=== PATIENT | female | born 1955 | race American Indian/Alaskan Native ===

== ENCOUNTER 2017-02-02 15:29 | Inpatient (IN) | payer BC ==
--- NOTE | 2017-02-02 15:59 | ED PDOC ---
Arrival/HPI - General Chief Complaint: Medical Clearance Time Seen by Provider: 02/02/17 15:47 Historian: Patient, Other (Fianc) - History of Present Illness Time/Duration: > week Symptom Onset: Gradual Symptom Course: Worsening Quality: Aching, Pressure Severity Level: Moderate Activities at Onset: Rest Associated Symptoms (Text): 02/02/17 15:55 Patient complains of approximately a 1-2 week history of generalized pressure- like headache. There is been some nausea and vomiting. Currently there is no nausea. Currently there is no headache. She has seen her PMD several times for these complaints. She had a CT scan of the head as an outpatient today. She was called by her PMD to go to the emergency department for an abnormal CT scan. I reviewed the outpatient CT scan this morning, and it appears that she has 2 metastatic brain masses. Unclear where the primary is. Past Medical History - Infectious Disease Hx of Infectious Diseases: None - Reproductive Menopause: Yes - Cardiac Hx Hypertension: Yes - Psychiatric Hx Depression: No Hx Emotional Abuse: No Hx Physical Abuse: No Hx Substance Use: No - Surgical History Hx Orthopedic Surgery: Yes (R KNEE) - Anesthesia Hx Anesthesia: Yes Hx Anesthesia Reactions: No Hx Malignant Hyperthermia: No - Suicidal Assessment Feels Threatened In Home Enviroment: No Family/Social History - Physician Review Nursing Documentation Reviewed: Yes Family/Social History: Unknown Family HX Smoking Status: Light Smoker < 10 Cigarettes Daily Hx Alcohol Use: Yes Frequency of alcohol use: Socially Hx Substance Use: No Hx Substance Use Treatment: No Allergies/Home Meds Allergies/Adverse Reactions: Allergies No Known Allergies Allergy (Verified 02/02/17 15:40) Review of Systems - Physician Review All systems were reviewed & negative as marked: Yes - Review of Systems Constitutional: Fatigue. absent: Fevers Respiratory: absent: SOB, Cough Cardiovascular: absent: Chest Pain, Palpitations, Syncope Gastrointestinal: Nausea, Vomiting. absent: Abdominal Pain, Diarrhea Neurological: Headache, Dizziness. absent: Focal Weakness, Gait Changes, Speech Changes, Facial Droop, Disequilibrium, Seizure Physical Exam Vital Signs Temp Pulse Resp BP Pulse Ox 02/02/17 15:52 97.8 F 82 16 119/66 98 02/02/17 15:33 97.6 F 93 H 19 115/67 98 Temperature: Afebrile Blood Pressure: Normal Pulse: Regular Respiratory Rate: Normal Appearance: Positive for: Well-Appearing, Non-Toxic, Comfortable Pain Distress: None Mental Status: Positive for: Alert and Oriented X 3 - Systems Exam Head: Present: Atraumatic, Normocephalic Pupils: Present: PERRL Extroacular Muscles: Present: EOMI Conjunctiva: Present: Normal Ears: Present: NORMAL TM, Normal Canal. No: Erythema Mouth: Present: Moist Mucous Membranes Pharnyx: No: ERYTHEMA, EXUDATE, TONSILS ENLARGED Neck: Present: Normal Range of Motion Respiratory/Chest: Present: Clear to Auscultation, Good Air Exchange, Decreased Breath Sounds. No: Respiratory Distress, Accessory Muscle Use Cardiovascular: Present: Regular Rate and Rhythm, Normal S1, S2. No: Murmurs Abdomen: Present: Normal Bowel Sounds. No: Tenderness, Distention, Peritoneal Signs, Rebound, Guarding Upper Extremity: Present: Normal Inspection. No: Cyanosis, Edema Lower Extremity: Present: Normal Inspection. No: Edema Neurological: Present: GCS=15, CN II-XII Intact, Speech Normal, Motor Func Grossly Intact, Normal Cerebellar Funct, Gait Normal Skin: Present: Warm, Dry, Normal Color. No: Rashes Psychiatric: Present: Alert, Oriented x 3, Normal Insight, Normal Concentration Medical Decision Making ED Course and Treatment: 02/02/17 16:02 Discussed in detail with Dr. Darby. Patient has an unknown primary. She requested the patient be admitted to telemetry because of her seizure risk and consults with neurology and neurosurgery, Dr Paz and Kaveh. 02/02/17 16:08 EKG shows normal sinus rhythm rate approximately 90 with no acute changes 02/02/17 16:13 Discussed with who requests MRI with gadolinium and Decadron 4 mg IV every 6 hours and he will see the patient in the morning. I will order the MRI for him. 02/02/17 16:[address]V Paz, who will see the patient in consult - Lab Interpretations Lab Results: 02/02/17 16:00 Lab Results 02/02/17 16:00: WBC 5.3, RBC 5.35, Hgb 17.2 H, Hct 48.5 H, MCV 90.7, MCH 32.1, MCHC 35.5, RDW 12.5, Plt Count 213, MPV 10.2, Gran % 73.9 H, Lymph % (Auto) 21.7 L, [place] % (Auto) 3.6, Eos % (Auto) 0.6 L, Baso % (Auto) 0.2, Gran # 3.88, Lymph # 1.1 L, [place] # 0.2, Eos # 0.0, Baso # 0.01 - RAD Interpretation Radiology Orders: 02/02/17 15:53 CHEST PORTABLE [RAD] Stat 02/02/17 16:14 BRAIN WITH CONTRAST [MRI] Stat Chest 1 view shows no infiltrate effusion or cardiomegaly 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 - Medication Orders Current Medication Orders: Discontinued Medications Dexamethasone (Decadron Inj) 10 mg IVP STAT STA Stop: 02/02/17 15:55 Last Admin: 02/02/17 16:11 Dose: 10 MG IVP Administration Document 02/02/17 16:11 [email or web address] (Rec: 02/02/17 16:12 [email or web address] [id number]) Charges for Administration # of IVP Administrations 1 Ondansetron HCl (Zofran Inj) 4 mg IVP ONCE ONE Stop: 02/02/17 15:55 Last Admin: 02/02/17 16:12 Dose: 4 MG IVP Administration Document 02/02/17 16:12 [email or web address] (Rec: 02/02/17 16:12 [email or web address] [id number]) Charges for Administration # of IVP Administrations 1 Disposition/Present on Arrival - Present on Arrival Any Indicators Present on Arrival: No History of DVT/PE: No History of Uncontrolled Diabetes: No Urinary Catheter: No History of Decub. Ulcer: No History Surgical Site Infection Following: None - Disposition Have Diagnosis and Disposition been Completed?: Yes Diagnosis: Mass of brain Disposition: HOSPITALIZED Disposition Time: 16:34 Patient Plan: Admission, Telemetry Condition: FAIR
[2017-02-02 16:21] LABS: ADD MANUAL DIFF? NO
[2017-02-02 16:24] LABS: BASO # 0.01 K/mm3 (0.0-2.0); BASO % 0.2 % (0.0-3.0); EOS % 0.6 % (1.5-5.0); GRAN # 3.88 (1.4-6.5); GRAN % 73.9 % (50.0-68.0); HEMATOCRIT 48.5 % (36.0-48.0); LYMPH # 1.1 (1.2-3.4); LYMPH % 21.7 % (22.0-35.0); MEAN CELL VOLUME 90.7 fL (80.0-105.0); MEAN CORPUSCULAR HEMOGLOBIN 32.1 pg (25.0-35.0); MEAN CORPUSCULAR HGB CONC 35.5 g/dl (31.0-37.0); MEAN PLATELET VOLUME 10.2 fl (7.0-11.0); MONO # 0.2 (0.1-0.6); MONO % 3.6 % (1.0-6.0); PLATELET COUNT 213 10^3/uL (120.0-450.0); RED CELL DISTRIBUTION WIDTH 12.5 % (11.5-14.5); WHITE BLOOD COUNT 5.3 10^3/ul (4.5-11.0)
[2017-02-02 16:33] LABS: ALB/GLOB RATIO 1.1 (1.1-1.8); ALKALINE PHOSPHATASE 98 U/L (38-133); ALT/SGPT 12 U/L (7-56); AST/SGOT 18 U/L (15-39); BILIRUBIN,TOTAL 0.8 mg/dL (0.2-1.3); BLOOD UREA NITROGEN 15 mg/dL (7-21); CARBON DIOXIDE 29 mmol/L (21-33); CHLORIDE 100 mmol/L (98-107); GFR AFRICAN-AMERICAN > 60; GLUCOSE,RANDOM 114 mg/dL (70-110); SODIUM 141 mmol/L (132-148); TOTAL PROTEIN 8.4 g/dL (5.8-8.3)
[2017-02-02 16:36] LABS: INR 1.02 (0.93-1.08); PARTIAL THROMBOPLASTIN TIME 31.3 Seconds (23.7-30.8)
[2017-02-02 16:45] LABS: TROPONIN I < 0.01 ng/mL
--- NOTE | 2017-02-02 17:07 | RAD ---
HISTORY: admit COMPARISON: No prior. FINDINGS: LUNGS: No active pulmonary disease. PLEURA: No significant pleural effusion identified, no pneumothorax apparent. CARDIOVASCULAR: Normal. OSSEOUS STRUCTURES: No significant abnormalities. VISUALIZED UPPER ABDOMEN: Normal. OTHER FINDINGS: None. IMPRESSION: No active disease.
--- NOTE | 2017-02-02 17:56 | MRI ---
PROCEDURE: MRI BRAIN WITH AND WITHOUT CONTRAST HISTORY: mass COMPARISON: CT of the head earlier same day TECHNIQUE: Multiplanar, multisequence MR images of the brain were obtained with and without intravenous contrast enhancement. 15 cc of Omniscan FINDINGS: HEMORRHAGE: None DWI: No evidence of an acute or early subacute infarction. BRAIN PARENCHYMA: The MRI better characterizes the mass is seen earlier on CT. The masses in the frontal lobes appear to be contiguous but separate. There is a predominantly solid enhancing mass in the right frontal lobe inferiorly and anteriorly measuring 2 x 3.1 cm on axial image 12 series 12. In the left frontal lobe there is a more cystic appearing mass with an enhancing rim measuring 3.5 x 5.7 cm. This compresses the left frontal horn and may be invading the corpus callosum. There is some mass effect midline shift to the right. There is a cystic mass in the right cerebellar hemisphere with a thick enhancing rim. There is a moderate amount of vasogenic edema. This mass compresses the 4th ventricle and also produces tonsillar herniation into the foramen magnum inferiorly and loss of the basal cisterns superiorly. The tonsils extend 5 mm below the foramen magnum. ENHANCEMENT: As above VENTRICLES: There is mild hydrocephalus with enlargement of the temporal horns. CRANIUM: Unremarkable. ORBITS: Grossly unremarkable. PARANASAL SINUSES/MASTOIDS: Clear VASCULAR SYSTEM: Skull base flow voids intact. OTHER FINDINGS: Findings were discussed with Dr. Paniagua at 5:30 p.m. 02/02/2017. IMPRESSION: Complex cystic and solid masses in both frontal lobes and the right cerebellar hemisphere consistent with metastatic disease. There is mild hydrocephalus and tonsillar herniation as described above
[2017-02-02] MEDS: Dexamethasone 4 mg/1 ml IVP SCH (21:21)
[2017-02-02] MEDS ORDERED: Influenza Vaccine 45 MCG/0.5 ml IM ONE (21:30)
[2017-02-02] MEDS ORDERED: Pneumococcal 23-Valent Vaccine IM ONE (21:30)
[2017-02-02 21:31] VITALS: BMI 25.4
--- NOTE | 2017-02-02 22:56 | CON ---
DATE: 02/02/2017 This is a 61-year-old black female with past medical history not significant. Came with headache whi ch is pressure-like headache for the last 1-2 weeks, with some nausea and vomiting. She was sent fro m the office. CAT scan of the head showed multiple metastatic lesions, so called to evaluate the pat ient. PAST MEDICAL HISTORY: As above. REVIEW OF SYSTEMS: A 10-point review of system was negative. On examination, blood pressure 115/67. HEENT: Normocephalic, atraumatic. NECK: Supple. NEUROLOGIC EXAMINATION: Alert, awake, oriented x 3. No aphasia. Cranial nerves II-XII were tested. Pupils reactive. EOM intact. Motor Examination: Moves all the extremities equally. Tone normal. Deep tendon reflexes 1+. Both plantars are downgoing. Sensory: No dysmetria, no sensory findings . Cerebellar: Gait deferred. IMPRESSION: A 61-year-old black female with no significant past medical history, came with a history of headaches for the past 2 weeks. MRA of the head was done which showed multiple metastatic lesion s in the brain. The patient was started on Decadron, and also Keppra 500 mg p.o. twice a day. Will do EEG on Saturday, and neurosurgeon, Dr. Ward, on the case, and oncologist also on the case. Workup is in progress. Will follow up. Matias Paz MD cc: [id number] TT: 02/02/2017 22:55:21 Confirmation # [id number] Dictation # [id number] dominick
--- NOTE | 2017-02-03 03:28 | HP ---
CHIEF COMPLAINT: Abnormal CAT scan of the head and memory problem. HISTORY OF PRESENT ILLNESS: The patient is a 61-year-old lady with history of hypertension, hypercho lesterolemia, was sent from her job to my office for medical clearance because the patient was forget ting things. I did her mini mental status test in my office and sent her for CAT scan of the head an d neurologist followup, but today I received a call from Dr. Olivera that CAT scan is not normal. The n, my office called the patient in her home to come in the Emergency Room, then patient came to the E mergency Room. MRI is done. I spoke to ER doctor Dr. Storey who admitted the patient. The ER physician said that she had an episode of lightheadedness and one attack of nausea, vomiting, but tod ay she did not have any nausea, or vomiting. PAST MEDICAL HISTORY: Menopause, hypertension, history of right knee surgery. FAMILY HISTORY: Father and mother, noncontributory. HABITS: Light smoker, less than 10 cigarettes per day. Alcohol use, yes. SOCIAL HISTORY: Substance abuse, never. ALLERGIES: The patient is not allergic with any medications. REVIEW OF SYSTEMS: The patient was seen and examined, at the moment no nausea or vomiting. No heada kali, no dizziness. No facial droop, no seizures, no gait change, no speech change. No fever, no chi lls. Does not look like toxic. PHYSICAL EXAMINATION: VITAL SIGNS: Temperature 98.8, pulse 70, respiratory rate 16, blood pressure 105/72, and pulse oxime try 98. HEENT: Head normocephalic, atraumatic. Eyes: PERRLA. Extraocular movements intact. Conjunctivae c lear. Eyelids unremarkable. Nose patent. Mucous membranes moist. NECK: Supple. No carotid bruit, JVD or thyromegaly. CHEST: No chest pain, no palpitation. ABDOMEN: Soft. Bowel sounds positive. No organomegaly. EXTREMITIES: No edema, no cyanosis. NEUROLOGIC: The patient is awake, alert, moving all 4 extremities. No focal deficits. LABORATORY DATA: White blood cell is 5.3, hemoglobin 7.2, hematocrit 48.5, platelets 213. Sodium 14 1, potassium 4.0, BUN 15, creatinine 0.9, glucose 114. Liver function tests within normal limits. ASSESSMENT AND PLAN: The patient is a 61-year-old lady with polycythemia, hyperglycemia, history of hypertension, hypercholesterolemia and has memory problem. Did MRI of the head. Complex cystic and solid masses in both the frontal lobes and the right cerebella and is consistent with metastatic dise ase. There is mild hydrocephalus and tonsillar herniation as described above. Discussion done with Dr. Michael Olivera and Dr. Storey physician. Chest x-ray, no active disease. The patient guillaume t for mammography on 03/03/2016 and that was within normal limits. Consult called with Dr. Paz t neurologist and Dr. Lisandro Linn. Started the patient on dexamethasone by Dr. Matias Paz. Flu vaccination given. Started on Keppra to prevent seizures. Pneumococcus given. Tylenol in franck e if she has headache, but she does not have headache. Zestoretic for her hypertension. We will do CAT scan of chest and abdomen. We will try to locate the primary. Gastrointestinal and deep venous thrombosis prophylaxis. Repeat labs. We will follow up. Yaneth Darby MD cc: [id number] TT: 02/03/2017 03:27:14 [email or web address]
[2017-02-03] MEDS: Dexamethasone 4 mg/1 ml IVP SCH ×3 (05:53→21:44)
[2017-02-03 08:00] LABS: HEMATOCRIT 46.3 % (36.0-48.0); MEAN CELL VOLUME 89.9 fL (80.0-105.0); MEAN CORPUSCULAR HEMOGLOBIN 32.4 pg (25.0-35.0); MEAN CORPUSCULAR HGB CONC 36.1 g/dl (31.0-37.0); MEAN PLATELET VOLUME 10.4 fl (7.0-11.0); RED CELL DISTRIBUTION WIDTH 12.4 % (11.5-14.5); WHITE BLOOD COUNT 5.3 10^3/ul (4.5-11.0)
[2017-02-03] MEDS ORDERED: Barium Sulfate Susp 2.1% w/v, 2.0% w/w 450 mL Bottle PO ONE (08:03)
[2017-02-03 08:15] LABS: BLOOD UREA NITROGEN 13 mg/dL (7-21); CALCIUM 10.5 mg/dL (8.4-10.5); CARBON DIOXIDE 25 mmol/L (21-33); CHLORIDE 102 mmol/L (95-110); GFR AFRICAN-AMERICAN > 60; GLUCOSE,RANDOM 109 mg/dL (70-110); SODIUM 141 mmol/L (132-148)
[2017-02-03 08:22] LABS: POTASSIUM 4.3 mmol/L (3.6-5.0)
--- NOTE | 2017-02-03 09:01 | CARD ---
APPROVED REPORT EKG Measurement Heart [id number] MD [id number] <Conclusion> Normal sinus rhythm Possible Left atrial enlargement Borderline ECG
--- NOTE | 2017-02-03 13:11 | CT ---
PROCEDURE: CT Abdomen and Pelvis without intravenous contrast HISTORY: R/O METS COMPARISON: None. TECHNIQUE: Without contrast. Contrast Dose: Radiation dose: Total exam DLP = 393 mGy-cm. FINDINGS: LOWER THORAX: Unremarkable. LIVER: Unremarkable. No gross lesion or ductal dilatation. GALLBLADDER AND BILE DUCTS: Unremarkable. PANCREAS: Unremarkable. No gross lesion or ductal dilatation. SPLEEN: Unremarkable. ADRENALS: Unremarkable. No mass. KIDNEYS AND URETERS: Unremarkable. No hydronephrosis. No solid mass. VASCULATURE: Unremarkable. No aortic aneurysm. BOWEL: Unremarkable. No obstruction. No gross mural thickening. APPENDIX: Unremarkable. Normal appendix. PERITONEUM: Unremarkable. No free fluid. No free air. LYMPH NODES: Unremarkable. No enlarged lymph nodes. BLADDER: Unremarkable. REPRODUCTIVE: Hysterectomy BONES: No acute fracture. OTHER FINDINGS: None. IMPRESSION: No evidence of primary or metastatic malignancy.
--- NOTE | 2017-02-03 13:17 | CT ---
PROCEDURE: CT Chest without contrast HISTORY: R/O CA COMPARISON: MRI of the brain showing solid and cystic metastatic lesions TECHNIQUE: Contiguous axial images were obtained through the chest without intravenous contrast enhancement. Sagittal and coronal reconstructions were performed. Radiation dose (DLP): 275 mGy-cm. FINDINGS: LUNGS: There is a large lung nodule in the left lung apex posteriorly measuring 12 x 16 mm. This is seen on image 14 series 4. This could represent a primary or metastatic malignancy. There is a 7 mm lung nodule in the right upper lobe posteriorly seen on image 24 of series 4. This could represent a metastatic lesion or noncalcified granuloma. Emphysematous changes are seen in the upper lobes. MEDIASTINUM: Unremarkable thoracic aorta. No aneurysm. Normal sized heart. Main pulmonary artery unremarkable. No vascular congestion. There is mediastinal and hilar adenopathy that is calcified consistent with previous granulomatous disease or tuberculosis. PLEURA: No pleural fluid. No pneumothorax. BONES: No fracture. No destructive lesion. UPPER ABDOMEN: Grossly unremarkable. OTHER FINDINGS: None. IMPRESSION: 12 x 16 mm lung nodule in the left lung apex suspicious for a primary malignancy. Small 7 mm nodule right upper lobe posteriorly. Multiple calcified mediastinal lymph nodes consistent with previous granulomatous infection.
--- NOTE | 2017-02-03 15:20 | PN ---
DATE: 02/03/2017 The patient is a 61-year-old female. The patient seen and examined on the bedside, looks comfortable. Dr. Ward, neurosurgeon, was on the bedside also. We interviewed patient together. The patient is still actively smoking from many years. No nausea, vomiting, diarrhea. No hematuria, no hematochezia. Today no headache, no chest pain, no fever, no chills. PHYSICAL EXAMINATION: VITAL SIGNS: Temperature 98.6, pulse 80 , blood pressure 110/68, respiratory rate 16. HEENT: Head normocephalic, atraumatic. Eyes: PERRLA, extraocular muscles intact. Conjunctivae pink. Eyelids unremarkable. Nose patent. Mucous membranes moist. NECK: Supple. No carotid bruit, no JVD, no thyromegaly. CHEST: Bilaterally symmetrical. HEART: S1, S2 positive. LUNGS: Clear to auscultation. ABDOMEN: Soft. Bowel sounds positive. No organomegaly. EXTREMITIES: No edema, no cyanosis. NEUROLOGIC: The patient is awake, alert, moving all 4 extremities. No focal deficits. MEDICATIONS: Decadron, Keppra, Tylenol, Zestril. LABORATORIES: White blood cells 5.3, hemoglobin 15.7, hematocrit 46.3, platelets 214. Sodium 141, potassium 4.3, BUN noted , creatinine 0.7, glucose 109. TSH 0.22. ASSESSMENT AND PLAN: The patient is a 61-year-old lady with polycythemia secondary to smoking, hyperglycemia, hyperthyroidism. Came with densities in the brain. Did CAT scan of the chest. Looks like she has 12 mm x 6 mm lung nodule in the left upper apex, suspicious of primary malignancy, small 7 mm nodule right upper lobe posteriorly, multiple calcified mediastinal lymph nodes consistent with previous granulomatous infection. The patient has history of hypertension, hypercholesterolemia, changing of memory, that is why we did CAT scan of the head, hyperglycemia. MRA of the head and CAT scan of the head and MRI of the abdomen and pelvis reviewed. Length of time discussion done with Dr. Ward. Plan is to go for surgery, but we are getting clearance from cardiology and from pulmonary. We will follow up according to that. Gastrointestinal and deep venous thrombosis prophylaxis. Yaneth Darby MD cc: [id number] TT: 02/03/2017 15:19:29 Confirmation # [id number] Dictation # [id number] MTDD
--- NOTE | 2017-02-04 02:20 | DS ---
SUBJECTIVE: This is a 61-year-old lady who apparently has been noted primarily by her coworkers over the past several weeks to have a little bit change in behavior. She has become forgetful a little b it more emotional and antagonist, perhaps disoriented. She is also noticed significant onset o f severe headaches, particularly over the past 2-3 weeks, question of some nausea, possibly vomiting as well. She underwent an outpatient CT of the brain, which documented 2 large masses, cerebellar an d frontal, was brought into the ER and underwent an MRI of the brain. Neurosurgical evaluation was r equested. PAST MEDICAL HISTORY: Her past medical history most salient simply for hypercholesterolemia, hyperte nsion, no other significant ongoing medical problems. Her history, medications, allergies all reviewed in the chart. Of note is she was taking Naprosyn pr obably twice a day for the headaches up until the day of admission. PHYSICAL EXAMINATION: She is bright, awake, alert. She is oriented x 3. She follows all commands. Pupils equal and reactive. EOMs are full. She has 5/5 strength in 4 extremities. She has a fair a mount of bilateral pronator drift. [id number] is somewhat off on the right, but normal on the le ft. Sensation is grossly intact. Reflexes are minimally if at all increased. Plantars are mute blanca aterally. Gait was not tested. Films show unfortunately a large cystic enhancing mass in the right cerebellum with fair mass effect on the fourth ventricle and brainstem with mild hydrocephalus. There is another enhancing mass, that is predominantly in the right anterior frontal lobe, but does cross the midline of the corpus callos um over to the left side. This is more of an enhancing solid mass with a large cystic component as w ell. 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 In any case, the patient certainly requires decompressive/ biopsy. I would certainly start with the posterior fossa lesion as this is causing hydrocephalus and the beginning of brainstem compressi on. This will hopefully alleviate that and give us a diagnosis. It is my feeling that most likely t he patient will require at least decompression of the bifrontal lesion as well as because of its enor mous size. In any case, I relate the initial recommendation to the patient to undergo the suboccipit al craniectomy and excision of tumor. I explained to her what this would entail. We discussed the p otential risks, complications, alternatives and recovery time. Unfortunately, I think we will have t o hold off at least 3 days because of the significant amount of nonsteroidal anti-inflammatory medica tions the patient was taking. We have already placed her on IV steroids and this has made a good sig nificant difference in her symptoms. She is set for metastatic workup as well. I see that Dr. Nestor crum has ordered an EEG so we will accomplish this over the next couple of days and we will schedule her for the procedure towards the end of the week. Craig Ward MD cc: [id number] TT: 02/04/2017 02:18:57 hn
[2017-02-04] MEDS: Dexamethasone 4 mg/1 ml IVP SCH ×3 (06:16→21:14)
--- NOTE | 2017-02-04 16:27 | CARD ---
APPROVED REPORT EXAM: Two-dimensional and M-mode echocardiogram with Doppler and color Doppler. INDICATION Hypertension/HCVD 2D DIMENSIONS Left Atrium (2D)3.8 (1.6-4.0cm)IVSd1.0 (0.7-1.1cm) LVDd3.9 (3.9-5.9cm)PWd1.0 (0.7-1.1cm) LVDs2.4 (2.5-4.0cm)FS (%) 38.3 % LVEF (%)69.1 (>50%) M-Mode DIMENSIONS Aortic Root2.90 (2.2-3.7cm)Aortic Cusp Exc.1.40 (1.5-2.0cm) Aortic Valve AoV Peak Enqykdeb775.0cm/Daniella Peak GR.11mmHg Mitral Valve MV E Fersgxyl33.2cm/sMV A Dyucvasz94.0cm/sE/A ratio0.9 TDI E/Lateral E'0.0E/Medial E'0.0 Tricuspid Valve TR Peak [id number]/sRAP [id number] Peak Gr.28mmHg [id number] LEFT VENTRICLE The left ventricle is normal size. There is normal left ventricular wall thickness. The left ventricular function is normal.EF-65-70% There is normal LV segmental wall motion. Transmitral Doppler flow pattern is Grade III-reversible restrictive diastolic dysfunction. No left ventricle thrombus noted on this study. There is no ventricular septal defect visualized. There is no left ventricular aneurysm. There is no mass noted in the left ventricle. RIGHT VENTRICLE The right ventricle is normal size. There is normal right ventricular wall thickness. The right ventricular systolic function is normal. ATRIA The left atrium size is normal. The right atrium size is normal. The interatrial septum is intact with no evidence for an atrial septal defect. AORTIC VALVE The aortic valve is thickened but opens well. There is trace aortic regurgitation. There is no aortic valvular stenosis. There is no aortic valvular vegetation. MITRAL VALVE The mitral valve is thickened but opens well. Mitral regurgitation is trace to mild. There is no mitral valve stenosis. There is no evidence of mitral valve prolapse. TRICUSPID VALVE The tricuspid valve leaflets are thickened , but open well. There is trace tricuspid regurgitation.RVSP-38 mmofHg. There is no tricuspid valve stenosis. There is no tricuspid valve prolapse or vegetation. PULMONIC VALVE The pulmonary valve is normal in structure. There is trace pulmonic valvular regurgitation. There is no pulmonic valvular stenosis. GREAT VESSELS The aortic root is normal in size. The ascending aorta is normal in size. The pulmonary artery is normal. The IVC is normal in size and collapses >50% with inspiration. PERICARDIAL EFFUSION There is no pleural effusion. There is no pericardial effusion. <Conclusion> Normal Chamber Size. EF-65-70% Trace to Mild MR/TR Trace TR. RVSP-38 mmof Hg,
--- NOTE | 2017-02-04 18:50 | CON ---
DATE: 02/04/2017 The patient in room 361, bed 1. REASON FOR CONSULTATION: Hypertension, hypercholesterolemia, brain mass, cardiac evaluation for surg roxy. HISTORY OF PRESENT ILLNESS: The patient is a 61-year-old lady with history of hypertension, hypercho lesterolemia, who was noticed by the colleagues in the office that patient had become forgetful. She also complained of headache for the last few weeks. The patient denies any chest pain, shortness of breath, palpitation. PAST HISTORY: Positive for hypertension, hyperlipidemia, right knee surgery, menopause. FAMILY HISTORY: Not significant. HABITS: The patient smokes less than 10 cigarettes a day, drinks only socially. No history of subst ance abuse. ALLERGIES: There are no allergies. REVIEW OF SYSTEMS: All the systems reviewed, positives mentioned in the history, others were negativ e. LIST OF HOME MEDICATIONS: The patient was taking: Naprosyn 500 mg p.o. q.12 hours p.r.n., Vasotec 2 0 mg p.o. daily. The patient's chest x-ray, no active disease. EKG is not done yet. MRI of the brain showed complex cystic and solid masses, both in frontal lobes and the right cerebellar hemisphere consistent with me tastatic disease. There is mild hydrocephalus and tonsillar herniation. Chest CT, ____ 16 mm lung n odule in the left lung apex, suspicious for primary malignancy; small 7 mm nodule right upper lobe po steriorly, multiple calcified ____ mediastinal lymph nodes consistent with previous granulomatous inf ection. EKG showed normal sinus rhythm. PHYSICAL EXAMINATION: VITAL SIGNS: Blood pressure 101/62, respirations 17, pulse 54, temperature 98.1. HEENT: Head is normocephalic. Eyes: Pupils normal. Conjunctivae normal. Nose and throat normal. NECK: JVP low. Carotid equal. THORAX: AP diameter normal. LUNGS: Clear. CARDIOVASCULAR: S1, S2. ABDOMEN: Soft, no tenderness, no organomegaly. Bowel sounds normal. EXTREMITIES: No clubbing, no cyanosis. LABORATORY DATA: WBC 5.3, hemoglobin 16.7, hematocrit 46.3, platelet 214. Sodium 141, potassium 4.3 , BUN 13, creatinine 0.7. TSH 0.22. AST 18, ALT 12. Troponin less than 0.01. DIAGNOSTIC DATA: Chest x-ray: No active disease. EKG showed normal sinus rhythm. Brain MRI showed ____ cystic and solid mass of both frontal lobes and the right cerebellar hemisphere consistent with metastatic disease. There is mild hydrocephalus and tonsillar herniation. CAT scan of the chest sh owed ____ 16 mm lung nodule in the left lung apex suspicious for primary malignancy, small 7 mm nodul e in the right upper lobe posteriorly, multiple calcified mediastinal lymph nodes consistent with pre vious granulomatous infection. DIAGNOSES: Brain tumor, lung mass, hypertension, hydrocephalus. PLAN: Clinically, patient's cardiac status is stable. The patient if needs surgery can go for surge ry. We will do echocardiogram to do LV function. The patient on Decadron 4 mg IV q.8 hours, Keppra 500 mg b.i.d., lisinopril 20 mg daily. The patient can go for surgery as a moderate risk. We will f leanne with you. Chica Fang MD cc: [id number] TT: 02/04/2017 18:49:31 Confirmation # [id number] Dictation # [id number] sn
--- NOTE | 2017-02-05 02:37 | PN ---
DATE: 02/04/2017 SUBJECTIVE: The patient seen and examined on the bedside, looks comfortable. No nausea, vomiting, or diarrhea. No hematuria or hematochezia. No swelling of the legs. No chest pain, no palpitations. No headache, no dizziness. No fever or chills. PHYSICAL EXAMINATION: VITAL SIGNS: Temperature 98.9, pulse 52, blood pressure 97/59, respiratory rate 16. HEENT: Head normocephalic and atraumatic. Eyes: PERRLA. Extraocular muscles intact. Conjunctivae pink. Eyelids unremarkable. Nose patent. NECK: Supple. No carotid bruit, JVD or thyromegaly. CHEST: Bilaterally symmetrical. HEART: S1 positive. LUNGS: Clear to auscultation. ABDOMEN: Soft. Bowel sounds present. No organomegaly. EXTREMITIES: No edema, no cyanosis. NEUROLOGIC: The patient is awake, alert, moving all 4 extremities. No focal deficits. MEDICATIONS: Decadron, DuoNeb, Keppra, Tylenol, and Zestril. LABORATORY DATA: White blood cells 5.3, hemoglobin 15.7, hematocrit 46.3, platelets are 214. TSH 0.22. ASSESSMENT AND PLAN: Ms. Nicol Brannon of 61-year-old lady with polycythemia may be secondary to heavy smoking, hyperglycemia, hypertension, hypercholesterolemia, right knee surgery, brain tumor, lung masses and hydrocephalus. The patient's cardiac status looks status as per Dr. Fang and go for surgery. He did echocardiography to see left ventricular function. We will continue on Decadron, Keppra and Lisinopril. Echocardiography reviewed by me, seen Dr. Sylvia Srinivasan neurosurgeon. According to neurologist, this is somewhat off an odd appearance of metastatic considering the crossing of the corpus callosum much more consistent with but glioblastoma of multifocal glioblastoma is also unusual, but patient certainly require the decompression that procedure for lesions is causing hydrocephalus and beginning of brainstem compression. This will hopefully elevate that would give us a diagnosis. Dr. Paz wants to do EEG, deep venous thrombosis with prophylaxis. Repeat labs. Discussion done with the patient. We will follow up. Yaneth Darby MD cc: [id number] TT: 02/05/2017 02:37:04 Confirmation # [id number] Dictation # [id number] jonathan KWON
[2017-02-05] MEDS: Albuterol-Ipratrop 3 mg / 0.5 (3 ml) UD IH SCH ×5 (04:00→23:03)
[2017-02-05] MEDS: Dexamethasone 4 mg/1 ml IVP SCH ×3 (05:58→21:26)
--- NOTE | 2017-02-05 08:22 | PN ---
DATE: 02/04/2017 CHIEF COMPLAINT: ____ had an abnormal CAT scan of the head. SUBJECTIVE: The patient seen and examined at bedside. The patient's MRI of the brain showed complex cystic and solid masses in both frontal lobes and right cerebellar hemisphere consistent with metast atic disease with some mild hydrocephalus, tonsillar herniation as described given that there is an e nhancing rim mass of 3.5 x 5.7 in the left frontal lobe and compressing the left horn and maybe even going to the corpus callosum. There is some mass effect from mild shift to the right and mass compre ssion of the ____ ventricle possibly producing the tonsillar herniation into the foramen magnum. Tony rosurgery is on board. Consult reviewed and they recommended the patient requires some decompressive biopsy and a suboccipital craniectomy and excision of the tumor. Currently, the patient is on Keppr a for seizure prophylaxis and has been started on ____ for decreasing inflammation. The patient stil l has a mild headache, but not as increased intensity. CT chest without contrast showed ____ x 16 mm lung nodule in the left apex suspicious for primary malignancy and a small 7 mm nodule in the right upper lobe posteriorly. No acute events overnight. PAST MEDICAL HISTORY: History of hypercholesterolemia, hypertension. SOCIAL HISTORY: No illicit drug use or ETOH abuse, but is a daily smoker. FAMILY HISTORY: Noncontributory. MEDICATIONS: Reviewed via nurse's reconciliation sheet. ALLERGIES: No known drug allergies. REVIEW OF SYSTEMS: A 14-point is negative except for in the HPI. PHYSICAL EXAMINATION: VITAL SIGNS: Temperature of 98.1, pulse rate of 54, blood pressure 101/62, respiratory rate of 17, o xygen ____% via room air. GENERAL: The patient is sitting up in bed, in no acute distress. HEENT: Atraumatic, normocephalic. PERRLA, extraocular muscles intact. NECK: Supple, no JVD, no adenopathy noted. LUNGS: Clear to auscultation. No adventitious sounds. HEART: S1, S2, normal rate and rhythm. No murmurs, rubs, or gallops. ABDOMEN: Soft, nontender, nondistended. Bowel sounds present. EXTREMITIES: No clubbing, no cyanosis. Peripheral pulses 2+ felt bilaterally. NEUROLOGIC: The patient is alert, oriented to person, place, month and year. Speech is fluent, with out errors. Cranial nerves II-XII are intact. MOTOR: Moves all extremities equally. Toes are downgoing bilaterally. Normal tone and has 5/5 stre ngth in all 4 extremities. Toes are upgoing bilaterally and ____. SENSORY: Light touch, pinprick, proprioception, vibration intact. COORDINATION: [id number] is slightly dysmetric on the right, but normal on the left. DEEP TENDON REFLEXES: 2+ throughout. LABORATORIES: Sodium is 141, potassium ____ chloride 103, carbon dioxide 25, BUN ____, creatinine 0. 7, random glucose ____. A1c is 5.4. ASSESSMENT AND PLAN: This is a 61-year-old woman with history of hypertension, history of hyperlipid emia, who presented to the hospital because had poor memory issues. Apparently, had some change in b ehavior a few weeks ago at work ____ co-workers and having headaches for the past 2-3 weeks and was s ent for an outpatient CAT scan, which ____ 2 large masses, cerebellar and frontal, was brought in the ER. The patient underwent an MRI of the brain, which showed masses in the frontal lobes ____ separa te. There is a predominantly solid enhancing mass in the right frontal lobe inferiorly and anteriorl y measuring 2 cm x cm on image, series 12. In the left frontal lobe, there is more cysti c appearing of the mass with enhancing rim measuring 3.5 cm x 5.7 cm and questionable left frontal ho rn and may be invading the corpus callosum with a mild shift to the right and there is a cystic mass in the right cerebellar hemisphere with a thick enhancing rim, some moderate vasogenic edema mildly c ompressing the fourth ventricle and producing mild tonsillar herniation, though neurologically the pa tient is stable. Neurosurgery is on board, who recommends the patient to undergo a suboccipital cran iotomy with excision of the tumor and some underlying decompression to prevent further hydrocephalus and patient is currently on dexamethasone ____ vasogenic edema ____ IV q. 8 and is on Keppra for seiz ure prophylaxis. At this time, the patient's abnormal behavior and headaches and poor memory are sec ondary to the cerebral mass, multifocal in type, unsure of what the pathology is. Once the ____ work up is done and biopsy of the mass is taken. Her CT scan of the chest showed a large lung nodule ____ mm in the left upper apex suspicious for primary malignancy and a small 7 mm nodule in the right upp er lobe posteriorly. She is a chronic smoker. At this time, I recommend: 1. Oncology evaluation. 2. Follow up with neurosurgical recommendations for the suboccipital craniectomy and excision of the tumor and decompressive surgery. 3. Continue with dexamethasone ____ mg IV q. 8 hours ____ antiinflammatory as well as decreasing the vasogenic edema. 4. Keep the patient's bed elevated at 30 degrees angle. 5. Keppra 500 mg p.o. b.i.d. for seizure prophylaxis. 6. Will need cardiac clearance for surgical procedure and continue ____ oncology recommendations as well. At this time, case discussed with the patient at bedside. Continue with current present medical angelocharissa woo. Victorino Paz MD cc: [id number] TT: 02/04/2017 15:40:11 Confirmation # [id number] Dictation # [id number] en
--- NOTE | 2017-02-05 09:58 | CON ---
DATE: 02/04/2017 REFERRING PHYSICIAN: Dr. Darby. REASON FOR CONSULT: Chronic lung disease, has lung nodules, suspected lung cancer, primary, with met astatic disease to the brain. HISTORY OF PRESENT ILLNESS: This is a 61-year-old female with history of hypertension, hyperlipidemi a, active smoker. She was referred from her employer to Dr. Darby apparently. They noticed the pat ient is changed. Further workup of CAT scan of the head was done which shows brain mass with probabl y herniation of the tonsils. She was sent to Emergency Room and admitted to hospital. Seen by neuro logy and neurosurgery. Started on steroid. Presently sitting side of the bed. Has some cough. No shortness of breath, no chest pain. No nausea, no vomiting or diarrhea. No leg pain or leg swelling . PAST MEDICAL HISTORY: Hypertension, hyperlipidemia, may have COPD. FAMILY HISTORY: No significant cardiopulmonary disease reported. SOCIAL HISTORY: She has a positive history of smoking. Denied any alcohol use. ALLERGIES: None known. MEDICATIONS: She is on Decadron 4 mg q. 8 hours, Keppra 500 mg twice a day, Tylenol on a p.r.n. basi s, Zestril 20 mg daily. REVIEW OF SYSTEMS: Denies any headache, no rhinitis. No chest pains. On and off mild cough. No na usea, no vomiting, and no diarrhea and no dysuria. No leg pain or leg swelling. PHYSICAL EXAMINATION: GENERAL: Sitting side of the bed, no acute distress. HEENT: She has an asymmetrical face. No thrush. NECK: Supple. LUNGS: Have a few scattered rhonchi. HEART: S1 and S2. ABDOMEN: Soft, nontender. No organomegaly. EXTREMITIES: There is no edema. NEUROLOGIC: Awake, alert. Follows simple commands. PHYSICAL EXAMINATION: GENERAL: In no acute distress. VITAL SIGNS: Temp is 98, heart rate 52, respiratory rate 16, blood pressure 97/59, pulse ox 98% on r oom air. HEENT: Moist mucous membranes. Asymmetrical face. Crowded airway. LABORATORY DATA: Shows hemoglobin 16.7, hematocrit 46.3, WBC 5.3, platelet is 214. INR 1.02, PTT is 31. Sodium 141, potassium 4.3, chloride 102, bicarbonate 25, BUN 13, creatinine 0.7, glucose 109, c alcium 10.5. TSH 0.22. AST 18, ALT 12, alkaline phosphatase is 98. Had a CAT scan of the chest done, which shows the 12 x 16 mm lung nodule in the left lung apex suspic ious for primary malignancy, also small 7 mm nodule in the right upper lobe posteriorly, multiple liza cified mediastinal lymph nodes noted probably suggestive of previous granulomatous disease. CT of th e abdomen was unremarkable. Brain MRI shows complex cystic and solid mass in both frontal lobes and right cerebellar hemisphere consistent with metastatic disease. There is mild hydrocephaly and tonsi llar herniation. Had echocardiogram done today which shows right ventricular systolic pressure is 38 , LV ejection fraction is 65-70%, trace to mild MR and TR. IMPRESSION AND PLAN: Hypertension, hyperlipidemia, may have component of chronic obstructive pulmona ry disease, active smoker, lung nodule with brain tumor with tonsillar herniation. Pulmonary status stable for possible craniotomy. Already on Decadron, ____ inhaled bronchodilator. Sleep apnea preca ution. If sedated, needs close cardiopulmonary monitoring. Gastric prophylaxis. SCD to lower extre mity. Thank you, and will follow with you. Chica Palmer MD cc: [id number] TT: 02/05/2017 09:38:35 Confirmation # [id number] Dictation # [id number] dewey
--- NOTE | 2017-02-05 15:10 | CP.PCM.PN ---
Subjective - Date & Time of Evaluation Date of Evaluation: 02/05/17 Time of Evaluation: 15:09 - Subjective Subjective: Stable scheduled for subocci[pital crani excision tumor Thurs AM d/w Pts daughter at length Objective - Vital Signs/Intake and Output Vital Signs (last 24 hours): Temp Pulse Resp BP Pulse Ox 97.8 F 60 18 115/67 98 02/05/17 08:48 02/05/17 10:40 02/05/17 08:48 02/05/17 10:40 02/05/17 08:48 Intake and Output: 02/05/17 02/05/17 06:59 18:59 Intake Total 780 980 Balance 780 980 - Medications Medications: Current Medications Acetaminophen (Tylenol 325mg Tab) 650 mg PO Q4H PRN PRN Reason: Headache Albuterol/Ipratropium (Duoneb 3 Mg/0.5 Mg (3 Ml) Ud) 3 ml IH [id number] [facility] Last Admin: 02/05/17 13:55 Dose: 3 ml Dexamethasone (Decadron Inj) 4 mg IVP Q8 JACQUIE Last Admin: 02/05/17 05:58 Dose: 4 mg Levetiracetam (Keppra) 500 mg PO BID [facility] Last Admin: 02/05/17 10:39 Dose: 500 mg Lisinopril (Zestril) 20 mg PO DAILY [facility] Last Admin: 02/05/17 10:40 Dose: 20 mg - Labs Labs: 02/03/17 07:40 02/03/17 07:40 PT 11.0 Seconds (9.9-11.8) 02/02/17 16:00 INR 1.02 (0.93-1.08) 02/02/17 16:00 APTT 31.3 Seconds (23.7-30.8) H 02/02/17 16:00
--- NOTE | 2017-02-05 15:25 | PN ---
DATE: 02/05/2017 CHIEF COMPLAINT: Followup for multiple new masses in the brain. SUBJECTIVE: The patient is seen and examined at bedside, sitting at the bedside, sitting at the edge of the bed, in no acute distress. Has mild headache, otherwise no seizures. On Keppra for seizure prophylaxis. EEG showed mild diffuse slowing bilaterally, but no evidence of any epileptiform activi ty. There is a lot of EMG muscle artifact throughout the EEG. The MRI of the brain shows complex cy stic and solid masses in both frontal lobes and right cerebellar hemisphere consistent with metastati c disease, mild hydrocephalus and tonsillar herniation. Neurosurgery is on board. They are waiting for cardiac clearance for possible suboccipital craniectomy and decompression. CT scan of the chest showed 12 mm x 60 mm lung nodule in the left lung apex, suspicious for primary malignancy and 7 mm no dule in the right upper lobe posteriorly with multiple calcified mediastinal lymph nodes. The patien t is already on Decadron for swelling. Sleep apnea precaution . PAST MEDICAL HISTORY: Hypercholesterolemia, hypertension. SOCIAL HISTORY: No illicit drug use or ETOH abuse, but is a daily smoker. FAMILY HISTORY: Noncontributory. MEDICATIONS: Reviewed via nurse's reconciliation sheet. ALLERGIES: No known drug allergies. REVIEW OF SYSTEMS: A 14-point review of systems is negative except for the HPI. PHYSICAL EXAMINATION: VITAL SIGNS: Temperature 97.8, pulse rate of 45, blood pressure of 115/67, respiratory rate of 18, o xygen 98% on room air. GENERAL: The patient is sitting up in bed in no acute distress. HEENT: Atraumatic, normocephalic. PERRLA. Extraocular muscles intact. NECK: Supple, no JVD, no adenopathy noted. LUNGS: Clear to auscultation. No adventitious sounds. HEART: S1, S2. Normal rate and rhythm. No murmurs, rubs, or gallops. ABDOMEN: Soft, nontender, nondistended. Bowel sounds are present. EXTREMITIES: No clubbing, no cyanosis. Peripheral pulses 2+ felt bilaterally. NEUROLOGIC: The patient is alert, oriented to person, place, month and year. Speech is fluent, with out any errors. Cranial nerves II through XII are intact. MOTOR: Moves all extremities equally. Tone is normal. Strength is 5/5 in both upper and lower extr emities. Toes are downgoing bilaterally. SENSORY: Light touch, pinprick, proprioception, vibration intact. DEEP TENDON REFLEXES: 2+ throughout. COORDINATION: [id number] intact, but slightly dysmetric on the right when compared to left. LABORATORY DATA: Reviewed and stable. ASSESSMENT AND PLAN: This is a 61-year-old -[place] woman with history of hypertension, hist ory of hyperlipidemia who presented to the hospital because it was noticed that the patient's memory was changing, was becoming more forgetful and was having headaches over the past couple of weeks. Ronquillo d a CAT scan which was abnormal for masses in the brain and underwent an MRI of the brain which showe d pretty much complex cystic solid masses in frontal lobes and right cerebellar hemisphere consistent with metastatic disease with mild hydrocephalus and tonsillar herniation. Though symptomatic, the p atient is doing well. The CAT scan also of the chest showing 12 mm x 60 mm lung nodule in the left l amy apex suspicious for primary malignancy and a small 7 mm nodule in the right upper lobe posteriorl y. Currently, neurosurgery is on board for possible decompression and suboccipital craniectomy for e xcision of the tumor and to prevent further hydrocephalus. At this time, recommend: 1. Continue with Decadron 4 mg IV q. 8 hours to decrease swelling. 2. Prophylactic seizures, therapy with Keppra 500 mg p.o. b.i.d. 3. The patient is bradycardic, has episodes of bradycardia and cardiology to follow up and clear for surgery. 4. Keep the head of the bed elevated at a 30 degree angle and avoid sedative medications if possible and continue current present medical management. EEG showed no evidence of any epileptiform activit y EMG artifact and some periods of slowing, otherwise overall stable. Once again, that you for this followup. Victorino Paz MD cc: [id number] TT: 02/05/2017 15:25:11 Confirmation # [id number] Dictation # [id number]
--- NOTE | 2017-02-05 15:35 | EEG ---
DATE: 02/02/2017 CONDITION OF RECORDING: Awake EEG. DIAGNOSIS: Cerebral mass, evaluate for seizures. MEDICATIONS: Reviewed via nurse's reconciliation. The patient is on Keppra. INTERPRETATION: This is a 16-channel international recording. The background activity is composed o f 7 cycles per second. There was an increased amount of beta activity of 16-20 cycles per second see n in this recording. There was also increased amount of theta activity of 5-7 cycles per second seen in this tracing. Drowsiness was characterized by mixed beta and theta activities. Sleep was charac terized by vertex transient waves, sleep spindles and bilateral slowing. Photic stimulation showed n o change in the tracing. No paroxysmal activity noted during this recording. There were some period s of diffuse slowing in bilateral cerebral areas, but no evidence of any epileptiform activity. Ther e was a lot of EMG artifact and a lot of movement artifact. CONCLUSION: This is overall a normal electroencephalogram showing no evidence of any epileptiform ac tivity, just some mild diffuse slowing. A lot of electromyogram artifact. Could repeat in the futur e. Please clinically correlate. Victorino Paz MD cc: [id number] TT: 02/05/2017 15:35:16 Confirmation # [id number] Dictation # [id number] mn
--- NOTE | 2017-02-05 15:48 | PN ---
DATE: 02/05/2017 REASON FOR CONSULTATION AND FOLLOWUP: Hypertension, hypercholesterolemia, brain mass, cardiac evalua tion for possible surgery. BRIEF CLINICAL HISTORY: A 61-year-old female with past medical history significant for hypertension, hyperlipidemia, noticed ____ patient is getting forgetfulness ____ so had a CAT scan done that shows a mass in the brain. Denies any chest pain, shortness of breath, any palpitation. PHYSICAL EXAMINATION: VITAL SIGNS: Temperature afebrile, heart rate 60, blood pressure 115/67. HEENT: PERRLA. Extraocular muscles intact. NECK: Supple. No carotid bruits. No thyromegaly. CHEST: Clear to auscultation. HEART: S1, S2 regular. ABDOMEN: Soft. EXTREMITIES: Clubbing and cyanosis negative. LABORATORY DATA: Blood workup as follows: WBC ____, hemoglobin ____, hematocrit 46.3, platelet coun t 214. Chemistry shows sodium 141, potassium 4.3, chloride 102, carbon dioxide 25, anion gap of 18, BUN 13, creatinine 0.7. TSH 0.22. The patient had echocardiography done yesterday that showed stephenie l chamber size, ejection fraction 65%-70%, trace to mild MR, trace to mild TR, right ventricular syst olic pressure 38, ____ 65%-70%. IMPRESSION: Normal left ventricular function, trace to mild mitral regurgitation, trace to mild tric uspid regurgitation, hypertension, hyperlipidemia, cystic and solid mass in both frontal lobes, brain tumor, lung mass, hypertension, hydrocephalus. RECOMMENDATION: The patient's cardiac status is stable. The patient is going to go for surgery next week. ____ pressure can bring the patient into bradycardia and ____ . Otherwise CVS status is stabl e. We will follow with you. If the patient needs surgery, the patient is cleared from cardiac point of view to go for surgery wit h moderate to high risk because of underlying condition, but no absolute contraindication. Thank you, Dr. Darby, for providing the opportunity in taking care of this patient. Chica Simon MD cc:Yaneth Darby MD [id number] TT: 02/05/2017 13:21:39 Confirmation # [id number] Dictation # [id number] rn 02/05/2017 14:47:27
--- NOTE | 2017-02-05 22:03 | PN ---
DATE: 02/05/2017 REFERRING PHYSICIAN: Dr. Darby SUBJECTIVE: She is lying in the bed, head at 45 degree. Night was unremarkable. No headache, no rh initis, no nausea, no vomiting, diarrhea. No leg pain or leg swelling. OBJECTIVE: GENERAL: No acute distress. VITAL SIGNS: Temp is 98, heart rate 64, respiratory rate is 20, blood pressure 107/61, pulse ox 100% on room air. HEENT: Moist mucous membranes. Crowded airway. Mallampati score is 4. NECK: Supple. No JVD. LUNGS: Has a fair airflow with few rhonchi. HEART: S1 and S2. ABDOMEN: Soft, nontender. No organomegaly. EXTREMITIES: There is no edema. NEUROLOGIC: Awake, alert, follows simple command. MEDICATIONS: She is on Decadron 4 mg q.8 hours, DuoNeb q.6 hours, Keppra 500 mg twice a day, Tylenol p.r.n. basis, Zestril 20 mg daily. LABORATORY DATA: Reviewed. No new lab is available since yesterday. IMPRESSION AND PLAN: Probably metastatic disease, most likely primary lung, multiple brain lesions, hypertension, hyperlipidemia, chronic obstructive lung disease, active smoker. Has mild tonsillar he rniation. On steroid, inhaled bronchodilator. Keep head at 45 degrees. Pulmonary status stable. G astric prophylaxis. Sequential compression device to lower extremity. Schedule for craniotomy on . Thank you and we will follow with you. Chica Palmer MD cc: [id number] TT: 02/05/2017 22:02:57 Confirmation # [id number] Dictation # [id number] sn
--- NOTE | 2017-02-05 23:05 | PN ---
DATE: 02/05/2017 SUBJECTIVE: The patient was seen and examined on the bedside. Length of time in discussion done. T he patient is scheduled for a surgery on . Neurosurgeon have discussion done with patient's daughter at length of time, all question answered. The patient is going suboccipital right craniotom y excision of the tumor, but today patient looks comfortable. No nausea, vomiting, or diarrhea. No hematuria or hematochezia. No swelling of the leg. No chest pain, no palpitations. No headache, no dizziness. PHYSICAL EXAMINATION: VITAL SIGNS: The patient temperature 97.8, pulse 60, respiratory rate 18, blood pressure 115/67, and pulse oximetry 98. HEENT: Head normocephalic, atraumatic. Eyes: PERRLA. Extraocular muscles intact. Conjunctivae pi nk. Eyelids unremarkable. Nose patent. NECK: Supple. No carotid bruit, JVD or thyromegaly. CHEST: Bilaterally symmetrical. HEART: S1, S2 positive. LUNGS: Clear to auscultation. ABDOMEN: Soft. Bowel sounds present. No organomegaly. EXTREMITIES: No edema, no cyanosis. NEUROLOGIC: The patient is awake, alert, moving all 4 extremities. No focal deficits. MEDICATIONS: DuoNeb, Decadron, Keppra, Zestril. LABORATORY DATA: White blood cells 5.3, hemoglobin 16.7, hematocrit 46.3, platelets 214. Sodium 141 , potassium 4.3, BUN 13, creatinine 0.7. ASSESSMENT AND PLAN: The patient is a 61-year-old lady with hypercholesterolemia, hypertension, has memory problems, becoming more forgetful, having headache. CAT scan shows abnormal masses in the bra in. Went for MRI, it showed pretty marked complex cystic solid masses in different lobes and the rig ht cerebral hemisphere, consistent with metastatic disease, mild hydrocephalus and tonsillar herniati on. The patient is doing very well. The patient has lungs densities also in the left upper lung, hidalgo spicious of primary malignancy and small 7 mm nodule in the right upper lobe, posteriorly, continued neurosurgery is on board, possibly for decompression and suboccipital craniotomy for excision of the tumor and to prevent further hydrocephalus. According to neurologist, continue Decadron, Keppra. Th e patient has bradycardia, followed by the nut feeder. The patient did EEG, no evidence of epilept iform activity. Overall stable EEG as per Dr. Paz, was seen by Dr. Simon and Dr. Palmer also. Dis cussion done with the patient at length. All questions answered. We will follow up. Yaneth Darby MD cc: [id number] TT: 02/05/2017 23:04:51 Confirmation # [id number] Dictation # [id number] tn
[2017-02-06] MEDS: Albuterol-Ipratrop 3 mg / 0.5 (3 ml) UD IH SCH ×4 (01:14→20:21)
[2017-02-06] MEDS: Dexamethasone 4 mg/1 ml IVP SCH ×3 (05:15→21:33)
--- NOTE | 2017-02-06 11:16 | PN ---
DATE: 02/06/2017 The patient is in room 361, bed 1. REASON FOR CONSULTATION AND FOLLOWUP: Hypertension, hypercholesterolemia, brain mass, cardiac evalua tion for possible surgery. HISTORY OF PRESENT ILLNESS: The patient is a 61-year-old female with past medical history significan t for hypertension, hyperlipidemia. The patient had change in the mental status. CAT scan showed th e patient had a mass in the brain. The patient denies any chest pain, shortness of breath, or palpit ation. Since admission, the patient has improved as far as her mental status is concerned. PHYSICAL EXAMINATION: VITAL SIGNS: Blood pressure 134/77, respirations 19, pulse 50, temperature 97.8. HEAD: Normocephalic. EYES: Pupils normal. Conjunctivae normal. NOSE AND THROAT: Normal. NECK: JVP low. Carotid equal. THORAX: AP diameter normal. LUNGS: Clear. CARDIOVASCULAR: S1, S2. ABDOMEN: Soft, nontender, no organomegaly. Bowel sounds normal. EXTREMITIES: No edema, no tenderness. LABORATORY DATA: WBC 5.3, hemoglobin 16.7, hematocrit 46.3, platelet 214. Sodium 141, potassium 4.3 , BUN 13, creatinine 0.7, calcium 10.5. TSH is 0.22. DIAGNOSES: Brain tumor, hypertension and hyperlipidemia. PLAN: The echo showed normal LV function. Clinically, patient's cardiac status is stable. Bradycar jostin probably related to her intracranial pressure, but clinically, patient's cardiac status is stable and patient can go for surgery from cardiac point of view with moderate to high risk because of unde rlying condition, but there is no absolute contraindication to surgery from cardiac point of view. T he patient is getting Decadron 4 mg IV q. 8 hours, Keppra 500 mg b.i.d., Zestril 20 mg daily. We pavan l follow with you. Chica Fang MD cc: [id number] TT: 02/06/2017 11:16:16 Confirmation # [id number] Dictation # [id number] tn
--- NOTE | 2017-02-06 13:12 | CP.PCM.PN ---
Subjective - Date & Time of Evaluation Date of Evaluation: 02/06/17 Time of Evaluation: 11:00 - Subjective Subjective: Patient: LAKESHIA JAFFE Unit: [id number] : 1955 Loc: 3RNO Room/Bed: [facility] Age/Sex: 61 / F ADM Status: ADM IN ADM Date: DIS Date: Progress note: DATE: 02/06/2017 CHIEF COMPLAINT: Followup for multiple new masses in the brain. SUBJECTIVE: The patient is seen and examined at bedside, sitting at the bedside , sitting at the edge of the bed, in no acute distress. Has mild headache, otherwise no seizures. On Keppra for seizure prophylaxis. EEG showed mild diffuse slowing bilaterally, but no evidence of any epileptiform activity. There is a lot of EMG muscle artifact throughout the EEG. The MRI of the brain shows complex cystic and solid masses in both frontal lobes and right cerebellar hemisphere consistent with metastatic disease, mild hydrocephalus and tonsillar herniation. Neurosurgery is on board. CT scan of the chest showed 12 mm x 60 mm lung nodule in the left lung apex, suspicious for primary malignancy and 7 mm nodule in the right upper lobe posteriorly with multiple calcified mediastinal lymph nodes. The patient is already on Decadron for swelling. Patient scheduled for hopefully for neurosurgical procedure such as suboccipital craniectomy and decompression. PAST MEDICAL HISTORY: Hypercholesterolemia, hypertension. SOCIAL HISTORY: No illicit drug use or ETOH abuse, but is a daily smoker. FAMILY HISTORY: Noncontributory. MEDICATIONS: Reviewed via nurse's reconciliation sheet. ALLERGIES: No known drug allergies. REVIEW OF SYSTEMS: A 14-point review of systems is negative except for the HPI. PHYSICAL EXAMINATION: VITAL SIGNS: Reviewed. GENERAL: The patient is sitting up in bed in no acute distress. HEENT: Atraumatic, normocephalic. PERRLA. Extraocular muscles intact. NECK: Supple, no JVD, no adenopathy noted. LUNGS: Clear to auscultation. No adventitious sounds. HEART: S1, S2. Normal rate and rhythm. No murmurs, rubs, or gallops. ABDOMEN: Soft, nontender, nondistended. Bowel sounds are present. EXTREMITIES: No clubbing, no cyanosis. Peripheral pulses 2+ felt bilaterally. NEUROLOGIC: The patient is alert, oriented to person, place, month and year. Speech is fluent, without any errors. Cranial nerves II through XII are intact. MOTOR: Moves all extremities equally. Tone is normal. Strength is 5/5 in both upper and lower extremities. Toes are downgoing bilaterally. SENSORY: Light touch, pinprick, proprioception, vibration intact. DEEP TENDON REFLEXES: 2+ throughout. COORDINATION: [id number] intact, but slightly dysmetric on the right when compared to left. LABORATORY DATA: Reviewed and stable. ASSESSMENT AND PLAN: This is a 61-year-old -[place] woman with history of hypertension, history of hyperlipidemia who presented to the hospital because it was noticed that the patient's memory was changing, was becoming more forgetful and was having headaches over the past couple of weeks. Had a CAT scan which was abnormal for masses in the brain and underwent an MRI of the brain which showed pretty much complex cystic solid masses in frontal lobes and right cerebellar hemisphere consistent with metastatic disease with mild hydrocephalus and tonsillar herniation. Though symptomatic, the patient is doing well. The CAT scan also of the chest showing 12 mm x 60 mm lung nodule in the left lung apex suspicious for primary malignancy and a small 7 mm nodule in the right upper lobe posteriorly. Currently, neurosurgery is on board for possible decompression and suboccipital craniectomy for excision of the tumor and to prevent further hydrocephalus. EEG showed no evidence of any epileptiform activity At this time, recommend: 1. Continue with Decadron 4 mg IV q. 8 hours to decrease swelling. 2. Prophylactic seizures, therapy with Keppra 500 mg p.o. b.i.d. 3. Keep the head of the bed elevated at a 30 degree angle and avoid sedative medications if possible and continue current present medical management.Follow with neurosurgery for further management. Once again, that you for this followup. Victorino Paz MD Objective - Vital Signs/Intake and Output Vital Signs (last 24 hours): Temp Pulse Resp BP Pulse Ox 97.8 F 50 L 19 134/77 96 02/06/17 07:47 02/06/17 07:47 02/06/17 07:47 02/06/17 09:25 02/06/17 07:47 Intake and Output: 02/06/17 02/06/17 06:59 18:59 Intake Total 720 Balance 720 - Medications Medications: Current Medications Acetaminophen (Tylenol 325mg Tab) 650 mg PO Q4H PRN PRN Reason: Headache Albuterol/Ipratropium (Duoneb 3 Mg/0.5 Mg (3 Ml) Ud) 3 ml IH Q5UADDS [facility] Last Admin: 02/06/17 08:12 Dose: 3 ml Dexamethasone (Decadron Inj) 4 mg IVP Q8 [facility] Last Admin: 02/06/17 05:15 Dose: 4 mg Levetiracetam (Keppra) 500 mg PO BID [facility] Last Admin: 02/06/17 09:25 Dose: 500 mg Lisinopril (Zestril) 20 mg PO DAILY [facility] Last Admin: 02/06/17 09:25 Dose: 20 mg - Labs Labs: 02/03/17 07:40 02/03/17 07:40 PT 11.0 Seconds (9.9-11.8) 02/02/17 16:00 INR 1.02 (0.93-1.08) 02/02/17 16:00 APTT 31.3 Seconds (23.7-30.8) H 02/02/17 16:00
--- NOTE | 2017-02-06 13:52 | PN ---
DATE: 02/06/2017 REFERRING PHYSICIAN: Dr. Darby. SUBJECTIVE: The patient is lying in the bed. Night was unremarkable. Feels okay. No headache, no rhinitis, no nausea, no vomiting, diarrhea. No leg pain or leg swelling. OBJECTIVE: GENERAL: No acute distress. VITAL SIGNS: Temp is 98, heart rate is 50, respiratory rate is 20, blood pressure 134/77, pulse ox 9 6% on room air. HEENT: Moist mucous membrane. No ulcer or thrush noted. NECK: Supple. No JVD. LUNGS: Have fair airflow with a few rhonchi. HEART: S1, S2. ABDOMEN: Soft, nontender. No organomegaly. EXTREMITIES: There is no edema. NEUROLOGIC: Awake, alert, follows simple command. MEDICATIONS: She is on Decadron 4 mg IV q. 8 hours, DuoNeb q. 6 hours, Keppra 500 mg twice a day, Ty lenol p.r.n. basis, Zestril 20 mg daily. LABORATOR DATA: Reviewed and noted. No new changes in medication reported since yesterday. IMPRESSION AND PLAN: Probably metastatic disease. Primary could be in lungs because of bilateral pu lmonary nodules, multiple brain lesions with mild tonsillar herniation, hypertension, hyperlipidemia, chronic obstructive lung disease, active smoker. Pulmonary point of view, she is doing well. Ramon nue bronchodilator. On high dose steroids, antihypertensive medication. Gastric prophylaxis. Seque ntial compression device to lower extremities. We will follow with you. Chica Palmer MD cc: [id number] TT: 02/06/2017 13:52:26 Confirmation # [id number] Dictation # [id number] tn
--- NOTE | 2017-02-06 20:28 | PN ---
DATE: 02/06/2017 SUBJECTIVE: The patient was seen and examined on the bedside, looks comfortable. No nausea, vomitin g, or diarrhea. No hematuria or hematochezia. No swelling of the leg. No chest pain, no palpitatio n, no headache, no fever. Does not look toxic. PHYSICAL EXAMINATION: VITAL SIGNS: Temperature 98.2, heart rate 50, respiratory rate 22, blood pressure 134/77, pulse oxim etry 96% on room air. HEENT: Head normocephalic, atraumatic. Eyes: PERRLA. Extraocular muscles intact. Conjunctivae pin k. Eyelids unremarkable. Nose patent. Mucous membranes moist. NECK: Supple. No carotid bruit, JVD or thyromegaly. CHEST: Bilaterally symmetrical. HEART: S1, S2 positive. ABDOMEN: Soft, nontender. No organomegaly. EXTREMITIES: No edema, no cyanosis. NEUROLOGIC: The patient is awake, alert, follows simple commands. MEDICATIONS: Decadron, DuoNeb, Keppra, Tylenol, and Zestril. LABORATORY DATA: We reviewed old labs. We do not have new labs today. ASSESSMENT AND PLAN: The patient is a 61-year-old patient with metastatic disease. Primary could be lung because of bilateral pulmonary nodules and multiple brain lesions with mild tonsillar herniation , a history of heavy smoking all of her life, hypertension, hypercholesterolemia, chronic obstructive lung disease, active smoker. Continue bronchodilators, on high dose of steroids, antihypertensive m edication, gastric prophylaxis, sequential compression devices to lower extremities. The patient is going for surgery tomorrow by Dr. Ward. I reviewed Dr. Palmer's notes. I reviewed Dr. Paz's n otes and Dr. Fang's notes. The patient is a moderate risk for surgery. She is cleared with modera te risk. Will follow up. Yaneth Darby MD cc: [id number] TT: 02/06/2017 20:28:18 Confirmation # [id number] Dictation # [id number]
[2017-02-07] MEDS ORDERED: Dextrose 5%/0.9% NS 1,000 ML IV SCH (00:01)
[2017-02-07] MEDS: Albuterol-Ipratrop 3 mg / 0.5 (3 ml) UD IH SCH ×4 (01:54→19:44)
[2017-02-07 03:13] LABS: PH,URINE 6.5 (4.7-8.0); URINE BILIRUBIN NEGATIVE (NEGATIVE); URINE BLOOD NEGATIVE (NEGATIVE); URINE GLUCOSE (UA) NEGATIVE (NEGATIVE); URINE KETONE NEGATIVE (NEGATIVE); URINE LEUKOCYTE ESTERASE NEGATIVE Leu/uL (NEGATIVE); URINE PROTEIN NEGATIVE mg/dL (<30 mg/dL); URINE UROBILINOGEN 0.2 E.U./dL (<1 E.U./dL)
[2017-02-07 03:14] LABS: URINE APPEARANCE CLEAR (CLEAR); URINE COLOR YELLOW (YELLOW)
[2017-02-07] MEDS: Dexamethasone 4 mg/1 ml IVP SCH ×3 (06:05→21:29)
[2017-02-07] MEDS ORDERED: Bacitracin Ointment 30 GM TUBE ONE (07:29)
[2017-02-07] MEDS ORDERED: Lidocaine 1%/Epinephrine 1:100000 30 ml vial ONE (07:30)
[2017-02-07] MEDS ORDERED: Liquid Adhesive TOP ONE ×2 (07:30→10:03)
[2017-02-07] MEDS ORDERED: Absorbable Gelatin Sponge Size 100 ONE (07:30)
[2017-02-07] MEDS ORDERED: Midazolam 2 MG/2 ML VIAL ONE (07:32)
[2017-02-07] MEDS ORDERED: Propofol 10 mg/ml Inj (20 ML) ONE ×4 (07:32→09:41)
[2017-02-07] MEDS ORDERED: Rocuronium 10 mg/ml (5 ml) ONE ×2 (07:33→09:17)
[2017-02-07] MEDS ORDERED: Remifentanil 2 MG PDS IV ONE (08:14)
[2017-02-07] MEDS ORDERED: Mannitol 12.5 gm/50 ml Inj IV ONE (08:30)
[2017-02-07] MEDS ORDERED: cefTRIAXone (Rocephin) 1 gm Inj ONE (08:32)
[2017-02-07] MEDS ORDERED: Thrombin Topical 20,000 Intl Units Spray Kit TOP ONE (09:27)
[2017-02-07] MEDS ORDERED: Phenylephrine 10 mg/ml Inj ONE ×2 (09:31→09:33)
[2017-02-07] MEDS ORDERED: Neostigmine Methylsulfate 3mg/3ml Syringe IV ONE (09:48)
[2017-02-07] MEDS ORDERED: Glycopyrrolate 0.2 mg/ml (2ml vial) ONE (09:48)
[2017-02-07] MEDS ORDERED: Morphine 2 mg/ml ISec IVP PRN (10:19)
[2017-02-07] MEDS ORDERED: Naloxone 0.4 mg/ml Inj (Adult) ONE (10:29)
[2017-02-07] MEDS ORDERED: Labetalol 5 mg/ml Inj 20ML ONE (11:06)
--- NOTE | 2017-02-07 11:18 | PN ---
DATE: 02/07/2017 The patient is in room 361, bed 1. REASON FOR CONSULTATION AND FOLLOWUP: Hypertension, hypercholesterolemia, brain mass. HISTORY OF PRESENT ILLNESS: The patient is a 61-year-old female with past medical history significan t for hypertension, hyperlipidemia. The patient had change in mental status and CT scan showed patie nt had a mass in the brain. The patient has been on Decadron and she feels better now. The patient denies any chest pain, shortness of breath, palpitation. The patient's mental status improved since admission. The patient does not have any cardiac symptoms at present. PHYSICAL EXAMINATION: VITAL SIGNS: Blood pressure 149/77, respirations 18, pulse 63, temperature 97.3. HEAD: Normocephalic. EYES: Pupils normal. Conjunctivae normal. NOSE AND THROAT: Normal. NECK: JVP low. Carotid equal. THORAX: AP diameter normal. LUNGS: Clear. CARDIOVASCULAR: S1, S2. ABDOMEN: Soft, nontender, no organomegaly. EXTREMITIES: No clubbing, no cyanosis. LABORATORY DATA: Reported in all previous progress notes. Labs were done on 02/03. DIAGNOSES: Benign tumor, hypertension, hyperlipidemia and sinus bradycardia. Clinically, patient's c ardiac status is stable on echo, LV function is normal, bradycardia, probably related to pressu re. Clinically, cardiac status is stable. The patient can go for surgery, from cardiac point of vie w. Moderate to high risk, but there is no absolute contraindication from cardiac point of view for s aki. Patient on Decadron 4 mg IV q. 8 hours, IV fluid, DuoNeb hand nebulizer therapy, Keppra 500 b.i.d. The patient is going to receive mannitol 25% 25 g IV once today, Zestril 20 mg p.o. daily. W e will continue to follow closely with you. Chica Fang MD cc: [id number] TT: 02/07/2017 10:18:55 Confirmation # [id number] Dictation # [id number] 02/07/2017 10:16:13
[2017-02-07] MEDS ORDERED: HYDROmorphone 0.5 mg/0.5 ml ISec IVP PRN (11:23)
[2017-02-07] MEDS ORDERED: Labetalol 5 mg/ml Inj 20ML IVP PRN (11:23)
[2017-02-07] MEDS ORDERED: Lactated Ringer's 1,000 ML IV SCH (11:45)
[2017-02-07] MEDS ORDERED: HYDROmorphone 0.5 mg/0.5 ml ISec ONE (11:46)
--- NOTE | 2017-02-07 12:06 | PN ---
DATE: 02/07/2017 ADDENDUM REASON FOR ADDENDUM: The patient seen in PACU area, status post surgery for cerebellar tumor, status post craniotomy and removal of tumor from suboccipital lobe. The patient is in recovery area, awake and alert. Blood pressure 180/100. Discussed with the nursing staff. Discussed with the nurse barron ing care, it was suggested by neurologist to keep the blood pressure 140 post ____. RECOMMENDATION: We will give 10 mg of hydralazine now and we will put p.r.n. 10 mg q. 6 p.r.n. for s ystolic more than 150 and diastolic more than 90. We will follow with you. Thank you, Dr. Darby, for providing us the opportunity in taking care of the patient. We will repea t the blood workup in the morning. Chica Simon MD cc: [id number] TT: 02/07/2017 11:59:57 Confirmation # [id number] Dictation # [id number] 02/07/2017 11:05:17
[2017-02-07] MEDS ORDERED: Nicardipine 20 MG/200 ML 200 ML IV PRN ×2 (12:49→12:50)
--- NOTE | 2017-02-07 13:07 | CP.PCM.CON ---
<Cari Mendoza - Last Filed: 02/07/17 12:53> History of Present Illness - History of Present Illness History of Present Illness: ICU consult 61 F w PMH of HLD and HTN was sent by her coworker to her PMD for forgetfulness and memory loss last couple of months. Pt also reports VALENCIA/N/V/LE weakness started about a week ago. Pt deneis syncopy, LOC, seizure, CP, SOB, D, imbalance , hemoptesis,hematochezia, hematemesis . Pt had CT of the head that showed large frontal and oxipital masses. Pt was admitted on 02/02. MRI of the head showed b/l frontal and cerebella complex masses with mild hydrocephalus and 5mm tonsilar herniation. CT of the chest shows b/l lung nodes suspicious for primary metastatic cancer. Pt underwent occipital craniectomy and drainage and excision of the cerebellar mass. Pt was given Manitol. Pt tolerated the procedure well. Pt is evaluted with ICU attending. SS: smoker, drinks occasionally. PMD: Mehnaz Neuro surg: Mark Neuro: Esdras Cardio: Alfred Review of Systems - Review of Systems Review of Systems: See HPI - Constitutional Constitutional: Weakness. absent: Anorexia, Chills, Weight Gain, Weight Loss - EENT Eyes: absent: Blind Spots, Blurred Vision - Respiratory Respiratory: absent: Cough, Dyspnea, Hemoptysis, Dyspnea on Exertion, Wheezing Past Patient History - Infectious Disease Hx of Infectious Diseases: None - Past Social History Smoking Status: Current Some Days Smoker - CARDIAC Hx Cardiac Disorders: Yes Hx Hypertension: Yes - PULMONARY Hx Respiratory Disorders: Yes (SMOKES 4 CIG A WEEK.) - NEUROLOGICAL Hx Neurological Disorder: No - HEENT Hx HEENT Problems: No - RENAL Hx Chronic Kidney Disease: No - ENDOCRINE/METABOLIC Hx Endocrine Disorders: No - HEMATOLOGICAL/ONCOLOGICAL Hx Blood Transfusions: Yes Hx Blood Transfusion Reaction: No - INTEGUMENTARY Hx Dermatological Problems: No - MUSCULOSKELETAL/RHEUMATOLOGICAL Hx Musculoskeletal Disorders: Yes Hx Falls: No Hx Osteoporosis: Yes - GASTROINTESTINAL Hx Gastrointestinal Disorders: No - GENITOURINARY/GYNECOLOGICAL Hx Genitourinary Disorders: Yes (HYSTERECTOMY) - PSYCHIATRIC Hx Psychophysiologic Disorder: No Hx Depression: No Hx Emotional Abuse: No Hx Physical Abuse: No Hx Substance Use: No - SURGICAL HISTORY Hx Surgeries: Yes - ANESTHESIA Hx Anesthesia Reactions: No Hx Malignant Hyperthermia: No Meds Allergies/Adverse Reactions: Allergies Allergy/AdvReac Type Severity Reaction Status Date / Time No Known Allergies Allergy Verified 02/07/17 13:39 - Medications Medications: Current Medications Acetaminophen (Tylenol 325mg Tab) 650 mg PO Q4H PRN PRN Reason: Headache Albuterol/Ipratropium (Duoneb 3 Mg/0.5 Mg (3 Ml) Ud) 3 ml IH [id number] [facility] Last Admin: 02/07/17 08:01 Dose: Not Given Dexamethasone (Decadron Inj) 4 mg IVP Q8 [facility] Last Admin: 02/07/17 06:05 Dose: 4 mg Hydralazine HCl (Apresoline) 10 mg PO QID PRN PRN Reason: FOR SBOP>150 and diastolic>90 Hydromorphone HCl (Dilaudid) 0.5 mg IVP Q15M PRN PRN Reason: Pain, moderate (4-7) Stop: 02/07/17 13:24 Last Admin: 02/07/17 11:45 Dose: 0.5 mg Dextrose/Sodium Chloride (Dextrose 5%/0.9% Ns 1000 Ml) 1,000 mls @ 40 mls/hr IV .Q24H [facility] Last Admin: 02/07/17 00:23 Dose: 40 mls/hr Pantoprazole Sodium (Protonix 40mg Ivpb) 100 mls @ 200 mls/hr IVPB 0600 [facility] Lactated Ringer's (Lactated Ringer's) 1,000 mls @ 75 mls/hr IV .[id number] [facility] Stop: 02/07/17 13:46 Nicardipine HCl (Cardene Iv Premix) 200 mls @ 50 mls/hr IV .Q4H PRN; Protocol; 5 MG/HR PRN Reason: TITRATE PER MD ORDER Labetalol HCl (Trandate) 10 mg IVP ONCE PRN PRN Reason: Systolic Blood Pressure Stop: 02/07/17 13:23 Last Admin: 02/07/17 11:05 Dose: 10 mg Levetiracetam (Keppra) 500 mg PO BID [facility] Last Admin: 02/06/17 17:55 Dose: 500 mg Lisinopril (Zestril) 20 mg PO DAILY [facility] Last Admin: 02/06/17 09:25 Dose: 20 mg Morphine Sulfate (Morphine) 2 mg IVP Q4H PRN PRN Reason: Pain, moderate (4-7) Physical Exam - Constitutional Appears: Non-toxic, No Acute Distress - Head Exam Additional comments: Dressing on oxccipital area C/D/I lower part of Head shaved. - Eye Exam Eye Exam: EOMI, Normal appearance, PERRL Pupil Exam: NORMAL ACCOMODATION - ENT Exam ENT Exam: Mucous Membranes Moist, Normal Exam - Neck Exam Neck exam: Positive for: Normal Inspection. Negative for: Lymphadenopathy - Respiratory Exam Respiratory Exam: Clear to Auscultation Bilateral, NORMAL BREATHING PATTERN - Cardiovascular Exam Cardiovascular Exam: REGULAR RHYTHM, +S1, +S2 - GI/Abdominal Exam GI & Abdominal Exam: Normal Bowel Sounds, Soft. absent: Distended, Firm, Guarding, Hernia, Tenderness - Extremities Exam Extremities exam: Positive for: normal inspection - Back Exam Back exam: NORMAL INSPECTION - Neurological Exam Neurological exam: Alert, CN II-XII Intact, Oriented x3, Reflexes Normal - Psychiatric Exam Psychiatric exam: Normal Affect, Normal Mood - Skin Skin Exam: Dry, Intact, Normal Color, Warm Results - Vital Signs Recent Vital Signs: Last Vital Signs Temp 97.4 F L 02/07/17 12:26 Pulse 60 02/07/17 12:26 Resp 14 02/07/17 12:26 BP 153/81 H 02/07/17 12:26 Pulse Ox 100 02/07/17 12:26 - Labs Result Diagrams: 02/03/17 07:40 02/03/17 07:40 Labs: Laboratory Results - last 24 hr 02/06/17 02/07/17 08:35 02:47 Urine Color Yellow Urine Appearance Clear Urine pH 6.5 Ur Specific [place] 1.010 Urine Protein Negative Urine Glucose (UA) Negative Urine Ketones Negative Urine Blood Negative Urine Nitrate Negative Urine Bilirubin Negative Urine Urobilinogen 0.2 Ur Leukocyte Esterase Negative Blood Type B POSITIVE Antibody Screen Negative BBK History Checked No verified bt Assessment & Plan - Assessment and Plan (Free Text) Assessment: 61 w PMH of HTN POD 0 s/p occipital craniectomy excision of cerebellar mass CT: chest : b/l upper lobe nodules suspicious for primary metastatic cancer Neuro: AA0 x3 -Seizure precaution: Keppra -Decadrone for swelling -EEG: no seizure activity -Neurocheck PRN -neuro following -Neurosurgery following -Monitor wound for bleeding -Pain control: Morphine CV: h/o HTN -Hydralazine PO PRN -Jolanta drip -Keep systolic BP around 140 per neurosurgery -Lisinopril -IVF Pulm: CT: chest : b/l upper lobe nodules suspicious for primary metastatic cancer -Duoneb PRN -Keep sat above 90% -NC O2 PRN GI: HHD -ppx: protonix Renal -Keep euvolemia -I & O Endo -Keep euglycemia ID -Keep normothermia -Tylenol PRN DVT ppx: SCD Dispo: Monitor in ICU overnight ICU attending <Donnell Trimble - Last Filed: 02/07/17 13:53> Meds - Medications Medications: Current Medications Acetaminophen (Tylenol 325mg Tab) 650 mg PO Q4H PRN PRN Reason: Headache Albuterol/Ipratropium (Duoneb 3 Mg/0.5 Mg (3 Ml) Ud) 3 ml IH [id number] [facility] Last Admin: 02/07/17 08:01 Dose: Not Given Dexamethasone (Decadron Inj) 4 mg IVP Q8 [facility] Last Admin: 02/07/17 06:05 Dose: 4 mg Hydralazine HCl (Apresoline) 10 mg PO QID PRN PRN Reason: FOR SBOP>150 and diastolic>90 Dextrose/Sodium Chloride (Dextrose 5%/0.9% Ns 1000 Ml) 1,000 mls @ 40 mls/hr IV .Q24H [facility] Last Admin: 02/07/17 00:23 Dose: 40 mls/hr Pantoprazole Sodium (Protonix 40mg Ivpb) 100 mls @ 200 mls/hr IVPB 0600 [facility] Nicardipine HCl (Cardene Iv Premix) 200 mls @ 50 mls/hr IV .Q4H PRN; Protocol; 5 MG/HR PRN Reason: TITRATE PER MD ORDER Levetiracetam (Keppra) 500 mg PO BID [facility] Last Admin: 02/06/17 17:55 Dose: 500 mg Lisinopril (Zestril) 20 mg PO DAILY [facility] Last Admin: 02/06/17 09:25 Dose: 20 mg Morphine Sulfate (Morphine) 2 mg IVP Q4H PRN PRN Reason: Pain, moderate (4-7) Results - Vital Signs Recent Vital Signs: Last Vital Signs Temp 97.4 F L 02/07/17 12:26 Pulse 60 02/07/17 12:26 Resp 14 02/07/17 12:26 BP 153/81 H 02/07/17 12:26 Pulse Ox 100 02/07/17 12:26 - Labs Result Diagrams: 02/03/17 07:40 02/03/17 07:40 Labs: Laboratory Results - last 24 hr 02/06/17 02/07/17 08:35 02:47 Urine Color Yellow Urine Appearance Clear Urine pH 6.5 Ur Specific [place] 1.010 Urine Protein Negative Urine Glucose (UA) Negative Urine Ketones Negative Urine Blood Negative Urine Nitrate Negative Urine Bilirubin Negative Urine Urobilinogen 0.2 Ur Leukocyte Esterase Negative Blood Type B POSITIVE Antibody Screen Negative BBK History Checked No verified bt Attending/Attestation - Attestation I have personally seen and examined this patient.: Yes I have fully participated in the care of the patient.: Yes I have reviewed all pertinent clinical information: Yes Notes (Text): 02/07/17 13:50 The patient was seen and examined at the bedside. Patient care was discussed with resident Medical records, lab studies, and imaging were reviewed and management issues were discussed and formulated. Agree with above treatment plans as outlined in 's note with addition of the following: -hemodynamic monitoring to maintain MAP>65; currently stable -start nicardipine drip to maintain SBP 140 as per neurosurgical team recommendations -o2 supplementation to maintain Spo2>90 Pao2>60; currently comfortable on NC -neurosurgical team f\u, repeat imaging as per -neurology team f\u -continue neuro checks -antiseizure meds and precautions -f\u Bun\Cr and U\o -PO diet and aspiration precautions -f\u repeat labs -DVT prophylaxis CCM eval 40min
[2017-02-07 17:01] LABS: ADD MANUAL DIFF? NO
[2017-02-07 17:08] LABS: BASO # 0.01 K/mm3 (0.0-2.0); BASO % 0.1 % (0.0-3.0); GRAN # 10.23 (1.4-6.5); HEMATOCRIT 42.6 % (36.0-48.0); LYMPH # 0.6 (1.2-3.4); LYMPH % 5.1 % (22.0-35.0); MEAN CELL VOLUME 90.6 fL (80.0-105.0); MEAN CORPUSCULAR HEMOGLOBIN 32.1 pg (25.0-35.0); MEAN CORPUSCULAR HGB CONC 35.4 g/dl (31.0-37.0); MEAN PLATELET VOLUME 10.2 fl (7.0-11.0); MONO # 0.6 (0.1-0.6); MONO % 4.8 % (1.0-6.0); PLATELET COUNT 203 10^3/uL (120.0-450.0); RED CELL DISTRIBUTION WIDTH 12.8 % (11.5-14.5); WHITE BLOOD COUNT 11.4 10^3/ul (4.5-11.0)
[2017-02-07 17:21] LABS: ALB/GLOB RATIO 1.1 (1.1-1.8); ALKALINE PHOSPHATASE 76 U/L (38-133); ALT/SGPT 20 U/L (7-56); AST/SGOT 21 U/L (15-39); BILIRUBIN,TOTAL 0.4 mg/dL (0.2-1.3); BLOOD UREA NITROGEN 10 mg/dL (7-21); CALCIUM 9.7 mg/dL (8.4-10.5); CARBON DIOXIDE 23 mmol/L (21-33); CHLORIDE 102 mmol/L (98-107); GFR AFRICAN-AMERICAN > 60; GLUCOSE,RANDOM 145 mg/dL (70-110); POTASSIUM 4.3 mmol/L (3.6-5.0); SODIUM 138 mmol/L (132-148)
--- NOTE | 2017-02-07 22:27 | PN ---
DATE: 02/07/2017 REFERRING PHYSICIAN: Dr. Darby. SUBJECTIVE: She is lying in the bed, head at 45 degree. 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 She is awake, alert. No cough, no sputum production, no nausea, vomiting, diarrhea. No leg pain or leg swelling. OBJECTIVE: GENERAL: No acute distress. VITAL SIGNS: Temperature is 98, heart rate is 79, respiratory rate is 12, blood pressure 114/58, pul se ox 100% on nasal cannula. HEENT: Moist mucous membrane. Crowded airway. NECK: Supple, no JVD. Has a dressing on the wound. LUNGS: Has a fair airflow with few rhonchi. HEART: S1, S2. ABDOMEN: Soft, nontender. No organomegaly. EXTREMITIES: There is no edema. NEUROLOGIC: Awake, alert, follows simple command. MEDICATIONS: She is on hydralazine 10 mg q.i.d. p.r.n., p.r.n. basis, Decadron 4 mg q. 8 hours , DuoNeb q. 6 hours, Keppra 500 mg twice a day, morphine 2 mg q. 4 hours p.r.n., Protonix 40 mg daily , Reglan 5 mg q. 6 hours p.r.n. for nausea, Tylenol p.r.n., Zestril 20 mg daily, Zofran on a p.r.n. b asis. LABORATORY DATA: Shows hemoglobin 15.1, hematocrit 42.6, WBC 11.4, platelet is 203. Sodium 138, pot assium 4.3, chloride 102, bicarbonate 23, BUN 10, creatinine 0.6, glucose 145. AST 21, ALT 20, alkal ine phosphatase is 76, albumin is 3.7. IMPRESSION AND PLAN: Probably have metastatic disease, most likely the lungs, has bilateral upper lo be lung nodule, brain lesion with mild tonsillar herniation ended up with craniotomy, resection of th e tumor, hypertension, hyperlipidemia, chronic obstructive lung disease, active smoker. I spoke to dino hazel staff keep head elevated at 45 degrees. Bronchodilator, keep incentive spirometer, on IV Deca dron. Gastric prophylaxis. SCD to lower extremity. Followup labs in the morning. We will suggest dysphagia evaluation tomorrow and we will follow with you. Chica Palmer MD cc: [id number] TT: 02/07/2017 22:26:38 Confirmation # [id number] Dictation # [id number] in
--- NOTE | 2017-02-08 00:52 | PN ---
DATE: 02/07/2017 SUBJECTIVE: The patient was seen and examined in the unit, was complaining about pain, especially lebron ving nausea and vomiting. Even she got Zofran, status post craniotomy and resection of the cystic tu mor, mass in the cerebellum area. The patient is awake, and alert, no shortness of breath. No fever , no chills. PHYSICAL EXAMINATION: VITAL SIGNS: Temperature 98, heart rate 79, respiratory rate 20, blood pressure 114/58, and pulse ox imetry 100% on room air with nasal cannula. HEAD: Normocephalic, atraumatic. EYES: PERRLA. Extraocular muscles are intact. Conjunctivae are clear. Eyelids unremarkable. Nose patent. NECK: Supple. No carotid bruit, JVD or thyromegaly. At the back of the neck and part of the head h as dressing and it is tender. CHEST: Bilaterally symmetrical. HEART: S1, S2 positive. LUNGS: Clear to auscultation. ABDOMEN: Soft. Bowel sounds present. No organomegaly. EXTREMITIES: No edema, no cyanosis. NEUROLOGIC: The patient is awake, alert, follows simple commands. MEDICATIONS: Hydralazine, Decadron, DuoNeb, Keppra, morphine, Protonix, Reglan, Tylenol, Zestril, Zo yung. LABORATORY DATA: Hemoglobin of 15.1, hematocrit 42.6 and white blood cell 11.6, platelets 203. Sodi um 138, potassium 4.3, AST 21, ALT 20, alkaline phosphatase 76. ASSESSMENT AND PLAN: The patient is a 61-year-old lady looks like having metastatic disease, looks like primary in the lungs, has bilateral upper lobes of the lungs has nodules, brain lesion with mild tonsillar herniation, ended up in the craniotomy, mild hydrocephalus, resection of the tumor, hypert ension, hypercholesterolemia, coronary artery disease, active smoker, was nauseous and vomiting, Zofr an was given, bronchodilator, keep inhaled spirometry, on IV Decadron. Gastric prophylaxis and SCDs to the lower extremities. Follow up labs in the morning. Dr. Palmer suggested dysphagia evaluation in the morning. We will follow up according to them. Appreciated Dr. Palmer's input, appreciated Dr Quinton Ward's help for the patient. We will follow up. Yaneth Darby MD cc: [id number] TT: 02/08/2017 00:51:47 Confirmation # [id number] Dictation # [id number] tn
[2017-02-08] MEDS: Albuterol-Ipratrop 3 mg / 0.5 (3 ml) UD IH SCH ×4 (01:38→21:04)
[2017-02-08 05:28] LABS: ADD MANUAL DIFF? NO
[2017-02-08 05:30] LABS: BASO # 0.01 K/mm3 (0.0-2.0); BASO % 0.1 % (0.0-3.0); GRAN # 9.64 (1.4-6.5); GRAN % 90.7 % (50.0-68.0); HEMATOCRIT 44.2 % (36.0-48.0); LYMPH # 0.7 (1.2-3.4); LYMPH % 6.7 % (22.0-35.0); MEAN CORPUSCULAR HEMOGLOBIN 31.8 pg (25.0-35.0); MEAN CORPUSCULAR HGB CONC 35.3 g/dl (31.0-37.0); MEAN PLATELET VOLUME 10.2 fl (7.0-11.0); MONO # 0.3 (0.1-0.6); MONO % 2.5 % (1.0-6.0); PLATELET COUNT 210 10^3/uL (120.0-450.0); RED CELL DISTRIBUTION WIDTH 12.8 % (11.5-14.5); WHITE BLOOD COUNT 10.6 10^3/ul (4.5-11.0)
[2017-02-08] MEDS: Dexamethasone 4 mg/1 ml IVP SCH ×3 (05:36→22:35)
[2017-02-08 05:51] LABS: ALB/GLOB RATIO 1.1 (1.1-1.8); ALKALINE PHOSPHATASE 74 U/L (38-133); ALT/SGPT 20 U/L (7-56); AST/SGOT 22 U/L (15-39); BILIRUBIN,TOTAL 0.4 mg/dL (0.2-1.3); BLOOD UREA NITROGEN 11 mg/dL (7-21); CALCIUM 9.7 mg/dL (8.4-10.5); CARBON DIOXIDE 24 mmol/L (21-33); CHLORIDE 101 mmol/L (95-110); GFR AFRICAN-AMERICAN > 60; GLUCOSE,RANDOM 133 mg/dL (70-110); POTASSIUM 4.4 mmol/L (3.6-5.0); SODIUM 137 mmol/L (132-148); TOTAL PROTEIN 7.1 g/dL (5.8-8.3)
[2017-02-08] MEDS: Pantoprazole 40mg/100ml IVPB 100 ML IVPB SCH (06:00)
--- NOTE | 2017-02-08 09:27 | PN ---
DATE: 02/08/2017 REASON FOR CONSULTATION AND FOLLOWUP: Status post craniotomy and removal of tumor from occipital lob e, cerebellar tumor. Postop, patient hypertensive, postop followup. BRIEF CLINICAL HISTORY: This is a 61-year-old female with a past medical history significant for hyp ertension, hyperlipidemia, getting headache. CAT scan shows mass in the brain. Yesterday, patient u nderwent craniotomy and removal of the tumor mass. Postop, patient was seen yesterday in PACU. Bloo d pressure was elevated, hypertensive response, 180/100, started on hydralazine. Now patient is on n icardipine in ICU, lying flat. Denies any chest pain, shortness of breath, any palpitation. PHYSICAL EXAMINATION: VITAL SIGNS: Temperature is 100.1, heart rate 72, blood pressure 129/79. HEENT: PERRLA. Extraocular muscles intact. NECK: Supple. No carotid bruits. No thyromegaly. CHEST: Clear to auscultation. HEART: S1, S2 regular. ABDOMEN: Soft. EXTREMITIES: Clubbing, cyanosis negative. WBC 10.6, hemoglobin 15.6, hematocrit 44.2, platelet count 210. Chemistry shows sodium 137, potassiu m 4.4, chloride of 101, carbon dioxide 24, anion gap of 16, BUN 11, creatinine 0.6. IMPRESSION: Tumor mass, status post removal of cerebellar tumor from occipital lobe, postop hyperten tamika response, hypertension, hyperlipidemia. The patient had echocardiography done on 02/04/ etta t shows normal chamber size, ejection fraction 65%-70%, trace to mild mitral regurgitation, trace to mild tricuspid regurgitation, right ventricular systolic pressure 38. RECOMMENDATION: Continue nicardipine while patient is in ICU. Once the patient is off ICU, will sta rt lisinopril baseline and since the patient is on steroid, may get a hypertensive response. P ut on hydralazine 10 mg IV q.i.d. p.r.n. for systolic more than 150 and diastolic more than 90. We w ill follow with you. Thank you, Dr. Darby, for providing us the opportunity in taking care of the patient. Cardiovascula r status is stable postop. We will follow with you. Repeat the blood in the morning. The patient's hemoglobin A1c is 5.4. TSH 0.22. Chica Simon MD cc: [id number] TT: 02/08/2017 09:27:27 Confirmation # [id number] Dictation # [id number] en
--- NOTE | 2017-02-08 09:39 | CP.PCM.PN ---
Subjective - Date & Time of Evaluation Date of Evaluation: 02/08/17 Time of Evaluation: 09:36 - Subjective Subjective: POD 1 vss A,A. 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 all intact 5/5 throughout mild dysmetria f to n on right min staining of dressing plan already OOB and taking po if can wean off iv nicardipine woul rec trans to tele Objective - Vital Signs/Intake and Output Vital Signs (last 24 hours): Temp Pulse Resp BP Pulse Ox 100.1 F H 99 H 16 138/83 98 02/08/17 08:39 02/08/17 09:33 02/08/17 08:00 02/08/17 09:33 02/08/17 08:00 Intake and Output: 02/08/17 02/08/17 06:59 18:59 Intake Total 1010 Output Total 1800 Balance -790 - Medications Medications: Current Medications Acetaminophen (Tylenol 325mg Tab) 650 mg PO Q4H PRN PRN Reason: Headache Last Admin: 02/08/17 08:39 Dose: 650 mg Albuterol/Ipratropium (Duoneb 3 Mg/0.5 Mg (3 Ml) Ud) 3 ml IH [id number] [facility] Last Admin: 02/08/17 07:33 Dose: Not Given Dexamethasone (Decadron Inj) 4 mg IVP Q8 [facility] Last Admin: 02/08/17 05:36 Dose: 4 mg Hydralazine HCl (Apresoline) 10 mg PO QID PRN PRN Reason: FOR SBOP>150 and diastolic>90 Last Admin: 02/08/17 09:33 Dose: 10 mg Dextrose/Sodium Chloride (Dextrose 5%/0.9% Ns 1000 Ml) 1,000 mls @ 40 mls/hr IV .Q24H [facility] Last Admin: 02/07/17 00:23 Dose: 40 mls/hr Pantoprazole Sodium (Protonix 40mg Ivpb) 100 mls @ 200 mls/hr IVPB 0600 [facility] Last Admin: 02/08/17 06:00 Dose: 200 mls/hr Nicardipine HCl (Cardene Iv Premix) 200 mls @ 50 mls/hr IV .Q4H PRN; Protocol; 5 MG/HR PRN Reason: TITRATE PER MD ORDER Last Titration: 02/07/17 15:00 Dose: 2.5 mg/hr Levetiracetam (Keppra) 500 mg PO BID [facility] Last Admin: 02/08/17 09:30 Dose: 500 mg Lisinopril (Zestril) 20 mg PO DAILY [facility] Last Admin: 02/08/17 09:31 Dose: 20 mg Metoclopramide HCl (Reglan) 5 mg IVP Q6 PRN PRN Reason: Nausea/Vomiting Last Admin: 02/08/17 08:40 Dose: 5 mg Morphine Sulfate (Morphine) 2 mg IVP Q4H PRN PRN Reason: Pain, moderate (4-7) Ondansetron HCl (Zofran Inj) 4 mg IVP Q4H PRN PRN Reason: Nausea/Vomiting Last Admin: 02/08/17 08:40 Dose: 4 mg - Labs Labs: 02/08/17 05:00 02/08/17 05:00 PT 11.0 Seconds (9.9-11.8) 02/02/17 16:00 INR 1.02 (0.93-1.08) 02/02/17 16:00 APTT 31.3 Seconds (23.7-30.8) H 02/02/17 16:00
--- NOTE | 2017-02-08 09:44 | CP.CCUPN ---
<Cari Mendoza - Last Filed: 02/08/17 09:45> CCU Subjective - Physician Review Subjective (Free Text): 02/08/17 09:41 Pt s&e w ICU attending. Pt underwent surgery yesterday and tolerated it well. Denies F/C/D/SOB/CP. C/O N/V/VALENCIA. Dressing changed by nursing. BP controlled. On HHD. CCU Objective - Vital Signs / Intake & Output Vital Signs (Last 4 hours): Vital Signs Temp Pulse Resp BP Pulse Ox 02/08/17 09:33 99 H 138/83 02/08/17 09:31 94 H 142/84 02/08/17 08:39 100.1 F H 02/08/17 08:00 100.1 F H 72 16 129/79 98 02/08/17 06:00 76 20 138/85 99 Intake and Output (Last 8hrs): Intake & Output 02/07/17 02/08/17 02/08/17 22:59 06:59 14:59 Intake Total 1675 1010 Output Total 2500 1800 Balance -825 -790 Intake: IV 415 810 Left Hand 240 Left Wrist 780 cardene 175 30 Oral 60 200 Other 1200 Output: Urine 2350 1800 Urethral (Rhodes) 2350 1800 Emesis 50 Other 100 Other: Voiding Method Indwelling Catheter Indwelling Catheter # Bowel Movements 0 - Physical Exam Head: Positive for: Tenderness, Swelling, Other (Dressing C/D/I) Pupils: Positive for: PERRL Extroacular Muscles: Positive for: EOMI Conjunctiva: Positive for: Normal Ears: Positive for: NORMAL TM, Normal Canal. Negative for: Erythema Mouth: Positive for: Moist Mucous Membranes Pharnyx: Negative for: ERYTHEMA, EXUDATE, TONSILS ENLARGED Neck: Positive for: Normal Range of Motion Respiratory/Chest: Positive for: Clear to Auscultation, Good Air Exchange, Decreased Breath Sounds. Negative for: Respiratory Distress, Accessory Muscle Use Cardiovascular: Positive for: Regular Rate and Rhythm, Normal S1, S2. Negative for: Murmurs Abdomen: Positive for: Normal Bowel Sounds. Negative for: Tenderness, Distention, Peritoneal Signs, Rebound, Guarding Upper Extremity: Positive for: Normal Inspection, Neurovascularly Intact. Negative for: Cyanosis, Edema Lower Extremity: Positive for: Normal Inspection, Neurovascularly Intact, Capillary Refill < 2 s. Negative for: Edema Neurological: Positive for: GCS=15, CN II-XII Intact, Speech Normal, Motor Func Grossly Intact, Normal Cerebellar Funct Skin: Positive for: Warm, Dry, Normal Color. Negative for: Rashes Psychiatric: Positive for: Alert, Oriented x 3, Normal Insight, Normal Concentration - Medications Active Medications: Active Medications Generic Name Dose Route Start Last Admin Trade Name Freq PRN Reason Stop Dose Admin Acetaminophen 650 mg 02/02/17 19:26 02/08/17 08:39 Tylenol 325mg Tab PO 650 mg Q4H PRN Administration Headache Albuterol/Ipratropium 3 ml 02/05/17 02:00 02/08/17 07:33 Duoneb 3 Mg/0.5 Mg (3 Ml) Ud IH Not Given [id number] JACQUIE Dexamethasone 4 mg 02/02/17 22:00 02/08/17 05:36 Decadron Inj IVP 4 mg Q8 JACQUIE Administration Hydralazine HCl 10 mg 02/07/17 11:39 02/08/17 09:33 Apresoline PO 10 mg QID PRN Administration FOR SBOP>150 and diastolic>90 Dextrose/Sodium Chloride 1,000 mls @ 40 mls/hr 02/07/17 00:01 02/07/17 00:23 Dextrose 5%/0.9% Ns 1000 Ml IV 40 mls/hr .Q24H JACQUIE Administration Pantoprazole Sodium 100 mls @ 200 mls/hr 02/08/17 06:00 02/08/17 06:00 Protonix 40mg Ivpb IVPB 200 mls/hr 0600 JACQUIE Administration Nicardipine HCl 200 mls @ 50 mls/hr 02/07/17 12:50 02/07/17 15:00 Cardene Iv Premix IV 2.5 mg/hr .Q4H PRN Titration TITRATE PER MD ORDER Protocol 5 MG/HR Levetiracetam 500 mg 02/03/17 10:00 02/08/17 09:30 Keppra PO 500 mg BID JACQUIE Administration Lisinopril 20 mg 02/03/17 10:00 02/08/17 09:31 Zestril PO 20 mg DAILY JACQUIE Administration Metoclopramide HCl 5 mg 02/07/17 16:43 02/08/17 08:40 Reglan IVP 5 mg Q6 PRN Administration Nausea/Vomiting Morphine Sulfate 2 mg 02/07/17 10:19 Morphine IVP Q4H PRN Pain, moderate (4-7) Ondansetron HCl 4 mg 02/07/17 14:39 02/08/17 08:40 Zofran Inj IVP 4 mg Q4H PRN Administration Nausea/Vomiting - Patient Studies Lab Studies: Lab Studies 02/08/17 02/07/17 Range/Units 05:00 16:50 WBC 10.6 11.4 H D (4.5-11.0) 10^3/ul RBC 4.91 4.70 (3.5-6.1) 10^6/uL Hgb 15.6 15.1 (12.0-16.0) gm/dL Hct 44.2 42.6 (36.0-48.0) % MCV 90.0 90.6 (80.0-105.0) fL MCH 31.8 32.1 (25.0-35.0) pg MCHC 35.3 35.4 (31.0-37.0) g/dl RDW 12.8 12.8 (11.5-14.5) % Plt Count 210 203 (120.0-450.0) 10^3/uL MPV 10.2 10.2 (7.0-11.0) fl Gran % 90.7 H 90.0 H (50.0-68.0) % Lymph % (Auto) 6.7 L 5.1 L (22.0-35.0) % [place] % (Auto) 2.5 4.8 (1.0-6.0) % Eos % (Auto) 0.0 L 0.0 L (1.5-5.0) % Baso % (Auto) 0.1 0.1 (0.0-3.0) % Gran # 9.64 H 10.23 H (1.4-6.5) Lymph # 0.7 L 0.6 L (1.2-3.4) Independence # 0.3 0.6 (0.1-0.6) Eos # 0.0 0.0 (0.0-0.7) Baso # 0.01 0.01 (0.0-2.0) K/mm3 Sodium 137 138 (132-148) mmol/L Potassium 4.4 4.3 (3.6-5.0) mmol/L Chloride 101 102 (95-110) mmol/L Carbon Dioxide 24 23 (21-33) mmol/L Anion Gap 16 17 (10-20) BUN 11 10 (7-21) mg/dL Creatinine 0.6 0.6 (0.5-1.4) mg/dL Est GFR ( Amer) > 60 > 60 Est GFR (Non-Af Amer) > 60 > 60 Random Glucose 133 H 145 H (70-110) mg/dL Calcium 9.7 9.7 (8.4-10.5) mg/dL Total Bilirubin 0.4 0.4 (0.2-1.3) mg/dL AST 22 21 (15-39) U/L ALT 20 20 (7-56) U/L Alkaline Phosphatase 74 76 (38-133) U/L Total Protein 7.1 7.0 (5.8-8.3) g/dL Albumin 3.6 3.7 (3.0-4.8) g/dL Globulin 3.4 3.3 gm/dL Albumin/Globulin Ratio 1.1 1.1 (1.1-1.8) Blood Type Confirm B POSITIVE Laboratory Results - last 24 hr 02/07/17 02/08/17 16:50 05:00 WBC 11.4 H D 10.6 RBC 4.70 4.91 Hgb 15.1 15.6 Hct 42.6 44.2 MCV 90.6 90.0 MCH 32.1 31.8 MCHC 35.4 35.3 RDW 12.8 12.8 Plt Count 203 210 MPV 10.2 10.2 Gran % 90.0 H 90.7 H Lymph % (Auto) 5.1 L 6.7 L [place] % (Auto) 4.8 2.5 Eos % (Auto) 0.0 L 0.0 L Baso % (Auto) 0.1 0.1 Gran # 10.23 H 9.64 H Lymph # 0.6 L 0.7 L [place] # 0.6 0.3 Eos # 0.0 0.0 Baso # 0.01 0.01 Sodium 138 137 Potassium 4.3 4.4 Chloride 102 101 Carbon Dioxide 23 24 Anion Gap 17 16 BUN 10 11 Creatinine 0.6 0.6 Est GFR ( Amer) > 60 > 60 Est GFR (Non-Af Amer) > 60 > 60 Random Glucose 145 H 133 H Calcium 9.7 9.7 Total Bilirubin 0.4 0.4 AST 21 22 ALT 20 20 Alkaline Phosphatase 76 74 Total Protein 7.0 7.1 Albumin 3.7 3.6 Globulin 3.3 3.4 Albumin/Globulin Ratio 1.1 1.1 Blood Type Confirm B POSITIVE Review of Systems - Constitutional Constitutional: absent: Fever, Chills - EENT Eyes: absent: Blurred Vision, Change in Vision Critical Care Progress Note - Nutrition Nutrition: Nutrition Category Date Time Status Heart Healthy Diet [DIET] Diets 02/07/17 Dinner Ordered Assessment/Plan - Assessment and Plan (Free Text) Assessment: 61 w PMH of HTN POD 1 s/p occipital craniectomy excision of cerebellar mass CT: chest : b/l upper lobe nodules suspicious for primary metastatic cancer Brain MRI: 6x3.5cm R frontal cystic mass 3x2 L frontal complex mass, 3x3 cerebellar mass with 0.5cm tonsillar herniation and mild hydrocephalus. Neuro: AA0 x3 -Seizure precaution: Keppra -Decadrone IV for swelling -EEG: no seizure activity -Neurocheck PRN -neuro following: Keppra, Decadrone -Neurosurgery following: recommends weaning off IV Nicardipine and transition to PO BP meds then transfer to TELE today. Frontal craniectomy likely on Sat. OK to DC A-line -Monitor wound for bleeding -Pain control: Morphine CV: h/o HTN -Keep MAP over 65 -Hydralazine PO PRN -Jolanta drip: Wean to PO meds. -Keep systolic BP around 140 per neurosurgery -Lisinopril -DC IVF, OK to DC A line per Neurosurgery to transfer to tele -Cardio following Pulm:h/o COPD, tabacco abuse CT: chest : b/l upper lobe nodules suspicious for primary metastatic cancer -Duoneb PRN -Keep sat above 90%, PaO2 60% + -NC O2 PRN GI: HHD -Aspitation precautions -ppx: protonix -Nausea control: Zofran, Reglan -Swallow eval today Renal -DC rhodes : Urine output 4L /24hrs -Keep euvolemia -I & O -Replete electrolyte as needed. Endo -Keep euglycemia ID -Keep normothermia -Tylenol PRN DVT ppx: SCD Dispo: [facility] when BP controlled with PO meds. DW ICU attending <Shine Villegas - Last Filed: 02/08/17 17:09> CCU Objective - Vital Signs / Intake & Output Vital Signs (Last 4 hours): Vital Signs Pulse Resp BP 02/08/17 14:00 71 17 107/64 Intake and Output (Last 8hrs): Intake & Output 02/08/17 02/08/17 02/08/17 06:59 14:59 22:59 Intake Total 1010 Output Total 1800 Balance -790 Weight 153 lb 12.8 oz Intake: IV 810 Left Wrist 780 cardene 30 Oral 200 Output: Urine 1800 Urethral (Rhodes) 1800 Other: Voiding Method Indwelling Catheter - Medications Active Medications: Active Medications Generic Name Dose Route Start Last Admin Trade Name Freq PRN Reason Stop Dose Admin Acetaminophen 650 mg 02/02/17 19:26 02/08/17 08:39 Tylenol 325mg Tab PO 650 mg Q4H PRN Administration Headache Albuterol/Ipratropium 3 ml 02/05/17 02:00 02/08/17 13:19 Duoneb 3 Mg/0.5 Mg (3 Ml) Ud IH Not Given [id number] JACQUIE Dexamethasone 4 mg 02/02/17 22:00 02/08/17 14:32 Decadron Inj IVP 4 mg Q8 JACQUIE Administration Hydralazine HCl 10 mg 02/07/17 11:39 02/08/17 09:33 Apresoline PO 10 mg QID PRN Administration FOR SBOP>150 and diastolic>90 Pantoprazole Sodium 100 mls @ 200 mls/hr 02/08/17 06:00 02/08/17 06:00 Protonix 40mg Ivpb IVPB 200 mls/hr 0600 JACQUIE Administration Levetiracetam 500 mg 02/03/17 10:00 02/08/17 09:30 Keppra PO 500 mg BID JACQUIE Administration Lisinopril 20 mg 02/03/17 10:00 02/08/17 09:31 Zestril PO 20 mg DAILY JACQUIE Administration Metoclopramide HCl 5 mg 02/07/17 16:43 02/08/17 08:40 Reglan IVP 5 mg Q6 PRN Administration Nausea/Vomiting Morphine Sulfate 2 mg 02/07/17 10:19 Morphine IVP Q4H PRN Pain, moderate (4-7) Ondansetron HCl 4 mg 02/07/17 14:39 02/08/17 08:40 Zofran Inj IVP 4 mg Q4H PRN Administration Nausea/Vomiting - Patient Studies Lab Studies: Microbiology Studies 02/07/17 13:31 MRSA Culture (Admit) - Final Naris MRSA NOT DETECTED Lab Studies 02/08/17 02/07/17 Range/Units 05:00 16:50 WBC 10.6 11.4 H D (4.5-11.0) 10^3/ul RBC 4.91 4.70 (3.5-6.1) 10^6/uL Hgb 15.6 15.1 (12.0-16.0) gm/dL Hct 44.2 42.6 (36.0-48.0) % MCV 90.0 90.6 (80.0-105.0) fL MCH 31.8 32.1 (25.0-35.0) pg MCHC 35.3 35.4 (31.0-37.0) g/dl RDW 12.8 12.8 (11.5-14.5) % Plt Count 210 203 (120.0-450.0) 10^3/uL MPV 10.2 10.2 (7.0-11.0) fl Gran % 90.7 H 90.0 H (50.0-68.0) % Lymph % (Auto) 6.7 L 5.1 L (22.0-35.0) % [place] % (Auto) 2.5 4.8 (1.0-6.0) % Eos % (Auto) 0.0 L 0.0 L (1.5-5.0) % Baso % (Auto) 0.1 0.1 (0.0-3.0) % Gran # 9.64 H 10.23 H (1.4-6.5) Lymph # 0.7 L 0.6 L (1.2-3.4) Independence # 0.3 0.6 (0.1-0.6) Eos # 0.0 0.0 (0.0-0.7) Baso # 0.01 0.01 (0.0-2.0) K/mm3 Sodium 137 138 (132-148) mmol/L Potassium 4.4 4.3 (3.6-5.0) mmol/L Chloride 101 102 (95-110) mmol/L Carbon Dioxide 24 23 (21-33) mmol/L Anion Gap 16 17 (10-20) BUN 11 10 (7-21) mg/dL Creatinine 0.6 0.6 (0.5-1.4) mg/dL Est GFR ( Amer) > 60 > 60 Est GFR (Non-Af Amer) > 60 > 60 Random Glucose 133 H 145 H (70-110) mg/dL Calcium 9.7 9.7 (8.4-10.5) mg/dL Total Bilirubin 0.4 0.4 (0.2-1.3) mg/dL AST 22 21 (15-39) U/L ALT 20 20 (7-56) U/L Alkaline Phosphatase 74 76 (38-133) U/L Total Protein 7.1 7.0 (5.8-8.3) g/dL Albumin 3.6 3.7 (3.0-4.8) g/dL Globulin 3.4 3.3 gm/dL Albumin/Globulin Ratio 1.1 1.1 (1.1-1.8) Blood Type Confirm B POSITIVE Laboratory Results - last 24 hr 02/07/17 02/08/17 16:50 05:00 WBC 11.4 H D 10.6 RBC 4.70 4.91 Hgb 15.1 15.6 Hct 42.6 44.2 MCV 90.6 90.0 MCH 32.1 31.8 MCHC 35.4 35.3 RDW 12.8 12.8 Plt Count 203 210 MPV 10.2 10.2 Gran % 90.0 H 90.7 H Lymph % (Auto) 5.1 L 6.7 L [place] % (Auto) 4.8 2.5 Eos % (Auto) 0.0 L 0.0 L Baso % (Auto) 0.1 0.1 Gran # 10.23 H 9.64 H Lymph # 0.6 L 0.7 L [place] # 0.6 0.3 Eos # 0.0 0.0 Baso # 0.01 0.01 Sodium 138 137 Potassium 4.3 4.4 Chloride 102 101 Carbon Dioxide 23 24 Anion Gap 17 16 BUN 10 11 Creatinine 0.6 0.6 Est GFR ( Amer) > 60 > 60 Est GFR (Non-Af Amer) > 60 > 60 Random Glucose 145 H 133 H Calcium 9.7 9.7 Total Bilirubin 0.4 0.4 AST 21 22 ALT 20 20 Alkaline Phosphatase 76 74 Total Protein 7.0 7.1 Albumin 3.7 3.6 Globulin 3.3 3.4 Albumin/Globulin Ratio 1.1 1.1 Blood Type Confirm B POSITIVE Critical Care Progress Note - Nutrition Nutrition: Nutrition Category Date Time Status Heart Healthy Diet [DIET] Diets 02/07/17 Dinner Ordered Addendum Addendum: 02/08/17 17:05 patient was seen and examined and discussed at bedside with Dr. Manny Mendoza. Her note reflects my exam, assessment and plan except as below. Meds/Labs/ONE reviewed. 61 yo female s/p excisional biopsy POD 1. Now is doing well. Hemodynamically and respiratory stable. Afebrle, euvolemic and normothermic. Ok to downgrade to tele ccm time 40 min
--- NOTE | 2017-02-08 15:44 | OP ---
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 PROCEDURE: Suboccipital craniectomy, excision of cerebellar tumor. SURGEON: Craig Ward MD REPAIRER [employer]QU[employer]MENT: Lisandro Linn MD ANESTHESIA: General endotracheal. ESTIMATED BLOOD LOSS: 100 mL. COMPLICATIONS: None. JUSTIFICATION: The patient presented with several weeks of progressive behavior disturbance. MRI do cumented unfortunately 2 large cystic enhancing lesions; 1 in the bifrontal region and 1 somewhat mor e ominously in the right cerebellar hemisphere with a very large cyst, brainstem compression and mild hydrocephalus. The patient was recommended to undergo suboccipital craniectomy and excisional biops y of this mass with decompression of the brainstem and hopefully alleviation of her hydrocephalus. T he nature of this procedure, the rationale behind it, alternatives, potential risks, complications, r ealistic chance of success were discussed with her and her family at length. All questions were answ ered. She fully understood the above and elected to proceed as offered. DESCRIPTION OF PROCEDURE: The patient was taken to the operating room. She was intubated and anesth etized, had the Purdy 3-point head fixator placed and was carefully turned onto a prone position o n the OR table on chest bolsters, head placed in a neutral position and fixated in place. The subocc ipital region was hair clipped, scrubbed with acetone and then scrubbed, painted and draped in the [facility] sterile fashion. The incision was traced out from the inion down to the C1 region. This was infiltrated with lidocain e. Incision was made with a 10 blade knife, carried down to the level of the fascia. The Bovie caut roxy was used to incise the fascia and only expose the right side of the occipital bone. This was don e with a combination of the Bovie cautery and a periosteal elevator. The exposure was taken from the inion, towards, but not fully down to the foramen magnum. Self-retaining retractors were placed. When enough of the occipital bone was exposed, central supply aide was used to make 1 bur hole in what was tho ught to be the center of the tumor. was used to deflect the dura off the inner table and then the craniotome was then used to swing a larger flap, swinging out exposing more of the dura and final ly we used a Leksell rongeur to take down some of the more inferior bone, down again not all the way through, but towards the level of the foramen magnum as well as exposing it out more laterally. We i ntentionally did not expose the midline, the transverse or lateral sinus. At this point, the dura was incised with a 15 blade and opened in a cruciate fashion. Some of the po sterior cerebellum almost immediately started herniating out through the dural opening. This was darnell ckly incised with the bipolar cautery, which then immediately decompressed the cyst. We collected mu ltiple milliliters of the yellow cystic fluid, which was then sent for cytology. This immediately de compressed the cerebellum. At this point, we used a technique of bipolar and suction to remove copious amounts of solid and semi -solid tumor. Multiple specimens were taken with a pituitary rongeur, which were then collected and sent for permanent pathology. The tumor resection proceeded in this manner until all the johnson of th e cavity looked like normal or edematous white matter. At this point, hemostasis was achieved with b ipolar cautery, followed by the placement of thrombinated Gelfoam and Surgicel. The cavity was observed for several minutes while we asked the anesthesiologist to raise the blood pr essure. This was done to at least a level of 150/90. There was no bleeding noted and the lining was kept as it is with the addition of some additional liquid thrombin filling the cavity. We recognized there was no way that we could possibly close the dura. Thus, a layer of thrombinated powered Gelfoam followed by a layer of solid Gelfoam was placed in the epidural space. This was then covered by a layer of Tisseel fibrin glue. At this point, the muscle was reapproximated using interrupted 0 Vicryl stitches, fascia closed using a tight interrupted 0 Vicryl stitch. The wound copiously irrigated with antibiotic solution. The s ubQ closed in separate layers of 2-0 Vicryl. The skin closed with irma. Bacitracin ointment and self-adhering dressing was placed. At this point, the patient was disconnected from the table, carefully turned onto a supine position o n a stretcher. The Purdy was removed. She was then extubated without difficulty. She was then n oted to be following commands, moving all 4 extremities with good strength in the recovery room. All counts were correct. There were no complications. Craig Ward MD cc: [id number] TT: 02/08/2017 14:29:06 en
--- NOTE | 2017-02-08 17:48 | PN ---
DATE: 02/08/2017 REFERRING PHYSICIAN: Dr. Darby SUBJECTIVE: She is lying in the bed, head at 45 degrees, sleepy, arousable. Night was unremarkable. No headaches, no rhinitis, no cough, no nausea, no vomiting, no diarrhea. No leg pain or leg swell ing. OBJECTIVE: GENERAL: No acute distress. VITAL SIGNS: Temperature is 98, heart rate 65, respiratory rate is 16, blood pressure 107/64, pulse ox 94% on room air. HEENT: Moist mucous membrane. Crowded airway. NECK: Supple, no JVD. Occipital side of the head has a dressing. LUNGS: Has a fair airflow with few rhonchi. HEART: S1, S2. ABDOMEN: Soft, nontender. No organomegaly. EXTREMITIES: There is no edema. NEUROLOGIC: Sleepy, arousable, follows simple commands. MEDICATIONS: She is on hydralazine 10 mg q.i.d. p.r.n., Decadron 4 mg q. 8 hours, DuoNeb q. 6 hours, Keppra 500 mg twice a day, morphine 2 mg IV q. 4 hours p.r.n., Protonix 40 mg daily, Reglan 5 mg q. 6 hours p.r.n., Tylenol p.r.n. basis, Zestril 20 mg daily, Zofran p.r.n. basis. LABORATORY DATA: Shows hemoglobin 15.6, hematocrit 44.2, WBC 10.6, platelet count is 210. Sodium 13 7, potassium 4.4, chloride 101, bicarbonate 24, BUN 11, creatinine 0.6, glucose 133, calcium is 9.7, AST 22, ALT 20, alkaline phosphatase is 74, albumin is 3.6. 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 Continue bronchodilator. Keep head elevated at 45 degrees, on Decadron. Gastric prophylaxis. Sequential compression devices to lower extremity. Deep venous thrombosis prophylaxis. Awaiting for pathology report. Thank you and we will follow with you. Chica Palmer MD cc: [id number] TT: 02/08/2017 17:47:27 Confirmation # [id number] Dictation # [id number] en
[2017-02-09] MEDS: Pantoprazole 40mg/100ml IVPB 100 ML IVPB SCH (06:12)
[2017-02-09] MEDS: Dexamethasone 4 mg/1 ml IVP SCH ×3 (06:12→21:37)
[2017-02-09] MEDS: Albuterol-Ipratrop 3 mg / 0.5 (3 ml) UD IH SCH ×3 (07:37→19:21)
[2017-02-09 08:01] LABS: ADD MANUAL DIFF? NO
[2017-02-09 08:11] LABS: GRAN # 8.56 (1.4-6.5); GRAN % 87.6 % (50.0-68.0); HEMATOCRIT 43.2 % (36.0-48.0); LYMPH # 0.9 (1.2-3.4); LYMPH % 9.1 % (22.0-35.0); MEAN CELL VOLUME 90.6 fL (80.0-105.0); MEAN CORPUSCULAR HEMOGLOBIN 31.4 pg (25.0-35.0); MEAN CORPUSCULAR HGB CONC 34.7 g/dl (31.0-37.0); MONO # 0.3 (0.1-0.6); MONO % 3.3 % (1.0-6.0); PLATELET COUNT 192 10^3/uL (120.0-450.0); WHITE BLOOD COUNT 9.8 10^3/ul (4.5-11.0)
[2017-02-09 08:26] LABS: BLOOD UREA NITROGEN 20 mg/dL (7-21); CALCIUM 9.4 mg/dL (8.4-10.5); CARBON DIOXIDE 24 mmol/L (21-33); CHLORIDE 102 mmol/L (98-107); GFR AFRICAN-AMERICAN > 60; GLUCOSE,RANDOM 99 mg/dL (70-110); MAGNESIUM 2.3 mg/dL (1.7-2.2); PHOSPHOROUS 4.9 mg/dL (2.5-4.5); POTASSIUM 4.8 mmol/L (3.6-5.0); SODIUM 136 mmol/L (132-148)
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
--- NOTE | 2017-02-09 12:54 | PN ---
DATE: 02/08/2017 SUBJECTIVE: The patient seen and examined on bedside in the unit, feels comfortable. No headache. No more vomiting. Still sometime feeling nauseous. No fever, no chills. No swelling of the legs. PHYSICAL EXAMINATION: VITAL SIGNS: Temperature 98, heart rate is 65, respiratory rate 16, blood pressure 107/64, and pulse oximetry is 94% on room air. HEENT: Normocephalic, has dressing on the back of the head status post surgery. Eyes: PERRLA. Extraocular muscles intact. Conjunctivae clear. Eyelids unremarkable. Nose is patent. Mucous membranes are moist. NECK: Supple. No carotid bruit, JVD or thyromegaly. CHEST: Bilaterally symmetrical. HEART: S1, S2 positive. LUNGS: Has a fair airflow with few rhonchi. ABDOMEN: Soft, nontender. No organomegaly. EXTREMITIES: No edema, no cyanosis. NEUROLOGIC: The patient is awake, moving all 4 extremities. No focal deficit. MEDICATIONS: Hydralazine, Decadron, DuoNeb, Keppra, morphine, Protonix, Reglan , Tylenol, Zestril, Zofran. LABORATORY DATA: Hemoglobin 15.6, hematocrit 44.2, white blood cells noted , and platelets 210. Sodium 136, potassium 4.4, BUN 11, creatinine 0.6, AST 22, ALT 20, alkaline phosphatase 74. ASSESSMENT AND PLAN: Ms. Clovis Camarena is a 61-year-old female with metastatic disease, probably primary is in the left lung. Has bilateral upper lobe lung nodules. Brain lesion, status post resection of the tumor in the back of the head, may be after a couple of days she will undergo another craniotomy, but this time from the front side. Discussion done with all Dr. He is planning to put another surgery. The patient and patient's family agrees. Hypertension , hypercholesterolemia, disease, active smoker, I spoke to nursing specialist. Continue bronchodilators, reviewed Dr. Palmer's notes. Gastric prophylaxis, sequential compression devices for lower extremity. Waiting for pathology report. Discussion done with DrQuinton, I reviewed Dr. Palmer's notes. Discussion done even with the patient's work people, trying to arrange short term disability for the patient. We will follow up. Yaneth Darby MD cc: [id number] TT: 02/08/2017 21:54:15 Confirmation # [id number] Dictation # [id number] tn 02/09/2017 11:53:32 DOYLE
--- NOTE | 2017-02-09 13:54 | PN ---
DATE: 02/09/2017 The patient is in room 260, bed 1. REASON FOR CONSULTATION AND FOLLOWUP: Status post craniotomy, removal of tumor from occipital lobe, cerebral tumor, post-operation hypertensive. HISTORY OF PRESENT ILLNESS: The patient is a 61-year-old female with past medical history significan t for hypertension, hyperlipidemia, was getting headaches. CT scan showed a mass in the brain. Two days ago the patient underwent craniotomy and removal of the tumor mass. Postop patient has elevated blood pressure 180/100, was given hydralazine. The patient is lying flat in bed without any chest p ain, shortness of breath, palpitation. PHYSICAL EXAMINATION: VITAL SIGNS: Blood pressure 119/79, respirations 18, pulse 63, temperature 98.1. HEAD: Normocephalic. EYES: Pupils normal. Conjunctivae normal. NOSE AND THROAT: Normal. NECK: JVP low. Carotid equal. THORAX: AP diameter normal. LUNGS: Clear. CARDIOVASCULAR: S1, S2. ABDOMEN: Soft, nontender, no organomegaly. Bowel sounds normal. EXTREMITIES: No clubbing, no cyanosis. LABORATORY DATA: WBC 9.8, hemoglobin 15.0, hematocrit 43.2, platelets 192. Sodium 136, potassium 4. 8, BUN 20, creatinine 0.8, phosphorus 4.9, magnesium 2.3. DIAGNOSES: Tumor mass, status post removal of cerebral tumor from occipital lobe. Postop hypertensi on, hyperlipidemia, echo on 02/04/2017 showed normal ejection fraction 65%-70%, [id number] mitral r egurg, trace to mild tricuspid regurg, right ventricle systolic pressure 38 mmHg. PLAN: The patient on Decadron 4 mg IV q. 8 hours, DuoNeb hand nebulizer therapy, Keppra 500 b.i.d., Protonix 40 IV daily, lisinopril 20 daily. We will continue present therapy, will monitor and follow with you. Chica Fang MD cc: [id number] TT: 02/09/2017 13:53:18 Confirmation # [id number] Dictation # [id number] dominick
--- NOTE | 2017-02-09 15:07 | PN ---
DATE: 02/09/2017 SUBJECTIVE: The patient seen and examined on the bedside. , Paty Hernández was sitting on th e bedside also. Feeling better. Pain in the head is better. No fever, no chills. No nausea, vomit ing, or diarrhea. No hematuria or hematochezia. No swelling of the leg. No chest pain or palpitati on. PHYSICAL EXAMINATION: VITAL SIGNS: Temperature is 98.1, pulse 82, blood pressure 119/79, respiratory rate 18. HEENT: Head normocephalic. Dressing on the back of the head. Eyes: PERRLA. Extraocular muscles i ntact. Conjunctivae clear. Nose patent. Mucous membranes moist. NECK: Supple. No carotid bruit, JVD or thyromegaly. CHEST: Bilaterally symmetrical. HEART: S1, S2 positive. LUNGS: Clear to auscultation. ABDOMEN: Soft. Bowel sounds present. No organomegaly. EXTREMITIES: No edema, no cyanosis. NEUROLOGIC: The patient is awake, alert. Moving all 4 extremities. No focal deficit. MEDICATIONS: Hydralazine, Decadron, DuoNeb, Keppra, morphine, Protonix, Reglan, Tylenol, Zestril and Zofran. LABORATORY DATA: White blood cells 9.8, hemoglobin 15.0, hematocrit 43.2, and platelets 192. Sodium 136, potassium 4.8, BUN 20, creatinine 0.8. Phosphorus 4.9, magnesium 2.3. TSH 0.22. ASSESSMENT AND PLAN: The patient is a 61-year-old lady with history of leukocytosis, improved, drop of hemoglobin. On admission, it was 17, now it is 15, hyperphosphatemia, hypermagnesemia, history of hyperglycemia, hypothyroidism. 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 Craig Ward assisted by Dr. Lisandro Linn under general anesthesia with endotracheal. T he patient has history of heavy smoking, chronic obstructive pulmonary disease, looks like metastatic disease, but still waiting for the pathology. Primary lesion looks like in the lung, has bilateral upper lobe lung nodules, hypertension, hypercholesterolemia, chronic obstructive lung disease. Spoke to Dr. Ward. Continue bronchodilators, Decadron and gastric prophylaxis. Sequential compression devices deep vein thrombosis prophylaxis. Gastrointestinal prophylaxis. Discussion done with the p atient and . All questions answered. We will follow up. Yaneth Darby MD cc: [id number] TT: 02/09/2017 15:06:26 Confirmation # [id number] Dictation # [id number] tn
--- NOTE | 2017-02-09 18:16 | PN ---
DATE: 02/09/2017 REFERRING PHYSICIAN: Dr. Darby. SUBJECTIVE: She is lying in the bed, head at 45 degree, night was unremarkable. No headaches, no rh initis, no nausea, vomiting, diarrhea. No leg pain or leg swelling. OBJECTIVE: GENERAL: No acute distress. VITAL SIGNS: Temp is 98, heart rate 53, respiratory rate is 20, blood pressure is 112/69, and pulse ox 99% on 2 liter nasal cannula. HEENT: Moist mucous membrane. Crowded airway. NECK: Supple, no JVD. LUNGS: Have a fair airflow with few rhonchi. HEART: S1, S2. ABDOMEN: Soft, nontender. No organomegaly. EXTREMITIES: There is no edema. NEUROLOGIC: Awake, alert, follows simple command. MEDICATIONS: She is on hydralazine 10 mg q.i.d. p.r.n., Decadron 4 mg IV q. 8 hours, DuoNeb q. 6 forrest rs, Keppra 500 mg twice a day, morphine 2 mg IV q. 4 hours p.r.n., Protonix 40 mg daily, Reglan 5 mg q. 6 hours p.r.n., Tylenol p.r.n., Zestril 20 mg daily, Zofran 4 mg q. 4 hours p.r.n. LABORATORY DATA: Shows hemoglobin , hematocrit 43.2, WBC 9.8, platelet is 192. Sodium 136, pot assium 4.8, chloride 102, bicarbonate 24, BUN 20, creatinine 0.8, glucose is 99, calcium 9.4, phospho manuel 4.9, magnesium 2.3. IMPRESSION AND PLAN: Metastatic disease, probably primary is the lung, bilateral upper lobe nodule, brain lesions status post craniotomy, resection, hypertension, hyperlipidemia, chronic lung disease, active smoker. I spoke to nursing staff, out of bed to chair. Gastric prophylaxis. Deep venous thr ombosis prophylaxis. Start physical therapy, when cleared by neurosurgery may be transferred to [facility] for continued care, awaiting for pathology report. Thank you. We will follow with you. Chica Palmer MD cc: [id number] TT: 02/09/2017 18:15:49 Confirmation # [id number] Dictation # [id number] hn
[2017-02-10] MEDS: Albuterol-Ipratrop 3 mg / 0.5 (3 ml) UD IH SCH ×4 (01:03→19:15)
[2017-02-10] MEDS: Pantoprazole 40mg/100ml IVPB 100 ML IVPB SCH (05:44)
[2017-02-10] MEDS: Dexamethasone 4 mg/1 ml IVP SCH ×3 (05:44→21:48)
--- NOTE | 2017-02-10 15:43 | PN ---
DATE: 02/10/2017 The patient is in room 260, bed 1. REASON FOR CONSULTATION AND FOLLOWUP: Status post craniotomy, removal of tumor from occipital lobe, cerebellar tumor, postop hypertension. HISTORY OF PRESENT ILLNESS: The patient is a 61-year-old female with past medical history significan t for hypertension, hyperlipidemia, was getting headaches. CT scan showed a mass in the brain 3 days ago. The patient had craniotomy and removal of the tumor mass, post-operation developed elevated bl ood pressure 180/100, was given hydralazine. The patient is lying comfortably in bed without any car diac symptoms. PHYSICAL EXAMINATION: VITAL SIGNS: Blood pressure 103/66, respirations 18, temperature 97.5. HEAD: Normocephalic. EYES: Pupils normal. Conjunctivae are normal. NECK: JVP low. Carotids equal. THORAX: AP diameter normal. LUNGS: Clear. CARDIOVASCULAR: S1, S2. ABDOMEN: Soft, nontender, no organomegaly. Bowel sounds normal. EXTREMITIES: No clubbing, no cyanosis. LABORATORY DATA: WBC 9.8, hemoglobin 15.0, hematocrit 43.2, platelets 192. Sodium 136, potassium 4. 8, BUN 20, creatinine 0.8, phosphorus 4.9, magnesium 2.3. DIAGNOSES: Tumor mass, status post removal of cerebral tumor from occipital lobe, postop hypertensio n, hyperlipidemia. Echo on 02/04/2017 showed normal ejection fraction of 65%-70%, trace to mild mitral regurgitation, trace to mild tricuspid regurg, right ventricle systolic pressure 38 mmHg. PLAN: To continue Decadron 4 mg IV q. 8 hours, Keppra 500 mg b.i.d., lisinopril 20 daily. We will c renettainue present therapy and we will follow with you. Chica Fang MD cc: [id number] TT: 02/10/2017 15:43:03 Confirmation # [id number] Dictation # [id number] sandy
--- NOTE | 2017-02-10 17:16 | PN ---
DATE: 02/10/2017 REFERRING PHYSICIAN: Dr. Darby. SUBJECTIVE: She is lying in the bed, head at 45 degrees. Night was unremarkable. No headache, no r hinitis, no nausea, no vomiting, no diarrhea. No leg pain or leg swelling. OBJECTIVE: GENERAL: In no acute distress. VITAL SIGNS: Temperature is 98, heart rate is 68, respiratory rate is 20, blood pressure 99/57, puls e ox 99% on room air. HEENT: Moist mucous membranes. Crowded airway. Craniotomy wound looks okay. NECK: Supple, no JVD. LUNGS: Has a fair airflow with a few rhonchi. HEART: S1, S2. ABDOMEN: Soft, nontender. No organomegaly. EXTREMITIES: There is no edema. NEUROLOGIC: Awake, alert, follows simple commands. MEDICATIONS: She is on hydralazine 10 mg q.i.d. p.r.n., Decadron 4 mg q.8 hours, DuoNeb q.6 hours ar ound the clock, Keppra 500 mg twice a day, morphine 2 mg q.4 hours p.r.n., Protonix 40 mg daily, Regl an 5 mg q.6 hours p.r.n., Tylenol on a p.r.n. basis, lisinopril 20 mg daily, Zofran on a p.r.n. basis . LABORATORY DATA: Reviewed. No new lab is available since yesterday. IMPRESSION AND PLAN: Probably metastatic carcinoma, primary probably is the lung; has right up per lobe nodule, multiple brain metastases status post craniotomy and resection of tumor, chronic obs tructive pulmonary disease, hypertension. The case was discussed with Dr. Darby. Awaiting for neur osurgery evaluation. I believe she is scheduled for another craniotomy for a frontal lobe tumor. Pu lmonary point of view, she is doing okay. Keep head elevated at 45 degrees. Sleep apnea precaution. Avoid sedation. Gastric prophylaxis. Sequential compression devices to lower extremities. Out of bed to chair. Fall precaution. Awaiting for pathology report for first resection. Thank you and will follow with you. Chica Palmer MD cc: [id number] TT: 02/10/2017 17:15:41 Confirmation # [id number] Dictation # [id number] dn
[2017-02-11] MEDS: Albuterol-Ipratrop 3 mg / 0.5 (3 ml) UD IH SCH ×4 (01:01→19:48)
[2017-02-11] MEDS: Dexamethasone 4 mg/1 ml IVP SCH ×3 (05:11→21:36)
[2017-02-11] MEDS: Pantoprazole 40mg/100ml IVPB 100 ML IVPB SCH (05:12)
--- NOTE | 2017-02-11 10:46 | PN ---
DATE: 02/11/2017 REASON FOR CONSULTATION AND FOLLOWUP: Status post craniotomy, removal of tumor of occipital lobe, ce rebellar tumor, postop hypertension. BRIEF CLINICAL HISTORY: A 61-year-old female with a past medical history significant for hypertensio n, hyperlipidemia, was getting headache. CT scan shows a mass in the brain, is status post craniotom y, removal of occipital lobe. Postop, patient developed hypertension. Now, patient is in tele metry, stable. Denies any chest pain, shortness of breath, any palpitation. PHYSICAL EXAMINATION: VITAL SIGNS: Temperature afebrile, heart rate , blood pressure 99/57. HEENT: PERRLA. Extraocular muscles intact. NECK: Supple. No carotid bruits. No thyromegaly. CHEST: Clear to auscultation. HEART: S1, S2 regular. ABDOMEN: Soft. EXTREMITIES: Clubbing, cyanosis negative. BLOOD WORKUP: WBC 9. , hemoglobin 15, hematocrit 43.2, platelet count 192. Chemistry shows sodi um 130, potassium 4. , chloride 102, carbon dioxide 24, anion gap of 15, BUN 20, creatinine 0.8, calcium 9.4, phosphorus 4.3, magnesium 2.3. IMPRESSION: Status post removal of the tumor from occipital lobe, postop hypertension. Echo dated shows a normal ejection fraction 65%-70%, trace to mild mitral regurgitation, trace to mild tricuspid regurgitation, right ventricular systolic pressure 38. The patient is getting Keppra posto p, Decadron. Since this morning, patient's blood pressure is low, so we will discontinue lisinopril and continue p.r.n. hydralazine. Reassess once the blood pressure goes up the need for lisinopril. For now, we are going to hold the lisinopril. We will follow with you. Thank you, Dr. Darby, for providing us the opportunity in taking care of the patient. We will follo w with you. For now, continue p.r.n. hydralazine. Repeat the lab in the morning. Chica Simon MD cc: [id number] TT: 02/11/2017 10:45:49 Confirmation # [id number] Dictation # [id number] en
--- NOTE | 2017-02-11 20:33 | PN ---
DATE: 02/11/2017 REFERRING PHYSICIAN: Dr. Darby. SUBJECTIVE: She is lying in the bed, head at 45 degrees. No headache, no rhinitis, no nausea, no vo miting, diarrhea. No leg pain or leg swelling. OBJECTIVE: GENERAL: No acute distress. VITAL SIGNS: Temp is 98, heart rate is 88, respiratory rate is 20, blood pressure 116/78, pulse ox 9 9% on room air. HEENT: Moist mucous membranes. Crowded airway. NECK: Supple. No JVD. LUNGS: Has a fair airflow with few rhonchi. HEART: S1 and S2. ABDOMEN: Soft, nontender. No organomegaly. EXTREMITIES: There is no edema. NEUROLOGIC: Awake, alert, follows simple commands. MEDICATIONS: She is on hydralazine 10 mg q. 6 hours p.r.n., Decadron 4 mg q. 8 hours, DuoNeb q. 6 ho urs, Keppra 500 mg twice a day, Protonix 40 mg daily, Reglan 5 mg q. 6 hours p.r.n. for nausea, Tylen ol p.r.n. basis, Zofran on a p.r.n. basis. LABORATORY DATA: Reviewed. No new lab is available since yesterday. Nares MRSA is nondetected. Pa thology from the brain is still pending. IMPRESSION AND PLAN: Probably metastatic carcinoma, primary from the lung to the brain, status post craniotomy resection of the tumor, awaiting for pathology report, chronic obstructive lung disease, h ypertension. Continue bronchodilator. Keep head elevated at 45 degrees. Sequential compression dev ices to lower extremity. Gastric prophylaxis. Still on steroids. Neurosurgery followup. Gastric p rophylaxis. Sequential compression device to lower extremity. Fall precautions. Therapy for the de cision once pathology report is back. Will follow with you. Chica Palmer MD cc: [id number] TT: 02/11/2017 20:32:57 Confirmation # [id number] Dictation # [id number] sandy
--- NOTE | 2017-02-12 01:26 | PN ---
DATE: 02/11/2017 SUBJECTIVE: The patient seen and examined on the bedside, looks comfortable. No nausea, vomiting, o r diarrhea. No hematuria or hematochezia. No swelling of the leg. No chest pain, no palpitation. Headache is getting better. Back of the head has dressing. No fever, no chills. PHYSICAL EXAMINATION: VITAL SIGNS: Temperature 98, pulse 88, blood pressure 115/78, respiratory rate 20. HEENT: Head normocephalic, atraumatic. Eyes: PERRLA. Extraocular muscles intact. Conjunctivae pi nk. Eyelids unremarkable. Nose patent. Mucous membranes moist. NECK: Supple. No carotid bruit, JVD or thyromegaly. CHEST: Bilaterally symmetrical. HEART: S1, S2 positive. LUNGS: Clear to auscultation. ABDOMEN: Soft. Bowel sounds present. No organomegaly. EXTREMITIES: No edema, no cyanosis. NEUROLOGIC: The patient is awake, alert, moving all 4 extremities. No focal deficit. MEDICATIONS: Hydralazine, Decadron, albuterol, Keppra, Protonix, Reglan, Tylenol, and Zofran. LABORATORY DATA: White blood cells 9.8, hemoglobin 15.0, hematocrit 43.2, and platelets 192. Sodium 136, potassium 4.8, BUN 13, creatinine 0.8, phosphorus 4.9, magnesium 2.3. ASSESSMENT AND PLAN: The patient is a 61-year-old lady with history of leukocytosis, improved. Hist ory of polycythemia, improved, history of hyperglycemia, getting better, history of hyperphosphatemia , hypermagnesemia, hyperthyroidism, probably metastatic carcinoma, primary from the lungs to the brai n, status post craniotomy and resection of the tumor in the posterior fossa, waiting for the patholog y report, chronic obstructive lung disease, hypertension, lesion in both lungs. Continue bronchodila tor. Keep head elevated at 45 degree. Sequential compression devices to the lower extremities. Gas tric prophylaxis and deep vein thrombosis prophylaxis. Dr. Ward is the neurologist on the case, d iscussion done with him about the patient's treatment plan. Fall precautions, seizure precautions. Waiting for pathology report. Nares methicillin resistant Staphylococcus aureus is nondetected. Rev iewed Dr. Palmer and Dr. Simon's notes and Dr. Paz's notes also and Dr. Craig Ward's notes. We w ill follow up. Yaneth Darby MD cc: [id number] TT: 02/12/2017 01:25:42 Confirmation # [id number] Dictation # [id number] tn
[2017-02-12] MEDS: Albuterol-Ipratrop 3 mg / 0.5 (3 ml) UD IH SCH ×4 (01:38→20:54)
[2017-02-12] MEDS: Pantoprazole 40mg/100ml IVPB 100 ML IVPB SCH (05:38)
[2017-02-12] MEDS: Dexamethasone 4 mg/1 ml IVP SCH ×3 (05:38→21:41)
--- NOTE | 2017-02-12 07:12 | PN ---
DATE: 02/12/2017 REASON FOR CONSULTATION AND FOLLOWUP: Status post craniotomy and removal of the tumor from occipital lobe, cerebral tumor, postop hypertension. BRIEF CLINICAL HISTORY: This is a 61-year-old female with past medical history significant for heada kali, hypertension, hyperlipidemia. CT scan shows brain mass status post craniotomy removal of ____ occipital lobe. Postop, the patient developed hypertension. Now, the patient is in on telemetry. D enies any chest pain, shortness of breath, any palpitation. PHYSICAL EXAMINATION: VITAL SIGNS: Temperature afebrile, heart rate 88, blood pressure 116/____. HEENT: PERRLA. Extraocular muscles intact. NECK: Supple. No carotid bruits. No thyromegaly. CHEST: Clear to auscultation. HEART: S1, S2 regular. ABDOMEN: Soft. EXTREMITIES: Clubbing and cyanosis negative. LABORATORY DATA: WBC 9.8, hemoglobin 15, hematocrit 43.2, platelet count 192. Chemistry shows sodiu m 136, potassium 4.0, chloride 102, carbon dioxide 24, anion gap of 15, BUN 20, creatinine 0.8. IMPRESSION: Status post craniotomy as well as removal of tumor from the occipital lobe, postop hyper tension. Echo dated 02/04/2017 shows normal left ventricular function, ejection fraction 55% represe nts trace to mild mitral regurgitation, trace to mild tricuspid regurgitation, right ventricular syst olic pressure at 38. The patient is getting Keppra and Decadron for seizure and postop steroids. Si nce the blood pressure was low side, so lisinopril was discontinued and not on beta-glenroy because t he patient has baseline bradycardia. If hemodynamically stable, will put p.r.n. hydralazine to monit or the blood pressure and discontinue lisinopril. Continue p.r.n. hydralazine. If remain stable, we can discontinue telemetry. Thank you, Dr. Darby, for providing the opportunity in taking care of the patient. Chica Simon MD cc: [id number] TT: 02/12/2017 04:49:20 Confirmation # [id number] Dictation # [id number] in 02/12/2017 06:11:42
--- NOTE | 2017-02-12 21:39 | PN ---
DATE: 02/12/2017 REFERRING PHYSICIAN: Dr. Darby. SUBJECTIVE: She is lying in the bed, head at 45 degrees. No headache, no rhinitis, no nausea, no vo miting, no diarrhea. No leg pain or leg swelling. OBJECTIVE: GENERAL: No acute distress. VITAL SIGNS: Temp is 98, heart rate 74, respiratory rate 18, blood pressure 111/58, pulse ox 97% on room air. HEENT: Moist mucous membrane. No ulcer or oral thrush noted. Craniotomy wound is healing well. No discharge. NECK: Supple. No JVP. LUNGS: Has a fair airflow with few rhonchi. HEART: S1 and S2. ABDOMEN: Soft, nontender. No organomegaly. EXTREMITIES: There is no edema. NEUROLOGIC: Awake, alert, follows simple commands. MEDICATIONS: She is on hydralazine 10 mg q.i.d. p.r.n., Decadron 4 mg q. 8 hours, DuoNeb q. 6 hours, Keppra 500 mg twice a day, IV fluid with potassium 40 mEq daily, Protonix 40 mg daily, Reglan 5 mg q . 6 hours p.r.n., Tylenol p.r.n., Zofran on a p.r.n. basis. LABORATORY DATA: Shows no new lab is available. IMPRESSION AND PLAN: Probably has a metastatic carcinoma. The pathology report is still pending. L esions are bilateral upper lobe and also in the brain, status post craniotomy and resection of the tu mor. Pathology report is still pending. Chronic obstructive lung disease, hypertension. Pulmonary point of view, she is doing well. Keep head elevated at 45 degrees. Bronchodilator. Gastric prophy laxis. Sequential compression devices to lower extremities. On high dose of steroids. Being follow ed by neurology and neurosurgery. Will follow with you. Chica Palmer MD cc: [id number] TT: 02/12/2017 21:38:41 Confirmation # [id number] Dictation # [id number] sandy
[2017-02-13] MEDS ORDERED: Potassium Ch 20mEq in D5W 1,000 ML IV SCH (00:01)
--- NOTE | 2017-02-13 01:12 | PN ---
DATE: 02/10/2017 DATE OF SERVICE: 02/10/2017 SUBJECTIVE: The patient seen and examined on 02/10/2017, looks comfortable. No fever, no chills, no nausea, vomiting, or diarrhea. No hematuria or hematochezia. No swelling of the leg. No headache, no dizziness. Does not look like toxic. PHYSICAL EXAMINATION: VITAL SIGNS: Temperature 98, heart rate 68, respiratory rate 20, blood pressure 90/57, pulse oximeter 99% on room air. HEENT: Head normocephalic, atraumatic. Eyes: PERRLA. Extraocular muscles intact. Conjunctivae pink. Eyelids unremarkable. Nose patent. Mucous membranes moist. NECK: Supple. No carotid bruit, JVD or thyromegaly. CHEST: Bilaterally symmetrical. HEART: S1, S2 positive. LUNGS: Clear to auscultation. ABDOMEN: Soft. Bowel sounds present. No organomegaly. EXTREMITIES: No edema, no cyanosis. NEUROLOGIC: The patient is awake, alert, follows simple commands. MEDICATIONS: Hydralazine, Decadron, DuoNeb, Keppra, morphine, Protonix, Reglan , Tylenol, Lisinopril and Zofran. LABORATORY DATA: We do not have recent labs today, but I reviewed old labs. ASSESSMENT AND PLAN: Ms. Nicol Brannon is a 61-year-old my private patient, looks like had metastatic carcinoma, primary pulmonary may be in the lung. May be adenocarcinoma. She has indensity both lungs , multiple brain metastases, especially 2 in the back and 1 on the front, post-craniotomy of the procedure side, recession of the tumor, chronic pulmonary disease, hypertension , history of actively smoking. According to Dr. Ward, he is trying to another surgery from the frontal lobe and awaiting for pathology results. The patient is comfortable, GI due to prophylaxis. Repeat labs. We will follow up. Yaneth Darby MD cc: [id number] TT: 02/13/2017 01:11:35 Confirmation # [id number] Dictation # [id number] jonathan KWON
[2017-02-13] MEDS: Albuterol-Ipratrop 3 mg / 0.5 (3 ml) UD IH SCH ×4 (01:21→20:00)
[2017-02-13] MEDS: Dexamethasone 4 mg/1 ml IVP SCH ×3 (05:26→21:37)
[2017-02-13] MEDS: Pantoprazole 40mg/100ml IVPB 100 ML IVPB SCH (05:26)
[2017-02-13 07:02] LABS: ADD MANUAL DIFF? NO
[2017-02-13 07:15] LABS: GRAN # 7.09 (1.4-6.5); GRAN % 88.3 % (50.0-68.0); HEMATOCRIT 40.9 % (36.0-48.0); LYMPH # 0.7 (1.2-3.4); LYMPH % 8.3 % (22.0-35.0); MEAN CELL VOLUME 89.7 fL (80.0-105.0); MEAN CORPUSCULAR HEMOGLOBIN 31.1 pg (25.0-35.0); MEAN CORPUSCULAR HGB CONC 34.7 g/dl (31.0-37.0); MEAN PLATELET VOLUME 9.8 fl (7.0-11.0); MONO # 0.3 (0.1-0.6); MONO % 3.4 % (1.0-6.0); PLATELET COUNT 198 10^3/uL (120.0-450.0); RED CELL DISTRIBUTION WIDTH 12.8 % (11.5-14.5)
[2017-02-13 07:27] LABS: ALB/GLOB RATIO 1.1 (1.1-1.8); ALKALINE PHOSPHATASE 57 U/L (38-133); ALT/SGPT 34 U/L (7-56); AST/SGOT 19 U/L (15-39); BILIRUBIN,TOTAL 0.4 mg/dL (0.2-1.3); BLOOD UREA NITROGEN 17 mg/dL (7-21); CALCIUM 9.2 mg/dL (8.4-10.5); CARBON DIOXIDE 25 mmol/L (21-33); CHLORIDE 99 mmol/L (95-110); GFR AFRICAN-AMERICAN > 60; GLUCOSE,RANDOM 109 mg/dL (70-110); POTASSIUM 4.6 mmol/L (3.6-5.0); SODIUM 132 mmol/L (132-148); TOTAL PROTEIN 6.4 g/dL (5.8-8.3)
[2017-02-13 07:32] LABS: INR 0.98 (0.93-1.08)
[2017-02-13] MEDS ORDERED: Absorbable Gelatin Sponge Size 100 ONE (09:32)
[2017-02-13] MEDS ORDERED: Lidocaine 1%/Epinephrine 1:100000 30 ml vial ONE (09:32)
[2017-02-13] MEDS ORDERED: cefTRIAXone (Rocephin) 1 gm Inj ONE (09:33)
[2017-02-13] MEDS ORDERED: Midazolam 2 MG/2 ML VIAL ONE (09:45)
[2017-02-13] MEDS ORDERED: Propofol 10 mg/ml Inj (20 ML) ONE ×2 (09:45→11:03)
[2017-02-13] MEDS ORDERED: Lidocaine 2% Inj (20ml) ONE (09:45)
[2017-02-13] MEDS ORDERED: Rocuronium 10 mg/ml (5 ml) ONE ×2 (09:46→10:23)
[2017-02-13] MEDS ORDERED: Thrombin Topical 20,000 Intl Units Spray Kit TOP ONE (10:51)
[2017-02-13] MEDS ORDERED: Neostigmine Methylsulfate 3mg/3ml Syringe IV ONE (10:58)
[2017-02-13] MEDS ORDERED: Glycopyrrolate 0.2 mg/ml (2ml vial) ONE (10:59)
[2017-02-13] MEDS ORDERED: Bacitracin Ointment 30 GM TUBE ONE (11:09)
[2017-02-13] MEDS ORDERED: Morphine 2 mg/ml ISec IVP PRN (11:17)
--- NOTE | 2017-02-13 11:23 | PN ---
DATE: 02/13/2017 REASON FOR CONSULTATION AND FOLLOWUP: Uncontrolled hypertension, postop status post craniotomy, helen kun the tumor from occipital lobe, postop hypertension. BRIEF CLINICAL HISTORY: This is a 61-year-old female with past medical history of headache. CAT sca n shows a mass in the brain, status post craniotomy, removal of tumor from occipital lobe. Postop co urse complicated by hypertension. Now patient is stable, off telemetry. Now she is in 574. Denies any chest pain, shortness of breath, any palpitation. PHYSICAL EXAMINATION: VITAL SIGNS: Temperature afebrile, heart rate 73, blood pressure 121/75. HEENT: PERRLA. Extraocular muscles intact. NECK: Supple. No carotid bruits. No thyromegaly. CHEST: Clear to auscultation. HEART: S1, S2 regular. ABDOMEN: Soft. EXTREMITIES: Clubbing and cyanosis negative. LABORATORY DATA: WBC 8, hemoglobin 14.2, hematocrit 40.9, platelet count 198. Chemistry shows sodiu m 130, potassium 4.____, chloride ____, carbon dioxide 25, anion gap 13, BUN 17, creatinine 0.6. IMPRESSION: Status post craniotomy; hypertension, controlled now; status post removal of occipital l obe tumor. The patient had echocardiography on 02/04/2017 that shows ejection fraction 55%, trace to mild mitral regurgitation, trace to mild tricuspid regurgitation, right ventricular systolic pressur e at 38. RECOMMENDATION: The patient is now normotensive. We will monitor with p.r.n. hydralazine. Will fol low with you. Thank you, Dr. Darby, for providing the opportunity in taking care of the patient. Chica Simon MD cc: [id number] TT: 02/13/2017 11:22:43 Confirmation # [id number] Dictation # [id number] mn
[2017-02-13] MEDS ORDERED: Lactated Ringer's 1,000 ML IV SCH (11:30)
[2017-02-13] MEDS ORDERED: HYDROmorphone 0.5 mg/0.5 ml ISec IVP PRN (11:30)
--- NOTE | 2017-02-13 13:57 | CON ---
DATE: 02/13/2017 The patient is a 61-year-old female who was previously admitted to the ICU 1 week prior and originall y came to the hospital secondary to forgetfulness, memory loss and headaches for several months. The patient was found to have bilateral frontal and cerebellar complex masses with hydrocephalus. The p atient had surgery last week to remove the lesion in the cerebellum and today had scheduled surgery p er neurosurgery to have the 2 frontal masses removed as well with partial craniectomy. The patient w as intubated with general anesthesia with no complications noted per anesthesia, was extubated in the PACU with no complications. Currently seen lying in bed, appropriately answering questions with no acute distress. Vital signs are within normal limits and the patient has no new neurological deficit s. PAST MEDICAL HISTORY: That is known is hypertension, hyperlipidemia and now found to have presumably lung carcinoma. PAST SURGICAL HISTORY: Hysterectomy in the past. SOCIAL HISTORY: The patient was a smoker, roughly [id number] history who currently smokes roughly 4-5 cigarettes a week. No alcohol, no IV drug abuse. FAMILY HISTORY: None. LABORATORY RESULTS: White blood cell count 8, hemoglobin 14, platelet count is 198. Sodium 132, pot assium 4.6, chloride 99, bicarb 25, BUN 17, creatinine is 0.6. INR 0.98. No new imaging. Previous imaging is from prior brain MRI and chest CTs. PHYSICAL EXAMINATION: VITAL SIGNS: Temp 97.7, heart rate 62, blood pressure 148/75, respiratory rate is 22, 96% on room ai r. HEENT: The pupils are equal, round, and reactive to light. The extraocular eye movements are intact . Moist mucous membranes. NECK: No JVD. LUNGS: Clear to auscultation without any rhonchi, rales, or wheezes. CARDIOVASCULAR: S1, S2 is heard without any heaves, murmurs, or thrills. ABDOMEN: Soft, nontender, without any rebound or guarding. EXTREMITIES: Show no pedal edema. SKIN: Shows no rashes. NEUROLOGIC: The patient is alert and oriented x 3 with no focal neurologic deficits. ASSESSMENT AND PLAN: The patient is a 61-year-old female found to have findings of bilateral pulmona ry nodules/masses with presumed metastatic lesion to the brain, 2 frontal lesions and 1 occipital les ion. The patient is status post craniectomy once again today to remove 2 frontal lobe lesions. Curr ently, right now, the patient is alert and oriented x 3 with no focal deficits. The patient will be admitted to the medical ICU for observation tonight, neuro checks q. 1 hour, blood pressure monitorin g to keep the systolic blood pressure less than 160. Monitor for any neurological compromise. Lacta krystyna Ringer's at 75 mL an hour. The patient was cleared by speech. Continue diet later this evening. For pain, the patient does have p.r.n. morphine. Nausea, the patient has Reglan p.r.n. and Zofran. The patient was on Keppra b.i.d. for seizure prophylaxis. That was on hold by Dr. Paz from neur ology, can discuss with Dr. Dr. Paz if further seizure prophylaxis is needed at this time. We pavan l discuss with neurosurgery if a repeat head CT is needed tomorrow and discuss with other, PCP and co nsultants. Deep vein thrombosis prophylaxis, sequential compression devices for right now. TOTAL CRITICAL CARE TIME: 50 minutes. Archie Cotton M.D. cc: [id number] TT: 02/13/2017 13:56:37 Confirmation # [id number] Dictation # [id number] en
--- NOTE | 2017-02-13 13:59 | OP ---
PROCEDURE DATE: 02/13/2017 PREOPERATIVE DIAGNOSIS: Bifrontal presumed metastatic brain tumors. POSTOPERATIVE DIAGNOSIS: Bifrontal presumed metastatic brain tumors. PROCEDURE: Bifrontal craniotomy, excision of bilateral anterior frontal tumors. SURGEON: Craig Ward MD CREAM SEPARATOR OPERATOR: Lisandro Linn MD ANESTHESIA: General endotracheal. ESTIMATED BLOOD LOSS: 100 mL. COMPLICATIONS: None. JUSTIFICATION: The patient presented with a change in mental status, was noted to unfortunately have probable metastatic lung cancer, very large cystic lesion in the posterior fossa and 2 large cystic lesions bifrontally. She underwent successful excision of the cerebellar lesion several days ago and was brought to the OR for excision of these very large lesions that were causing considerable mass e ffect. The nature of this procedure, the rationale behind it, alternatives, potential risks, complic ations, realistic chance of success, recovery time discussed with her at length, all her questions we re answered. She fully understood all the above and elected to proceed as offered. PROCEDURE: The patient was taken to the operating room. She was intubated, anesthetized, placed on the OR table in the supine position, head placed on a donut and slightly elevated. Approximately 2 c m to the anterior hairline was hair clipped. This area was then scrubbed with acetone scrub, painted and draped in the usual sterile fashion. Incision was traced out, bicoronal flap starting from the mid temporalis crossing again just posterior to the hairline across the frontal region to the other m id temporalis. This was infiltrated with 1% lidocaine with epinephrine. After prepping and draping, the incision was made with a 10 blade knife, carried down to the level of the temporalis fascia and the skull medially. Ivan clips were placed on the bleeding skin edges. The flap was then reflected inferiorly and fixated in place just above the level of the frontal air s inus. Bovie cautery was then used to incise the periosteum which was reflected down with a periostea l elevator and kept intact vascularized. Ceramic Capacitor Processor was then used to make 2 bur holes on either side of the midline in the inferior frontal region and then also more superior, approximately 3 or 4 cm s uperiorly. The dura was reflected off the inner table and particularly, we cleared a path overlying the frontal sinus. The craniotome was then used to elevate this flap. Bleeding was controlled with thrombinated Gelfoam. At this point, the dura was first opened on the left side. A small flap was created. Bulging brain was immediately encountered. Bipolar was used to perform a small corticectomy and we immediately enc ountered abnormal tissue followed by a gush of cystic fluid. A very large cavity immediately present ed itself. We removed any and all obvious tumor from the johnson of the cavity. This tracked back all the way to the ventricle consistent with the MRI. Some specimen was sent. Hemostasis was then achieved with bipolar cautery and the johnson were lined with Gelfoam, Surgicel and a cotton ball was temporarily placed in the cavity. At this point, we turned our attention to the right side where the tumor was less cystic, smaller and more inferior. We performed the appropriate corticectomy thusly, again with the bipolar. We encoun tered abnormal tumor with cystic fluid again quite quickly. This was removed again with a bipolar hidalgo ction technique until the johnson looked like edematous white matter. Bleeding was controlled with aga in bipolar cautery, thrombinated Gelfoam and Surgicel. At this point, we removed the cotton ball. We asked the anesthesiologist to elevate the blood pressu re to above 120 systolic, which he did. There was no bleeding noted. The cavities were then further filled with liquid thrombin. The dura was very difficult to attempt to put back. We therefore placed a lining of solid Gelfoam fo llowed by flapping the vascularized periosteum directly backwards into the epidural space covering th e Gelfoam. We then replaced the bone flap with 4 CranioFix plates covering all the bur holes again m aintaining the vascularity i.e. connection of the periosteal graft. CranioFix plates were locked aldair dino. Ivan clips were removed. The skin flap was flapped backwards superiorly, galea closed using interru pted 3-0 Vicryl, the skin closed with irma. Bacitracin ointment placed on the suture line and an adherent Telfa dressing was placed. The patient was then extubated without difficulty, noted to be talking, following commands, moving al l [address] to recovery room. All counts were correct. There were no complications. Craig Ward MD cc: [id number] TT: 02/13/2017 13:58:53 sn
[2017-02-13] MEDS ORDERED: Metoprolol 1 mg/ml Inj IVP PRN (15:29)
[2017-02-13 16:18] LABS: HEMATOCRIT 42.4 % (36.0-48.0); MEAN CELL VOLUME 90.6 fL (80.0-105.0); MEAN CORPUSCULAR HEMOGLOBIN 32.1 pg (25.0-35.0); MEAN CORPUSCULAR HGB CONC 35.4 g/dl (31.0-37.0); MEAN PLATELET VOLUME 9.6 fl (7.0-11.0); RED CELL DISTRIBUTION WIDTH 12.7 % (11.5-14.5); WHITE BLOOD COUNT 14.4 10^3/ul (4.5-11.0)
[2017-02-13 16:25] LABS: ALB/GLOB RATIO 1.1 (1.1-1.8); ALKALINE PHOSPHATASE 60 U/L (38-133); ALT/SGPT 31 U/L (7-56); AST/SGOT 17 U/L (15-39); BILIRUBIN,TOTAL 0.6 mg/dL (0.2-1.3); BLOOD UREA NITROGEN 17 mg/dL (7-21); CALCIUM 9.2 mg/dL (8.4-10.5); CARBON DIOXIDE 30 mmol/L (21-33); CHLORIDE 98 mmol/L (98-107); GFR AFRICAN-AMERICAN > 60; GLUCOSE,RANDOM 105 mg/dL (70-110); POTASSIUM 4.6 mmol/L (3.6-5.0); SODIUM 133 mmol/L (132-148); TOTAL PROTEIN 6.7 g/dL (5.8-8.3)
--- NOTE | 2017-02-14 00:15 | PN ---
DATE: 02/13/2017 REFERRING PHYSICIAN: Dr. Darby. SUBJECTIVE: She is examined and seen in the recovery room status post craniotomy and resection of th e left frontal tumor. She is fully awake and alert. No cough, no sputum production, no nausea, no v omiting, diarrhea. No leg pain or leg swelling. OBJECTIVE: GENERAL: No acute distress. VITAL SIGNS: Temperature is 98, heart rate is 64, respiratory rate is 20, blood pressure 132/76, pul se ox 100% on nasal cannula. HEENT: Moist mucous membrane. No ulcer or oral thrush noted. NECK: Supple, no JVD. Has a dressing on the . LUNGS: Has a fair airflow with few rhonchi. HEART: S1, S2. ABDOMEN: Soft, nontender. No organomegaly. EXTREMITIES: There is no edema. NEUROLOGIC: Arousable, follows simple command. MEDICATIONS: She is on hydralazine 10 mg q. 8 hours p.r.n., Decadron 4 mg q. 8 hours, DuoNeb q. 6 ho urs, Keppra 500 mg twice a day, metoprolol tartrate 5 mg q. 2 hours p.r.n., also morphine 2 mg q. 4 h ours p.r.n., potassium supplement, Protonix 40 mg IV daily, Reglan 5 mg q. 6 hours p.r.n., Tylenol p. r.n., Zofran on a p.r.n. basis. LABORATORY DATA: Shows hemoglobin 16.0, hematocrit 42.4, WBC 14.4, platelet is 201. INR is 0.98. P TT is 26. Sodium 133, potassium 4.6, chloride 98, bicarbonate 30, BUN 17, creatinine 0.8, glucose 10 5, calcium is 9.2. AST 17, ALT 35, alkaline phosphatase is 60, albumin is 3.5. The pathology/cytolo gy report for previous craniotomy shows suboccipital tumor fluid positive for malignant cells consist ent with the patient's metastatic adenocarcinoma. IMPRESSION AND PLAN: Metastatic adenocarcinoma involving the cranium, cerebellum area, requiring res ection, now has a left frontal craniotomy for resection of tumor, also having 2 lung nodules both upp er lobes, chronic obstructive lung disease, hypertension. I spoke to nursing staff. Keep head eleva krystyna at 45 degree. Continue bronchodilator. Gastric prophylaxis. Sequential compression device to l ower extremity. Close neuro checkups. Will need to involve oncology. We will follow with you. Chica Palmer MD cc: [phone] TT: 02/14/2017 00:14:52 Confirmation # [id number] Dictation # [id number] tn
[2017-02-14] MEDS: Albuterol-Ipratrop 3 mg / 0.5 (3 ml) UD IH SCH ×4 (02:50→19:37)
[2017-02-14] MEDS: Pantoprazole 40mg/100ml IVPB 100 ML IVPB SCH (06:25)
[2017-02-14] MEDS: Dexamethasone 4 mg/1 ml IVP SCH ×3 (06:25→22:23)
[2017-02-14 07:57] LABS: ADD MANUAL DIFF? NO
[2017-02-14 08:08] LABS: GRAN # 13.17 (1.4-6.5); GRAN % 90.7 % (50.0-68.0); LYMPH # 0.6 (1.2-3.4); LYMPH % 4.1 % (22.0-35.0); MEAN CELL VOLUME 89.7 fL (80.0-105.0); MEAN CORPUSCULAR HEMOGLOBIN 31.4 pg (25.0-35.0); MEAN PLATELET VOLUME 9.3 fl (7.0-11.0); MONO # 0.8 (0.1-0.6); MONO % 5.2 % (1.0-6.0); PLATELET COUNT 187 10^3/uL (120.0-450.0); RED CELL DISTRIBUTION WIDTH 12.7 % (11.5-14.5); WHITE BLOOD COUNT 14.5 10^3/ul (4.5-11.0)
--- NOTE | 2017-02-14 08:16 | PN ---
DATE: 02/13/2017 SUBJECTIVE: The patient looks comfortable status post surgery by Dr. olsen . Is extubated, saying a few words. Looks comfortable. No nausea, vomiting, diarrhea. No hematuria or hematochezia. No swelling of the legs. PHYSICAL EXAMINATION: VITAL SIGNS: Temperature 97.7, pulse 62, blood pressure 114/77, respiratory rate 22. HEENT: Head has dressing on the front and back. Atraumatic. Eyes PERRLA. Extraocular muscles intact. Conjunctivae pink. Conjunctivae clear. Eyelids unremarkable. Nose patent. Mucous membranes moist. NECK: Supple. No carotid bruit, JVD or thyromegaly. CHEST: Bilaterally symmetrical. HEART: S1, S2 positive. LUNGS: Clear to auscultation without any rhonchi rales and wheezing. ABDOMEN: Soft, nontender. No organomegaly. EXTREMITIES: No edema, no cyanosis. NEUROLOGIC: The patient is alert, oriented x 3, moving all 4 extremities. No focal deficit. LABORATORY DATA: White blood cells 8, hemoglobin 14, platelets 198. Sodium 132 , potassium 4.6, BUN 17, creatinine 0.6. MEDICATIONS: Hydralazine, dexamethasone, Decadron, Keppra, potassium, Protonix , Reglan, Zofran. ASSESSMENT AND PLAN: The patient is a 61-year-old lady status post craniotomy both front and the back, hypertension controlled. The patient had echocardiography done. It shows ejection fraction 55%. The patient's blood pressure is well controlled. Continue hydralazine. After surgery, patient is admitted back to the unit. She was previously in the unit 1 week ago with cerebellar complex masses with hydrocephalus. The patient had surgery today with for removal of masses on the frontal lobe. The patient was intubated, had general anesthesia with no complications noted per anesthesia. Was extubated in post anesthesia care unit with no complications. History of hypercholesterolemia, lung densities, densities came like metastases of adenocarcinoma originating from the lungs. The patient will stay in the unit this night and neuro check every hour. Blood pressure monitoring. Keep the systolic blood pressure less than 160. watch of her neurological compromise. The patient has clear speech. Continue diet later on this evening. Continue morphine for pain. For nauseous, Reglan and Zofran. Continue Keppra for seizure prophylaxis. Deep vein thrombosis prophylaxis with sequential compression devices to the extremities. Gastrointestinal prophylaxis. Oncologist is on the case. We will follow up. Yaneth Darby MD cc: [id number] TT: 02/13/2017 15:58:21 Confirmation # [id number] Dictation # [id number] sn MTDD
[2017-02-14 08:26] LABS: ALKALINE PHOSPHATASE 56 U/L (38-133); ALT/SGPT 25 U/L (7-56); AST/SGOT 17 U/L (15-39); BILIRUBIN,TOTAL 0.7 mg/dL (0.2-1.3); BLOOD UREA NITROGEN 18 mg/dL (7-21); CALCIUM 9.2 mg/dL (8.4-10.5); CARBON DIOXIDE 29 mmol/L (21-33); CHLORIDE 97 mmol/L (98-107); GFR AFRICAN-AMERICAN > 60; GLUCOSE,RANDOM 106 mg/dL (70-110); MAGNESIUM 2.1 mg/dL (1.7-2.2); PHOSPHOROUS 4.6 mg/dL (2.5-4.5); POTASSIUM 4.5 mmol/L (3.6-5.0); SODIUM 134 mmol/L (132-148); TOTAL PROTEIN 6.3 g/dL (5.8-8.3)
--- NOTE | 2017-02-14 09:28 | CT ---
PROCEDURE: CT HEAD WITHOUT CONTRAST. HISTORY: post crainectomy COMPARISON: Comparison is made to the previous CT dated 02/02/2017 previous MRI dated 02/02/2017 TECHNIQUE: Axial computed tomography images were obtained through the head/brain without intravenous contrast. Radiation dose: Total exam DLP = 757.88 mGy-cm. FINDINGS: HEMORRHAGE: Foci of high attenuation seen at the bifrontal lobe at the mid and lower portion of the frontal lobes adjacent to foci of air consistent with postsurgical changes. The largest focus of high attenuation seen at the parasagittal right frontal lobe inferiorly measures 1.9 centimeter in the transverse diameter. BRAIN: Postsurgical changes and foci of intraparenchymal air in the bifrontal lobe adjacent to foci of high attenuation consistent with postsurgical changes. Postsurgical changes are also seen at the right cerebellum adjacent to parasagittal craniectomy on the right side. There is mass effect on the lateral ventricles frontal horns left more than right. There is effacement of the sulci especially in the frontal and temporal lobes. Bibasilar Systane are smaller in size compared to the previous exam. Findings suggestive of mild increased intracranial pressure. The 4th ventricle is seen at the midline this study. VENTRICLES: The lateral ventricles are slightly smaller in size compared to the previous exam. CALVARIUM: Bifrontal craniectomies and postsurgical changes are seen. There is also right parasagittal occipital craniotomy. Postsurgical changes seen in the scalp especially at the temporal and frontal regions. PARANASAL SINUSES: Unremarkable as visualized. No significant inflammatory changes. MASTOID AIR CELLS: Unremarkable as visualized. No inflammatory changes. OTHER FINDINGS: None. IMPRESSION: Two adjacent foci of high attenuation seen at the bilateral frontal lobes consistent with postsurgical changes . The largest focus measures approximately 1.9 centimeter in transverse diameter. Adjacent moderate amount of intraparenchymal air also consistent with postsurgical changes. Postsurgical changes at the right cerebellum. [id number] effacement of the supratentorial sulci suggestive of mild increased intracranial pressure. The lateral ventricles and the basilar cistern appear slightly smaller compared to the previous exam. Continuous follow-up reassessment is recommended.
--- NOTE | 2017-02-14 10:08 | CP.PCM.PN ---
Subjective - Date & Time of Evaluation Date of Evaluation: 02/14/17 Time of Evaluation: 10:07 - Subjective Subjective: post op day 1 fully awake alert oriented c/o mild VALENCIA no motor weakness no drift no sensory deficit doing well ok to transfer to floor cont Decadron Objective - Vital Signs/Intake and Output Vital Signs (last 24 hours): Temp Pulse Resp BP Pulse Ox 98.7 F 65 15 142/60 100 02/14/17 08:00 02/14/17 05:00 02/14/17 05:00 02/14/17 05:00 02/13/17 23:01 Intake and Output: 02/14/17 02/14/17 06:59 18:59 Intake Total 1100 Output Total 1000 Balance 100 - Medications Medications: Current Medications Acetaminophen (Tylenol 325mg Tab) 650 mg PO Q4H PRN PRN Reason: Headache Last Admin: 02/13/17 16:00 Dose: 650 mg Albuterol/Ipratropium (Duoneb 3 Mg/0.5 Mg (3 Ml) Ud) 3 ml IH [id number] [facility] Last Admin: 02/14/17 07:28 Dose: Not Given Dexamethasone (Decadron Inj) 4 mg IVP Q8 [facility] Last Admin: 02/14/17 06:25 Dose: 4 mg Hydralazine HCl (Apresoline) 10 mg PO QID PRN PRN Reason: FOR SBOP>150 and diastolic>90 Last Admin: 02/08/17 09:33 Dose: 10 mg Pantoprazole Sodium (Protonix 40mg Ivpb) 100 mls @ 200 mls/hr IVPB 0600 [facility] Last Admin: 02/14/17 06:25 Dose: 200 mls/hr Levetiracetam (Keppra) 500 mg PO BID [facility] Last Admin: 02/13/17 12:36 Dose: 500 mg Metoclopramide HCl (Reglan) 5 mg IVP Q6 PRN PRN Reason: Nausea/Vomiting Last Admin: 02/08/17 08:40 Dose: 5 mg Metoprolol Tartrate (Lopressor) 5 mg IVP Q2 PRN PRN Reason: sbp>180 Morphine Sulfate (Morphine) 2 mg IVP Q4H PRN PRN Reason: Pain, moderate (4-7) Last Admin: 02/13/17 14:23 Dose: 2 mg Ondansetron HCl (Zofran Inj) 4 mg IVP Q4H PRN PRN Reason: Nausea/Vomiting Last Admin: 02/08/17 08:40 Dose: 4 mg - Labs Labs: 02/14/17 07:45 02/14/17 07:45 PT 10.6 Seconds (9.9-11.8) 02/13/17 06:30 INR 0.98 (0.93-1.08) 02/13/17 06:30 APTT 26.0 Seconds (23.7-30.8) 02/13/17 06:30
--- NOTE | 2017-02-14 10:58 | CP.CCUPN ---
<Lisa Chua - Last Filed: 02/14/17 11:09> CCU Subjective - Physician Review Events Since Last Encounter (Free Text): 02/14/17 10:55 Patient seen and examined bedside. No acute events overnight. Patient admits to mild headache. Denies visual disturbance, CP, SOB, abd pain. States she would like to eat. Critical Care Time Spent (in minutes): 35 CCU Objective - Vital Signs / Intake & Output Vital Signs (Last 4 hours): Vital Signs Temp Pulse 02/14/17 08:43 83 02/14/17 08:00 98.7 F Intake and Output (Last 8hrs): Intake & Output 02/13/17 02/14/17 02/14/17 22:59 06:59 14:59 Intake Total 650 1100 Output Total 500 1000 Balance 150 100 Weight 150 lb 12.8 oz Intake: IV 450 1000 Right Forearm 100 Left Antecubital 450 900 Oral 200 100 Output: Urine 500 1000 Urine, Voided 500 1000 Other: Voiding Method Indwelling Catheter Indwelling Catheter # Bowel Movements 0 - Physical Exam Head: Positive for: Tenderness, Swelling, Other (Dressing C/D/I) Pupils: Positive for: PERRL Extroacular Muscles: Positive for: EOMI Conjunctiva: Positive for: Normal Ears: Positive for: NORMAL TM, Normal Canal. Negative for: Erythema Mouth: Positive for: Moist Mucous Membranes Pharnyx: Negative for: ERYTHEMA, EXUDATE, TONSILS ENLARGED Neck: Positive for: Normal Range of Motion Respiratory/Chest: Positive for: Clear to Auscultation, Good Air Exchange, Decreased Breath Sounds. Negative for: Respiratory Distress, Accessory Muscle Use Cardiovascular: Positive for: Regular Rate and Rhythm, Normal S1, S2. Negative for: Murmurs Abdomen: Positive for: Normal Bowel Sounds. Negative for: Tenderness, Distention, Peritoneal Signs, Rebound, Guarding Upper Extremity: Positive for: Normal Inspection, Neurovascularly Intact. Negative for: Cyanosis, Edema Lower Extremity: Positive for: Normal Inspection, Neurovascularly Intact, Capillary Refill < 2 s. Negative for: Edema Neurological: Positive for: GCS=15, CN II-XII Intact, Speech Normal, Motor Func Grossly Intact, Normal Cerebellar Funct Skin: Positive for: Warm, Dry, Normal Color. Negative for: Rashes Psychiatric: Positive for: Alert, Oriented x 3, Normal Insight, Normal Concentration - Medications Active Medications: Active Medications Generic Name Dose Route Start Last Admin Trade Name Freq PRN Reason Stop Dose Admin Acetaminophen 650 mg 02/02/17 19:26 02/13/17 16:00 Tylenol 325mg Tab PO 650 mg Q4H PRN Administration Headache Albuterol/Ipratropium 3 ml 02/05/17 02:00 02/14/17 07:28 Duoneb 3 Mg/0.5 Mg (3 Ml) Ud IH Not Given [id number] JACQUIE Dexamethasone 4 mg 02/02/17 22:00 02/14/17 06:25 Decadron Inj IVP 4 mg Q8 JACQUIE Administration Hydralazine HCl 10 mg 02/07/17 11:39 02/08/17 09:33 Apresoline PO 10 mg QID PRN Administration FOR SBOP>150 and diastolic>90 Pantoprazole Sodium 100 mls @ 200 mls/hr 02/08/17 06:00 02/14/17 06:25 Protonix 40mg Ivpb IVPB 200 mls/hr 0600 JACQUIE Administration Levetiracetam 500 mg 02/03/17 10:00 02/14/17 10:05 Keppra PO 500 mg BID JACQUIE Administration Metoclopramide HCl 5 mg 02/07/17 16:43 02/08/17 08:40 Reglan IVP 5 mg Q6 PRN Administration Nausea/Vomiting Metoprolol Tartrate 5 mg 02/13/17 15:29 Lopressor IVP Q2 PRN sbp>180 Morphine Sulfate 2 mg 02/13/17 11:17 02/13/17 14:23 Morphine IVP 2 mg Q4H PRN Administration Pain, moderate (4-7) Ondansetron HCl 4 mg 02/07/17 14:39 02/08/17 08:40 Zofran Inj IVP 4 mg Q4H PRN Administration Nausea/Vomiting - Patient Studies Lab Studies: Lab Studies 02/14/17 02/13/17 Range/Units 07:45 16:12 WBC 14.5 H 14.4 H D (4.5-11.0) 10^3/ul RBC 4.46 4.68 (3.5-6.1) 10^6/uL Hgb 14.0 15.0 (12.0-16.0) gm/dL Hct 40.0 42.4 (36.0-48.0) % MCV 89.7 90.6 (80.0-105.0) fL MCH 31.4 32.1 (25.0-35.0) pg MCHC 35.0 35.4 (31.0-37.0) g/dl RDW 12.7 12.7 (11.5-14.5) % Plt Count 187 201 (120.0-450.0) 10^3/uL MPV 9.3 9.6 (7.0-11.0) fl Gran % 90.7 H (50.0-68.0) % Lymph % (Auto) 4.1 L (22.0-35.0) % [place] % (Auto) 5.2 (1.0-6.0) % Eos % (Auto) 0.0 L (1.5-5.0) % Baso % (Auto) 0.0 (0.0-3.0) % Gran # 13.17 H (1.4-6.5) Lymph # 0.6 L (1.2-3.4) [place] # 0.8 H (0.1-0.6) Eos # 0.0 (0.0-0.7) Baso # 0.00 (0.0-2.0) K/mm3 Sodium 134 133 (132-148) mmol/L Potassium 4.5 4.6 (3.6-5.0) mmol/L Chloride 97 L 98 (98-107) mmol/L Carbon Dioxide 29 30 (21-33) mmol/L Anion Gap 13 10 (10-20) BUN 18 17 (7-21) mg/dL Creatinine 0.7 0.8 (0.5-1.4) mg/dL Est GFR ( Amer) > 60 > 60 Est GFR (Non-Af Amer) > 60 > 60 Random Glucose 106 105 (70-110) mg/dL Calcium 9.2 9.2 (8.4-10.5) mg/dL Phosphorus 4.6 H (2.5-4.5) mg/dL Magnesium 2.1 (1.7-2.2) mg/dL Total Bilirubin 0.7 0.6 (0.2-1.3) mg/dL AST 17 17 (15-39) U/L ALT 25 31 (7-56) U/L Alkaline Phosphatase 56 60 (38-133) U/L Total Protein 6.3 6.7 (5.8-8.3) g/dL Albumin 3.1 3.5 (3.0-4.8) g/dL Globulin 3.1 3.2 gm/dL Albumin/Globulin Ratio 1.0 L 1.1 (1.1-1.8) Laboratory Results - last 24 hr 02/13/17 02/14/17 16:12 07:45 WBC 14.4 H D 14.5 H RBC 4.68 4.46 Hgb 15.0 14.0 Hct 42.4 40.0 MCV 90.6 89.7 MCH 32.1 31.4 MCHC 35.4 35.0 RDW 12.7 12.7 Plt Count 201 187 MPV 9.6 9.3 Gran % 90.7 H Lymph % (Auto) 4.1 L [place] % (Auto) 5.2 Eos % (Auto) 0.0 L Baso % (Auto) 0.0 Gran # 13.17 H Lymph # 0.6 L [place] # 0.8 H Eos # 0.0 Baso # 0.00 Sodium 133 134 Potassium 4.6 4.5 Chloride 98 97 L Carbon Dioxide 30 29 Anion Gap 10 13 BUN 17 18 Creatinine 0.8 0.7 Est GFR ( Amer) > 60 > 60 Est GFR (Non-Af Amer) > 60 > 60 Random Glucose 105 106 Calcium 9.2 9.2 Phosphorus 4.6 H Magnesium 2.1 Total Bilirubin 0.6 0.7 AST 17 17 ALT 31 25 Alkaline Phosphatase 60 56 Total Protein 6.7 6.3 Albumin 3.5 3.1 Globulin 3.2 3.1 Albumin/Globulin Ratio 1.1 1.0 L Review of Systems - Constitutional Constitutional: absent: Fever, Chills - EENT Eyes: absent: Blurred Vision, Change in Vision Ears: absent: Disequilibrium, Dizziness - Cardiovascular Cardiovascular: absent: Chest Pain, Dyspnea, Palpitations - Respiratory Respiratory: absent: Cough, Dyspnea, Pain on Inspiration - Gastrointestinal Gastrointestinal: Nausea (mild, controlled w zofran and reglan). absent: Abdominal Pain, Constipation, Diarrhea, Vomiting - Genitourinary Genitourinary: absent: Dysuria - Neurological Neurological: Headaches (mild, frontal). absent: Dizziness - Psychiatric Psychiatric: absent: Confusion Critical Care Progress Note - Ventilator Checklist PUD Prophalyxis: Yes DVT Prophylaxis: Yes - Nutrition Nutrition: Nutrition Category Date Time Status Heart Healthy Diet [DIET] Diets 02/14/17 Breakfast Ordered Assessment/Plan - Assessment and Plan (Free Text) Assessment: 61 yo F w h/o HTN, HLD, COPD, tob abuse, lung CA POD #1 s/p bifrontal craniotomy with excision of BL anterior frontal tumors. Plan: Neuro: POD#1 s/p bifrontal craniotomy with excision of BL anterior frontal tumors. Decadron as per neurosurgery HOB>[address] head without contrast done today shows mild-moderate effacement of supratentorial sulci suggestive of mild increased intracranial pressure. Lateral ventricles and basilar cistern appear slightly smaller CV: HD stable. PRN Lopressor and hydralazine - has not needed Pulm: Comfortable and saturating well on RA. Continue to monitor. Maintain SpO2> 90 GI: GI ppx. Regaln and Zofran PRN n/v : DC rhodes Endo: A1C 5.4. No acute issues. ID: WBC 14.5 - likely reactive post-op; and 2/2 steroids. Afebrile. Continue to monitor for signs of infection. Renal: Renal function stable. Continue to monitor Heme: Hb stable. No signs of bleedings DVT/GI ppx: Protonix, HHD, SCD's, PT/OT Dispo: Transfer to med/surg - Date & Time Date: 02/14/17 Time: 11:00 <Donnell Trimble - Last Filed: 02/14/17 12:03> CCU Objective - Vital Signs / Intake & Output Vital Signs (Last 4 hours): Vital Signs Pulse 02/14/17 08:43 83 Intake and Output (Last 8hrs): Intake & Output 02/13/17 02/14/17 02/14/17 22:59 06:59 14:59 Intake Total 650 1100 Output Total 500 1000 Balance 150 100 Weight 150 lb 12.8 oz Intake: IV 450 1000 Right Forearm 100 Left Antecubital 450 900 Oral 200 100 Output: Urine 500 1000 Urine, Voided 500 1000 Other: Voiding Method Indwelling Catheter Indwelling Catheter # Bowel Movements 0 - Medications Active Medications: Active Medications Generic Name Dose Route Start Last Admin Trade Name Freq PRN Reason Stop Dose Admin Acetaminophen 650 mg 02/02/17 19:26 02/13/17 16:00 Tylenol 325mg Tab PO 650 mg Q4H PRN Administration Headache Acetaminophen/Codeine Phosphate 5 ml 02/14/17 10:59 Tylenol/Codeine Elixir PO 02/21/17 11:00 Q6H PRN Pain, moderate (4-7) Albuterol/Ipratropium 3 ml 02/05/17 02:00 02/14/17 07:28 Duoneb 3 Mg/0.5 Mg (3 Ml) Ud IH Not Given [id number] JACQUIE Dexamethasone 4 mg 02/02/17 22:00 02/14/17 06:25 Decadron Inj IVP 4 mg Q8 JACQUIE Administration Hydralazine HCl 10 mg 02/07/17 11:39 02/08/17 09:33 Apresoline PO 10 mg QID PRN Administration FOR SBOP>150 and diastolic>90 Pantoprazole Sodium 100 mls @ 200 mls/hr 02/08/17 06:00 02/14/17 06:25 Protonix 40mg Ivpb IVPB 200 mls/hr 0600 JACQUIE Administration Levetiracetam 500 mg 02/03/17 10:00 02/14/17 10:05 Keppra PO 500 mg BID JACQUIE Administration Metoclopramide HCl 5 mg 02/07/17 16:43 02/08/17 08:40 Reglan IVP 5 mg Q6 PRN Administration Nausea/Vomiting Metoprolol Tartrate 5 mg 02/13/17 15:29 Lopressor IVP Q2 PRN sbp>180 Ondansetron HCl 4 mg 02/07/17 14:39 02/08/17 08:40 Zofran Inj IVP 4 mg Q4H PRN Administration Nausea/Vomiting - Patient Studies Lab Studies: Lab Studies 02/14/17 02/13/17 Range/Units 07:45 16:12 WBC 14.5 H 14.4 H D (4.5-11.0) 10^3/ul RBC 4.46 4.68 (3.5-6.1) 10^6/uL Hgb 14.0 15.0 (12.0-16.0) gm/dL Hct 40.0 42.4 (36.0-48.0) % MCV 89.7 90.6 (80.0-105.0) fL MCH 31.4 32.1 (25.0-35.0) pg MCHC 35.0 35.4 (31.0-37.0) g/dl RDW 12.7 12.7 (11.5-14.5) % Plt Count 187 201 (120.0-450.0) 10^3/uL MPV 9.3 9.6 (7.0-11.0) fl Gran % 90.7 H (50.0-68.0) % Lymph % (Auto) 4.1 L (22.0-35.0) % [place] % (Auto) 5.2 (1.0-6.0) % Eos % (Auto) 0.0 L (1.5-5.0) % Baso % (Auto) 0.0 (0.0-3.0) % Gran # 13.17 H (1.4-6.5) Lymph # 0.6 L (1.2-3.4) [place] # 0.8 H (0.1-0.6) Eos # 0.0 (0.0-0.7) Baso # 0.00 (0.0-2.0) K/mm3 Sodium 134 133 (132-148) mmol/L Potassium 4.5 4.6 (3.6-5.0) mmol/L Chloride 97 L 98 (98-107) mmol/L Carbon Dioxide 29 30 (21-33) mmol/L Anion Gap 13 10 (10-20) BUN 18 17 (7-21) mg/dL Creatinine 0.7 0.8 (0.5-1.4) mg/dL Est GFR ( Amer) > 60 > 60 Est GFR (Non-Af Amer) > 60 > 60 Random Glucose 106 105 (70-110) mg/dL Calcium 9.2 9.2 (8.4-10.5) mg/dL Phosphorus 4.6 H (2.5-4.5) mg/dL Magnesium 2.1 (1.7-2.2) mg/dL Total Bilirubin 0.7 0.6 (0.2-1.3) mg/dL AST 17 17 (15-39) U/L ALT 25 31 (7-56) U/L Alkaline Phosphatase 56 60 (38-133) U/L Total Protein 6.3 6.7 (5.8-8.3) g/dL Albumin 3.1 3.5 (3.0-4.8) g/dL Globulin 3.1 3.2 gm/dL Albumin/Globulin Ratio 1.0 L 1.1 (1.1-1.8) Laboratory Results - last 24 hr 02/13/17 02/14/17 16:12 07:45 WBC 14.4 H D 14.5 H RBC 4.68 4.46 Hgb 15.0 14.0 Hct 42.4 40.0 MCV 90.6 89.7 MCH 32.1 31.4 MCHC 35.4 35.0 RDW 12.7 12.7 Plt Count 201 187 MPV 9.6 9.3 Gran % 90.7 H Lymph % (Auto) 4.1 L [place] % (Auto) 5.2 Eos % (Auto) 0.0 L Baso % (Auto) 0.0 Gran # 13.17 H Lymph # 0.6 L [place] # 0.8 H Eos # 0.0 Baso # 0.00 Sodium 133 134 Potassium 4.6 4.5 Chloride 98 97 L Carbon Dioxide 30 29 Anion Gap 10 13 BUN 17 18 Creatinine 0.8 0.7 Est GFR ( Amer) > 60 > 60 Est GFR (Non-Af Amer) > 60 > 60 Random Glucose 105 106 Calcium 9.2 9.2 Phosphorus 4.6 H Magnesium 2.1 Total Bilirubin 0.6 0.7 AST 17 17 ALT 31 25 Alkaline Phosphatase 60 56 Total Protein 6.7 6.3 Albumin 3.5 3.1 Globulin 3.2 3.1 Albumin/Globulin Ratio 1.1 1.0 L Critical Care Progress Note - Nutrition Nutrition: Nutrition Category Date Time Status Heart Healthy Diet [DIET] Diets 02/14/17 Breakfast Ordered Attending/Attestation - Attestation I have personally seen and examined this patient.: Yes I have fully participated in the care of the patient.: Yes I have reviewed all pertinent clinical information: Yes Notes (Text): 02/14/17 12:01 The patient was seen and examined at the bedside. Patient care was discussed with resident Medical records, lab studies, and imaging were reviewed and management issues were discussed and formulated. Last 24H events reviewed. Agree with above treatment plans as outlined in 's note with addition of the following: -pt remains hemodynamically stable and comfortable on room air in NAD. No events overnight. No notable neurological deficits on exam -PT\OT eval -heme\onc eval -neurology f\u -continue neuro checks -repeat imaging as per neurosurgical team who are following closely CCM f\u 25min
[2017-02-14] MEDS ORDERED: Acetaminophen/Codeine elixir 120-12mg/5ml PO PRN (10:59)
--- NOTE | 2017-02-14 12:48 | PN ---
DATE: 02/14/2017 REASON FOR CONSULTATION AND FOLLOWUP: Uncontrolled hypertension, status post craniotomy, removal of tumor occipital lobe, status post redo surgery for removal of tumor from the frontal lobe bilaterally . BRIEF CLINICAL HISTORY: This is a 61-year-old female with a past medical history significant for hea dache. CAT scan shows a mass in the brain. The patient underwent status post craniotomy and removal of tumor from occipital lobe. Yesterday, the patient underwent bilateral frontal lobe lobectomy, no w in the ICU. Postop hemodynamically stable. Denies any chest pain, shortness of breath, any palpit ation. PHYSICAL EXAMINATION: VITAL SIGNS: Temperature afebrile, heart rate 65, blood pressure 142/60. HEENT: PERRLA. Extraocular muscles intact. NECK: Supple. No carotid bruits. No thyromegaly. CHEST: Clear to auscultation. HEART: S1, S2 regular. ABDOMEN: Soft. EXTREMITIES: Clubbing and cyanosis negative. LABORATORY DATA: WBC 14.5, hemoglobin 14, hematocrit 40.0, platelet count 187. Chemistry shows sodi um 134, potassium 4.5, chloride 97, carbon dioxide 29, anion gap of 13, BUN 18, creatinine 0.7, total protein 6.8, albumin 3.5, albumin/globulin ratio 1. IMPRESSION: History of hypertension, hyperlipidemia, metastatic adenocarcinoma, possibly originating from the lung, status post removal of 2 tumors from the occipital lobe. Yesterday, the patient unde rwent craniotomy for the frontal lobectomy. Postoperative course, the patient hemodynamically stable . Preoperative echo shows ejection fraction 55%, trace to mild mitral regurgitation, trace to mild t ricuspid regurgitation, right ventricular systolic pressure 38. RECOMMENDATION: Continue metoprolol, continue hydralazine p.r.n. The patient is on steroid, on Deca dron 4 mg IV q. 8 hours. We will monitor closely. As the patient is on Decadron, that may increase the blood pressure, so we will continue p.r.n. hydralazine. Depending on whether the hydralazine ___ _, we will restart lisinopril. We will follow with you. Thank you, Dr. Darby, for providing us the opportunity in taking care of the patient. Chica Simon MD cc: [id number] TT: 02/14/2017 12:47:31 Confirmation # [id number] Dictation # [id number] tn
--- NOTE | 2017-02-14 20:22 | PN ---
DATE: 02/14/2017 SUBJECTIVE: The patient seen and examined on the bedside in the unit. Right- sided IV is swollen. The patient can barely open the eye. No nausea, vomiting , or diarrhea. No hematuria or hematochezia. No chest pain, no palpitations. Postoperative day #1. Fully awake and alert. Complaining of mild headache. No motor weakness, no drift, no sensory deficit, doing well. Neurosurgeon gave permission to transfer the patient to the floor. Continue Decadron. PHYSICAL EXAMINATION: VITAL SIGNS: Temperature 98.7, pulse 65, respiratory rate 15, blood pressure 142/60, pulse oximetry 100. HEENT: Head normocephalic, atraumatic. Eyes: PERRLA. Extraocular muscles intact. Conjunctivae are clear of the left eye, right eye is barely openable. Nose is patent. NECK: Supple. No carotid bruit, JVD or thyromegaly. CHEST: Bilaterally symmetrical. HEART: S1, S2 positive. LUNGS: Clear to auscultation. ABDOMEN: Soft. Bowel sounds present. No organomegaly. EXTREMITIES: No edema, no cyanosis. NEUROLOGIC: The patient is awake, alert, moving all 4 extremities. No focal deficit. MEDICATIONS: Reviewed by me. LABORATORY DATA: White blood cells 14.5, hemoglobin 14, hematocrit 40.0, platelets 187, sodium 137, potassium 4.5, BUN 18, creatinine 0.7, and glucose 106. ASSESSMENT AND PLAN: The patient is a 61-year-old lady with leukocytosis, history of hypertension, hypercholesterolemia, chronic obstructive pulmonary disease, history of heavy tobacco abuse. She started smoking when she was 17 years of age. Lung cancer. Postoperative day #1, status post frontal craniotomy with excision of bilateral anterior frontal tumor. Decadron as per neurosurgery. Repeat CAT scan of the head without contrast today shows mild to moderate effacement of supratentorial sulci suggestive of mild increased intracranial pressure. is slightly smaller. Leukocytosis may be reactive postoperative. Continue steroids for better monitoring signs of infection. Gastrointestinal and deep venous thrombosis prophylaxis, sequential compression devices to lower extremities. Needs PT, OT. adeno carcinoma, possibly originally from the lungs. The patient is hemodynamically stable. Preoperative echo shows 55%, trace to mild mitral regurgitation. Continue metoprolol and hydralazine for blood pressure. Monitor closely. Repeat lab. Will follow up. Yaneth Darby MD cc: [id number] TT: 02/14/2017 20:21:29 Confirmation # [id number] Dictation # [id number] MTDD
[2017-02-15] MEDS: Albuterol-Ipratrop 3 mg / 0.5 (3 ml) UD IH SCH ×4 (01:56→19:54)
[2017-02-15] MEDS: Pantoprazole 40mg/100ml IVPB 100 ML IVPB SCH (05:57)
[2017-02-15] MEDS: Dexamethasone 4 mg/1 ml IVP SCH ×3 (05:57→21:44)
[2017-02-15 06:33] LABS: ADD MANUAL DIFF? NO
[2017-02-15 07:00] LABS: GRAN # 11.84 (1.4-6.5); GRAN % 90.8 % (50.0-68.0); HEMATOCRIT 37.4 % (36.0-48.0); LYMPH # 0.7 (1.2-3.4); LYMPH % 5.4 % (22.0-35.0); MEAN CELL VOLUME 89.5 fL (80.0-105.0); MEAN CORPUSCULAR HEMOGLOBIN 31.8 pg (25.0-35.0); MEAN CORPUSCULAR HGB CONC 35.6 g/dl (31.0-37.0); MEAN PLATELET VOLUME 9.9 fl (7.0-11.0); MONO # 0.5 (0.1-0.6); MONO % 3.8 % (1.0-6.0); PLATELET COUNT 195 10^3/uL (120.0-450.0); RED CELL DISTRIBUTION WIDTH 12.8 % (11.5-14.5)
[2017-02-15 07:14] LABS: ALKALINE PHOSPHATASE 56 U/L (38-133); ALT/SGPT 24 U/L (7-56); AST/SGOT 17 U/L (15-39); BILIRUBIN,TOTAL 0.5 mg/dL (0.2-1.3); BLOOD UREA NITROGEN 18 mg/dL (7-21); CALCIUM 8.9 mg/dL (8.4-10.5); CARBON DIOXIDE 26 mmol/L (21-33); CHLORIDE 101 mmol/L (98-107); GFR AFRICAN-AMERICAN > 60; GLUCOSE,RANDOM 115 mg/dL (70-110); MAGNESIUM 2.1 mg/dL (1.7-2.2); PHOSPHOROUS 3.2 mg/dL (2.5-4.5); POTASSIUM 4.2 mmol/L (3.6-5.0); SODIUM 133 mmol/L (132-148); TOTAL PROTEIN 6.1 g/dL (5.8-8.3)
--- NOTE | 2017-02-15 08:10 | PN ---
DATE: 02/14/2017 REFERRING PHYSICIAN: Dr. Darby. SUBJECTIVELY: The patient is sitting up in the bed having dinner. Has extensive swelling of the for ehead, especially right orbit, almost closing right eye. She is denying any headache, no nausea, no vomiting, diarrhea, leg pain or leg swelling. OBJECTIVELY: No acute distress. Temp is 98, heart rate is 87, respiratory rate is 16, blood pressure 117/83, pulse ox 100% on room ai r. HENT: Moist mucous membranes. Crowded airway. Has swelling of the forehead and eye____ closing bel ost her right eye. LUNGS: Has a fair airflow with few rhonchi. HEART: S1 and S2. ABDOMEN: Soft, nontender, no organomegaly. EXTREMITIES: There is no edema. NEUROLOGICALLY: Awake, alert. Follows simple commands. MEDICATIONS: She is on hydralazine 10 mg q.i.d. p.r.n., Decadron 4 mg q. 8 hours, DuoNeb q. 6 hours, Keppra 500 mg twice a day, Protonix 40 mg daily, Reglan 5 mg q. 6 hours p.r.n., Tylenol p.r.n. basis , Tylenol with codeine q. 6 hours p.r.n., Zestril 10 mg daily, Zofran p.r.n. basis. LABORATORY DATA: Shows hemoglobin 14.0, hematocrit 40.0, WBC 14.5, platelet is 187. Sodium 134, pot assium 4.5, chloride 97, bicarbonate 29, BUN 18, creatinine 0.7, glucose 106, calcium .2, phosph orus 4.6. AST 17, ALT 25, alk phos is 56, albumin is 3.1. Has a CAT scan of the head done yesterday which shows 2 adjacent foci of high attenuation seen at the bilateral frontal lobe consistent with postsurgical changes. The largest focus measured approximate ly 1.9 cm transverse diameter, an adjacent moderate amount of intraparenchymal air also consistent po stsurgical changes. Postsurgical changes at the right cerebellum, [id number] effacement in the supratentorial sulci suggestive of mild increased intracranial pressure. The lateral ventricle in t he basilar system appears slightly smaller compared to the previous exam. IMPRESSION AND PLAN: Metastatic adenocarcinoma involving the brain requiring craniectomy and resect ion of cerebellum, and a left frontal lobe tumor as postop changes, with significant edema of the fac e. Chronic obstructive lung disease, hypertension. She is on high dose of steroids. Continue bronc hodilator. Keep head elevated 45 degrees. SCD to lower extremity, gastric prophylaxis. Will speak to Dr. Darby. We may need oncology consult. Fall precautions. Follow up labs in the morning. Thank you, and will follow with you. Chica Palmer MD cc: [id number] TT: 02/14/2017 22:32:14 Confirmation # [id number] Dictation # [id number] jn
--- NOTE | 2017-02-15 13:11 | CP.PCM.CON ---
History of Present Illness - History of Present Illness History of Present Illness: Ms Brannon is a 61 year old female with metastatic lung cancer with brain metastases. We were asked to see this patient by Dr Carranza. She presented on February 02 with a 1 week history of generalized headaches as well as nausea/ vomiting. She saw her PCP who ordered a CT of the head which showed multiple lesions. She was then sent to the ED for further evaluation and management. [place] [facility] [place] had a MRI of the brain on February 02, 2017 revealed predominantly solid mass in the right frontal region measuring 2 x 3.1cm as well as left frontal cystic mass measuring 5.7 x 3.2cm compression the left frontal horn. There was also a right cerebellar lesion with edema compression the 4th ventricle with tonsillar herniation. A CT of the chest, abdomen and pelvis on February 03, 2017 revealed a 1.2 x 1.6cm left apical nodule in the lung. There was also a 7mm nodule in the right upper lung. There were calcified mediastinal nodes. There was no evidence of metastases in the abdomen and pelvis. She was started on decadron. She was evaluated by neurosurgery to the tonsillar herniation and compression of the 4th ventricle. On February 07, 2017, she had a suboccipital craniotomy with resection of the cerebellar lesion. The pathology confirmed adenocarcinoma of lung origin. On February 13, 2017, she was taken again to the OR for a bifrontal craniotomy with resection of the bifrontal tumors. As per the note, the purpose of the second surgery was for decompression. The pathology from this surgery is currently pending. A postoperative CT of the head on February 14, 2017 revealed 2 adjacent foci of high attenuation consistent with post-surgical changes. She is referred to us for consideration of postoperative radiation therapy. Review of Systems - Constitutional Constitutional: Headache Past Patient History - Infectious Disease Hx of Infectious Diseases: None - Past Social History Smoking Status: Current Some Days Smoker Alcohol: Occasional Home Situation {Lives}: Other (she lives with her boyfriend) - CARDIAC Hx Hypercholesterolemia: Yes Hx Hypertension: Yes - PULMONARY Hx Chronic Obstructive Pulmonary Disease (COPD): Yes - NEUROLOGICAL Hx Neurological Disorder: No - HEENT Hx HEENT Problems: No - RENAL Hx Chronic Kidney Disease: No - ENDOCRINE/METABOLIC Hx Endocrine Disorders: No - INTEGUMENTARY Hx Dermatological Problems: No - MUSCULOSKELETAL/RHEUMATOLOGICAL Hx Falls: No - GASTROINTESTINAL Hx Gastrointestinal Disorders: No - PSYCHIATRIC Hx Psychophysiologic Disorder: No Hx Depression: No Hx Emotional Abuse: No Hx Physical Abuse: No Hx Substance Use: No - SURGICAL HISTORY Hx Hysterectomy: Yes - ANESTHESIA Hx Anesthesia Reactions: No Hx Malignant Hyperthermia: No Meds Allergies/Adverse Reactions: Allergies Allergy/AdvReac Type Severity Reaction Status Date / Time No Known Allergies Allergy Verified 02/07/17 13:39 - Medications Medications: Current Medications Acetaminophen (Tylenol 325mg Tab) 650 mg PO Q4H PRN PRN Reason: Headache Last Admin: 02/13/17 16:00 Dose: 650 mg Albuterol/Ipratropium (Duoneb 3 Mg/0.5 Mg (3 Ml) Ud) 3 ml IH [id number] [facility] Last Admin: 02/15/17 08:21 Dose: 3 ml Dexamethasone (Decadron Inj) 4 mg IVP Q8 [facility] Last Admin: 02/15/17 05:57 Dose: 4 mg Hydralazine HCl (Apresoline) 10 mg PO QID PRN PRN Reason: FOR SBOP>150 and diastolic>90 Last Admin: 02/08/17 09:33 Dose: 10 mg Pantoprazole Sodium (Protonix 40mg Ivpb) 100 mls @ 200 mls/hr IVPB 0600 [facility] Last Admin: 02/15/17 05:57 Dose: 200 mls/hr Levetiracetam (Keppra) 500 mg PO BID [facility] Last Admin: 02/15/17 09:46 Dose: 500 mg Lisinopril (Zestril) 10 mg PO DAILY [facility] Last Admin: 02/15/17 09:46 Dose: 10 mg Metoclopramide HCl (Reglan) 5 mg IVP Q6 PRN PRN Reason: Nausea/Vomiting Last Admin: 02/08/17 08:40 Dose: 5 mg Ondansetron HCl (Zofran Inj) 4 mg IVP Q4H PRN PRN Reason: Nausea/Vomiting Last Admin: 02/08/17 08:40 Dose: 4 mg Physical Exam - Head Exam Additional comments: surgical dressing with soft tissue swelling in the frontal and occipital region from her recent surgeries - Eye Exam Additional comments: right eye ptosis and swelling postop - Respiratory Exam Respiratory Exam: Clear to Auscultation Bilateral - Cardiovascular Exam Cardiovascular Exam: REGULAR RHYTHM - GI/Abdominal Exam GI & Abdominal Exam: Normal Bowel Sounds - Back Exam Back exam: NORMAL INSPECTION - Neurological Exam Neurological exam: CN II-XII Intact, Oriented x3 Results - Vital Signs Recent Vital Signs: Last Vital Signs Temp 98.5 F 02/15/17 06:00 Pulse 73 02/15/17 06:00 Resp 20 02/15/17 06:00 BP 118/71 02/15/17 06:00 Pulse Ox 98 02/15/17 06:00 - Labs Result Diagrams: 02/15/17 06:02 02/15/17 06:02 Labs: Laboratory Results - last 24 hr 02/06/17 02/15/17 08:35 06:02 WBC 13.0 H RBC 4.18 Hgb 13.3 Hct 37.4 MCV 89.5 MCH 31.8 MCHC 35.6 RDW 12.8 Plt Count 195 MPV 9.9 Gran % 90.8 H Lymph % (Auto) 5.4 L [place] % (Auto) 3.8 Eos % (Auto) 0.0 L Baso % (Auto) 0.0 Gran # 11.84 H Lymph # 0.7 L [place] # 0.5 Eos # 0.0 Baso # 0.00 Sodium 133 Potassium 4.2 Chloride 101 Carbon Dioxide 26 Anion Gap 10 BUN 18 Creatinine 0.7 Est GFR ( Amer) > 60 Est GFR (Non-Af Amer) > 60 Random Glucose 115 H Calcium 8.9 Phosphorus 3.2 Magnesium 2.1 Total Bilirubin 0.5 AST 17 ALT 24 Alkaline Phosphatase 56 Total Protein 6.1 Albumin 3.0 Globulin 3.1 Albumin/Globulin Ratio 1.0 L Crossmatch See Detail Assessment & Plan - Assessment and Plan (Free Text) Assessment: Ms Brannon is a 61 year old female with metastatic lung cancer with brain metastases status post bifrontal and occipital craniotomy with surgical resection for decompression as per neurosurgery note. We would concur that she would benefit from whole brain radiation, however she needs at least 3-4 weeks for healing prior to finalizing a treatment plan. While we spoke briefly with Nicol about what has been going on, we spoke at length with her daughter about the radiation therapy for her brain. Her daughter who is actively involved in her care stated that her mom is overwhelmed with what is going on, and is slowly processing what has happened We have scheduled her and her daughter to come see us in a several weeks to see how she is recovering and to finalize a plan.
--- NOTE | 2017-02-15 18:46 | PN ---
DATE: 02/15/2017 REASON FOR CONSULTATION AND FOLLOWUP: Uncontrolled hypertension, status post craniotomy, removal of the tumor of occipital lobe, status post redo surgery for removal of the frontal lobe tumor bilateral ly. BRIEF CLINICAL HISTORY: This is a 61-year-old female with a past history of hypertension, admitted w ith recurrent headache, found to have multiple lesions in the brain, occipital as well as frontal lob e. The patient first initially went for the occipital lobe resection of the tumor. Day before yest erday underwent frontal lobe lobectomy. Denies any chest pain, shortness of breath, any palpitation. Lying flat. PHYSICAL EXAMINATION: VITAL SIGNS: Temperature afebrile, heart rate 94, blood pressure 119/70. HEENT: PERRLA. Extraocular muscles intact. NECK: Supple. No carotid bruits. No thyromegaly. CHEST: Clear to auscultation. HEART: S1, S2 regular. ABDOMEN: Soft. EXTREMITIES: Clubbing and cyanosis negative. BLOOD WORKUP: WBC 13, hemoglobin 13.____, hematocrit 37.4, platelet count 195. Chemistry shows sodi um 130, potassium 4.2, chloride 101, carbon dioxide 26, anion gap of 10, BUN 18, creatinine 0.7, rand om sugar 115, calcium 8.5, phosphorous 3.2, magnesium 2.1. Total protein 6.____, albumin 3, albumin/ globulin ratio 1. IMPRESSION: History of hypertension, hyperlipidemia, metastatic adenocarcinoma possibly originating from the lung, status post removal of 2 tumors from the occipital lobe, yesterday underwent 2 tumors removed from the frontal lobe. Postoperative course: Hemodynamically stable. Preoperative echocard iogram shows ejection fraction 55%, trace to mild mitral regurgitation, trace to mild tricuspid regur gitation, right ventricular systolic pressure 38. RECOMMENDATION: Continue hydralazine p.r.n. Continue lisinopril, started 10 mg daily. The patient was not on metoprolol because the patient was initially bradycardiac. Now the heart rate picked up t o 94. We will give low dose of beta glenroy because patient is on Decadron as well. For anticipatin g hypertensive response, will add low dose of beta glenroy 12.5 twice a day. Will follow with you. Thank you, Dr. Darby, for providing the opportunity in taking care of this patient. Chica Simon MD cc: [id number] TT: 02/15/2017 18:45:56 Confirmation # [id number] Dictation # [id number] mn
--- NOTE | 2017-02-15 19:54 | PN ---
DATE: 02/15/2017 REFERRING PHYSICIAN: Dr. Darby. SUBJECTIVE: The patient is lying in the bed, head at 45 degree, is at bedside, feels a littl e better. Right eye swelling is better, but there is more swelling on the left side. No significant headache, no rhinitis, no nausea, no vomiting, no diarrhea. No leg pain or leg swelling. OBJECTIVE: GENERAL: In no acute distress. VITAL SIGNS: Temp is 98, heart rate is 94, respiratory rate is 20, blood pressure 119/78, pulse ox 9 8% on room air. HEENT: Moist mucous membranes. Crowded airway. Has bilateral eye and forehead swelling. Frontal h ead has a dressing, occipital area has a dressing. LUNGS: Had a fair airflow with a few rhonchi. HEART: S1, S2. ABDOMEN: Soft, nontender. No organomegaly. EXTREMITIES: There is no edema. NEUROLOGIC: Awake, alert, follow simple commands. MEDICATIONS: She is on hydralazine 10 mg q.i.d., Decadron 4 mg q.8 hours, DuoNeb q.6 hours, Keppra 5 00 mg twice a day, metoprolol tartrate 12.5 mg twice a day, Protonix 40 mg daily, Tylenol p.r.n. basi s, Zestril 10 mg daily, Zofran on a p.r.n. basis. LABORATORY DATA: Shows hemoglobin , hematocrit 37.4, WBC 13.0, platelet count is 195. Sodium 1 33, potassium 4.2, chloride 101, bicarbonate 26, BUN 18, creatinine 0.7, glucose 115, calcium 8.9, ph osphorus 3.2, magnesium 2.1, AST is 17, ALT 24, alkaline phosphatase is 56, albumin is 3.0. IMPRESSION AND PLAN: Metastatic adenocarcinoma, probably primary is the lung with bilateral upper lo be nodule, has multiple brain lesions requiring craniotomy, the first one was occipital with specimen showing adenocarcinoma, the second one was frontal lobe; history of chronic lung disease, hypertensi on, significant forehead and eye edema. The patient was seen by radiation oncology. Also, needs an oncology consultation. Keep head elevated at 45 degrees. Bronchodilator. Gastric prophylaxis. Seq uential compression devices to lower extremities. Thank you and will follow with you. Chica Palmer MD cc: [id number] TT: 02/15/2017 19:53:27 Confirmation # [id number] Dictation # [id number] dn
--- NOTE | 2017-02-15 20:26 | CON ---
DATE: 02/15/[address] Carranza. CHIEF COMPLAINT: Mental status change and brain mets. HISTORY OF PRESENT ILLNESS: The patient is a 61-year-old female admitted via the Emergency Room on , originally for mental status change noted by coworkers for forgetfulness, emotional, problem s with disorientation and severe headaches. Upon testing with a CT scan of the brain 2 masses were n oted, cerebellar and frontal with a neurosurgical evaluation and treatment for [address] Quinton Linn and Dr. Ward on 02/07/2017 with a second procedure on 02/14/2017. There is a request n ow for consultation with Dr. Carranza for lung cancer with brain mets by Ximena Gill. After conver sation with Dr. Darby and reviewing the case, Dr. Carranza will evaluate the patient in the morning. At present, the patient is now resting comfortably in bed, status post the second procedure with sig nificant swelling of the eyelids bilaterally with compromised vision. Denying any pain at present wi th the patient otherwise is awake and alert. Reporting that her appetite is good. ALLERGIES: No known allergies. MEDICATIONS: At present include hydralazine p.r.n., Decadron 4 mg IV q. 8, DuoNeb q. 6, Keppra 500 b .i.d., Lopressor 12.5 b.i.d., Protonix 40 mg p.o. daily change from IV earlier today, Tylenol p.r.n., Zestril 10 mg daily and Zofran p.r.n. with oxygen 2 liters nasal cannula. PAST MEDICAL HISTORY: Significant for hypertension, hyperlipidemia. FAMILY HISTORY AND SOCIAL HISTORY: Light smoker, approximately half pack a day, occasional alcohol u se. REVIEW OF SYSTEMS: Essentially negative to questioning except as above. OBJECTIVE, PHYSICAL EXAMINATION: VITAL SIGNS: Temperature 98.2, pulse 94, respirations 20, blood pressure 119/70, pulse ox 98%. HEENT: Significant edema of the eyelids bilaterally with dressings on her head, status post neurosur gical intervention procedures. NECK: Supple. HEART: Regular rate. LUNGS: Scattered rhonchi. ABDOMEN: Soft, nontender. EXTREMITIES: No edema. SKIN: Warm, dry and clear. NEUROLOGIC: Awake, alert. Wiggles her toes freely. LABORATORY DATA: The patient's labs were done, white blood cell count today of 13.0, hemoglobin of 1 3.3, hematocrit 37.4, platelet count of 195,000 with a chem metabolic panel completely within normal range. Earlier testing showed a TSH of 0.2 on 02/03/2017 with an INR done 2 days prior of 0.98. Urina lysis showed no sugar, blood and protein in her urine. The patient's initial testing included an MRI of the brain done 02/02/2017 showing a complex cystic and solid masses in both frontal lobes in the ri ght cerebellar hemisphere consistent with metastatic disease with a mild hydrocephalus and tonsil her niation as described above with the tonsils extending 5 mm below the foramen magnum, mild hydrocephal us with enlargement of the temporal horns, cystic mass right cerebellar hemisphere with a thick enhan cing rim moderate amount of vasogenic edema and mass compressing the fourth ventricle also produces t onsil herniation at the foramen magnum with loss of basal cisterns superiorly. She had a CT scan of her abdomen and pelvis. They were read as no evidence of primary or metastatic malignancy. CT scan of her chest; however, on 02/03/2017 showed a 12 x 16 mm lung nodule left lung ape x, suspicious for primary malignancy, small 7 mm nodule right upper lobe posteriorly, multiple calcif ied mediastinal lymph nodes consistent with previous granulomatous infections. An echocardiogram was done 02/04/2017 it was read as ejection fraction 65%-70%, trace MR. The patient had a sleep and awake EEG 02/02/2017. It was concluded to read normal electroencephalogram showing no epileptiform activity . The patient had a pathologic cytologic specimen done on 02/07/2017 and specimen was brain cerebella amaris or showing metastatic adenocarcinoma, acinar type of lung origin. Fluid was also received, cerebella r tumor fluid positive for malignant cells consistent with cerebella suboccipital tumor metastatic ad enocarcinoma. A third specimen from bilateral frontal tumors from 02/13/2017 showed metastatic adenoc arcinoma, see previous pathological report. ASSESSMENT: Metastatic adenocarcinoma of the lung with metastasis to the brain, status post emergenc y surgery for tonsillar herniation successfully performed by Dr. Linn. Leukocytosis secondary to steroids, hypertension, chronic obstructive pulmonary disease, smoker, postop day 2 frontal cran iotomy with excision of bilateral anterior frontal tumors. The patient did have a CT scan of the hea d done yesterday which showed 2 adjacent foci of high attenuation seen in the bilateral frontal lobes consistent with postsurgical changes, largest foci measuring 1.9 cm in transverse diameter and adjac ent moderate amount of intraparenchymal air consistent with postsurgical changes, post-surgical vargas es right cerebellum, mild to moderate effacement supratentorial sulci suggestive of mild increased in tracranial pressure. Lateral ventricles in the bibasilar cisterna appear slightly smaller compared t o previous exam. PLAN: After conversation with Dr. Carranza is to ask for a radiation oncology consult with Dr. Adwoa grayson. He will also ask for special testing on the brain tissue for KRAS/EGFR ROS testing, alk T7 90 an d PDL1 testing to be done. We will monitor clinically and with labs. Prognosis for this patient is guarded. Corbin Borrego MD cc: [id number] TT: 02/15/2017 20:25:00 Confirmation # [id number] Dictation # [id number] dominick
[2017-02-16] MEDS: Albuterol-Ipratrop 3 mg / 0.5 (3 ml) UD IH SCH ×4 (01:19→20:05)
--- NOTE | 2017-02-16 01:59 | PN ---
DATE: 02/15/2017 SUBJECTIVE: The patient was seen and examined on the bedside, looks comfortable, has dressing on the front side and backside of the head. The daughter's is sitting on the bedside. I had a mihai gth of time discussion done with the patient's daughter and answered all questions, talked about POS. No fever, no chills. No swelling of the legs. According to her, no headache. She still has swell ing of both legs. PHYSICAL EXAMINATION: VITAL SIGNS: Temperature 98, heart rate 94, respiratory rate 20, blood pressure 119/78, and pulse ox imeter 98 on room air. HEENT: Head normocephalic, atraumatic, has dressing on the backside of the head and on the front, adenike th eyelids are swollen, PERRLA. Nose patent. Mucous membranes moist. CHEST: Bilaterally symmetrical. HEART: S1, S2 positive. LUNGS: Clear to auscultation. ABDOMEN: Soft. Bowel sounds present. No organomegaly. EXTREMITIES: No edema, no cyanosis. NEUROLOGIC: The patient is awake, alert, moving all 4 extremities. No focal deficit. MEDICATIONS: Hydralazine, Decadron, DuoNeb, Keppra, metoprolol, Protonix, Tylenol, Zestril and Zofra n on a p.r.n. basis. LABORATORY DATA: Hematocrit 37.4, white blood cells 13, platelets 195. Sodium 133, potassium 4.2, B UN 18, creatinine 0.7, glucose 115, calcium 8.9, phosphorus 3.2, magnesium 2.1. AST 17, ALT 24. ASSESSMENT AND PLAN: The patient is a 61-year-old lady with metastatic adenocarcinoma primary of the lung with bilateral upper lobe nodules, had multiple brain lesions requiring craniotomy from the fro nt and back, first round craniotomy was on the back in the occipital region with specimen showing matti nocarcinoma, the second one on the frontal lobe there shows adenocarcinoma also, history of chronic o bstructive lung disease, heavy smoking, hypertension, have eye swelling. The patient was seen by Dr. Pardo, radiation oncologist. Dr. Carranza is on the case for oncology, bronchodilators. Gastric proph ylaxis, sequential compression devices prophylaxis, physical therapy. Repeat labs. We will follow u p. Yaneth Darby MD cc: [id number] TT: 02/16/2017 01:58:33 Confirmation # [id number] Dictation # [id number] hn
[2017-02-16] MEDS: Pantoprazole 40 mg EC Tab PO SCH (06:10)
[2017-02-16] MEDS: Dexamethasone 4 mg/1 ml IVP SCH ×3 (06:10→21:07)
[2017-02-16 07:22] LABS: GRAN # 9.88 (1.4-6.5); GRAN % 91.5 % (50.0-68.0); HEMATOCRIT 35.8 % (36.0-48.0); LYMPH # 0.6 (1.2-3.4); LYMPH % 5.8 % (22.0-35.0); MEAN CELL VOLUME 90.2 fL (80.0-105.0); MEAN CORPUSCULAR HEMOGLOBIN 31.7 pg (25.0-35.0); MEAN CORPUSCULAR HGB CONC 35.2 g/dl (31.0-37.0); MEAN PLATELET VOLUME 9.5 fl (7.0-11.0); MONO # 0.3 (0.1-0.6); MONO % 2.7 % (1.0-6.0); PLATELET COUNT 189 10^3/uL (120.0-450.0); WHITE BLOOD COUNT 10.8 10^3/ul (4.5-11.0)
[2017-02-16 07:36] LABS: ADD MANUAL DIFF? NO
[2017-02-16 07:48] LABS: ALB/GLOB RATIO 0.9 (1.1-1.8); ALKALINE PHOSPHATASE 55 U/L (38-133); ALT/SGPT 21 U/L (7-56); AST/SGOT 15 U/L (15-39); BILIRUBIN,TOTAL 0.4 mg/dL (0.2-1.3); BLOOD UREA NITROGEN 18 mg/dL (7-21); CALCIUM 8.8 mg/dL (8.4-10.5); CARBON DIOXIDE 26 mmol/L (21-33); CHLORIDE 102 mmol/L (98-107); GFR AFRICAN-AMERICAN > 60; GLUCOSE,RANDOM 118 mg/dL (70-110); MAGNESIUM 2.1 mg/dL (1.7-2.2); PHOSPHOROUS 3.3 mg/dL (2.5-4.5); POTASSIUM 4.4 mmol/L (3.6-5.0); SODIUM 132 mmol/L (132-148)
--- NOTE | 2017-02-16 19:29 | PN ---
DATE: 02/16/2017 REFERRING PHYSICIAN: Dr. Darby. SUBJECTIVELY: The patient is sitting side of the bed. and family at bedside. Feels better. Still has an ecchymotic area of the forehead and eyebrows. A little decreased swelling since yeste rday. Has a dressing on the wound. No cough, no sputum production, no nausea, no vomiting, diarrhea , leg pain, or leg swelling. OBJECTIVELY: No acute distress. Temp is 98, heart rate is 94, respiratory rate is 20, blood pressure 109/64, pulse ox 98% on room air . HENT: Moist mucous membrane. Crowded airway. NECK: Supple, no JVD. FACE has ecchymotic area, especially around the eyes, and swelling. Head wound is covered with dress ing. LUNGS: Had a fair airflow with few rhonchi. HEART: S1 and S2. ABDOMEN: Soft, nontender. No organomegaly. EXTREMITIES: There is no edema. NEUROLOGICALLY: Awake, alert. Follows simple command. MEDICATIONS: She is on hydralazine 10 mg q.i.d. p.r.n., Decadron 4 mg q. 8 hours, albuterol/Atrovent nebulizer q. 6 hours, Keppra 500 mg twice a day, metoprolol tartrate 12.5 mg twice a day, Protonix 4 0 mg daily, Tylenol p.r.n. basis, Zestril 10 mg daily, Zofran p.r.n. basis. LABORATORY DATA: Shows hemoglobin 12.6, hematocrit 35.8, WBC is 10.8, platelet is 189. Sodium 132, potassium 4.4, chloride 102, bicarbonate 26, BUN 18, creatinine 0.7, glucose 118, calcium is 8.8, diann sphorus 3.3. AST 15, ALT 21, alk phos is 55, albumin 2.9. IMPRESSION AND PLAN: Metastatic adenocarcinoma, probably primary of the lung, with multiple lung mas ses status post craniotomy x 2 with occipital mass resection, and also frontal lobe mass resection fo und to be adenocarcinoma. Primary probably is the lung. A lot of facial swelling and ecchymotic are a after surgery. Chronic lung disease, hypertension. Spoke to patient and bedside. All their questions answered. The patient does not want to di scuss about her cancer at this time. Continue bronchodilator. Keep head 45 degree. Gastric prophyl axis. SCD to lower extremity. Chica Palmer MD cc: [id number] TT: 02/16/2017 19:28:20 Confirmation # [id number] Dictation # [id number] jn
--- NOTE | 2017-02-16 22:19 | PN ---
DATE: 02/16/2017 SUBJECTIVE: The patient is seen and examined on the bedside, still has swelling of both legs, both eyes, but improving. No headache. No fever, no chills, no nausea, vomiting, or diarrhea. No fever. Does not look like toxic. No swelling of the leg. PHYSICAL EXAMINATION: VITAL SIGNS: Temperature 97.6, pulse 100, blood pressure 120/80, respiratory rate 18. HEENT: Head normocephalic, atraumatic. Eyes: PERRLA. Extraocular muscles intact. Conjunctivae pink. Eyelids unremarkable. Nose patent. Mucous membranes moist. NECK: Supple. No carotid bruit, JVD or thyromegaly. CHEST: Bilaterally symmetrical. HEART: S1, S2 positive. LUNGS: Clear to auscultation. ABDOMEN: Soft. Bowel sounds present. No organomegaly. EXTREMITIES: No edema, no cyanosis. NEUROLOGIC: The patient is awake, alert and moving all 4 extremities. No focal deficits. MEDICATIONS: Hydralazine, Decadron, DuoNeb, Keppra, Lopressor, Protonix, Tylenol, Zestril and Zofran. LABORATORY DATA: White blood cells 10.8, hemoglobin 12.6, hematocrit 35.8, platelets 189. Sodium 132, potassium 4.4, BUN 18, creatinine 0.7, glucose 118. ASSESSMENT AND PLAN: The patient is a 61-year-old lady with leukocytosis, hyperglycemia with history of brain tumors, metastatic adenocarcinoma probably primary of the lung with bilateral upper lobe nodules, had multiple brain lesions requiring craniotomy from the front and from the back, both came like adenocarcinoma, looks like origin from the lungs, history of lung densities bilaterally, hypertension, significant for head and eye edema. The patient is seen by radiation oncologist, Dr. Pardo. Dr. Carranza is on the case, waiting for his input. Gastric and deep venous thrombosis prophylaxis, sequential compression devices. We will continue hydralazine and Lopressor, and Zestril for high blood pressure, Decadron for brain swelling, getting albuterol/ ipratropium for chronic obstructive pulmonary disease, Keppra for seizure precautions. Getting Protonix for gastrointestinal. Sequential compression devices to lower extremity for deep venous thrombosis prophylaxis. Repeat labs. We will follow up. Yaneth Darby MD cc: [id number] TT: 02/16/2017 22:18:46 Confirmation # [id number] Dictation # [id number] MTDD
[2017-02-17] MEDS: Albuterol-Ipratrop 3 mg / 0.5 (3 ml) UD IH SCH ×4 (02:35→19:10)
[2017-02-17] MEDS: Pantoprazole 40 mg EC Tab PO SCH (06:09)
[2017-02-17] MEDS: Dexamethasone 4 mg/1 ml IVP SCH ×3 (06:09→22:55)
--- NOTE | 2017-02-17 16:52 | PN ---
DATE: 02/17/2017 REFERRING PHYSICIAN: Dr. Darby SUBJECTIVE: The patient is sitting up in a chair, having lunch. Night was unremarkable, feels a lit tle better, has ecchymotic area on both orbits, but swelling is a little better. No cough, no sputum production, no nausea, no vomiting, no diarrhea. No leg pain or leg swelling. OBJECTIVE: GENERAL: No acute distress. VITAL SIGNS: Temperature is 98, heart rate is 106, respiratory rate is 20, blood pressure 125/66, pu lse ox 99% on room air. HEENT: Moist mucous membrane. Crowded airway. Mallampati score is 4. Over forehead and both orbit s, has an ecchymotic area. NECK: Supple, no JVD. LUNGS: Have a fair airflow with a few rhonchi. HEART: S1 and S2. ABDOMEN: Soft, nontender. No organomegaly. EXTREMITIES: There is no edema. NEUROLOGIC: Awake, alert, follows simple commands. MEDICATIONS: She is on hydralazine 10 mg q.i.d., Decadron 4 mg q. 8 hours, albuterol-Atrovent nebuli zer q. 6 hours, Keppra 500 mg twice a day, metoprolol tartrate 12.5 mg twice a day, Protonix 40 mg da pau, Tylenol p.r.n. basis, Zestril 10 mg daily, Zofran p.r.n. basis. LABORATORY DATA: Reviewed. No new lab is available since yesterday. IMPRESSION AND PLAN: Metastatic adenocarcinoma, probably primary is the lung, has a craniotomy of th e occipital as well as the frontal lobe done with resection of the mass, cytology positive for metast atic disease which is adenocarcinoma, also has 2 nodules in the right upper and left upper lobe, tree sapper fay obstructive lung disease, hypertension. Pulmonary point of view, doing okay. Continue bronchodi lator. Keep head at 45 degrees. Fall precautions. Gastric prophylaxis. Sequential compression dev ice to lower extremity. When clear by neurosurgery, needs rehab and also needs oncology as well as r adiation oncology followup. Thank you and we will follow with you. Chica Palmer MD cc: [id number] TT: 02/17/2017 16:51:30 Confirmation # [id number] Dictation # [id number] en
--- NOTE | 2017-02-17 19:04 | PN ---
DATE: 02/17/2017 The patient is a 61-year-old female. The patient was seen and examined on the bedside, looks comfort able. Actually, she was sitting on the chair. Swelling of the forehead and eyes are getting better, has ecchymotic area around both eye orbits. No coughing, no shortness of breath, no fever, no chill s. No nausea, vomiting, diarrhea. No swelling of the legs. PHYSICAL EXAMINATION: VITAL SIGNS: Temperature 98, heart rate 106, respiratory rate 20, blood pressure 125/66, pulse oxime try 99% on room air. HEENT: Head normocephalic, atraumatic. Has dressing on the front and back of the head. Eyes, surro unding area around the eye is ecchymotic and pupils are reactive, conjunctivae clear. Nose patent. Mucous membranes moist. NECK: Supple. Crowded airway. No JVD. LUNGS: Has fair airflow with few rhonchi. HEART: S1, S2 positive. ABDOMEN: Soft, nontender. No organomegaly. EXTREMITIES: No edema, no cyanosis. NEUROLOGIC: The patient is awake, alert, follows simple commands. MEDICATIONS: Hydralazine, albuterol, Keppra, metoprolol, Protonix, Tylenol, Zestril, Zofran. LABORATORIES: We do not have labs today, but I reviewed old labs. ASSESSMENT AND PLAN: The patient is a 61-year-old female with metastatic adenocarcinoma, probably pr imary is in lungs, has craniotomy from the occipital as well as from the frontal lobe with resection of the masses. Biopsy is positive for metastatic adenocarcinoma. The patient has 2 nodules in the r ight upper and left upper lobe of the lungs, chronic obstructive lung disease, history of heavy smoki ng, hypertension. Continue bronchodilators. Fall precautions. Gastric prophylaxis. Sequential com pression devices of lower extremities. The patient needs rehab. Getting physical therapy. Upon eliel arance of neurosurgeon, we will try to do TCU. The patient is seen by Dr. Adwoa Pardo, [facility], and according to her, the patient would benefit from whole brain radiation. However, she needs at least 3-4 weeks for healing prior to finalizing treatment plan. While we spoke briefly with the patient about what has been going on, we spoke at length with her daughter about radiation therapy fo r her brain. Her daughter, who is actively involved in her care, stated that her mom is overwhelmed with what is going on and is slowly processing what has happened. We have scheduled her and her daadia hter to come to see us in several weeks to see how she is recovering and finalizing the plan as per Susan Pardo. The patient was seen by Corbin Borrego. Everybody is actually waiting recovery of th e surgery. Then, we will finalize more treatment. We will follow up. Yaneth Darby MD cc: [id number] TT: 02/17/2017 19:03:11 Confirmation # [id number] Dictation # [id number] en
[2017-02-18] MEDS: Albuterol-Ipratrop 3 mg / 0.5 (3 ml) UD IH SCH ×4 (02:30→20:59)
[2017-02-18] MEDS: Pantoprazole 40 mg EC Tab PO SCH (06:48)
[2017-02-18] MEDS: Dexamethasone 4 mg/1 ml IVP SCH ×3 (06:48→21:31)
--- NOTE | 2017-02-18 11:53 | PN ---
DATE: 02/18/2017 The patient is in room 361, bed 2. REASON FOR CONSULTATION AND FOLLOWUP: Uncontrolled hypertension, status post appendectomy, removal o f tumor occipital lobe, status post redo surgery for removal of the frontal lobe tumor bilaterally. HISTORY OF PRESENT ILLNESS: The patient is a 61-year-old female with past history of hypertension, a dmitted with recurrent headache, found to have multiple lesions in the brain, occipital as well as f rontal lobe. The patient first initially went for occipital lobe resection of the tumor and a few da ys ago she went for a frontal lobe lobectomy. The patient is lying comfortably in bed without any ch est pain, shortness of breath, or palpitation. The brain lesion biopsy reported adenocarcinoma, whic h is probably metastatic most likely from the lung. PHYSICAL EXAMINATION: VITAL SIGNS: Blood pressure 124/84, respirations 20, pulse 81, temperature 98.4. HEAD: Normocephalic. EYES: Pupils normal. Conjunctivae normal. NOSE AND THROAT: Normal. NECK: JVP low. Carotid equal. THORAX: AP diameter normal. LUNGS: Clear. CARDIOVASCULAR: S1, S2. ABDOMEN: Soft, nontender, no organomegaly. Bowel sounds normal. EXTREMITIES: No clubbing, no cyanosis. LABORATORY DATA: WBC 10.8, hemoglobin 12.6, hematocrit 35.8, platelets 189. Sodium 132, potassium 4 .4, BUN 18, creatinine is 0.7. Calcium, phosphorus, magnesium, total bilirubin, AST and ALT normal. Total protein 6.0, albumin 2.9. DIAGNOSES: Adenocarcinoma, possible originating from the lung, hypertension, hyperlipidemia, status post-surgery of the brain tumor from occiput and frontal lobe. The patient's preoperative echocardio gram showed LV ejection fraction of 55%, right ventricular systolic pressure of 38 mmHg, trace to mil d mitral regurg, trace to mild tricuspid regurg. PLAN: To continue Decadron 4 mg IV q. 8 hours and DuoNeb therapy, Keppra 500 mg b.i.d., metopr olol tartrate 12.5 b.i.d., Protonix 40 daily, lisinopril 10 mg daily, Protonix 40 mg daily, lisinopri l 10 mg daily. We will continue present therapy and we will follow with you. Chica Fang MD cc: [id number] TT: 02/18/2017 11:52:08 Confirmation # [id number] Dictation # [id number] mn
--- NOTE | 2017-02-18 21:22 | PN ---
DATE: 02/18/2017 REFERRING PHYSICIAN: Dr. Darby. SUBJECTIVE: The patient is lying in the bed, head up 35 degrees, feels okay, decreased facial swelli ng. Still has an ecchymotic area under both eyes. Denies any headache, no rhinitis, no nausea, no v omiting, diarrhea. No leg pain or leg swelling. OBJECTIVE: GENERAL: No acute distress. VITAL SIGNS: Temperature is 98, heart rate is 77, respiratory rate is 20, blood pressure 100/61, Pul se ox 100% on room air. HEENT: Moist mucous membrane. Crowded airway. NECK: Supple, no JVD ecchymotic area around the eyes. Cranial wound healing well. Has a dressing. LUNGS: Have a fair airflow with rhonchi. HEART: S1, S2. ABDOMEN: Soft, nontender. No organomegaly. EXTREMITIES: There is no edema. NEUROLOGIC: Awake, alert, does follow simple commands. MEDICATIONS: She is on hydralazine 10 mg q.i.d. p.r.n., Decadron 4 mg q. 8 hours, DuoNeb q. 6 hours, Keppra 500 mg twice a day, metoprolol tartrate 12.5 mg twice a day, Protonix 40 mg daily, Tylenol p. r.n. basis, Zestril 10 mg daily, Zofran on a p.r.n. basis. LABORATORY DATA: Shows hemoglobin 12.6, hematocrit 35.8, WBC 10.8, platelet count is 189. Sodium 13 2, potassium 4.4, chloride 102, bicarbonate 26, BUN 18, creatinine 0.7, glucose 118, calcium is 8.8, phosphorus 3.3, AST 15, ALT 21, alkaline phosphatase is 55, albumin is 2.9. IMPRESSION AND PLAN: Metastatic adenocarcinoma, probably primary from the lung, status post cranioto my x 2. left frontal lobe with resection of tumor. Cytology positive for adenocarcinoma, prob ably metastatic from the lungs, has a bilateral upper lobe lung nodule, chronic obstructive lung dise ase, hypertension. From Pulmonary point of view, she is doing okay. Continue bronchodilator. Keep head elevated at 45 degrees, aspiration precaution, gastric prophylaxis, sequential compression devic e to lower extremity. Oncology followup. Will benefit from acute inpatient rehabilitation. Chica Palmer MD cc: [id number] TT: 02/18/2017 21:21:33 Confirmation # [id number] Dictation # [id number] ln
--- NOTE | 2017-02-18 23:19 | PN ---
DATE: 02/18/2017 SUBJECTIVE: The patient is seen and examined on the bedside, sitting in a chair. Daughter, son-in-law, and her were sitting on the bedside. Length of time discussion done with the daughter and family members. All questions answered. Still has ecchymotic area around both eyes. Denies headache. No fever, no chills, no rhinitis. No nausea, vomiting, or diarrhea. No swelling of the legs. The patient is having good sleep, good bowel movements, and good appetite. PHYSICAL EXAMINATION: VITAL SIGNS: Temperature 98, heart rate 77, respiratory rate 20, blood pressure 100/51, pulse oximetry 100% on room air. HEENT: Head normocephalic and atraumatic. Mucous membranes are moist. Crowded airway. Has ecchymotic area around the eyes. NECK: Supple. No JVD.. LUNGS: Has a fair airflow with few rhonchi. HEART: S1, S2 positive. ABDOMEN: Soft, nontender, no organomegaly. EXTREMITIES: No edema, no cyanosis. NEUROLOGIC: The patient is awake, alert, moving all 4 extremities. No focal deficit. MEDICATIONS: Hydralazine, Decadron, DuoNeb, Keppra, metoprolol, Protonix, Tylenol, and Zofran. LABORATORY DATA: Hemoglobin 12.6, hematocrit 35.8, white blood cells 10.8, platelets 189. Sodium 132, potassium 4.4, BUN 18, creatinine 0.7. Calcium 8.8. AST 15, ALT 21. ASSESSMENT AND PLAN: The patient is a 61-year-old female with metastatic adenocarcinoma, probably primary from the lungs; status post craniotomy of both front and the occipital area, resection of the tumor, status positive for adenocarcinoma, but looks like secondary from lungs has bilateral upper lobe lung nodules, chronic obstructive pulmonary disease, hypertension, history of heavy smoking, history of hypertension, getting Decadron, aspiration precaution , gastric prophylaxis, sequential compression devices to lower extremities. benefit for home TCU rehabilitation. Discussion done with patient's daughter about to rehab and did patient's disability papers. We will talk to Neurology and when cleared, then, we will transfer the patient to TCU. Yaneth Mehnaz MD cc: [id number] TT: 02/18/2017 23:18:44 Confirmation # [id number] Dictation # [id number] ln MTDD
[2017-02-19] MEDS: Albuterol-Ipratrop 3 mg / 0.5 (3 ml) UD IH SCH ×4 (01:42→20:30)
[2017-02-19] MEDS: Pantoprazole 40 mg EC Tab PO SCH (06:20)
[2017-02-19] MEDS: Dexamethasone 4 mg/1 ml IVP SCH ×2 (06:20→14:12)
[2017-02-19 07:24] LABS: MEAN CELL VOLUME 90.7 fL (80.0-105.0); MEAN CORPUSCULAR HEMOGLOBIN 31.2 pg (25.0-35.0); MEAN CORPUSCULAR HGB CONC 34.4 g/dl (31.0-37.0); MEAN PLATELET VOLUME 9.4 fl (7.0-11.0); RED CELL DISTRIBUTION WIDTH 13.9 % (11.5-14.5); WHITE BLOOD COUNT 12.2 10^3/ul (4.5-11.0)
[2017-02-19 07:58] LABS: BLOOD UREA NITROGEN 18 mg/dL (7-21); CALCIUM 8.9 mg/dL (8.4-10.5); CARBON DIOXIDE 24 mmol/L (21-33); CHLORIDE 102 mmol/L (98-107); GFR AFRICAN-AMERICAN > 60; GLUCOSE,RANDOM 123 mg/dL (70-110); POTASSIUM 4.4 mmol/L (3.6-5.0); SODIUM 133 mmol/L (132-148)
--- NOTE | 2017-02-19 11:35 | PN ---
DATE: 02/19/2017 REASON FOR CONSULTATION AND FOLLOWUP: Uncontrolled hypertension, status post craniotomy, removal of tumor from occipital lobe, and redo surgery for removal of ____ frontal lobe. BRIEF CLINICAL HISTORY: This is a 61-year-old female with history of hypertension admitted with recu rrent headache and found to have a mass in the brain, status post craniotomy x 2 with removal of the tumor from the occipital lobe as well as recently frontal lobe. The patient is hemodynamically stabl e. Denies any chest pain, shortness of breath, any palpitation. The lesion is probably secondary me tastasis from adenocarcinoma of the lung/metastasis from the lung. PHYSICAL EXAMINATION: VITAL SIGNS: Temperature afebrile, heart rate 77, blood pressure 100/61. HEENT: PERRLA. Extraocular muscles intact. NECK: Supple. No carotid bruits. No thyromegaly. CHEST: Clear to auscultation. HEART: S1, S2 regular. ABDOMEN: Soft. EXTREMITIES: Clubbing and cyanosis negative. BLOOD WORKUP: WBC 12.2, hemoglobin 11.7, hematocrit 34, platelet count 215. Chemistry shows sodium 130, potassium 4.4, chloride 102, carbon dioxide 24, anion gap of 11, BUN 18, creatinine 0.7. Random sugar 123. IMPRESSION: Metastatic adenocarcinoma of the lung; 4 lesions in the brain, status post craniotomy an d removal of tumor from occipital lobe as well as frontal lobe. The patient had echocardiography don e that shows preserved left ventricular ejection fraction 55%, right ventricular systolic pressure 38 , trace to mild mitral regurgitation and trace to mild tricuspid regurgitation. RECOMMENDATION: Continue p.r.n. hydralazine and the patient continue lisinopril 10 mg daily. Contin ue metoprolol 12.5 mg daily. Steroids is on a tapering dose. Once this is off, we will reassess the need for antihypertensive medication. Will follow with you. Thank you, Dr. Darby, for providing the opportunity in taking care of this patient. Will follow nimisha aragon. Chica Simon MD cc: [id number] TT: 02/19/2017 11:21:28 Confirmation # [id number] Dictation # [id number] al 02/19/2017 10:34:23
--- NOTE | 2017-02-19 17:53 | CP.PCM.PCO ---
Assessment & Plan - Assessment and Plan (Free Text) Assessment: NEURO Communication Note: -DECADRON TAPER: 1) 2MG IV WILL BE CONVERTED TO 2MG PO Q12 FOR ONE DAY STARTING 02/19/17. 2) 2MG PO DAILY FOR ONE DAY. 3) 1MG PO OUT PATIENT DAILY FOR 3 DAYS AND THEN 0.5 MG DAILY FOR 2 DAYS THEN OFF. CASE DISCUSSED WITH IN PATIENT PHARMACY, NAMED [facility] PH[facility]IST WHO WILL PUT IN AND CHANGE THE ORDERS. THANKS ISMAEL ASIF.
[2017-02-19] MEDS ORDERED: Dexamethasone 4 mg/1 ml IVP SCH ×2 (17:59→18:00)
--- NOTE | 2017-02-19 18:02 | PN ---
DATE: 02/19/2017 SUBJECTIVE: Followup for status post metastatic adenocarcinoma of the lungs to the brain. The patient seen and examined at bedside. She is sitting up in the bed in no acute distress. Moving all extremities. She has mild ecchymotic area around both eyes. Otherwise, no fever, no chills, no acute events overnight. She has a good appetite, good bowel movements. No seizure-like activity. She is on Keppra 500 mg p.o. b.i.d. for seizure prophylaxis, and is also on Decadron. PAST MEDICAL HISTORY: History of hypercholesterolemia, hypertension. SOCIAL HISTORY: No illicit drug use or ETOH abuse; is a daily smoker. FAMILY HISTORY: Noncontributory. ALLERGIES: No known drug allergies. MEDICATIONS: Reviewed via nurse's reconciliation sheet. REVIEW OF SYSTEMS: A 14-point review of systems is negative except for the HPI. PHYSICAL EXAMINATION: VITAL SIGNS: Temperature 98.5, pulse rate 77, blood pressure 140/97, respiratory rate 20, oxygen sat uration 100% via room air. GENERAL EXAMINATION: The patient is lying in bed in no acute distress. HENT: Atraumatic, normocephalic. PERRLA, extraocular muscles intact. Has some ecchymotic area arou nd her eyes: NECK: Supple, no JVD, no adenopathy noted. LUNGS: Clear to auscultation. No adventitious sounds. HEART: S1, S2, normal rate and rhythm. No murmurs, rubs, or gallops. ABDOMEN: Soft, nontender, nondistended. Bowel sounds present. EXTREMITIES: No clubbing, no cyanosis. Peripheral pulses 2+ felt bilaterally. SENSORY: Light touch, pinprick, proprioception, vibration intact bilaterally. COORDINATION: Hoierv-eh-reei intact, slightly dysmetric on the right when compared to the left. DEEP TENDON REFLEXES: 2+ throughout. GAIT: Deferred for now. Sodium is 133, potassium 4.4, chloride of 102, carbon dioxide 24, BUN of 18, creatinine 0.7, random g lucose of 123, A1c was 5.4. ASSESSMENT AND PLAN: This is a 61-year-old woman with history of hypertension, hist ory of hyperlipidemia, who came in to the hospital initially for change in her memory and was becomin g more forgetful, and had headaches over the past couple of weeks. Found to have MRI of the brain sh owing multiple complex cystic solid masses in the frontal lobes and right cerebellar hemisphere consi stent with metastatic disease. Had some mild hydrocephalus and tonsillar herniation and was status p ost suboccipital and frontal craniotomy with excision of the cerebellar tumor and frontal tumor was d one. Pathology revealed positive for adenocarcinoma secondary from both upper lung nodules, superimp osed underlying chronic obstructive pulmonary disease with history of heavy smoking. At this time radiation oncology is on board for possible whole brain radiation, which I agree with, a nd recommend to continue her Keppra 500 mg p.o. b.i.d., as well as her tapering dose of dexamethasone 10 mg IV q. 8. Will recommend her to get physical therapy, possibly in TCU or subacute rehabilitati on. At this time, continue with current present medical management. Victorino Paz MD cc: [id number] TT: 02/19/2017 18:01:38 Confirmation # [id number] Dictation # [id number] jn
--- NOTE | 2017-02-19 23:43 | CON ---
DATE: 02/19/2017 The patient is in room 361, bed 2. REASON FOR CONSULTATION: This is a 61-year-old female who underwent surgery x 2 for removal of the t umor first in the cerebellar area that was causing compression on the aqueduct of Sylvius and causing potential herniation and then removal of 2 other tumors from the frontal areas, which were cystic an d causing compression on the frontal lobe lateral horn and currently now recovering post-surgery. Mahad figueroa also had uncontrolled hypertension status post craniotomy and is recovering from that as well. The path report on the tumor is an adenocarcinoma. I have spoken to the pathologist. We have sent the tissue for further testing including KRAS, EGFR, , PD-L1 testing for molecular analysis, res ults of which are not yet available. The patient is recovering post-surgery nicely. BRIEF CLINICAL HISTORY: This is a 61-year-old female with a history of hypertension, admitted with r ecurrent headache and found to have a mass in the brain, status post craniostomy x 2 with removal of the tumor from the occiput as well as the recent frontal lobe. The patient is hemodynamically stable . Denies any chest pain, shortness of breath, palpitation. The lesions in the brain are metastatic disease, metastatic mucin-producing adenocarcinoma, primary arising from the lung. CAT scans of the chest, abdomen and pelvis showed a lesion in the lung, which is very small, but albeit is most likely the possible source of the metastases. PET/CT scan has not yet been done as the patient is inpatien t. PHYSICAL EXAMINATION: VITAL SIGNS: Stable. T-max is 98.4, heart rate is 77, blood pressure is 100/61. HEENT: Pupils are equally reactive to light and accommodation. Extraocular muscles are intact. Sca r of surgery is healing. NECK: Supple. There is no adenopathy. No jugular venous distention noted. No thyromegaly is noted . LUNGS: Clear to percussion and auscultation. HEART: Reveals S1 and S2 to be normal. No gallop or murmur is heard. ABDOMEN: Soft, nontender. Bowel sounds are present. No rebound, rigidity or guarding is noted. EXTREMITIES: Reveals no cyanosis, clubbing or edema. LABORATORY DATA: Reviewed. White count is 12.2, hemoglobin 11.7, hematocrit 34, platelet count is 2 15,000. Chemistries are within normal limits. MEDICATIONS: Reviewed. She is still on hydralazine p.r.n. and lisinopril 10 mg a day along with met oprolol 12.5 mg a day. Steroids are being gradually tapered as the patient was on high doses prior t o this. ASSESSMENT NOTES AND PLAN: The patient has metastatic adenocarcinoma of the lung to the brain, statu s post resection of at least 3 of the lesions that were seen. The patient's ejection fraction on the echocardiogram showed a left ventricular ejection fraction of 55% with trace mitral regurgitation. I discussed my findings with the patient's PMD, Dr. Darby. We are waiting for molecular analysis wh ich will tell us if the patient can benefit from just molecular targeting such as Tarceva. We will check for T790 mutation to see in the future whether she would be a candidate for drugs an d PD-L1 staining to see at least 10% or more of the cells stained positive for PD-L1 and she may be a candidate for one of the newer immunotherapy drugs such as . Understandably, the prognosis is guarded in view of the metastatic disease and the presentation with metastasis. Despite that, I sti ll think there is reason for guarded optimism with the newer availability of several medications on h and. We will wait for the patient to fully recover over the next ensuing 2-3 weeks before making dec isions for further therapy. We will speak to the patient's daughter as well and I have left my card and cell phone with the patient. Thanking you for allowing me the opportunity to participate in the care of this patient. Lamberto Carranza MD cc: [id number] TT: 02/19/2017 23:42:57 Confirmation # [id number] Dictation # [id number] dewey
[2017-02-20] MEDS: Albuterol-Ipratrop 3 mg / 0.5 (3 ml) UD IH SCH ×4 (01:12→19:14)
--- NOTE | 2017-02-20 01:24 | PN ---
DATE: 02/19/2017 REFERRING PHYSICIAN: Dr. Darby. SUBJECTIVE: The patient is lying in the bed, head at 45 degrees. Day was unremarkable. No headache , no rhinitis. No nausea, vomiting, diarrhea. No leg pain or leg swelling. OBJECTIVE: GENERAL: No acute distress. VITAL SIGNS: Temperature is 98, heart rate 68, respiratory rate is 20, blood pressure 113/62, pulse ox 98% on room air. HEENT: Moist mucous membrane. No ulcer or oral thrush noted. Facial ecchymotic area is improved. Cranial suture line looks okay. LUNGS: Has a fair airflow with few rhonchi. HEART: S1, S2. ABDOMEN: Soft, nontender. No organomegaly. EXTREMITIES: There is no edema. NEUROLOGIC: Awake, alert, follows simple commands. MEDICATIONS: She is on hydralazine 10 mg q.i.d. p.r.n., Decadron 2 mg q.12 hours, DuoNeb q.6 hours, Keppra 500 mg twice a day, metoprolol tartrate 12.5 mg twice a day, Protonix 40 mg daily, Tylenol p.r .n. basis, Zestril 10 mg daily, Zofran on a p.r.n. basis. LABORATORY DATA: Shows hemoglobin 11.7, hematocrit 34.0, WBC 12.2, platelet is 215. Sodium 133, pot assium 4.4, chloride 102, bicarbonate 24, BUN 18, creatinine 0.7, glucose is 123, calcium is 8.9. IMPRESSION AND PLAN: Metastatic adenocarcinoma, primary probably is the lungs, with craniotomy x 2 f rom the frontal as well as occipital area craniotomy, chronic obstructive lung disease, hypertension. Case discussed with neurology. I also spoke to Dr. Darby. Agree with tapering dose of steroids, bronchodilator. Keep head at 45 degrees. Fall precautions. Will benefit from rehabilitation. SCD to lower extremities. Gastric prophylaxis. We will start DVT prophylaxis once cleared by neurology. I will follow. Chica Palmer MD cc: [id number] TT: 02/19/2017 23:46:34 Confirmation # [id number] Dictation # [id number] dewey 02/20/2017 00:24:25
--- NOTE | 2017-02-20 03:52 | PN ---
DATE: 02/19/2017 SUBJECTIVE: The patient is a 61-year-old female. The patient is seen and examined on the bedside, l barney down comfortably, not in acute distress. Still has a mild ecchymotic area around both eyes. No fever, no chills. No nausea, vomiting, or diarrhea. No hematuria or hematochezia. No swelling of the leg. No chest pain, no palpitation. No seizure activity nor headache; getting Keppra for seizur e precautions, and is on Decadron. Discussion done with Dr. Victorino Paz about tapering down of Dec adron. PHYSICAL EXAMINATION: VITAL SIGNS: Temperature 98.5, pulse 77, blood pressure 140/97, respiratory rate 20, oxygenation 100 % on room air. HEENT: Head normocephalic. Has a dressing on the front and back of the head. PERRLA. Extraocular muscles intact. Has some ecchymotic areas around the eye area. Nose patent. Mucous membranes moist . NECK: Supple. No carotid bruit, JVD, or thyromegaly. LUNGS: Clear on auscultation. No adventitious sounds. HEART: S1, S2 positive. Normal rate and rhythm. No murmur. ABDOMEN: Soft, nontender, no megaly. Bowel sounds positive. EXTREMITIES: No edema, no cyanosis. Peripheral pulses are +2 felt bilaterally. NEUROLOGIC: The patient is awake, alert, moving all 4 extremities. Wrvwic-yd-fnyc intact, slight dy smetria on the right when compared to the left, as per Dr. Victorino Paz. MEDICATIONS: Hydralazine, Decadron, Keppra, Lopressor, Protonix, Tylenol, Zestril, Zofran injection s. LABORATORY DATA: White blood cells 12.8, hemoglobin 11.7, hematocrit 34.2, platelets 215. Sodium 13 3, potassium 4.4, BUN 18, creatinine 0.7, glucose 123. ASSESSMENT AND PLAN: The patient is a 61-year-old lady with leukocytosis, anemia, hyperglycemia, his tory of hypertension, hypercholesterolemia, memory problem, has multiple complex cysts/solid masses i n the frontal lobe and right cerebellar hemisphere consistent with metastatic disease, mild hydroceph alus, and tonsillar herniation. Went for suboccipital and frontal craniotomy, with the excision of t he cerebellar tumor and the frontal tumor, was done by Dr. Ward. Pathology showed adenocarcinoma secondary from the lungs. 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 Discussion done with Dr. Victorino steven and Dr. Carranza. Radiation oncologist, Dr. Pardo, is on the case. She is recommending to continu e Keppra, add on a tapering dose of dexamethasone, physical therapy, trying to get TCU or subacute re hab, but according to the social workers, the patient does not have a rehab coverage in her insurance , but the patient is getting physical therapy on the floor. Appreciate you, Dr. Paz, the communic ation report about tapering down of steroids, as he had a discussion with the pharmacist. Length of time discussion done with Dr. Carranza, also. He wanted a PET scan and other type of testin g as outpatient. GI/DVT prophylaxis. Repeat labs. I had length of time in discussion done with the patient's daughter also. Yaneth Darby MD cc: [id number] TT: 02/20/2017 03:51:30 Confirmation # [id number] Dictation # [id number] vn
--- NOTE | 2017-02-20 14:00 | PN ---
DATE: 02/20/2017 The patient is in room 361, bed 2. REASON FOR CONSULTATION AND FOLLOWUP: Uncontrolled hypertension, status post craniotomy, removal of tumor from occipital lobe and redo surgery for removal of tumor from frontal lobe. HISTORY OF PRESENT ILLNESS: The patient is a 61-year-old female with history of hypertension admitte d with recurrent headache, found to have a mass in the brain, status post craniotomy x 2 with removal of tumor from the occipital lobe as well as recently from the frontal lobe. The patient lying flat in bed without any chest pain, shortness of breath, or palpitation. The patient is fully conscious, alert. The origin of the tumor seems to be adenocarcinoma from the lung with metastasis to brain. PHYSICAL EXAMINATION: VITAL SIGNS: Blood pressure 132/89, respirations 18, pulse 70, temperature 98.9. HEAD: Normocephalic. EYES: Pupils normal. Conjunctivae normal. NOSE AND THROAT: Normal. NECK: JVP low. Carotid equal. THORAX: AP diameter normal. LUNGS: Clear. CARDIOVASCULAR: S1, S2. ABDOMEN: Soft, nontender, no organomegaly. Bowel sounds normal. EXTREMITIES: No clubbing, no cyanosis. LABORATORY DATA: Shows WBC 12.2, hemoglobin 11.7, hematocrit 34.0, platelets 215. Sodium 133, potas sium 4.4, BUN 18, creatinine 0.7, random sugar 123, calcium 8.9. 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 The patient's recent echocar diogram showed left ventricular ejection fraction of 55%, trace to mild mitral regurgitation, trace t o mild tricuspid regurgitation. PLAN: Clinically, cardiac status is stable. The patient is on Decadron 2 mg p.o. daily, DuoNeb hand nebulizer therapy, Keppra 500 b.i.d., metoprolol tartrate 12.5 b.i.d., Protonix 40 daily, lisinopril 10 daily. We will continue present therapy and we will follow with you. Chica Fang MD cc: [id number] TT: 02/20/2017 14:00:11 Confirmation # [id number] Dictation # [id number]
--- NOTE | 2017-02-20 15:15 | PN ---
DATE: 02/20/2017 REFERRING PHYSICIAN: Dr. Darby SUBJECTIVE: She is lying in the bed, head at 45 degree, watching TV. No headache, no rhinitis. No nausea, no vomiting, diarrhea, leg pain or leg swelling. OBJECTIVE: GENERAL: No acute distress. VITAL SIGNS: Temp is 98, heart rate is 70, respiratory rate is 20, blood pressure 132/89, pulse ox 1 00% on room air. HEENT: Moist mucous membrane. Crowded airway. NECK: Supple, no JVD, head wound is healing well. LUNGS: Has a fair airflow with rhonchi. HEART: S1 and S2. ABDOMEN: Soft, nontender. No organomegaly. EXTREMITIES: There is no edema. NEUROLOGIC: Awake, alert, follows simple command. MEDICATION: She is on hydralazine 10 mg q.i.d. p.r.n., Decadron 2 mg p.o. daily and tapered dose, Du oNeb q.6 hours, Keppra 500 mg twice a day, metoprolol tartrate 12.5 mg twice a day, Protonix 40 mg da pau, Tylenol p.r.n. basis, Zestril 10 mg daily, Zofran p.r.n. basis. LABORATORY DATA: Shows no new lab is available since yesterday. IMPRESSION AND PLAN: Metastatic adenocarcinoma, probably primary as the lungs have 2 lung nodules. Status post craniotomy. On tapered dose of Decadron. Chronic obstructive lung disease, hypertension . Pulmonary point of view, she is doing okay. Keep head elevated at 45 degrees. Fall precaution. Gastric prophylaxis. Sequential compression devices to lower extremity. Will need to start on deep venous thrombosis prophylaxis when cleared by neurology/neurosurgery. Further oncology care as per Susan Carranza of decision of chemotherapy. May benefit from TRCU type ____ services. Thank you and we will follow with you. Chica Palmer MD cc: [id number] TT: 02/20/2017 15:15:13 Confirmation # [id number] Dictation # [id number] sn
--- NOTE | 2017-02-20 21:38 | PN ---
DATE: 02/20/2017 Hospital visit on the medical floor. For Dr. Carranza. SUBJECTIVE: The patient is a 61-year-old female status post 2 procedures on her brain for tumor helen laly in the cerebellar area causing compression on the aqueduct Silvius with potential herniation and then removal of 2 tumors in the frontal areas and a separate procedure afterwards. She is now sittin g up in bed, in no acute distress, with the patient's tumor known to be adenocarcinoma with further t esting not available as per Dr. Carranza. With this, the patient is now recovering from her craniotom y x 2 procedures without complaint with recommendations by her physicians and medical care providers for rehabilitation. However, I understand this was denied by her insurance company with the patient to be discharged with maximal assist at home. OBJECTIVE: VITAL SIGNS: Temperature 98.5, pulse 76, respirations 20, blood pressure 110/61, pulse ox 98%. HEENT: Unremarkable. Scars of surgery on her scalp are healing well. NECK: Supple. HEART: Regular rate. LUNGS: Clear. ABDOMEN: Soft, nontender. EXTREMITIES: No edema. SKIN: Warm, dry and clear. NEUROLOGIC: She is awake, alert and oriented with equal contact agent bilaterally with toes wiggling freely. LABORATORY DATA: The labs were done yesterday. White blood cell count 12.2, hemoglobin 11.7, hemato crit 34.0, platelet count of 215,000 with a chem metabolic panel showing a nonfasting glucose 123, ot herwise normal chem panel. ASSESSMENT: Metastatic adenocarcinoma to the brain from the lung, status post resection with craniot mary ann x 2, as per Dr. Linn and Dr. Ward. She had leukocytosis, which is now improved, chroni c obstructive pulmonary disease, smoker. PLAN: After conversation with Dr. Carranza, continue present medical regimen with tapering of her Dec adron with waiting approximately 4 weeks post-surgery for consideration of radiation or other modalit ies as indicated. The prognosis for this patient is guarded. We will monitor clinically and with cesar louise with followup in the office in approximately 1 week's time should she be discharged. Corbin Borrego MD cc: [id number] TT: 02/20/2017 21:38:19 Confirmation # [id number] Dictation # [id number] rn
--- NOTE | 2017-02-20 23:02 | PN ---
DATE: 02/20/2017 SUBJECTIVE: The patient is a 61-year-old female. The patient seen and examined at the bedside, look s comfortable. No nausea, vomiting, or diarrhea. No hematuria or hematochezia. No swelling of the leg. No chest pain, no fever, no chills. PHYSICAL EXAMINATION: VITAL SIGNS: Temperature 98, heart rate 70, respiratory rate 20, blood pressure 130/89, pulse oximet ry 100% on room air. HEENT: Head is normocephalic, atraumatic. Has dressing on the front and back of the head. EYES: PERRLA, extraocular muscles are intact, conjunctivae clear. Ecchymosis around the eyeballs. NECK: Supple. No carotid bruit, JVD, or thyromegaly. LUNGS: Has fair airflow with few rhonchi. HEART: S1, S2 positive. ABDOMEN: Soft, nontender. No organomegaly. EXTREMITIES: No edema, no cyanosis. NEUROLOGIC: The patient is awake, alert, follows simple commands. MEDICATIONS: Hydralazine, Decadron, DuoNeb, Keppra, metoprolol, Protonix, Tylenol, Zestril, Zofran. LABORATORY DATA: We do not have recent labs today, but I reviewed old labs. ASSESSMENT AND PLAN: The patient is a 61-year-old lady with metastatic renal carcinoma, probably chandu nancy to the lungs, having 2 lung nodules, status post craniotomy from the front and back. Is on a ta pering dose of Decadron. Chronic pulmonary disease. Fall precautions. Gastric prophylaxis. Sequen tial compression devices of lower extremities. The patient does not need DVT prophylaxis until clear ed by Neurosurgery. Reviewed Dr. Palmer's notes. Reviewed Dr. Corbin Borrego's notes also. Surge ry was done by Dr. Linn and Dr. Ward. According to oncology, the are waiting for 4 weeks p ostoperative surgery for consideration of radiation and other modalities. The prognosis of the patie nt is guarded. We will follow up. Yaneth Darby MD cc: [id number] TT: 02/20/2017 23:02:11 Confirmation # [id number] Dictation # [id number] vn
[2017-02-21] MEDS: Albuterol-Ipratrop 3 mg / 0.5 (3 ml) UD IH SCH ×4 (01:40→19:03)
[2017-02-21 07:02] LABS: ADD MANUAL DIFF? NO
[2017-02-21 07:08] LABS: BASO # 0.01 K/mm3 (0.0-2.0); BASO % 0.1 % (0.0-3.0); EOS % 0.2 % (1.5-5.0); GRAN # 7.15 (1.4-6.5); GRAN % 81.2 % (50.0-68.0); LYMPH # 1.4 (1.2-3.4); LYMPH % 15.9 % (22.0-35.0); MEAN CELL VOLUME 92.5 fL (80.0-105.0); MEAN CORPUSCULAR HEMOGLOBIN 31.3 pg (25.0-35.0); MEAN CORPUSCULAR HGB CONC 33.8 g/dl (31.0-37.0); MEAN PLATELET VOLUME 9.1 fl (7.0-11.0); MONO # 0.2 (0.1-0.6); MONO % 2.6 % (1.0-6.0); PLATELET COUNT 208 10^3/uL (120.0-450.0); RED CELL DISTRIBUTION WIDTH 14.4 % (11.5-14.5); WHITE BLOOD COUNT 8.8 10^3/ul (4.5-11.0)
[2017-02-21 07:48] LABS: ALKALINE PHOSPHATASE 64 U/L (38-133); ALT/SGPT 36 U/L (7-56); AST/SGOT 26 U/L (15-39); BILIRUBIN,TOTAL 0.5 mg/dL (0.2-1.3); BLOOD UREA NITROGEN 22 mg/dL (7-21); CALCIUM 8.8 mg/dL (8.4-10.5); CARBON DIOXIDE 24 mmol/L (21-33); CHLORIDE 102 mmol/L (98-107); GFR AFRICAN-AMERICAN > 60; GLUCOSE,RANDOM 87 mg/dL (70-110); POTASSIUM 4.3 mmol/L (3.6-5.0); SODIUM 133 mmol/L (132-148); TOTAL PROTEIN 5.9 g/dL (5.8-8.3)
[2017-02-21 08:02] VITALS: RESP 18
[2017-02-21 16:31] VITALS: BP 105/50; PULSE 92; TEMP 98; O2SAT 96
--- NOTE | 2017-02-21 19:41 | PN ---
DATE: 02/21/2017 The patient is in room 361, bed 2. REASON FOR CONSULTATION AND FOLLOWUP: Uncontrolled hypertension, status post craniotomy, removal of tumor from occipital lobe and redo surgery for removal of tumor from her frontal lobe. HISTORY OF PRESENT ILLNESS: The patient is a 61-year-old female with history of hypertension, admitt ed with recurrent headache, found to have a mass in the brain, status post craniotomy x 2 with remova l of tumor from the occipital lobe as well as recently from the frontal lobe. The patient has no sym ptoms of any chest pain, shortness of breath, or palpitation. The patient lying comfortably in bed a t present, fully conscious, alert. The region of the tumor seems to be adenocarcinoma from the lung with metastasis to the brain. The patient denies any cardiac symptoms. PHYSICAL EXAMINATION: VITAL SIGNS: Blood pressure 118/77, respirations 18, pulse 70, temperature 98.5. HEAD: Normocephalic. EYES: Pupils normal. Conjunctivae normal. NOSE AND THROAT: Normal. NECK: JVP low. Carotids equal. THORAX: AP diameter normal. LUNGS: Clear. CARDIOVASCULAR: S1, S2. ABDOMEN: Soft, nontender, no organomegaly. EXTREMITIES: No clubbing, no cyanosis. LABORATORY DATA: WBC 8.8, hemoglobin 12.5, hematocrit 37.0, platelet 208. Sodium 133, potassium 4.3 , BUN 22, creatinine 0.8. AST, ALT normal. Total protein and albumin normal, glucose 87, calcium 8. 8. DIAGNOSES: Metastatic adenocarcinoma of the lung with the 4 lesions in the brain, status post cranio geoff and removal of tumor from occipital lobe as well as from left frontal lobe, hypertension, trace to mild mitral regurgitation, trace to mild tricuspid regurg, ejection fraction on echo 55%. PLAN: The patient's blood pressure has been stable. The patient is on metoprolol 12.5 mg b.i.d., li sinopril 10 mg p.o. daily, Protonix 40 daily. The patient's Decadron has been tapered. Blood pressu re is stable. We will continue to follow closely. Chica Fang MD cc: [id number] TT: 02/21/2017 19:40:23 Confirmation # [id number] Dictation # [id number] dominick
--- NOTE | 2017-02-21 23:24 | PN ---
DATE: 02/21/2017 REFERRING PHYSICIAN: Dr. Darby. SUBJECTIVE: She is sitting side of the bed. Night was unremarkable. No headache, no rhinitis, no n ausea, no vomiting, no diarrhea. No leg pain or leg swelling. OBJECTIVE: GENERAL: No acute distress. VITAL SIGNS: Temp is 98, heart rate is 92, respiratory rate is 20, blood pressure 105/50, pulse ox 9 6% on room air. HEENT: Moist mucous membrane. Crowded airway. NECK: Supple. No JVD. LUNGS: Have fair airflow with rhonchi. HEART: S1, S2. ABDOMEN: Soft, nontender. No organomegaly. EXTREMITIES: There is no edema. SKIN: Head wound is healing well. NEUROLOGIC: Awake, alert, follows simple commands. MEDICATIONS: Reviewed and noted. No new changes in medication reported since yesterday. LABORATORY DATA: Shows hemoglobin 12.5, hematocrit 37.0, WBC 8.8, platelet count is 208. Sodium 133 , potassium 4.3, chloride 102, bicarbonate 24, BUN 22, creatinine 0.8, glucose is 87, calcium is 8.8. AST 26, ALT 36, alkaline phosphatase is 64, albumin is 3.0. IMPRESSION AND PLAN: Metastatic adenocarcinoma, probably primary is the lung, status post craniotomy times 2 on tapered dose of Decadron. Also chronic lung disease, hypertension, pulmonary . She will benefit from rehab, but patient is insisting to go home. Family understands that she is fully awake and alert, understands the consequences. Should have radiation oncology and oncology followup as an outpatient. We will make her appointment as an outpatient. Chica Palmer MD cc: [id number] TT: 02/21/2017 23:23:52 Confirmation # [id number] Dictation # [id number]
== END 2017-02-21 20:46 | disposition home or self-care (01) | DRG 25 ==
LOC: ED 15:29 → ERH 16:34 → 3RNO 18:12 → CCU 02-07 12:47 → 2RNO 02-08 21:40 → 5RSO 02-12 07:30 → CCU 02-13 13:01 → 3RNO 02-14 14:14
PROVIDERS: ADMIT Internal Medicine; ATTEND Internal Medicine
PROC: 00BC0ZX Excision of Cerebellum, Open Approach, Diagnostic (ICD-10-PCS; principal; 2017-02-07 07:30)
PROC: 0NB70ZZ Excision of Occipital Bone, Open Approach (ICD-10-PCS; 2017-02-07 07:30)
PROC: 00B00ZZ Excision of Brain, Open Approach (ICD-10-PCS; 2017-02-13)
DX: C79.31 Secondary malignant neoplasm of brain (principal); G93.5 Compression of brain; G93.6 Cerebral edema; G91.9 Hydrocephalus, unspecified; C34.12 Malignant neoplasm of upper lobe, left bronchus or lung; C34.11 Malignant neoplasm of upper lobe, right bronchus or lung; D75.1 Secondary polycythemia; I08.1 Rheumatic disorders of both mitral and tricuspid valves; E83.39 Other disorders of phosphorus metabolism; E83.41 Hypermagnesemia; J44.9 Chronic obstructive pulmonary disease, unspecified; E03.9 Hypothyroidism, unspecified; F17.210 Nicotine dependence, cigarettes, uncomplicated; E78.00 Pure hypercholesterolemia, unspecified; R73.9 Hyperglycemia, unspecified; E78.5 Hyperlipidemia, unspecified; R00.1 Bradycardia, unspecified; I97.3 Postprocedural hypertension; Y83.8 Other surgical procedures as the cause of abnormal reaction of the patient, or of later complication, without mention of misadventure at the time of the procedure

== ENCOUNTER 2017-04-29 10:43 | Emergency (ER) | payer BC, OTHER ==
[2017-04-29 10:43] VITALS: BMI 25.8
[2017-04-29 11:16] VITALS: TEMP 99.1
--- NOTE | 2017-04-29 11:34 | ED PDOC ---
Arrival/HPI - General Chief Complaint: Medical Clearance Time Seen by Provider: 04/29/17 11:30 Historian: Patient - History of Present Illness Narrative History of Present Illness (Text): 04/29/17 11:24 Nicol Brannon is a 62 year old female, whose past medical history includes a brain tumor, cancer, hypertension, partial hysterectomy, and a knee surgery, who presents to the emergency department sent in by PMD for a mediport procedure. Patient denies any pain, vomiting, or any other complaint at this time. PMD: Dr. Darby Activities at Onset: Rest Modifying Factors (Text): None Context: Home Past Medical History - Provider Review Nursing Documentation Reviewed: Yes - Infectious Disease Hx of Infectious Diseases: None - Reproductive Menopause: Yes - Cardiac Hx Hypertension: Yes - Pulmonary Hx Chronic Obstructive Pulmonary Disease (COPD): Yes Hx Lung Cancer: Yes - Neurological Hx Neurological Disorder: No Hx Paralysis: No - HEENT Hx HEENT Disorder: No - Renal Hx Renal Disorder: No - Endocrine/Metabolic Hx Endocrine Disorders: No - Hematological/Oncological Hx Blood Transfusions: Yes Hx Blood Transfusion Reaction: No - Integumentary Hx Dermatological Disorder: No - Musculoskeletal/Rheumatological Hx Musculoskeletal Disorders: Yes - Gastrointestinal Hx Gastrointestinal Disorders: No - Genitourinary/Gynecological Hx Genitourinary Disorders: Yes (HYSTERECTOMY) - Psychiatric Hx Psychophysiologic Disorder: No Hx Depression: No Hx Emotional Abuse: No Hx Physical Abuse: No Hx Substance Use: No - Surgical History Hx Hysterectomy: Yes - Anesthesia Hx Anesthesia Reactions: No Hx Malignant Hyperthermia: No - Suicidal Assessment Feels Threatened In Home Enviroment: No Family/Social History - Physician Review Nursing Documentation Reviewed: Yes Family/Social History: No Known Family HX Smoking Status: Current Some Days Smoker Hx Alcohol Use: No Hx Substance Use: No Hx Substance Use Treatment: No Allergies/Home Meds Allergies/Adverse Reactions: Allergies No Known Allergies Allergy (Verified 04/29/17 10:44) Home Medications: Home Meds Medication Instructions Recorded Confirmed Dexamethasone [Decadron] 2 mg PO DAILY 04/19/17 04/29/17 Pantoprazole [Protonix] 40 mg PO DAILY 04/19/17 04/29/17 levETIRAcetam [Keppra] 500 mg PO BID 04/19/17 04/29/17 Furosemide [Lasix] 40 mg PO DAILY 04/29/17 04/29/17 Review of Systems - Physician Review All systems were reviewed & negative as marked: Yes - Review of Systems Constitutional: Other (Mediport procedure). absent: Fevers, Night Sweats Eyes: absent: Vision Changes ENT: absent: Hearing Changes Respiratory: absent: SOB, Cough Cardiovascular: absent: Chest Pain Gastrointestinal: absent: Abdominal Pain Genitourinary Female: absent: Dysuria, Urine Output Changes Musculoskeletal: absent: Back Pain, Neck Pain Skin: absent: Rash, Pruritis Neurological: absent: Headache, Dizziness Endocrine: absent: Polyuria Hemo/Lymphatic: absent: Easy Bleeding Psychiatric: absent: Depression Physical Exam - Physical Exam Narrative Physical Exam (Text): Constitutional: No acute distress. Head: Normocephalic. Atraumatic. Eyes: PERRL. ENT: Moist mucous membranes. Neck: Supple. Cardiovascular: Regular rate. Chest: No tenderness. Respiratory: Clear to auscultation bilaterally. GI: Soft. Nontender. Nondistended. Back: No CVA tenderness. Musculoskeletal: No tenderness or swelling of extremities. Skin: No rash. Neurologic: Alert, no focal deficit. Vital Signs Reviewed: Yes Vital Signs Temp Pulse Resp BP Pulse Ox 04/29/17 12:14 57 L 16 156/68 H 100 04/29/17 11:10 59 L 16 111/77 99 04/29/17 10:52 99.1 F 73 16 144/97 H 98 Temperature: Afebrile Blood Pressure: Hypertensive Pulse: Regular Respiratory Rate: Normal Appearance: Positive for: Well-Appearing, Non-Toxic, Comfortable Pain Distress: None Mental Status: Positive for: Alert and Oriented X 3 Medical Decision Making ED Course and Treatment: Impression: 62 year old female sent in to emergency department for mediport procedure Plan: -- Reassess and disposition Prior Visits: Notes and results from previous visits were reviewed. Patient came to emergency procedure on 02/02/17 for generalized pressure-like headache for 2 weeks. Patient was admitted to telemetry for further evaluation. Progress Notes: Discussed case with Dr. Darby who did not send patient in but wants to see her in her office tomorrow at 1pm. Discussed case with Dr. Hall who did not send patient in. Discussed case with Dr. Dc Abdalla who states patient is on schedule for , May 02 as outpatient and gave office phone number for patient to call tomorrow to confirm appointment. - Scribe Statement The provider has reviewed the documentation as recorded by the Scribe Regine Schmitz Provider Scribe Attestation: All medical record entries made by the Scribe were at my direction and personally dictated by me. I have reviewed the chart and agree that the record accurately reflects my personal performance of the history, physical exam, medical decision making, and the department course for this patient. I have also personally directed, reviewed, and agree with the discharge instructions and disposition. Disposition/Present on Arrival - Present on Arrival Any Indicators Present on Arrival: No History of DVT/PE: No History of Uncontrolled Diabetes: No Urinary Catheter: No History of Decub. Ulcer: No History Surgical Site Infection Following: None - Disposition Have Diagnosis and Disposition been Completed?: Yes Diagnosis: Procedure and treatment not carried out for other reasons Disposition: HOME/ ROUTINE Disposition Time: 13:25 Patient Plan: Discharge Condition: STABLE Additional Instructions: Go to Dr. Darby's office on 04/[address] Abdalla's office on 04/30 at phone number [phone] and speak with Sasha to confirm your appointment on May 02. Referrals: Yaneth Darby MD [Primary Care Provider] - Follow up with primary
[2017-04-29 13:37] VITALS: BP 145/83; PULSE 67; RESP 18; O2SAT 98
== END 2017-04-29 13:37 | disposition home or self-care (01) ==
LOC: ED 10:43
DX: Z53.29 Procedure and treatment not carried out because of patient's decision for other reasons (principal); F17.210 Nicotine dependence, cigarettes, uncomplicated; I10 Essential (primary) hypertension

== ENCOUNTER 2017-05-03 10:04 | Day surgery (SDC) | payer BC, OTHER ==
[2017-05-03 10:13] VITALS: BMI 26.8
--- NOTE | 2017-05-03 10:39 | ED PDOC ---
Arrival/HPI - General Chief Complaint: Vascular Access Device Problem Time Seen by Provider: 05/03/17 10:11 Historian: Patient, Family - History of Present Illness Time/Duration: Prior to Arrival Associated Symptoms (Text): 05/03/17 10:39 Patient reports to the emergency department to have a vascular access placed for chemotherapy. The note from 3 days ago in the emergency department reports that the patient was supposed to have the access placed yesterday. Patient reports that she arrived to late to have it placed yesterday and came to the emergency department today. Past Medical History - Infectious Disease Hx of Infectious Diseases: None - Cardiac Hx Hypertension: Yes - Pulmonary Hx Chronic Obstructive Pulmonary Disease (COPD): Yes Hx Lung Cancer: Yes - Neurological Hx Neurological Disorder: No Hx Paralysis: No - HEENT Hx HEENT Disorder: No - Renal Hx Renal Disorder: No - Endocrine/Metabolic Hx Endocrine Disorders: No - Hematological/Oncological Hx Blood Transfusions: Yes Hx Blood Transfusion Reaction: No - Integumentary Hx Dermatological Disorder: No - Musculoskeletal/Rheumatological Hx Musculoskeletal Disorders: Yes - Gastrointestinal Hx Gastrointestinal Disorders: No - Genitourinary/Gynecological Hx Genitourinary Disorders: Yes (HYSTERECTOMY) - Psychiatric Hx Psychophysiologic Disorder: No Hx Depression: No Hx Emotional Abuse: No Hx Physical Abuse: No Hx Substance Use: No - Surgical History Hx Hysterectomy: Yes - Anesthesia Hx Anesthesia Reactions: No Hx Malignant Hyperthermia: No - Suicidal Assessment Feels Threatened In Home Enviroment: No Family/Social History - Physician Review Nursing Documentation Reviewed: Yes Family/Social History: Unknown Family HX Smoking Status: Current Some Days Smoker Hx Alcohol Use: No Hx Substance Use: No Hx Substance Use Treatment: No Allergies/Home Meds Allergies/Adverse Reactions: Allergies No Known Allergies Allergy (Verified 04/29/17 10:44) Home Medications: Home Meds Medication Instructions Recorded Confirmed Dexamethasone [Decadron] 2 mg PO DAILY 04/19/17 04/29/17 Pantoprazole [Protonix] 40 mg PO DAILY 04/19/17 04/29/17 levETIRAcetam [Keppra] 500 mg PO BID 04/19/17 04/29/17 Furosemide [Lasix] 40 mg PO DAILY 04/29/17 04/29/17 Review of Systems - Physician Review All systems were reviewed & negative as marked: Yes Physical Exam Vital Signs Temp Pulse Resp BP Pulse Ox 05/03/17 10:16 98.4 F 96 H 18 116/83 100 Temperature: Afebrile Blood Pressure: Normal Pulse: Regular Respiratory Rate: Normal Appearance: Positive for: Well-Appearing, Non-Toxic, Comfortable Pain Distress: None Mental Status: Positive for: Alert and Oriented X 3 - Systems Exam Respiratory/Chest: Present: Clear to Auscultation, Good Air Exchange. No: Respiratory Distress, Accessory Muscle Use Cardiovascular: Present: Regular Rate and Rhythm, Normal S1, S2. No: Murmurs Medical Decision Making ED Course and Treatment: 05/03/17 10:51 waiting for call back from vascular to make disposition 05/03/17 11:13 Patient will have procedures done today as an outpatient at 1 PM Disposition/Present on Arrival - Present on Arrival Any Indicators Present on Arrival: No History of DVT/PE: No History of Uncontrolled Diabetes: No Urinary Catheter: No History of Decub. Ulcer: No History Surgical Site Infection Following: None - Disposition Have Diagnosis and Disposition been Completed?: Yes Diagnosis: Admission for fitting of port-a-cath Disposition: HOSPITALIZED Disposition Time: 11:13 Patient Plan: Observation Condition: GOOD Referrals: PCP,NO [Primary Care Provider] - Follow up with primary
[2017-05-03] MEDS ORDERED: Lidocaine 2% Inj (20ml) ONE (12:41)
[2017-05-03 13:17] LABS: HEMATOCRIT 40.6 % (36.0-48.0); MEAN CELL VOLUME 96.2 fL (80.0-105.0); MEAN CORPUSCULAR HEMOGLOBIN 31.5 pg (25.0-35.0); MEAN CORPUSCULAR HGB CONC 32.8 g/dl (31.0-37.0); MEAN PLATELET VOLUME 10.6 fl (7.0-11.0); RED CELL DISTRIBUTION WIDTH 18.6 % (11.5-14.5)
[2017-05-03 13:23] LABS: ALB/GLOB RATIO 1.2 (1.1-1.8); ALKALINE PHOSPHATASE 64 U/L (38-133); ALT/SGPT 32 U/L (7-56); AST/SGOT 15 U/L (15-39); BILIRUBIN,TOTAL 0.6 mg/dL (0.2-1.3); BLOOD UREA NITROGEN 17 mg/dL (7-21); CALCIUM 9.1 mg/dL (8.4-10.5); CARBON DIOXIDE 23 mmol/L (21-33); CHLORIDE 110 mmol/L (98-107); GFR AFRICAN-AMERICAN > 60; GLUCOSE,RANDOM 74 mg/dL (70-110); POTASSIUM 3.7 mmol/L (3.6-5.0); SODIUM 139 mmol/L (132-148); TOTAL PROTEIN 6.1 g/dL (5.8-8.3)
[2017-05-03 13:26] LABS: INR 0.96 (0.93-1.08); PARTIAL THROMBOPLASTIN TIME 23.3 Seconds (23.7-30.8)
[2017-05-03] MEDS ORDERED: Midazolam 2 MG/2 ML VIAL ONE (13:52)
[2017-05-03] MEDS ORDERED: Oxycodone/Acetaminophen 5/325 mg Tab PO PRN (14:34)
[2017-05-03] MEDS ORDERED: Sodium Chloride 0.45% 1,000 ML IV SCH (14:45)
[2017-05-03 15:59] VITALS: RESP 18; TEMP 98.3; O2SAT 98
[2017-05-03 17:16] VITALS: BP 118/70; PULSE 68
--- NOTE | 2017-05-03 22:02 | VASCULAR ---
PROCEDURE: Ultrasound and fluoroscopic right internal jugular venous access port. CLINICAL HISTORY: Lung carcinoma.Venous port for chemotherapy. PHYSICIAN(S): Dc Abdalla M.D. TECHNIQUE: The relative risks and indications of the procedure were explained to the patient and consent obtained. The patient was placed supine on the arteriogram table and the right neck and chest prepped and draped in the usual sterile fashion. Conscious sedation monitoring was provided throughout the procedure by a nurse. Antibiotics were given prior to the procedure. Under direct ultrasound guidance, the right internal jugular vein was punctured with a micro-puncture set. A 0.035 angled Glidewire was advanced into the IVC. A 4 cm incision was made below the right clavicle and the pocket blunted dissected. A 8 Amharic single-lumen catheter, 22 cm long, was advanced to the SVC/RA junction. The catheter was trimmed and attached to the port. The port aspirates and injects easily. The port was placed in the pocket and closed in 2 layers. The patient tolerated the procedure well. IMPRESSION: Ultrasound and fluoroscopically placed right internal jugular venous access port.
== END 2017-05-03 16:50 | disposition home or self-care (01) ==
LOC: ED 10:04 → SDSVAS 13:38
PROVIDERS: ATTEND Radiology Vascular & Interventional Radiology
DX: C34.90 Malignant neoplasm of unspecified part of unspecified bronchus or lung (principal)
CPT/HCPCS: 36561; 76937; 77001; 80053; 85027; 85610; 85730; 99152; 99284; C1769; C1788; J0690; J1644; J2250; J2405; J3010; J7030; J7040

== ENCOUNTER 2018-05-20 10:16 | Inpatient (IN) | payer OTHER ==
[2018-05-20] MEDS ORDERED: Ipratropium 0.02% Inhal Soln (0.5 mg/2.5 ml) UD IH STA (10:32)
[2018-05-20] MEDS ORDERED: Vancomycin 1gm in NS 250ml 1 GM/250 ML BAG IVPB STA (10:48)
[2018-05-20] MEDS ORDERED: Piperacill/Tazo 4.5gm in NS 4.5 GM/100 ML BAG IVPB STA (10:49)
[2018-05-20] MEDS ORDERED: Acetaminophen 650mg/20.3ml solution UD PO STA (11:00)
[2018-05-20 11:14] LABS: EOS % 0.9 % (1.5-5.0); GRAN # 2.82 (1.4-6.5); GRAN % 86.8 % (50.0-68.0); LYMPH # 0.3 (1.2-3.4); LYMPH % 9.8 % (22.0-35.0); MEAN CELL VOLUME 100.9 fl (80.0-105.0); MEAN CORPUSCULAR HEMOGLOBIN 34.4 pg (25.0-35.0); MEAN CORPUSCULAR HGB CONC 34.1 g/dl (31.0-37.0); MEAN PLATELET VOLUME 10.9 fl (7.0-11.0); MONO # 0.1 (0.1-0.6); MONO % 2.5 % (1.0-6.0); RBC 3.2 10^6/uL (3.5-6.1); RED CELL DISTRIBUTION WIDTH 14.5 % (11.5-14.5); VENOUS BLOOD GAS BASE EXCESS -1.5 mmol/L (0.0-2.0); VENOUS BLOOD GAS PO2 61 mm/Hg (30-55); WHITE BLOOD COUNT 3.3 10^3/ul (4.5-11.0)
[2018-05-20 11:28] LABS: INR 1.11 (0.93-1.08); PARTIAL THROMBOPLASTIN TIME 24.7 Seconds (25.1-36.5); PROTHROMBIN TIME 12.8 SECONDS (9.4-12.5)
[2018-05-20 11:33] LABS: PH,URINE 5.5 (4.7-8.0); URINE BILIRUBIN NEGATIVE (NEGATIVE); URINE BLOOD TRACE-INTACT (NEGATIVE); URINE GLUCOSE (UA) NEGATIVE (NEGATIVE); URINE LEUKOCYTE ESTERASE NEGATIVE Leu/uL (NEGATIVE); URINE PROTEIN TRACE mg/dL (<30 mg/dL); URINE UROBILINOGEN 0.2 E.U./dL (<1 E.U./dL)
[2018-05-20 11:34] LABS: ALB/GLOB RATIO 1.1 (1.1-1.8); ALBUMIN 3.3 g/dL (3.0-4.8); ALT/SGPT 34 U/L (7-56); AST/SGOT 23 U/L (14-36); BLOOD UREA NITROGEN 21 mg/dL (7-21); CALCIUM 9.3 mg/dL (8.4-10.5); GFR AFRICAN-AMERICAN > 60; GFR NON-AFRICAN AMERICAN > 60
[2018-05-20 11:36] LABS: URINE APPEARANCE CLEAR (CLEAR); URINE COLOR YELLOW (YELLOW)
[2018-05-20 11:44] LABS: B-TYPE NATRIURETIC PEPTIDE 133 pg/mL (0-450); TROPONIN I < 0.01 ng/mL
[2018-05-20 11:45] LABS: URINE BACTERIA FEW (NEG); URINE WBC 0 - 2 /hpf (0-6)
--- NOTE | 2018-05-20 12:10 | RAD ---
HISTORY: sob COMPARISON: 05/16/2018 FINDINGS: LUNGS: The nodule seen previously in the left upper lobe are no longer seen. There is no focal infiltrate PLEURA: No significant pleural effusion identified, no pneumothorax apparent. CARDIOVASCULAR: Normal. OSSEOUS STRUCTURES: No significant abnormalities. VISUALIZED UPPER ABDOMEN: Normal. OTHER FINDINGS: None. IMPRESSION: The nodules seen previously in the left upper lobe are no longer seen. There is no focal infiltrate
--- NOTE | 2018-05-20 12:11 | CARD ---
APPROVED REPORT EKG Measurement Heart [id number] <Conclusion> Sinus tachycardia with occasional premature ventricular complexes Possible Left atrial enlargement Borderline ECG
[2018-05-20] MEDS ORDERED: metroNIDAZOLE IV 500 mg/100 ml 500 MG/100 ML BAG IVPB STA (12:14)
--- NOTE | 2018-05-20 12:15 | RAD ---
HISTORY: examine gas pattern COMPARISON: 05/16/2018 FINDINGS: BOWEL: Normal. No obstruction. No free air. BONES: Normal. OTHER FINDINGS: None. IMPRESSION: No active disease.
[2018-05-20] MEDS ORDERED: Albuterol-Ipratrop 3 mg / 0.5 (3 ml) UD IH PRN ×2 (12:54→15:40)
[2018-05-20] MEDS: Lactated Ringer's 1,000 ML IV SCH ×2 (13:00→14:15)
[2018-05-20] MEDS ORDERED: Iohexol 350 MG/100 ML VIAL ONE (13:07)
--- NOTE | 2018-05-20 14:29 | CT ---
PROCEDURE: CT Chest with contrast (Pulmonary Angiogram) HISTORY: sob/ r/o dvt COMPARISON: PET-CT 01/20/2018 TECHNIQUE: Axial computed tomography images were obtained of the chest in the pulmonary arterial phase of enhancement. Coronal and sagittal reformatted images were created and reviewed. Intravenous contrast dose: 100 cc of Omni 350 Radiation dose: Total exam DLP = 429 mGy-cm. This CT exam was performed using one or more of the following dose reduction techniques: Automated exposure control, adjustment of the mA and/or kV according to patient size, and/or use of iterative reconstruction technique. FINDINGS: PULMONARY ARTERIES: Unremarkable. No pulmonary embolism. AORTA: No acute findings. No thoracic aortic aneurysm. LUNGS: Multiple pulmonary nodules are seen in the periphery of the left lower and left upper lobes. Larger nodules are seen adjacent to the mediastinum. The largest 26 mm nodule is seen in the left lower lobe on image 94 series 5. Emphysema and fibrotic changes are seen in both upper lobes PLEURAL SPACES: Unremarkable. No effusion or pneuomothorax. HEART: Unremarkable. No cardiomegaly. No significant pericardial effusion. LYMPH NODES: Calcified lymph nodes are seen in the mediastinum. BONES, CHEST WALL: Unremarkable. No fracture or destructive lesion OTHER FINDINGS: Unremarkable. IMPRESSION: Multiple pulmonary nodules in the left lung. Emphysema and fibrotic changes in both upper lobes. No evidence of pulmonary embolus
[2018-05-20] MEDS ORDERED: Albuterol-Ipratrop 3 mg / 0.5 (3 ml) UD IH ONE (15:17)
--- NOTE | 2018-05-20 15:17 | CP.PCM.CON ---
History of Present Illness - History of Present Illness History of Present Illness: 63yo female PMHx metastatic NSCLC stage 4 with brain metastases s/p craniotomy with resection of the lesions admitted for shortness of breath. Patient was sent in from infusion clinic where she was meant to receive chemotherapy however she was sent to the ER as she was having trouble breathing. Patient reported that she was also having b/l feet swelling and that her shoes could not fit over the past 3 days. Patient has also been having episodes of confusion. She complained of dizziness, nausea, and some diarrhea over the past 2 days. Denied any headache, fever, chills, chest pain, SOB, cough, abd pain, nausea, vomiting, constipation, dysuria, hematuria, pain in her legs b/l. PMHx: as per HPI Meds: pls see chart ALL: NKDA PSocHx: denies EToH/drug use. Smokes tobacco FamHx: noncontributory Review of Systems - Review of Systems All systems: reviewed and no additional remarkable complaints except Review of Systems: as per HPI Past Patient History - Infectious Disease Hx of Infectious Diseases: None - Past Social History Smoking Status: Current Some Days Smoker - CARDIAC Hx Hypertension: Yes - PULMONARY Hx Chronic Obstructive Pulmonary Disease (COPD): Yes Hx Lung Cancer: Yes - NEUROLOGICAL Hx Neurological Disorder: No Hx Paralysis: No - HEENT Hx HEENT Problems: No - RENAL Hx Chronic Kidney Disease: No - ENDOCRINE/METABOLIC Hx Endocrine Disorders: No - HEMATOLOGICAL/ONCOLOGICAL Hx Blood Transfusions: Yes Hx Blood Transfusion Reaction: No - INTEGUMENTARY Hx Dermatological Problems: No - MUSCULOSKELETAL/RHEUMATOLOGICAL Hx Musculoskeletal Disorders: Yes - GASTROINTESTINAL Hx Gastrointestinal Disorders: No - GENITOURINARY/GYNECOLOGICAL Hx Genitourinary Disorders: Yes (HYSTERECTOMY) - PSYCHIATRIC Hx Psychophysiologic Disorder: No Hx Depression: No Hx Emotional Abuse: No Hx Physical Abuse: No Hx Substance Use: No - SURGICAL HISTORY Hx Hysterectomy: Yes Other/Comment: brain surgery - ANESTHESIA Hx Anesthesia Reactions: No Hx Malignant Hyperthermia: No Meds Allergies/Adverse Reactions: Allergies Allergy/AdvReac Type Severity Reaction Status Date / Time No Known Allergies Allergy Verified 05/20/18 14:01 - Medications Medications: Current Medications Albuterol/Ipratropium (Duoneb 3 Mg/0.5 Mg (3 Ml) Ud) 3 ml IH Q4H PRN PRN Reason: Shortness of Breath Physical Exam - Constitutional Appears: Non-toxic, No Acute Distress - Head Exam Head Exam: ATRAUMATIC, NORMAL INSPECTION, NORMOCEPHALIC - Eye Exam Eye Exam: EOMI, Normal appearance, PERRL. absent: Conjunctival injection, Scleral icterus Pupil Exam: NORMAL ACCOMODATION - ENT Exam ENT Exam: Mucous Membranes Moist - Respiratory Exam Respiratory Exam: Wheezes (b/l), NORMAL BREATHING PATTERN. absent: Accessory Muscle Use, Respiratory Distress - Cardiovascular Exam Cardiovascular Exam: +S1, +S2 - GI/Abdominal Exam GI & Abdominal Exam: Normal Bowel Sounds, Soft - Rectal Exam Rectal Exam: Deferred - Extremities Exam Extremities exam: Positive for: normal inspection, pedal edema (+2 b/l) - Neurological Exam Neurological exam: Alert, Oriented x3 - Psychiatric Exam Psychiatric exam: Flat Affect - Skin Skin Exam: Dry, Intact Results - Vital Signs Recent Vital Signs: Last Vital Signs Temp 100.4 F H 05/20/18 13:50 Pulse 105 H 05/20/18 13:50 Resp 20 05/20/18 13:50 BP 112/70 05/20/18 13:50 Pulse Ox 93 L 05/20/18 13:50 - Labs Result Diagrams: 05/20/18 10:45 05/20/18 10:45 Assessment & Plan - Assessment and Plan (Free Text) Assessment: 63yo female PMHx metastatic NSCLC stage 4 with brain metastases s/p craniotomy with resection of the lesions admitted for shortness of breath. CTA negative for PE. CXR showed nodules seen previously in the left upper lobe are no longer seen and no focal infiltrate. Abd xray negative. Patient restarted on her home medications with Duoneb q6 prn SOB. f/u brain MRI w/ contrast. f/u cultures. Consult neuro, ID, pulm- appreciate reccs. Continue management as per primary. Discussed with Dr. Dillon Hdez PGY2
[2018-05-20] MEDS ORDERED: MethylPREDNISolone 40 mg Vial IVP SCH ×2 (15:45→22:00)
[2018-05-20 16:00] VITALS: BMI 26.9
[2018-05-20] MEDS ORDERED: Pneumococcal 23-Valent Vaccine IM ONE (16:00)
[2018-05-20] MEDS ORDERED: MethylPREDNISolone 40 mg Vial IM STA (17:07)
[2018-05-20] MEDS ORDERED: MethylPREDNISolone 40 mg Vial IVP STA (17:07)
--- NOTE | 2018-05-20 17:22 | CON ---
NEUROLOGY CONSULT CHIEF COMPLAINT: History of brain mets and confusion. 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 She was found to have an elevated low platelet count of 51 and pancytopenic, and recent elevated BUN of 30. Lactate dehydrogenase is 869, which is elevated as well. No acute events overnight. She is currently resting at bed with nasal cannula oxygen. She has elevated temperature of 100.4. PAST MEDICAL HISTORY: As above. SOCIAL HISTORY: No illicit drug use or EtOH abuse. She is a daily smoker. FAMILY HISTORY: Noncontributory. ALLERGIES: NO KNOWN DRUG ALLERGIES. REVIEW OF SYSTEMS: Fourteen-point review of systems negative except as per the HPI. MEDICATIONS: Reviewed by nurse per reconciliation sheet. PHYSICAL EXAMINATION: VITAL SIGNS: Temperature 100.4, pulse rate of 105, blood pressure 112/70, respiratory rate of 20, oxygen saturation 93% by room air. GENERAL: The patient is lethargic, in no acute distress. HEENT: Head is atraumatic, normocephalic. PERRLA. Extraocular muscles intact. NECK: Supple. No JVD. No adenopathy noted. LUNGS: Clear to auscultation. No adventitious sounds. HEART: S1 and S2. Normal rate and rhythm. No murmurs, rubs, or gallops. ABDOMEN: Soft, nontender, and nondistended. Bowel sounds are present. EXTREMITIES: No clubbing. No cyanosis. Peripheral pulses are 2+ felt bilaterally. NEUROLOGIC: The patient is lethargic, but follows simple commands, in no acute distress. Cranial nerves II through XII intact. Motor exam: Moves all the extremities equally. A mild subtle right-sided weakness compared to the left. Sensory exam: Light touch, pinprick diffuse up to the calves bilaterally. Decreased vibration of the toes. DTRs are 2+ throughout, 1 at the ankles. Coordination: [id number] intact. No dysmetria noted. Gait is deferred for now. LABORATORY DATA: Sodium of 137, potassium 4, chloride of 106, carbon dioxide 21. BUN of 21, creatinine of 0.9. Random glucose of 74. Elevated lactate dehydrogenase of 869. ASSESSMENT AND PLAN: This is a 63-year-old woman with past medical history of metastatic non-small cell carcinoma stage IV with brain metastasis, status post craniotomy with resection of the lesions, 09/24/2017, PET scan revealed possible osseous metastasis, on chemotherapy. The patient comes in for generalized weakness, shortness of breath, and some confusion. Her confusion is secondary to underlying brain metastasis, superimposed on underlying chronic medical problems. She also has underlying fever and pancytopenia which could be underlying sepsis going on. We recommend a CAT scan of the chest and to get blood cultures. In addition, we will continue with Keppra 500 mg p.o. b.i.d. for seizure prophylaxis and brain metastasis, Namenda 10 mg p.o. at bedtime for cognition, delirium precaution advised, and we will obtain an MRI of the brain with and without contrast. Continue current present medical management. Thank you for this consult. Victorino Paz MD
[2018-05-20] MEDS: LUBIPROSTONE 24 MG PO SCH (17:23)
[2018-05-20] MEDS ORDERED: Vancomycin 1gm in NS 250ml 1 GM/250 ML BAG IVPB SCH (18:45)
[2018-05-20] MEDS: Piperacillin/Tazobact 3.375 gm 100 ML IVPB SCH (18:55)
[2018-05-20] MEDS ORDERED: Albuterol-Ipratrop 3 mg / 0.5 (3 ml) UD IH SCH (20:00)
[2018-05-20] MEDS: levoFLOXacin 500 mg in D5W 500 MG/100 ML BAG IVPB SCH (21:05)
[2018-05-20] MEDS: MethylPREDNISolone 40 mg Vial IVP SCH (22:07)
--- NOTE | 2018-05-21 00:10 | HP ---
CHIEF COMPLAINTS: Fever, shortness of breath. HISTORY OF PRESENT ILLNESS: Ms. Nicol Brannon, 63-year-old female with history of metastatic non-small cell lung carcinoma stage IV with brain metastasis, status post craniotomy, resection of the lesion in 2017. PET scan revealed possibly osseous metastasis, on chemotherapy. Cognitive impairment due to brain mets. Came with worsening confusion, shortness of breath, fever, which is currently getting treatment on the medical floor. She was found to have ab. platelet count of 51 and pancytopenia. s/p chemotherapy. Recently elevated BUN, lactate dehydrogenase is 869. No acute event happened as per the patient. She has elevated temperature 100.4. was sitting on the bedside also. PAST MEDICAL HISTORY: As above, history of COPD, asthma, lung cancer with metastasis to the brain, brain surgery, getting chemotherapy. SOCIAL HISTORY: No recent drugs or ethanol abuse, but still smoking. FAMILY HISTORY: Father and mother, noncontributory. ALLERGIES: THE PATIENT IS NOT ALLERGIC WITH ANY MEDICATION. REVIEW OF SYSTEMS: The patient is seen and examined on the bedside, looking comfortable. No nausea, vomiting, diarrhea. No hematuria or hematochezia. No dysuria. No hematuria. PHYSICAL EXAMINATION: VITAL SIGNS: Temperature 100.4, pulse rate 105, blood pressure 112/70, respiratory rate 20, oxygen saturation 93% on room air. HEENT: Head normocephalic, atraumatic. Has scar amber of a surgery on the head. Eyes PERRLA. Extraocular muscles intact. Conjunctivae clear. Nose patent. Mucous membrane moist. NECK: Supple. No carotid bruit. No JVD or thyromegaly. LUNGS: Clear to auscultation. No adventitious sounds. HEART: S1 and S2 positive. ABDOMEN: Soft. Bowel sounds positive. No organomegaly. EXTREMITIES: No edema. No cyanosis. NEUROLOGICAL: The patient is awake and alert, but confused. Following simple commands. In not acute distress. Cranial nerves II through XII grossly intact. Moves all 4 extremities. Decreased vibration of the toes. DTRs are +2 throughout. LABORATORY DATA: Sodium 137, potassium 4, BUN 21, creatinine 0.9, chloride 106, carbon dioxide 21, glucose 74. ASSESSMENT AND PLAN: Ms. Nicol Brannon is a 63-year-old lady with multiple medical problems, has lung cancer with metastatic non-small cell carcinoma stage IV with brain metastasis, status post craniotomy with resection of the lesion, nausea, fever, pancytopenia, rule out sepsis. Neurologist is on the case. Neurology recommended CAT scan of the chest and the head, cultures. Continue with Keppra. Seizure prophylaxis. Brain metastasis. Namenda at bedtime for cognition and delirium precautions advised. We will plan MRI of the brain and without contrast. Continue current present treatment. The patient went for CAT scan of the chest also, reviewed by me. Discussion done with the patient's and the patient. Gastrointestinal, deep venous thrombosis prophylaxis. I am the patient's primary care physician dictating history and physical for 05/20/2018. The patient was seen and examined on 05/20/2018 on the bedside in the telemetry. We will follow up. Yaneth Darby MD MTDD
[2018-05-21] MEDS: Piperacillin/Tazobact 3.375 gm 100 ML IVPB SCH ×5 (01:31→23:26)
[2018-05-21] MEDS: MethylPREDNISolone 40 mg Vial IVP SCH ×3 (06:00→21:34)
[2018-05-21 06:38] LABS: HEMOGLOBIN 10.3 g/dL (12.0-16.0); MEAN CELL VOLUME 100.7 fl (80.0-105.0); MEAN CORPUSCULAR HEMOGLOBIN 34.6 pg (25.0-35.0); MEAN CORPUSCULAR HGB CONC 34.3 g/dl (31.0-37.0); MEAN PLATELET VOLUME 10.4 fl (7.0-11.0); RBC 2.98 10^6/uL (3.5-6.1); RED CELL DISTRIBUTION WIDTH 14.3 % (11.5-14.5); WHITE BLOOD COUNT 3.3 10^3/ul (4.5-11.0)
[2018-05-21 06:58] LABS: IRON 58 ug/dL (45-180)
[2018-05-21 07:08] LABS: % IRON SATURATION 25 % (20-55); TOTAL IRON BINDING CAPACITY 227 ug/dL (265-497)
[2018-05-21 07:13] LABS: BLOOD UREA NITROGEN 17 mg/dL (7-21); CALCIUM 9.3 mg/dL (8.4-10.5); GFR AFRICAN-AMERICAN > 60; GFR NON-AFRICAN AMERICAN > 60; HDL CHOLESTEROL 84 mg/dL (29-60)
[2018-05-21] MEDS ORDERED: Barium Sulfate Susp 2.1% w/v, 2.0% w/w 450 mL Bottle PO ONE (07:19)
[2018-05-21 07:23] LABS: LDL CHOLESTEROL 79 mg/dL (0-129)
[2018-05-21 07:27] LABS: PLATELET COUNT 42 10^3/uL (120.0-450.0)
--- NOTE | 2018-05-21 08:40 | CON ---
DATE: 05/20/2018 LOCATION: Patient was seen earlier today in the emergency room. CHIEF COMPLAINT: Weakness times several days. HISTORY OF PRESENT ILLNESS: This is a 63-year-old female seen earlier today in the emergency room with non-small cell lung cancer stage IV has had craniotomy in the past in 09/2017, he had a positive PET scan for osseous metastasis, on chemotherapy, with cognitive impairment, who was admitted to the emergency room, seen in the emergency room, patient is confused. Did have a fever, Infectious Disease consultation requested. REVIEW OF SYSTEMS: A 12-point review of systems is performed. Patient did have a fever and shortness of breath. No abdominal pain was reported. She looks confused. PAST MEDICAL HISTORY: Significant for hypertension, seizures, coronary artery disease, high cholesterol, stage IV lung cancer with metastasis to the brain. PAST SURGICAL HISTORY: Significant for hysterectomy, right-sided chest wall Port-A-Cath placement, and a craniotomy. SOCIAL HISTORY: Patient is a long-time smoker, has had chemotherapy. ALLERGIES: HAS NO KNOWN ALLERGIES. MEDICATIONS AT HOME: Include Keppra, Protonix, Namenda, Zestril, Lasix. Patient is also on Decadron. PHYSICAL EXAMINATION: GENERAL: She is in bed, appearing chronically ill, debilitated. VITAL SIGNS: Temperature of 100.9; respiratory rate of 20; heart rate of 105, it goes up to 130; blood pressure of 112/70, it was down to 91/62; saturation was 93%, now true saturation is down to 90% saturation. HEENT: Unremarkable. NECK: Supple. LUNGS: Have decreased breath sounds. HEART: Normal S1 and S2. ABDOMEN: Soft. No rebound. No guarding. LABORATORY DATA: Reveals a white count of 3.8, hemoglobin of 11, platelets of 61. BUN is 21, creatinine 0.9. . The patient had a chest x-ray infiltrates were seen, nodules as previously were seen. Patient had a CAT scan of the chest, no emboli, multiple pulmonary nodules, . ASSESSMENT AND PLAN: This is a 63-year-old female with non-small cell lung cancer stage IV with brain metastasis and with hypertension, seizures, tachycardia, hypoxia, . Severe sepsis, secondary to andrea-care associated pneumonia bacteremia. We will treat the patient with vancomycin and Zosyn. Patient is at risk for developing opportunistic infections, we will speak to Dr. Paz regarding workup results. We will follow closely with you. Overall prognosis is quite poor. Serge Kruse MD
[2018-05-21] MEDS ORDERED: Gadodiamide 287 MG/ML VIAL (15ML) IV ONE (10:22)
[2018-05-21] MEDS ORDERED: Iohexol 350 MG/100 ML VIAL ONE (10:37)
--- NOTE | 2018-05-21 11:01 | MRI ---
PROCEDURE: MRI BRAIN WITH AND WITHOUT CONTRAST HISTORY: brain mets/confusion COMPARISON: 10/10/2017 MRI TECHNIQUE: Multiplanar, multisequence MR images of the brain were obtained with and without intravenous contrast enhancement. 15 cc of Omniscan FINDINGS: HEMORRHAGE: None DWI: No evidence of an acute or early subacute infarction. BRAIN PARENCHYMA: Postoperative cavities are again seen in both frontal lobes with a thin rim of hemosiderin. This finding is unchanged. Chronic microvascular changes are seen. There is a suboccipital craniotomy defect with a 4 cm fluid collection. This is unchanged. ENHANCEMENT: No abnormal intracranial enhancement. VENTRICLES: Unremarkable. No hydrocephalus. CRANIUM: Unremarkable. ORBITS: Grossly unremarkable. PARANASAL SINUSES/MASTOIDS: Clear VASCULAR SYSTEM: Skull base flow voids intact. OTHER FINDINGS: None . IMPRESSION: Postoperative changes which are unchanged in appearance. There is no evidence of metastatic disease
[2018-05-21] MEDS: LUBIPROSTONE 24 MG PO SCH ×2 (11:32→17:54)
[2018-05-21] MEDS: Potassium Chloride 20 mEq ER Tab PO SCH (11:33)
[2018-05-21] MEDS: Pantoprazole 40 mg EC Tab PO SCH (11:33)
[2018-05-21] MEDS: levoFLOXacin 500 mg in D5W 500 MG/100 ML BAG IVPB SCH (11:33)
[2018-05-21] MEDS: Vancomycin 1gm in NS 250ml 1 GM/250 ML BAG IVPB SCH ×2 (12:57→21:34)
--- NOTE | 2018-05-21 13:06 | CT ---
PROCEDURE: CT Abdomen and Pelvis with contrast HISTORY: r/o mets COMPARISON: None. TECHNIQUE: Contrast dose: 100 cc of Omni 350 Radiation dose: Total exam DLP = 1108 mGy-cm. This CT exam was performed using one or more of the following dose reduction techniques: Automated exposure control, adjustment of the mA and/or kV according to patient size, and/or use of iterative reconstruction technique. FINDINGS: LOWER THORAX: Unremarkable. LIVER: Unremarkable. No gross lesion or ductal dilatation. GALLBLADDER AND BILE DUCTS: Unremarkable. PANCREAS: Unremarkable. No gross lesion or ductal dilatation. SPLEEN: Unremarkable. ADRENALS: Unremarkable. No mass. KIDNEYS AND URETERS: Unremarkable. No hydronephrosis. No solid mass. VASCULATURE: There is a very large clot in the inferior vena cava measuring 11 cm in length. This is best seen on image 66 in the coronal plane. This extends from the renal veins to the bifurcation of the IVC. The patient's nurse was notified of this finding at 1 p.m. BOWEL: Unremarkable. No obstruction. No gross mural thickening. APPENDIX: Normal appendix. PERITONEUM: Unremarkable. No free fluid. No free air. LYMPH NODES: Unremarkable. No enlarged lymph nodes. BLADDER: Unremarkable. REPRODUCTIVE: Unremarkable. BONES: No acute fracture. OTHER FINDINGS: None. IMPRESSION: Large clot in the inferior vena cava measuring 11 cm extending from the renal veins to the bifurcation.
[2018-05-21 13:11] LABS: FOLATE > 20.0 ng/mL
--- NOTE | 2018-05-21 14:04 | PN ---
DATE: 05/21/2018 NEUROLOGY FOLLOWUP CHIEF COMPLAINT: Followup for confusion. SUBJECTIVE: The patient is seen and examined at bedside, had some wheezing bilaterally. ID consult appreciated. Likely, as mentioned, there is some severe sepsis due to probably she has some underlying sepsis secondary to healthcare-associated pneumonia and bacteremia. The patient is on vancomycin and Zosyn. MRI of the brain was done, which showed no evidence of any metastatic disease, just some postoperative changes from her craniotomy in the past and chronic ischemic changes, but no metastatic disease at all. Just postoperative changes were seen on the MRI of the brain. She is pancytopenic, but today's blood pressure is 94/64, which is low. PAST MEDICAL HISTORY: History of metastatic non-small lung carcinoma stage IV with brain metastasis, status post craniotomy with resection of the lesions on 09/24/2017 with PET scan revealing possible osseous metastasis on chemotherapy. REVIEW OF SYSTEMS: Fourteen-point review of systems is negative except as per the HPI. ALLERGIES: NO KNOWN DRUG ALLERGIES. FAMILY HISTORY: Noncontributory. SOCIAL HISTORY: Daily smoker. No illicit drug use or EtOH abuse. MEDICATIONS: Reviewed by nurse reconciliation sheet. PHYSICAL EXAMINATION: VITAL SIGNS: Temperature 98, pulse rate of 84, blood pressure 94/64, respiratory rate of 18, oxygen saturation 100% by nasal cannula. GENERAL: The patient is lying in bed, in no acute distress. HEENT: Atraumatic, normocephalic. PERRLA. Extraocular muscles intact. NECK: Supple. No JVD, no adenopathy noted. LUNGS: Clear to auscultation. No adventitious sounds. HEART: S1 and S2. Normal rate and rhythm. No murmurs, rubs or gallops. ABDOMEN: Soft, nontender and nondistended. Bowel sounds are present. EXTREMITIES: No clubbing. No cyanosis. Peripheral pulses 2+ felt bilaterally. NEUROLOGIC: The patient is alert and oriented to person and place. Recall after 5 minutes is 0/3. Poor attention span. Slow thought process. Cranial nerves II through XII intact. Speech is fluent without any aphasia. Motor exam: Moves all extremities equally. Has mild right-sided weakness compared to the left. Sensory exam: Light touch and pinprick are slightly decreased up to the calves bilaterally. Decreased vibration of the toes and knees. DTRs are 2+ throughout, 1 at both ankles. Coordination: [id number] intact. No dysmetria noted. Gait is deferred for now. LABORATORY DATA: Sodium of 138, potassium 3.8, chloride of 106, carbon dioxide of 20, BUN of 17, creatinine 0.8, random glucose of 184. A1c of 5.9. ASSESSMENT AND PLAN: A 63-year-old woman with past medical history of metastatic non-small carcinoma stage IV with brain metastasis, status post craniotomy, resection of the lesions. On 09/24/2017, PET scan revealed possible osseous metastasis, on chemotherapy. The patient comes in with generalized weakness, shortness of breath and some confusion. Has some underlying chronic obstructive pulmonary disease exacerbation with possible underlying hospital-acquired pneumonia and sepsis and is pancytopenic. Her confusion is likely secondary possible to underlying chronic medical problems with underlying possible sepsis, toxic metabolic encephalopathy as well superimposed on mild cognitive impairment. At this time, the MRI of the brain showed no evidence of any metastatic disease. There are postoperative changes from resection of the cerebral lesions. At this time, we will recommend to, 1. Continue with Keppra 500 mg p.o. b.i.d. for seizure prophylaxis. 2. Namenda 10 mg p.o. at bedtime for cognition. 3. Delirium precautions advised. 4. Follow up with Infectious Disease's recommendations in regards to underlying sepsis. 5. Continue with current present medical management and Physical Therapy/Occupational Therapy evaluation. Thank you for this followup. Victorino Paz MD
[2018-05-21] MEDS ORDERED: Enoxaparin 60 mg Syringe SC SCH (14:45)
--- NOTE | 2018-05-21 16:22 | CON ---
DATE: 05/21/2018 Consultation dated 05/21/2018 at 2:50 p.m. CHIEF COMPLAINT/HISTORY OF PRESENT ILLNESS: This is a 63-year-old female with stage IV non-small cell lung CA who was admitted with shortness of breath. Her history is significant for cranial metastasis resection in 2017. Her workup on admission demonstrates no obvious large pulmonary emboli. Significant nodular peripheral metastasis are noted in the lungs bilaterally. There is an interesting ground glass appearance to the lungs, which maybe related to her current chemotherapy. CT scan of the abdomen and pelvis demonstrates adherent thrombus in the infrarenal IVC, which appears to originate in the left iliac venous system. The patient is experiencing left leg swelling. The location of the thrombus raised the possibility of May-Thurner syndrome. The patient's renal function is normal. The patient is pancytopenic. I had a discussion with Dr. Carranza. Initially, I would recommend Lovenox b.i.d. for her IVC and left iliac DVT. A compression stocking will be placed on her left leg. If her symptoms do not improve, a venogram can be performed in 7-10 days. Unfortunately, the patient is not a good candidate for thrombolysis. Dc Abdalla MD MTDD
--- NOTE | 2018-05-21 16:29 | PN ---
DATE: 05/21/2018 SUBJECTIVE: The patient is seen earlier this morning in 276, bed 1. No fevers and no chills. PHYSICAL EXAMINATION: VITAL SIGNS: Temperature is 98, blood pressure is 120/80, respiratory rate of 18, heart rate of 117. HEENT: Examination of HEENT is unremarkable. NECK: Supple. LUNGS: Have decreased breath sounds. HEART: Normal S1, S2. ABDOMEN: Soft, nontender. LABORATORY DATA: Laboratory examination reveals a white count of 3.3, hemoglobin of 10, platelets of 42. Coagulation is noted. Chemistries reveals a BUN of 17, creatinine of 0.8, procalcitonin 0.05. The urinalysis is noted. Serology is reviewed. Urine for Legionella antigen is negative. Urine cultures no growth. Blood cultures are still pending. Urine Legionella antigen is pending. Review of the medications reveals the patient to be on Levaquin, vancomycin and Zosyn noted. The patient had an MRI of the head, postoperative changes, no evidence of metastatic disease. Dr. Paz's note from this morning is appreciated. Dr. Darby's note is reviewed. ASSESSMENT AND PLAN: A 63-year-old with non-small cell lung cancer stage IV with metastases with bone, on chemotherapy. Admitted with severe sepsis with healthcare-associated pneumonia, must rule out bacteremia. On vancomycin, Zosyn. We will check on the blood cultures which are pending. The patient is also on Levaquin. I am waiting for urine for Legionella antigen. We will make further recommendations. Serge Kruse MD
[2018-05-21] MEDS: Arformoterol 15 mcg/2 ml Inh Sol IH SCH (21:10)
[2018-05-21] MEDS: Budesonide 0.5 mg/2 ml Inhal Susp UD IH SCH (21:10)
[2018-05-21] MEDS: Acetylcysteine 20% Inhal Soln (4ml) INH SCH (21:12)
--- NOTE | 2018-05-22 00:17 | CON ---
DATE: PULMONARY CONSULTATION REFERRING PHYSICIAN: Yaneth Darby MD REASON FOR CONSULTATION: Cough, shortness of breath, COPD, metastatic lung cancer. HISTORY OF PRESENT ILLNESS: This is a 63-year-old female with known history of non-small cell lung cancer with metastatic disease to brain in the past, requiring craniotomy and resection of tumor, also has mets to the bones, being followed by Oncology, been on chemotherapy; comes in with cough, shortness of breath, thrombocytopenia, pancytopenia, had a fever, seen by Infectious Disease and started on antibiotics. Also seen by Neurology. MRI of the head was done which was unremarkable other than postoperative changes. She does occasionally smoke. No nausea, no vomiting, no diarrhea. PAST MEDICAL HISTORY: As per history of present illness. SOCIAL HISTORY: Occasionally still smokes. Denies any alcohol use. FAMILY HISTORY: No significant cardiopulmonary disease reported. ALLERGIES: NONE KNOWN. MEDICATIONS: She is on vitamin D 50,000 units weekly, DuoNeb every 6 hours p.r.n., folic acid 1 mg daily, heparin 5000 units subcutaneous every 12 hours, potassium 20 mEq daily, Keppra 500 mg twice a day, Lasix 20 mg daily, Levaquin 500 mg daily, metoprolol tartrate 25 mg b.i.d., Namenda 10 mg at bedtime, Norvasc 10 mg daily, Protonix 40 mg daily, Solu-Medrol 40 mg every 8 hours, vancomycin 1 g every 12 hours, Zestril 10 mg daily, Zosyn 3.375 g every 6 hours. REVIEW OF SYSTEMS: No headache, no rhinitis. Has cough, shortness of breath. No chest pain, no nausea, no vomiting, no diarrhea. Had some ankle swelling on arrival. PHYSICAL EXAMINATION: GENERAL: No acute distress. VITAL SIGNS: Temperature is 98, heart rate is 84, respiratory rate is 18, blood pressure is 130/89, pulse ox 100% on nasal cannula. HEENT: Moist mucous membrane. Crowded airway. NECK: Supple. No JVD. LUNGS: Have scattered rhonchi and wheezing. HEART: S1 and S2. ABDOMEN: Soft, nontender. No organomegaly. EXTREMITIES: No edema. NEUROLOGIC: Awake, alert, follows simple command. LABORATORY DATA: Shows hemoglobin 10.3, hematocrit 30, WBC 3.3, platelet count is 42. Had a VBG done yesterday, shows pH 7.4, pCO2 37, O2 of 61. Sodium 138, potassium 3.8, chloride 106, bicarbonate 20, BUN 17, creatinine 0.8, glucose 184, hemoglobin A1c 5.9, calcium is 9.3. TIBC 227. TSH is 0.16. Had MRI of the brain done which shows postop changes that was unremarkable. CT of the chest shows multiple lung nodules. IMPRESSION AND PLAN: Chronic obstructive lung disease, non-small cell lung cancer with metastatic disease, history of craniotomy for resection of the tumor, active smoker, sepsis. Pulmonary point of view, we will add Brovana, Pulmicort and Mucomyst twice a day, p.r.n. albuterol/Atrovent nebulizer. Gastric prophylaxis. Deep venous thrombosis prophylaxis. Antibiotics as per Infectious Disease. Aspiration precaution. Thank you and we will follow with you. Chica Palmer MD
[2018-05-22] MEDS: Piperacillin/Tazobact 3.375 gm 100 ML IVPB SCH ×4 (05:35→23:47)
[2018-05-22] MEDS: Enoxaparin 60 mg Syringe SC SCH ×2 (05:35→18:14)
[2018-05-22] MEDS: MethylPREDNISolone 40 mg Vial IVP SCH ×3 (05:35→22:04)
[2018-05-22] MEDS: Acetylcysteine 20% Inhal Soln (4ml) INH SCH ×2 (07:47→20:42)
[2018-05-22] MEDS: Arformoterol 15 mcg/2 ml Inh Sol IH SCH ×2 (07:48→20:42)
[2018-05-22] MEDS: Budesonide 0.5 mg/2 ml Inhal Susp UD IH SCH ×2 (07:48→20:44)
--- NOTE | 2018-05-22 08:49 | PN ---
DATE: 05/21/2018 SUBJECTIVE: Patient is a 63-year-old female. Patient was seen and examined at the bedside on 05/21/2018, looking a bit comfortable. No nausea, vomiting, or diarrhea. No hematuria or hematochezia. No headache or dizziness. No chest pain or palpitation. Appetite is appropriate as per patient. PHYSICAL EXAMINATION: VITAL SIGNS: Temperature 98, blood pressure 120/80, respiratory rate 18, heart rate 117. HEENT: Head: Normocephalic, atraumatic. Eyes: PERRLA. Extraocular muscles intact. Conjunctivae clear. Nose: Patent. Mucous membrane moist. NECK: Supple. No carotid bruit, JVD, or thyromegaly. CHEST: Bilaterally symmetrical. HEART: S1 and S2 positive. LUNGS: Clear to auscultation. ABDOMEN: Soft. Bowel sounds present. No organomegaly. EXTREMITIES: No edema. No cyanosis. NEUROLOGIC: Patient is awake and alert. Moving all 4 extremities. No focal deficits. LABORATORY DATA: White blood cells 3.3, hemoglobin 10, hematocrit 42, BUN 17, creatinine 0.8, prolactin 0.05. Urine for Legionella antigen is negative. Urine culture has no growth. Blood culture is still pending. MEDICATIONS: Vancomycin, Zosyn. ASSESSMENT AND PLAN: Ms. Nicol Brannon is a 63-year-old lady with non-small cell lung cancer stage IV with metastases to the bones, on chemotherapy and radiation therapy, admitted with severe sepsis, healthcare-associated pneumonia, rule out bacteremia. Patient is on vancomycin and Zosyn. Blood cultures are done, results are pending. Patient is also on Levaquin. Appreciated Dr. Serge Kruse's note. He said he is still waiting for Legionella antigen. Patient went for MRI of the brain, noted by me. Seen by Dr. Dc Abdalla and Dr. Victorino Paz. History of cranial metastasis resection in 2017. CAT scan of the abdomen and pelvis done adherent thrombus in the infrarenal inferior vena cava, which appeared to originate in the left iliac venous system. The patient is experiencing left leg swelling. The location of the thrombus raises the possibility of May-Thurner syndrome. Venous ultrasound has been ordered by Dr. Dc Abdalla. Patient's renal function is normal. Patient is pancytopenic. Dr. Dc Abdalla had discussion done with Dr. Carranza. Recommended Lovenox b.i.d. for her inferior vena cava and left iliac deep vein thrombosis. A compression stocking will be placed on her left leg. If her symptoms do not improve, a renogram can be performed in 7 to 10 days. But, patient has poor prognosis, not a good candidate for thrombolysis. Continue present treatment. Repeat labs. We will follow up. Yaneth Darby MD MTDSusan
--- NOTE | 2018-05-22 09:03 | CP.PCM.PN ---
Subjective - Date & Time of Evaluation Date of Evaluation: 05/22/18 Time of Evaluation: 09:30 - Subjective [facility]ive[facility] Carranza Patient seen and examined at bedside. Nursing reports no acute events overnight. Patient is ao x 3 and energetic this AM. She denied acute complaints of fever, chills, headache, dizziness, chest pain, SOB, cough, abd pain, nausea , vomiting, bowel/bladder complaints, pain in her legs b/l. Patient is ambulating and eating well and has a good appetite. Objective - Vital Signs/Intake and Output Vital Signs (last 24 hours): Temp Pulse Resp BP Pulse Ox 98.3 F 71 19 102/68 93 L 05/22/18 05:57 05/22/18 05:57 05/22/18 05:57 05/22/18 05:57 05/22/18 07:51 Intake and Output: 05/22/18 05/22/18 06:59 18:59 Intake Total 1960 Output Total 5 Balance 195 - Medications Medications: Current Medications Acetylcysteine (Acetylcysteine 20%) 3 ml INH BIDRESP [facility] Last Admin: 05/22/18 07:47 Dose: 3 ml Albuterol/Ipratropium (Duoneb 3 Mg/0.5 Mg (3 Ml) Ud) 3 ml IH [id number] PRN PRN Reason: Shortness of Breath Last Admin: 05/21/18 06:00 Dose: 3 ml Amlodipine Besylate (Norvasc) 10 mg PO DAILY [facility] Last Admin: 05/21/18 11:31 Dose: Not Given Arformoterol Tartrate (Brovana) 15 mcg IH [id number] [facility] Last Admin: 05/22/18 07:48 Dose: 15 mcg Budesonide (Pulmicort Respules) 0.5 mg IH [id number] [facility] Last Admin: 05/22/18 07:48 Dose: 0.5 mg Enoxaparin Sodium (Lovenox) 60 mg SC 0600,1800 JACQUIE PRN Reason: Protocol Last Admin: 05/22/18 05:35 Dose: 60 mg Ergocalciferol (Drisdol 50,000 Intl Units Cap) 1 cap PO Q7D [facility] Folic Acid (Folic Acid) 1 mg PO DAILY [facility] Last Admin: 05/21/18 12:15 Dose: 1 mg Furosemide (Lasix) 20 mg PO DAILY [facility] Last Admin: 05/21/18 11:31 Dose: 20 mg Piperacillin Sod/Tazobactam Sod (Zosyn 3.375 In Ns 100ml) 100 mls @ 200 mls/hr IVPB Q6 JACQUIE PRN Reason: Protocol Stop: 05/29/18 18:36 Last Admin: 05/22/18 05:35 Dose: 200 mls/hr Levofloxacin/Dextrose (Levaquin 500mg) 500 mg in 100 mls @ 100 mls/hr IVPB DAILY JACQUIE PRN Reason: Protocol Stop: 05/29/18 18:40 Last Admin: 05/21/18 11:33 Dose: 100 mls/hr Vancomycin HCl (Vancomycin 1gm) 1 gm in 250 mls @ 167 mls/hr IVPB Q12 JACQUIE PRN Reason: Protocol Stop: 05/29/18 18:46 Last Admin: 05/21/18 21:34 Dose: 167 mls/hr Levetiracetam (Keppra) 500 mg PO Q12 [facility] Last Admin: 05/21/18 21:33 Dose: 500 mg Lisinopril (Zestril) 10 mg PO DAILY [facility] Last Admin: 05/21/18 11:39 Dose: Not Given Memantine (Namenda) 10 mg PO HS [facility] Last Admin: 05/21/18 21:33 Dose: 10 mg Methylprednisolone (Solu-Medrol) 40 mg IVP Q8 [facility] Last Admin: 05/22/18 05:35 Dose: 40 mg Metoprolol Tartrate (Lopressor) 25 mg PO DAILY [facility] Last Admin: 05/21/18 12:15 Dose: 25 mg Non-Formulary Medication (Lubiprostone [Amitiza]) 24 mg PO BID [facility] Last Admin: 05/21/18 17:54 Dose: Not Given Pantoprazole Sodium (Protonix Ec Tab) 40 mg PO DAILY [facility] Last Admin: 05/21/18 11:33 Dose: 40 mg Potassium Chloride (K-Dur 20 Meq Er Tab) 20 meq PO DAILY [facility] Last Admin: 05/21/18 11:33 Dose: 20 meq - Labs Labs: 05/21/18 06:00 05/21/18 06:00 PT 12.8 SECONDS (9.4-12.5) H 05/20/18 10:45 INR 1.11 (0.93-1.08) H 05/20/18 10:45 APTT 24.7 Seconds (25.1-36.5) L 05/20/18 10:45 - Constitutional Appears: Non-toxic, No Acute Distress - Head Exam Head Exam: ATRAUMATIC, NORMAL INSPECTION, NORMOCEPHALIC - Eye Exam Eye Exam: EOMI, Normal appearance. absent: Conjunctival injection, Scleral icterus Pupil Exam: PERRL - ENT Exam ENT Exam: Mucous Membranes Moist - Neck Exam Neck Exam: Full ROM - Respiratory Exam Respiratory Exam: Clear to Ausculation Bilateral, NORMAL BREATHING PATTERN. absent: Accessory Muscle Use, Rales, Rhonchi, Wheezes, Respiratory Distress - Cardiovascular Exam Cardiovascular Exam: +S1, +S2 - GI/Abdominal Exam GI & Abdominal Exam: Soft, Normal Bowel Sounds. absent: Firm, Guarding, Rigid, Tenderness - Rectal Exam Rectal Exam: Deferred - Extremities Exam Extremities Exam: Normal Inspection. absent: Pedal Edema - Neurological Exam Neurological Exam: Alert, Awake, Oriented x3 - Psychiatric Exam Psychiatric exam: Normal Affect, Normal Mood - Skin Skin Exam: Dry, Intact Assessment and Plan - Assessment and Plan (Free Text) Assessment: 63yo female PMHx metastatic NSCLC stage 4 with brain metastases s/p craniotomy with resection of the lesions admitted for shortness of breath. CTA negative for PE. CT Abd/pelvis significant for large lot in the IVC measuring 11cm extending from renal veins to the bifurcations- f/u venous dopplers b/l. IR reccs apprecaited- patient wearing stockings and on therapeutic lovenox. Thrombocytopenia noted- f/u peripheral smear, fibrinogen, fibring split products. CXR showed nodules seen previously in the left upper lobe are no longer seen and no focal infiltrate. Abd xray negative. Patient restarted on her home medications with Duoneb q6 prn SOB. MRI brain- no mets noted. Cultures prelim negative x 2 blood and negative x 1 urine. Consult neuro, ID, pulm- appreciate reccs. Continue management as per primary. TCU eval f/u. Recommend CT with contrast to examine IVC and iliac vein in [address] Dillon Hdez PGY2
[2018-05-22] MEDS: Potassium Chloride 20 mEq ER Tab PO SCH (09:15)
[2018-05-22] MEDS: Pantoprazole 40 mg EC Tab PO SCH (09:15)
[2018-05-22] MEDS: levoFLOXacin 500 mg in D5W 500 MG/100 ML BAG IVPB SCH (09:16)
[2018-05-22] MEDS: LUBIPROSTONE 24 MG PO SCH ×2 (10:30→18:33)
[2018-05-22] MEDS: Vancomycin 1gm in NS 250ml 1 GM/250 ML BAG IVPB SCH ×2 (10:31→21:37)
[2018-05-22 11:14] LABS: GRAN # 4.32 (1.4-6.5); GRAN % 92.7 % (50.0-68.0); HEMOGLOBIN 10.8 g/dL (12.0-16.0); LYMPH # 0.3 (1.2-3.4); LYMPH % 6.2 % (22.0-35.0); MEAN CORPUSCULAR HEMOGLOBIN 34.3 pg (25.0-35.0); MEAN CORPUSCULAR HGB CONC 34.3 g/dl (31.0-37.0); MEAN PLATELET VOLUME 10.9 fl (7.0-11.0); MONO # 0.1 (0.1-0.6); MONO % 1.1 % (1.0-6.0); PLATELET COUNT 59 10^3/uL (120.0-450.0); RBC 3.15 10^6/uL (3.5-6.1); RED CELL DISTRIBUTION WIDTH 14.2 % (11.5-14.5); WHITE BLOOD COUNT 4.7 10^3/ul (4.5-11.0)
[2018-05-22 11:26] LABS: ALBUMIN 3.2 g/dL (3.0-4.8); ALT/SGPT 31 U/L (7-56); AST/SGOT 38 U/L (14-36); BLOOD UREA NITROGEN 19 mg/dL (7-21); CALCIUM 9.7 mg/dL (8.4-10.5); GFR AFRICAN-AMERICAN > 60; GFR NON-AFRICAN AMERICAN > 60
[2018-05-22 13:05] LABS: PLATELET COUNT MANUAL 77 K/mm3 (120-450)
[2018-05-22 13:07] LABS: LYMPHOCYTE 3 % (22.0-35.0); NEUTROPHIL 97 % (50.0-70.0)
[2018-05-22 13:08] LABS: PLATELET ESTIMATE NORMAL (NORMAL)
--- NOTE | 2018-05-22 14:37 | US ---
HISTORY: Leg pain and swelling. Evaluate for DVT PHYSICIAN(S): Dc Abdalla MD. TECHNIQUE: Duplex sonography and color-flow Doppler with graded compression were used to evaluate the deep venous systems of both lower extremities. FINDINGS: The visualized deep venous systems of both lower extremities are sonographically normal and compressible. Normal wave forms and augmentation are seen. There is no sonographic evidence for deep venous thrombosis in the visualized segments of both lower extremities. IMPRESSION: No sonographic evidence for deep venous thrombosis in the visualized segments of both lower extremities.
--- NOTE | 2018-05-22 16:04 | PN ---
DATE: 05/22/2018 PULMONARY PROGRESS NOTE REFERRING PHYSICIAN: Yaneth Darby MD SUBJECTIVE: She is sitting in the side of the bed, nursing staff at bedside, night was unremarkable. Feels a little better. Decreased cough. No shortness of breath, no headache, no nausea, no vomiting, no diarrhea. No leg pain or leg swelling. OBJECTIVE: GENERAL: In no acute distress. VITAL SIGNS: Temperature is 98, heart rate is 84, respiratory rate is 20, blood pressure 112/73, pulse ox 93% on room air. HEENT: Moist mucous membranes. Crowded airway. NECK: Supple. No JVD. LUNGS: Few scattered rhonchi. Overall fair airflow. HEART: S1 and S2. ABDOMEN: Soft, nontender. No organomegaly. EXTREMITIES: There is no edema. NEUROLOGICAL: Awake and alert. Follows simple commands. MEDICATIONS: She is on Mucomyst inhaled twice a day, Brovana inhaled twice a day, vitamin D 50,000 units weekly, DuoNeb every 6 hours p.r.n., folic acid 1 mg daily, potassium 20 mEq daily, Keppra 500 mg twice a day, Lasix 20 mg daily, Levaquin 500 mg daily, metoprolol tartrate 25 mg daily, Lovenox 60 mg twice a day, Amitiza 24 mg twice a day, Namenda 10 mg daily, Norvasc 10 mg daily, Protonix 40 mg daily, Pulmicort inhaled twice a day, Solu-Medrol 40 mg every 12 hours, vancomycin 1 g IV every 12 hours, Zestril 10 mg daily, Zosyn 3.375 g every 6 hours. LABORATORY DATA: Hemoglobin 10.8, hematocrit 31.5, WBC 4.7, platelets is pending, fibrinogen degradation products more than 40. Sodium 141, potassium 2.8, chloride 106, bicarbonate 22. BUN 19, creatinine 0.9. Glucose 135. Calcium 9.7, magnesium 1.6. AST 38, ALT 31, alkaline phosphatase is 69, albumin is 3.2. TSH is 0.16. Microbiology: Blood culture and urine culture, there is no growth. IMPRESSION AND PLAN: Chronic obstructive lung disease; non-small cell lung cancer with metastases to the bones and brain, requiring craniotomy, resection of tumor; active smoker; sepsis. Pulmonary point of view, doing okay. Continue p.o. and inhaled bronchodilators, keep head at 45 degrees. Gastric and deep vein thrombosis prophylaxes. Oncology followup. Thank you and we will follow with you. Chica Palmer MD
--- NOTE | 2018-05-23 03:15 | PN ---
DATE: 05/22/2018 SUBJECTIVE: Patient is in bed, in no acute distress, nontoxic. PHYSICAL EXAMINATION: VITAL SIGNS: On exam, temperature is 98, blood pressure is 113/80, respiratory rate of 18. HEENT: Unremarkable. NECK: Supple. LUNGS: Have decreased breath sounds. HEART: Normal S1 and S2. ABDOMEN: Soft and nontender. LABORATORY EXAMINATION: Reveals a white count of 4.7. Chemistry reveals a BUN of 19, creatinine of 0.9. Procalcitonin is 0.05. Urinalysis is noted. Urine for Legionella antigen is negative. Microbiology reveals a blood culture is negative. Urine cultures are negative and Dr. Palmer's note is reviewed. Dr. Darby's note is reviewed. ASSESSMENT AND PLAN: This is a 63-year-old female with a non-small cell lung cancer stage IV with metastases to the bone and patient is on chemotherapy now with: 1. Severe sepsis with healthcare-associated pneumonia, negative cultures thus far, on vancomycin and Zosyn and Levaquin, also on Solu-Medrol, day number 2 of antibiotics with negative urine Legionella antigen. Normal procalcitonin. Negative blood cultures. Negative urine cultures. We will follow with you. Serge Kruse MD
[2018-05-23] MEDS: Enoxaparin 60 mg Syringe SC SCH ×2 (05:44→17:41)
[2018-05-23] MEDS: Piperacillin/Tazobact 3.375 gm 100 ML IVPB SCH ×4 (05:44→23:10)
[2018-05-23] MEDS: MethylPREDNISolone 40 mg Vial IVP SCH ×3 (05:44→21:45)
[2018-05-23 06:23] LABS: BASO # 0.01 K/mm3 (0.0-2.0); BASO % 0.2 % (0.0-3.0); GRAN # 3.68 (1.4-6.5); HEMOGLOBIN 10.6 g/dL (12.0-16.0); LYMPH # 0.3 (1.2-3.4); LYMPH % 7.6 % (22.0-35.0); MEAN CELL VOLUME 99.7 fl (80.0-105.0); MEAN CORPUSCULAR HEMOGLOBIN 34.1 pg (25.0-35.0); MEAN CORPUSCULAR HGB CONC 34.2 g/dl (31.0-37.0); MEAN PLATELET VOLUME 10.8 fl (7.0-11.0); MONO # 0.1 (0.1-0.6); MONO % 2.2 % (1.0-6.0); RBC 3.11 10^6/uL (3.5-6.1); RED CELL DISTRIBUTION WIDTH 14.3 % (11.5-14.5); WHITE BLOOD COUNT 4.1 10^3/ul (4.5-11.0)
[2018-05-23 06:55] LABS: ALT/SGPT 40 U/L (7-56); AST/SGOT 45 U/L (14-36); BLOOD UREA NITROGEN 22 mg/dL (7-21); CALCIUM 9.7 mg/dL (8.4-10.5); GFR AFRICAN-AMERICAN > 60; GFR NON-AFRICAN AMERICAN 56
[2018-05-23] MEDS: Acetylcysteine 20% Inhal Soln (4ml) INH SCH ×3 (07:56→20:29)
[2018-05-23] MEDS: Budesonide 0.5 mg/2 ml Inhal Susp UD IH SCH ×3 (07:56→20:30)
[2018-05-23] MEDS: Arformoterol 15 mcg/2 ml Inh Sol IH SCH ×3 (07:56→20:30)
--- NOTE | 2018-05-23 08:15 | CP.PCM.PN ---
Subjective - Date & Time of Evaluation Date of Evaluation: 05/23/18 Time of Evaluation: 08:15 - [facility]ive [facility] Patient seen and examined at bedside. Nursing reported no acute events overnight. Patient reports she no longer has SOB. She is AO x 3 and at baseline as per family. Patient denied acute complaints of fever, chills, headache, dizziness, chest pain, palpitations, cough, abd pain, nausea, vomiting, bowel/ bladder complaints, pain/swelling in her legs b/l. She reports she has been ambulating and is comfortable. Objective - Vital Signs/Intake and Output Vital Signs (last 24 hours): Temp Pulse Resp BP Pulse Ox 97 F L 66 18 113/80 97 05/22/18 18:00 05/22/18 18:00 05/22/18 18:00 05/22/18 18:34 05/22/18 18:00 Intake and Output: 05/23/18 05/23/18 06:59 18:59 Intake Total 1680 Balance 1680 - Medications Medications: Current Medications Acetylcysteine (Acetylcysteine 20%) 3 ml INH BIDRESP [facility] Last Admin: 05/23/18 08:11 Dose: Not Given Albuterol/Ipratropium (Duoneb 3 Mg/0.5 Mg (3 Ml) Ud) 3 ml IH [id number] PRN PRN Reason: Shortness of Breath Last Admin: 05/21/18 06:00 Dose: 3 ml Amlodipine Besylate (Norvasc) 10 mg PO DAILY [facility] Last Admin: 05/22/18 09:16 Dose: 10 mg Arformoterol Tartrate (Brovana) 15 mcg IH [id number] [facility] Last Admin: 05/23/18 08:10 Dose: Not Given Budesonide (Pulmicort Respules) 0.5 mg IH [id number] [facility] Last Admin: 05/23/18 08:11 Dose: Not Given Enoxaparin Sodium (Lovenox) 60 mg SC 0600,1800 JACQUIE PRN Reason: Protocol Last Admin: 05/23/18 05:44 Dose: 60 mg Ergocalciferol (Drisdol 50,000 Intl Units Cap) 1 cap PO Q7D [facility] Folic Acid (Folic Acid) 1 mg PO DAILY [facility] Last Admin: 06/21/18 09:16 Dose: 1 mg Furosemide (Lasix) 20 mg PO DAILY [facility] Last Admin: 05/22/18 09:15 Dose: 20 mg Piperacillin Sod/Tazobactam Sod (Zosyn 3.375 In Ns 100ml) 100 mls @ 200 mls/hr IVPB Q6 [facility]ACQUIE PRN Reason: Protocol Stop: 05/29/18 18:36 Last Admin: 05/23/18 05:44 Dose: 200 mls/hr Levofloxacin/Dextrose (Levaquin 500mg) 500 mg in 100 mls @ 100 mls/hr IVPB DAILY [facility] PRN Reason: Protocol Stop: 05/29/18 18:40 Last Admin: 05/22/18 09:16 Dose: 100 mls/hr Vancomycin HCl (Vancomycin 1gm) 1 gm in 250 mls @ 167 mls/hr IVPB Q12 [facility]ACQUIE PRN Reason: Protocol Stop: 05/29/18 18:46 Last Admin: 05/22/18 21:37 Dose: 167 mls/hr Levetiracetam (Keppra) 500 mg PO Q12 [facility] Last Admin: 05/22/18 22:04 Dose: 500 mg Lisinopril (Zestril) 10 mg PO DAILY [facility] Last Admin: 05/22/18 09:15 Dose: 10 mg Memantine (Namenda) 10 mg PO HS [facility] Last Admin: 05/22/18 22:04 Dose: 10 mg Methylprednisolone (Solu-Medrol) 40 mg IVP Q8 [facility] Last Admin: 05/23/18 05:44 Dose: 40 mg Metoprolol Tartrate (Lopressor) 25 mg PO DAILY [facility] Last Admin: 05/22/18 09:16 Dose: 25 mg Non-Formulary Medication (Lubiprostone [Amitiza]) 24 mg PO BID [facility] Last Admin: 05/22/18 18:33 Dose: Not Given Pantoprazole Sodium (Protonix Ec Tab) 40 mg PO DAILY [facility] Last Admin: 05/22/18 09:15 Dose: 40 mg Potassium Chloride (K-Dur 20 Meq Er Tab) 20 meq PO DAILY [facility] Last Admin: 05/22/18 09:15 Dose: 20 meq - Labs Labs: 05/23/18 06:00 05/23/18 06:00 PT 12.8 SECONDS (9.4-12.5) H 05/20/18 10:45 INR 1.11 (0.93-1.08) H 05/20/18 10:45 APTT 24.7 Seconds (25.1-36.5) L 05/20/18 10:45 - Additional Findings Additional findings: - Constitutional Appears: Non-toxic, No Acute Distress - Head Exam Head Exam: ATRAUMATIC, NORMAL INSPECTION, NORMOCEPHALIC - Eye Exam Eye Exam: EOMI, Normal appearance. absent: Conjunctival injection, Scleral icterus Pupil Exam: PERRL - ENT Exam ENT Exam: Mucous Membranes Moist - Neck Exam Neck Exam: Full ROM - Respiratory Exam Respiratory Exam: Clear to Ausculation Bilateral, NORMAL BREATHING PATTERN, + expiratory wheezing b/l lung chapman absent: Accessory Muscle Use, Rales, Rhonchi Respiratory Distress - Cardiovascular Exam Cardiovascular Exam: +S1, +S2 - GI/Abdominal Exam GI & Abdominal Exam: Soft, Normal Bowel Sounds. absent: Firm, Guarding, Rigid, Tenderness - Rectal Exam Rectal Exam: Deferred - Extremities Exam Extremities Exam: Normal Inspection. absent: Pedal Edema - Neurological Exam Neurological Exam: Alert, Awake, Oriented x3 - Psychiatric Exam Psychiatric exam: Normal Affect, Normal Mood - Skin Skin Exam: Dry, Intact Assessment and Plan - Assessment and Plan (Free Text) Assessment: 63yo female PMHx metastatic NSCLC stage 4 with brain metastases s/p craniotomy with resection of the lesions admitted for shortness of breath. CTA negative for PE. CT Abd/pelvis significant for large lot in the IVC measuring 11cm extending from renal veins to the bifurcations. Venous dopplers LE negative b/ l. IR reccs apprecaited- patient wearing stockings and on therapeutic lovenox. Thrombocytopenia noted; peripheral smear: RBC are normocytic normochromi with slight anisocytosis; few ovalocytes seen. No schistocytes present. Polychromasia seen; occasional nucleated RBC identified. Platelets are adequate in number; no clumping of platelets present; no atypical cells/immature forms identified. Fibrinogen 396 and Fibrin split products >40. CXR showed nodules seen previously in the left upper lobe are no longer seen and no focal infiltrate. Abd xray negative. Patient restarted on her home medications with Duoneb q6 prn SOB. MRI brain- no mets noted. Cultures prelim negative x 2 blood and negative x 1 urine- patient to continue IV abx for 4 more days as per ID. Neuro, ID, Pulm consulted- appreciate reccs. Continue management as per primary. TCU eval f/u. Will switch to eliquis 5mg bid when patient in TCU to prepare for discharge. Recommend CT with contrast to examine IVC and iliac vein in [address] Dillon Hdez PGY2
[2018-05-23] MEDS: Potassium Chloride 20 mEq ER Tab PO SCH (09:38)
[2018-05-23] MEDS: Pantoprazole 40 mg EC Tab PO SCH (09:39)
[2018-05-23] MEDS: levoFLOXacin 500 mg in D5W 500 MG/100 ML BAG IVPB SCH (09:40)
[2018-05-23] MEDS: Vancomycin 1gm in NS 250ml 1 GM/250 ML BAG IVPB SCH ×2 (11:40→21:45)
[2018-05-23] MEDS: LUBIPROSTONE 24 MG PO SCH ×2 (11:54→17:33)
--- NOTE | 2018-05-23 16:19 | PN ---
DATE: 05/23/2018 PULMONARY PROGRESS NOTE REFERRING PHYSICIAN: Dr. Darby. SUBJECTIVE: She is sitting on side of the bed, night was unremarkable. Feels better. Decreased cough. Decreased shortness of breath. No nausea. No vomiting. No diarrhea, leg pain, leg swelling. OBJECTIVE: GENERAL: In no acute distress. VITAL SIGNS: Temperature is 98, heart rate is 87, respiratory rate is 20, blood pressure 130/70, pulse ox 97% on room air. HEENT: Moist mucous membrane. Crowded airway. NECK: Supple. No JVD. LUNGS: Have a fair airflow with rhonchi. HEART: S1 and S2. ABDOMEN: Soft, nontender. No organomegaly. EXTREMITIES: There is no edema. NEUROLOGICAL: Awake and alert. Follows simple command. LABORATORY DATA: Shows hemoglobin 10.6, hematocrit 31, WBC 4.1, platelet count is 78. Sodium 142, potassium 4.2, chloride 108, bicarbonate 26, BUN 22, creatinine 1, glucose 125, calcium 9.7, AST 45, ALT 40, alk phos is 66, albumin is 3. Microbiology: Blood culture, urine culture, there is no growth. MEDICATIONS: She is on vitamin D 50,000 units weekly, DuoNeb every 6 hours p.r.n., folic acid 1 mg daily, potassium 20 mEq daily, Keppra 500 mg twice a day, Lasix 20 mg daily, Levaquin 500 mg daily, metoprolol tartrate 25 mg daily, Lovenox 60 mg twice a day, Amitiza 24 mg twice a day, Namenda 10 mg at bedtime, Norvasc 10 mg daily, Protonix 40 mg daily, Pulmicort inhaled twice a day, Solu-Medrol 40 mg every 8 hours, vancomycin 1 g IV every 12 hours, Zestril 10 mg daily, Zosyn 3.375 g IV every 6 hours. IMPRESSION AND PLAN: Chronic obstructive lung disease, non-small cell lung cancer with metastases to bones and brain, history of craniotomy, resection of tumor, active smoker, sepsis. Pulmonary point of view, doing okay. Continue bronchodilator. Keep head at 45 degrees. Decrease Solu-Medrol to 40 every 12 hours. Gastric prophylaxis. On anticoagulation. Fall precaution. Thank you and we will follow with you. Chica Palmer MD [facility] # [id number]
--- NOTE | 2018-05-23 20:26 | CP.PCM.PN ---
Subjective - Date & Time of Evaluation Date of Evaluation: 05/23/18 Time of Evaluation: 10:15 - Subjective Subjective: Afebrile, not in distress. Objective - Vital Signs/Intake and Output Vital Signs (last 24 hours): Temp Pulse Resp BP Pulse Ox 98.5 F 89 20 102/60 97 05/23/18 18:00 05/23/18 18:00 05/23/18 18:00 05/23/18 18:00 05/23/18 18:00 - Medications Medications: Current Medications Acetylcysteine (Acetylcysteine 20%) 3 ml INH BIDRESP [facility] Last Admin: 05/23/18 08:11 Dose: Not Given Albuterol/Ipratropium (Duoneb 3 Mg/0.5 Mg (3 Ml) Ud) 3 ml IH [id number] PRN PRN Reason: Shortness of Breath Last Admin: 05/21/18 06:00 Dose: 3 ml Amlodipine Besylate (Norvasc) 10 mg PO DAILY [facility] Last Admin: 05/23/18 09:39 Dose: 10 mg Arformoterol Tartrate (Brovana) 15 mcg IH [id number] [facility] Last Admin: 05/23/18 08:10 Dose: Not Given Budesonide (Pulmicort Respules) 0.5 mg IH [id number] [facility] Last Admin: 05/23/18 08:11 Dose: Not Given Enoxaparin Sodium (Lovenox) 60 mg SC 0600,1800 JACQUIE PRN Reason: Protocol Last Admin: 05/23/18 17:41 Dose: 60 mg Ergocalciferol (Drisdol 50,000 Intl Units Cap) 1 cap PO Q7D [facility] Folic Acid (Folic Acid) 1 mg PO DAILY [facility] Last Admin: 05/23/18 09:38 Dose: 1 mg Furosemide (Lasix) 20 mg PO DAILY [facility] Last Admin: 05/23/18 09:39 Dose: 20 mg Piperacillin Sod/Tazobactam Sod (Zosyn 3.375 In Ns 100ml) 100 mls @ 200 mls/hr IVPB Q6 [facility]ACQUIE PRN Reason: Protocol Stop: 05/29/18 18:36 Last Admin: 05/23/18 17:37 Dose: 200 mls/hr Levofloxacin/Dextrose (Levaquin 500mg) 500 mg in 100 mls @ 100 mls/hr IVPB DAILY [facility]IE PRN Reason: Protocol Stop: 05/29/18 18:40 Last Admin: 05/23/18 09:40 Dose: 100 mls/hr Vancomycin HCl (Vancomycin 1gm) 1 gm in 250 mls @ 167 mls/hr IVPB Q12 [facility]ACQUIE PRN Reason: Protocol Stop: 05/29/18 18:46 Last Admin: 05/23/18 11:40 Dose: 167 mls/hr Levetiracetam (Keppra) 500 mg PO Q12 [facility] Last Admin: 05/23/18 09:40 Dose: 500 mg Lisinopril (Zestril) 10 mg PO DAILY [facility] Last Admin: 05/23/18 09:39 Dose: 10 mg Memantine (Namenda) 10 mg PO HS [facility] Last Admin: 05/22/18 22:04 Dose: 10 mg Methylprednisolone (Solu-Medrol) 40 mg IVP Q8 [facility] Last Admin: 05/23/18 13:40 Dose: 40 mg Metoprolol Tartrate (Lopressor) 25 mg PO DAILY [facility] Last Admin: 05/23/18 09:38 Dose: 25 mg Non-Formulary Medication (Lubiprostone [Amitiza]) 24 mg PO BID [facility] Last Admin: 05/23/18 17:33 Dose: Not Given Pantoprazole Sodium (Protonix Ec Tab) 40 mg PO DAILY [facility] Last Admin: 05/23/18 09:39 Dose: 40 mg Potassium Chloride (K-Dur 20 Meq Er Tab) 20 meq PO DAILY [facility] Last Admin: 05/23/18 09:38 Dose: 20 meq - Labs Labs: 05/23/18 06:00 05/23/18 06:00 PT 12.8 SECONDS (9.4-12.5) H 05/20/18 10:45 INR 1.11 (0.93-1.08) H 05/20/18 10:45 APTT 24.7 Seconds (25.1-36.5) L 05/20/18 10:45 - Constitutional Appears: Chronically Ill - Head Exam Head Exam: NORMAL INSPECTION - Neck Exam Neck Exam: absent: Meningismus - Respiratory Exam Respiratory Exam: Decreased Breath Sounds - Cardiovascular Exam Cardiovascular Exam: +S1, +S2 - GI/Abdominal Exam GI & Abdominal Exam: Soft. absent: Tenderness Assessment and Plan - Assessment and Plan (Free Text) Plan: Assessment severe sepsis due to HCAP non-small cell lung cancer stage 4 with bone metastases on chometherapy Plan Continue Vancomycin, Zosyn and Levaquin day 3 to complete 4-7 days of antibiotics urine Legionella Ag is negative, cultures have been negative will monitor clinically overall prognosis is poor discussed with Dr. Carranza
--- NOTE | 2018-05-23 21:48 | PN ---
DATE: 05/23/2018 SUBJECTIVE: Patient is a 63-year-old female. Patient was seen and examined at the bedside on 05/23/2018, looking comfortable. No nausea, vomiting, or diarrhea. No hematuria or hematochezia. No swelling of the legs. No chest pain or palpitation. No headache or dizziness. PHYSICAL EXAMINATION: VITAL SIGNS: Temperature 98, heart rate 87, respiratory rate 20, blood pressure 130/70, pulse oximetry 97% on room air. HEENT: Head: Normocephalic, atraumatic. Eyes: PERRLA. Extraocular muscles intact. Conjunctivae clear. Nose: Patent. Mucous membrane moist. NECK: Supple. No carotid bruit, JVD, or thyromegaly. CHEST: Bilaterally symmetrical. HEART: S1 and S2 positive. LUNGS: Clear to auscultation. ABDOMEN: Soft. Bowel sounds present. No organomegaly. EXTREMITIES: No edema. No cyanosis. NEUROLOGIC: Patient is awake and alert. Moving all 4 extremities. No focal deficits. MEDICATIONS: Vitamins, DuoNeb, potassium, Keppra, Lasix, Levaquin, metoprolol, Lovenox, Amitiza, Namenda, Norvasc, Protonix, Pulmicort, Solu-Medrol tapering doses, vancomycin, Zestril, Zosyn. LABORATORY DATA: Hemoglobin 10,6, hematocrit 31, white blood cells 4.1, platelets 78. Sodium 142, potassium 4.2, BUN 22, creatinine 1, AST 40, ALT 40, ASSESSMENT AND PLAN: Ms. Nicol Brannon is a 63-year-old female with chronic obstructive lung disease, non-small cell lung cancer with metastases to the bone and brain, history of craniotomy, resection of the tumor from the brain, active smoker, history of sepsis, getting tapering doses of steroids. Gastric and deep venous thrombosis prophylaxis. Director Of Sports Medicine and oncologist is on the case. Plan is to continue present treatment. Infectious Disease is on the case also. We will follow up. Yaneth Darby MD
--- NOTE | 2018-05-24 03:28 | PN ---
DATE: 05/22/2018 SUBJECTIVE: Patient is a 63-year-old female. Patient was seen and examined on the bedside on 05/22/2018, looking comfortable. No nausea, vomiting, or diarrhea. No hematuria or hematochezia. No swelling of the leg. No chest pain or palpitation. No headache or dizziness. PHYSICAL EXAMINATION: VITAL SIGNS: Temperature 98, heart rate 84, respiratory rate 20, blood pressure 112/73, pulse oximetry 93% on room air. HEENT: Head: Normocephalic, atraumatic. Eyes: PERRLA. Extraocular muscles intact. Conjunctivae clear. Nose: Patent. Mucous membrane moist. NECK: Supple. No carotid bruit, JVD, or thyromegaly. CHEST: Bilaterally symmetrical. HEART: S1 and S2 positive. LUNGS: Few scattered rhonchi, overall airflow. ABDOMEN: Soft, nontender. No organomegaly. EXTREMITIES: No edema. No cyanosis. NEUROLOGIC: Patient is awake and alert. Follows simple commands. MEDICATIONS: Mucomyst, Brovana, vitamins, DuoNeb, potassium, Keppra, Levaquin, metoprolol, Amitiza, Pulmicort, Solu-Medrol tapering doses, Zestril. LABORATORY DATA: Hemoglobin 10.8, hematocrit 31.5, white blood cells 4.7, platelets 40. Sodium 141, potassium 2.8, BUN 19, creatinine 0.9. ASSESSMENT AND PLAN: Ms. Nicol Brannon is 63 years old, my private patient, has history of chronic obstructive lung disease, non-small cell lung cancer with metastases to the bones and brain requiring craniotomy. Resection of the tumor was done. Actively smoking, sepsis, is getting treatment from Dr. Escudero, Infectious Disease. Oncologist is on the case also. According to the medical delivery technician who is covering Dr. 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 The patient is wearing stocking and on therapeutic Lovenox. Thrombocytopenia. Appreciated Yola Hdez DO, PGY-2's input. We will follow up. Yaneth Darby MD [facility] # [id number] [place]
[2018-05-24] MEDS: MethylPREDNISolone 40 mg Vial IVP SCH ×3 (05:24→21:34)
[2018-05-24] MEDS: Enoxaparin 60 mg Syringe SC SCH ×2 (05:24→17:17)
[2018-05-24] MEDS: Piperacillin/Tazobact 3.375 gm 100 ML IVPB SCH ×4 (05:24→17:17)
[2018-05-24 07:52] LABS: HEMOGLOBIN 10.6 g/dL (12.0-16.0); MEAN CELL VOLUME 100.3 fl (80.0-105.0); MEAN CORPUSCULAR HEMOGLOBIN 33.3 pg (25.0-35.0); MEAN CORPUSCULAR HGB CONC 33.2 g/dl (31.0-37.0); MEAN PLATELET VOLUME 11.4 fl (7.0-11.0); RBC 3.18 10^6/uL (3.5-6.1); RED CELL DISTRIBUTION WIDTH 14.3 % (11.5-14.5); WHITE BLOOD COUNT 4.4 10^3/ul (4.5-11.0)
[2018-05-24] MEDS: Arformoterol 15 mcg/2 ml Inh Sol IH SCH ×2 (07:59→19:16)
[2018-05-24] MEDS: Budesonide 0.5 mg/2 ml Inhal Susp UD IH SCH ×2 (07:59→19:16)
[2018-05-24] MEDS: Acetylcysteine 20% Inhal Soln (4ml) INH SCH ×2 (07:59→19:16)
[2018-05-24 08:13] LABS: ALT/SGPT 78 U/L (7-56); AST/SGOT 72 U/L (14-36); BLOOD UREA NITROGEN 24 mg/dL (7-21); CALCIUM 9.4 mg/dL (8.4-10.5); GFR AFRICAN-AMERICAN > 60; GFR NON-AFRICAN AMERICAN 56
[2018-05-24] MEDS: levoFLOXacin 500 mg in D5W 500 MG/100 ML BAG IVPB SCH (09:18)
[2018-05-24] MEDS: Vancomycin 1gm in NS 250ml 1 GM/250 ML BAG IVPB SCH (09:18)
[2018-05-24] MEDS: Potassium Chloride 20 mEq ER Tab PO SCH (09:19)
[2018-05-24] MEDS: Pantoprazole 40 mg EC Tab PO SCH (09:19)
[2018-05-24] MEDS: LUBIPROSTONE 24 MG PO SCH ×2 (10:00→17:17)
--- NOTE | 2018-05-24 11:56 | CP.PCM.PN ---
Subjective - Date & Time of Evaluation Date of Evaluation: 05/24/18 Time of Evaluation: 10:30 - Subjective Subjective: No fevers, cough is improving, as well as breathing, has a little more energy today. Objective - Vital Signs/Intake and Output Vital Signs (last 24 hours): Temp Pulse Resp BP Pulse Ox 98.0 F 87 20 106/73 99 05/24/18 06:00 05/24/18 09:20 05/24/18 06:00 05/24/18 09:20 05/24/18 06:00 Intake and Output: 05/24/18 05/24/18 06:59 18:59 Intake Total 1190 120 Output Total 400 200 Balance 790 -80 - Medications Medications: Current Medications Acetylcysteine (Acetylcysteine 20%) 3 ml INH BIDRESP [facility] Last Admin: 05/24/18 07:59 Dose: 3 ml Albuterol/Ipratropium (Duoneb 3 Mg/0.5 Mg (3 Ml) Ud) 3 ml IH [id number] PRN PRN Reason: Shortness of Breath Last Admin: 05/21/18 06:00 Dose: 3 ml Amlodipine Besylate (Norvasc) 10 mg PO DAILY [facility] Last Admin: 05/24/18 09:20 Dose: 10 mg Arformoterol Tartrate (Brovana) 15 mcg IH [id number] [facility] Last Admin: 05/24/18 07:59 Dose: 15 mcg Budesonide (Pulmicort Respules) 0.5 mg IH [id number] [facility] Last Admin: 05/24/18 07:59 Dose: 0.5 mg Enoxaparin Sodium (Lovenox) 60 mg SC 0600,1800 JACQUIE PRN Reason: Protocol Last Admin: 05/24/18 05:24 Dose: 60 mg Ergocalciferol (Drisdol 50,000 Intl Units Cap) 1 cap PO Q7D [facility] Folic Acid (Folic Acid) 1 mg PO DAILY [facility] Last Admin: 05/24/18 09:18 Dose: 1 mg Furosemide (Lasix) 20 mg PO DAILY [facility] Last Admin: 05/24/18 09:19 Dose: 20 mg Piperacillin Sod/Tazobactam Sod (Zosyn 3.375 In Ns 100ml) 100 mls @ 200 mls/hr IVPB Q6 JACQUIE PRN Reason: Protocol Stop: 05/29/18 18:36 Last Admin: 05/24/18 05:24 Dose: 200 mls/hr Levofloxacin/Dextrose (Levaquin 500mg) 500 mg in 100 mls @ 100 mls/hr IVPB DAILY [facility] PRN Reason: Protocol Stop: 05/29/18 18:40 Last Admin: 05/24/18 09:18 Dose: 100 mls/hr Vancomycin HCl (Vancomycin 1gm) 1 gm in 250 mls @ 167 mls/hr IVPB Q12 [facility] PRN Reason: Protocol Stop: 05/29/18 18:46 Last Admin: 05/24/18 09:18 Dose: 167 mls/hr Levetiracetam (Keppra) 500 mg PO Q12 [facility] Last Admin: 05/24/18 09:19 Dose: 500 mg Lisinopril (Zestril) 10 mg PO DAILY [facility] Last Admin: 05/24/18 09:20 Dose: 10 mg Memantine (Namenda) 10 mg PO HS [facility] Last Admin: 05/23/18 21:44 Dose: 10 mg Methylprednisolone (Solu-Medrol) 40 mg IVP Q8 [facility] Last Admin: 05/24/18 05:24 Dose: 40 mg Metoprolol Tartrate (Lopressor) 25 mg PO DAILY [facility] Last Admin: 05/24/18 09:20 Dose: 25 mg Non-Formulary Medication (Lubiprostone [Amitiza]) 24 mg PO BID [facility] Last Admin: 05/23/18 17:33 Dose: Not Given Pantoprazole Sodium (Protonix Ec Tab) 40 mg PO DAILY [facility] Last Admin: 05/24/18 09:19 Dose: 40 mg Potassium Chloride (K-Dur 20 Meq Er Tab) 20 meq PO DAILY [facility] Last Admin: 05/24/18 09:19 Dose: 20 meq - Labs Labs: 05/24/18 07:30 05/24/18 07:30 PT 12.8 SECONDS (9.4-12.5) H 05/20/18 10:45 INR 1.11 (0.93-1.08) H 05/20/18 10:45 APTT 24.7 Seconds (25.1-36.5) L 05/20/18 10:45 - Constitutional Appears: Chronically Ill - Head Exam Head Exam: NORMAL INSPECTION - Neck Exam Neck Exam: absent: Meningismus - Respiratory Exam Respiratory Exam: Decreased Breath Sounds - Cardiovascular Exam Cardiovascular Exam: +S1, +S2 - GI/Abdominal Exam GI & Abdominal Exam: Soft. absent: Tenderness Assessment and Plan - Assessment and Plan (Free Text) Plan: Assessment severe sepsis due to HCAP non-small cell lung cancer stage 4 with bone metastases on chemotherapy Plan Continue Vancomycin, Zosyn and Levaquin day 4 to complete 4-7 days of antibiotics urine Legionella Ag is negative, cultures have been negative will continue to monitor clinically overall prognosis is poor discussed with Dr. Carranza previously
--- NOTE | 2018-05-24 20:31 | PN ---
DATE: 05/24/2018 PULMONARY PROGRESS NOTE REFERRING PHYSICIAN: Yaneth Darby MD. SUBJECTIVE: Patient is lying in the bed, head at 45 degrees. Night was unremarkable. Feels okay. Decreased cough and shortness of breath. No nausea, no vomiting, no diarrhea. No leg pain or leg swelling. OBJECTIVE: GENERAL: In no acute distress. VITAL SIGNS: Temperature is 98, heart rate is 99, respiratory rate is 18, blood pressure 101/66, pulse ox 97% on 2 liters nasal cannula. HEENT: Moist mucous membrane. Crowded airway. NECK: Supple. No JVD. LUNGS: Have a fair airflow with rhonchi. HEART: S1, S2. ABDOMEN: Soft, nontender, no organomegaly. EXTREMITIES: No edema. NEUROLOGIC: Awake, alert, and follows simple commands. MEDICATIONS: She is on Mucomyst inhaled twice a day, Brovana inhaled twice a day, vitamin D 50,000 units weekly, DuoNeb every 6 hours p.r.n., folic acid 1 mg daily, potassium 20 mEq daily, Keppra 500 mg twice a day, Lasix 20 mg daily, Levaquin 500 mg IV daily, metoprolol tartrate 25 mg daily, Lovenox 60 mg subcu twice a day, Amitiza 24 mcg twice a day, Namenda 10 mg at bedtime, Norvasc 10 mg daily, Protonix 40 mg daily, Pulmicort inhaled twice a day, Solu-Medrol 40 mg every 8 hour, vancomycin 1 g IV daily, Zestril 10 mg daily, Zosyn 3.375 g IV every 6 hour. LABORATORY DATA: Shows hemoglobin 10.6, hematocrit 31.9, WBC 4.4, platelet is 71. Sodium 143, potassium 3.9, chloride 108, bicarbonate 23, BUN 24, creatinine 1, glucose 101, calcium is 9.4. AST 72, ALT 78, alk phos is 68. Albumin is 3. Microbiology: Blood culture has been negative. Urine culture is no growth. IMPRESSION AND PLAN: Chronic obstructive lung disease, non-small cell lung cancer with metastatic disease to bone and brain, history of craniotomy and resection of tumor, active smoker, sepsis. Pulmonary point of view, doing okay. Continue bronchodilator, keep head at 45 degrees. Decrease Solu-Medrol to 40 every 12 hour. Gastric prophylaxis. On anticoagulation. Thank you and we will follow with you. Chica Palmer MD
[2018-05-24] MEDS ORDERED: MethylPREDNISolone 40 mg Vial IVP SCH (22:00)
--- NOTE | 2018-05-24 22:55 | PN ---
DATE: 05/24/2018 SUBJECTIVE: Patient was seen and examined at the bedside, looking comfortable. No nausea, vomiting or diarrhea. No hematuria, no hematochezia. No swelling of the legs. No chest pain, no palpitation. Cough is better. Shortness of breath is better. Feeling a little bit more energetic. PHYSICAL EXAMINATION: VITAL SIGNS: Temperature 98, pulse 87, respiratory rate 20, blood pressure 106/73, pulse oximetry 99. HEENT: Head normocephalic, atraumatic. Eyes PERRLA. Extraocular muscles intact. Conjunctivae clear. Nose patent. Mucous membrane moist. NECK: Supple. No carotid bruit. No JVD or thyromegaly. CHEST: Bilaterally symmetrical. HEART: S1 and S2 positive. LUNGS: Clear to auscultation. ABDOMEN: Soft. Bowel sounds present. No organomegaly. EXTREMITIES: No edema. No cyanosis. NEUROLOGICAL: The patient is awake and alert. Moving all four extremities. No focal deficits. MEDICATIONS: DuoNeb, Norvasc, Brovana, Pulmicort, Lovenox, vitamin D, Lasix, Zosyn, levofloxacin, vancomycin, Namenda, Solu-Medrol, Protonix, potassium. LABORATORY DATA: White blood cells 4.4, hemoglobin 10.6, hematocrit 31.9, platelet 71. Sodium 143, potassium 3.9, BUN 24, creatinine 1, glucose 101. ASSESSMENT AND PLAN: Ms. Nicol Brannon is a 63-year-old female with leukopenia, anemia, thrombocytopenia, pancytopenia, has severe sepsis due to healthcare-associated pneumonia, non-small cell lung cancer stage IV, metastasis to the brain, and had status post chemotherapy. Continue vancomycin, Zosyn, and Levaquin, day 4, to be completed 4 to 7 days of antibiotics. Urine Legionella antigen is negative. Cultures have been negative. Continue present treatment. Overall prognosis is poor. Reviewed Dr. Escudero's notes. He had discussion done with Dr. Carranza. Out of bed, physical therapy. We will follow up. Yaneth Darby MD
[2018-05-25] MEDS: Enoxaparin 60 mg Syringe SC SCH ×2 (05:51→17:30)
[2018-05-25] MEDS: Piperacillin/Tazobact 3.375 gm 100 ML IVPB SCH ×3 (05:52→17:30)
[2018-05-25 06:33] LABS: ALBUMIN 2.9 g/dL (3.0-4.8); ALT/SGPT 88 U/L (7-56); AST/SGOT 63 U/L (14-36); BLOOD UREA NITROGEN 26 mg/dL (7-21); CALCIUM 9.4 mg/dL (8.4-10.5); GFR AFRICAN-AMERICAN > 60; GFR NON-AFRICAN AMERICAN 56
[2018-05-25] MEDS: Arformoterol 15 mcg/2 ml Inh Sol IH SCH ×2 (07:43→20:31)
[2018-05-25] MEDS: Budesonide 0.5 mg/2 ml Inhal Susp UD IH SCH ×2 (07:43→20:31)
[2018-05-25] MEDS: Vancomycin 1gm in NS 250ml 1 GM/250 ML BAG IVPB SCH (09:13)
[2018-05-25] MEDS: levoFLOXacin 500 mg in D5W 500 MG/100 ML BAG IVPB SCH (09:14)
[2018-05-25] MEDS: Potassium Chloride 20 mEq ER Tab PO SCH (09:15)
[2018-05-25] MEDS: MethylPREDNISolone 40 mg Vial IVP SCH ×2 (09:15→22:54)
[2018-05-25] MEDS: Pantoprazole 40 mg EC Tab PO SCH (09:15)
[2018-05-25] MEDS: LUBIPROSTONE 24 MG PO SCH ×2 (10:31→17:30)
--- NOTE | 2018-05-25 16:25 | CP.PCM.PN ---
Subjective - Date & Time of Evaluation Date of Evaluation: 05/25/18 Time of Evaluation: 10:45 - Subjective Subjective: Resting in bed, feeling a little better, less shortness of breath and cough, no fevers. Objective - Vital Signs/Intake and Output Vital Signs (last 24 hours): Temp Pulse Resp BP Pulse Ox 97.0 F L 96 H 20 104/70 94 L 05/25/18 06:00 05/25/18 06:00 05/25/18 06:00 05/25/18 09:19 05/25/18 06:00 Intake and Output: 05/25/18 05/25/18 06:59 18:59 Intake Total 360 Output Total 500 Balance -140 - Medications Medications: Current Medications Acetylcysteine (Acetylcysteine 20%) 3 ml [facility]P [facility] Last Admin: 05/24/18 19:16 Dose: 3 ml Albuterol/Ipratropium (Duoneb 3 Mg/0.5 Mg (3 Ml) Ud) 3 ml IH [id number] PRN PRN Reason: Shortness of Breath Last Admin: 05/21/18 06:00 Dose: 3 ml Amlodipine Besylate (Norvasc) 10 mg PO DAILY [facility] Last Admin: 05/24/18 09:20 Dose: 10 mg Arformoterol Tartrate (Brovana) 15 mcg IH [id number] [facility] Last Admin: 05/25/18 07:43 Dose: Not Given Budesonide (Pulmicort Respules) 0.5 mg IH [id number] [facility] Last Admin: 05/25/18 07:43 Dose: Not Given Enoxaparin Sodium (Lovenox) 60 mg SC 0600,1800 JACQUIE PRN Reason: Protocol Last Admin: 05/25/18 05:51 Dose: 60 mg Ergocalciferol (Drisdol 50,000 Intl Units Cap) 1 cap PO Q7D [facility] Folic Acid (Folic Acid) 1 mg PO DAILY [facility] Last Admin: 05/25/18 09:15 Dose: 1 mg Furosemide (Lasix) 20 mg PO DAILY [facility] Last Admin: 05/25/18 09:19 Dose: 20 mg Piperacillin Sod/Tazobactam Sod (Zosyn 3.375 In Ns 100ml) 100 mls @ 200 mls/hr IVPB Q6 JACQUIE PRN Reason: Protocol Stop: 05/29/18 18:36 Last Admin: 05/25/18 05:52 Dose: 200 mls/hr Levofloxacin/Dextrose (Levaquin 500mg) 500 mg in 100 mls @ 100 mls/hr IVPB DAILY [facility] PRN Reason: Protocol Stop: 05/29/18 18:40 Last Admin: 05/25/18 09:14 Dose: 100 mls/hr Vancomycin HCl (Vancomycin 1gm) 1 gm in 250 mls @ 167 mls/hr IVPB DAILY [facility] PRN Reason: Protocol Stop: 05/29/18 18:46 Last Admin: 05/25/18 09:13 Dose: 167 mls/hr Levetiracetam (Keppra) 500 mg PO Q12 [facility] Last Admin: 05/25/18 09:15 Dose: 500 mg Lisinopril (Zestril) 10 mg PO DAILY [facility] Last Admin: 05/24/18 09:20 Dose: 10 mg Memantine (Namenda) 10 mg PO HS [facility] Last Admin: 05/24/18 21:34 Dose: 10 mg Methylprednisolone (Solu-Medrol) 30 mg IVP Q12 [facility] Last Admin: 05/25/18 09:15 Dose: 30 mg Metoprolol Tartrate (Lopressor) 25 mg PO DAILY [facility] Last Admin: 05/24/18 09:20 Dose: 25 mg Non-Formulary Medication (Lubiprostone [Amitiza]) 24 mg PO BID [facility] Last Admin: 05/24/18 17:17 Dose: Not Given Pantoprazole Sodium (Protonix Ec Tab) 40 mg PO DAILY [facility] Last Admin: 05/25/18 09:15 Dose: 40 mg Potassium Chloride (K-Dur 20 Meq Er Tab) 20 meq PO DAILY [facility] Last Admin: 05/25/18 09:15 Dose: 20 meq - Labs Labs: 05/24/18 07:30 05/25/18 06:00 PT 12.8 SECONDS (9.4-12.5) H 05/20/18 10:45 INR 1.11 (0.93-1.08) H 05/20/18 10:45 APTT 24.7 Seconds (25.1-36.5) L 05/20/18 10:45 - Constitutional Appears: Chronically Ill - Head Exam Head Exam: NORMAL INSPECTION - Neck Exam Neck Exam: absent: Meningismus - Respiratory Exam Respiratory Exam: Decreased Breath Sounds - Cardiovascular Exam Cardiovascular Exam: +S1, +S2 - GI/Abdominal Exam GI & Abdominal Exam: Soft. absent: Tenderness Assessment and Plan - Assessment and Plan (Free Text) Plan: Assessment severe sepsis due to HCAP non-small cell lung cancer stage 4 with bone metastases on chemotherapy Plan Continue Vancomycin, Zosyn and Levaquin day 5 to complete 4-7 days of antibiotics urine Legionella Ag is negative, cultures have been negative will continue to follow clinically overall prognosis is poor discussed with Dr. Carranza previously
[2018-05-25] MEDS: Acetylcysteine 20% Inhal Soln (4ml) INH SCH (20:31)
--- NOTE | 2018-05-25 23:03 | PN ---
DATE: 05/25/2018 PULMONARY PROGRESS NOTE REFERRING PHYSICIAN: Yaneth Darby MD. SUBJECTIVE: Patient is lying in the bed, head at 45 degrees. Night was unremarkable. No headache, no rhinitis. Cough is better. No nausea, no vomiting, no diarrhea. No leg pain or leg swelling. OBJECTIVE: GENERAL: In no acute distress. VITAL SIGNS: Temperature is 98, heart rate is 108, respiratory rate is 20, blood pressure is 94/68, pulse ox 94% on 2 liters nasal cannula. HEENT: Moist mucous membrane. Crowded airway. NECK: Supple. No JVD. LUNGS: Have a few rhonchi at both lung chapman. Overall fair airflow. HEART: S1 and S2. ABDOMEN: Soft, nontender. No organomegaly. EXTREMITIES: No edema. NEUROLOGIC: Awake, alert, and follows simple command. MEDICATIONS: She is on Mucomyst 20% inhaled twice a day, Brovana inhaled twice a day, vitamin D 50,000 units every 7 days, DuoNeb every 6 hour p.r.n., folic acid 1 mg daily, potassium 20 mEq daily, Keppra 500 mg twice a day, Lasix 20 mg daily, Levaquin 500 mg daily, metoprolol tartrate 25 mg daily, Lovenox 60 mg subcu twice a day, Amitiza 24 mcg twice a day, Namenda 10 mg at bedtime, Norvasc 10 mg daily, Protonix 40 mg daily, Pulmicort inhaled twice a day, Solu-Medrol 30 mg every 12 hour, vancomycin 1 g IV daily, Zestril 10 mg daily, Zosyn 3.375 g every 6 hour. LABORATORY DATA: Reviewed and noted. Sodium 141, potassium 4.2, chloride 107, bicarbonate 26, BUN 26, creatinine 1, glucose 110, calcium is 9.4. AST 63, ALT 88, alk phos is 65. Albumin is 2.9. Microbiology: Blood culture, urine culture, there is no growth. IMPRESSION AND PLAN: Chronic obstructive lung disease, non-small cell lung cancer with metastatic disease to the bone and brain, history of craniotomy and resection of tumor, active smoker, sepsis. Pulmonary point of view, doing okay. Continue IV and inhaled bronchodilator. Keep head at 45 degrees. Gastric prophylaxis, anticoagulation, fall precaution. Thank you and we will follow with you. Chica Palmer MD [facility] # [id number]
--- NOTE | 2018-05-26 00:16 | PN ---
DATE: 05/25/2018 SUBJECTIVE: The patient is 63 years old female. The patient seen and examined at the bedside, looking comfortable. No nausea, vomiting or diarrhea. No hematuria or hematochezia. No headache. No dizziness. No chest pain. No palpitation. PHYSICAL EXAMINATION: GENERAL: Temperature 97, pulse 80 , respiratory rate 20, blood pressure 104/70, pulse oximetry of 94. HEENT: Head normocephalic, atraumatic. Eyes PERRLA. Extraocular muscles intact. Conjunctivae clear. Nose patent. Mucous membrane moist. NECK: Supple. No carotid bruit. No JVD or thyromegaly. CHEST: Bilaterally symmetrical. HEART: S1 and S2 positive. LUNGS: Clear to auscultation. ABDOMEN: Soft. Bowel sounds present. No organomegaly. EXTREMITIES: No edema. No cyanosis. NEUROLOGICAL: The patient is awake and alert. Moving all four extremities. No focal deficits. MEDICATIONS: Acetylcysteine, DuoNeb, Norvasc, Brovana, Lovenox, vitamin D, folic acid, Lasix, levofloxacin, vancomycin, Solu-Medrol, Lopressor, Protonix. LABORATORY DATA: White blood cells 4.4, hemoglobin 10.6, hematocrit 31.9, platelets 71. Sodium 141, potassium 4.2, BUN 20, creatinine 1, glucose 110. ASSESSMENT AND PLAN: Ms. Nicol Brannon is a 63 years old lady with leukopenia, anemia, thrombocytopenia, has severe sepsis due to healthcare-associated pneumonia non-small cell lung cancer stage 4 with bone metastasis on chemotherapy. Continue vancomycin, Zosyn and Levaquin day 5 to complete the 4 to 7 days of antibiotics. Urine Legionella antigen is negative. Cultures have been negative. We will continue present treatment. Overall prognosis is poor. Need physical therapy. Appreciated Dr. Kruse and Dr. Palmer's input. We will follow up. Yaneth Darby MD MTDD
[2018-05-26] MEDS: Piperacillin/Tazobact 3.375 gm 100 ML IVPB SCH ×4 (00:25→17:17)
[2018-05-26] MEDS: Enoxaparin 60 mg Syringe SC SCH ×2 (06:27→17:17)
[2018-05-26] MEDS: Acetylcysteine 20% Inhal Soln (4ml) INH SCH ×2 (07:17→20:40)
[2018-05-26] MEDS: Budesonide 0.5 mg/2 ml Inhal Susp UD IH SCH ×2 (07:18→20:40)
[2018-05-26] MEDS: Arformoterol 15 mcg/2 ml Inh Sol IH SCH ×2 (07:18→20:40)
--- NOTE | 2018-05-26 09:23 | PN ---
DATE: 05/25/2018 ONCOLOGY PROGRESS NOTE LOCATION: The patient is in room 377, bed 1. SUBJECTIVE: This is a 63-year-old female with documented metastatic stage IV non small cell carcinoma of the lung (adenocarcinoma of the lung), status post resection, status post systemic chemotherapy with carboplatin, trimetrexate, Keytruda, currently maintained on Keytruda, was admitted to the hospital with failure to thrive, incontinence and what appeared to be developing infection for which she was treated with IV antibiotics and patient has dramatically improved. Subjectively, patient is lying in bed with head at 45 degrees. Night was unremarkable. Patient tells me her appetite has improved. She has been walking without assistance. Patient has decreased cough and shortness of breath. No nausea. No vomiting. No diarrhea. No leg pain. HOSPITAL COURSE: Patient in the hospital had CAT scan of the abdomen and pelvis with oral and IV contrast along with this patient had venous Doppler of the lower extremities. Patient had a demonstrated in the infrarenal portion of the IVC extending into the iliac vein for which she has been started on anticoagulants. She is on Lovenox currently. PHYSICAL EXAMINATION: GENERAL: The patient is in no acute distress. VITAL SIGNS: Stable as stated in the chart. T-max is 98.4, heart rate is 99, respirations 18 per minute, blood pressure is 110/66, pulse oximetry is 97% on 2 liters of oxygen. HEENT: Head is normocephalic and atraumatic. Conjunctivae clear. Sclerae is anicteric. Pupils are equally reactive to light and accommodation. Examination of the oropharynx reveals tongue to be moist. No ulcerations are noted. Patient has poor dentition. NECK: Supple. There is no adenopathy. No jugular venous distension noted. LUNGS: Clear but scattered rhonchi posteriorly. HEART: Reveals PMI within the fifth intercostal space inside the midclavicular line. S1 and S2 are normal. No gallop or murmur is heard. ABDOMEN: Soft, nontender. Liver and spleen are not palpable. No rebound, rigidity or guarding is noted. EXTREMITIES: Reveals no cyanosis, clubbing or edema. NEUROLOGIC: Reveals higher functions to be normal. No focal deficits are noted. Patient is awake, alert and oriented. Mentation is significantly improved since admission. MEDICATIONS: Currently on the current medications. Patient medications were reviewed. She is on Mucomyst inhaled twice a day, Brovana inhaled twice a day, vitamin D 50,000 units once a day, DuoNeb every 6 hours, folic acid 1 mg daily, potassium chloride 20 mEq once daily, she is on Keppra 500 b.i.d., Lasix 20 mg daily, Levaquin 500 mg IV daily, metoprolol tartrate 25 mg daily, Lovenox 60 mg subcu twice a day, Amitiza 24 mcg p.o. twice a day, Namenda 10 mg p.o. at bedtime, Norvasc 10 mg daily, Protonix 40 mg daily, inhaled twice a day, Solu-Medrol 40 mg IV every 8 hours, vancomycin IV 1 g daily, Zestril 10 mg daily, Zosyn 3.375 g every 6 hours. LABORATORY DATA: Reveals hemoglobin of 10.6, hematocrit 31.9, white count is 4.4 with the platelet count of 71,000 . Sodium is 143, K is 3.9, chloride is 102, bicarbonate 23, BUN is 24, creatinine 1, glucose 101, calcium is 9.4. AST 72, ALT 78, alkaline phosphatase is 68. Albumin is 3.3. Microbiology: Blood culture has been negative so far with negative cultures. ASSESSMENT, NOTES AND PLAN: Patient has progressive stage IV metastatic non-small cell lung carcinoma with systemic inflammatory response syndrome, currently on antibiotics. Spoke to Infectious Disease, would like to continue antibiotics for at least 3 more days. Patient is on Lovenox for her findings and deep venous thrombosis. Spoke to Interventional Radiology, Dr. Dc Abdalla who recommended a followup CT in about 3 weeks and to continue Lovenox but switch over to pill of Eliquis once the patient is ready to be discharged. Patient is going to be assessed for either transitional care unit or subacute rehab. She is currently stable as far as able to ambulate and take care of the activities of daily living. We will discuss with primary doctor, Dr. Darby and Dr. Palmer, the derrick boat runner as well. Time spent with the patient is greater than 80 minutes. Spoke to the patient's daughter and son-in-law who is here visiting the patient. Time spent with the patient as I mentioned is greater than 80 minutes. Please make a note that this is a complex patient with multiple comorbid medical issues. Lamberto Carranza MD
[2018-05-26] MEDS: Potassium Chloride 20 mEq ER Tab PO SCH (09:58)
[2018-05-26] MEDS: levoFLOXacin 500 mg in D5W 500 MG/100 ML BAG IVPB SCH (10:00)
[2018-05-26] MEDS: LUBIPROSTONE 24 MG PO SCH ×2 (10:01→17:18)
[2018-05-26] MEDS: Pantoprazole 40 mg EC Tab PO SCH (10:02)
[2018-05-26] MEDS: MethylPREDNISolone 40 mg Vial IVP SCH ×2 (10:02→22:01)
[2018-05-26] MEDS: Vancomycin 1gm in NS 250ml 1 GM/250 ML BAG IVPB SCH (10:03)
--- NOTE | 2018-05-26 17:26 | CP.PCM.PN ---
Subjective - Date & Time of Evaluation Date of Evaluation: 05/26/18 Time of Evaluation: 10:25 - Subjective Subjective: Resting comfortably in bed, no fevers. Objective - Vital Signs/Intake and Output Vital Signs (last 24 hours): Temp Pulse Resp BP Pulse Ox 98.8 F 108 H 19 94/68 L 94 L 05/25/18 16:30 05/25/18 16:30 05/25/18 16:30 05/25/18 16:30 05/25/18 16:30 Intake and Output: 05/26/18 05/26/18 06:59 18:59 Intake Total 120 Output Total 200 Balance -80 - Medications Medications: Current Medications Acetylcysteine (Acetylcysteine 20%) 3 ml INH BIDRESP COUNTS INCLUDE 234 BEDS AT [facility] Last Admin: 05/26/18 07:17 Dose: 3 ml Albuterol/Ipratropium (Duoneb 3 Mg/0.5 Mg (3 Ml) Ud) 3 ml IH [id number] PRN PRN Reason: Shortness of Breath Last Admin: 05/21/18 06:00 Dose: 3 ml Amlodipine Besylate (Norvasc) 10 mg PO DAILY COUNTS INCLUDE 234 BEDS AT [facility] Last Admin: 05/25/18 10:31 Dose: Not Given Arformoterol Tartrate (Brovana) 15 mcg IH [id number] COUNTS INCLUDE 234 BEDS AT THE [facility] Last Admin: 05/26/18 07:18 Dose: 15 mcg Budesonide (Pulmicort Respules) 0.5 mg IH [id number] COUNTS INCLUDE 234 BEDS AT THE [facility] Last Admin: 05/26/18 07:18 Dose: 0.5 mg Enoxaparin Sodium (Lovenox) 60 mg SC 0600,1800 JACQUIE PRN Reason: Protocol Last Admin: 05/26/18 06:27 Dose: 60 mg Ergocalciferol (Drisdol 50,000 Intl Units Cap) 1 cap PO Q7D COUNTS INCLUDE 234 BEDS AT [facility] Folic Acid (Folic Acid) 1 mg PO DAILY COUNTS INCLUDE 234 BEDS AT THE [facility] Last Admin: 05/25/18 09:15 Dose: 1 mg Furosemide (Lasix) 20 mg PO DAILY [facility]CLUDE 234 BEDS AT [facility] Last Admin: 05/25/18 09:19 Dose: 20 mg Piperacillin Sod/Tazobactam Sod (Zosyn 3.375 In Ns 100ml) 100 mls @ 200 mls/hr IVPB Q6 JACQUIE PRN Reason: Protocol Stop: 05/29/18 18:36 Last Admin: 05/26/18 06:27 Dose: 200 mls/hr Levofloxacin/Dextrose (Levaquin 500mg) 500 mg in 100 mls @ 100 mls/hr IVPB DAILY [facility]CLUDE 234 BEDS AT [facility] PRN Reason: Protocol Stop: 05/29/18 18:40 Last Admin: 05/25/18 09:14 Dose: 100 mls/hr Vancomycin HCl (Vancomycin 1gm) 1 gm in 250 mls @ 167 mls/hr IVPB DAILY [facility] 234 BEDS AT [facility] PRN Reason: Protocol Stop: 05/29/18 18:46 Last Admin: 05/25/18 09:13 Dose: 167 mls/hr Levetiracetam (Keppra) 500 mg PO Q12 [facility]S [facility]CLUDE 234 BEDS AT [facility] Last Admin: 05/25/18 22:53 Dose: 500 mg Lisinopril (Zestril) 10 mg PO DAILY [facility]S [facility]CLUDE 234 BEDS AT [facility] Last Admin: 05/25/18 10:31 Dose: Not Given Memantine (Namenda) 10 mg PO HS COUNTS INCLUDE 234 BEDS AT [facility] Last Admin: 05/25/18 22:54 Dose: 10 mg Methylprednisolone (Solu-Medrol) 30 mg IVP Q12 COUNTS [facility]CLUDE 234 BEDS AT [facility] Last Admin: 05/25/18 22:54 Dose: 30 mg Metoprolol Tartrate (Lopressor) 25 mg PO DAILY [facility]CLUDE 234 BEDS AT [facility] Last Admin: 05/25/18 10:30 Dose: Not Given Non-Formulary Medication (Lubiprostone [Amitiza]) 24 mg PO BID COUNTS INCLUDE 234 BEDS AT [facility] Last Admin: 05/25/18 17:30 Dose: Not Given Pantoprazole Sodium (Protonix Ec Tab) 40 mg PO DAILY COUNTS [facility]CLUDE 234 BEDS AT [facility] Last Admin: 05/25/18 09:15 Dose: 40 mg Potassium Chloride (K-Dur 20 Meq Er Tab) 20 meq PO DAILY COUNTS INCLUDE 234 BEDS AT [facility] Last Admin: 05/25/18 09:15 Dose: 20 meq - Labs Labs: 05/24/18 07:30 05/25/18 06:00 PT 12.8 SECONDS (9.4-12.5) H 05/20/18 10:45 INR 1.11 (0.93-1.08) H 05/20/18 10:45 APTT 24.7 Seconds (25.1-36.5) L 05/20/18 10:45 - Constitutional Appears: Chronically Ill - Head Exam Head Exam: NORMAL INSPECTION - Respiratory Exam Respiratory Exam: Decreased Breath Sounds - Cardiovascular Exam Cardiovascular Exam: +S1, +S2 - GI/Abdominal Exam GI & Abdominal Exam: Soft. absent: Tenderness Assessment and Plan - Assessment and Plan (Free Text) Plan: Assessment severe sepsis due to HCAP non-small cell lung cancer stage 4 with bone metastases on chemotherapy Plan on Vancomycin, Zosyn and Levaquin day 6 to complete 4-7 days of antibiotics - will d/c Vancomycin and Zosyn urine Legionella Ag is negative, cultures have been negative will continue to follow clinically overall prognosis is poor discussed with Dr. Carranza previously
--- NOTE | 2018-05-26 18:44 | CP.PCM.PN ---
Subjective - Date & Time of Evaluation Date of Evaluation: 05/26/18 Time of Evaluation: 11:00 - Subjective Subjective: Resting comfortably in bed, no feversno ches pain , no le[place] . no sob . no coughing , sleepy abusable Objective - Vital Signs/Intake and Output Vital Signs (last 24 hours): Temp Pulse Resp BP Pulse Ox 98.5 F 111 H 20 98/72 L 96 05/26/18 08:43 05/26/18 08:43 05/26/18 08:43 05/26/18 10:03 05/26/18 08:43 Intake and Output: 05/26/18 05/26/18 06:59 18:59 Intake Total 120 420 Output Total 200 300 Balance -80 120 - Medications Medications: Current Medications Acetylcysteine (Acetylcysteine 20%) 3 ml [facility]H BIDRESP [facility] Last Admin: 05/26/18 07:17 Dose: 3 ml Albuterol/Ipratropium (Duoneb 3 Mg/0.5 Mg (3 Ml) Ud) 3 ml IH [id number] PRN PRN Reason: Shortness of Breath Last Admin: 05/21/18 06:00 Dose: 3 ml Amlodipine Besylate (Norvasc) 10 mg PO DAILY [facility] Last Admin: 05/26/18 10:02 Dose: Not Given Arformoterol Tartrate (Brovana) 15 mcg [facility] [id number] [facility] Last Admin: 05/26/18 07:18 Dose: 15 mcg Budesonide (Pulmicort Respules) 0.5 mg IH [id number] [facility] Last Admin: 05/26/18 07:18 Dose: 0.5 mg Enoxaparin Sodium (Lovenox) 60 mg SC 0600,1800 [facility] PRN Reason: Protocol Last Admin: 05/26/18 17:17 Dose: 60 mg Ergocalciferol (Drisdol 50,000 Intl Units Cap) 1 cap PO Q7D [facility] Folic Acid (Folic Acid) 1 mg PO DAILY [facility] Last Admin: 05/26/18 09:58 Dose: 1 mg Furosemide (Lasix) 20 mg PO DAILY [facility] Last Admin: 05/26/18 09:59 Dose: Not Given Levofloxacin/Dextrose (Levaquin 500mg) 500 mg in 100 mls @ 100 mls/hr IVPB DAILY [facility] PRN Reason: Protocol Stop: 05/29/18 18:40 Last Admin: 05/26/18 10:00 Dose: 100 mls/hr Levetiracetam (Keppra) 500 mg PO Q12 [facility] Last Admin: 05/26/18 09:59 Dose: 500 mg Lisinopril (Zestril) 10 mg PO DAILY [facility] Last Admin: 05/26/18 10:03 Dose: Not Given Memantine (Namenda) 10 mg PO HS [facility] Last Admin: 05/25/18 22:54 Dose: 10 mg Methylprednisolone (Solu-Medrol) 30 mg IVP Q12 [facility] Last Admin: 05/26/18 10:02 Dose: 30 mg Metoprolol Tartrate (Lopressor) 25 mg PO DAILY [facility] Last Admin: 05/26/18 10:01 Dose: Not Given Non-Formulary Medication (Lubiprostone [Amitiza]) 24 mg PO BID [facility] Last Admin: 05/26/18 17:18 Dose: Not Given Pantoprazole Sodium (Protonix Ec Tab) 40 mg PO DAILY [facility] Last Admin: 05/26/18 10:02 Dose: 40 mg Potassium Chloride (K-Dur 20 Meq Er Tab) 20 meq PO DAILY [facility] Last Admin: 05/26/18 09:58 Dose: 20 meq - Labs Labs: 05/24/18 07:30 05/25/18 06:00 PT 12.8 SECONDS (9.4-12.5) H 05/20/18 10:45 INR 1.11 (0.93-1.08) H 05/20/18 10:45 APTT 24.7 Seconds (25.1-36.5) L 05/20/18 10:45 Assessment and Plan (1) Brain mass Status: Acute (2) Knee pain Status: Acute - Assessment and Plan (Free Text) Assessment: severe sepsis due to HCAP non-small cell lung cancer stage 4 with bone metastases on chemotherapy h/o head surgery m htn , anema ataxia Plan on Vancomycin, Zosyn and Levaquin day 6 to complete 4-7 days of antibiotics - will d/c Vancomycin and Zosyn urine Legionella Ag is negative, cultures have been negative will continue to follow clinically overall prognosis is poor, noted dr gilda , pul . and oncology notes , oob pt ,ot
--- NOTE | 2018-05-26 22:30 | CARD ---
APPROVED REPORT EKG Measurement Heart [id number] <Conclusion> Sinus tachycardia Otherwise normal ECG
--- NOTE | 2018-05-27 00:05 | PN ---
DATE: 05/26/2018 LOCATION: The patient is in room 377, bed 1. SUBJECTIVE: The patient is resting in bed without any fevers, chills, nausea or vomiting. The patient is currently doing better. She is ambulating with help with minimal account assistant. OBJECTIVE: VITAL SIGNS: Stable. T-max is 98.4, pulse is 108, respirations 19, blood pressure is 94/68, pulse ox is 94% on 2 L of nasal oxygen. GENERAL: The patient is examined in bed, appears to be chronically ill looking, in no acute distress. The patient is comfortably lying in bed. Tells me that she was up and around earlier this morning. HEENT: Head is normocephalic, atraumatic. Conjunctivae pale. Sclerae are anicteric. Pupils are equally reactive to light and accommodation. Examination of the oropharynx reveals tongue to be moist. No ulcerations are noted. No evidence of any infection or thrush noted on the tongue. NECK: Supple. There is no adenopathy. No jugular venous distention noted. LUNGS: Examination of the lungs reveal clear to percussion and auscultation. ABDOMEN: Soft, nontender, protuberant. Liver and spleen not palpable. No rebound, rigidity or guarding is noted. EXTREMITIES: Reveal no cyanosis, clubbing or edema. Previously noted edema has dissipated at this time. NEUROLOGICAL: Reveals higher functions to be normal. No focal deficits are discernable. Even though the patient has early dementia, the patient is able to recognize me and she is awake, alert and aware of the surroundings. /RECTAL: Deferred. LABORATORY DATA: Lab data from today reveals a white count of 4.4, hemoglobin 10.6, hematocrit 31.9, platelet count 71,000. Sodium is 141, K is 4.2, chloride 107, CO2 is 26, BUN of 26, creatinine 1 and blood sugar of 110. PT/INR is within normal limits. MEDICATIONS: The patient's medications were reviewed are unchanged. She is on acetylcysteine 3 mL inhaled b.i.d. She is on DuoNeb 3 mL inhaled every 6 hours via the nebulizer, amlodipine 10 mg p.o. daily, Brovana 15 mcg inhaled twice a day, budesonide/Pulmicort Respules 0.5 mg inhaled every 12 hours. The patient is on Lovenox 60 mg subcutaneous b.i.d. She is on vitamin D one capsule every 7 days, folic acid 1 mg daily, Lasix 20 mg daily. The patient is on piperacillin 3.375 mg every 6 hours. She is on Levaquin 500 mg daily. She is on vancomycin 1 g IV piggyback daily. She is on Keppra 500 every 12 hours. She is on Zestril 10 mg p.o. daily. She is on Namenda 10 mg p.o. daily. She is on methylprednisolone 30 mg IV every 12 hours, Lopressor 25 mg daily. She is on Amitiza 24 mcg p.o. b.i.d. She is on potassium chloride 20 mEq p.o. daily. ASSESSMENT, NOTES AND PLAN: The patient has stage IV metastatic non-small cell lung carcinoma with documented brain metastasis, status post craniotomy and resection of the brain lesions followed by whole brain radiation, followed by systemic chemotherapy with carboplatin and pemetrexed, Keytruda. Currently on Keytruda alone. Last treatment was a few weeks ago, who is admitted with severe sepsis due to healthcare-associated pneumonia. The patient is on vancomycin, Zosyn and Levaquin day 6 to complete 7 days of antibiotics. We will discontinue vancomycin and Zosyn. Urine Legionella has been negative. Cultures have been negative. Discussed the case with Dr. Escudero, the Infectious Disease specialist. The patient will continue Lovenox now and the patient is being assessed for transfer to subacute rehab for deconditioning so that she can become more independent especially with ambulation. When the patient is ready, we will switch her over from low molecular weight heparin to probably a Xa inhibitor such as Eliquis. Routine post exam instructions have been given to the patient. Followup CAT scan of the pelvis will be requested 3 weeks from the last one to see the status of the clot in the pelvic vein that was picked up initially on a CAT scan. Time spent with the patient was 80 minutes out of which more than 50% was spent in face to face contact with the patient, correlating all the data and make some decision and plans. Lamberto Carranza MD [facility] # [id number]
--- NOTE | 2018-05-27 01:26 | PN ---
DATE: 05/26/2018 PULMONARY PROGRESS NOTE REFERRING PHYSICIAN: Yaneth Darby MD SUBJECTIVE: She is lying in the bed, head at 45 degrees. Night was unremarkable. Cough is better. No nausea, no vomiting, no diarrhea. No leg pain or leg swelling. PHYSICAL EXAMINATION: GENERAL: In no acute distress. VITAL SIGNS: Temperature is 98, heart rate is 110, respiratory rate is 20, blood pressure 105/73, pulse ox 94% on nasal cannula. HEENT: Moist mucous membrane. Crowded airway. NECK: Supple. No JVD. LUNGS: Have fair airflow with few rhonchi. HEART: S1 and S2. ABDOMEN: Soft, nontender. No organomegaly. EXTREMITIES: There is no edema. NEUROLOGIC: Awake, alert, and follows simple command. MEDICATIONS: She is on Mucomyst inhaled twice a day, Brovana inhaled twice a day, vitamin D one capsule every 7 days, DuoNeb every 6 hours p.r.n., folic acid 1 mg daily, Keppra 500 mg twice a day, Lasix 20 mg daily, Levaquin 500 mg daily, metoprolol tartrate 25 mg daily, Lovenox 60 mg subcu twice a day, Amitiza 24 mcg daily, Namenda 10 mg at bedtime, Norvasc 10 mg daily, Protonix 40 mg daily, Pulmicort inhaled twice a day, Solu-Medrol every 12 hour, Zestril 10 mg daily. LABORATORY DATA: Reviewed. No other new lab is available since yesterday. 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 Pulmonary point of view, doing well. Spoke to nursing staff. Keep head at 45 degrees. Gastric prophylaxis. Deep vein thrombosis prophylaxis. Fall precaution. Oncology and Hematology followup. Thank you and we will follow with you. Chica Palmer MD
[2018-05-27] MEDS: Enoxaparin 60 mg Syringe SC SCH ×2 (05:34→18:23)
[2018-05-27] MEDS: Acetylcysteine 20% Inhal Soln (4ml) INH SCH ×2 (07:15→19:15)
[2018-05-27] MEDS: Budesonide 0.5 mg/2 ml Inhal Susp UD IH SCH ×2 (07:16→19:16)
[2018-05-27] MEDS: Arformoterol 15 mcg/2 ml Inh Sol IH SCH ×2 (07:16→19:16)
--- NOTE | 2018-05-27 08:18 | CP.PCM.PN ---
Subjective - Date & Time of Evaluation Date of Evaluation: 05/27/18 Time of Evaluation: 08:00 - Subjective Subjective: [facility] Progress note for Dr. Carranza Patient seen and examined at bedside. Patient is ao x 3 and was sitting up in bed eating breakfast. Nursing reported no acute events overnight. Patient denied complaints of fever, chills, headache, dizziness, chest pain, palpitations, SOB, cough, abd pain, nausea, vomiting, bowel/bladder complaints. Patient is receiving chemo and tolerating. Objective - Vital Signs/Intake and Output Vital Signs (last 24 hours): Temp Pulse Resp BP Pulse Ox 98.3 F 130 H 19 108/66 94 L 05/26/18 18:00 05/26/18 22:05 05/26/18 18:00 05/26/18 22:05 05/26/18 18:00 Intake and Output: 05/27/18 05/27/18 06:59 18:59 Output Total 200 Balance -200 - Medications Medications: Current Medications Acetylcysteine (Acetylcysteine 20%) 3 ml INH BIDRESP [facility] Last Admin: 05/27/18 07:15 Dose: 3 ml Albuterol/Ipratropium (Duoneb 3 Mg/0.5 Mg (3 Ml) Ud) 3 ml IH [id number] PRN PRN Reason: Shortness of Breath Last Admin: 05/21/18 06:00 Dose: 3 ml Amlodipine Besylate (Norvasc) 10 mg PO DAILY [facility] Last Admin: 05/26/18 10:02 Dose: Not Given Arformoterol Tartrate (Brovana) 15 mcg IH [id number] [facility] Last Admin: 05/27/18 07:16 Dose: 15 mcg Budesonide (Pulmicort Respules) 0.5 mg IH [id number] [facility] Last Admin: 05/27/18 07:16 Dose: 0.5 mg Enoxaparin Sodium (Lovenox) 60 mg SC 0600,1800 JACQUIE PRN Reason: Protocol Last Admin: 05/27/18 05:34 Dose: 60 mg Ergocalciferol (Drisdol 50,000 Intl Units Cap) 1 cap PO Q7D [facility] Folic Acid (Folic Acid) 1 mg PO DAILY [facility] Last Admin: 05/26/18 09:58 Dose: 1 mg Furosemide (Lasix) 20 mg PO DAILY [facility] Last Admin: 05/26/18 09:59 Dose: Not Given Levofloxacin/Dextrose (Levaquin 500mg) 500 mg in 100 mls @ 100 mls/hr IVPB DAILY [facility] PRN Reason: Protocol Stop: 05/29/18 18:40 Last Admin: 05/26/18 10:00 Dose: 100 mls/hr Levetiracetam (Keppra) 500 mg PO Q12 [facility] Last Admin: 05/26/18 21:56 Dose: 500 mg Lisinopril (Zestril) 10 mg PO DAILY [facility] Last Admin: 05/26/18 10:03 Dose: Not Given Memantine (Namenda) 10 mg PO HS [facility] Last Admin: 05/26/18 21:57 Dose: 10 mg Methylprednisolone (Solu-Medrol) 20 mg IVP Q12 [facility] Last Admin: 05/26/18 22:01 Dose: 20 mg Metoprolol Tartrate (Lopressor) 25 mg PO DAILY [facility] Last Admin: 05/26/18 22:05 Dose: 25 mg Non-Formulary Medication (Lubiprostone [Amitiza]) 24 mg PO BID [facility] Last Admin: 05/26/18 17:18 Dose: Not Given Pantoprazole Sodium (Protonix Ec Tab) 40 mg PO DAILY [facility] Last Admin: 05/26/18 10:02 Dose: 40 mg Potassium Chloride (K-Dur 20 Meq Er Tab) 20 meq PO DAILY [facility] Last Admin: 05/26/18 09:58 Dose: 20 meq - Labs Labs: 05/24/18 07:30 05/25/18 06:00 PT 12.8 SECONDS (9.4-12.5) H 05/20/18 10:45 INR 1.11 (0.93-1.08) H 05/20/18 10:45 APTT 24.7 Seconds (25.1-36.5) L 05/20/18 10:45 - Additional Findings Additional findings: - Constitutional Appears: Non-toxic, No Acute Distress - Head Exam Head Exam: ATRAUMATIC, NORMAL INSPECTION, NORMOCEPHALIC - Eye Exam Eye Exam: EOMI, Normal appearance. absent: Conjunctival injection, Scleral icterus Pupil Exam: PERRL - ENT Exam ENT Exam: Mucous Membranes Moist - Neck Exam Neck Exam: Full ROM - Respiratory Exam Respiratory Exam: NORMAL BREATHING PATTERN, + coarse breath sounds b/l absent: Accessory Muscle Use, Rales, Rhonchi, Wheezing, Respiratory Distress - Cardiovascular Exam Cardiovascular Exam: +S1, +S2 - GI/Abdominal Exam GI & Abdominal Exam: Soft, Normal Bowel Sounds. absent: Firm, Guarding, Rigid, Tenderness - Rectal Exam Rectal Exam: Deferred - Extremities Exam Extremities Exam: Normal Inspection. absent: Pedal Edema - Neurological Exam Neurological Exam: Alert, Awake, Oriented x3 - Psychiatric Exam Psychiatric exam: Normal Affect, Normal Mood - Skin Skin Exam: Dry, Intact Assessment and Plan - Assessment and Plan (Free Text) Assessment: 63yo female PMHx metastatic NSCLC stage 4 with brain metastases s/p craniotomy with resection of the lesions admitted for shortness of breath. CTA negative for PE. CT Abd/pelvis significant for large lot in the IVC measuring 11cm extending from renal veins to the bifurcations. Venous dopplers LE negative b/ l. IR reccs apprecaited- patient wearing stockings and on therapeutic lovenox- will switch to Eliquis 5mg bid when patient is dc planning.. Thrombocytopenia noted; peripheral smear: RBC are normocytic normochromi with slight anisocytosis ; few ovalocytes seen. No schistocytes present. Polychromasia seen; occasional nucleated RBC identified. Platelets are adequate in number; no clumping of platelets present; no atypical cells/immature forms identified. Fibrinogen 396 and Fibrin split products >40. CXR showed nodules seen previously in the left upper lobe are no longer seen and no focal infiltrate. Abd xray negative. Patient restarted on her home medications with Duoneb q6 prn SOB. MRI brain- no mets noted. Cultures negative x 2 blood and negative x 1 urine- patient on Levaquin until 05/29 per ID. Neuro, ID, Pulm consulted- appreciate reccs. Continue management as per primary. Patient denied TCU- social work faculty member consulted for [facility] placement. Recommend CT with contrast to examine IVC and iliac vein in 3 weeks. Patient to follow up at infusion clinic to resume Truvada infusion while at [facility] and to follow up in clinic with Dr. Carranza upon discharge. Discussed with Dr. Dillon Hdez PGY2
[2018-05-27] MEDS: Ergocalciferol 50,000 Intl Units Cap PO SCH (10:00)
[2018-05-27] MEDS: LUBIPROSTONE 24 MG PO SCH ×2 (11:22→18:24)
[2018-05-27] MEDS: Pantoprazole 40 mg EC Tab PO SCH (11:49)
[2018-05-27] MEDS: Potassium Chloride 20 mEq ER Tab PO SCH (11:49)
[2018-05-27] MEDS ORDERED: Sodium Chloride 0.9% 500 ML IV STA (12:18)
[2018-05-27] MEDS ORDERED: Sodium Chloride 0.9% 1,500 ML IV STA (12:23)
[2018-05-27] MEDS ORDERED: Vancomycin 1gm in NS 250ml 1 GM/250 ML BAG IVPB STA (12:24)
[2018-05-27] MEDS ORDERED: Sodium Chloride 0.9% 2,000 ML IV STA (12:33)
[2018-05-27] MEDS ORDERED: Piperacillin/Tazobact 3.375 gm 100 ML IVPB SCH (12:35)
--- NOTE | 2018-05-27 12:57 | RAD ---
HISTORY: sepsis COMPARISON: 05/20/2018 FINDINGS: LUNGS: Patchy left-sided pulmonary opacity mid and upper lung. Possible pneumonia. New since prior. No abnormal right-sided opacity. PLEURA: No significant pleural effusion identified, no pneumothorax apparent. CARDIOVASCULAR: Normal heart size. Right internal jugular central venous infusion port. OSSEOUS STRUCTURES: No significant abnormalities. VISUALIZED UPPER ABDOMEN: Normal. OTHER FINDINGS: None. IMPRESSION: Ill-defined left-sided pulmonary infiltrate mid and upper lung. Possible pneumonia. Followup advised.
[2018-05-27 13:08] LABS: BASO # 0.01 K/mm3 (0.0-2.0); BASO % 0.2 % (0.0-3.0); EOS % 0.4 % (1.5-5.0); GRAN # 4.88 (1.4-6.5); GRAN % 89.3 % (50.0-68.0); HEMOGLOBIN 12.5 g/dL (12.0-16.0); LYMPH # 0.5 (1.2-3.4); LYMPH % 8.6 % (22.0-35.0); MEAN CELL VOLUME 99.7 fl (80.0-105.0); MEAN CORPUSCULAR HEMOGLOBIN 34.1 pg (25.0-35.0); MEAN CORPUSCULAR HGB CONC 34.2 g/dl (31.0-37.0); MEAN PLATELET VOLUME 10.2 fl (7.0-11.0); MONO # 0.1 (0.1-0.6); MONO % 1.5 % (1.0-6.0); RBC 3.67 10^6/uL (3.5-6.1); RED CELL DISTRIBUTION WIDTH 14.7 % (11.5-14.5); WHITE BLOOD COUNT 5.5 10^3/ul (4.5-11.0)
[2018-05-27 13:10] LABS: ARTERIAL BLOOD GAS HCO3 17.6 mmol/L (21-28); ARTERIAL BLOOD GAS O2 SAT 96.7 % (95-98); ARTERIAL BLOOD GAS PCO2 22 mm/Hg (35-45); ARTERIAL BLOOD GAS PH 7.51 (7.35-7.45); ARTERIAL BLOOD GAS TCO2 18.3 mmol.L (22-28)
--- NOTE | 2018-05-27 13:18 | PCM.RRT ---
<Alex Post - Last Filed: 05/27/18 13:15> SUPERVISOR [employer]IVETING Nurse Assessment - Situation Date: 05/27/18 Time SUPERVISOR RIVETING was called: 12:07 [employer]PERVISOR [employer] Responder Arrival Time: 12:09 [employer]VIS[employer] Location:: [address] [place] [address] Room Number: [id number] [employer] Reason for Call: Tachycardia, Hypotension [employer] Called By: RN - IV IV Inserted during SUPERVISOR RIVETING?: No - Respiratory Oxygen Delivery Method: Nasal Cannula @L/min Oxygen Flow Rate: 3 Received Nebulizer Treatments:: No Was the Patient Ventilated with Bag/Mask 100% O2?: No Secretions Suctioned?: No Was the Patient Intubated?: No Was the Patient Placed on a Ventilator?: No - Medication Medications Administered During SUPERVISOR RIVETING: 0.9 normal saline 500 mg x 2 bolus - Diagnostic Test Ordered EKG: Yes Chest X-Ray: No CT Scan: No - Stat Labs Ordered [employer]PERVISOR [employer]IVETING Stat Labs Ordered: CBC, BMP, TROPONIN, LACTIC ACID, BLOOD C&S X2, ABG CPR started during SUPERVISOR RIVETING?: No - Vital Signs Vital Sign: Rapid Response Vital Sign Blood Pressure 98/56 Pulse Rate 154 Respiratory Rate 20 Temperature 101.2 F Oxygen Saturation 96 - Finger Stick Blood Glucose Finger Stick Blood Glucose: 165 - Lisa Coma Scale Coma Scale Eye Opening: Spontaneous Coma Scale Motor: Obeys Commands Movement Coma Scale Verbal: Oriented - Sepsis Screen Part 1 Sepsis Screen Part 1: Hypotensive, Temperature over 100.6F - Time SUPERVISOR RIVETING Ended Time SUPERVISOR RIVETING Ended: 12:25 - Vital Signs at end of SUPERVISOR RIVETING Vital Signs at end of SUPERVISOR RIVETING: Rapid Response End Vital Sign Blood Pressure 102/68 Pulse Rate 151 Respiratory Rate 20 Temperature 101.2 F - Recommendations 5) SUPERVISOR RIVETING Level of Care Recommendations: Transfer to Telemetry Notifications: Attending Physician I.Reason for SUPERVISOR RIVETING - A) Acute Change in Patient: (Select all that apply): Acute change in heart rate less than 50 or greater than 120, Acute change in SBP below - Neurological Status (Select all that apply): Alert, Responsive, Oriented, Verbal, Follows Commands - Respiratory Oxygen Delivery Method: Nasal Cannula @L/min Oxygen Flow Rate: 3 - Constitutional Appears: Toxic, No Acute Distress. absent: Confused - Head Head Exam: NORMAL INSPECTION - Eyes Eye Exam: EOMI, Normal appearance - Respiratory Exam Respiratory Exam: Wheezes Additional comments: Tachypnea - Cardiovascular Exam Cardiovascular Exam: Tachycardia, REGULAR RHYTHM, +S1, +S2 - GI/Abdominal Exam GI & Abdominal Exam: Soft. absent: Distended, Firm, Guarding, Rigid, Tenderness - Neurological Exam Neurological Exam: Alert, Awake, Oriented x3 - Extremities Exam Extremities Exam: absent: Calf Tenderness, Pedal Edema Plan - Assessment of Findings&Treatment Plan 63 yo F being treated for bilateral DVT and COPD exacerbation. SUPERVISOR RIVETING was called for tachycardia and hypotension noted on examination of vital signs. Patient had no particular complaints, but was noted to be shivering. EKG and NS bolus was ordered. EKG interpreted as sinus tachycardia. Patient denied any chest pain or shortness of breath. After initiation of bolus, BP improved. Patient was found to be febrile on rectal temp. Code sepsis was called and sepsis workup and treatment was initiated with CXR, UA, panculture including a culture through the port, CBC, CMP, procal, stool for C diff, and treated with vancomycin and merrem, and 30ml/kg fluid bolus. Patient was transferred to telemetry for closer monitoring. <Gabby Lucero - Last Filed: 05/27/18 19:11> SUPERVISOR [employer]IVETING Nurse Assessment - Vital Signs Vital Sign: Rapid Response Vital Sign Blood Pressure 98/56 Pulse Rate 154 Respiratory Rate 20 Temperature 101.2 F Oxygen Saturation 96 - Vital Signs at end of SUPERVISOR RIVETING Vital Signs at end of SUPERVISOR RIVETING: Rapid Response End Vital Sign Blood Pressure 102/68 Pulse Rate 151 Respiratory Rate 20 Temperature 101.2 F Attending/Attestation - Attestation I have personally seen and examined this patient.: Yes I have fully participated in the care of the patient.: Yes I have reviewed all pertinent clinical information, including history, physical exam and plan: Yes Notes (Text): 05/27/18 19:09 attending note; Patient seen and examined during rapid response. rapid response was called for fever, tachycardia and hypotension. Code sepsis called. IV fluids given. blood pressure stabilized. patient is a 63-year-old female with a history of lung cancer with brain metastasis, DVT currently on therapeutic dose of Lovenox. chest x-ray showed no infiltrate. Started on meropenem and vancomycin. Follow-up plan cultures. Case discussed with pulmonary detail. Transfer the patient to telemetry. Case discussed PMD in detail. 05/27/18 19:11
[2018-05-27 13:22] LABS: ALBUMIN 3.1 g/dL (3.0-4.8); ALT/SGPT 49 U/L (7-56); AST/SGOT 47 U/L (14-36); BLOOD UREA NITROGEN 27 mg/dL (7-21); CALCIUM 8.8 mg/dL (8.4-10.5); GFR AFRICAN-AMERICAN > 60; GFR NON-AFRICAN AMERICAN 56
[2018-05-27 13:30] LABS: TROPONIN I 0.02 ng/mL
[2018-05-27] MEDS: MethylPREDNISolone 40 mg Vial IVP SCH ×2 (13:59→21:16)
[2018-05-27 16:53] LABS: VENOUS BLOOD GAS BASE EXCESS -0.5 mmol/L (0.0-2.0); VENOUS BLOOD GAS PO2 52 mm/Hg (30-55); VENOUS BLOOD PH 7.44 (7.32-7.43)
--- NOTE | 2018-05-27 18:16 | PCM.SEPTIC ---
Sepsis Progress Note - Reassessment Type Date of Evaluation: 05/27/18 Time of Evaluation: 17:55 Reassessment Type: Non-invasive reassessment - Non Invasive Reassessment Were the most recent vital sign reviewed: Yes Vital Sign (Latest): Temp Pulse Resp BP Pulse Ox 98.7 F 100 H 21 139/95 H 94 L 05/27/18 17:56 05/27/18 17:56 05/27/18 17:56 05/27/18 17:56 05/27/18 08:19 Cardiovascular: Yes: Regular Rate, Rhythm, Tachycardia. No: Edema, JVD Respiratory: Yes: Normal Breath Sounds. No: Rales, Rhonchi, Wheezing Capillary Refill: Normal (Less than 2 sec) Skin: Normal Color, Warm, Dry
--- NOTE | 2018-05-27 20:51 | PN ---
DATE: 05/27/2018 SUBJECTIVE: The patient is a 63-year-old female. The patient was seen and examined at the bedside in the morning, looking comfortable, getting cleaned up after bowel movement. No nausea or vomiting. No headache. No dizziness. No chest pain. No palpitation, but after that around about 12 o'clock, there was rapid response for this patient because of tachycardia, hypotension, and tachypnea. Nasal cannula was given. The patient was ventilated with bag and mask 100% oxygen. No fever. No chills. No headache. No dizziness. The patient the heart rate ranges from 50, greater than 120. PHYSICAL EXAMINATION: VITAL SIGNS: Temperature 98.1, T-max 101.2, pulse 154, blood pressure 98/56, and respiratory rate 20. HEENT: Head: Normocephalic and atraumatic. Eyes: PERRLA. Extraocular muscles intact. Conjunctivae clear. Nose patent. Mucous membrane moist. NECK: Supple. No carotid bruit. No JVD or thyromegaly. CHEST: Bilaterally symmetrical. HEART: S1 and S2 positive. LUNGS: Clear to auscultation. ABDOMEN: Soft. Bowel sounds positive. No organomegaly. EXTREMITIES: No edema. No cyanosis. NEUROLOGICAL: The patient is awake and alert. Moving all 4 extremities. No focal deficits. MEDICATIONS: Acetylcysteine, Brovana, verapamil, vitamin D, folic acid, potassium, furosemide, Lovenox, Amitiza, folic acid, Keppra. LABORATORY DATA: White blood cells 5.5; hemoglobin 12.5 and on 05/24/2018, it was 10.6; hematocrit 36.6; platelets 57. Sodium 139, potassium 4. BUN 27 and creatinine 1. Glucose 134. ASSESSMENT AND PLAN: Ms. Nicol Brannon is a 63-year-old female with leukopenia, anemia, thrombocytopenia, hyperchloremia, renal insufficiency, abnormal liver function test, proteinuria, and hematuria. Looks like septic. Had rapid response today due to tachypnea, tachycardia and fever. Infectious Disease consult called. Septic workup done. The patient has history of metastatic non-small cell lung cancer stage IV with brain metastasis, status post craniotomy with resection of the lesion. CAT scan is negative for pulmonary embolism. Has inferior vena cava filter. Venous Doppler of lower extremities negative bilaterally. appreciated. The patient is wearing stocking and is on therapeutic Lovenox. We will switch to Eliquis as per Dr. Carranza. Pulmonary is on the case. The patient is on Levaquin. Working on subacute rehabilitation placement. Recommended CT with contrast to examine inferior vena cava and iliac vein in 3 weeks. Can arrange followup in [facility] to resume a Truvada infusion while at subacute rehabilitation and to follow up in clinic with Dr. Carranza. Gastrointestinal and deep venous thrombosis prophylaxes given. Repeat labs. We will follow up. Yaneth Darby MD MTDD
--- NOTE | 2018-05-27 21:07 | CON ---
DATE: 05/27/2018 CARDIOLOGY CONSULTATION REASON FOR THE CONSULTATION: Follow up tachycardia, cardiac evaluation. BRIEF CLINICAL HISTORY: The patient is 63-year-old female with a past medical history significant for non-small cell cancer with metastasis to the brain in the past requiring craniotomy and resection. Admitted with a shortness of breath, was found also to have thrombosis in inferior vena cava, found to be tachycardic, so Cardiology consult was called. The patient denies any chest pain, denies any shortness of breath, denies any palpitation at rest. PAST MEDICAL HISTORY: Significant for stage IV non-small cell cancer with metastasis, history of seizure disorder, history of metastasis to the brain and status post craniotomy and tumor resection. Past history is also significant for COPD, asthma, lung cancer as mentioned with mets to the brain status post craniotomy, getting chemotherapy. SOCIAL HISTORY: Still the patient actively smokes one to three cigarettes per day. FAMILY HISTORY: Father and mother, noncontributory. ALLERGIES: NO KNOWN DRUG ALLERGIES. CURRENT MEDICATIONS: The patient at home prior to coming here, was taking metoprolol 25 mg daily, amlodipine, Keppra, lisinopril, Namenda, folic acid, Lasix, and dexamethasone. REVIEW OF SYSTEMS: As per HPI. PHYSICAL EXAMINATION: VITAL SIGNS: Temperature afebrile, heart rate 116, blood pressure 93/61. HEENT: PERRLA. Extraocular muscles intact. NECK: Supple. No carotid bruit or thyromegaly. CHEST: Clear to auscultation. HEART: S1, S2 regular. ABDOMEN: Soft. EXTREMITIES: Clubbing and cyanosis negative. LABORATORY DATA: Blood workup as follows: WBC 4.4, hemoglobin 10.6, hematocrit 31.9, platelet count 71. Chemistry shows sodium 141, potassium 4.2, chloride 107, carbon dioxide 26, anion gap of 13, BUN 26, creatinine 1. AST is 63, ALT 88. TSH 0.16. IMPRESSION: Sinus tachycardia, cannot rule out underlying atrial flutter; diabetes; hypertension; obesity; active tobacco abuse; history of lung carcinoma with metastasis, stage IV non-small cell cancer with metastasis to the brain status post craniotomy; blood pressure on the lower side. RECOMMENDATIONS: We will discontinue amlodipine, we will discontinue lisinopril and we will put low dose of verapamil, give 2.5 IV to slow the heart rate and see whether this patient is fluttering. Telemetry monitoring shows sinus tachycardia but carefully, heart rate at 140s was probably, it was atrial flutter. On admission, the patient was in sinus rhythm. We will give verapamil and then change p.o. verapamil. Monitor closely, continue DVT prophylaxis, continue anticoagulation because patient has already thrombosis in IVC, so the patient already has been anticoagulated. We will follow closely. We will repeat EKG. Overall, the patient's condition is critical, long-term prognosis is extremely guarded. We should discuss DNR status, we will follow with you. Thank you, Dr. Darby, for providing us the opportunity in taking care of the patient Clovis Camarena. Chica Simon MD
[2018-05-27] MEDS: Meropenem IV 1 gm in NS 50 ML IVPB SCH (21:16)
--- NOTE | 2018-05-27 22:49 | CARD ---
APPROVED REPORT EKG Measurement Heart [id number] <Conclusion> Sinus tachycardia Nonspecific ST abnormality Abnormal ECG
[2018-05-27 23:32] LABS: URINE BILIRUBIN NEGATIVE (NEGATIVE); URINE BLOOD TRACE-INTACT (NEGATIVE); URINE GLUCOSE (UA) NEGATIVE (NEGATIVE); URINE LEUKOCYTE ESTERASE NEGATIVE Leu/uL (NEGATIVE); URINE PROTEIN 30 mg/dL (<30 mg/dL); URINE UROBILINOGEN 0.2 E.U./dL (<1 E.U./dL)
--- NOTE | 2018-05-27 23:36 | PN ---
DATE: 05/27/2018 SUBJECTIVE: The patient is in bed, in no acute distress, nontoxic. The patient is seen early this morning in room 377, bed 1. Later on, the patient had a code sepsis and had a fever, which was new. PHYSICAL EXAMINATION VITAL SIGNS: Temperature of 101.2, blood pressure 93/60, respiratory rate of 20, heart rate of 116. HEENT: Unremarkable. NECK: Supple. LUNGS: Decreased breath sounds. HEART: Normal S1 and S2. ABDOMEN: Soft, nontender. LABORATORY DATA: Reveals a white count of 5.5, hemoglobin of 12, platelets of 57. Chemistries reveals a BUN of 27, creatinine of 1, procalcitonin 0.05. Urinalysis is noted. Serology is urine for Legionella antigen is negative. Microbiology, the cultures are negative. report is reviewed and appreciated. Chest x-ray, patchy left-sided pulmonary opacities are noted; new since prior. Dr. Palmer's note yesterday is reviewed. ASSESSMENT AND PLAN: This is a 63-year-old female, who is seen earlier this morning who was comfortable at that time, in room 377, bed 1, now moved to 260 after code sepsis with severe sepsis, now with sepsis due to a new healthcare-associated pneumonia in a patient with non-small cell lung cancer stage IV bone metastases. The patient had completed the antibiotics over 7 days. We will restart vancomycin and now we will order meropenem with the vancomycin, pending blood culture, urine culture, sputum cultures and procalcitonin in this patient who is overall in poor condition. Prognosis is poor. We will follow closely with you. Serge Kruse MD
[2018-05-27 23:37] LABS: URINE APPEARANCE CLEAR (CLEAR); URINE COLOR YELLOW (YELLOW)
[2018-05-27] MEDS: Vancomycin 1gm in NS 250ml 1 GM/250 ML BAG IVPB SCH (23:45)
[2018-05-27 23:51] LABS: URINE BACTERIA OCC (NEG); URINE RBC 0 - 2 /hpf (0-2); URINE WBC NEGATIVE /hpf (0-6)
--- NOTE | 2018-05-28 01:24 | PN ---
DATE: 05/27/2018 PULMONARY PROGRESS NOTE REFERRING PHYSICIAN: Yaneth Darby MD SUBJECTIVE: At the time she was seen by me, she was in mild respiratory distress with uncontrolled heart rate up to 130-140 with hypertension , pulse ox was 93-94%. She has some shortness of breath. No hemoptysis, hematemesis, hematuria. No diarrhea, leg pain or leg swelling reported. OBJECTIVE: GENERAL: [id number] distress. VITAL SIGNS: Temperature is 98, heart rate was 140, respiratory rate is 20, blood pressure 103/71. HEENT: Moist mucous membrane. Crowded airway. NECK: Supple. No JVD. LUNGS: Has few scattered rhonchi. HEART: S1 and S2, tachycardic. ABDOMEN: Soft, nontender. No organomegaly. EXTREMITIES: There is no edema. NEUROLOGIC: Awake, alert, and follow simple commands. MEDICATIONS: She is on Mucomyst inhaled twice a day, Brovana inhaled twice a day, Calan 240 mg three times a day, vitamin D 50,000 units every 7 days, folic acid 1 mg daily, potassium 20 mEq daily, Keppra 500 mg twice a day, Lasix 20 mg which is on hold, Lovenox 60 mg subcu twice a day, meropenem is started 1 g IV every 8 hours, Namenda 10 mg daily, Protonix 40 mg daily, Pulmicort inhaled twice a day, Solu-Medrol 20 mg every 12 hours, vancomycin also being started 1 g daily. She received verapamil 2.5 mg and Xopenex every 6 hours p.r.n. LABORATORY DATA: Shows hemoglobin 12.5, hematocrit 36.6, WBC of 5.5, platelet count is 57. Has VBG done which shows pH 7.44, pCO2 of 34, O2 sat of 89. Sodium 139, potassium 4, chloride 109, bicarbonate 17, BUN 27, creatinine 1, glucose 134, calcium is 8.8, AST 47, ALT 49, alk phos is 58. Troponin 0.02. Albumin is 3.1. Microbiology, blood culture, urine culture, there is no growth. IMAGING STUDIES: Had a chest x-ray done which shows ill-defined left side pulmonary infiltrate made an upper lung possible pneumonia. IMPRESSION AND PLAN: Sepsis, probably aspiration pneumonia. Has a chronic lung disease, non-small cell lung cancer with metastatic disease to bone and brain, history of craniotomy for resection of tumor in the past, active smoker. Case discussed with Dr. Lucero who was response. Fluid challenge is being given. Started on broad-spectrum antibiotics, supplemental oxygen. We will get a swallow evaluation to assure the appropriate diet. Gastric prophylaxis. She is on no anticoagulation. Thank you and we will follow with you. Chica Palmer MD
[2018-05-28] MEDS: Enoxaparin 60 mg Syringe SC SCH ×2 (05:17→18:57)
[2018-05-28] MEDS: Meropenem IV 1 gm in NS 50 ML IVPB SCH ×3 (05:17→21:23)
[2018-05-28] MEDS: Arformoterol 15 mcg/2 ml Inh Sol IH SCH ×2 (07:36→19:38)
[2018-05-28] MEDS: Acetylcysteine 20% Inhal Soln (4ml) INH SCH ×2 (07:36→19:38)
[2018-05-28] MEDS: Budesonide 0.5 mg/2 ml Inhal Susp UD IH SCH ×2 (07:36→19:38)
--- NOTE | 2018-05-28 07:44 | CP.PCM.PN ---
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 History of COPD, current smoker,hypertension Seen and examined by me and Dr. Simon Objective - Vital Signs/Intake and Output Vital Signs (last 24 hours): Temp Pulse Resp BP Pulse Ox 98.3 F 104 H 19 102/67 100 05/28/18 06:00 05/28/18 06:00 05/28/18 06:00 05/28/18 06:00 05/28/18 06:00 Intake and Output: 05/28/18 05/28/18 06:59 18:59 Intake Total 240 Output Total 100 Balance 140 - Medications Medications: Current Medications Acetylcysteine (Acetylcysteine 20%) 3 ml INH BIDRESP JACQUIE Last Admin: 05/28/18 07:36 Dose: 3 ml Arformoterol Tartrate (Brovana) 15 mcg IH [id number] JACQUIE Last Admin: 05/28/18 07:36 Dose: 15 mcg Budesonide (Pulmicort Respules) 0.5 mg IH [id number] [facility] Last Admin: 05/28/18 07:36 Dose: 0.5 mg Enoxaparin Sodium (Lovenox) 60 mg SC 0600,1800 JACQUIE PRN Reason: Protocol Last Admin: 05/28/18 05:17 Dose: 60 mg Ergocalciferol (Drisdol 50,000 Intl Units Cap) 1 cap PO Q7D [facility] Last Admin: 05/27/18 10:00 Dose: Not Given Folic Acid (Folic Acid) 1 mg PO DAILY JACQUIE Last Admin: 05/27/18 11:49 Dose: 1 mg Furosemide (Lasix) 20 mg PO DAILY [facility] Last Admin: 05/27/18 10:00 Dose: Not Given Meropenem (Merrem Iv 1 Gm Premix) 50 mls @ 100 mls/hr IVPB Q8 JACQUIE PRN Reason: Protocol Stop: 06/05/18 22:01 Last Admin: 05/28/18 05:17 Dose: 100 mls/hr Vancomycin HCl (Vancomycin 1gm) 1 gm in 250 mls @ 167 mls/hr IVPB DAILY JACQUIE PRN Reason: Protocol Stop: 06/05/18 10:01 Last Admin: 05/27/18 23:45 Dose: Not Given Levalbuterol HCl (Xopenex) 0.63 mg IH [id number] PRN PRN Reason: Shortness of Breath Levetiracetam (Keppra) 500 mg PO Q12 [facility] Last Admin: 05/27/18 21:17 Dose: 500 mg Memantine (Namenda) 10 mg PO HS [facility] Last Admin: 05/27/18 21:17 Dose: 10 mg Methylprednisolone (Solu-Medrol) 20 mg IVP Q12 [facility] Last Admin: 05/27/18 21:16 Dose: 20 mg Non-Formulary Medication (Lubiprostone [Amitiza]) 24 mg PO BID [facility] Last Admin: 05/27/18 18:24 Dose: Not Given Pantoprazole Sodium (Protonix Ec Tab) 40 mg PO DAILY [facility] Last Admin: 05/27/18 11:49 Dose: 40 mg Potassium Chloride (K-Dur 20 Meq Er Tab) 20 meq PO DAILY [facility] Last Admin: 05/27/18 11:49 Dose: 20 meq Verapamil HCl (Calan Tab) 40 mg PO TID [facility] Last Admin: 05/27/18 18:55 Dose: Not Given Verapamil HCl (Verapamil Inj) 2.5 mg IVP Q6H PRN PRN Reason: for heart rate >120 Last Admin: 05/27/18 21:17 Dose: 2.5 mg - Labs Labs: 05/27/18 12:50 05/27/18 12:50 PT 12.8 SECONDS (9.4-12.5) H 05/20/18 10:45 INR 1.11 (0.93-1.08) H 05/20/18 10:45 APTT 24.7 Seconds (25.1-36.5) L 05/20/18 10:45 - Constitutional Appears: No Acute Distress - Head Exam Head Exam: NORMOCEPHALIC - Eye Exam Eye Exam: Normal appearance - ENT Exam ENT Exam: Mucous Membranes Moist - Respiratory Exam Respiratory Exam: Decreased Breath Sounds, NORMAL BREATHING PATTERN Additional comments: nasal cannula - Cardiovascular Exam Cardiovascular Exam: +S1, +S2 Additional comments: Tachycardia- 106/min Telemetry right chest wall jsoe cath - GI/Abdominal Exam GI & Abdominal Exam: Soft, Normal Bowel Sounds - Extremities Exam Extremities Exam: Normal Capillary Refill - Neurological Exam Neurological Exam: Alert, Awake, Oriented x3 - Psychiatric Exam Psychiatric exam: Normal Affect, Normal Mood - Skin Skin Exam: Normal Color, Warm Assessment and Plan - Assessment and Plan (Free Text) Assessment: A 63 year old female who came in to the ER due to shortness of breath. 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 History of COPD, current smoker,hypertension. 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 Plan: Controlled tachycardia,heart rate on low 105/min Started on Verapamil 40 mg TID yesterday Controlled blood pressure Lasix 20 mg for leg edema Pulmonary and ID on consult Continue current medications Continue current treatment Will follow up Plan and treatment discussed with Dr. Simon
--- NOTE | 2018-05-28 08:31 | CP.PCM.PN ---
Subjective - Date & Time of Evaluation Date of Evaluation: 05/28/18 Time of Evaluation: 10:00 - Subjective Subjective: HemeOn Progress note for Dr. Carranza Patient seen and examined at bedside with family member at bedside. Prior day [employer] events noted. Patient denies any acute complaints and reports during [employer] she was not feeling any different. This AM patient denies acute complaints headache, dizziness, chest pain, palpitations, SOB, cough, abd pain, nausea, vomiting, bowel/bladder complaints, pain/swelling in her legs b/l. Patient encouraged to be OOB. Objective - Vital Signs/Intake and Output Vital Signs (last 24 hours): Temp Pulse Resp BP Pulse Ox 98.3 F 104 H 19 102/67 100 05/28/18 06:00 05/28/18 06:00 05/28/18 06:00 05/28/18 06:00 05/28/18 06:00 Intake and Output: 05/28/18 05/28/18 06:59 18:59 Intake Total 240 Output Total 100 Balance 140 - Medications Medications: Current Medications Acetylcysteine (Acetylcysteine 20%) 3 ml INH BIDRESP [facility] Last Admin: 05/28/18 07:36 Dose: 3 ml Arformoterol Tartrate (Brovana) 15 mcg IH [id number] [facility] Last Admin: 05/28/18 07:36 Dose: 15 mcg Budesonide (Pulmicort Respules) 0.5 mg IH [id number] [facility] Last Admin: 05/28/18 07:36 Dose: 0.5 mg Enoxaparin Sodium (Lovenox) 60 mg SC 0600,1800 [facility] PRN Reason: Protocol Last Admin: 05/28/18 05:17 Dose: 60 mg Ergocalciferol (Drisdol 50,000 Intl Units Cap) 1 cap PO Q7D [facility] Last Admin: 05/27/18 10:00 Dose: Not Given Folic Acid (Folic Acid) 1 mg PO DAILY [facility] Last Admin: 05/27/18 11:49 Dose: 1 mg Furosemide (Lasix) 20 mg PO DAILY [facility] Last Admin: 05/27/18 10:00 Dose: Not Given Meropenem (Merrem Iv 1 Gm Premix) 50 mls @ 100 mls/hr IVPB Q8 [facility] PRN Reason: Protocol Stop: 06/05/18 22:01 Last Admin: 05/28/18 05:17 Dose: 100 mls/hr Vancomycin HCl (Vancomycin 1gm) 1 gm in 250 mls @ 167 mls/hr IVPB DAILY JACQUIE PRN Reason: Protocol Stop: 06/05/18 10:01 Last Admin: 05/27/18 23:45 Dose: Not Given Levalbuterol HCl (Xopenex) 0.63 mg IH [id number] PRN PRN Reason: Shortness of Breath Levetiracetam (Keppra) 500 mg PO Q12 [facility] Last Admin: 05/27/18 21:17 Dose: 500 mg Memantine (Namenda) 10 mg PO HS [facility] Last Admin: 05/27/18 21:17 Dose: 10 mg Methylprednisolone (Solu-Medrol) 20 mg IVP Q12 [facility] Last Admin: 05/27/18 21:16 Dose: 20 mg Non-Formulary Medication (Lubiprostone [Amitiza]) 24 mg PO BID [facility] Last Admin: 05/27/18 18:24 Dose: Not Given Pantoprazole Sodium (Protonix Ec Tab) 40 mg PO DAILY [facility] Last Admin: 05/27/18 11:49 Dose: 40 mg Potassium Chloride (K-Dur 20 Meq Er Tab) 20 meq PO DAILY [facility] Last Admin: 05/27/18 11:49 Dose: 20 meq Verapamil HCl (Calan Tab) 40 mg PO TID [facility] Last Admin: 05/27/18 18:55 Dose: Not Given Verapamil HCl (Verapamil Inj) 2.5 mg IVP Q6H PRN PRN Reason: for heart rate >120 Last Admin: 05/27/18 21:17 Dose: 2.5 mg - Labs Labs: 05/27/18 12:50 05/27/18 12:50 PT 12.8 SECONDS (9.4-12.5) H 05/20/18 10:45 INR 1.11 (0.93-1.08) H 05/20/18 10:45 APTT 24.7 Seconds (25.1-36.5) L 05/20/18 10:45 - Additional Findings Additional findings: - Constitutional Appears: Non-toxic, No Acute Distress - Head Exam Head Exam: ATRAUMATIC, NORMAL INSPECTION, NORMOCEPHALIC - Eye Exam Eye Exam: EOMI, Normal appearance. absent: Conjunctival injection, Scleral icterus Pupil Exam: PERRL - ENT Exam ENT Exam: Mucous Membranes Moist - Neck Exam Neck Exam: Full ROM - Respiratory Exam Respiratory Exam: NORMAL BREATHING PATTERN, + coarse breath sounds b/l absent: Accessory Muscle Use, Rales, Rhonchi, Wheezing, Respiratory Distress - Cardiovascular Exam Cardiovascular Exam: +S1, +S2 - GI/Abdominal Exam GI & Abdominal Exam: Soft, Normal Bowel Sounds. absent: Firm, Guarding, Rigid, Tenderness - Rectal Exam Rectal Exam: Deferred - Extremities Exam Extremities Exam: Normal Inspection. absent: Pedal Edema - Neurological Exam Neurological Exam: Alert, Awake, Oriented x3 - Psychiatric Exam Psychiatric exam: Normal Affect, Normal Mood - Skin Skin Exam: Dry, Intact Assessment and Plan - Assessment and Plan (Free Text) Assessment: 63yo female PMHx metastatic NSCLC stage 4 with brain metastases s/p craniotomy with resection of the lesions admitted for shortness of breath. In light of [employer] events repeat CTA chest/abd/pelvis ordered- will f/u. First CTA negative for PE. First CT Abd/pelvis significant for large lot in the IVC measuring 11cm extending from renal veins to the bifurcations. Venous dopplers LE negative b/ l. IR reccs apprecaited- patient wearing stockings and on therapeutic lovenox- will switch to Eliquis 5mg bid when patient is dc planning.. Thrombocytopenia noted; peripheral smear: RBC are normocytic normochromi with slight anisocytosis ; few ovalocytes seen. No schistocytes present. Polychromasia seen; occasional nucleated RBC identified. Platelets are adequate in number; no clumping of platelets present; no atypical cells/immature forms identified. Fibrinogen 396 and Fibrin split products >40. CXR showed nodules seen previously in the left upper lobe are no longer seen and no focal infiltrate. Abd xray negative. Patient restarted on her home medications with Duoneb q6 prn SOB. MRI brain- no mets noted. Patient on Vanc and Merrem for suspected sepsis- f/u cultures. Neuro , ID, Pulm consulted- appreciate reccs. Continue management as per primary. Patient denied TCU- social organization professor consulted for [facility] placement. Recommend CT with contrast to examine IVC and iliac vein in 3 weeks. Patient to follow up at infusion clinic to resume Truvada infusion while at [facility] and to follow up in clinic with Dr. Carranza upon discharge. Discussed with Dr. Dillon Hdez PGY2
--- NOTE | 2018-05-28 09:21 | RAD ---
HISTORY: infiltrate COMPARISON: Portable chest 05/27/2018. FINDINGS: LUNGS: Interstitial changes remain prominent at the left greater the right mid superior lung zones suspicious for active interstitial pulmonary disease versus possible CHF. No alveolitis bilaterally. Right MediPort again identified in position. PLEURA: No significant pleural effusion identified, no pneumothorax apparent. CARDIOVASCULAR: Normal. OSSEOUS STRUCTURES: No significant abnormalities. VISUALIZED UPPER ABDOMEN: Normal. OTHER FINDINGS: None. IMPRESSION: Stable interstitial pneumonitis or possible limited CHF. No alveolitis bilaterally. No pleural effusion or pneumothorax bilaterally.
[2018-05-28] MEDS: Pantoprazole 40 mg EC Tab PO SCH (10:37)
[2018-05-28] MEDS: LUBIPROSTONE 24 MG PO SCH ×2 (10:38→18:41)
[2018-05-28] MEDS: Vancomycin 1gm in NS 250ml 1 GM/250 ML BAG IVPB SCH (10:38)
[2018-05-28] MEDS: Potassium Chloride 20 mEq ER Tab PO SCH (10:38)
[2018-05-28] MEDS: MethylPREDNISolone 40 mg Vial IVP SCH ×2 (10:38→21:23)
--- NOTE | 2018-05-28 11:12 | PN ---
DATE: 05/28/2018 SUBJECTIVE: The patient is seen in bed earlier this morning in room 260, bed 2. The patient is comfortable. No shortness of breath. No nausea or vomiting. She had an uneventful night. Temperature on downward trend. PHYSICAL EXAMINATION: VITAL SIGNS: Temperature 98 and T-max yesterday was higher with a blood pressure of 102/60, respiratory rate of 19, heart rate of 104. HEENT: Examination of HEENT is unremarkable. NECK: Supple. LUNGS: Have decreased breath sounds. HEART: Normal S1 and S2. ABDOMEN: Soft, nontender. No organomegaly. No rebound. No guarding. No masses. LABORATORY DATA: Laboratory examination reveals a white count of 5.5, hemoglobin of 12, platelets of 57. Chemistries reveals a BUN of 27, creatinine of 1. Procalcitonin is pending. Cultures are pending. Review of orders reveals the patient to be on vancomycin and meropenem and also the urinalysis is negative. ASSESSMENT AND PLAN: A 63-year-old female who was seen early this morning in room 260, bed 2, comfortable. Yesterday, the patient has had code sepsis with severe sepsis due to a healthcare-associated pneumonia in a patient with non-small cell lung cancer stage IV, metastases to the bone. Currently on vancomycin and meropenem day #2. Awaiting for repeat pancultures blood, urine, sputum and procalcitonin and we will make further recommendations. Long-term prognosis poor for this patient. Serge Kruse MD
--- NOTE | 2018-05-28 13:31 | PN ---
DATE: 05/28/2018 This is an addendum to initial progress note dictated by nurse practitioner, Jazmine Strickland. The patient's chart reviewed. The patient had echo a year ago in 01/2017 and that shows preserved LV function, trace MR, trace TR. The patient's heart rate is well controlled on verapamil, now he is in sinus tachycardia. We will repeat another echo to rule out any structural heart disease. TSH came back at 0.16. We will follow with you. Thank you for providing us the opportunity in taking care of the patient, Nicol Brannon. Chica Simon MD MTDD
--- NOTE | 2018-05-28 17:51 | PN ---
DATE: 05/28/2018 PULMONARY PROGRESS NOTE REFERRING PHYSICIAN: Yaneth Darby MD SUBJECTIVE: She is lying in the bed, head at 45 degrees. Feels much better than yesterday. Decreased shortness of breath, mild cough. No nausea, no vomiting, no diarrhea. No leg pain or leg swelling. OBJECTIVE: GENERAL: In no acute distress. VITAL SIGNS: Temperature is 98, heart rate is 104, respiratory rate is 20, blood pressure 102/67, pulse ox 100% on nasal cannula. HEENT: Moist mucous membrane. Crowded airway. NECK: Supple. No JVD. LUNGS: Few crackles at the bases, scattered rhonchi. HEART: S1 and S2. ABDOMEN: Soft, nontender. No organomegaly. EXTREMITIES: No edema. NEUROLOGIC: Awake, alert, and follow simple commands. MEDICATIONS: She is on Mucomyst 20% inhaled twice a day, Brovana inhaled twice a day, Calan 40 mg three times a day, vitamin D 50,000 units weekly, folic acid 1 mg daily, potassium 20 mEq daily, Keppra 500 mg twice a day, Lasix 20 mg daily, Lovenox 60 mg twice a day, Amitiza 24 mcg twice a day, meropenem 1 g IV every 8 hours, Namenda 10 mg at bedtime, Protonix 40 mg daily, Pulmicort inhaled twice a day, Solu-Medrol 20 mg every 12 hours, vancomycin 1 g IV daily, 2.5 mg every 6 hours p.r.n., Xopenex inhaled on p.r.n. basis. LABORATORY DATA: Shows hemoglobin 12.5 yesterday, hematocrit 36.6. Microbiology, so far blood culture and central line culture are all negative. Chest x-ray done this morning shows interstitial pneumonitis, possibly heart failure versus pneumonia. IMPRESSION AND PLAN: Aspiration pneumonia, sepsis, chronic lung disease, non-small cell lung cancer with metastatic disease to bone and brain, history of craniotomy, resection of tumor in the past, active smoker, had a rapid response yesterday, resuscitated with fluid, so need to assure she does not have oropharyngeal dysphagia, get speech therapy to evaluate her. Keep head elevated at 45 degrees, close watch while eating, get proBNP and procalcitonin for the morning, continue antibiotics, bronchodilators. Thank you and we will follow with you. Chica Palmer MD
--- NOTE | 2018-05-28 19:04 | CT ---
PROCEDURE: CT Chest with contrast (Pulmonary Angiogram) HISTORY: r/o PE COMPARISON: Comparison made with CTA chest 05/20/2018. TECHNIQUE: Axial computed tomography images were obtained of the chest in the pulmonary arterial phase of enhancement. Coronal and sagittal reformatted images were created and reviewed. Intravenous contrast dose: 145 cc Omnipaque 350 Radiation dose: Total exam DLP = 1049.43 mGy-cm. This CT exam was performed using one or more of the following dose reduction techniques: Automated exposure control, adjustment of the mA and/or kV according to patient size, and/or use of iterative reconstruction technique. FINDINGS: PULMONARY ARTERIES: Visualized pulmonary trunk, right and left main, lobar and segmental branches of the pulmonary arteries are well opacified the with no definitive filling defects seen to suggest acute central pulmonary embolus. The distal pulmonary emboli are poorly delineated. Pulmonary trunk measures 2.5 cm. AORTA: No acute findings. No thoracic aortic aneurysm. Ascending thoracic aorta measures 2.66 and descending thoracic aorta measures 2.4 cm LUNGS: Interval development of diffuse bilateral interstitial and alveolar-type infiltrates in the predominately affecting the upper and to a lesser degree lower lung zones, . . These findings could represent superimposed pulmonary edema/CHF with underlying interstitial pneumonitis. Extensive underlying centrilobular and panlobular emphysematous changes upper lobe predominance. Numerous some predominant peripherally along which were seen nodular opacities that were seen in the left lacey thorax are partially obscured by the aforementioned infiltrates with the exception of the basilar densities PLEURAL SPACES: Interval development of a small layering left-sided effusion HEART: Heart size normal. No significant pericardial effusion. LYMPH NODES: There is ill-defined soft tissue in the sub carinal region possibly representing a conglomeration of several adjacent lymph nodes. Multiple small mediastinal lymph nodes seen in the pretracheal and paratracheal regions bilaterally. There also appears to be prevascular lymphadenopathy. BONES, CHEST WALL: Unremarkable. No fracture or destructive lesion OTHER FINDINGS: Unremarkable. Liver exhibits normal size. Mild diffuse fatty hepatic infiltration. No obvious hepatic mass or collection. Portal and splenic veins are opacified. Gallbladder is physiologically distended. No evidence of intraluminal gallbladder calculi. Pancreas is slightly atrophic. No pancreatic mass collection or calcification. Spleen is unremarkable. No adrenal lesions. Kidneys demonstrate symmetric nephrograms. No evidence of nephrolithiasis or hydronephrosis. Urinary bladder is physiologically distended. No evidence of intraluminal urinary bladder calculi. No evidence of abdominal aortic aneurysm. Note again made of central low attenuation throughout the length of most of the IVC which could be consistent with partial thrombosis. Clinical correlation recommended. . . Evaluation of the bowel is somewhat limited the due to the lack of oral contrast material. Stomach is distended with food debris liquid and air. Visualized loops of small bowel exhibit normal contour and caliber. No evidence of acute mechanical small bowel obstruction There is a large amount of stool within the rectosigmoid consistent with fecal retention/constipation. Lesser amount of stool seen throughout the remaining large bowel. Incidental note made of infiltration changes and air within the subcutaneous tissues overlying the left lower anterior abdominal wall. Clinical correlation recommended. IMPRESSION: Interval development of interstitial and alveolar-type infiltrates predominate within the upper lung chapman in a somewhat batwing configuration. Findings may represent new well on pulmonary edema/CHF superimposed on interstitial disease and emphysema. . Significant centrilobular and panlobular emphysematous changes upper lobe predominance. Multiple varying sized peripherally located nodular opacities throughout the left lacey thorax. Interval development left-sided small effusion. Partial thrombosis within the IVC. Findings consistent with constipation. Mild fatty hepatic infiltration.
--- NOTE | 2018-05-29 02:15 | PN ---
DATE: 05/28/2018 SUBJECTIVE: Patient is a 63-year-old female. Patient was seen and examined at the bedside, looking comfortable. No nausea, vomiting or diarrhea. No hematuria or hematochezia. No swelling of the leg. No chest pain. No palpitation. No headache, no dizziness. Patient is not a good historian. PHYSICAL EXAMINATION: VITAL SIGNS: Temperature is 98, heart rate 104, respirations 20, blood pressure 102/67, pulse oximetry 100% on nasal cannula. HEENT: Head: Normocephalic, atraumatic. Eyes: PERRLA. Extraocular muscles intact. Conjunctivae clear. Nose: Patent. Mucous membrane moist. NECK: Supple. No carotid bruit. No JVD or thyromegaly. CHEST: Bilaterally symmetrical. HEART: S1 and S2 positive. LUNGS: Clear to auscultation. ABDOMEN: Soft, nontender. No organomegaly. EXTREMITIES: No edema. No cyanosis. NEUROLOGIC: Patient is awake and alert. Follows simple commands. MEDICATIONS: Mucomyst, Brovana, Calan, vitamin D, folic acid, potassium, Keppra, Lovenox, Amitiza, meropenem, Protonix, Pulmicort, Solu-Medrol, vancomycin, Xopenex. LABORATORY DATA: Hemoglobin 12.5, hematocrit 36.6. Blood cultures and cultures from the lines are negative. Chest x-ray shows interstitial pneumonitis, possibly heart failure versus pneumonia. ASSESSMENT AND PLAN: Ms. Nicol Brannon is a 63-year-old female with aspiration pneumonia; sepsis; chronic obstructive lung disease; non-small cell lung cancer with metastatic disease to the bone, brain; history of craniotomy; resection of the tumor of the brain in the past; active smoker; had rapid response yesterday; resuscitated with fluid; so need to assure that she does not have oropharyngeal dysphagia. Speech therapy evaluation needed. Close watch while eating. Appreciated Dr. Palmer's input. Oncology, Dr. Carranza is on the case; also ID, Dr. Kruse. Out of bed, physical therapy, gastrointestinal and deep venous thrombosis prophylaxis, repeat labs. We will follow. Yaneth Darby MD
[2018-05-29] MEDS: Meropenem IV 1 gm in NS 50 ML IVPB SCH ×3 (05:17→21:11)
[2018-05-29] MEDS: Enoxaparin 60 mg Syringe SC SCH ×2 (05:17→17:21)
[2018-05-29 06:56] LABS: BASO # 0.01 K/mm3 (0.0-2.0); BASO % 0.2 % (0.0-3.0); GRAN # 4.64 (1.4-6.5); GRAN % 93.4 % (50.0-68.0); HEMOGLOBIN 11.5 g/dL (12.0-16.0); LYMPH # 0.2 (1.2-3.4); LYMPH % 4.8 % (22.0-35.0); MEAN CELL VOLUME 98.3 fl (80.0-105.0); MEAN CORPUSCULAR HEMOGLOBIN 33.4 pg (25.0-35.0); MEAN PLATELET VOLUME 11.7 fl (7.0-11.0); MONO # 0.1 (0.1-0.6); MONO % 1.6 % (1.0-6.0); PLATELET COUNT 53 10^3/uL (120.0-450.0); RBC 3.44 10^6/uL (3.5-6.1); RED CELL DISTRIBUTION WIDTH 14.7 % (11.5-14.5)
[2018-05-29 07:16] LABS: B-TYPE NATRIURETIC PEPTIDE 436 pg/mL (0-450)
[2018-05-29 07:17] LABS: ALT/SGPT 44 U/L (7-56); AST/SGOT 47 U/L (14-36); BLOOD UREA NITROGEN 19 mg/dL (7-21); CALCIUM 10.3 mg/dL (8.4-10.5); GFR AFRICAN-AMERICAN > 60; GFR NON-AFRICAN AMERICAN > 60
[2018-05-29] MEDS: Acetylcysteine 20% Inhal Soln (4ml) INH SCH ×2 (07:48→20:04)
[2018-05-29] MEDS: Budesonide 0.5 mg/2 ml Inhal Susp UD IH SCH ×2 (07:49→20:04)
[2018-05-29] MEDS: Arformoterol 15 mcg/2 ml Inh Sol IH SCH (07:49)
--- NOTE | 2018-05-29 07:51 | CP.PCM.PN ---
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 History of COPD, current smoker,hypertension Seen and examined by me and Dr. Simon Objective - Vital Signs/Intake and Output Vital Signs (last 24 hours): Temp Pulse Resp BP Pulse Ox 98.2 F 119 H 19 119/87 98 05/29/18 06:00 05/29/18 06:00 05/29/18 06:00 05/29/18 06:00 05/29/18 06:00 Intake and Output: 05/29/18 05/29/18 06:59 18:59 Intake Total 230 Balance 230 - Medications Medications: Current Medications Acetylcysteine (Acetylcysteine 20%) 3 ml INH BIDRESP JACQUIE Last Admin: 05/28/18 19:38 Dose: 3 ml Arformoterol Tartrate (Brovana) 15 mcg IH [id number] JACQUIE Last Admin: 05/28/18 19:38 Dose: 15 mcg Budesonide (Pulmicort Respules) 0.5 mg IH [id number] JACQUIE Last Admin: 05/28/18 19:38 Dose: 0.5 mg Enoxaparin Sodium (Lovenox) 60 mg SC 0600,1800 JACQUIE PRN Reason: Protocol Last Admin: 05/29/18 05:17 Dose: 60 mg Ergocalciferol (Drisdol 50,000 Intl Units Cap) 1 cap PO Q7D JACQUIE Last Admin: 05/27/18 10:00 Dose: Not Given Folic Acid (Folic Acid) 1 mg PO DAILY JACQUIE Last Admin: 05/28/18 10:38 Dose: 1 mg Furosemide (Lasix) 20 mg PO DAILY [facility] Last Admin: 05/27/18 10:00 Dose: Not Given Meropenem (Merrem Iv 1 Gm Premix) 50 mls @ 100 mls/hr IVPB Q8 JACQUIE PRN Reason: Protocol Stop: 06/05/18 22:01 Last Admin: 05/29/18 05:17 Dose: 100 mls/hr Levalbuterol HCl (Xopenex) 0.63 mg IH [id number] PRN PRN Reason: Shortness of Breath Levetiracetam (Keppra) 500 mg PO Q12 [facility] Last Admin: 05/28/18 21:23 Dose: 500 mg Memantine (Namenda) 10 mg PO HS [facility] Last Admin: 05/28/18 21:23 Dose: 10 mg Methylprednisolone (Solu-Medrol) 20 mg IVP Q12 [facility] Last Admin: 05/28/18 21:23 Dose: 20 mg Non-Formulary Medication (Lubiprostone [Amitiza]) 24 mg PO BID [facility] Last Admin: 05/28/18 18:41 Dose: Not Given Pantoprazole Sodium (Protonix Ec Tab) 40 mg PO DAILY [facility] Last Admin: 05/28/18 10:37 Dose: 40 mg Potassium Chloride (K-Dur 20 Meq Er Tab) 20 meq PO DAILY [facility] Last Admin: 05/28/18 10:38 Dose: 20 meq Verapamil HCl (Calan Tab) 40 mg PO TID [facility] Last Admin: 05/28/18 18:57 Dose: 40 mg Verapamil HCl (Verapamil Inj) 2.5 mg IVP Q6H PRN PRN Reason: for heart rate >120 Last Admin: 05/28/18 23:32 Dose: 2.5 mg - Labs Labs: 05/29/18 06:30 05/29/18 06:30 PT 12.8 SECONDS (9.4-12.5) H 05/20/18 10:45 INR 1.11 (0.93-1.08) H 05/20/18 10:45 APTT 24.7 Seconds (25.1-36.5) L 05/20/18 10:45 - Constitutional Appears: No Acute Distress - Head Exam Head Exam: NORMOCEPHALIC - Eye Exam Eye Exam: Normal appearance - ENT Exam ENT Exam: Mucous Membranes Moist - Respiratory Exam Respiratory Exam: Decreased Breath Sounds, NORMAL BREATHING PATTERN Additional comments: nasal cannula - Cardiovascular Exam Cardiovascular Exam: +S1, +S2 Additional comments: right chest jose cath/accessed - GI/Abdominal Exam GI & Abdominal Exam: Soft, Normal Bowel Sounds - Extremities Exam Extremities Exam: Normal Capillary Refill - Neurological Exam Neurological Exam: Alert, Awake, Oriented x3 - Psychiatric Exam Psychiatric exam: Normal Affect, Normal Mood - Skin Skin Exam: Intact, Normal Color, Warm Assessment and Plan - Assessment and Plan (Free Text) Assessment: A 63 year old female who came in to the ER due to shortness of breath. 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 History of COPD, current smoker,hypertension. 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 Plan: Heart rate tachycardia 110's /min On Verapamil 40 mg TID Will increase Verapamil to 80 mg TID Controlled blood pressure Swallowing evaluation done-moderate oral pharyngeal dysphagia recommended advance bite size with thin liquids Pulmonary and ID on consult Continue current medications Continue current treatment Will follow up Plan and treatment discussed with Dr. Simon
[2018-05-29 08:00] LABS: BAND 1 % (0-2); LYMPHOCYTE 8 % (22.0-35.0); NEUTROPHIL 91 % (50.0-70.0); NUCLEATED RED BLOOD CELL 1 %; PLATELET ESTIMATE LOW (NORMAL)
--- NOTE | 2018-05-29 08:29 | CP.PCM.PN ---
Objective - Vital Signs/Intake and Output Vital Signs (last 24 hours): Temp Pulse Resp BP Pulse Ox 98.2 F 119 H 19 119/87 98 05/29/18 06:00 05/29/18 06:00 05/29/18 06:00 05/29/18 06:00 05/29/18 06:00 Intake and Output: 05/29/18 05/29/18 06:59 18:59 Intake Total 230 Balance 230 - Medications Medications: Current Medications Acetylcysteine (Acetylcysteine 20%) 3 ml INH BIDRESP JACQUIE Last Admin: 05/29/18 07:48 Dose: 3 ml Arformoterol Tartrate (Brovana) 15 mcg IH [id number] JACQUIE Last Admin: 05/29/18 07:49 Dose: 15 mcg Budesonide (Pulmicort Respules) 0.5 mg IH [id number] [facility] Last Admin: 05/29/18 07:49 Dose: 0.5 mg Enoxaparin Sodium (Lovenox) 60 mg SC 0600,1800 JACQUIE PRN Reason: Protocol Last Admin: 05/29/18 05:17 Dose: 60 mg Ergocalciferol (Drisdol 50,000 Intl Units Cap) 1 cap PO Q7D [facility] Last Admin: 05/27/18 10:00 Dose: Not Given Folic Acid (Folic Acid) 1 mg PO DAILY [facility] Last Admin: 05/28/18 10:38 Dose: 1 mg Furosemide (Lasix) 20 mg PO DAILY [facility] Last Admin: 05/27/18 10:00 Dose: Not Given Meropenem (Merrem Iv 1 Gm Premix) 50 mls @ 100 mls/hr IVPB Q8 [facility] PRN Reason: Protocol Stop: 06/05/18 22:01 Last Admin: 05/29/18 05:17 Dose: 100 mls/hr Levalbuterol HCl (Xopenex) 0.63 mg IH [id number] PRN PRN Reason: Shortness of Breath Levetiracetam (Keppra) 500 mg PO Q12 [facility] Last Admin: 05/28/18 21:23 Dose: 500 mg Memantine (Namenda) 10 mg PO HS [facility] Last Admin: 05/28/18 21:23 Dose: 10 mg Methylprednisolone (Solu-Medrol) 20 mg IVP Q12 [facility] Last Admin: 05/28/18 21:23 Dose: 20 mg Non-Formulary Medication (Lubiprostone [Amitiza]) 24 mg PO BID [facility] Last Admin: 05/28/18 18:41 Dose: Not Given Pantoprazole Sodium (Protonix Ec Tab) 40 mg PO DAILY [facility] Last Admin: 05/28/18 10:37 Dose: 40 mg Potassium Chloride (K-Dur 20 Meq Er Tab) 20 meq PO DAILY [facility] Last Admin: 05/28/18 10:38 Dose: 20 meq Verapamil HCl (Calan Tab) 40 mg PO TID [facility] Last Admin: 05/28/18 18:57 Dose: 40 mg Verapamil HCl (Verapamil Inj) 2.5 mg IVP Q6H PRN PRN Reason: for heart rate >120 Last Admin: 05/28/18 23:32 Dose: 2.5 mg - Labs Labs: 05/29/18 06:30 05/29/18 06:30 PT 12.8 SECONDS (9.4-12.5) H 05/20/18 10:45 INR 1.11 (0.93-1.08) H 05/20/18 10:45 APTT 24.7 Seconds (25.1-36.5) L 05/20/18 10:45
--- NOTE | 2018-05-29 08:58 | PN ---
DATE: 05/29/2018 SUBJECTIVE: The patient is in bed, was seen earlier today in room 260, bed 2. She was awake, responsive. No fevers. Uneventful night as per the nurse caring for the patient. OBJECTIVE: VITAL SIGNS: On exam, temperature is 98.3, blood pressure is 100/70, respiratory rate of 18, heart rate of 120. HEENT: Examination is unremarkable. NECK: Supple. LUNGS: Have decreased breath sounds. HEART: Normal S1, S2. ABDOMEN: Soft, nontender. DATA: Laboratory examination reveals a white count of 5.5, hemoglobin of 12.5, platelets of 57. Chemistries reveals the patient has a BUN of 27, creatinine of 1. Procalcitonin of 0.12 from the 05/27/2018, and it was 0.05. Urinalysis is noted. Serology reveals urine for Legionella antigen is negative. Blood cultures are negative. Urine cultures are negative and Dr. Darby's note is reviewed. The patient had a CAT scan of the chest and abdomen yesterday. diffuse interstitial bilateral disease, alveolar type infiltrate, constipation and fatty infiltration.. Dr. Palmer's note is reviewed. ASSESSMENT AND PLAN: This is a 63-year-old female who was seen earlier this morning room 260, bed 2, had a code sepsis with severe sepsis due to healthcare-associated pneumonia in a patient with non-small cell lung cancer with metastases to the bone, on vancomycin and meropenem day #3 with a normal procalcitonin. Negative blood cultures and we will discontinue the vancomycin and most likely, we will discontinue the meropenem within the next 24 hours if full cultures remain negative. Serge Kruse MD
[2018-05-29] MEDS: MethylPREDNISolone 40 mg Vial IVP SCH ×3 (10:17→21:53)
[2018-05-29] MEDS: Pantoprazole 40 mg EC Tab PO SCH (10:18)
[2018-05-29] MEDS: Potassium Chloride 20 mEq ER Tab PO SCH (10:18)
[2018-05-29] MEDS: LUBIPROSTONE 24 MG PO SCH ×2 (10:19→17:03)
--- NOTE | 2018-05-29 14:48 | CARD ---
APPROVED REPORT EXAM: Two-dimensional and M-mode echocardiogram with Doppler and color Doppler. INDICATION Abnormal EKG/Arrhythmia LVFX 2D DIMENSIONS Left Atrium (2D)3.0 (1.6-4.0cm)IVSd0.9 (0.7-1.1cm) LVDd2.9 (3.9-5.9cm)PWd0.9 (0.7-1.1cm) LVDs2.0 (2.5-4.0cm)FS (%) 31.0 % LVEF (%)60.4 (>50%) M-Mode DIMENSIONS Aortic Root2.80 (2.2-3.7cm)Aortic Cusp Exc.1.60 (1.5-2.0cm) Aortic Valve AoV Peak Zsxbmors172.0cm/Daniella Peak GR.11mmHg Mitral Valve MV E Xaaeeziv17.0cm/sMV A Seqhpjvc719.0cm/sE/A ratio0.4 TDI Lateral E' Peak V9.85cm/sMedial E' Peak V7.70cm/sE/Lateral E'4.6 E/Medial E'5.8 Pulmonary Valve PV Peak Rpdihuyd33.3cm/sPV Peak Grad.4mmHg Tricuspid Valve TR Peak Yberxrza881xw/sRAP [id number] Peak Gr.35mmHg [id number] LEFT VENTRICLE The left ventricle is normal size. There is normal left ventricular wall thickness. The left ventricular function is normal.EF-60-65% There is normal LV segmental wall motion. Transmitral Doppler flow pattern is Grade III-reversible restrictive diastolic dysfunction. No left ventricle thrombus noted on this study. There is no ventricular septal defect visualized. There is no left ventricular aneurysm. There is no mass noted in the left ventricle. RIGHT VENTRICLE The right ventricle is normal size. There is normal right ventricular wall thickness. The right ventricular systolic function is normal. ATRIA The left atrium size is normal. The right atrium size is normal. The interatrial septum is intact with no evidence for an atrial septal defect. AORTIC VALVE The aortic valve is thickened but opens well. No aortic regurgitation is present. There is no aortic valvular stenosis. There is no aortic valvular vegetation. MITRAL VALVE The mitral valve is thickened but opens well. Mitral regurgitation is trace. There is no mitral valve stenosis. There is no evidence of mitral valve prolapse. TRICUSPID VALVE The tricuspid valve leaflets are thickened , but open well. There is mild tricuspid regurgitation.RVSP-45 mmof hg. There is no tricuspid valve stenosis. There is no tricuspid valve prolapse or vegetation. PULMONIC VALVE The pulmonic valve is borderline thickened. There is trace pulmonic valvular regurgitation. There is no pulmonic valvular stenosis. GREAT VESSELS The aortic root is normal in size. The ascending aorta is normal in size. The pulmonary artery is normal. The IVC is normal in size and collapses >50% with inspiration. PERICARDIAL EFFUSION There is no pleural effusion. There is no pericardial effusion. <Conclusion> The left ventricle is normal size. There is normal left ventricular wall thickness. The left ventricular function is normal.EF-60-65% Mitral regurgitation is trace. There is mild tricuspid regurgitation.RVSP-45 mmof hg. The IVC is normal in size and collapses >50% with inspiration. There is no pericardial effusion. No vegetation or thrombus noted.
[2018-05-29] MEDS: Nystatin 100,000 Units/ml Oral Susp 5 ml UD PO SCH ×2 (17:21→21:13)
--- NOTE | 2018-05-29 18:32 | PN ---
DATE: 05/29/2018 PULMONARY PROGRESS NOTE REFERRING PHYSICIAN: Yaneth Darby MD. SUBJECTIVE: She is lying in the bed, head at 45 degrees. Night was unremarkable. Overall, feels better, still tachycardic. No nausea, no vomiting, no diarrhea. No leg pain or leg swelling. PHYSICAL EXAMINATION: GENERAL: In no acute distress. VITAL SIGNS: Temperature is 98, heart rate is 109, respiratory rate is 20, blood pressure 110/81, pulse ox 98% on nasal cannula. HEENT: Moist mucous membrane. Crowded airway. NECK: Supple. No JVD. LUNGS: Have a few crackles at bases. Scattered rhonchi. HEART: S1 and S2. Tachycardic. ABDOMEN: Soft, nontender, no organomegaly. EXTREMITIES: There is no edema. NEUROLOGIC: Awake, alert, and follows simple command. MEDICATIONS: She is on Mucomyst 3 mL inhaled twice a day, Brovana inhaled twice a day, Calan 20 mg three times a day, vitamin D one capsule every 7 days, folic acid 1 mg daily, potassium 20 mEq daily, Keppra 500 mg twice a day, Lasix 20 mg daily, Lovenox 60 mg twice a day, Amitiza 24 mcg twice a day, meropenem 1 g IV every 8 hours, Namenda 10 mg daily, nystatin 5 mL four times a day, Protonix 40 mg daily, Pulmicort inhaled twice a day, Solu-Medrol 20 mg jeff 12 hours, verapamil 2.5 mg every 6 hours p.r.n., Xopenex p.r.n. basis. LABORATORY DATA: Shows hemoglobin 11.5, hematocrit 33.8, WBC 5, platelet count is 78. Sodium 139, potassium 4.2, chloride 108, bicarbonate 20, BUN 19, creatinine 0.9, glucose 106, calcium is 10.3, phosphorus 2.6, magnesium 2. AST 47, ALT 44, alkaline phosphatase is 77. Albumin is 3.2, procalcitonin 0.38. Microbiology: Blood culture done on 05/27/2018, so far there is no growth. Urine also is unremarkable. Had an echocardiogram done today which shows RV systolic pressure is 45, left ventricle ejection fraction 60-65, mild tricuspid regurgitation. Had a CTA of the chest done which shows no pulmonary embolism but does have bilateral infiltrate, probably not heart failure. IMPRESSION AND PLAN: Status post aspiration pneumonia, sepsis with chronic lung disease, [id number] lung cancer with metastatic disease involving brain and bone, history of craniectomy in the past, resection of tumor, active smoker, continued to be tachycardic, being treated for sepsis. Pulmonary embolism has been ruled out. Does have a deep venous thrombosis, on anticoagulation. We will discontinue inhaled bronchodilator [id number] that could be contributing to the tachycardia. Also, concern is oropharyngeal dysphagia, aspiration precaution. Follow up labs in the morning. Thank you and we will follow with you. Chica Palmer MD
[2018-05-29] MEDS: Levalbuterol 0.63 MG/3 ML Inhal Soln UD IH PRN (20:04)
--- NOTE | 2018-05-30 03:11 | PN ---
DATE: 05/29/2018 SUBJECTIVE: Patient is a 63-year-old female. Patient was seen and examined at the bedside on 05/29/2018, looking comfortable. Night was unremarkable. Feels better. Still tachycardic. No nausea, vomiting or diarrhea. No hematuria or hematochezia. No swelling of the leg. No chest pain. No palpitation. PHYSICAL EXAMINATION: VITAL SIGNS: Temperature 98, heart rate 109, respirations 20, blood pressure 110/81, pulse oximetry 98% on nasal cannula. HEENT: Head: Normocephalic, atraumatic. Eyes: PERRLA. Extraocular muscles intact. Conjunctivae clear. Nose: Patent. Mucous membrane moist. NECK: Supple. No carotid bruit. No JVD or thyromegaly. CHEST: Bilaterally symmetrical. HEART: S1 and S2 positive. LUNGS: Clear to auscultation. ABDOMEN: Soft, bowel sounds positive. No organomegaly. EXTREMITIES: No edema. No cyanosis. NEUROLOGIC: Patient is awake and alert. Follows simple commands. MEDICATIONS: Mucomyst, Brovana, Calan, vitamin D, folic acid, potassium, Keppra, Lasix, Lovenox, Amitiza, meropenem, Namenda, Nystatin, Protonix, Pulmicort, Solu-Medrol tapering doses, verapamil, Xopenex. LABORATORY DATA: Hemoglobin 11.5, hematocrit 33.8, white blood cells 5. Platelets 78. Sodium 139, potassium 4.2, BUN 19, creatinine 0.9. AST 47, ALT 44. ASSESSMENT AND PLAN: Ms. Nicol Brannon is 63-year-old female with non-small cell lung cancer with metastasis involving the brain and bone, status post craniotomy in the past for the resection of the tumor, status post aspiration pneumonia, sepsis with chronic lung disease, active smoker; having tachycardia, being treated for sepsis by Infectious Disease. Pulmonary embolism has been ruled out. Does have deep vein thrombosis, on anticoagulation. Dr. Palmer discontinued inhaled bronchodilators, monitored around the clock and could be contributing to tachycardia. Rule out oropharyngeal dysphagia, aspiration precautions. Appreciated Dr. Palmer's input and Dr. Simon's input. CAT scan of the chest, abdomen and pelvis appreciated. Gastrointestinal and deep venous thrombosis prophylaxis. Repeat labs. We will follow. Yaneht Darby MD [facility] # [id number]
[2018-05-30] MEDS: Meropenem IV 1 gm in NS 50 ML IVPB SCH (05:16)
[2018-05-30] MEDS: Enoxaparin 60 mg Syringe SC SCH ×2 (05:17→18:50)
[2018-05-30 06:27] LABS: BASO # 0.01 K/mm3 (0.0-2.0); BASO % 0.2 % (0.0-3.0); GRAN # 4.63 (1.4-6.5); GRAN % 89.2 % (50.0-68.0); HEMOGLOBIN 11.6 g/dL (12.0-16.0); LYMPH # 0.4 (1.2-3.4); LYMPH % 8.5 % (22.0-35.0); MEAN CELL VOLUME 98.2 fl (80.0-105.0); MEAN CORPUSCULAR HEMOGLOBIN 34.2 pg (25.0-35.0); MEAN CORPUSCULAR HGB CONC 34.8 g/dl (31.0-37.0); MEAN PLATELET VOLUME 12.5 fl (7.0-11.0); MONO # 0.1 (0.1-0.6); MONO % 2.1 % (1.0-6.0); RBC 3.39 10^6/uL (3.5-6.1); RED CELL DISTRIBUTION WIDTH 14.6 % (11.5-14.5); WHITE BLOOD COUNT 5.2 10^3/ul (4.5-11.0)
--- NOTE | 2018-05-30 06:45 | CP.PCM.PN ---
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 History of COPD, current smoker,hypertension Seen and examined by me and Dr. Fang Objective - Vital Signs/Intake and Output Vital Signs (last 24 hours): Temp Pulse Resp BP Pulse Ox 97.9 F 99 H 20 102/67 95 05/30/18 00:01 05/30/18 04:28 05/30/18 00:01 05/30/18 00:01 05/30/18 00:01 Intake and Output: 05/29/18 05/30/18 18:59 06:59 Intake Total 120 340 Balance 120 340 - Medications Medications: Current Medications Acetylcysteine (Acetylcysteine 20%) 3 ml INH BIDRESP [facility] Last Admin: 05/29/18 20:04 Dose: 3 ml Budesonide (Pulmicort Respules) 0.5 mg IH [id number] [facility] Last Admin: 05/29/18 20:04 Dose: 0.5 mg Enoxaparin Sodium (Lovenox) 60 mg SC 0600,1800 JACQUIE PRN Reason: Protocol Last Admin: 05/30/18 05:17 Dose: 60 mg Ergocalciferol (Drisdol 50,000 Intl Units Cap) 1 cap PO Q7D [facility] Last Admin: 05/27/18 10:00 Dose: Not Given Folic Acid (Folic Acid) 1 mg PO DAILY [facility] Last Admin: 05/29/18 10:18 Dose: 1 mg Furosemide (Lasix) 20 mg PO DAILY [facility] Last Admin: 05/27/18 10:00 Dose: Not Given Meropenem (Merrem Iv 1 Gm Premix) 50 mls @ 100 mls/hr IVPB Q8 JACQUIE PRN Reason: Protocol Stop: 06/05/18 22:01 Last Admin: 05/30/18 05:16 Dose: 100 mls/hr Levalbuterol HCl (Xopenex) 0.63 mg IH [id number] PRN PRN Reason: Shortness of Breath Last Admin: 05/29/18 20:04 Dose: 0.63 mg Levetiracetam (Keppra) 500 mg PO Q12 [facility] Last Admin: 05/29/18 21:13 Dose: 500 mg Memantine (Namenda) 10 mg PO HS [facility] Last Admin: 05/29/18 21:13 Dose: 10 mg Methylprednisolone (Solu-Medrol) 10 mg IVP Q12 [facility] Last Admin: 05/29/18 21:53 Dose: Not Given Non-Formulary Medication (Lubiprostone [Amitiza]) 24 mg PO BID [facility] Last Admin: 05/29/18 17:03 Dose: Not Given Nystatin (Nystatin Oral Susp) 5 ml PO QID [facility] Last Admin: 05/29/18 21:13 Dose: 5 ml Pantoprazole Sodium (Protonix Ec Tab) 40 mg PO DAILY [facility] Last Admin: 05/29/18 10:18 Dose: 40 mg Potassium Chloride (K-Dur 20 Meq Er Tab) 20 meq PO DAILY [facility] Last Admin: 05/29/18 10:18 Dose: 20 meq Verapamil HCl (Verapamil Inj) 2.5 mg IVP Q6H PRN PRN Reason: for heart rate >120 Last Admin: 05/28/18 23:32 Dose: 2.5 mg Verapamil HCl (Calan Tab) 80 mg PO TID [facility] Last Admin: 05/29/18 17:21 Dose: 80 mg - Labs Labs: 05/29/18 06:30 05/29/18 06:30 PT 12.8 SECONDS (9.4-12.5) H 05/20/18 10:45 INR 1.11 (0.93-1.08) H 05/20/18 10:45 APTT 24.7 Seconds (25.1-36.5) L 05/20/18 10:45 - Constitutional Appears: No Acute Distress - Head Exam Head Exam: NORMOCEPHALIC - Eye Exam Eye Exam: Normal appearance - ENT Exam ENT Exam: Mucous Membranes Moist - Respiratory Exam Respiratory Exam: Decreased Breath Sounds, NORMAL BREATHING PATTERN - Cardiovascular Exam Cardiovascular Exam: REGULAR RHYTHM, +S1, +S2 Additional comments: telemetry,NSR-90's right chest port/accessed - GI/Abdominal Exam GI & Abdominal Exam: Soft, Normal Bowel Sounds - Extremities Exam Extremities Exam: Normal Capillary Refill - Neurological Exam Neurological Exam: Alert, Awake, Oriented x3 - Psychiatric Exam Psychiatric exam: Normal Affect, Normal Mood - Skin Skin Exam: Intact, Normal Color, Warm Assessment and Plan - Assessment and Plan (Free Text) Assessment: A 63 year old female who came in to the ER due to shortness of breath. 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 History of COPD, current smoker,hypertension. 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 Plan: Cardiac status stable Heart rate controlled to NSR 90's after increasing Verapamil dose Controlled blood pressure Swallowing evaluation done-moderate oral pharyngeal dysphagia recommended advance bite size with thin liquids Pulmonary and ID on consult Discharge planning Continue current medications Continue current treatment Will follow up Plan and treatment discussed with Dr. Fang
[2018-05-30 07:09] LABS: B-TYPE NATRIURETIC PEPTIDE 287 pg/mL (0-450)
[2018-05-30 07:26] LABS: ALB/GLOB RATIO 0.9 (1.1-1.8); ALBUMIN 3.2 g/dL (3.0-4.8); ALT/SGPT 35 U/L (7-56); AST/SGOT 56 U/L (14-36); BLOOD UREA NITROGEN 22 mg/dL (7-21); CALCIUM 10.5 mg/dL (8.4-10.5); GFR AFRICAN-AMERICAN > 60; GFR NON-AFRICAN AMERICAN > 60
[2018-05-30] MEDS: Acetylcysteine 20% Inhal Soln (4ml) INH SCH ×2 (07:39→21:00)
[2018-05-30] MEDS: Budesonide 0.5 mg/2 ml Inhal Susp UD IH SCH ×2 (07:39→21:00)
[2018-05-30] MEDS: Levalbuterol 0.63 MG/3 ML Inhal Soln UD IH PRN ×3 (07:40→21:00)
[2018-05-30] MEDS: Pantoprazole 40 mg EC Tab PO SCH (10:12)
[2018-05-30] MEDS: Potassium Chloride 20 mEq ER Tab PO SCH (10:12)
[2018-05-30] MEDS: Nystatin 100,000 Units/ml Oral Susp 5 ml UD PO SCH ×3 (10:12→18:50)
[2018-05-30] MEDS: MethylPREDNISolone 40 mg Vial IVP SCH ×2 (10:48→21:13)
[2018-05-30] MEDS: LUBIPROSTONE 24 MG PO SCH ×2 (14:44→18:46)
--- NOTE | 2018-05-30 18:50 | PN ---
DATE: 05/30/2018 PULMONARY PROGRESS NOTE REFERRING PHYSICIAN: Yaneth Darby MD. SUBJECTIVE: She is lying in the bed, head at 45 degrees. Family is at bedside. Overall feels better. Gets short of breath with exertion. No nausea, no vomiting, no diarrhea. No leg pain or leg swelling. PHYSICAL EXAMINATION: GENERAL: In no acute distress. VITAL SIGNS: Temperature is 98, heart rate is 70, respiratory rate is 18, blood pressure 123/82, pulse ox 95% on 3 liters nasal cannula. HEENT: Moist mucous membrane. Crowded airway. NECK: Supple. No JVD. LUNGS: Have a few scattered rhonchi. HEART: S1 and S2. ABDOMEN: Soft, nontender, no organomegaly. EXTREMITIES: There is no edema. NEUROLOGIC: Awake, alert, and follows simple command. MEDICATIONS: She is on Mucomyst inhaled twice a day, Calan 80 mg three times a day, vitamin D 50,000 units weekly, folic acid 1 mg daily, potassium 20 mEq daily, Keppra 500 mg twice a day, Lasix 20 mg daily, Lovenox 60 mg twice a day, Amitiza 24 mcg twice a day, Namenda 10 mg at bedtime, Protonix 40 mg daily, Pulmicort inhaled twice a day, Solu-Medrol 20 mg every 12 hours, Tenormin 12.5 mg daily, verapamil 2.5 mg every 6 hours p.r.n., Xopenex inhaled every 6 hours p.r.n. LABORATORY DATA: Shows hemoglobin 11.6, hematocrit 33.3, WBC 5.2, platelet count is 64. Sodium 139, potassium 4.3, chloride 106, bicarbonate 22, BUN 22, creatinine 0.9, glucose 114, calcium is 10.5. AST 56, ALT 35, alkaline phosphatase is 83. Albumin is 6.6. Procalcitonin is 0.29. Had echocardiogram done yesterday, shows normal LV wall thickening, ejection fraction is 60-65, right ventricular systolic pressure is 45. IMPRESSION AND PLAN: Status post aspiration pneumonia, sepsis, chronic lung disease, non-small cell lung cancer with metastatic disease involving brain and bone, history of craniectomy and resection of tumor, active smoker. Tachycardia is a little bit improved, now is about 100. Long-acting beta agonist was discontinued and also on beta-glenroy. Spoke to family at bedside. She will benefit from rehab facilities. Continue anticoagulation, fall precaution, antibiotics as per Infectious Diseases. Thank you and we will follow with you. Chica Palmer MD
--- NOTE | 2018-05-30 19:04 | PN ---
DATE: 05/30/2018 SUBJECTIVE: The patient is in bed, was seen early this morning in room 260, bed 2. No fevers, no chills. PHYSICAL EXAMINATION: VITAL SIGNS: Temperature is 98, blood pressure is 120/70, respiratory rate of 18. HEENT: Unremarkable. NECK: Supple. LUNGS: Decreased breath sounds. HEART: Normal S1, S2. ABDOMEN: Soft, nontender. No rebound or guarding. LABORATORY EXAMINATION: Reveals the patient's white count is 5.2, hemoglobin of 11, and platelets of 64. Chemistries reveals a BUN of 22 and creatinine of 0.9. Procalcitonin 0.12. Urinalysis is noted. Urine for Legionella antigen is negative. Microbiology reveals repeat blood cultures and urine cultures are negative. The patient has had poor negative procalcitonin. ASSESSMENT AND PLAN: A 63-year-old female seen earlier this morning with severe sepsis due to healthcare-associated pneumonia in a patient with non-small cell lung cancer with metastases to the bone. On vancomycin and meropenem, day #4. We will discontinue the meropenem and vancomycin was already discontinued. The patient is clinically doing well. The patient is also on Solu-Medrol. We will follow closely with you. Serge Kruse MD
--- NOTE | 2018-05-30 21:18 | PN ---
DATE: 05/30/2018 This is [facility] visit on the telemetry floor. For Dr. Carranza. 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 Darby by the emergency room for elevated temperatures with confusion, now being treated with modest improvement with IV antibiotics as per Dr. Kruse for sepsis related to pneumonia. At present, the nurse is reporting that the patient is being more alert this visit with appetite improved; however, she is still incontinent with her family members at the bedside. The patient was seen by Physiotherapy earlier today with the patient sitting up at the edge of the bed with a noticeable drop in her pulse oximetry with the physiotherapy being put on hold due to the change as per nursing. PHYSICAL EXAMINATION: VITAL SIGNS: Temperature 98.5, pulse of 100, respirations 18, blood pressure 123/82 with pulse ox of 95% resting in bed. HEENT: The patient has rai face with a scar across the top of her forehead status post craniotomy. Tongue is coated, being treated for oropharyngeal candidiasis. NECK: Supple. HEART: Tachy rate, regular rhythm. LUNGS: Rare rhonchi. ABDOMEN: Bilateral abdomen is soft, obese, nontender. EXTREMITIES: No edema. SKIN: Warm and dry. NEUROLOGIC: Patient answers questions slowly, but appropriately. LABORATORY DATA: The patient's labs were done. White blood cell count of 5.2, hemoglobin 11.6, hematocrit 33.3, platelet count 64,000. A manual platelet count was done 2 days prior at 78,000. Her chem metabolic panel was within normal limit except for BUN of 22 with normal creatinine of 0.9, AST of 56 with normal ALT of 35. The patient did have an echocardiogram done yesterday, it was read as left ventricle normal size with an ejection fraction of 60% to 65%. The patient did have a CT angiogram of the chest, abdomen and pelvis done on 05/28/2018 with the finding showing interstitial alveolar type infiltrate, predominantly upper chapman configuration findings represent a new CHF superimposed on interstitial disease and emphysema. She also has multiple size peripheral loculated nodular opacities in the left hemithorax left-sided small effusion. 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 Findings consistent with mild fatty hepatic infiltration. ASSESSMENT AND PLAN: Aspiration pneumonia, sepsis, chronic obstructive pulmonary disease, non-small cell cancer of the lung with stage IV metastatic disease involving the brain and bone, history of craniotomy, hypoxemia, history of deep vein thrombosis, oropharyngeal candidiasis, rai face secondary to IV steroids, chronic use; hypertension, hyperlipidemia. The plan for this patient after conversation with Dr. Carranza is to continue present medical regimen with eventual physiotherapy now and out of bed to the chair once the pulse ox is acceptable. We will continue to monitor clinically and with labs. The prognosis for this patient is guarded. This is a complex patient with a comprehensive medically necessary and appropriate visit carried out in excess of 20 minutes with the patient's family members at the bedside advised of the findings, prognosis and recommendations with questions answered to their satisfaction. Corbin Borrego MD
[2018-05-31] MEDS: Nystatin 100,000 Units/ml Oral Susp 5 ml UD PO SCH ×6 (04:42→22:15)
[2018-05-31] MEDS: Enoxaparin 60 mg Syringe SC SCH ×2 (05:20→17:47)
--- NOTE | 2018-05-31 05:32 | PN ---
DATE: 05/30/2018 SUBJECTIVE: Patient is 63 years old female. Patient is seen and examined at the bedside. Looking comfortable. No nausea, vomiting, or diarrhea. No hematuria or hematochezia. No swelling of the legs. No chest pain or palpitation. No headaches, no dizziness. Patient is a very poor historian. PHYSICAL EXAMINATION: VITAL SIGNS: Temperature 97.9, pulse of 99, respiratory rate 20, blood pressure 102/67, pulse oximetry of 95%. HEENT: Head: Normocephalic, atraumatic. Eyes: PERRLA. Extraocular muscles intact. Conjunctivae clear. Nose: Patent. Mucous membrane moist. NECK: Supple. No carotid bruit. No JVD or thyromegaly. CHEST: Bilaterally symmetrical. HEART: S1 and S2 positive. LUNGS: Poor air entry. ABDOMEN: Soft, bowel sounds positive. No organomegaly. EXTREMITIES: No edema. No cyanosis. NEUROLOGIC: Patient is awake and alert. Moving all four extremities. No focal deficits. MEDICATIONS: Acetylcysteine, Pulmicort, Lovenox, vitamin D, folic acid, Lasix, Merrem, Xopenex, Keppra, Namenda, Solu-Medrol tapering doses, potassium, verapamil. LABORATORY DATA: White blood cells 5, hemoglobin 11.5, hematocrit 33.8, platelets are decreased. Sodium 139, potassium 4.2, BUN 19, creatinine 0.9. Glucose 106. ASSESSMENT AND PLAN: Ms. Nicol Brannon is a 63 years old lady with multiple medical problems with history of anemia, hyperchloremia; came with shortness of breath, tachycardia currently in control, non-small cell carcinoma with metastatic disease to the brain, post craniotomy and chemotherapy, history of chronic obstructive pulmonary disease and history of smoking; hypertension. Patient is found have thrombosis in the inferior vena cava. Gastrointestinal and deep venous thrombosis prophylaxis. Repeat labs. Discussion done with all consultants . Yaneth Darby MD MTDD
[2018-05-31 07:20] LABS: BASO # 0.03 K/mm3 (0.0-2.0); BASO % 0.5 % (0.0-3.0); GRAN # 4.82 (1.4-6.5); GRAN % 82.1 % (50.0-68.0); HEMOGLOBIN 12.2 g/dL (12.0-16.0); LYMPH # 0.9 (1.2-3.4); LYMPH % 15.5 % (22.0-35.0); MEAN CELL VOLUME 98.1 fl (80.0-105.0); MEAN CORPUSCULAR HEMOGLOBIN 33.7 pg (25.0-35.0); MEAN CORPUSCULAR HGB CONC 34.4 g/dl (31.0-37.0); MEAN PLATELET VOLUME 12.7 fl (7.0-11.0); MONO # 0.1 (0.1-0.6); MONO % 1.9 % (1.0-6.0); RBC 3.62 10^6/uL (3.5-6.1); RED CELL DISTRIBUTION WIDTH 14.6 % (11.5-14.5); WHITE BLOOD COUNT 5.9 10^3/ul (4.5-11.0)
[2018-05-31] MEDS: Levalbuterol 0.63 MG/3 ML Inhal Soln UD IH PRN ×2 (07:56→18:10)
[2018-05-31] MEDS: Budesonide 0.5 mg/2 ml Inhal Susp UD IH SCH ×2 (07:56→19:44)
[2018-05-31] MEDS: Acetylcysteine 20% Inhal Soln (4ml) INH SCH ×2 (08:06→19:44)
--- NOTE | 2018-05-31 08:34 | PN ---
DATE: 05/31/2018 SUBJECTIVE: The patient is in bed, in no acute distress, was seen earlier this morning. No fevers and chills. PHYSICAL EXAMINATION: VITAL SIGNS: On exam, temperature is 98, blood pressure is 102/60, respiratory rate of 18. HEENT: Examination of HEENT is unremarkable. NECK: Supple. LUNGS: Have decreased breath sounds. HEART: Normal S1, S2. ABDOMEN: Soft, nontender. LABORATORY DATA: Laboratory examination reveals a white count of 5.2, hemoglobin of 11 and platelets of 64. Coagulation is noted and the gases are reviewed. Chemistries reveals the patient's BUN is 22, creatinine of 0.9, procalcitonin 0.26. Urinalysis is unremarkable and urine for Legionella antigen is negative. Repeat pancultures, blood cultures are no growth. Urine cultures are no growth. Review of the orders reveals the patient to be off of antibiotics. The patient is on Solu-Medrol. Dr. Darby's note is reviewed from yesterday. ASSESSMENT AND PLAN: A 63-year-old female who was seen earlier today, admitted with severe sepsis secondary to healthcare-associated pneumonia in a patient with non-small cell lung cancer, metastases to the brain and had craniotomy and had completed the antibiotic therapy of vancomycin, meropenem. Currently, off of antibiotics and the patient is at risk for developing nosocomial infections. Serge Kruse MD
[2018-05-31] MEDS: MethylPREDNISolone 40 mg Vial IVP SCH ×2 (09:28→21:47)
[2018-05-31] MEDS: Pantoprazole 40 mg EC Tab PO SCH (09:29)
[2018-05-31] MEDS: Potassium Chloride 20 mEq ER Tab PO SCH (09:29)
[2018-05-31] MEDS: LUBIPROSTONE 24 MG PO SCH ×2 (09:30→18:54)
--- NOTE | 2018-05-31 10:11 | PN ---
DATE: 05/31/2018 LOCATION: The patient is in room 260, bed 2. REASON FOR CONSULTATION AND FOLLOWUP: Tachycardia, history of non-small cell carcinoma with metastasis to the brain, post craniotomy, chemotherapy, history of COPD, hypertension. SUBJECTIVE: The patient lying flat in bed without any chest pain, shortness of breath, or palpitations. PHYSICAL EXAMINATION: VITAL SIGNS: Blood pressure is 102/69; respirations 18; pulse is 103, on the monitor, heart rate is 107, yesterday heart rate was above 120. NECK: JVP low. LUNGS: Clear. CARDIOVASCULAR: S1, S2. ABDOMEN: Soft. Nontender. No organomegaly. Bowel sounds normal. EXTREMITIES: No clubbing. No cyanosis. LABORATORY DATA: Labs shows WBC 5.2, hemoglobin 11.6, hematocrit 33.3, platelet count 64. Sodium 139, potassium 4.3, BUN 22, creatinine 0.9. Random glucose 114, AST 56, ALT 35. NT-proB natriuretic peptide 287. Total protein and albumin normal. DIAGNOSES: Sinus tachycardia, non-small cell carcinoma with metastasis to the brain, post craniotomy, chemotherapy, history of chronic obstructive pulmonary disease, history of hypertension, anemia, thrombocytopenia, history of thrombosis of inferior vena cava. PLAN: Yesterday, I gave her atenolol 12.5 mg and heart rate was above 120, which has come down to 107, so today I am going increase the atenolol to 25 mg daily. The patient is also on verapamil 80 mg t.i.d., furosemide 20 daily, potassium 20 mEq daily, folic acid 1 mg daily, Namenda 10 mg at bedtime, Protonix 40 daily, methylprednisolone 10 mg IV every 12 hours. We will follow with you. Chica Fang MD
--- NOTE | 2018-05-31 17:16 | PN ---
DATE: 05/31/2018 This is [facility] visit on the telemetry floor. For Dr. Carranza. SUBJECTIVE: The patient is a 63-year-old female seen lying in bed, resting without complaint, unable to participate in physiotherapy due to severe drop in her pulse oximetry upon sitting up yesterday with the patient known to suffer from metastatic non-small cell CA of the lung with metastasis to the brain, status post craniotomy. She was admitted for confusion with sepsis related to pneumonia, being treated with good effect. Otherwise, the patient is in no acute distress at this time, continuing with antibiotics as per Dr. Kruse with good effect. At present, she is off antibiotics, however, she is at risk for developing nosocomial infections as per Dr. Kruse. OBJECTIVE/PHYSICAL EXAMINATION: VITAL SIGNS: Temperature 98.5, pulse 124 with a repeat of 97, blood pressure 120/69, pulse ox of 88%, previous done was 95%. This is being evaluated as per Dr. Palmer and Dr. Fang, Cardiology. HEENT: The patient has rai face with linear scar across the top of her forehead, status post craniotomy. Tongue is coated. NECK: Supple. HEART: Tachy rate, regular rhythm. LUNGS: Occasional rhonchi. ABDOMEN: Obese, soft, nontender. EXTREMITIES: No edema. SKIN: Warm and dry. NEUROLOGIC: She is somnolent, but arousable. LABORATORY DATA: The patient's labs were done. White blood cell count of 5.9, hemoglobin 12.2, hematocrit 35.5, and platelet count of 65,000 with no active bleeding. The patient's chem metabolic panel was within normal range except for a BUN of 22, creatinine otherwise normal at 0.9 with an AST of 56, normal ALT of 35, otherwise normal chem metabolic panel. Procalcitonin value was noted to be 0.26. It should be noted that the patient's urine culture and blood cultures were negative after five days x2. ASSESSMENT: Pneumonia with sepsis, status post treatment, mental status change improved, sinus tachycardia, non-small cell cancer of the lung, stage IV with metastasis involving the brain and bone, history of craniotomy, hypoxemia, history of deep venous thrombosis, oropharyngeal candidiasis, rai face secondary to steroids, hypertension, hyperlipidemia, deconditioning, and thrombocytopenia. PLAN: The plan for this patient after conversation with Dr. Carranza is to continue present medical regimen with antiseizure prophylaxis with Keppra, Lovenox subcu, nystatin oral suspension, and IV steroids as per consultants and primary doctor. We will monitor clinically as indicated. The prognosis for this patient is guarded with consideration for transfer once she is stable for reconditioning. Corbin Borrego MD
--- NOTE | 2018-05-31 18:11 | PN ---
DATE: 05/31/2018 PULMONARY PROGRESS NOTE REFERRING PHYSICIAN: Yaneth Darby MD. SUBJECTIVE: The patient is lying in the bed, head at 45 degrees. Night was unremarkable. Yesterday when noted, she was ready to be discharged, found to have hypoxemia, given Lasix, was feeling better, but still short of breath. No hemoptysis. No hematemesis. No hematuria. No diarrhea reported . PHYSICAL EXAMINATION: GENERAL: In no acute distress. VITAL SIGNS: Temperature is 98, heart rate is 78, respiratory 16, blood pressure 96/67, pulse ox 88% on 3 L nasal cannula. HEENT: Moist mucous membrane. Crowded airway. Mallampati score is 4. NECK: Supple. No JVD. LUNGS: Have scattered rhonchi. HEART: S1 and S2. ABDOMEN: Soft, nontender. No organomegaly. EXTREMITIES: There is no edema. NEUROLOGICAL: Awake, alert, follows simple command. MEDICATIONS: She is on Mucomyst inhaled twice a day, Calan 80 mg three times a day, vitamin D 50,000 units weekly, folic acid 1 mg daily, potassium 20 mEq daily, Keppra 500 mg twice a day, Lasix 20 mg which is on hold today, Lovenox 60 mg every 12 hours, Amitiza 24 mg twice a day, Namenda 10 mg at bedtime, nystatin oral suspension four times daily, Protonix 40 mg daily, Pulmicort inhaled twice a day, Solu-Medrol 10 mg twice a day, Tenormin 25 mg daily, verapamil p.r.n., Xopenex inhale every 6 hours p.r.n. LABORATORY DATA: Shows hemoglobin 12.2, hematocrit 35.5, WBC 5.9, platelet count is 65. Sodium 139, potassium 4.3 from yesterday. BUN was 22, creatinine 0.9. Procalcitonin is unremarkable. Has echocardiogram done 2 days ago, which is showing right ventricular systolic pressure is 45, LV ejection fraction reported as 60-65. IMPRESSION AND PLAN: Status post aspiration pneumonia, sepsis, chronic lung disease, non-small cell lung cancer with metastatic disease involving the brain and bone, history of craniectomy with resection of tumor, pulmonary hypertension, persistent tachycardia and hypoxemia. CTA had been negative for pulmonary embolism. According to echocardiogram, has a pulmonary hypertension, but normal left ventricle. On small dose of steroids. Does have some oropharyngeal dysphagia. This may be component of sleep apnea syndrome. We will place her on bilevel positive airway pressure 09/06 with 30% oxygen while sleeping. Keep head at 45 degrees. We will try her on beta-glenroy instead of calcium channel glenroy. We will get cortisol level in the morning. Repeat chest x-ray. Thank you and we will follow with you. Chica Palmer MD
--- NOTE | 2018-06-01 01:38 | PN ---
DATE: 05/31/2018 SUBJECTIVE: Patient is 63-year-old female. Patient was seen and examined at the bedside. Looking comfortable. Night was unremarkable. Yesterday, the patient was ready for discharge, found to have hypoxemia, given Lasix, she was feeling better, but still getting shortness of breath once in a while. No hematochezia. No hematemesis. No hematuria. No diarrhea. PHYSICAL EXAMINATION: VITAL SIGNS: Temperature 98, heart rate 70, respiratory rate 16, blood pressure 96/67, pulse oximetry noted on 3 L nasal cannula. HEENT: Head: Normocephalic, atraumatic. Eyes: PERRLA. Extraocular muscles intact. Conjunctivae clear. Nose: Patent. Mucous membrane moist. NECK: Supple. No carotid bruit. No JVD or thyromegaly. CHEST: Bilaterally symmetrical. HEART: S1 and S2 positive. LUNGS: Clear to auscultation. ABDOMEN: Soft, bowel sounds positive. No organomegaly. EXTREMITIES: No edema. No cyanosis. NEUROLOGIC: Patient is awake and alert. Follows simple commands. MEDICATIONS: Mucomyst, Calan, vitamin D, folic acid, potassium, Keppra, Lasix, Lovenox, Amitiza, Namenda, nystatin oral suspension, Protonix, Solu-Medrol, Tenormin, verapamil, Xopenex. LABORATORY DATA: Hemoglobin 12.2, hematocrit 35.5, white blood cells 5.9, platelets 65. Sodium 139, potassium 4.3, BUN 22, creatinine 0.9. ASSESSMENT AND PLAN: Ms. Clovis Camarena is a 63-year-old lady, status post aspiration pneumonia, sepsis, chronic lung disease, non-small cell lung cancer with metastasis involving the brain and bone, history of craniotomy with resection of the tumor, pulmonary hypertension, persistent tachycardia, hypoxia, having episode of hypotension. Negative for pulmonary emboli. Echocardiograph appreciated, on small doses of steroids, has oral candidiasis, oropharyngeal dysphagia, maybe has sleep apnea syndrome. We will put the patient on bilevel positive airway pressure with 30% oxygen. Gastrointestinal and deep venous thrombosis prophylaxis. Repeat labs. We will follow up. Length of time discussion done with patient's daughter. She was quite upset, did not want mother to go to rehab. Hold discharge. Discussion done with patient's nursing staff. The patient did not have bowel movement. From today, Luisalax was just given and we will follow. Yaneth Darby MD MTDD
[2018-06-01] MEDS ORDERED: Sodium Chloride 0.9% 500 ML IV STA ×2 (05:30→06:00)
[2018-06-01] MEDS ORDERED: Sodium Chloride 0.9% 1,000 ML IV STA ×2 (06:43→10:15)
[2018-06-01 06:53] LABS: ARTERIAL BLOOD GAS HCO3 16.5 mmol/L (21-28); ARTERIAL BLOOD GAS O2 SAT 99.9 % (95-98); ARTERIAL BLOOD GAS PCO2 26 mm/Hg (35-45); ARTERIAL BLOOD GAS PH 7.41 (7.35-7.45); ARTERIAL BLOOD GAS TCO2 17.3 mmol.L (22-28)
[2018-06-01 06:59] LABS: BASO # 0.04 K/mm3 (0.0-2.0); BASO % 0.7 % (0.0-3.0); GRAN # 4.9 (1.4-6.5); GRAN % 82.6 % (50.0-68.0); HEMOGLOBIN 11.4 g/dL (12.0-16.0); LYMPH # 0.9 (1.2-3.4); LYMPH % 14.7 % (22.0-35.0); MEAN CELL VOLUME 100.9 fl (80.0-105.0); MEAN CORPUSCULAR HEMOGLOBIN 33.5 pg (25.0-35.0); MEAN CORPUSCULAR HGB CONC 33.2 g/dl (31.0-37.0); MEAN PLATELET VOLUME 12.6 fl (7.0-11.0); MONO # 0.1 (0.1-0.6); RBC 3.4 10^6/uL (3.5-6.1); WHITE BLOOD COUNT 5.9 10^3/ul (4.5-11.0)
[2018-06-01 07:11] LABS: BLOOD UREA NITROGEN 53 mg/dL (7-21); CALCIUM 9.4 mg/dL (8.4-10.5); GFR AFRICAN-AMERICAN 55; GFR NON-AFRICAN AMERICAN 46
[2018-06-01 07:15] LABS: TROPONIN I 0.01 ng/mL
--- NOTE | 2018-06-01 07:27 | CP.PCM.PN ---
Subjective - Date & Time of Evaluation Date of Evaluation: 06/01/18 Time of Evaluation: 07:19 - Subjective Subjective: called by nurse pt,s blood pressure is 70/50.pt has hx of mtestatic lung ca with mets to brain and s/p cranioatomy , no DNR , obtunded.temp 98 pulse ox 98 .unable to communicate. Objective - Vital Signs/Intake and Output Vital Signs (last 24 hours): Temp Pulse Resp BP Pulse Ox 98.0 F 78 20 86/52 L 100 06/01/18 06:00 06/01/18 06:00 06/01/18 06:00 06/01/18 06:00 06/01/18 06:00 Intake and Output: 06/01/18 06/01/18 06:59 18:59 Intake Total 0 Balance 0 - Medications Medications: Current Medications Acetylcysteine (Acetylcysteine 20%) 3 ml INH BIDRESP [facility] Last Admin: 05/31/18 19:44 Dose: 3 ml Budesonide (Pulmicort Respules) 0.5 mg IH [id number] [facility] Last Admin: 05/31/18 19:44 Dose: 0.5 mg Enoxaparin Sodium (Lovenox) 60 mg SC 0600,1800 JACQUIE PRN Reason: Protocol Last Admin: 05/31/18 17:47 Dose: 60 mg Ergocalciferol (Drisdol 50,000 Intl Units Cap) 1 cap PO Q7D [facility] Last Admin: 05/27/18 10:00 Dose: Not Given Folic Acid (Folic Acid) 1 mg PO DAILY [facility] Last Admin: 05/31/18 09:30 Dose: 1 mg Furosemide (Lasix) 20 mg PO DAILY [facility] Last Admin: 05/27/18 10:00 Dose: Not Given Sodium Chloride (Sodium Chloride 0.9%) 1,000 mls @ 999 mls/hr IV .Q1H1M STA Stop: 06/01/18 07:43 Last Admin: 06/01/18 06:50 Dose: 999 mls/hr Sodium Chloride (Sodium Chloride 0.9%) 1,000 mls @ 60 mls/hr IV .[id number] [facility] Levalbuterol HCl (Xopenex) 0.63 mg IH [id number] PRN PRN Reason: Shortness of Breath Last Admin: 05/31/18 18:10 Dose: 0.63 mg Levetiracetam (Keppra) 500 mg PO Q12 [facility] Last Admin: 05/31/18 22:15 Dose: Not Given Memantine (Namenda) 10 mg PO HS [facility] Last Admin: 05/31/18 22:15 Dose: Not Given Methylprednisolone (Solu-Medrol) 10 mg IVP Q12 [facility] Last Admin: 05/31/18 21:47 Dose: 10 mg Metoprolol Tartrate (Lopressor) 25 mg PO BID [facility] Last Admin: 05/31/18 22:30 Dose: Not Given Non-Formulary Medication (Lubiprostone [Amitiza]) 24 mg PO BID [facility] Last Admin: 05/31/18 18:54 Dose: Not Given Nystatin (Nystatin Oral Susp) 5 ml PO QID [facility] Last Admin: 05/31/18 22:15 Dose: Not Given Pantoprazole Sodium (Protonix Ec Tab) 40 mg PO DAILY [facility] Last Admin: 05/31/18 09:29 Dose: 40 mg Potassium Chloride (K-Dur 20 Meq Er Tab) 20 meq PO DAILY [facility] Last Admin: 05/31/18 09:29 Dose: 20 meq Verapamil HCl (Verapamil Inj) 2.5 mg IVP Q6H PRN PRN Reason: for heart rate >120 Last Admin: 05/28/18 23:32 Dose: 2.5 mg - Labs Labs: 06/01/18 06:30 06/01/18 06:00 PT 12.8 SECONDS (9.4-12.5) H 05/20/18 10:45 INR 1.11 (0.93-1.08) H 05/20/18 10:45 APTT 24.7 Seconds (25.1-36.5) L 05/20/18 10:45 - Constitutional Appears: Chronically Ill - Head Exam Head Exam: NORMOCEPHALIC - Eye Exam Eye Exam: Normal appearance - ENT Exam ENT Exam: Mucous Membranes Moist - Respiratory Exam Respiratory Exam: Decreased Breath Sounds - Cardiovascular Exam Cardiovascular Exam: RRR, +S1, +S2 - Neurological Exam Neurological Exam: Altered - Psychiatric Exam Psychiatric exam: Depressed - Skin Skin Exam: Dry Assessment and Plan - Assessment and Plan (Free Text) Assessment: sepsis /shock . metastatic lung ca. altered mental status Plan: fluid bolus , abreu c/s .icu consult.
[2018-06-01] MEDS: Levalbuterol 0.63 MG/3 ML Inhal Soln UD IH PRN ×2 (07:38→20:22)
[2018-06-01] MEDS: Acetylcysteine 20% Inhal Soln (4ml) INH SCH ×2 (07:38→20:22)
[2018-06-01] MEDS: Budesonide 0.5 mg/2 ml Inhal Susp UD IH SCH ×2 (07:39→20:23)
[2018-06-01] MEDS: Enoxaparin 60 mg Syringe SC SCH ×2 (07:48→18:04)
[2018-06-01] MEDS: Sodium Chloride 0.9% 1,000 ML IV SCH ×2 (07:49→12:26)
[2018-06-01 08:02] LABS: ALB/GLOB RATIO 0.9 (1.1-1.8); ALBUMIN 2.8 g/dL (3.0-4.8); ALT/SGPT 31 U/L (7-56); AST/SGOT 44 U/L (14-36)
[2018-06-01] MEDS: MethylPREDNISolone 40 mg Vial IVP SCH (10:41)
[2018-06-01] MEDS: LUBIPROSTONE 24 MG PO SCH ×2 (10:42→18:21)
[2018-06-01] MEDS: Nystatin 100,000 Units/ml Oral Susp 5 ml UD PO SCH ×4 (10:43→21:43)
[2018-06-01] MEDS: Pantoprazole 40 mg EC Tab PO SCH (10:43)
--- NOTE | 2018-06-01 10:43 | RAD ---
HISTORY: infiltrate COMPARISON: 05/28/2018 single-view chest. 05/28/2018 CT angiogram TECHNIQUE: Chest PA and lateral FINDINGS: LUNGS: Multifocal infiltrates similar to that seen on prior studies. The findings are primarily LV although there appears be interstitial component as well. PLEURA: No significant pleural effusion identified. No pneumothorax apparent. CARDIOVASCULAR: No radiographic findings to suggest acute or significant cardiovascular disease. Venous access catheter in stable, satisfactory position. OSSEOUS STRUCTURES: No significant abnormalities. VISUALIZED UPPER ABDOMEN: Normal. OTHER FINDINGS: None. IMPRESSION: No significant interval change compared to the prior examination(s).
--- NOTE | 2018-06-01 11:38 | PN ---
DATE: 06/01/2018 SUBJECTIVE: Patient seen earlier this morning in room 260. Patient's blood pressures was low and patient is overall again in poor condition. PHYSICAL EXAMINATION: VITAL SIGNS: Temperature is 98; blood pressure is 86/50, was down to 78; pulse of 88 and respiratory rate of 20. HEENT: Examination is unremarkable. NECK: Supple. LUNGS: Decreased breath sounds. HEART: Normal S1 and S2. ABDOMEN: Soft, nontender. DATA: Laboratory examination reveals a white count of 5.9, hemoglobin of 11, platelets of 52. Chemistry reveals a BUN of 53, creatinine of 1.2. LDH is noted to be 1600. Urinalysis is noted. Urine for Legionella antigen is negative. Blood culture is negative. Urine culture is negative. ASSESSMENT AND PLAN: This is a 63-year-old female who was seen earlier today with severe sepsis secondary to healthcare-associated pneumonia in a patient with non-small cell lung cancer metastasis to the brain. Patient had a craniotomy and we will repeat abreu cultures, blood, urine, sputum and urinalysis, restart antibiotics. We will order a procalcitonin. We will start the patient on meropenem and Zyvox. Overall prognosis is quite poor for this patient. Serge Kruse MD
--- NOTE | 2018-06-01 11:55 | PN ---
DATE: 06/01/2018 LOCATION: The patient is in room 260, bed 2. REASON FOR CONSULTATION AND FOLLOWUP: Tachycardia, history of non-small cell carcinoma with metastasis to the brain, post craniotomy and chemotherapy, history of COPD, hypertension. SUBJECTIVE: The patient is lying flat without any respiratory distress, chest pain or palpitation. PHYSICAL EXAMINATION: VITAL SIGNS: Blood pressure 86/52, respirations 20, pulse 78, temperature 98. HEENT: Head is normocephalic. Pupils normal. Conjunctivae slightly pale. NECK: JVP low. Carotids equal. THORAX: AP diameter normal. LUNGS: No rales. CARDIOVASCULAR: S1 and S2. ABDOMEN: Soft, . No organomegaly. Bowel sounds normal. EXTREMITIES: No clubbing. No cyanosis. LABORATORY DATA: WBC 5.9, hemoglobin 11.4, hematocrit 34.3, platelet 52. Sodium 140, potassium 4.8, BUN 53, creatinine 1.2, AST 44, ALT 31. Troponin negative. Total protein 5.8, albumin 2.8. DIAGNOSES: Sinus tachycardia, which was persistently more than 100 and initially it was came down to between 120 and 130. I gave atenolol 12.5, it came down to 110, then increased the atenolol to 25 and today the heart rate has come down to around 80, but the patient has low blood pressure. Non-small cell carcinoma with metastasis to brain, post craniotomy and chemotherapy; history of chronic obstructive pulmonary disease; hypertension; anemia; thrombocytopenia; history of thrombosis of inferior vena cava. PLAN: To hold back atenolol and give IV fluids. The patient's BUN also elevated. The patient is also getting folic acid 1 mg p.o. daily, Keppra 500 mg p.o. every 12 hours, Lovenox 60 mg subcu b.i.d., meropenem 50 mL IV every 12 hours, Namenda 10 mg p.o. at bedtime, Protonix 40 daily, hydrocortisone 50 mg IV every 8 hours. The patient is also on methylprednisolone 10 mg IV every 12 hours, Xopenex every 6 hours p.r.n. We will monitor the vital signs and follow the repeat labs. We will follow with you. Chica Fang MD [facility] # [id number]
[2018-06-01] MEDS: Meropenem IV 1 gm in NS 50 ML IVPB SCH ×2 (12:13→21:43)
[2018-06-01] MEDS: Linezolid 600 mg in D5W 300 ml 600 MG/300 ML BAG IVPB SCH ×2 (12:51→21:41)
--- NOTE | 2018-06-01 13:10 | CP.PCM.CON ---
<KarmenJhonatan albarran - Last Filed: 06/01/18 13:04> History of Present Illness - History of Present Illness History of Present Illness: ICU consult note: Dr. Villegas Reason for consult: Hypotension and Hypoxic Respiratory Failure HPI 63 year old female with pertinent medical history of metastatic NSCLC stage 4 with brain metastases s/p craniotomy with resection of the lesions was initially admitted for shortness of breath with extreme b/l LE swelling. Last night, an RESPIRATORY MEDICINE PHYSICIAN was called because patient was unable to maintain oxygen saturations and her blood pressure was falling despite 2L fluid boluses. ICU consultation was obtained for this reason. History is limited because patient is a poor historian 2/2 fatigue; however she is awake, alert and oriented. Review of Systems: 12 point ROS obtained and negative except as per HPI Surgical History: S/p resection of metastatic lesions in brain Medical History: Metastatic NSCLC stage 4 with brain metastases s/p craniotomy with resection of the lesions Allergies: NKDA Social History: +Smoker; no alcohol, no illicits Home Meds: Reviewed, as per MAR Family History: Non-contributory Past Patient History - Infectious Disease Hx of Infectious Diseases: None - Past Social History Smoking Status: Current Some Days Smoker - CARDIAC Hx Hypertension: Yes - PULMONARY Hx Chronic Obstructive Pulmonary Disease (COPD): Yes - NEUROLOGICAL Hx Neurological Disorder: No Hx Paralysis: No - HEENT Hx HEENT Problems: No - RENAL Hx Chronic Kidney Disease: No - ENDOCRINE/METABOLIC Hx Endocrine Disorders: No - HEMATOLOGICAL/ONCOLOGICAL Hx Blood Transfusions: Yes Hx Blood Transfusion Reaction: No - INTEGUMENTARY Hx Dermatological Problems: No - MUSCULOSKELETAL/RHEUMATOLOGICAL Hx Musculoskeletal Disorders: Yes - GASTROINTESTINAL Hx Gastrointestinal Disorders: No - GENITOURINARY/GYNECOLOGICAL Hx Genitourinary Disorders: Yes (HYSTERECTOMY) - PSYCHIATRIC Hx Psychophysiologic Disorder: No Hx Depression: No Hx Emotional Abuse: No Hx Physical Abuse: No Hx Substance Use: No - SURGICAL HISTORY Hx Hysterectomy: Yes Other/Comment: brain surgery - ANESTHESIA Hx Anesthesia Reactions: No Hx Malignant Hyperthermia: No Meds Allergies/Adverse Reactions: Allergies Allergy/AdvReac Type Severity Reaction Status Date / Time No Known Allergies Allergy Verified 05/20/18 14:01 - Medications Medications: Current Medications Acetylcysteine (Acetylcysteine 20%) 3 ml INH BIDRESP JACQUIE Last Admin: 06/01/18 07:38 Dose: 3 ml Budesonide (Pulmicort Respules) 0.5 mg IH [id number] [facility] Last Admin: 06/01/18 07:39 Dose: 0.5 mg Enoxaparin Sodium (Lovenox) 60 mg SC 0600,1800 [facility] PRN Reason: Protocol Last Admin: 06/01/18 07:48 Dose: 60 mg Ergocalciferol (Drisdol 50,000 Intl Units Cap) 1 cap PO Q7D [facility] Last Admin: 05/27/18 10:00 Dose: Not Given Folic Acid (Folic Acid) 1 mg PO DAILY [facility] Last Admin: 06/01/18 10:42 Dose: Not Given Hydrocortisone Sodium Succinate (Solu-Cortef) 50 mg IVP Q8 [facility] Sodium Chloride (Sodium Chloride 0.9%) 1,000 mls @ 60 mls/hr IV .[id number] [facility] Last Admin: 06/01/18 12:26 Dose: 60 mls/hr Meropenem (Merrem Iv 1 Gm Premix) 50 mls @ 100 mls/hr IVPB Q12 [facility] PRN Reason: Protocol Stop: 06/10/18 10:01 Last Admin: 06/01/18 12:13 Dose: 100 mls/hr Linezolid (Zyvox 600mg/300ml D5w) 600 mg in 300 mls @ 200 mls/hr IVPB Q12 [facility] PRN Reason: Protocol Stop: 06/10/18 10:01 Last Admin: 06/01/18 12:51 Dose: 200 mls/hr Levalbuterol HCl (Xopenex) 0.63 mg IH [id number] PRN PRN Reason: Shortness of Breath Last Admin: 06/01/18 07:38 Dose: 0.63 mg Levetiracetam (Keppra) 500 mg PO Q12 [facility] Last Admin: 06/01/18 10:42 Dose: Not Given Memantine (Namenda) 10 mg PO HS [facility] Last Admin: 05/31/18 22:15 Dose: Not Given Methylprednisolone (Solu-Medrol) 10 mg IVP Q12 [facility] Last Admin: 06/01/18 10:41 Dose: 10 mg Non-Formulary Medication (Lubiprostone [Amitiza]) 24 mg PO BID [facility] Last Admin: 06/01/18 10:42 Dose: Not Given Nystatin (Nystatin Oral Susp) 5 ml PO QID [facility] Last Admin: 06/01/18 10:43 Dose: Not Given Pantoprazole Sodium (Protonix Ec Tab) 40 mg PO DAILY [facility] Last Admin: 06/01/18 10:43 Dose: Not Given Verapamil HCl (Verapamil Inj) 2.5 mg IVP Q6H PRN PRN Reason: for heart rate >120 Last Admin: 05/28/18 23:32 Dose: 2.5 mg Physical Exam - Constitutional Appears: Non-toxic, Cachectic, Chronically Ill - Head Exam Head Exam: ATRAUMATIC, NORMAL INSPECTION, NORMOCEPHALIC - Eye Exam Eye Exam: EOMI, Normal appearance, PERRL Pupil Exam: NORMAL ACCOMODATION, PERRL - ENT Exam ENT Exam: Mucous Membranes Moist, Normal Exam - Neck Exam Neck exam: Positive for: Normal Inspection - Respiratory Exam Respiratory Exam: Rales, NORMAL BREATHING PATTERN Additional comments: Patient has mild rales in LLL chapman - Cardiovascular Exam Cardiovascular Exam: REGULAR RHYTHM - GI/Abdominal Exam GI & Abdominal Exam: Normal Bowel Sounds, Soft. absent: Tenderness - Extremities Exam Extremities exam: Positive for: normal inspection - Back Exam Back exam: NORMAL INSPECTION - Neurological Exam Neurological exam: Alert, CN II-XII Intact, Normal Gait, Oriented x3, Reflexes Normal - Psychiatric Exam Psychiatric exam: Normal Affect, Normal Mood - Skin Skin Exam: Dry, Intact, Normal Color, Warm Results - Vital Signs Recent Vital Signs: Last Vital Signs Temp 98.8 F 06/01/18 12:00 Pulse 90 06/01/18 12:00 Resp 20 06/01/18 12:00 BP 89/53 L 06/01/18 12:00 Pulse Ox 95 06/01/18 12:00 - Labs Result Diagrams: 06/01/18 06:30 06/01/18 06:00 Labs: Laboratory Results - last 24 hr 06/01/18 06/01/18 06/01/18 06:00 06:00 06:30 WBC 5.9 RBC 3.40 L Hgb 11.4 L Hct 34.3 L MCV 100.9 MCH 33.5 MCHC 33.2 RDW 15.0 H Plt Count 52 L MPV 12.6 H Gran % 82.6 H Lymph % (Auto) 14.7 L Dickinson % (Auto) 2.0 Eos % (Auto) 0.0 L Baso % (Auto) 0.7 Gran # 4.90 Lymph # (Auto) 0.9 L Dickinson # (Auto) 0.1 Eos # (Auto) 0.0 Baso # (Auto) 0.04 pCO2 26 L pO2 229.0 H HCO3 16.5 L ABG pH 7.41 ABG Total CO2 17.3 L ABG O2 Saturation 99.9 H ABG Base Excess -6.5 L ABG Potassium 3.5 L Sodium 140 142.0 Chloride 109 H 118.0 H Glucose 113 H Lactate 1.3 Mechanical Rate 14 FiO2 100.0 Inspiratory BiPAP 10 Potassium 4.8 Carbon Dioxide 21 Anion Gap 15 BUN 53 H Creatinine 1.2 Est GFR ( Amer) 55 Est GFR (Non-Af Amer) 46 Random Glucose 146 H Calcium 9.4 Total Bilirubin 0.4 AST 44 H D ALT 31 Alkaline Phosphatase 72 Lactate Dehydrogenase 1600 H Total Creatine Kinase < 20 L Troponin I 0.01 D Total Protein 5.8 Albumin 2.8 L Globulin 3.0 Albumin/Globulin Ratio 0.9 L Cortisol AM Sample Arterial Blood Potassium 3.5 L 06/01/18 07:15 WBC RBC Hgb Hct MCV MCH MCHC RDW Plt Count MPV Gran % Lymph % (Auto) Dickinson % (Auto) Eos % (Auto) Baso % (Auto) Gran # Lymph # (Auto) Dickinson # (Auto) Eos # (Auto) Baso # (Auto) pCO2 pO2 HCO3 ABG pH ABG Total CO2 ABG O2 Saturation ABG Base Excess ABG Potassium Sodium Chloride Glucose Lactate Mechanical Rate FiO2 Inspiratory BiPAP Potassium Carbon Dioxide Anion Gap BUN Creatinine Est GFR ( Amer) Est GFR (Non-Af Amer) Random Glucose Calcium Total Bilirubin AST ALT Alkaline Phosphatase Lactate Dehydrogenase Total Creatine Kinase Troponin I Total Protein Albumin Globulin Albumin/Globulin Ratio Cortisol AM Sample 23.6 H Arterial Blood Potassium Assessment & Plan - Assessment and Plan (Free Text) Assessment: 63 year old female under ICU management for possible distributive shock in the setting of sepsis. HCAP s/p levaquin, vancomycin, zosyn; currently on Merrem, Zyvox Hx metastatic NSCLC stage 4 with brain metastases s/p craniotomy with resection of the lesions Hx Tobacco abuse Plan Neuro: - Maintain normothermia - Amantadine for confusion Pulm: - Maintain sats with HFNC - Merrem/Zyvox for possible HCAP - Stress dose steroids for possible COPD Cardio: - Fluid resuscitation - Levophed after fluid resuscitation - Stress dose steroids for possible adrenal insufficiency component of shock - Lovenox for IVC thrombus GI: - Protonix for PPX : - Maintain euvolemia, replete electrolytes PRN Heme: - DVT IVC with Lovenox - metastatic NSCLC stage 4 with brain metastases s/p craniotomy - as per Dr. Carranza ID: - HCAP: Merrem/Zyvox as per Dr. Mccain Endo: - Maintain euglycemia <LitinskiShine B - Last Filed: 06/01/18 14:08> Meds - Medications Medications: Current Medications Acetylcysteine (Acetylcysteine 20%) 3 ml INH BIDRESP [facility] Last Admin: 06/01/18 07:38 Dose: 3 ml Budesonide (Pulmicort Respules) 0.5 mg IH [id number] [facility] Last Admin: 06/01/18 07:39 Dose: 0.5 mg Enoxaparin Sodium (Lovenox) 60 mg SC 0600,1800 JACQUIE PRN Reason: Protocol Last Admin: 06/01/18 07:48 Dose: 60 mg Ergocalciferol (Drisdol 50,000 Intl Units Cap) 1 cap PO Q7D [facility] Last Admin: 05/27/18 10:00 Dose: Not Given Folic Acid (Folic Acid) 1 mg PO DAILY [facility] Last Admin: 06/01/18 10:42 Dose: Not Given Hydrocortisone Sodium Succinate (Solu-Cortef) 50 mg IVP Q8 [facility] Last Admin: 06/01/18 13:42 Dose: 50 mg Sodium Chloride (Sodium Chloride 0.9%) 1,000 mls @ 60 mls/hr IV .[id number] [facility] Last Admin: 06/01/18 12:26 Dose: 60 mls/hr Meropenem (Merrem Iv 1 Gm Premix) 50 mls @ 100 mls/hr IVPB Q12 [id number] PRN Reason: Protocol Stop: 06/10/18 10:01 Last Admin: 06/01/18 12:13 Dose: 100 mls/hr Linezolid (Zyvox 600mg/300ml D5w) 600 mg in 300 mls @ 200 mls/hr IVPB Q12 JACQUIE PRN Reason: Protocol Stop: 06/10/18 10:01 Last Admin: 06/01/18 12:51 Dose: 200 mls/hr Levalbuterol HCl (Xopenex) 0.63 mg IH [id number] PRN PRN Reason: Shortness of Breath Last Admin: 06/01/18 07:38 Dose: 0.63 mg Levetiracetam (Keppra) 500 mg PO Q12 [facility] Last Admin: 06/01/18 10:42 Dose: Not Given Memantine (Namenda) 10 mg PO HS [facility] Last Admin: 05/31/18 22:15 Dose: Not Given Methylprednisolone (Solu-Medrol) 10 mg IVP Q12 [facility] Last Admin: 06/01/18 10:41 Dose: 10 mg Non-Formulary Medication (Lubiprostone [Amitiza]) 24 mg PO BID [facility] Last Admin: 06/01/18 10:42 Dose: Not Given Nystatin (Nystatin Oral Susp) 5 ml PO QID [facility] Last Admin: 06/01/18 13:33 Dose: Not Given Pantoprazole Sodium (Protonix Ec Tab) 40 mg PO DAILY [facility] Last Admin: 06/01/18 10:43 Dose: Not Given Verapamil HCl (Verapamil Inj) 2.5 mg IVP Q6H PRN PRN Reason: for heart rate >120 Last Admin: 05/28/18 23:32 Dose: 2.5 mg Results - Vital Signs Recent Vital Signs: Last Vital Signs Temp 98.8 F 06/01/18 12:00 Pulse 90 06/01/18 12:00 Resp 27 H 06/01/18 13:48 BP 89/53 L 06/01/18 12:00 Pulse Ox 95 06/01/18 12:00 - Labs Result Diagrams: 06/01/18 06:30 06/01/18 06:00 Labs: Laboratory Results - last 24 hr 06/01/18 06/01/18 06/01/18 06:00 06:00 06:30 WBC 5.9 RBC 3.40 L Hgb 11.4 L Hct 34.3 L MCV 100.9 MCH 33.5 MCHC 33.2 RDW 15.0 H Plt Count 52 L MPV 12.6 H Gran % 82.6 H Lymph % (Auto) 14.7 L Dickinson % (Auto) 2.0 Eos % (Auto) 0.0 L Baso % (Auto) 0.7 Gran # 4.90 Lymph # (Auto) 0.9 L Dickinson # (Auto) 0.1 Eos # (Auto) 0.0 Baso # (Auto) 0.04 pCO2 26 L pO2 229.0 H HCO3 16.5 L ABG pH 7.41 ABG Total CO2 17.3 L ABG O2 Saturation 99.9 H ABG Base Excess -6.5 L ABG Potassium 3.5 L Sodium 140 142.0 Chloride 109 H 118.0 H Glucose 113 H Lactate 1.3 Mechanical Rate 14 FiO2 100.0 Inspiratory BiPAP 10 Potassium 4.8 Carbon Dioxide 21 Anion Gap 15 BUN 53 H Creatinine 1.2 Est GFR ( Amer) 55 Est GFR (Non-Af Amer) 46 Random Glucose 146 H Calcium 9.4 Total Bilirubin 0.4 AST 44 H D ALT 31 Alkaline Phosphatase 72 Lactate Dehydrogenase 1600 H Total Creatine Kinase < 20 L Troponin I 0.01 D Total Protein 5.8 Albumin 2.8 L Globulin 3.0 Albumin/Globulin Ratio 0.9 L Procalcitonin Cortisol AM Sample Arterial Blood Potassium 3.5 L 06/01/18 06/01/18 07:15 09:00 WBC RBC Hgb Hct MCV MCH MCHC RDW Plt Count MPV Gran % Lymph % (Auto) Dickinson % (Auto) Eos % (Auto) Baso % (Auto) Gran # Lymph # (Auto) Dickinson # (Auto) Eos # (Auto) Baso # (Auto) pCO2 pO2 HCO3 ABG pH ABG Total CO2 ABG O2 Saturation ABG Base Excess ABG Potassium Sodium Chloride Glucose Lactate Mechanical Rate FiO2 Inspiratory BiPAP Potassium Carbon Dioxide Anion Gap BUN Creatinine Est GFR ( Amer) Est GFR (Non-Af Amer) Random Glucose Calcium Total Bilirubin AST ALT Alkaline Phosphatase Lactate Dehydrogenase Total Creatine Kinase Troponin I Total Protein Albumin Globulin Albumin/Globulin Ratio Procalcitonin 0.44 Cortisol AM Sample 23.6 H Arterial Blood Potassium Attending/Attestation - Attestation I have personally seen and examined this patient.: Yes I have fully participated in the care of the patient.: Yes I have reviewed all pertinent clinical information: Yes Notes (Text): 06/01/18 14:02 63 yo female with stage 4 NSLCA with mets to the brain, s/p crani, now with some drop in BP and concomittant worsening of mental status and renal function, despite absence of lactic acidosis. Cant rule out component of distributive shock pathophysiology, will admit to ICU. Patient received 3 L of NS with some improvement in BP, now MAP 79. Prior CT chest (few days ago) showed some b/l diffuse GGO, however BNP was 200s and Echo did not reveal substantial LV dysfunction, pneumonitis vs atypical pneumonia, vs ILD. cont abx, up steroids, monitor u/o, will discuss with family advanced directive. High flow 02 with fi02 60% and flow 50L/min. comfortable. on theraeutic dose of lovenox, CT chest- -no PE. Echo-no tamponade and CXR-no tension pneumo ccm time 40 min
--- NOTE | 2018-06-01 16:00 | PN ---
DATE: 06/01/2018 This is [facility] visit in the Intensive Care Unit. For Dr. Carranza. SUBJECTIVE: The patient is a 63-year-old female, seen lying obtunded in the Intensive Care Unit with family at the bedside. Transferred early this morning due to hypotension, increasing shortness of breath with the patient unable to maintain oxygen saturations despite appropriate treatment on the floor. The patient is known to suffer from non-small cell CA of the lung, stage IV brain metastasis, status post craniotomy with severe COPD and was unable to participate in physiotherapy due to drops in her pulse ox on sitting. With this, she is now being followed in the Intensive Care Unit as per Dr. Fang, Cardiology; Dr. Palmer, Pulmonology and collections attorney, Dr. Villegas. She is also being treated for sepsis related to pneumonia with treatment by Dr. Kruse, Infectious Disease leasing consultant. However, her blood cultures were negative with repeat testing now ordered. The patient is presently on high-flow oxygen as BiPAP was originally recommended with poor results. OBJECTIVE PHYSICAL EXAMINATION: VITAL SIGNS: Temperature 98.8, pulse 92, respirations 25, blood pressure 89/53, pulse ox is 98%. HEENT: She is lethargic, but arousable, otherwise unremarkable. NECK: Supple. Carotids appreciated bilaterally. LUNGS: Scattered rhonchi. HEART: Tachy rate. Regular rhythm. ABDOMEN: Obese, soft, nontender. EXTREMITIES: No edema. SKIN: Warm and dry. She has a craniotomy scar on her scalp. LABORATORY DATA: The patient's labs were done. White blood cell count of 5.9, hemoglobin 11.4, hematocrit 34.2, platelet count of 52,000 with no active bleeding appreciated. BUN of 53 with a normal creatinine of 1.2. LDH of 16,000, AST of 44, troponin of 0.01 with a procalcitonin of 0.4. Her ABG showed a pO2 of 229, bicarb is 16.5, pH is 7.41. The patient did have a chest x-ray done yesterday, it was read as no significant interval change compared with prior exams. ASSESSMENT: The assessment for this patient is that of hypotension, hypoxemia, rule out early sepsis/shock, history of stage IV non-small cell cancer with metastasis to the brain, status post craniotomy, chronic obstructive pulmonary disease, hypertension, thrombocytopenia, history of thrombosis of inferior vena cava, recently treated pneumonia with mental status change, rai face secondary to steroids. PLAN: The plan for this patient after conversation with Dr. Carranza is to continue present medical regimen in the Intensive Care Unit as per Dr. Villegas, Dr. Fang and Dr. Palmer. We will monitor clinically and with labs. We will order for a manual platelet count in the morning. However, there appears to be no active bleeding at this point with antibiotics restarted as per Dr. Kruse. Prognosis for this patient is guarded. This is a complex patient with a comprehensive medically necessary and appropriate visit carried out in excess of 30 minutes with the patient and questions answered by her family members at the bedside with nursing staff also consulted regarding her care. Corbin Borrego MD
[2018-06-01 16:24] LABS: URINE BILIRUBIN NEGATIVE (NEGATIVE); URINE BLOOD MODERATE (NEGATIVE); URINE GLUCOSE (UA) NEGATIVE (NEGATIVE); URINE LEUKOCYTE ESTERASE SMALL Leu/uL (NEGATIVE); URINE PROTEIN 30 mg/dL (<30 mg/dL); URINE UROBILINOGEN 0.2 E.U./dL (<1 E.U./dL)
[2018-06-01 16:25] LABS: URINE APPEARANCE CLOUDY (CLEAR); URINE COLOR YELLOW (YELLOW)
[2018-06-01 16:34] LABS: URINE BACTERIA MOD (NEG)
--- NOTE | 2018-06-01 17:07 | PN ---
DATE: 06/01/2018 PULMONARY PROGRESS NOTE REFERRING PHYSICIAN: Yaneth Darby MD. SUBJECTIVE: She is lying in the bed, requiring BiPAP. Became hypotensive, lethargic, but arousable. Follows simple command. Does not have any particular complaint. Also seen by manager safe, Dr. Villegas. No hemoptysis. No hematemesis. No hematuria. No diarrhea. No leg swelling reported. OBJECTIVE: GENERAL: Lying in the bed, lethargic. VITAL SIGNS: Temperature is 98, heart rate is 75, respiratory rate is 20, blood pressure 89/53, pulse ox 95% on BiPAP. HEENT: Moist mucous membrane. Crowded airway. NECK: Supple. No JVD. LUNGS: Have scattered rhonchi. HEART: S1, S2. ABDOMEN: Soft, nontender. No organomegaly. EXTREMITIES: There is no edema. NEUROLOGICAL: Sleepy, arousable. Follows simple command. MEDICATIONS: She is on Mucomyst inhaled twice a day, vitamin D weekly, folic acid 1 mg daily, Keppra 500 mg twice a day, Lovenox 60 mg subcu twice a day, Amitiza 24 mcg twice a day, meropenem 1 g IV every 12 hours, Namenda 10 mg daily, Protonix 40 mg daily, Pulmicort inhaled twice a day, IV fluid normal saline 60 mL/hour, Solu-Medrol 10 mg daily, verapamil 2.5 mg every 6 hours p.r.n., Xopenex inhaled every 6 hours, Zyvox 600 mg every 12 hours. LABORATORY DATA: Shows hemoglobin 11.4, hematocrit 34.3, WBC 5.9, platelet is 52. Has ABG done, which showed pH 7.41, pCO2 of 26, O2 of 229, this is on BiPAP 10/6. Sodium 140, potassium 4.8, chloride 109, bicarbonate 21, BUN 53, creatinine 1.2, glucose 146, calcium 9.4, AST 44, ALT 31, alk phos is 72. LDH 1600. Troponin less than 0.01. Albumin 2.8. Cortisol level this morning is 23. Procalcitonin is 0.44. Chest x-ray shows some bilateral infiltrates. IMPRESSION AND PLAN: Sepsis, pulmonary infiltrate, chronic lung disease, non-small cell lung cancer with metastatic disease to the brain and bones, history of craniectomy for resection of tumor, pulmonary hypertension, recent tachycardia, hypoxemia, presently hypotensive, already resuscitated with the fluids, not much relief. Case discussed with the manager safe. Suggested to take the patient to Intensive Care Unit for close monitoring. We will get cortisol level, which was 24 or so. Agree with the cortisol IV per day or two. Continue IV fluid. Keep head at 45 degrees. Precaution with fluid overload. Continue bilevel positive airway pressure while sleeping. Continue broad-spectrum antibiotics covering healthcare-associated sepsis. Follow up labs in the morning. Thank you and we will follow with you. Chica Palmer MD [facility]
--- NOTE | 2018-06-02 04:33 | PN ---
DATE: 06/01/2018 SUBJECTIVE: The patient is a 63-year-old female. The patient was seen and examined on the bedside on 06/01/2018. Patient is in the unit, requiring BiPAP, became hypotensive, lethargic, but arousable, but follows simple commands, no complaints. The patient was transferred from telemetry to the unit. No hematochezia. No hematemesis. No hematuria. No diarrhea. Patient is noncompliant with BiPAP. Last night, she refused to use the BiPAP. PHYSICAL EXAMINATION: VITAL SIGNS: Temperature 98, heart rate 75, respiratory rate 20, blood pressure 89/53, pulse oximetry 95% on room air. HEENT: Head normocephalic, atraumatic. Eyes, PERRLA. Extraocular muscles intact. Conjunctivae clear. Nose patent. Mucous membrane moist. NECK: Supple. No carotid bruit. No JVD or thyromegaly. CHEST: Bilaterally symmetrical. HEART: S1 and S2 positive. LUNGS: Clear to auscultation. ABDOMEN: Soft. Bowel sounds present. No organomegaly. EXTREMITIES: No edema. No cyanosis. NEUROLOGICAL: The patient is sleepy, arousable. Follows simple commands. MEDICATIONS: B complex, vitamin D, folic acid, Keppra, Lovenox, Amitiza, meropenem, Namenda, Protonix, Pulmicort, NS, Solu-Medrol, verapamil and Xopenex. LABORATORY DATA: Hemoglobin 11.4, hematocrit 34.3, white blood cells 5.9, platelets noted . Sodium 140, potassium 4.8. AST 44 and ALT 31. ASSESSMENT AND PLAN: Ms. Nicol Brannon is a 63-year-old lady with multiple medical problems, sepsis, pulmonary infiltrates, chronic lung disease, non-small cell lung cancer with metastatic disease to the brain and bones, history of craniotomy for resection of tumor, pulmonary hypertension, recent tachycardia, hypoxemia, presently hypotensive, already resuscitated with the fluid. I appreciated Dr. Palmer's and plasterer spray gun's notes. Dr. Palmer ordered cortisol level. Continue IV fluid. Precautions with IV fluid overload. Continue bilevel positive airway pressure while sleeping. Continue broad-spectrum antibiotics. Infectious Disease on the case. Gastrointestinal and deep venous thrombosis prophylaxis. Repeat labs. We will follow up. Yaneth Darby MD [facility] # [id number] [place]
[2018-06-02] MEDS: Enoxaparin 60 mg Syringe SC SCH ×2 (05:15→17:25)
[2018-06-02 07:10] LABS: BLOOD UREA NITROGEN 30 mg/dL (7-21); CALCIUM 9.2 mg/dL (8.4-10.5); GFR AFRICAN-AMERICAN > 60; GFR NON-AFRICAN AMERICAN > 60
[2018-06-02 07:42] LABS: GRAN # 3.57 (1.4-6.5); GRAN % 91.8 % (50.0-68.0); LYMPH # 0.3 (1.2-3.4); LYMPH % 7.7 % (22.0-35.0); MEAN CELL VOLUME 101.3 fl (80.0-105.0); MEAN CORPUSCULAR HEMOGLOBIN 33.2 pg (25.0-35.0); MEAN CORPUSCULAR HGB CONC 32.8 g/dl (31.0-37.0); MEAN PLATELET VOLUME 12.5 fl (7.0-11.0); MONO % 0.5 % (1.0-6.0); RBC 3.01 10^6/uL (3.5-6.1); RED CELL DISTRIBUTION WIDTH 14.7 % (11.5-14.5); WHITE BLOOD COUNT 3.9 10^3/ul (4.5-11.0)
[2018-06-02 07:46] LABS: PLATELET COUNT 42 10^3/uL (120.0-450.0)
[2018-06-02] MEDS: Acetylcysteine 20% Inhal Soln (4ml) INH SCH ×2 (07:50→21:23)
[2018-06-02] MEDS: Levalbuterol 0.63 MG/3 ML Inhal Soln UD IH PRN ×2 (07:53→21:24)
[2018-06-02] MEDS: Budesonide 0.5 mg/2 ml Inhal Susp UD IH SCH ×2 (07:53→21:24)
[2018-06-02 09:04] LABS: BAND 7 % (0-2); LYMPHOCYTE 5 % (22.0-35.0); MONOCYTE 1 % (1.0-6.0); NEUTROPHIL 87 % (50.0-70.0); NUCLEATED RED BLOOD CELL 1 %
[2018-06-02 09:05] LABS: LARGE PLATELETS PRESENT; PLATELET ESTIMATE LOW (NORMAL)
[2018-06-02] MEDS: Meropenem IV 1 gm in NS 50 ML IVPB SCH ×2 (09:07→21:16)
[2018-06-02] MEDS: Nystatin 100,000 Units/ml Oral Susp 5 ml UD PO SCH ×4 (09:07→21:17)
[2018-06-02 09:08] LABS: PLATELET COUNT MANUAL 45 K/mm3 (120-450)
[2018-06-02] MEDS: Pantoprazole 40 mg EC Tab PO SCH (09:08)
[2018-06-02] MEDS: Linezolid 600 mg in D5W 300 ml 600 MG/300 ML BAG IVPB SCH ×2 (09:09→21:16)
--- NOTE | 2018-06-02 10:26 | CP.CCUPN ---
<OmayraTam - Last Filed: 06/02/18 12:20> CCU Subjective - Physician Review Subjective (Free Text): Tam Cutler PGY-1 ICU Progress Note for Dr. Perry Patient was seen and examined at bedside. Pt reports that she is feeling well, eating well and does not have any complaints at this time. As per nurse, no acute events overnight. Pt is on high flow oxygen (40% FiO2). Pt denies headache , dizziness, lightheadedness, weakness, chest pain, shortness of breath, abdominal pain, diarrhea, constipation, blood in the stool, edema, calf pain. Pt reports that her last bowel movement was yesterday and that it was normal. Urine output is 400 mL of dark yellow urine. 06/02/18 10:45 CCU Objective - Vital Signs / Intake & Output Vital Signs (Last 4 hours): Temp Pulse Resp BP Pulse Ox 98.8 F 69 17 106/67 100 06/02/18 06:00 06/02/18 06:00 06/02/18 06:00 06/02/18 06:00 06/02/18 06:00 Intake and Output (Last 8hrs): Intake & Output 06/01/18 06/02/18 06/02/18 22:59 06:59 14:59 Intake Total 1418 920 Output Total 300 100 Balance 1118 820 Intake: IV 1418 920 Right Chest Wall PORT 1418 920 Oral 0 Output: Urine 300 100 Urine, Voided 300 100 Other: # Bowel Movements 1 - Physical Exam Head: Negative for: Normocephalic (s/p craniotomy due to brain mets) Pupils: Positive for: PERRL Extroacular Muscles: Positive for: EOMI Conjunctiva: Positive for: Normal Respiratory/Chest: Positive for: Rhonchi (ronchi in bilateral lower lobes). Negative for: Clear to Auscultation, Accessory Muscle Use, Wheezes Cardiovascular: Positive for: Regular Rate and Rhythm, Normal S1, S2. Negative for: Murmurs, Rub, Gallop Abdomen: Positive for: Normal Bowel Sounds. Negative for: Tenderness, Distention, Peritoneal Signs Lower Extremity: Positive for: NORMAL PULSES. Negative for: Edema, CALF TENDERNESS, Jesus's Sign Neurological: Positive for: Speech Normal, Motor Func Grossly Intact Skin: Positive for: Warm, Dry, Normal Color Psychiatric: Positive for: Alert, Oriented x 3 - Medications Active Medications: Active Medications Generic Name Dose Route Start Last Admin Trade Name Freq PRN Reason Stop Dose Admin Acetylcysteine 3 ml 05/23/18 08:00 06/02/18 07:50 Acetylcysteine 20% INH 3 ml BIDRESP JACQUIE Administration Budesonide 0.5 mg 05/21/18 20:00 06/02/18 07:53 Pulmicort Respules IH 0.5 mg [id number] JACQUIE Administration Enoxaparin Sodium 60 mg 05/22/18 00:13 06/02/18 05:15 Lovenox SC 60 mg 0600,1800 JACQUIE Administration Protocol Ergocalciferol 1 cap 05/27/18 10:00 05/27/18 10:00 Drisdol 50,000 Intl Units Cap PO Not Given Q7D JACQUIE Folic Acid 1 mg 05/21/18 10:00 06/02/18 09:08 Folic Acid PO 1 mg DAILY JACQUIE Administration Hydrocortisone Sodium Succinate 50 mg 06/02/18 22:00 Solu-Cortef IVP Q12 JACQUIE Sodium Chloride 1,000 mls @ 60 mls/hr 06/01/18 07:00 06/01/18 12:26 Sodium Chloride 0.9% IV 60 mls/hr .[id number] JACQUIE Administration Meropenem 50 mls @ 100 mls/hr 06/01/18 10:00 06/02/18 09:07 Merrem Iv 1 Gm Premix IVPB 06/10/18 10:01 100 mls/hr Q12 JACQUIE Administration Protocol Linezolid 600 mg in 300 mls @ 200 mls/hr 06/01/18 10:00 06/02/18 09:09 Zyvox 600mg/300ml D5w IVPB 06/10/18 10:01 200 mls/hr Q12 JACQUIE Administration Protocol Levalbuterol HCl 0.63 mg 05/27/18 10:35 06/02/18 07:53 Xopenex IH 0.63 mg [id number] PRN Administration Shortness of Breath Levetiracetam 500 mg 05/20/18 22:00 06/02/18 09:08 Keppra PO 500 mg Q12 JACQUIE Administration Memantine 10 mg 05/20/18 22:00 06/01/18 21:43 Namenda PO 10 mg HS JACQUIE Administration Non-Formulary Medication 24 mg 05/20/18 18:00 06/01/18 18:21 Lubiprostone [Amitiza] PO Not Given BID JACQUIE Nystatin 5 ml 05/29/18 18:00 06/02/18 09:07 Nystatin Oral Susp PO 5 ml QID JACQUIE Administration Nystatin 1 ea 06/02/18 10:00 Mycostatin Cream TOP TID JACQUIE Pantoprazole Sodium 40 mg 05/21/18 10:00 06/02/18 09:08 Protonix Ec Tab PO 40 mg DAILY JACQUIE Administration Verapamil HCl 2.5 mg 05/27/18 13:03 05/28/18 23:32 Verapamil Inj IVP 2.5 mg Q6H PRN Administration for heart rate >120 - Patient Studies Lab Studies: Microbiology Studies 06/01/18 07:00 Blood Culture - Preliminary Blood NO GROWTH AFTER 24 HOURS 05/27/18 12:50 Blood Culture - Final Blood-Thru Central Line NO GROWTH AFTER 5 DAYS Gram Stain - Final TEST NOT PERFORMED 05/27/18 12:50 Blood Culture - Final Blood-Thru Central Line NO GROWTH AFTER 5 DAYS Gram Stain - Final TEST NOT PERFORMED Lab Studies 06/02/18 06/02/18 06/01/18 Range/Units 05:40 05:40 15:00 WBC 3.9 L D (4.5-11.0) 10^3/ul RBC 3.01 L (3.5-6.1) 10^6/uL Hgb 10.0 L (12.0-16.0) g/dL Hct 30.5 L (36.0-48.0) % MCV 101.3 (80.0-105.0) fl MCH 33.2 (25.0-35.0) pg MCHC 32.8 (31.0-37.0) g/dl RDW 14.7 H (11.5-14.5) % Plt Count 42 L* (120.0-450.0) 10^3/uL Manual Plt Count 45 L* (120-450) K/mm3 MPV 12.5 H (7.0-11.0) fl Gran % 91.8 H (50.0-68.0) % Lymph % (Auto) 7.7 L (22.0-35.0) % Lares % (Auto) 0.5 L (1.0-6.0) % Eos % (Auto) 0.0 L (1.5-5.0) % Baso % (Auto) 0.0 (0.0-3.0) % Gran # 3.57 (1.4-6.5) Lymph # (Auto) 0.3 L (1.2-3.4) Lares # (Auto) 0.0 L (0.1-0.6) Eos # (Auto) 0.0 (0.0-0.7) Baso # (Auto) 0.00 (0.0-2.0) K/mm3 Neutrophils % (Manual) 87 H (50.0-70.0) % Band Neutrophils % 7 H (0-2) % Lymphocytes % (Manual) 5 L (22.0-35.0) % Monocytes % (Manual) 1 (1.0-6.0) % Nucleated RBC % 1 % Platelet Evaluation Low (NORMAL) Large Platelets Present Sodium 141 (132-148) mmol/L Potassium 3.8 (3.6-5.0) mmol/L Chloride 111 H (98-107) mmol/L Carbon Dioxide 24 (21-33) mmol/L Anion Gap 10 (10-20) BUN 30 H (7-21) mg/dL Creatinine 0.8 (0.7-1.2) mg/dl Est GFR ( Amer) > 60 Est GFR (Non-Af Amer) > 60 Random Glucose 79 (70-110) mg/dL Calcium 9.2 (8.4-10.5) mg/dL Phosphorus 3.6 (2.5-4.5) mg/dL Magnesium 2.0 (1.7-2.2) mg/dL Procalcitonin (0.19-0.49) NG/ML Cortisol AM Sample (4.46-22.7) ug/dL Urine Color Yellow (YELLOW) Urine Appearance Cloudy (CLEAR) Urine pH 6.0 (4.7-8.0) Ur Specific [place] 1.025 (1.005-1.035) Urine Protein 30 H (<30 mg/dL) mg/dL Urine Glucose (UA) Negative (NEGATIVE) mg/dL Urine Ketones Negative (NEGATIVE) mg/dL Urine Blood Moderate H (NEGATIVE) Urine Nitrate Negative (NEGATIVE) Urine Bilirubin Negative (NEGATIVE) Urine Urobilinogen 0.2 (<1 E.U./dL) E.U./dL Ur Leukocyte Esterase Small H (NEGATIVE) Madina/uL Urine RBC 1 - 3 (0-2) /hpf Urine WBC 1 - 3 (0-6) /hpf Ur Epithelial Cells 3 - 4 (0-5) /hpf Urine Bacteria Mod (NEG) Urine Other Uyeast 06/01/18 06/01/18 Range/Units 09:00 07:15 WBC (4.5-11.0) 10^3/ul RBC (3.5-6.1) 10^6/uL Hgb (12.0-16.0) g/dL Hct (36.0-48.0) % MCV (80.0-105.0) fl MCH (25.0-35.0) pg MCHC (31.0-37.0) g/dl RDW (11.5-14.5) % Plt Count (120.0-450.0) 10^3/uL Manual Plt Count (120-450) K/mm3 MPV (7.0-11.0) fl Gran % (50.0-68.0) % Lymph % (Auto) (22.0-35.0) % Lares % (Auto) (1.0-6.0) % Eos % (Auto) (1.5-5.0) % Baso % (Auto) (0.0-3.0) % Gran # (1.4-6.5) Lymph # (Auto) (1.2-3.4) Lares # (Auto) (0.1-0.6) Eos # (Auto) (0.0-0.7) Baso # (Auto) (0.0-2.0) K/mm3 Neutrophils % (Manual) (50.0-70.0) % Band Neutrophils % (0-2) % Lymphocytes % (Manual) (22.0-35.0) % Monocytes % (Manual) (1.0-6.0) % Nucleated RBC % % Platelet Evaluation (NORMAL) Large Platelets Sodium (132-148) mmol/L Potassium (3.6-5.0) mmol/L Chloride (98-107) mmol/L Carbon Dioxide (21-33) mmol/L Anion Gap (10-20) BUN (7-21) mg/dL Creatinine (0.7-1.2) mg/dl Est GFR ( Amer) Est GFR (Non-Af Amer) Random Glucose (70-110) mg/dL Calcium (8.4-10.5) mg/dL Phosphorus (2.5-4.5) mg/dL Magnesium (1.7-2.2) mg/dL Procalcitonin 0.44 (0.19-0.49) NG/ML Cortisol AM Sample 23.6 H (4.46-22.7) ug/dL Urine Color (YELLOW) Urine Appearance (CLEAR) Urine pH (4.7-8.0) Ur Specific [place] (1.005-1.035) Urine Protein (<30 mg/dL) mg/dL Urine Glucose (UA) (NEGATIVE) mg/dL Urine Ketones (NEGATIVE) mg/dL Urine Blood (NEGATIVE) Urine Nitrate (NEGATIVE) Urine Bilirubin (NEGATIVE) Urine Urobilinogen (<1 E.U./dL) E.U./dL Ur Leukocyte Esterase (NEGATIVE) Madina/uL Urine RBC (0-2) /hpf Urine WBC (0-6) /hpf Ur Epithelial Cells (0-5) /hpf Urine Bacteria (NEG) Urine Other Laboratory Results - last 24 hr 06/01/18 06/01/18 06/01/18 07:15 09:00 15:00 WBC RBC Hgb Hct MCV MCH MCHC RDW Plt Count Manual Plt Count MPV Gran % Lymph % (Auto) Lares % (Auto) Eos % (Auto) Baso % (Auto) Gran # Lymph # (Auto) Lares # (Auto) Eos # (Auto) Baso # (Auto) Neutrophils % (Manual) Band Neutrophils % Lymphocytes % (Manual) Monocytes % (Manual) Nucleated RBC % Platelet Evaluation Large Platelets Sodium Potassium Chloride Carbon Dioxide Anion Gap BUN Creatinine Est GFR ( Amer) Est GFR (Non-Af Amer) Random Glucose Calcium Phosphorus Magnesium Procalcitonin 0.44 Cortisol AM Sample 23.6 H Urine Color Yellow Urine Appearance Cloudy Urine pH 6.0 Ur Specific [place] 1.025 Urine Protein 30 H Urine Glucose (UA) Negative Urine Ketones Negative Urine Blood Moderate H Urine Nitrate Negative Urine Bilirubin Negative Urine Urobilinogen 0.2 Ur Leukocyte Esterase Small H Urine RBC 1 - 3 Urine WBC 1 - 3 Ur Epithelial Cells 3 - 4 Urine Bacteria Mod Urine Other Uyeast 06/02/18 06/02/18 05:40 05:40 WBC 3.9 L D RBC 3.01 L Hgb 10.0 L Hct 30.5 L MCV 101.3 MCH 33.2 MCHC 32.8 RDW 14.7 H Plt Count 42 L* Manual Plt Count 45 L* MPV 12.5 H Gran % 91.8 H Lymph % (Auto) 7.7 L Lares % (Auto) 0.5 L Eos % (Auto) 0.0 L Baso % (Auto) 0.0 Gran # 3.57 Lymph # (Auto) 0.3 L Lares # (Auto) 0.0 L Eos # (Auto) 0.0 Baso # (Auto) 0.00 Neutrophils % (Manual) 87 H Band Neutrophils % 7 H Lymphocytes % (Manual) 5 L Monocytes % (Manual) 1 Nucleated RBC % 1 Platelet Evaluation Low Large Platelets Present Sodium 141 Potassium 3.8 Chloride 111 H Carbon Dioxide 24 Anion Gap 10 BUN 30 H Creatinine 0.8 Est GFR ( Amer) > 60 Est GFR (Non-Af Amer) > 60 Random Glucose 79 Calcium 9.2 Phosphorus 3.6 Magnesium 2.0 Procalcitonin Cortisol AM Sample Urine Color Urine Appearance Urine pH Ur Specific [place] Urine Protein Urine Glucose (UA) Urine Ketones Urine Blood Urine Nitrate Urine Bilirubin Urine Urobilinogen Ur Leukocyte Esterase Urine RBC Urine WBC Ur Epithelial Cells Urine Bacteria Urine Other Review of Systems - Review of Systems All systems: reviewed and no additional remarkable complaints except (as per HPI ) Critical Care Progress Note - Prophylaxis GI Prophylaxis GI: PPI - Prophylaxis DVT Prophylaxis DVT: SCDs - Nutrition Nutrition: Nutrition Category Date Time Status Heart Healthy Diet [DIET] Diets 05/20/18 Lunch Active Assessment/Plan - Assessment and Plan (Free Text) Assessment: 63 year old female with a PMH of 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 Plan: Neuro: -Maintain normothermia -Home med Memantine for confusion -Levetiracetam for seizure prophylaxis Pulm: -Maintain SpO2 above 90% with HFNC (pt currently on 40% FiO2) -ABG is WNL -Merrem/Zyvox as per ID -Taper Hydrocortisone to 50 mg Q12H -CXR consistent with HCAP, showing multifocal infiltrates; unchanged from prior study Cardio: -Maintain MAP>65mmHg -Therapeutic Lovenox for IVC thrombus -Maintain normotension -Troponin is negative at 0.01 GI: -Protonix for PPX -Home Lubiprostone for constipation -NAC for ALI Heme: -DVT in IVC, treating with Lovenox -Metastatic NSCLC stage 4 with brain metastasis; s/p craniotomy- as per Dr. Carranza -Thrombocytopenia (42) likely due to malignancy and side effect of Zyvox ID: -HCAP-Merrem/Zyvox as per ID -Xopenex for COPD -Procalitonin is 0.44 -Blood culture x2 negative for the past 24 hours Endo: -Maintain euglycemia Renal: -Maintain euvolemia -Replete electrolytes PRN Dispo: Pt is DNR/DNI. Pt stable, on HFNC, has not had episodes of hypoxia; safe and cleared to transfer to med/surg Case reviewed and discussed with attending physician. <Tam Perry - Last Filed: 06/02/18 12:44> CCU Objective - Vital Signs / Intake & Output Intake and Output (Last 8hrs): Intake & Output 06/01/18 06/02/18 06/02/18 22:59 06:59 14:59 Intake Total 1418 920 Output Total 300 100 Balance 1118 820 Intake: IV 1418 920 Right Chest Wall PORT 1418 920 Oral 0 Output: Urine 300 100 Urine, Voided 300 100 Other: # Bowel Movements 1 - Medications Active Medications: Active Medications Generic Name Dose Route Start Last Admin Trade Name Freq PRN Reason Stop Dose Admin Acetylcysteine 3 ml 05/23/18 08:00 06/02/18 07:50 Acetylcysteine 20% INH 3 ml BIDRESP JACQUIE Administration Budesonide 0.5 mg 05/21/18 20:00 06/02/18 07:53 Pulmicort Respules IH 0.5 mg [id number] JACQUIE Administration Enoxaparin Sodium 60 mg 05/22/18 00:13 06/02/18 05:15 Lovenox SC 60 mg 0600,1800 JACQUIE Administration Protocol Ergocalciferol 1 cap 05/27/18 10:00 05/27/18 10:00 Drisdol 50,000 Intl Units Cap PO Not Given Q7D JACQUIE Folic Acid 1 mg 05/21/18 10:00 06/02/18 09:08 Folic Acid PO 1 mg DAILY JACQUIE Administration Hydrocortisone Sodium Succinate 50 mg 06/02/18 22:00 Solu-Cortef IVP Q12 JACQUIE Sodium Chloride 1,000 mls @ 60 mls/hr 06/01/18 07:00 06/01/18 12:26 Sodium Chloride 0.9% IV 60 mls/hr .[id number] JACQUIE Administration Meropenem 50 mls @ 100 mls/hr 06/01/18 10:00 06/02/18 09:07 Merrem Iv 1 Gm Premix IVPB 06/10/18 10:01 100 mls/hr Q12 JACQUIE Administration Protocol Linezolid 600 mg in 300 mls @ 200 mls/hr 06/01/18 10:00 06/02/18 09:09 Zyvox 600mg/300ml D5w IVPB 06/10/18 10:01 200 mls/hr Q12 JACQUIE Administration Protocol Levalbuterol HCl 0.63 mg 05/27/18 10:35 06/02/18 07:53 Xopenex IH 0.63 mg [id number] PRN Administration Shortness of Breath Levetiracetam 500 mg 05/20/18 22:00 06/02/18 09:08 Keppra PO 500 mg Q12 JACQUIE Administration Memantine 10 mg 05/20/18 22:00 06/01/18 21:43 Namenda PO 10 mg HS JACQUIE Administration Non-Formulary Medication 24 mg 05/20/18 18:00 06/02/18 12:35 Lubiprostone [Amitiza] PO Not Given BID JACQUIE Nystatin 5 ml 05/29/18 18:00 06/02/18 09:07 Nystatin Oral Susp PO 5 ml QID JACQUIE Administration Nystatin 1 ea 06/02/18 10:00 Mycostatin Cream TOP TID JACQUIE Pantoprazole Sodium 40 mg 05/21/18 10:00 06/02/18 09:08 Protonix Ec Tab PO 40 mg DAILY JACQUIE Administration Verapamil HCl 2.5 mg 05/27/18 13:03 05/28/18 23:32 Verapamil Inj IVP 2.5 mg Q6H PRN Administration for heart rate >120 - Patient Studies Lab Studies: Microbiology Studies 06/01/18 07:00 Blood Culture - Preliminary Blood NO GROWTH AFTER 24 HOURS 05/27/18 12:50 Blood Culture - Final Blood-Thru Central Line NO GROWTH AFTER 5 DAYS Gram Stain - Final TEST NOT PERFORMED 05/27/18 12:50 Blood Culture - Final Blood-Thru Central Line NO GROWTH AFTER 5 DAYS Gram Stain - Final TEST NOT PERFORMED Lab Studies 06/02/18 06/02/18 06/01/18 Range/Units 05:40 05:40 15:00 WBC 3.9 L D (4.5-11.0) 10^3/ul RBC 3.01 L (3.5-6.1) 10^6/uL Hgb 10.0 L (12.0-16.0) g/dL Hct 30.5 L (36.0-48.0) % MCV 101.3 (80.0-105.0) fl MCH 33.2 (25.0-35.0) pg MCHC 32.8 (31.0-37.0) g/dl RDW 14.7 H (11.5-14.5) % Plt Count 42 L* (120.0-450.0) 10^3/uL Manual Plt Count 45 L* (120-450) K/mm3 MPV 12.5 H (7.0-11.0) fl Gran % 91.8 H (50.0-68.0) % Lymph % (Auto) 7.7 L (22.0-35.0) % Lares % (Auto) 0.5 L (1.0-6.0) % Eos % (Auto) 0.0 L (1.5-5.0) % Baso % (Auto) 0.0 (0.0-3.0) % Gran # 3.57 (1.4-6.5) Lymph # (Auto) 0.3 L (1.2-3.4) Lares # (Auto) 0.0 L (0.1-0.6) Eos # (Auto) 0.0 (0.0-0.7) Baso # (Auto) 0.00 (0.0-2.0) K/mm3 Neutrophils % (Manual) 87 H (50.0-70.0) % Band Neutrophils % 7 H (0-2) % Lymphocytes % (Manual) 5 L (22.0-35.0) % Monocytes % (Manual) 1 (1.0-6.0) % Nucleated RBC % 1 % Platelet Evaluation Low (NORMAL) Large Platelets Present Sodium 141 (132-148) mmol/L Potassium 3.8 (3.6-5.0) mmol/L Chloride 111 H (98-107) mmol/L Carbon Dioxide 24 (21-33) mmol/L Anion Gap 10 (10-20) BUN 30 H (7-21) mg/dL Creatinine 0.8 (0.7-1.2) mg/dl Est GFR ( Amer) > 60 Est GFR (Non-Af Amer) > 60 Random Glucose 79 (70-110) mg/dL Calcium 9.2 (8.4-10.5) mg/dL Phosphorus 3.6 (2.5-4.5) mg/dL Magnesium 2.0 (1.7-2.2) mg/dL Procalcitonin (0.19-0.49) NG/ML Urine Color Yellow (YELLOW) Urine Appearance Cloudy (CLEAR) Urine pH 6.0 (4.7-8.0) Ur Specific [place] 1.025 (1.005-1.035) Urine Protein 30 H (<30 mg/dL) mg/dL Urine Glucose (UA) Negative (NEGATIVE) mg/dL Urine Ketones Negative (NEGATIVE) mg/dL Urine Blood Moderate H (NEGATIVE) Urine Nitrate Negative (NEGATIVE) Urine Bilirubin Negative (NEGATIVE) Urine Urobilinogen 0.2 (<1 E.U./dL) E.U./dL Ur Leukocyte Esterase Small H (NEGATIVE) Madina/uL Urine RBC 1 - 3 (0-2) /hpf Urine WBC 1 - 3 (0-6) /hpf Ur Epithelial Cells 3 - 4 (0-5) /hpf Urine Bacteria Mod (NEG) Urine Other Uyeast 06/01/18 Range/Units 09:00 WBC (4.5-11.0) 10^3/ul RBC (3.5-6.1) 10^6/uL Hgb (12.0-16.0) g/dL Hct (36.0-48.0) % MCV (80.0-105.0) fl MCH (25.0-35.0) pg MCHC (31.0-37.0) g/dl RDW (11.5-14.5) % Plt Count (120.0-450.0) 10^3/uL Manual Plt Count (120-450) K/mm3 MPV (7.0-11.0) fl Gran % (50.0-68.0) % Lymph % (Auto) (22.0-35.0) % Lares % (Auto) (1.0-6.0) % Eos % (Auto) (1.5-5.0) % Baso % (Auto) (0.0-3.0) % Gran # (1.4-6.5) Lymph # (Auto) (1.2-3.4) Lares # (Auto) (0.1-0.6) Eos # (Auto) (0.0-0.7) Baso # (Auto) (0.0-2.0) K/mm3 Neutrophils % (Manual) (50.0-70.0) % Band Neutrophils % (0-2) % Lymphocytes % (Manual) (22.0-35.0) % Monocytes % (Manual) (1.0-6.0) % Nucleated RBC % % Platelet Evaluation (NORMAL) Large Platelets Sodium (132-148) mmol/L Potassium (3.6-5.0) mmol/L Chloride (98-107) mmol/L Carbon Dioxide (21-33) mmol/L Anion Gap (10-20) BUN (7-21) mg/dL Creatinine (0.7-1.2) mg/dl Est GFR ( Amer) Est GFR (Non-Af Amer) Random Glucose (70-110) mg/dL Calcium (8.4-10.5) mg/dL Phosphorus (2.5-4.5) mg/dL Magnesium (1.7-2.2) mg/dL Procalcitonin 0.44 (0.19-0.49) NG/ML Urine Color (YELLOW) Urine Appearance (CLEAR) Urine pH (4.7-8.0) Ur Specific [place] (1.005-1.035) Urine Protein (<30 mg/dL) mg/dL Urine Glucose (UA) (NEGATIVE) mg/dL Urine Ketones (NEGATIVE) mg/dL Urine Blood (NEGATIVE) Urine Nitrate (NEGATIVE) Urine Bilirubin (NEGATIVE) Urine Urobilinogen (<1 E.U./dL) E.U./dL Ur Leukocyte Esterase (NEGATIVE) Madina/uL Urine RBC (0-2) /hpf Urine WBC (0-6) /hpf Ur Epithelial Cells (0-5) /hpf Urine Bacteria (NEG) Urine Other Laboratory Results - last 24 hr 06/01/18 06/01/18 06/02/18 09:00 15:00 05:40 WBC 3.9 L D RBC 3.01 L Hgb 10.0 L Hct 30.5 L MCV 101.3 MCH 33.2 MCHC 32.8 RDW 14.7 H Plt Count 42 L* Manual Plt Count 45 L* MPV 12.5 H Gran % 91.8 H Lymph % (Auto) 7.7 L Lares % (Auto) 0.5 L Eos % (Auto) 0.0 L Baso % (Auto) 0.0 Gran # 3.57 Lymph # (Auto) 0.3 L Lares # (Auto) 0.0 L Eos # (Auto) 0.0 Baso # (Auto) 0.00 Neutrophils % (Manual) 87 H Band Neutrophils % 7 H Lymphocytes % (Manual) 5 L Monocytes % (Manual) 1 Nucleated RBC % 1 Platelet Evaluation Low Large Platelets Present Sodium Potassium Chloride Carbon Dioxide Anion Gap BUN Creatinine Est GFR ( Amer) Est GFR (Non-Af Amer) Random Glucose Calcium Phosphorus Magnesium Procalcitonin 0.44 Urine Color Yellow Urine Appearance Cloudy Urine pH 6.0 Ur Specific [place] 1.025 Urine Protein 30 H Urine Glucose (UA) Negative Urine Ketones Negative Urine Blood Moderate H Urine Nitrate Negative Urine Bilirubin Negative Urine Urobilinogen 0.2 Ur Leukocyte Esterase Small H Urine RBC 1 - 3 Urine WBC 1 - 3 Ur Epithelial Cells 3 - 4 Urine Bacteria Mod Urine Other Uyeast 06/02/18 05:40 WBC RBC Hgb Hct MCV MCH MCHC RDW Plt Count Manual Plt Count MPV Gran % Lymph % (Auto) Lares % (Auto) Eos % (Auto) Baso % (Auto) Gran # Lymph # (Auto) Lares # (Auto) Eos # (Auto) Baso # (Auto) Neutrophils % (Manual) Band Neutrophils % Lymphocytes % (Manual) Monocytes % (Manual) Nucleated RBC % Platelet Evaluation Large Platelets Sodium 141 Potassium 3.8 Chloride 111 H Carbon Dioxide 24 Anion Gap 10 BUN 30 H Creatinine 0.8 Est GFR ( Amer) > 60 Est GFR (Non-Af Amer) > 60 Random Glucose 79 Calcium 9.2 Phosphorus 3.6 Magnesium 2.0 Procalcitonin Urine Color Urine Appearance Urine pH Ur Specific [place] Urine Protein Urine Glucose (UA) Urine Ketones Urine Blood Urine Nitrate Urine Bilirubin Urine Urobilinogen Ur Leukocyte Esterase Urine RBC Urine WBC Ur Epithelial Cells Urine Bacteria Urine Other Critical Care Progress Note - Nutrition Nutrition: Nutrition Category Date Time Status Heart Healthy Diet [DIET] Diets 05/20/18 Lunch Active Assessment/Plan - Assessment and Plan (Free Text) Plan: Patient seen and examined on rounds with resident, agree with note with following additions/exceptions: Patient is 63yo female with PMHx of NSLC with mets, presented with hypoxia and hypotension. [place]pot[place] has [place]. Patient is weaning down on FiO2, to 40%, clinically improving. Afebrile, BP stable. Pneumonitis r/o PNA Hypoxia Sepsis Lung Ca with mets Recommend: - cont with high flow O2, titrated down to VM50% - duonebs PRN - Antibiotics as per ID - Steroids solucortef - IVF - hold BP meds - monitor LFTs - FS control - Keppra - monitor platelets - GI ppx - DVT ppx - transfer to floor
[2018-06-02] MEDS: Nystatin 100,000 Units/gm Cream(15 gm) TOP SCH ×3 (10:30→17:31)
--- NOTE | 2018-06-02 11:03 | PN ---
DATE: 06/02/2018 LOCATION: The patient in CCU, bed 129-6. REASON FOR CONSULTATION: Non-small cell carcinoma with metastasis to brain, status post craniotomy and chemotherapy, COPD, hypertension, lung infiltrates, episode of hypotension and renal dysfunction. SUBJECTIVE: The patient is lying comfortably in bed without chest pain, shortness of breath, palpitation. PHYSICAL EXAMINATION: VITAL SIGNS: Blood pressure 106/67, respirations 17, pulse 69, temperature 98.8. HEENT: Head is normocephalic. Eyes: Pupils normal. Conjunctivae slightly pale. NECK: JVP low. Carotids equal. THORAX: AP diameter normal. LUNGS: No rales. CARDIOVASCULAR: S1 and S2. ABDOMEN: Soft. No tenderness. No organomegaly. EXTREMITIES: No clubbing. No cyanosis. LABORATORY DATA: WBC 3.9, hemoglobin 10, hematocrit 30.5, platelet 42. Sodium 141, potassium 3.8, BUN 30, creatinine 0.8, calcium 9.2, phosphorus 3.6, magnesium 2. BUN yesterday was 53 with creatinine 1.2. Today's BUN 30 with creatinine 0.8 with IV fluid, showed improvement and blood pressure also improved. 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 PLAN: Due to episode of hypotension yesterday, beta glenroy is on hold. BUN and creatinine showing improved as compared before and so is the blood pressure. The patient on IV fluids normal saline 60 mL and hour. Also getting hydrocortisone, Protonix, meropenem IV 50 mL every 12 hours, Lovenox 60 mg subcu b.i.d., Keppra 500 mg p.o. every 12 hours, folic acid 1 mg daily, linezolid 600 mg IV every 12 hours. Continue gentle hydration. We will continue to monitor with you and follow. Chica Fang MD
[2018-06-02] MEDS ORDERED: Potassium Chloride 20 mEq ER Tab PO ONE (11:18)
[2018-06-02] MEDS: LUBIPROSTONE 24 MG PO SCH ×2 (12:35→19:36)
--- NOTE | 2018-06-02 13:19 | CP.PCM.PN ---
Subjective - Date & Time of Evaluation Date of Evaluation: 06/02/18 Time of Evaluation: 07:10 - Subjective Subjective: Chris Browning DO, PGY-1: Hospitalist Service Patient seen and examined at bedside. Patient denies any chest pain, dyspnea, palpitations, fever or chills. Nurse reports no adverse events overnight. Notable events in the interim are that the patient became a DNR/DNI. Zyvox was discontinued per ID. Palliative care is on board. ICU team also reports that patient is to be transferred to Medical Surgical Floor. Objective - Vital Signs/Intake and Output Vital Signs (last 24 hours): Temp Pulse Resp BP Pulse Ox 98.8 F 69 17 106/67 100 06/02/18 06:00 06/02/18 06:00 06/02/18 06:00 06/02/18 06:00 06/02/18 06:00 Intake and Output: 06/02/18 06/02/18 06:59 18:59 Intake Total 920 Output Total 100 Balance 820 - Medications Medications: Current Medications Acetylcysteine (Acetylcysteine 20%) 3 ml INH BIDRESP [facility] Last Admin: 06/02/18 07:50 Dose: 3 ml Budesonide (Pulmicort Respules) 0.5 mg IH [id number] [facility] Last Admin: 06/02/18 07:53 Dose: 0.5 mg Enoxaparin Sodium (Lovenox) 60 mg SC 0600,1800 [facility] PRN Reason: Protocol Last Admin: 06/02/18 05:15 Dose: 60 mg Ergocalciferol (Drisdol 50,000 Intl Units Cap) 1 cap PO Q7D [facility] Last Admin: 05/27/18 10:00 Dose: Not Given Folic Acid (Folic Acid) 1 mg PO DAILY [facility] Last Admin: 06/02/18 09:08 Dose: 1 mg Hydrocortisone Sodium Succinate (Solu-Cortef) 50 mg IVP Q12 [facility] Sodium Chloride (Sodium Chloride 0.9%) 1,000 mls @ 60 mls/hr IV .[id number] [facility] Last Admin: 06/01/18 12:26 Dose: 60 mls/hr Meropenem (Merrem Iv 1 Gm Premix) 50 mls @ 100 mls/hr IVPB Q12 [facility] PRN Reason: Protocol Stop: 06/10/18 10:01 Last Admin: 06/02/18 09:07 Dose: 100 mls/hr Linezolid (Zyvox 600mg/300ml D5w) 600 mg in 300 mls @ 200 mls/hr IVPB Q12 [facility] PRN Reason: Protocol Stop: 06/10/18 10:01 Last Admin: 06/02/18 09:09 Dose: 200 mls/hr Levalbuterol HCl (Xopenex) 0.63 mg IH [id number] PRN PRN Reason: Shortness of Breath Last Admin: 06/02/18 07:53 Dose: 0.63 mg Levetiracetam (Keppra) 500 mg PO Q12 [facility] Last Admin: 06/02/18 09:08 Dose: 500 mg Memantine (Namenda) 10 mg PO HS [facility] Last Admin: 06/01/18 21:43 Dose: 10 mg Non-Formulary Medication (Lubiprostone [Amitiza]) 24 mg PO BID [facility] Last Admin: 06/02/18 12:35 Dose: Not Given Nystatin (Nystatin Oral Susp) 5 ml PO QID [facility] Last Admin: 06/02/18 09:07 Dose: 5 ml Nystatin (Mycostatin Cream) 1 ea TOP TID [facility] Last Admin: 06/02/18 10:30 Dose: 1 applic Pantoprazole Sodium (Protonix Ec Tab) 40 mg PO DAILY [facility] Last Admin: 06/02/18 09:08 Dose: 40 mg Verapamil HCl (Verapamil Inj) 2.5 mg IVP Q6H PRN PRN Reason: for heart rate >120 Last Admin: 05/28/18 23:32 Dose: 2.5 mg - Labs Labs: 06/02/18 05:40 06/02/18 05:40 PT 12.8 SECONDS (9.4-12.5) H 05/20/18 10:45 INR 1.11 (0.93-1.08) H 05/20/18 10:45 APTT 24.7 Seconds (25.1-36.5) L 05/20/18 10:45 - Constitutional Appears: Well, Non-toxic - Head Exam Additional comments: 5 inch scar running horizontally - Eye Exam Eye Exam: EOMI, Normal appearance - ENT Exam ENT Exam: Mucous Membranes Moist - Neck Exam Neck Exam: Normal Inspection - Respiratory Exam Respiratory Exam: Rales. absent: Accessory Muscle Use Additional comments: on FIO2 of 40-45% - Cardiovascular Exam Cardiovascular Exam: RRR, +S1, +S2 - GI/Abdominal Exam GI & Abdominal Exam: Soft, Normal Bowel Sounds - Extremities Exam Extremities Exam: Normal Inspection. absent: Calf Tenderness - Back Exam Back Exam: NORMAL INSPECTION. 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 CT/MRI of the head were negative. Patient was She was found to have multifocal infiltrates consistent with healthcare-asssocaited pneumonia and sepsis requiring ICU admission. Patient started on broad-spectrum anabiotics stress dose steroids, and Keppra For seizure prophylaxis, high flow oxygen with humidified 40-45% FiO2, and therapeutic dose of Lovenox for partial thrombosis of IVC. Patient has improved overall, clinically, mental status has improved. Patients blood cell indicies show a progressive pancytopenia. Today, ID discontinued Zyvox. Furthermore, ICU also downgraded patient to Medical/surgical floor and she has become DNR and DNI. We will continue to check daily manual platelet counts and have further discussion with the patient in regards to her treatment goals. Discussed with Dr. Dillon Browning PGY2
--- NOTE | 2018-06-02 16:44 | PN ---
DATE: 06/02/2018 SUBJECTIVE: The patient is seen early this morning in the ICU, in CCU 129, bed 6. She is awake. She is responsive. Had no fevers and no chills, was transferred to the unit because of hypotension. PHYSICAL EXAMINATION: VITAL SIGNS: On exam, temperature is 98 and blood pressure is 106/60, respiratory rate of 18, heart rate of 76. HEENT: Examination of HEENT is unremarkable. NECK: Supple. LUNGS: Have decreased breath sounds. HEART: Normal S1, S2. ABDOMEN: Soft, nontender. LABORATORY DATA: Laboratory examination reveals a white count of 3.9, hemoglobin of 10, platelets of 42. Coagulation is noted and chemistries reveals a BUN of 30, creatinine of 0.8, procalcitonin 0.44 from yesterday. Urinalysis from yesterday is unremarkable. Serology for urine Legionella antigen is negative. Microbiology reveals the blood cultures no growth from yesterday. Urine cultures from 05/27/2018 are no growth. Review of orders reveals the patient to be on meropenem, Solu-Cortef, Zyvox. 's note is reviewed from today. Dr. Darby' s note is reviewed from yesterday, Dr. Fang's note is reviewed. Dr. Palmer's note is reviewed. ASSESSMENT AND PLAN: This is a 63-year-old female with severe sepsis secondary to healthcare-associated pneumonia in a patient with non-small cell lung cancer, metastasis to the brain, had a history of craniotomy, was transferred to unit because of hypotension and shortness of breath with severe sepsis secondary to healthcare-associated pneumonia with negative blood cultures, negative urinalysis, negative procalcitonin, on Zyvox and meropenem. The patient appears to be improving, day #2 of Zyvox and meropenem, would complete with short course of antibiotics for 7 days. Overall prognosis quite poor for this patient Serge Kruse MD
[2018-06-02] MEDS: Sodium Chloride 0.9% 1,000 ML IV SCH (20:40)
--- NOTE | 2018-06-03 03:39 | PN ---
DATE: 06/02/2018 PULMONARY PROGRESS NOTE REFERRING PHYSICIAN: Yaneth Darby MD. SUBJECTIVE: She was seen in intensive care unit, on high flow oxygen and 40% supplemental oxygen. Night was unremarkable. Feels much better. Much more awake and alert. No hemoptysis, hematemesis, hematuria. No diarrhea. No leg swelling reported. OBJECTIVE: GENERAL: No acute distress. VITAL SIGNS: Temperature is 98, heart rate is 128, respiratory rate is 29, blood pressure is 126/89, pulse ox 98% on high flow nasal cannula. HEENT: Moist mucous membrane. Crowded airway. NECK: Supple. No JVD. LUNGS: Have scattered rhonchi. HEART: S1 and S2. ABDOMEN: Soft, nontender. No organomegaly. EXTREMITIES: No edema. NEUROLOGICAL: Awake, alert. Follows simple command. MEDICATIONS: She is on Mucomyst 20% inhaled twice a day, vitamin D weekly, folic acid 1 mg daily, Keppra 500 mg twice a day, Lovenox 60 mg subcu twice a day, Amitiza 24 mcg twice a day, meropenem 1 g every 12 hours, Namenda 10 mg at bedtime, Protonix 40 mg daily, Pulmicort inhaled twice a day, IV fluid normal saline 60 mL/hour, Solu-Cortef 50 mg twice daily, verapamil 2.5 mg every 6 hours p.r.n., Xopenex inhaled every 6 hours p.r.n., Zyvox 600 mg twice a day. LABORATORY DATA: Shows hemoglobin 10, hematocrit 30.5, WBC 3.9, platelet is 42. Sodium 141, potassium 2.8, chloride 111, bicarbonate 24, BUN 30, creatinine 0.8, glucose 79, calcium 9.2, phosphorus 3.6, magnesium 2.0. Microbiology, blood culture, urine culture, nares cultures unremarkable since yesterday. IMPRESSION AND PLAN: Sepsis, pulmonary infiltrate, chronic lung disease, non-small cell lung cancer with metastatic disease to the brain and bone, history of craniectomy, pulmonary hypertension, persistent tachycardia, hypoxemia, may have adrenal insufficiency. Case discussed with spinneret cleaner. The patient is on high-flow oxygen. Continue bronchodilator, broad-spectrum antibiotics. Continue steroids. Watch for heart failure. No LV function is good. Follow up labs in the morning. Noted, the patient is made DNR and we will follow with you. Chica Palmer MD
[2018-06-03] MEDS ORDERED: Morphine 2 mg/2 mL syringe IVP STA (03:52)
[2018-06-03] MEDS: Enoxaparin 60 mg Syringe SC SCH ×2 (05:37→18:14)
[2018-06-03] MEDS: Levalbuterol 0.63 MG/3 ML Inhal Soln UD IH PRN ×2 (07:00→20:30)
[2018-06-03] MEDS: Budesonide 0.5 mg/2 ml Inhal Susp UD IH SCH ×2 (07:00→20:30)
[2018-06-03] MEDS: Acetylcysteine 20% Inhal Soln (4ml) INH SCH ×2 (07:00→20:30)
--- NOTE | 2018-06-03 07:24 | CP.PCM.PN ---
Subjective - Date & Time of Evaluation Date of Evaluation: 06/03/18 Time of Evaluation: 07:24 - Subjective Subjective: Chris Browning DO, PGY-2: Hematology and Oncology note for Dr. Carranza Patient seen and examined in ICU bed 129-6. Patient is on high flow oxygen and denies any dyspnea, chest pain, diarrhea, nausea or vomiting. Nurse reports no events overnight. At 8:15 patient complained of generalized pain per nursing noted with a HR in the 140-150. Dr. Simon was paged and the ordered for Morphine 4mg, Verapamil and metroprolol. Objective - Vital Signs/Intake and Output Vital Signs (last 24 hours): Temp Pulse Resp BP Pulse Ox 97.9 F 122 H 24 128/70 95 06/02/18 12:00 06/03/18 06:30 06/03/18 07:04 06/03/18 06:00 06/03/18 06:30 Intake and Output: 06/03/18 06/03/18 06:59 18:59 Intake Total 1085 Balance 1085 - Medications Medications: Current Medications Acetylcysteine (Acetylcysteine 20%) 3 ml INH BIDRESP [facility] Last Admin: 06/03/18 07:00 Dose: 3 ml Budesonide (Pulmicort Respules) 0.5 mg IH [id number] [facility] Last Admin: 06/03/18 07:00 Dose: 0.5 mg Enoxaparin Sodium (Lovenox) 60 mg SC 0600,1800 [facility] PRN Reason: Protocol Last Admin: 06/03/18 05:37 Dose: 60 mg Ergocalciferol (Drisdol 50,000 Intl Units Cap) 1 cap PO Q7D [facility] [place] Last Admin: 05/27/18 10:00 Dose: Not Given Folic Acid (Folic Acid) 1 mg PO DAILY [facility] [place] Last Admin: 06/02/18 09:08 Dose: 1 mg Hydrocortisone Sodium Succinate (Solu-Cortef) 50 mg IVP Q12 [facility] Last Admin: 06/02/18 21:17 Dose: 50 mg Sodium Chloride (Sodium Chloride 0.9%) 1,000 mls @ 60 mls/hr IV .[id number] [facility] [place] Last Admin: 06/02/18 20:40 Dose: Not Given Meropenem (Merrem Iv 1 Gm Premix) 50 mls @ 100 mls/hr IVPB Q12 [facility] PRN Reason: Protocol Stop: 06/10/18 10:01 Last Admin: 06/02/18 21:16 Dose: 100 mls/hr Linezolid (Zyvox 600mg/300ml D5w) 600 mg in 300 mls @ 200 mls/hr IVPB Q12 [facility] PRN Reason: Protocol Stop: 06/10/18 10:01 Last Admin: 06/02/18 21:16 Dose: 200 mls/hr Levalbuterol HCl (Xopenex) 0.63 mg IH [id number] PRN PRN Reason: Shortness of Breath Last Admin: 06/03/18 07:00 Dose: 0.63 mg Levetiracetam (Keppra) 500 mg PO Q12 [facility] [place] Last Admin: 06/02/18 21:16 Dose: 500 mg Memantine (Namenda) 10 mg PO HS [facility] [place] Last Admin: 06/02/18 21:17 Dose: 10 mg Non-Formulary Medication (Lubiprostone [Amitiza]) 24 mg PO BID [facility] [place] Last Admin: 06/02/18 19:36 Dose: Not Given Nystatin (Nystatin Oral Susp) 5 ml PO QID [facility] [place] Last Admin: 06/02/18 21:17 Dose: 5 ml Nystatin (Mycostatin Cream) 1 ea TOP TID [facility] Last Admin: 06/02/18 17:31 Dose: 1 applic Pantoprazole Sodium (Protonix Ec Tab) 40 mg PO DAILY [facility] Last Admin: 06/02/18 09:08 Dose: 40 mg Verapamil HCl (Verapamil Inj) 2.5 mg IVP Q6H PRN PRN Reason: for heart rate >120 Last Admin: 05/28/18 23:32 Dose: 2.5 mg - Labs Labs: 06/02/18 05:40 06/02/18 05:40 PT 12.8 SECONDS (9.4-12.5) H 05/20/18 10:45 INR 1.11 (0.93-1.08) H 05/20/18 10:45 APTT 24.7 Seconds (25.1-36.5) L 05/20/18 10:45 Assessment and Plan - Assessment and Plan (Free Text) Assessment: 63 year-old female with a past medical history of 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 CT/MRI of the head were negative. Patient was She was found to have multifocal infiltrates consistent with healthcare-asssocaited pneumonia and sepsis requiring ICU admission. Patient started on broad-spectrum anabiotics stress dose steroids, and Keppra For seizure prophylaxis, high flow oxygen with humidified 40-45% FiO2, and therapeutic dose of Lovenox for partial thrombosis of IVC. Patient has improved overall, clinically, mental status has improved. Patients blood cell indicies show a progressive pancytopenia. Today, ID discontinued Zyvox\ and switched to Solumedrol 40 mg q8h [facility]. Furthermore, ICU also downgraded patient to Medical/ surgical floor and she has become DNR and DNI. We will continue to check daily manual platelet counts as well as CBC with differential and comprehensive metabolic panel. Discussed with Dr. Dillon Browning PGY2
[2018-06-03] MEDS ORDERED: MethylPREDNISolone 40 mg Vial IVP SCH (08:00)
--- NOTE | 2018-06-03 08:04 | PN ---
DATE: 06/02/2018 SUBJECTIVE: The patient was seen and examined on the bedside on 06/02/2018. Daughter was standing on the bedside also. Having high-flow nasal cannula. No new complaints. No chest pain. No palpitation. No fever. No chest pain. No dyspnea. No palpitation. PHYSICAL EXAMINATION: VITAL SIGNS: Temperature 98.8, pulse 69, respiratory rate 17, blood pressure 106/67, pulse oximetry 100. HEENT: Head normocephalic, atraumatic. Eyes PERRLA. Extraocular muscles intact. Conjunctivae clear. Nose patent. NECK: Supple. No carotid bruit. No JVD or thyromegaly. CHEST: Bilaterally symmetrical. HEART: S1 and S2 positive. LUNGS: Positive wheezing bilaterally. ABDOMEN: Soft. Bowel sounds positive. No organomegaly. EXTREMITIES: No edema. No cyanosis. NEUROLOGICAL: The patient is awake and alert. Moving all 4 extremities. No focal deficits. MEDICATIONS: Acetylcysteine, Pulmicort, Lovenox, vitamin D, folic acid, Solu-Cortef, Merrem, Zyvox, Keppra, Namenda, Amitiza, nystatin, Protonix, verapamil. LABORATORY DATA: White blood cells 3.9, hemoglobin 10, hematocrit 30.5, platelets 242. Sodium 141, potassium 3.8, BUN 30, creatinine 0.8, glucose 79. ASSESSMENT AND PLAN: Ms. Nicol Brannon, 63-year-old lady with leukopenia, anemia, thrombocytopenia, hyperchloremia with history of metastatic non-small cell lung cancer with metastasis to the brain, status post craniotomy. Has episodes of confusion, fever and dyspnea. MRI of the head and CT scan of the chest done, reviewed by me. Found the patient to have multiple infiltrates consistent with healthcare-associated pneumonia and sepsis requiring Intensive Care Unit admission. The patient was started on broad-spectrum antibiotics, test doses of steroid and Keppra for seizure prophylaxis. High-flow oxygen given. Getting Lovenox. Overall, the patient improved clinically. Mental status was improved with partial thrombosis of inferior vena cava. I tried to talk to the patient's daughter. She was on the bedside. The patient is DNR and DNI. As per Dr. Villegas's information, continue Zyvox and furosemide. Gastrointestinal, deep venous thrombosis prophylaxis. Repeat labs. We will follow up. Yaneth Darby MD [facility] # [id number] [place]
[2018-06-03] MEDS: Morphine 4 mg/ml ISec IVP PRN (08:27)
[2018-06-03] MEDS: MethylPREDNISolone 40 mg Vial IVP SCH ×3 (08:29→21:50)
[2018-06-03] MEDS ORDERED: Potassium Chloride 20 mEq ER Tab PO ONE (09:14)
[2018-06-03] MEDS: Nystatin 100,000 Units/ml Oral Susp 5 ml UD PO SCH ×4 (09:35→21:50)
[2018-06-03] MEDS: Meropenem IV 1 gm in NS 50 ML IVPB SCH ×2 (09:56→21:50)
[2018-06-03] MEDS: Pantoprazole 40 mg EC Tab PO SCH (09:57)
[2018-06-03] MEDS: Nystatin 100,000 Units/gm Cream(15 gm) TOP SCH ×3 (10:05→18:13)
[2018-06-03] MEDS: Ergocalciferol 50,000 Intl Units Cap PO SCH (10:14)
--- NOTE | 2018-06-03 10:23 | CARD ---
APPROVED REPORT EKG Measurement Heart [id number] <Conclusion> Sinus tachycardia Possible Left atrial enlargement Leftward axis NSSTW changes
--- NOTE | 2018-06-03 10:33 | PN ---
DATE: 06/03/2018 SUBJECTIVE: The patient is seen early this morning in 129, bed 6. No fevers and no chills. She is responsive. She had periods of confusion last night, however, per the nurse. PHYSICAL EXAMINATION: VITAL SIGNS: Temperature is 97, blood pressure is 128/70, respiratory rate of 18, heart rate of 123. Respiratory rate was up to 24. HEENT: Examination of HEENT is unremarkable. NECK: Supple. LUNGS: Have decreased breath sounds. HEART: Normal S1 and S2. ABDOMEN: Soft, nontender. LABORATORY DATA: Laboratory examination reveals the patient's white count is 3.9 and hemoglobin of 10, platelets of 42. Chemistries are noted. BUN of 30, creatinine of 1.2, it is down to 0.8. Urinalysis is noted. The patient's procalcitonin is 0.44. As a matter of fact, she has never had an elevated procalcitonin in her hospitalization. Review of orders reveals the patient to be on meropenem, Solu-Medrol. Microbiology reveals the patient's cultures are negative. Nares MRSA is not detected. The urine culture has multiple organisms. Dr. Isac Browning's note is reviewed from today, which is not completed yet so far. Dr. Darby's progress note is reviewed from today. ASSESSMENT AND PLAN: This is a 63-year-old female, seen early this morning in 129, bed 6 CCU with severe sepsis secondary to healthcare-associated pneumonia and non-small cell lung cancer, metastasis to the brain with a history of craniotomy and admitted with severe sepsis secondary to healthcare-associated pneumonia. Negative procalcitonin. Negative pancultures. Negative methicillin-resistant Staphylococcus aureus screen. We will discontinue the Zyvox. Day #3 of meropenem. The patient did have some complaint of abdominal pain today. Left lower abdominal pain. The patient did have a CAT scan of the abdomen and pelvis on 05/28/2018 with no significant findings in the abdomen. Overall prognosis is quite poor. Serge Kruse MD
[2018-06-03] MEDS: LUBIPROSTONE 24 MG PO SCH ×2 (12:32→18:15)
--- NOTE | 2018-06-03 13:37 | PN ---
DATE: 06/03/2018 REASON FOR THE CONSULTATION AND FOLLOWUP: Non-small cell cancer with metastasis to the brain, status post craniotomy, chemotherapy; COPD; hypertension; lung infiltrate; tachycardia; hypertension; cardiac evaluation. SUBJECTIVE: The patient denies any chest pain, denies any shortness of breath, denies any palpitations. States feels better today. PHYSICAL EXAMINATION: GENERAL: Not in any apparent distress. VITAL SIGNS: Heart rate 122, sinus tachycardia; blood pressure 130/70. HEENT: PERRLA. Extraocular muscles intact. NECK: Supple. No carotid bruit or thyromegaly. CHEST: Clear to auscultation. HEART: S1, S2 regular. ABDOMEN: Soft. EXTREMITIES: Clubbing and cyanosis negative. LABORATORY DATA: Blood workup: WBC is 3.9, hemoglobin 10, hematocrit 30.5, platelet count 51. Chemistry shows sodium 141, potassium 3.8, chloride 111, carbon dioxide 24, anion gap of 10, BUN 30, creatinine 0.8. The patient has also echocardiography done on 05/29/2018 that showed ejection fraction 60% to 65%, trace mitral regurgitation, mild tricuspid regurgitation, RV systolic pressure of 45, no pericardial effusion or vegetation. IMPRESSION: A 63-year-old female with past medical history of non-small cancer with metastasis to the brain, status post craniotomy and chemotherapy; history of chronic obstructive pulmonary disease; nonsmoker; hypertension; history of inferior vena cava thrombosis; came to the ER with shortness of breath and tachycardia, initially admitted to the floor, had a rapid response, moved to ICU. Sinus tachycardia is multifactorial, heart rate between 130. Anemia, thrombocytopenia, pulmonary infiltrate. As mentioned, tachycardia is multifactorial, secondary to anemia, underlying cancer of lung as well as pneumonia. RECOMMENDATIONS: Supplement potassium, continue low-dose beta glenroy. The patient is on Lovenox for IVC thrombosis. We will start verapamil 2.5 every 6 hours p.r.n. We will start verapamil p.o. too to control the heart rate. We will follow with you. Continue broad-spectrum antibiotic. We will supplement potassium. The patient had been supplemented potassium yesterday , today's lab is not available. Thank you, Dr. Darby, for providing us the opportunity in taking care of the patient, Clovis Camarena. The patient's condition is critical, long-term prognosis is extremely poor and guarded. Chica Simon MD
[2018-06-03] MEDS: Sodium Chloride 0.9% 1,000 ML IV SCH (14:45)
[2018-06-03 18:45] LABS: BASO # 0.01 K/mm3 (0.0-2.0); BASO % 0.2 % (0.0-3.0); GRAN # 4.82 (1.4-6.5); GRAN % 94.3 % (50.0-68.0); HEMOGLOBIN 10.4 g/dL (12.0-16.0); LYMPH # 0.2 (1.2-3.4); LYMPH % 4.7 % (22.0-35.0); MEAN CELL VOLUME 98.1 fl (80.0-105.0); MEAN CORPUSCULAR HEMOGLOBIN 33.3 pg (25.0-35.0); MONO % 0.8 % (1.0-6.0); RBC 3.12 10^6/uL (3.5-6.1); RED CELL DISTRIBUTION WIDTH 14.7 % (11.5-14.5); WHITE BLOOD COUNT 5.1 10^3/ul (4.5-11.0)
[2018-06-03 18:58] LABS: ALB/GLOB RATIO 0.8 (1.1-1.8); ALBUMIN 2.4 g/dL (3.0-4.8); ALT/SGPT 32 U/L (7-56); AST/SGOT 64 U/L (14-36); BLOOD UREA NITROGEN 22 mg/dL (7-21); CALCIUM 8.9 mg/dL (8.4-10.5); GFR AFRICAN-AMERICAN > 60; GFR NON-AFRICAN AMERICAN > 60
[2018-06-03 19:07] LABS: PLATELET COUNT 40 10^3/uL (120.0-450.0)
[2018-06-03 19:19] LABS: PLATELET ESTIMATE 42 (NORMAL)
--- NOTE | 2018-06-03 20:38 | PN ---
DATE: 06/03/2018 PULMONARY PROGRESS NOTE REFERRING PHYSICIAN: Yaneth Darby MD. LOCATION: The patient is seen in the Intensive Care Unit. SUBJECTIVE: She is lying in the bed, still sleepy, tired. Overnight events noted, was tachypneic and tachycardic. Still on a high-flow nasal cannula oxygen, 40% oxygen. No hemoptysis. No hematemesis. No hematuria. No diarrhea reported. OBJECTIVE: GENERAL: Mild distress. VITAL SIGNS: Temp is 98, heart rate is 87, respiratory rate is 20, blood pressure 105/73, pulse ox 92% on high-flow oxygen, 40% oxygen. HEENT: Moist mucous membrane. Crowded airway. NECK: Supple. No JVD. LUNGS: Have scattered rhonchi. HEART: S1 and S2. ABDOMEN: Soft, nontender. No organomegaly. EXTREMITIES: There is trace edema. NEUROLOGICAL: Awake and alert. Follows simple command. LABORATORY DATA: Shows platelets today is 51. Troponin is 0.05. MEDICATIONS: She is on Mucomyst 20% inhaled twice a day, verapamil 40 mg three times a day, vitamin D 50,000 units every 7 days, folic acid 1 mg daily, Keppra 500 mg twice a day, metoprolol tartrate 75 mg twice a day, Lovenox 60 mg twice a day, Amitiza 24 mcg twice a day, meropenem 1 g IV every 12 hours, morphine 4 mg every 4 hours p.r.n., nystatin to affected area three times a day, Namenda 10 mg at bedtime, nystatin oral 5 mL four times a day, Protonix 40 mg daily, Pulmicort inhaled twice a day, IV fluid normal saline 60 mL/hour, Solu-Medrol 40 mg every 8 hours, verapamil 2.5 mg every 6 hours p.r.n., Xopenex inhaled every 6 hours p.r.n. IMPRESSION AND PLAN: Sepsis, pulmonary infiltrate, chronic obstructive lung disease, non-small cell lung cancer with metastatic disease to the brain and bone, history of craniectomy for resection of tumor, pulmonary hypertension, may have adrenal insufficiency. Case discussed with the nursing staff. Continue antibiotics. Keep head at 45 degrees. Decrease Solu-Medrol. Overall, poor prognosis. We will recommend palliative consult. Follow up labs in the morning. Thank you and we will follow with you. Chica Palmer MD [facility] # [id number]
[2018-06-04] MEDS: Morphine 4 mg/ml ISec IVP PRN ×2 (01:32→18:12)
[2018-06-04] MEDS: MethylPREDNISolone 40 mg Vial IVP SCH ×3 (05:43→21:36)
--- NOTE | 2018-06-04 06:43 | CP.PCM.PN ---
Objective - Vital Signs/Intake and Output Vital Signs (last 24 hours): Temp Pulse Resp BP Pulse Ox 97.4 F L 76 24 94/67 L 94 L 06/03/18 23:19 06/03/18 23:19 06/03/18 23:19 06/03/18 23:19 06/03/18 23:19 Intake and Output: 06/03/18 06/04/18 18:59 06:59 Intake Total 720 Balance 720 - Medications Medications: Current Medications Acetylcysteine (Acetylcysteine 20%) 3 ml INH BIDRESP [facility] Last Admin: 06/03/18 20:30 Dose: 3 ml Budesonide (Pulmicort Respules) 0.5 mg IH [id number] [facility] Last Admin: 06/03/18 20:30 Dose: 0.5 mg Enoxaparin Sodium (Lovenox) 60 mg SC 0600,1800 [facility] PRN Reason: Protocol Last Admin: 06/03/18 18:14 Dose: 60 mg Ergocalciferol (Drisdol 50,000 Intl Units Cap) 1 cap PO Q7D ON LICENSE OF [facility] Last Admin: 06/03/18 10:14 Dose: 1 cap Folic Acid (Folic Acid) 1 mg PO DAILY ON LICENSE OF [facility] Last Admin: 06/03/18 09:52 Dose: 1 mg Sodium Chloride (Sodium Chloride 0.9%) 1,000 mls @ 60 mls/hr IV .[id number] ON LICENSE OF [facility] Last Admin: 06/03/18 14:45 Dose: 60 mls/hr Meropenem (Merrem Iv 1 Gm Premix) 50 mls @ 100 mls/hr IVPB Q12 [facility] PRN Reason: Protocol Stop: 06/10/18 10:01 Last Admin: 06/03/18 21:50 Dose: 100 mls/hr Levalbuterol HCl (Xopenex) 0.63 mg IH [id number] PRN PRN Reason: Shortness of Breath Last Admin: 06/03/18 20:30 Dose: 0.63 mg Levetiracetam (Keppra) 500 mg PO Q12 ON LICENSE OF [facility] Last Admin: 06/03/18 21:50 Dose: 500 mg Memantine (Namenda) 10 mg PO HS ON LICENSE OF [facility] Last Admin: 06/03/18 21:51 Dose: 10 mg Methylprednisolone (Solu-Medrol) 40 mg IVP Q8 ON LICENSE OF [facility] Last Admin: 06/04/18 05:43 Dose: 40 mg Metoprolol Tartrate (Lopressor) 75 mg PO BID ON LICENSE OF [facility] Last Admin: 06/03/18 18:14 Dose: 75 mg Morphine Sulfate (Morphine) 4 mg IVP Q4H PRN PRN Reason: Pain, moderate (4-7) Last Admin: 06/04/18 01:32 Dose: 4 mg Non-Formulary Medication (Lubiprostone [Amitiza]) 24 mg PO BID ON LICENSE OF [facility] Last Admin: 06/03/18 18:15 Dose: Not Given Nystatin (Nystatin Oral Susp) 5 ml PO QID ON LICENSE OF [facility] Last Admin: 06/03/18 21:50 Dose: 5 ml Nystatin (Mycostatin Cream) 1 ea TOP TID ON LICENSE OF [facility] Last Admin: 06/03/18 18:13 Dose: 1 applic Pantoprazole Sodium (Protonix Ec Tab) 40 mg PO DAILY ON LICENSE OF [facility] Last Admin: 06/03/18 09:57 Dose: 40 mg Verapamil HCl (Verapamil Inj) 2.5 mg IVP Q6H PRN PRN Reason: for heart rate >120 Last Admin: 05/28/18 23:32 Dose: 2.5 mg Verapamil HCl (Calan Tab) 40 mg PO TID ON LICENSE OF [facility] Last Admin: 06/03/18 18:14 Dose: 40 mg - Labs Labs: 06/03/18 18:30 06/03/18 18:30 PT 12.8 SECONDS (9.4-12.5) H 05/20/18 10:45 INR 1.11 (0.93-1.08) H 05/20/18 10:45 APTT 24.7 Seconds (25.1-36.5) L 05/20/18 10:45
[2018-06-04 06:56] LABS: GRAN # 3.63 (1.4-6.5); GRAN % 92.2 % (50.0-68.0); HEMOGLOBIN 9.5 g/dL (12.0-16.0); LYMPH # 0.2 (1.2-3.4); LYMPH % 5.8 % (22.0-35.0); MEAN CELL VOLUME 97.6 fl (80.0-105.0); MEAN CORPUSCULAR HEMOGLOBIN 33.2 pg (25.0-35.0); MEAN CORPUSCULAR HGB CONC 34.1 g/dl (31.0-37.0); MONO # 0.1 (0.1-0.6); RBC 2.86 10^6/uL (3.5-6.1); RED CELL DISTRIBUTION WIDTH 14.7 % (11.5-14.5); WHITE BLOOD COUNT 3.9 10^3/ul (4.5-11.0)
[2018-06-04 07:02] LABS: ALB/GLOB RATIO 0.8 (1.1-1.8); ALBUMIN 2.3 g/dL (3.0-4.8); ALT/SGPT 36 U/L (7-56); AST/SGOT 65 U/L (14-36); BLOOD UREA NITROGEN 24 mg/dL (7-21); CALCIUM 8.9 mg/dL (8.4-10.5); GFR AFRICAN-AMERICAN > 60; GFR NON-AFRICAN AMERICAN > 60
[2018-06-04] MEDS: Acetylcysteine 20% Inhal Soln (4ml) INH SCH ×2 (07:26→20:15)
[2018-06-04 07:27] LABS: PLATELET COUNT 36 10^3/uL (120.0-450.0)
[2018-06-04] MEDS: Levalbuterol 0.63 MG/3 ML Inhal Soln UD IH PRN ×2 (07:27→13:32)
[2018-06-04] MEDS: Budesonide 0.5 mg/2 ml Inhal Susp UD IH SCH ×2 (07:27→20:15)
[2018-06-04] MEDS: Enoxaparin 60 mg Syringe SC SCH ×2 (07:31→18:11)
[2018-06-04] MEDS ORDERED: Potassium Chloride 20 mEq ER Tab PO STA (08:02)
--- NOTE | 2018-06-04 08:05 | CP.PCM.PN ---
Subjective - Date & Time of Evaluation Date of Evaluation: 06/04/18 Time of Evaluation: 15:13 - Subjective Subjective: Chris Browning DO, PGY-2: Hematology and Oncology Service Patient seen and examined at bedside. Patient is not on her oxygen. She.reports having diffuse leg pain and shortness of breath. She was verbally Pulse oximetry revealed patient had an oxygen saturation of 80. Nursing was alerted that the patient did not have her oxygen and was recently transferred from the ICU for sepsis secondary to multi-focal healthcare-associated pneumonia. Dispensing Optician called for Respiratory Therapist. A stat duoneb was ordered as well as an ABG. The patient appeared to improve with a venti-mask placed 10 L/min and her oxygen saturation improved to SpO2. Objective - Vital Signs/Intake and Output Vital Signs (last 24 hours): Temp Pulse Resp BP Pulse Ox 97.4 F L 76 24 94/67 L 94 L 06/03/18 23:19 06/03/18 23:19 06/03/18 23:19 06/03/18 23:19 06/03/18 23:19 Intake and Output: 06/04/18 06/04/18 06:59 18:59 Intake Total 720 Balance 720 - Medications Medications: Current Medications Acetylcysteine (Acetylcysteine 20%) 3 ml INH BIDRESP [facility] Last Admin: 06/04/18 07:26 Dose: 3 ml Budesonide (Pulmicort Respules) 0.5 mg IH [id number] [facility] Last Admin: 06/04/18 07:27 Dose: 0.5 mg Enoxaparin Sodium (Lovenox) 60 mg SC 0600,1800 [facility] PRN Reason: Protocol Last Admin: 06/04/18 07:31 Dose: 60 mg Ergocalciferol (Drisdol 50,000 Intl Units Cap) 1 cap PO Q7D [facility] Last Admin: 06/03/18 10:14 Dose: 1 cap Folic Acid (Folic Acid) 1 mg PO DAILY [facility] Last Admin: 06/03/18 09:52 Dose: 1 mg Sodium Chloride (Sodium Chloride 0.9%) 1,000 mls @ 60 mls/hr IV .[id number] [facility] Last Admin: 06/03/18 14:45 Dose: 60 mls/hr Meropenem (Merrem Iv 1 Gm Premix) 50 mls @ 100 mls/hr IVPB Q12 [facility] PRN Reason: Protocol Stop: 06/10/18 10:01 Last Admin: 06/03/18 21:50 Dose: 100 mls/hr Levalbuterol HCl (Xopenex) 0.63 mg IH [id number] PRN PRN Reason: Shortness of Breath Last Admin: 06/04/18 07:27 Dose: 0.63 mg Levetiracetam (Keppra) 500 mg PO Q12 [facility] Last Admin: 06/03/18 21:50 Dose: 500 mg Memantine (Namenda) 10 mg PO HS [facility] Last Admin: 06/03/18 21:51 Dose: 10 mg Methylprednisolone (Solu-Medrol) 40 mg IVP Q8 [facility] Last Admin: 06/04/18 05:43 Dose: 40 mg Metoprolol Tartrate (Lopressor) 75 mg PO BID [facility] Last Admin: 06/03/18 18:14 Dose: 75 mg Morphine Sulfate (Morphine) 4 mg IVP Q4H PRN PRN Reason: Pain, moderate (4-7) Last Admin: 06/04/18 01:32 Dose: 4 mg Non-Formulary Medication (Lubiprostone [Amitiza]) 24 mg PO BID [facility] Last Admin: 06/03/18 18:15 Dose: Not Given Nystatin (Nystatin Oral Susp) 5 ml PO QID [facility] Last Admin: 06/03/18 21:50 Dose: 5 ml Nystatin (Mycostatin Cream) 1 ea TOP TID [facility] Last Admin: 06/03/18 18:13 Dose: 1 applic Pantoprazole Sodium (Protonix Ec Tab) 40 mg PO DAILY [facility] Last Admin: 06/03/18 09:57 Dose: 40 mg Potassium Chloride (K-Dur 20 Meq Er Tab) 40 meq PO STAT STA Stop: 06/04/18 08:03 Verapamil HCl (Verapamil Inj) 2.5 mg IVP Q6H PRN PRN Reason: for heart rate >120 Last Admin: 05/28/18 23:32 Dose: 2.5 mg Verapamil HCl (Calan Tab) 40 mg PO TID [facility] Last Admin: 06/03/18 18:14 Dose: 40 mg - Labs Labs: 06/04/18 06:30 06/04/18 06:30 PT 12.8 SECONDS (9.4-12.5) H 05/20/18 10:45 INR 1.11 (0.93-1.08) H 05/20/18 10:45 APTT 24.7 Seconds (25.1-36.5) L 05/20/18 10:45 - Constitutional Appears: Non-toxic, No Acute Distress - Head Exam Additional comments: rai facies - Eye Exam Eye Exam: EOMI, Normal appearance - ENT Exam ENT Exam: Mucous Membranes Moist Additional comments: no oral petechia - Neck Exam Neck Exam: Normal Inspection - Respiratory Exam Respiratory Exam: Accessory Muscle Use, Wheezes - Cardiovascular Exam Cardiovascular Exam: Tachycardia, +S1, +S2 - GI/Abdominal Exam GI & Abdominal Exam: Soft, Normal Bowel Sounds. absent: Guarding, Tenderness - Extremities Exam Extremities Exam: Normal Inspection. absent: Calf Tenderness - Back Exam Back Exam: NORMAL INSPECTION. 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 CT/MRI of the head were negative. Patient was was found to have multifocal infiltrates consistent with healthcare-associated pneumonia and sepsis requiring ICU admission. Patient started on broad-spectrum antibiotic, sstress dose steroids, and Keppra For seizure prophylaxis, high flow oxygen with humidified 40-45% FiO2, and therapeutic dose of Lovenox for partial thrombosis of IVC. Patient has improved overall, clinically, mental status has improved. Patients blood cell indices show a progressive pancytopenia. ID discontinued Zyvox two days prior. Manual platelet count shows a level of 60. Patient is currently on switched to Solumedrol 40 mg q8h JACQUIE given her likely adrenal insuffiency. Patient is DNR and DNI. We will continue to check daily manual platelet counts as well as CBC with differential and comprehensive metabolic panel. Case discussed with Dr. Borrego and Dr. Dillon Browning PGY2
[2018-06-04 08:10] LABS: PLATELET COUNT MANUAL 53 K/mm3 (120-450)
--- NOTE | 2018-06-04 09:36 | CP.PCM.PN ---
Subjective - Date & Time of Evaluation Date of Evaluation: 06/04/18 Time of Evaluation: 07:00 - Subjective Subjective: Medicine Progress Note for Dr. Garcia (covering for Dr. Darby)Lillian PGY3 Patient seen and examined at bedside. I spoke with nursing staff and they did not report any acute overnight events. Upon examination, patient is resting in bed on high flow. She is lethargic. She responds to some questions. She denies chest pain, nausea/vomiting/diarrhea. ROS is limited. Objective - Vital Signs/Intake and Output Vital Signs (last 24 hours): Temp Pulse Resp BP Pulse Ox 98 F 81 18 103/76 94 L 06/04/18 06:00 06/04/18 06:00 06/04/18 06:00 06/04/18 06:00 06/04/18 06:00 Intake and Output: 06/04/18 06/04/18 06:59 18:59 Intake Total 720 Balance 720 - Medications Medications: Current Medications Acetylcysteine (Acetylcysteine 20%) 3 ml INH BIDRESP [facility] Last Admin: 06/04/18 07:26 Dose: 3 ml Budesonide (Pulmicort Respules) 0.5 mg IH [id number] [facility] Last Admin: 06/04/18 07:27 Dose: 0.5 mg Enoxaparin Sodium (Lovenox) 60 mg SC 0600,1800 [facility] PRN Reason: Protocol Last Admin: 06/04/18 07:31 Dose: 60 mg Ergocalciferol (Drisdol 50,000 Intl Units Cap) 1 cap PO Q7D [facility] Last Admin: 06/03/18 10:14 Dose: 1 cap Folic Acid (Folic Acid) 1 mg PO DAILY [facility] Last Admin: 06/03/18 09:52 Dose: 1 mg Sodium Chloride (Sodium Chloride 0.9%) 1,000 mls @ 60 mls/hr IV .[id number] [facility] Last Admin: 06/03/18 14:45 Dose: 60 mls/hr Meropenem (Merrem Iv 1 Gm Premix) 50 mls @ 100 mls/hr IVPB Q12 [facility] PRN Reason: Protocol Stop: 06/10/18 10:01 Last Admin: 06/03/18 21:50 Dose: 100 mls/hr Levalbuterol HCl (Xopenex) 0.63 mg IH [id number] PRN PRN Reason: Shortness of Breath Last Admin: 06/04/18 07:27 Dose: 0.63 mg Levetiracetam (Keppra) 500 mg PO Q12 [facility] Last Admin: 06/03/18 21:50 Dose: 500 mg Memantine (Namenda) 10 mg PO HS [facility] Last Admin: 06/03/18 21:51 Dose: 10 mg Methylprednisolone (Solu-Medrol) 40 mg IVP Q8 [facility] Last Admin: 06/04/18 05:43 Dose: 40 mg Metoprolol Tartrate (Lopressor) 75 mg PO BID [facility] Last Admin: 06/03/18 18:14 Dose: 75 mg Morphine Sulfate (Morphine) 4 mg IVP Q4H PRN PRN Reason: Pain, moderate (4-7) Last Admin: 06/04/18 01:32 Dose: 4 mg Non-Formulary Medication (Lubiprostone [Amitiza]) 24 mg PO BID [facility] Last Admin: 06/03/18 18:15 Dose: Not Given Nystatin (Nystatin Oral Susp) 5 ml PO QID [facility] Last Admin: 06/03/18 21:50 Dose: 5 ml Nystatin (Mycostatin Cream) 1 ea TOP TID [facility] Last Admin: 06/03/18 18:13 Dose: 1 applic Pantoprazole Sodium (Protonix Ec Tab) 40 mg PO DAILY [facility] Last Admin: 06/03/18 09:57 Dose: 40 mg Verapamil HCl (Verapamil Inj) 2.5 mg IVP Q6H PRN PRN Reason: for heart rate >120 Last Admin: 05/28/18 23:32 Dose: 2.5 mg Verapamil HCl (Calan Tab) 40 mg PO TID [facility] Last Admin: 06/03/18 18:14 Dose: 40 mg - Labs Labs: 06/04/18 06:30 06/04/18 06:30 PT 12.8 SECONDS (9.4-12.5) H 05/20/18 10:45 INR 1.11 (0.93-1.08) H 05/20/18 10:45 APTT 24.7 Seconds (25.1-36.5) L 05/20/18 10:45 - Constitutional Appears: Chronically Ill - Eye Exam Eye Exam: Normal appearance, PERRL - ENT Exam ENT Exam: Mucous Membranes Dry - Respiratory Exam Respiratory Exam: Wheezes (diffuse ), NORMAL BREATHING PATTERN. absent: Rales, Rhonchi - Cardiovascular Exam Cardiovascular Exam: REGULAR RHYTHM, +S1, +S2. absent: Gallop, Rubs, Murmur - GI/Abdominal Exam GI & Abdominal Exam: Soft, Normal Bowel Sounds. absent: Rigid, Tenderness, Mass , Rebound - Extremities Exam Extremities Exam: Pedal Edema - Neurological Exam Neurological Exam: CN II-XII Intact - Skin Skin Exam: Dry, Warm Assessment and Plan - Assessment and Plan (Free Text) Assessment: This is a 63yo female with past medial history of COPD, NSCLL with mets to brain s/p crainiotomy and mets to bone who was admitted for 1. AMS - secondary to HCAP v. delirium v. metabolic encephalopathy with underlying mild cognitive impairment 2. Sepsis - secondary to HCAP 3. Pancytopenia - can be secondary to sepsis v. medications (such as Zyvox) - Medications adjusted 4. Hypoxia (improved) - secondary to HCAP as well as lung cancer - Patient is on high flow 5. IVC thrombus - On Lovenox 6. COPD 7. Sinus tachycardia - secondary to sepsis, lung infiltrate, lung ca 8. Hypokalemia - K: 3.3 Plan: Patient is on high flow. Continue mucomyst, pulmicort, Xopenex and Solumedrol 40q8. Pulm is on consult. ID is on consult for HCAP. Patient is on Merrem. K is 3.3. Will check Magnesium level. Patient is on IV fluids. Cardiology consulted and placed patient on Lopressor and Verapamil for tachycardia. Oncology is following and recommendations are appreciated. Patient is on folic acid and vitamin D. She is on Keppra for seizure prophylaxis and namenda. Neurology recs appreciated and has signed off. Patient has poor prognosis. She is DNR/DNI. Palliative care consulted. She is on Lovenox for IVC thrombus and pepcid for GI prophylaxis. Case seen, discussed and reviewed with Dr. Garcia. Lillian Haines PGY3
[2018-06-04] MEDS ORDERED: Potassium Chloride 20 mEq/15 ml LIQ UD PO ONE (10:18)
[2018-06-04] MEDS: Nystatin 100,000 Units/ml Oral Susp 5 ml UD PO SCH ×4 (10:53→21:36)
[2018-06-04] MEDS: Nystatin 100,000 Units/gm Cream(15 gm) TOP SCH (10:54)
[2018-06-04] MEDS: Meropenem IV 1 gm in NS 50 ML IVPB SCH ×2 (10:54→21:32)
[2018-06-04] MEDS: Pantoprazole 40 mg EC Tab PO SCH (10:54)
[2018-06-04] MEDS: LUBIPROSTONE 24 MG PO SCH (10:55)
--- NOTE | 2018-06-04 15:11 | PN ---
DATE: 06/04/2018 REASON FOR CONSULTATION AND FOLLOWUP: Non-small cell cancer with metastasis to the brain, status post craniotomy, chemotherapy; COPD; hypertension; lung infiltrate; tachycardia; cardiac evaluation and followup. SUBJECTIVE: Patient denies any chest pain, shortness of breath, any palpitation. Feels better. OBJECTIVE: GENERAL: Not in apparent distress. Lying flat. VITAL SIGNS: Temperature afebrile, 98; heart rate 81; blood pressure 103/76. HEENT: PERRLA. Extraocular muscles intact. NECK: Supple. No carotid bruit. No thyromegaly. CHEST: Clear to auscultation. HEART: S1 and S2, regular. ABDOMEN: Soft. EXTREMITIES: Clubbing and cyanosis negative. LABORATORY DATA: WBC is 3.9, hemoglobin 9.5, hematocrit 27.9, platelet count 36. Chemistry shows sodium 144, potassium 3.3, chloride 113, carbon dioxide 24, anion gap of 10, BUN 24, creatinine 0.6. Total protein 5.3, albumin 2.7, albumin globulin ratio was 0.8. IMPRESSION: A 63-year-old female with past medical history significant for non-small cancer with metastasis to the brain, status post craniotomy and chemotherapy; history of chronic obstructive pulmonary disease; hypertension; history of inferior vena cava thrombosis came to the Emergency Room with the shortness of breath, admitted to the floor, had a rapid response, moved to Intensive Care Unit. Sinus tachycardia, multifactorial, heart rate below 130, in Med/Surg floor; anemia; thrombocytopenia; pulmonary infiltrate. As mentioned, tachycardia is multifactorial. RECOMMENDATIONS: Supplement electrolyte aggressively. Increase nutritional support. The patient has severe protein-calorie malnutrition, which was not present on admission, anemia, thrombocytopenia, pancytopenia. Overall, the patient's condition is critical. Long-term prognosis is guarded. Recommend supplement electrolytes. Continue DVT prophylaxis as well as patient is already on Lovenox because of inferior vena cava thrombosis. Continue verapamil 40 p.o. t.i.d. We will supplement Ensure for additional support. We will follow with you. Thank you, Dr. Darby, for providing us the opportunity in taking care of Nicol Brannon. Chica Simon MD cc: Yaneth Darby MD
[2018-06-04] MEDS ORDERED: Albuterol-Ipratrop 3 mg / 0.5 (3 ml) UD IH STA (15:46)
--- NOTE | 2018-06-04 15:50 | PN ---
DATE: 06/04/2018 SUBJECTIVE: The patient seen in bed, in no acute distress, nontoxic, was seen earlier this morning. No new changes. PHYSICAL EXAMINATION: VITAL SIGNS: Temperature is 98, blood pressure is 105/60, respiratory rate of 24, heart rate of 100. HEENT: Unremarkable. NECK: Supple. LUNGS: Decreased breath sounds. HEART: Normal S1, S2. ABDOMEN: Soft, nontender. LABORATORY EXAMINATION: Reveals a white count of 3.9, hemoglobin of 9, and platelets of 36. The patient has 92% granulocytosis and coagulation is noted. Blood gases are reviewed. BUN is 24, creatinine is 0.6. The patient's procalcitonin is 0.44. The patient has had 5 procalcitonin's, all of them have been normal. Urinalysis is noted, has moderate bacteria and urine for Legionella antigen is negative. Microbiology reveals the urine culture from the 1st, mixed organisms. The MRSA screen is negative. Blood cultures are negative and urine culture from 05/27, is no growth. The patient's note by is reviewed. ASSESSMENT AND PLAN: A 63-year-old female seen earlier in 577, bed 1 with severe sepsis secondary to healthcare-associated pneumonia, non-small cell lung cancer, metastases to the brain with a history of craniotomy, admitted with severe sepsis secondary to healthcare-associated pneumonia, negative procalcitonin, negative Methicillin-resistant Staphylococcus aureus nasal screen, currently on day #4 of meropenem. We will complete 4 to 7 days of meropenem. Follow the patient closely. Overall prognosis is quite poor for this patient with pancytopenia. I doubt the pancytopenia is from the Zyvox. The patient had not been on Zyvox long enough and had pancytopenia prior to the Zyvox. We will follow closely with you. Serge Kruse MD
[2018-06-04 16:52] LABS: ARTERIAL BLOOD GAS HCO3 18.9 mmol/L (21-28); ARTERIAL BLOOD GAS HEMOGLOBIN 9.8 g/dL (11.7-17.4); ARTERIAL BLOOD GAS O2 CAPACITY 13.4 mL/dl (16-24); ARTERIAL BLOOD GAS O2 CONTENT 11.7 ML/dl (15-23); ARTERIAL BLOOD GAS O2 SAT 87.3 % (95-98); ARTERIAL BLOOD GAS PCO2 26 mm/Hg (35-45); ARTERIAL BLOOD GAS PH 7.47 (7.35-7.45); ARTERIAL BLOOD GAS TCO2 19.7 mmol.L (22-28)
--- NOTE | 2018-06-04 20:01 | PN ---
DATE: 06/04/2018 PULMONARY PROGRESS NOTE REFERRING PHYSICIAN: Yaneth Darby MD SUBJECTIVE: She is lying in the bed, head at 45 degrees. Sleepy, arousable, on high-flow oxygen, 40% oxygen. Has some cough. No hemoptysis or hematemesis. No hematuria or diarrhea reported. OBJECTIVE: GENERAL: In no acute distress. VITAL SIGNS: Temperature is 98, heart rate is 100, respiratory rate is 18, blood pressure 105/65, pulse ox is 96% on high-flow 40% oxygen. HEENT: Moist mucous membranes. Crowded airway. NECK: Supple. No JVD. LUNGS: Scattered rhonchi. HEART: S1 and S2. ABDOMEN: Soft, nontender, no organomegaly. EXTREMITIES: There is no edema. NEUROLOGIC: Awake, alert, and does follow simple commands. MEDICATIONS: She is on Mucomyst 20% 3 mL inhaled twice a day, verapamil 40 mg three times a day, vitamin D 50,000 units every 7 days, DuoNeb was given p.r.n. basis, folic acid 1 mg daily, Keppra 500 mg every 12 hours, metoprolol tartrate 75 mg twice a day, Lovenox 60 mg twice a day, Amitiza 24 mcg twice a day, meropenem 1 g every 12 hours, morphine 4 mg every 4 hours p.r.n., nystatin to affected area three times a day, Namenda 10 mg at bedtime, Pepcid 40 mg daily, Protonix 40 mg daily, Pulmicort inhaled twice a day, IV fluid normal saline 60 mL, Solu-Medrol 40 mg every 8 hours, verapamil 2.5 mg every 6 hours p.r.n., Xopenex 0.63 every 6 hours. LABORATORY DATA: Shows hemoglobin 9.5, hematocrit 27.9, WBC 3.9, platelet count is 36. Sodium 144, potassium 3.3, chloride 113, bicarbonate 24. BUN 24, creatinine 0.6. Glucose 94. Calcium 8.9. Iron is pending. Magnesium 1.9. AST 65, ALT 36, alk phos is 96. Albumin is 2.3. IMPRESSION AND PLAN: Sepsis, pulmonary infiltrate, chronic obstructive lung disease, non-small cell lung cancer with metastatic disease to the brain and bones, status post craniectomy for resection of tumor, hypertension, may have adrenal insufficiency. Pulmonary point of view, doing okay. Noted she is DNR and DNI. Overall poor prognosis. Continue bronchodilator. Keep head at 45 degrees. Antibiotics. Follow up labs in the morning. Thank you and we will follow with you. Chica Palmer MD
[2018-06-04] MEDS: Levalbuterol 0.63 MG/3 ML Inhal Soln UD IH SCH (20:15)
[2018-06-05] MEDS: Levalbuterol 0.63 MG/3 ML Inhal Soln UD IH SCH ×4 (03:05→19:39)
--- NOTE | 2018-06-05 03:35 | PN ---
DATE: 06/03/2018 SUBJECTIVE: Patient is a 63-year-old female. Patient was seen and examined on the bedside on 06/03/2018, looking comfortable. No nausea, vomiting, or diarrhea. No hematuria or hematochezia. No headache. No dizziness. No chest pain. No palpitation. No hematemesis. No hematuria. Still have a high-flow nasal cannula oxygenation of 40% . PHYSICAL EXAMINATION: HEENT: Head: Normocephalic, atraumatic. Eyes: PERRLA. Extraocular muscles intact. Conjunctivae clear. Nose patent. Mucous membranes moist. NECK: Supple. No carotid bruit. No JVD or thyromegaly. CHEST: Bilaterally symmetrical. HEART: S1 and S2 positive. LUNGS: Clear to auscultation. ABDOMEN: Soft. Bowel sounds present. No organomegaly. EXTREMITIES: No edema. No cyanosis. NEUROLOGIC: Patient is awake and alert. Moving all 4 extremities. No focal deficit. LABORATORY DATA: We do not have recent lab today, but I reviewed old labs. MEDICATIONS: Mucomyst, verapamil, vitamin D, Keppra, metoprolol, Lovenox, Amitiza, meropenem, morphine, Namenda, nystatin, Protonix, Pulmicort, NS, and Solu-Medrol. ASSESSMENT AND PLAN: Ms. Nicol Brannon is a 63-year-old female with sepsis with pulmonary infiltrates; chronic obstructive lung disease; non-small cell lung cancer with metastatic disease due to brain and bones, status post chemotherapy, radiation therapy, history of craniotomy for resection of the tumor; pulmonary hypertension, adrenal insufficiency. Plan is continue antibiotics, high-flow oxygen, tapering dose of steroids. There is poor prognosis, family knows, they made the patient do not resuscitate and do not intubate. We will follow up. Yaneth Darby MD MTDD
[2018-06-05] MEDS: Enoxaparin 60 mg Syringe SC SCH ×2 (06:00→18:59)
[2018-06-05 06:33] LABS: GRAN % 91.6 % (50.0-68.0); HEMOGLOBIN 9.3 g/dL (12.0-16.0); LYMPH # 0.2 (1.2-3.4); LYMPH % 5.5 % (22.0-35.0); MEAN CELL VOLUME 97.8 fl (80.0-105.0); MEAN CORPUSCULAR HEMOGLOBIN 33.3 pg (25.0-35.0); MEAN CORPUSCULAR HGB CONC 34.1 g/dl (31.0-37.0); MONO # 0.1 (0.1-0.6); MONO % 2.9 % (1.0-6.0); RBC 2.79 10^6/uL (3.5-6.1); RED CELL DISTRIBUTION WIDTH 14.6 % (11.5-14.5); WHITE BLOOD COUNT 4.2 10^3/ul (4.5-11.0)
--- NOTE | 2018-06-05 06:40 | CP.PCM.PN ---
Subjective - Date & Time of Evaluation Date of Evaluation: 06/05/18 Time of Evaluation: 07:21 - Subjective Subjective: Chris Browning DO, PGY-2: Hematology and Oncology Progress Note for Dr. Carranza Patient seen and examined at bedside. Patient is sleeping, but is arousable. Patient obeys simple commands, such as open mouth, and stick out tongue. Chart review indicates patient has been afebrile. Otherwise, no adverse noted overnight. ABG reviewed from yesterday. Objective - Vital Signs/Intake and Output Vital Signs (last 24 hours): Temp Pulse Resp BP Pulse Ox 98.2 F 74 18 100/64 94 L 06/04/18 22:00 06/04/18 22:00 06/04/18 22:00 06/04/18 22:00 06/04/18 22:00 Intake and Output: 06/04/18 06/05/18 18:59 06:59 Intake Total 240 360 Output Total 2 Balance 240 358 - Medications Medications: Current Medications Acetylcysteine (Acetylcysteine 20%) 3 ml INH BIDRESP [facility] Last Admin: 06/04/18 20:15 Dose: 3 ml Budesonide (Pulmicort Respules) 0.5 mg IH [id number] [facility] Last Admin: 06/04/18 20:15 Dose: 0.5 mg Enoxaparin Sodium (Lovenox) 60 mg SC 0600,1800 JACQUIE PRN Reason: Protocol Last Admin: 06/05/18 06:00 Dose: 60 mg Ergocalciferol (Drisdol 50,000 Intl Units Cap) 1 cap PO Q7D [facility] Last Admin: 06/03/18 10:14 Dose: 1 cap Famotidine (Pepcid) 40 mg PO HS [facility] Last Admin: 06/04/18 21:36 Dose: 40 mg Folic Acid (Folic Acid) 1 mg PO DAILY [facility] Last Admin: 06/04/18 10:54 Dose: 1 mg Sodium Chloride (Sodium Chloride 0.9%) 1,000 mls @ 60 mls/hr IV .[id number] [facility] Last Admin: 06/03/18 14:45 Dose: 60 mls/hr Meropenem (Merrem Iv 1 Gm Premix) 50 mls @ 100 mls/hr IVPB Q12 JACQUIE PRN Reason: Protocol Stop: 06/10/18 10:01 Last Admin: 06/04/18 21:32 Dose: 100 mls/hr Levalbuterol HCl (Xopenex) 0.63 mg IH [id number] [facility] Last Admin: 06/05/18 03:05 Dose: 0.63 mg Levetiracetam (Keppra) 500 mg PO Q12 [facility] Last Admin: 06/04/18 21:36 Dose: 500 mg Memantine (Namenda) 10 mg PO HS [facility] Last Admin: 06/04/18 21:36 Dose: 10 mg Methylprednisolone (Solu-Medrol) 40 mg IVP Q12 [facility] Last Admin: 06/04/18 21:36 Dose: 40 mg Metoprolol Tartrate (Lopressor) 75 mg PO BID [facility] Last Admin: 06/04/18 18:11 Dose: 75 mg Morphine Sulfate (Morphine) 4 mg IVP Q4H PRN PRN Reason: Pain, moderate (4-7) Last Admin: 06/04/18 18:12 Dose: 4 mg Non-Formulary Medication (Lubiprostone [Amitiza]) 24 mg PO BID [facility] Last Admin: 06/04/18 10:55 Dose: Not Given Nystatin (Nystatin Oral Susp) 5 ml PO QID [facility] Last Admin: 06/04/18 21:36 Dose: 5 ml Nystatin (Mycostatin Cream) 1 ea TOP TID [facility] Last Admin: 06/04/18 10:54 Dose: 1 applic Pantoprazole Sodium (Protonix Ec Tab) 40 mg PO DAILY [facility] Last Admin: 06/04/18 10:54 Dose: 40 mg Verapamil HCl (Verapamil Inj) 2.5 mg IVP Q6H PRN PRN Reason: for heart rate >120 Last Admin: 05/28/18 23:32 Dose: 2.5 mg Verapamil HCl (Calan Tab) 40 mg PO TID [facility] Last Admin: 06/04/18 18:12 Dose: 40 mg - Labs Labs: 06/04/18 06:30 06/04/18 06:30 PT 12.8 SECONDS (9.4-12.5) H 05/20/18 10:45 INR 1.11 (0.93-1.08) H 05/20/18 10:45 APTT 24.7 Seconds (25.1-36.5) L 05/20/18 10:45 - Constitutional Appears: Non-toxic - Head Exam Additional comments: craniotomy scar, rai facies - Eye Exam Eye Exam: EOMI, Normal appearance. absent: Scleral icterus Additional comments: no conjuctival pallor - ENT Exam ENT Exam: Mucous Membranes Moist Additional comments: ral mucous membranes without petechiae - Respiratory Exam Respiratory Exam: Wheezes (diffuse and bilaterally). absent: Accessory Muscle Use - Cardiovascular Exam Cardiovascular Exam: RRR, +S1, +S2 - GI/Abdominal Exam GI & Abdominal Exam: Soft, Normal Bowel Sounds - Extremities Exam Extremities Exam: Normal Inspection. 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 CT/MRI of the head were negative. Patient was was found to have multifocal infiltrates consistent with healthcare-associated pneumonia and sepsis requiring ICU admission. Patient started on broad-spectrum antibiotic, sstress dose steroids, and Keppra for seizure prophylaxis, high flow oxygen with humidified 40-45% FiO2, and therapeutic dose of Lovenox for partial thrombosis of IVC. Patient clinical status has improved, but patient has a poor prognosis overall. Patients blood cell indices show a progressive pancytopenia, with the manual platelet count today being 36. . ID discontinued Zyvox, continuing with Merropenem. Manual platelet count shows a level of 60. Patient is currently on Solumedrol 40 mg q12h JACQUIE given her likely adrenal insuffiency. Patient is DNR and DNI. Palliative care consulted. We will continue to check daily manual platelet counts as well as CBC with differential and comprehensive metabolic panel. Case discussed with Dr. Dillon Browning PGY2
[2018-06-05 06:52] LABS: PLATELET COUNT 38 10^3/uL (120.0-450.0)
[2018-06-05 06:53] LABS: ALB/GLOB RATIO 0.8 (1.1-1.8); ALBUMIN 2.3 g/dL (3.0-4.8); ALT/SGPT 31 U/L (7-56); AST/SGOT 53 U/L (14-36); BLOOD UREA NITROGEN 26 mg/dL (7-21); CALCIUM 9.3 mg/dL (8.4-10.5); GFR AFRICAN-AMERICAN > 60; GFR NON-AFRICAN AMERICAN > 60
--- NOTE | 2018-06-05 07:02 | CP.PCM.PN ---
<Laine Haines - Last Filed: 06/05/18 12:26> Subjective - Date & Time of Evaluation Date of Evaluation: 06/05/18 Time of Evaluation: 07:00 - Subjective Subjective: Medicine Progress Note for Dr. Garcia (covering for Dr. Darby), Lillian Haines PGY3 Patient seen and examined at bedside. There were no acute overnight events as per nursing staff. Patient is on high flow. She is asleep, but arousable. She denies having pain or shortness of breath. Patient kept falling asleep upon interview. ROS was limited. Objective - Vital Signs/Intake and Output Vital Signs (last 24 hours): Temp Pulse Resp BP Pulse Ox 98.2 F 74 18 100/64 94 L 06/04/18 22:00 06/04/18 22:00 06/04/18 22:00 06/04/18 22:00 06/04/18 22:00 Intake and Output: 06/05/18 06/05/18 06:59 18:59 Intake Total 1260 Output Total 2 Balance 1258 - Medications Medications: Current Medications Acetylcysteine (Acetylcysteine 20%) 3 ml INH BIDRESP [facility] BEDS AT [facility] Last Admin: 06/04/18 20:15 Dose: 3 ml Budesonide (Pulmicort Respules) 0.5 mg IH [id number] [facility] 234 BEDS AT [facility] Last Admin: 06/04/18 20:15 Dose: 0.5 mg Enoxaparin Sodium (Lovenox) 60 mg SC 0600,1800 [facility]S [facility] 234 BEDS AT [facility] PRN Reason: Protocol Last Admin: 06/05/18 06:00 Dose: 60 mg Ergocalciferol (Drisdol 50,000 Intl Units Cap) 1 cap PO Q7D [facility] 234 BEDS AT [facility] Last Admin: 06/03/18 10:14 Dose: 1 cap Famotidine (Pepcid) 40 mg PO HS [facility] 234 B[facility]S [facility] Last Admin: 06/04/18 21:36 Dose: 40 mg Folic Acid (Folic Acid) 1 mg PO DAILY [facility] 234 BEDS AT [facility] Last Admin: 06/04/18 10:54 Dose: 1 mg Sodium Chloride (Sodium Chloride 0.9%) 1,000 mls @ 60 mls/hr IV .[id number] [facility] 234 [facility]S [facility] Last Admin: 06/03/18 14:45 Dose: 60 mls/hr Meropenem (Merrem Iv 1 Gm Premix) 50 mls @ 100 mls/hr IVPB Q12 JACQUIE PRN Reason: Protocol Stop: 06/10/18 10:01 Last Admin: 06/04/18 21:32 Dose: 100 mls/hr Levalbuterol HCl (Xopenex) 0.63 mg IH [id number] [facility] 234 BEDS AT [facility] Last Admin: 06/05/18 03:05 Dose: 0.63 mg Levetiracetam (Keppra) 500 mg PO Q12 [facility] 234 B[facility]S AT [facility] Last Admin: 06/04/18 21:36 Dose: 500 mg Memantine (Namenda) 10 mg PO HS [facility] 234 B[facility]S [facility] Last Admin: 06/04/18 21:36 Dose: 10 mg Methylprednisolone (Solu-Medrol) 40 mg IVP Q12 [facility] 234 B[facility]S [facility] Last Admin: 06/04/18 21:36 Dose: 40 mg Metoprolol Tartrate (Lopressor) 75 mg PO BID [facility] 234 [facility]S [facility] Last Admin: 06/04/18 18:11 Dose: 75 mg Morphine Sulfate (Morphine) 4 mg IVP Q4H PRN PRN Reason: Pain, moderate (4-7) Last Admin: 06/04/18 18:12 Dose: 4 mg Non-Formulary Medication (Lubiprostone [Amitiza]) 24 mg PO BID [facility] 234 B[facility]S AT [facility] Last Admin: 06/04/18 10:55 Dose: Not Given Nystatin (Nystatin Oral Susp) 5 ml PO QID [facility] 234 [facility]S [facility] Last Admin: 06/04/18 21:36 Dose: 5 ml Nystatin (Mycostatin Cream) 1 ea TOP TID [facility] 234 BEDS AT [facility] Last Admin: 06/04/18 10:54 Dose: 1 applic Pantoprazole Sodium (Protonix Ec Tab) 40 mg PO DAILY [facility] 234 [facility]S [facility] Last Admin: 06/04/18 10:54 Dose: 40 mg Verapamil HCl (Verapamil Inj) 2.5 mg IVP Q6H PRN PRN Reason: for heart rate >120 Last Admin: 05/28/18 23:32 Dose: 2.5 mg Verapamil HCl (Calan Tab) 40 mg PO TID [facility] 234 [facility]S [facility] Last Admin: 06/04/18 18:12 Dose: 40 mg - Labs Labs: 06/05/18 06:10 06/05/18 06:10 PT 12.8 SECONDS (9.4-12.5) H 05/20/18 10:45 INR 1.11 (0.93-1.08) H 05/20/18 10:45 APTT 24.7 Seconds (25.1-36.5) L 05/20/18 10:45 - Constitutional Appears: Chronically Ill - Head Exam Head Exam: NORMAL INSPECTION, NORMOCEPHALIC - Eye Exam Eye Exam: PERRL Pupil Exam: NORMAL ACCOMODATION, PERRL - ENT Exam ENT Exam: Mucous Membranes Moist - Respiratory Exam Respiratory Exam: Rhonchi, NORMAL BREATHING PATTERN. absent: Rales, Wheezes - Cardiovascular Exam Cardiovascular Exam: REGULAR RHYTHM, +S1, +S2. absent: Gallop, Rubs, Murmur - GI/Abdominal Exam GI & Abdominal Exam: Soft, Normal Bowel Sounds. absent: Rigid, Tenderness, Rebound - Extremities Exam Extremities Exam: Normal Inspection. absent: Calf Tenderness, Pedal Edema - Neurological Exam Neurological Exam: Alert, CN II-XII Intact - Skin Skin Exam: Dry, Warm Assessment and Plan - Assessment and Plan (Free Text) Assessment: This is a 63yo female with past medial history of COPD, NSCLL with mets to brain s/p crainiotomy and mets to bone who was admitted for 1. AMS - secondary to HCAP v. delirium v. metabolic encephalopathy with underlying mild cognitive impairment 2. Sepsis - secondary to HCAP 3. Pancytopenia - can be secondary to sepsis v. medications - Medications adjusted 4. Hypoxia (improved) - secondary to HCAP as well as lung cancer - Patient is on high flow 5. IVC thrombus - On Lovenox 6. COPD 7. Sinus tachycardia (improved) - secondary to sepsis, lung infiltrate, lung ca 8. Hypokalemia (resolved) Plan: Pulm is on consult, recs appreciated. Patient is on high flow as well as mucomyst, pulmicort, and Xopenex. Solumedrol has been tapered to 40q12. Continue Merrem for HCAP. ID recs appreciated. Continue NS@60. Patient placed on lopressor and verapamil for tachycardia as per cardiology. Heart rate is now controlled. Oncology recommendations appreciated. Neurology recs appreciated and has signed off. Continue Keppra for seizure prophylaxis and namenda. Neurology recs appreciated and has signed off. Patient has poor prognosis. She is DNR/DNI. Palliative care consulted will follow recommendations. Continue Lovenox for thrombus and prophylaxis. Patient is on GI prophylaxis. Case seen, discussed and reviewed with Dr. Choudhry. Lillian Haines PGY3 <Jayden Garcia S - Last Filed: 06/05/18 21:36> Objective - Vital Signs/Intake and Output Vital Signs (last 24 hours): Temp Pulse Resp BP Pulse Ox 97.2 F L 64 20 117/66 90 L 06/05/18 14:00 06/05/18 17:35 06/05/18 14:00 06/05/18 17:35 06/05/18 14:00 Intake and Output: 06/05/18 06/06/18 18:59 06:59 Intake Total 120 Balance 120 - Medications Medications: Current Medications Budesonide (Pulmicort Respules) 0.5 mg IH [id number] [facility]CLUDE 234 BEDS AT [facility] Last Admin: 06/05/18 19:38 Dose: 0.5 mg Enoxaparin Sodium (Lovenox) 60 mg SC 0600,1800 [facility]S [facility]CLUDE 234 BEDS AT [facility] PRN Reason: Protocol Last Admin: 06/05/18 18:59 Dose: 60 mg Ergocalciferol (Drisdol 50,000 Intl Units Cap) 1 cap PO Q7D [facility] 234 BEDS AT [facility] Last Admin: 06/03/18 10:14 Dose: 1 cap Famotidine (Pepcid) 40 mg PO HS [facility] 234 BEDS AT [facility] Last Admin: 06/05/18 21:28 Dose: 40 mg Folic Acid (Folic Acid) 1 mg PO DAILY [facility] 234 BEDS [facility] Last Admin: 06/05/18 10:41 Dose: 1 mg Sodium Chloride (Sodium Chloride 0.9%) 1,000 mls @ 60 mls/hr IV .[id number] [facility] 234 BEDS AT [facility] Last Admin: 06/05/18 21:29 Dose: 60 mls/hr Meropenem (Merrem Iv 1 Gm Premix) 50 mls @ 100 mls/hr IVPB Q12 JACQUIE PRN Reason: Protocol Stop: 06/10/18 10:01 Last Admin: 06/05/18 21:29 Dose: 100 mls/hr Levalbuterol HCl (Xopenex) 0.63 mg IH [id number] [facility]S [facility]CLUDE 234 BEDS AT [facility] Last Admin: 06/05/18 19:39 Dose: 0.63 mg Levetiracetam (Keppra) 500 mg PO Q12 [facility] 234 BEDS AT [facility] Last Admin: 06/05/18 21:28 Dose: 500 mg Memantine (Namenda) 10 mg PO HS [facility] 234 BEDS AT [facility] Last Admin: 06/05/18 21:28 Dose: 10 mg Methylprednisolone (Solu-Medrol) 40 mg IVP Q12 [facility] 234 BEDS AT [facility] Last Admin: 06/05/18 21:29 Dose: 40 mg Metoprolol Tartrate (Lopressor) 75 mg PO BID [facility] 234 BEDS AT [facility] Last Admin: 06/05/18 17:34 Dose: 75 mg Morphine Sulfate (Morphine) 4 mg IVP Q4H PRN PRN Reason: Pain, moderate (4-7) Last Admin: 06/05/18 17:34 Dose: 4 mg Non-Formulary Medication (Lubiprostone [Amitiza]) 24 mg PO BID [facility] 234 BEDS AT [facility] Last Admin: 06/05/18 17:35 Dose: Not Given Nystatin (Nystatin Oral Susp) 5 ml PO QID [facility]CLUDE 234 BEDS AT [facility] Last Admin: 06/05/18 21:28 Dose: 5 ml Nystatin (Mycostatin Cream) 1 ea TOP TID [facility]CLUDE 234 BEDS AT [facility] Last Admin: 06/05/18 17:36 Dose: 1 applic Pantoprazole Sodium (Protonix Ec Tab) 40 mg PO DAILY [facility]CLUDE 234 BEDS AT [facility] Last Admin: 06/05/18 10:44 Dose: 40 mg Verapamil HCl (Verapamil Inj) 2.5 mg IVP Q6H PRN PRN Reason: for heart rate >120 Last Admin: 05/28/18 23:32 Dose: 2.5 mg Verapamil HCl (Calan Tab) 40 mg PO TID [facility]CLUDE 234 BEDS AT [facility] Last Admin: 06/05/18 17:35 Dose: 40 mg - Labs Labs: 06/05/18 06:10 06/05/18 06:10 PT 12.8 SECONDS (9.4-12.5) H 05/20/18 10:45 INR 1.11 (0.93-1.08) H 05/20/18 10:45 APTT 24.7 Seconds (25.1-36.5) L 05/20/18 10:45 Assessment and Plan - Assessment and Plan (Free Text) Plan: Pt seen and examined. I have reviewed the note of the medical record librarian and agree with it. I have discussed the assessment and plan with the resident. I have reviewed the patient's labs and medications. Pt is on Solumedrol for COPD. Amilcar meredith Sz d/o. DNR/DNI. On IVF with NS.
[2018-06-05] MEDS: Acetylcysteine 20% Inhal Soln (4ml) INH SCH (07:21)
[2018-06-05] MEDS: Budesonide 0.5 mg/2 ml Inhal Susp UD IH SCH ×2 (07:21→19:38)
[2018-06-05 08:11] LABS: LYMPHOCYTE 4 % (22.0-35.0); MICROCYTOSIS 1+; MONOCYTE 3 % (1.0-6.0); NEUTROPHIL 93 % (50.0-70.0); NUCLEATED RED BLOOD CELL 1 %; PLATELET ESTIMATE LOW (NORMAL)
[2018-06-05 08:14] LABS: PLATELET COUNT MANUAL 51 K/mm3 (120-450)
--- NOTE | 2018-06-05 09:28 | CP.PCM.CON ---
History of Present Illness - History of Present Illness History of Present Illness: Palliative consult requested by Dr Nila Darby Reason: Goals of care and advance care planning 63 year old female with history of metastatic NSCLC, s/p craniotomy who presented on 05/20/18 with shortness of breath, altered mental status and swelling of lower extremities. Shortness of breath , O2 sat decreased and she was transferred to ICU for aggressive monitoring. She has since stabilized and is now seen on med surgical unit. MRI of brain showed post surgical changes, no new evidence of metastatic. Chest CT of chest showed multiple pulmonary nodule sin left lung,emphysema and fibrotic changes in both upper lobes, no evidence of PE. US of lower extremities negative for DVT's Initial labs showing anemia, thrombocytopenia,normal Bun, creatinine,elevated AST. PMHX; NSCLC mets to brain, s/p craniotomy, COPD,dementia, osteoarthritis Social History: Smoker, no alcohol or illicit drug use. Family History: Non contributory. Advance Care Planning: The patient does not have an Advanced Directive but is DNR/DNI Vital Signs:T 97.8, P 67, BP 100/70, R 18, O2 sat 100% on O2 Labs: Wbc 4.2,Hgb 9.3, Plt 38, Na 145, K 3.8, Bun 26,Creat. 0.6, Ast 53, Alt 31 , Total protein 5.2, albumin 2.3 Review of Systems: As per HPI, altered unable to obtain. Past Patient History - Infectious Disease Hx of Infectious Diseases: None - Past Social History Smoking Status: Current Some Days Smoker - CARDIAC Hx Hypertension: Yes - PULMONARY Hx Chronic Obstructive Pulmonary Disease (COPD): Yes - NEUROLOGICAL Hx Neurological Disorder: No Hx Paralysis: No - HEENT Hx HEENT Problems: No - RENAL Hx Chronic Kidney Disease: No - ENDOCRINE/METABOLIC Hx Endocrine Disorders: No - HEMATOLOGICAL/ONCOLOGICAL Hx Blood Transfusions: Yes Hx Blood Transfusion Reaction: No - INTEGUMENTARY Hx Dermatological Problems: No - MUSCULOSKELETAL/RHEUMATOLOGICAL Hx Musculoskeletal Disorders: Yes - GASTROINTESTINAL Hx Gastrointestinal Disorders: No - GENITOURINARY/GYNECOLOGICAL Hx Genitourinary Disorders: Yes (HYSTERECTOMY) - PSYCHIATRIC Hx Psychophysiologic Disorder: No Hx Depression: No Hx Emotional Abuse: No Hx Physical Abuse: No Hx Substance Use: No - SURGICAL HISTORY Hx Hysterectomy: Yes Other/Comment: brain surgery - ANESTHESIA Hx Anesthesia Reactions: No Hx Malignant Hyperthermia: No Meds Allergies/Adverse Reactions: Allergies Allergy/AdvReac Type Severity Reaction Status Date / Time No Known Allergies Allergy Verified 05/20/18 14:01 - Medications Medications: Current Medications Acetylcysteine (Acetylcysteine 20%) 3 ml INH BIDRESP [facility] Last Admin: 06/05/18 07:21 Dose: 3 ml Budesonide (Pulmicort Respules) 0.5 mg IH [id number] [facility] Last Admin: 06/05/18 07:21 Dose: 0.5 mg Enoxaparin Sodium (Lovenox) 60 mg SC 0600,1800 [facility] PRN Reason: Protocol Last Admin: 06/05/18 06:00 Dose: 60 mg Ergocalciferol (Drisdol 50,000 Intl Units Cap) 1 cap PO Q7D [facility] Last Admin: 06/03/18 10:14 Dose: 1 cap Famotidine (Pepcid) 40 mg PO HS [facility] Last Admin: 06/04/18 21:36 Dose: 40 mg Folic Acid (Folic Acid) 1 mg PO DAILY [facility] Last Admin: 06/04/18 10:54 Dose: 1 mg Sodium Chloride (Sodium Chloride 0.9%) 1,000 mls @ 60 mls/hr IV .[id number] [facility] Last Admin: 06/03/18 14:45 Dose: 60 mls/hr Meropenem (Merrem Iv 1 Gm Premix) 50 mls @ 100 mls/hr IVPB Q12 [facility] PRN Reason: Protocol Stop: 06/10/18 10:01 Last Admin: 06/04/18 21:32 Dose: 100 mls/hr Levalbuterol HCl (Xopenex) 0.63 mg IH [id number] [facility] Last Admin: 06/05/18 07:22 Dose: 0.63 mg Levetiracetam (Keppra) 500 mg PO Q12 [facility] Last Admin: 06/04/18 21:36 Dose: 500 mg Memantine (Namenda) 10 mg PO HS [facility] Last Admin: 06/04/18 21:36 Dose: 10 mg Methylprednisolone (Solu-Medrol) 40 mg IVP Q12 [facility] Last Admin: 06/04/18 21:36 Dose: 40 mg Metoprolol Tartrate (Lopressor) 75 mg PO BID [facility] Last Admin: 06/04/18 18:11 Dose: 75 mg Morphine Sulfate (Morphine) 4 mg IVP Q4H PRN PRN Reason: Pain, moderate (4-7) Last Admin: 06/04/18 18:12 Dose: 4 mg Non-Formulary Medication (Lubiprostone [Amitiza]) 24 mg PO BID [facility] Last Admin: 06/04/18 10:55 Dose: Not Given Nystatin (Nystatin Oral Susp) 5 ml PO QID [facility] Last Admin: 06/04/18 21:36 Dose: 5 ml Nystatin (Mycostatin Cream) 1 ea TOP TID [facility] Last Admin: 06/04/18 10:54 Dose: 1 applic Pantoprazole Sodium (Protonix Ec Tab) 40 mg PO DAILY [facility] Last Admin: 06/04/18 10:54 Dose: 40 mg Verapamil HCl (Verapamil Inj) 2.5 mg IVP Q6H PRN PRN Reason: for heart rate >120 Last Admin: 05/28/18 23:32 Dose: 2.5 mg Verapamil HCl (Calan Tab) 40 mg PO TID [facility] Last Admin: 06/04/18 18:12 Dose: 40 mg Physical Exam - Constitutional Appears: Chronically Ill - Head Exam Head Exam: NORMAL INSPECTION - Eye Exam Eye Exam: Normal appearance, PERRL - ENT Exam ENT Exam: Mucous Membranes Moist, Normal Oropharynx - Neck Exam Neck exam: Positive for: Normal Inspection - Respiratory Exam Respiratory Exam: Decreased Breath Sounds, Rhonchi - Cardiovascular Exam Cardiovascular Exam: REGULAR RHYTHM, +S1, +S2 - GI/Abdominal Exam GI & Abdominal Exam: Normal Bowel Sounds, Soft - Extremities Exam Extremities exam: Positive for: pedal pulses present Additional comments: 2+ edema of both lower extremities - Skin Skin Exam: Dry, Pallor Results - Vital Signs Recent Vital Signs: Last Vital Signs Temp 97.8 F 06/05/18 06:00 Pulse 67 06/05/18 06:00 Resp 18 06/05/18 06:00 BP 104/71 06/05/18 06:00 Pulse Ox 100 06/05/18 06:00 - Labs Result Diagrams: 06/06/18 06:30 06/06/18 06:30 Labs: Laboratory Results - last 24 hr 06/04/18 06/04/18 06/05/18 10:24 16:48 06:10 WBC 4.2 L RBC 2.79 L Hgb 9.3 L Hct 27.3 L MCV 97.8 MCH 33.3 MCHC 34.1 RDW 14.6 H Plt Count 38 L* Manual Plt Count 51 L Gran % 91.6 H Lymph % (Auto) 5.5 L [place] % (Auto) 2.9 Eos % (Auto) 0.0 L Baso % (Auto) 0.0 Gran # 3.80 Lymph # (Auto) 0.2 L [place] # (Auto) 0.1 Eos # (Auto) 0.0 Baso # (Auto) 0.00 Neutrophils % (Manual) 93 H Lymphocytes % (Manual) 4 L Monocytes % (Manual) 3 Nucleated RBC % 1 Platelet Evaluation Low Microcytosis (manual) 1+ pCO2 26 L pO2 47.0 L HCO3 18.9 L ABG pH 7.47 H ABG Total CO2 19.7 L ABG O2 Saturation 87.3 L ABG O2 Content 11.7 L ABG Base Excess -3.8 L ABG Hemoglobin 9.8 L ABG Carboxyhemoglobin 2.0 H POC ABG HHb (Measured) 12.3 H ABG Methemoglobin 0.9 ABG O2 Capacity 13.4 L Hgb O2 Saturation 84.9 L FiO2 50.0 Sodium Potassium Chloride Carbon Dioxide Anion Gap BUN Creatinine Est GFR ( Amer) Est GFR (Non-Af Amer) Random Glucose Calcium Magnesium 1.9 Total Bilirubin AST ALT Alkaline Phosphatase Total Protein Albumin Globulin Albumin/Globulin Ratio 06/05/18 06:10 WBC RBC Hgb Hct MCV MCH MCHC RDW Plt Count Manual Plt Count Gran % Lymph % (Auto) [place] % (Auto) Eos % (Auto) Baso % (Auto) Gran # Lymph # (Auto) [place] # (Auto) Eos # (Auto) Baso # (Auto) Neutrophils % (Manual) Lymphocytes % (Manual) Monocytes % (Manual) Nucleated RBC % Platelet Evaluation Microcytosis (manual) pCO2 pO2 HCO3 ABG pH ABG Total CO2 ABG O2 Saturation ABG O2 Content ABG Base Excess ABG Hemoglobin ABG Carboxyhemoglobin POC ABG HHb (Measured) ABG Methemoglobin ABG O2 Capacity Hgb O2 Saturation FiO2 Sodium 145 Potassium 3.8 Chloride 115 H Carbon Dioxide 23 Anion Gap 11 BUN 26 H Creatinine 0.6 L Est GFR ( Amer) > 60 Est GFR (Non-Af Amer) > 60 Random Glucose 102 Calcium 9.3 Magnesium Total Bilirubin 0.3 AST 53 H ALT 31 Alkaline Phosphatase 109 Total Protein 5.2 L Albumin 2.3 L Globulin 2.9 Albumin/Globulin Ratio 0.8 L Assessment & Plan - Assessment and Plan (Free Text) Assessment: 63 year old female with history of COPD, dementia, NSCL cancer mets to bone & brain s/p craniotomy who is admitted with sepsis, HCAP, anemia, thrombocytopenia , hypoxia. The patient is dyspneic,tachycardic, using high flow O2.Unable to follow command. Voice mail left for patients daughters, Haley. Intent to discuss goals of care and advance care planning, Plan: Sepsis/HCAP: being followed by ID, continue Merrem Hypoxia:NSCLC/COPD/HCAP; Patient on high flow, monitor ABG's as needed, chest x rays. Continue nebulizers Altered mental status:dementia, delirium, metabolic encephalopathy, Continue Namenda Goals of care and advance care planning
[2018-06-05] MEDS: MethylPREDNISolone 40 mg Vial IVP SCH ×2 (10:40→21:29)
[2018-06-05] MEDS: Nystatin 100,000 Units/ml Oral Susp 5 ml UD PO SCH ×4 (10:40→21:28)
[2018-06-05] MEDS: Pantoprazole 40 mg EC Tab PO SCH (10:44)
[2018-06-05] MEDS: Meropenem IV 1 gm in NS 50 ML IVPB SCH ×2 (10:44→21:29)
[2018-06-05] MEDS: LUBIPROSTONE 24 MG PO SCH ×2 (10:45→17:35)
[2018-06-05] MEDS: Nystatin 100,000 Units/gm Cream(15 gm) TOP SCH ×3 (10:45→17:36)
[2018-06-05] MEDS: Morphine 4 mg/ml ISec IVP PRN ×2 (10:49→17:34)
--- NOTE | 2018-06-05 16:55 | PN ---
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 SUBJECTIVE: The patient denies any chest pain, shortness of breath, any palpitation. PHYSICAL EXAMINATION GENERAL: Lying flat on the bed, not in any apparent distress. VITAL SIGNS: Temperature afebrile, heart rate 66, blood pressure 104/71. HEENT: PERRLA intact. NECK: Supple. No carotid bruit or thyromegaly. CHEST: Clear to auscultation. HEART: S1 and S2 regular. ABDOMEN: Soft. EXTREMITIES: Clubbing and cyanosis negative. LABORATORY DATA: WBC 4.2, hemoglobin 9.3, hematocrit 27.3, platelet count 38,000. Chemistry shows sodium 145, potassium 3.8, chloride 115, carbon dioxide 23, anion gap of 11, BUN 26, creatinine 0.6. Total protein 5.2, albumin 2.3. IMPRESSION: Protein-calorie malnutrition, severe, which was not present on admission; anemia; thrombocytopenia; non-small cell cancer with metastasis, chronic obstructive pulmonary disease, hypertension, history of inferior vena cava thrombosis, came with shortness of breath. RECOMMENDATIONS: Continue increased nutritional support. Monitor electrolytes, supplement as needed. Monitor for thrombocytopenia. The patient is on verapamil 40 mg t.i.d. Heart rate is well controlled. Monitor closely. The patient is on enoxaparin for inferior vena cava thrombosis, followed by because the patient has severe thrombocytopenia as well. Monitor for spontaneous bleeding. The patent's condition is critical. director long term care prognosis is guarded. We will follow with you. Thank you, Dr. Darby, for providing us the opportunity in taking care of the patient, Nicol Brannon. Chica Simon MD
[2018-06-05] MEDS: Levalbuterol 0.63 MG/3 ML Inhal Soln UD IH PRN (19:37)
--- NOTE | 2018-06-05 20:04 | PN ---
DATE: 06/05/2018 PULMONARY PROGRESS NOTE REFERRING PHYSICIAN: Yaneth Darby MD. SUBJECTIVE: Patient is lying in the bed, head at 45 degrees. Family is at bedside. On high-flow oxygen with 40% oxygen. Tolerating feeding well. No hemoptysis, no hematemesis, no hematuria. No diarrhea reported. OBJECTIVE: VITAL SIGNS: Temperature is 98, heart rate 75, respiratory is 20, blood pressure 117/66, pulse ox 90% on 40% high-flow. HEENT: Moist mucous membrane. Crowded airway. NECK: Supple. No JVD. LUNGS: Have scattered rhonchi and crackles. HEART: S1 and S2. ABDOMEN: Soft, nontender, no organomegaly. EXTREMITIES: Not much edema. NEUROLOGICAL: Awake, alert, and follows simple command. MEDICATIONS: She is on Calan 40 mg three times a day, vitamin D 50,000 units every 7 days, folic acid 1 mg daily, Keppra 500 mg twice a day, metoprolol tartrate 75 mg twice a day, Lovenox 60 mg every 12 hour, Amitiza 24 mg twice a day, meropenem 1 g every 12 hour, morphine 4 mg every 4 hour p.r.n., Mycostatin to affected area twice a day, Namenda 10 mg at bedtime, nystatin oral suspension four times a day, Pepcid 40 mg at bedtime, Protonix 40 mg daily, Pulmicort inhaled twice a day, IV fluid normal saline 60 mL per hour, Solu-Medrol 40 mg every 12 hour, verapamil mg every 6 hour p.r.n., Xopenex p.r.n. LABORATORY DATA: Shows hemoglobin 9.3, hematocrit 27.3, WBC 4.2, platelet count is 51. Sodium 145, potassium 3.8, chloride 115, bicarbonate 23, BUN 26, creatinine 0.6, glucose 102, calcium 9.3. AST 53, ALT 31, alk phos is 109, albumin is 2.3. IMPRESSION AND PLAN: Sepsis, pulmonary infiltrate, chronic obstructive lung disease, non-small cell lung cancer with metastatic disease to the brain and bone, history of craniectomy for resection of tumor, hypertension, and renal insufficiency. Spoke to family at bedside. All the questions answered. Also spoke to Palliative Care. Overall, poor prognosis. Continue steroids and bronchodilators, antibiotics, beta-blockers. Thank you and we will follow with you. Chica Palmer MD
[2018-06-05] MEDS: Sodium Chloride 0.9% 1,000 ML IV SCH (21:29)
--- NOTE | 2018-06-05 22:39 | PN ---
DATE: 06/05/2018 SUBJECTIVE: The patient is in bed, in no acute distress, nontoxic. PHYSICAL EXAMINATION: VITAL SIGNS: Temperature is 97, blood pressure is 113/70, respiratory rate of 18. HEENT: Unremarkable. NECK: Supple. LUNGS: Have decreased breath sounds. HEART: Normal S1 and S2. ABDOMEN: Soft and nontender. LABORATORY DATA: Reveals a white count of 4.2, hemoglobin of 9, BUN 26, creatinine of 0.6. Urinalysis is noted and urine for Legionella is negative. Microbiology reveals the cultures are negative and review of orders reveals the patient to be on meropenem, Solu-Medrol. Jennifer Larson's consultation is reviewed and appreciated. ASSESSMENT AND PLAN: This is a 63-year-old with severe sepsis secondary to healthcare-associated pneumonia, non-small cell lung cancer, metastasis to the brain, history of craniotomy, admitted with severe sepsis secondary to healthcare-associated pneumonia. Negative procalcitonin. Negative methicillin-resistant Staphylococcus aureus nasal screen, on day #5 of meropenem. Would complete 4 to 7 days of antibiotics. Overall, prognosis is quite poor for this patient. Serge Kruse MD
[2018-06-06] MEDS: Morphine 4 mg/ml ISec IVP PRN ×2 (00:52→10:56)
[2018-06-06] MEDS: Levalbuterol 0.63 MG/3 ML Inhal Soln UD IH SCH ×4 (01:09→19:59)
[2018-06-06] MEDS: Enoxaparin 60 mg Syringe SC SCH (05:37)
--- NOTE | 2018-06-06 06:53 | CP.PCM.PN ---
Subjective - Date & Time of Evaluation Date of Evaluation: 06/06/18 Time of Evaluation: 07:00 - Subjective Subjective: Chris Browning DO PGY-2, Hematology and Oncology Progress Note for Dr. Carranza Patient seen and examined at bedside. Nurse reports patient's boyfriend visited her yesterday. Patient is doing better with her breathing and her pain is much better controlled. Patient is arousable, sleeping currently. No adverse events noted overnight. Objective - Vital Signs/Intake and Output Vital Signs (last 24 hours): Temp Pulse Resp BP Pulse Ox 98 F 82 20 112/80 92 L 06/05/18 22:38 06/05/18 22:38 06/05/18 22:38 06/05/18 22:38 06/05/18 22:38 Intake and Output: 06/05/18 06/06/18 18:59 06:59 Intake Total 120 360 Balance 120 360 - Medications Medications: Current Medications Budesonide (Pulmicort Respules) 0.5 mg IH [id number] [facility] Last Admin: 06/05/18 19:38 Dose: 0.5 mg Enoxaparin Sodium (Lovenox) 60 mg SC 0600,1800 [facility] PRN Reason: Protocol Last Admin: 06/06/18 05:37 Dose: 60 mg Ergocalciferol (Drisdol 50,000 Intl Units Cap) 1 cap PO Q7D [facility] Last Admin: 06/03/18 10:14 Dose: 1 cap Famotidine (Pepcid) 40 mg PO HS [facility] Last Admin: 06/05/18 21:28 Dose: 40 mg Folic Acid (Folic Acid) 1 mg PO DAILY [facility] Last Admin: 06/05/18 10:41 Dose: 1 mg Sodium Chloride (Sodium Chloride 0.9%) 1,000 mls @ 60 mls/hr IV .[id number] [facility] Last Admin: 06/05/18 21:29 Dose: 60 mls/hr Meropenem (Merrem Iv 1 Gm Premix) 50 mls @ 100 mls/hr IVPB Q12 [facility] PRN Reason: Protocol Stop: 06/10/18 10:01 Last Admin: 06/05/18 21:29 Dose: 100 mls/hr Levalbuterol HCl (Xopenex) 0.63 mg IH [id number] [facility] Last Admin: 06/06/18 01:09 Dose: 0.63 mg Levetiracetam (Keppra) 500 mg PO Q12 [facility] Last Admin: 06/05/18 21:28 Dose: 500 mg Memantine (Namenda) 10 mg PO HS [facility] Last Admin: 06/05/18 21:28 Dose: 10 mg Methylprednisolone (Solu-Medrol) 40 mg IVP Q12 [facility] Last Admin: 06/05/18 21:29 Dose: 40 mg Metoprolol Tartrate (Lopressor) 75 mg PO BID [facility] Last Admin: 06/05/18 17:34 Dose: 75 mg Morphine Sulfate (Morphine) 4 mg IVP Q4H PRN PRN Reason: Pain, moderate (4-7) Last Admin: 06/06/18 00:52 Dose: 4 mg Non-Formulary Medication (Lubiprostone [Amitiza]) 24 mg PO BID [facility] Last Admin: 06/05/18 17:35 Dose: Not Given Nystatin (Nystatin Oral Susp) 5 ml PO QID [facility] Last Admin: 06/05/18 21:28 Dose: 5 ml Nystatin (Mycostatin Cream) 1 ea TOP TID [facility] Last Admin: 06/05/18 17:36 Dose: 1 applic Pantoprazole Sodium (Protonix Ec Tab) 40 mg PO DAILY [facility] Last Admin: 06/05/18 10:44 Dose: 40 mg Verapamil HCl (Verapamil Inj) 2.5 mg IVP Q6H PRN PRN Reason: for heart rate >120 Last Admin: 05/28/18 23:32 Dose: 2.5 mg Verapamil HCl (Calan Tab) 40 mg PO TID [facility] Last Admin: 06/05/18 17:35 Dose: 40 mg - Labs Labs: 06/05/18 06:10 06/05/18 06:10 PT 12.8 SECONDS (9.4-12.5) H 05/20/18 10:45 INR 1.11 (0.93-1.08) H 05/20/18 10:45 APTT 24.7 Seconds (25.1-36.5) L 05/20/18 10:45 - Constitutional Appears: Non-toxic, No Acute Distress - Head Exam Additional comments: craniotomy scar noted, rai facies - Eye Exam Eye Exam: EOMI, Normal appearance - ENT Exam ENT Exam: Mucous Membranes Moist Additional comments: no petecheia - Respiratory Exam Respiratory Exam: Wheezes. absent: Accessory Muscle Use - Cardiovascular Exam Cardiovascular Exam: RRR, +S1, +S2 - GI/Abdominal Exam GI & Abdominal Exam: Soft, Normal Bowel Sounds - Neurological Exam Neurological Exam: Awake - Psychiatric Exam Psychiatric exam: Normal Affect, Normal Mood - Skin Skin Exam: Dry, Intact, Normal Color, Warm Assessment and Plan - Assessment and Plan (Free Text) Assessment: 63 year-old female with a past medical history of metastatic non-small cell lung cancer with metastasis to the brain status post craniotomy, who came in with confusion, fever, and dyspnea on 05/21/18. CT/MRI of the head were negative. Patient was was found to have multifocal infiltrates consistent with healthcare-associated pneumonia and sepsis requiring ICU admission. Patient started on broad-spectrum antibiotic, stress dose steroids, and Keppra for seizure prophylaxis, high flow oxygen with humidified 70% FiO2. Patient clinical status has improved, but patient has a poor prognosis overall. Patients blood cell indices show a progressive pancytopenia, with the manual platelet count today being. Manual platelet count shows a level of 54. Patient is currently on Solumedrol 40 mg q12h [facility] given her likely adrenal insuffiency. Patient is DNR and DNI. Palliative care consulted. We will continue to check daily manual platelet counts as well as CBC with differential , manual platele count, and comprehensive metabolic panel. Case discussed with Dr. Dillon Browning PGY2
--- NOTE | 2018-06-06 06:53 | CP.PCM.PN ---
Subjective - Date & Time of Evaluation Date of Evaluation: 06/06/18 Objective - Vital Signs/Intake and Output Vital Signs (last 24 hours): Temp Pulse Resp BP Pulse Ox 98 F 82 20 112/80 92 L 06/05/18 22:38 06/05/18 22:38 06/05/18 22:38 06/05/18 22:38 06/05/18 22:38 Intake and Output: 06/05/18 06/06/18 18:59 06:59 Intake Total 120 360 Balance 120 360 - Medications Medications: Current Medications Budesonide (Pulmicort Respules) 0.5 mg IH [id number] [facility] Last Admin: 06/05/18 19:38 Dose: 0.5 mg Enoxaparin Sodium (Lovenox) 60 mg SC 0600,1800 [facility] PRN Reason: Protocol Last Admin: 06/06/18 05:37 Dose: 60 mg Ergocalciferol (Drisdol 50,000 Intl Units Cap) 1 cap PO Q7D [facility] Last Admin: 06/03/18 10:14 Dose: 1 cap Famotidine (Pepcid) 40 mg PO HS [facility] Last Admin: 06/05/18 21:28 Dose: 40 mg Folic Acid (Folic Acid) 1 mg PO DAILY [facility] Last Admin: 06/05/18 10:41 Dose: 1 mg Sodium Chloride (Sodium Chloride 0.9%) 1,000 mls @ 60 mls/hr IV .[id number] [facility] Last Admin: 06/05/18 21:29 Dose: 60 mls/hr Meropenem (Merrem Iv 1 Gm Premix) 50 mls @ 100 mls/hr IVPB Q12 [facility] PRN Reason: Protocol Stop: 06/10/18 10:01 Last Admin: 06/05/18 21:29 Dose: 100 mls/hr Levalbuterol HCl (Xopenex) 0.63 mg IH [id number] [facility] Last Admin: 06/06/18 01:09 Dose: 0.63 mg Levetiracetam (Keppra) 500 mg PO Q12 [facility] Last Admin: 06/05/18 21:28 Dose: 500 mg Memantine (Namenda) 10 mg PO HS [facility] Last Admin: 06/05/18 21:28 Dose: 10 mg Methylprednisolone (Solu-Medrol) 40 mg IVP Q12 [facility] Last Admin: 06/05/18 21:29 Dose: 40 mg Metoprolol Tartrate (Lopressor) 75 mg PO BID [facility] Last Admin: 06/05/18 17:34 Dose: 75 mg Morphine Sulfate (Morphine) 4 mg IVP Q4H PRN PRN Reason: Pain, moderate (4-7) Last Admin: 06/06/18 00:52 Dose: 4 mg Non-Formulary Medication (Lubiprostone [Amitiza]) 24 mg PO BID [facility] Last Admin: 06/05/18 17:35 Dose: Not Given Nystatin (Nystatin Oral Susp) 5 ml PO QID [facility] Last Admin: 06/05/18 21:28 Dose: 5 ml Nystatin (Mycostatin Cream) 1 ea TOP TID [facility] Last Admin: 06/05/18 17:36 Dose: 1 applic Pantoprazole Sodium (Protonix Ec Tab) 40 mg PO DAILY [facility] Last Admin: 06/05/18 10:44 Dose: 40 mg Verapamil HCl (Verapamil Inj) 2.5 mg IVP Q6H PRN PRN Reason: for heart rate >120 Last Admin: 05/28/18 23:32 Dose: 2.5 mg Verapamil HCl (Calan Tab) 40 mg PO TID [facility] Last Admin: 06/05/18 17:35 Dose: 40 mg - Labs Labs: 06/05/18 06:10 06/05/18 06:10 PT 12.8 SECONDS (9.4-12.5) H 05/20/18 10:45 INR 1.11 (0.93-1.08) H 05/20/18 10:45 APTT 24.7 Seconds (25.1-36.5) L 05/20/18 10:45
[2018-06-06 07:00] LABS: GRAN # 3.39 (1.4-6.5); GRAN % 85.8 % (50.0-68.0); HEMOGLOBIN 9.6 g/dL (12.0-16.0); LYMPH # 0.5 (1.2-3.4); LYMPH % 11.4 % (22.0-35.0); MEAN CELL VOLUME 98.3 fl (80.0-105.0); MEAN CORPUSCULAR HGB CONC 33.6 g/dl (31.0-37.0); MONO # 0.1 (0.1-0.6); MONO % 2.8 % (1.0-6.0); RBC 2.91 10^6/uL (3.5-6.1); RED CELL DISTRIBUTION WIDTH 14.7 % (11.5-14.5)
[2018-06-06 07:14] LABS: ALB/GLOB RATIO 0.8 (1.1-1.8); ALBUMIN 2.4 g/dL (3.0-4.8); ALT/SGPT 33 U/L (7-56); AST/SGOT 47 U/L (14-36); BLOOD UREA NITROGEN 27 mg/dL (7-21); CALCIUM 9.5 mg/dL (8.4-10.5); GFR AFRICAN-AMERICAN > 60; GFR NON-AFRICAN AMERICAN > 60
[2018-06-06] MEDS: Budesonide 0.5 mg/2 ml Inhal Susp UD IH SCH ×2 (07:20→19:59)
[2018-06-06 07:21] LABS: PLATELET COUNT 39 10^3/uL (120.0-450.0)
[2018-06-06 09:08] LABS: PLATELET COUNT MANUAL 54 K/mm3 (120-450)
--- NOTE | 2018-06-06 10:10 | CP.PCM.PN ---
<Laine Haines - Last Filed: 06/06/18 10:05> Subjective - Date & Time of Evaluation Date of Evaluation: 06/06/18 Time of Evaluation: 07:00 - Subjective Subjective: Medicine Progress Note for Dr. Garcia (covering for Dr. Darby), iLllian Haines PGY3 Patient seen and examined at bedside. I spoke with nursing staff and there were no acute overnight events. Patient is lethargic on examination and on high flow. ROS could not be obtained. Objective - Vital Signs/Intake and Output Vital Signs (last 24 hours): Temp Pulse Resp BP Pulse Ox 97.2 F L 67 18 115/80 95 06/06/18 06:00 06/06/18 06:00 06/06/18 07:20 06/06/18 06:00 06/06/18 06:00 Intake and Output: 06/06/18 06/06/18 06:59 18:59 Intake Total 1080 Balance 1080 - Medications Medications: Current Medications Budesonide (Pulmicort Respules) 0.5 mg IH [id number] [facility] Last Admin: 06/06/18 07:20 Dose: 0.5 mg Enoxaparin Sodium (Lovenox) 60 mg SC 0600,1800 [facility] PRN Reason: Protocol Last Admin: 06/06/18 05:37 Dose: 60 mg Ergocalciferol (Drisdol 50,000 Intl Units Cap) 1 cap PO Q7D [facility] Last Admin: 06/03/18 10:14 Dose: 1 cap Famotidine (Pepcid) 40 mg PO HS [facility] Last Admin: 06/05/18 21:28 Dose: 40 mg Folic Acid (Folic Acid) 1 mg PO DAILY [facility] Last Admin: 06/05/18 10:41 Dose: 1 mg Sodium Chloride (Sodium Chloride 0.9%) 1,000 mls @ 60 mls/hr IV .[id number] [facility] Last Admin: 06/05/18 21:29 Dose: 60 mls/hr Levalbuterol HCl (Xopenex) 0.63 mg IH [id number] [facility] Last Admin: 06/06/18 07:20 Dose: 0.63 mg Levetiracetam (Keppra) 500 mg PO Q12 [facility] Last Admin: 06/05/18 21:28 Dose: 500 mg Memantine (Namenda) 10 mg PO HS [facility] Last Admin: 06/05/18 21:28 Dose: 10 mg Methylprednisolone (Solu-Medrol) 40 mg IVP Q12 [facility] Last Admin: 06/05/18 21:29 Dose: 40 mg Metoprolol Tartrate (Lopressor) 75 mg PO BID [facility] Last Admin: 06/05/18 17:34 Dose: 75 mg Morphine Sulfate (Morphine) 4 mg IVP Q4H PRN PRN Reason: Pain, moderate (4-7) Last Admin: 06/06/18 00:52 Dose: 4 mg Non-Formulary Medication (Lubiprostone [Amitiza]) 24 mg PO BID [facility] Last Admin: 06/05/18 17:35 Dose: Not Given Nystatin (Nystatin Oral Susp) 5 ml PO QID [facility] Last Admin: 06/05/18 21:28 Dose: 5 ml Nystatin (Mycostatin Cream) 1 ea TOP TID [facility] Last Admin: 06/05/18 17:36 Dose: 1 applic Pantoprazole Sodium (Protonix Ec Tab) 40 mg PO DAILY [facility] Last Admin: 06/05/18 10:44 Dose: 40 mg Verapamil HCl (Verapamil Inj) 2.5 mg IVP Q6H PRN PRN Reason: for heart rate >120 Last Admin: 05/28/18 23:32 Dose: 2.5 mg Verapamil HCl (Calan Tab) 40 mg PO TID [facility] Last Admin: 06/05/18 17:35 Dose: 40 mg - Labs Labs: 06/06/18 06:30 06/06/18 06:30 PT 12.8 SECONDS (9.4-12.5) H 05/20/18 10:45 INR 1.11 (0.93-1.08) H 05/20/18 10:45 APTT 24.7 Seconds (25.1-36.5) L 05/20/18 10:45 - Constitutional Appears: Chronically Ill - Eye Exam Eye Exam: Normal appearance, PERRL - ENT Exam ENT Exam: Mucous Membranes Moist - Respiratory Exam Respiratory Exam: Rhonchi, NORMAL BREATHING PATTERN. absent: Rales, Wheezes - Cardiovascular Exam Cardiovascular Exam: REGULAR RHYTHM, +S1, +S2. absent: Gallop, Rubs, Murmur - GI/Abdominal Exam GI & Abdominal Exam: Distended, Soft, Normal Bowel Sounds. absent: Tenderness, Rebound - Extremities Exam Extremities Exam: absent: Pedal Edema - Neurological Exam Neurological Exam: absent: Awake - Skin Skin Exam: Dry, Warm Assessment and Plan - Assessment and Plan (Free Text) Assessment: This is a 63yo female with past medial history of COPD, NSCLL with mets to brain s/p crainiotomy and mets to bone who was admitted for 1. AMS - secondary to HCAP v. delirium v. metabolic encephalopathy with underlying mild cognitive impairment 2. Sepsis (improving) - secondary to HCAP - Completed 5 days of Merrem 3. Pancytopenia (stable) - can be secondary to sepsis v. medications 4. Hypoxia (improved) - secondary to HCAP as well as lung cancer - Patient is on high flow 5. IVC thrombus - On Lovenox 6. COPD 7. Sinus tachycardia (resolved) - secondary to sepsis, lung infiltrate, lung ca Plan: Patient completed course of Merrem as per ID. Will monitor off of antibiotics. As per pulm, continue Pulmicort, Xopenex and Mucomyst as well as Solumedrol for COPD. Patient is on IV fluids and Keppra for seizure prophylaxis. Continue Lopresser and Verapmil as per cardiology. Oncology recommendations appreciated. Palliative care is on consult. Prognosis is guarded. Patient is DNR/DNI. Continue DVT and GI prophylaxis. Will continue to monitor CBC for pancytopenia. Case seen, discussed and reviewed with Dr. Garcia. Lillian Haines PGY3 <Jayden Garcia S - Last Filed: 06/08/18 09:20> Objective - Vital Signs/Intake and Output Vital Signs (last 24 hours): Temp Pulse Resp BP Pulse Ox 97.5 F L 81 22 111/81 98 06/08/18 06:00 06/08/18 06:00 06/08/18 06:00 06/08/18 06:00 06/08/18 06:00 Intake and Output: 06/08/18 06/08/18 06:59 18:59 Intake Total 120 Output Total 800 Balance -680 - Medications Medications: Current Medications Budesonide (Pulmicort Respules) 0.5 mg IH [id number] [facility] Last Admin: 06/08/18 07:22 Dose: 0.5 mg Ergocalciferol (Drisdol 50,000 Intl Units Cap) 1 cap PO Q7D [facility] Last Admin: 06/03/18 10:14 Dose: 1 cap Famotidine (Pepcid) 40 mg PO HS [facility] Last Admin: 06/07/18 21:44 Dose: 40 mg Folic Acid (Folic Acid) 1 mg PO DAILY [facility] Last Admin: 06/07/18 10:26 Dose: 1 mg Sodium Chloride (Sodium Chloride 0.9%) 1,000 mls @ 60 mls/hr IV .[id number] [facility] Last Admin: 06/07/18 15:09 Dose: 60 mls/hr Levalbuterol HCl (Xopenex) 0.63 mg IH [id number] [facility] Last Admin: 06/08/18 07:22 Dose: 0.63 mg Levetiracetam (Keppra) 500 mg PO Q12 [facility] Last Admin: 06/07/18 21:44 Dose: 500 mg Memantine (Namenda) 10 mg PO [facility] Last Admin: 06/07/18 21:44 Dose: 10 mg Methylprednisolone (Solu-Medrol) 20 mg IVP Q12 [facility] Last Admin: 06/07/18 21:43 Dose: 20 mg Metoprolol Tartrate (Lopressor) 75 mg PO BID [facility] Last Admin: 06/07/18 17:34 Dose: 75 mg Morphine Sulfate (Morphine) 4 mg IVP Q4H PRN PRN Reason: Pain, moderate (4-7) Last Admin: 06/07/18 15:41 Dose: 4 mg Non-Formulary Medication (Lubiprostone [Amitiza]) 24 mg PO BID [facility] Last Admin: 06/07/18 10:28 Dose: Not Given Nystatin (Nystatin Oral Susp) 5 ml PO QID [facility] Last Admin: 06/07/18 21:44 Dose: 5 ml Nystatin (Mycostatin Cream) 1 ea TOP TID [facility] Last Admin: 06/07/18 17:35 Dose: 1 applic Pantoprazole Sodium (Protonix Ec Tab) 40 mg PO DAILY [facility] Last Admin: 06/07/18 10:26 Dose: 40 mg Verapamil HCl (Verapamil Inj) 2.5 mg IVP Q6H PRN PRN Reason: for heart rate >120 Last Admin: 05/28/18 23:32 Dose: 2.5 mg Verapamil HCl (Calan Tab) 40 mg PO TID [facility] Last Admin: 06/07/18 17:35 Dose: 40 mg - Labs Labs: 06/06/18 06:30 06/07/18 06:30 PT 12.8 SECONDS (9.4-12.5) H 05/20/18 10:45 INR 1.11 (0.93-1.08) H 05/20/18 10:45 APTT 24.7 Seconds (25.1-36.5) L 05/20/18 10:45 Assessment and Plan - Assessment and Plan (Free Text) Plan: Pt seen and examined on 06-06-18 and this is a late entry. I have reviewed the note of the biomedical technician and agree with it. I have discussed the assessment and plan with the resident. I have reviewed the patient's labs and medications. Pt is DNR. Pt is off Abx.
[2018-06-06] MEDS: Meropenem IV 1 gm in NS 50 ML IVPB SCH (10:40)
[2018-06-06] MEDS: Pantoprazole 40 mg EC Tab PO SCH (10:52)
[2018-06-06] MEDS: MethylPREDNISolone 40 mg Vial IVP SCH ×2 (10:52→21:43)
[2018-06-06] MEDS: LUBIPROSTONE 24 MG PO SCH ×2 (10:54→19:13)
[2018-06-06] MEDS: Nystatin 100,000 Units/gm Cream(15 gm) TOP SCH ×4 (10:55→19:14)
[2018-06-06] MEDS: Nystatin 100,000 Units/ml Oral Susp 5 ml UD PO SCH ×4 (10:55→21:43)
--- NOTE | 2018-06-06 14:25 | CP.PCM.PN ---
Subjective - Date & Time of Evaluation Date of Evaluation: 06/06/18 Time of Evaluation: 13:00 - Subjective Subjective: Lethargic, high flow O2 in use. Objective - Vital Signs/Intake and Output Vital Signs (last 24 hours): Temp Pulse Resp BP Pulse Ox 97.2 F L 67 18 115/80 95 06/06/18 06:00 06/06/18 10:53 06/06/18 11:20 06/06/18 10:53 06/06/18 06:00 Intake and Output: 06/06/18 06/06/18 06:59 18:59 Intake Total 1080 Balance 1080 - Medications Medications: Current Medications Budesonide (Pulmicort Respules) 0.5 mg IH [id number] [facility] Last Admin: 06/06/18 07:20 Dose: 0.5 mg Enoxaparin Sodium (Lovenox) 60 mg SC 0600,1800 [facility] PRN Reason: Protocol Last Admin: 06/06/18 05:37 Dose: 60 mg Ergocalciferol (Drisdol 50,000 Intl Units Cap) 1 cap PO Q7D [facility] Last Admin: 06/03/18 10:14 Dose: 1 cap Famotidine (Pepcid) 40 mg PO HS [facility] Last Admin: 06/05/18 21:28 Dose: 40 mg Folic Acid (Folic Acid) 1 mg PO DAILY [facility] Last Admin: 06/06/18 10:53 Dose: 1 mg Sodium Chloride (Sodium Chloride 0.9%) 1,000 mls @ 60 mls/hr IV .[id number] [facility] Last Admin: 06/05/18 21:29 Dose: 60 mls/hr Levalbuterol HCl (Xopenex) 0.63 mg IH [id number] [facility] Last Admin: 06/06/18 13:10 Dose: 0.63 mg Levetiracetam (Keppra) 500 mg PO Q12 [facility] Last Admin: 06/06/18 10:53 Dose: 500 mg Memantine (Namenda) 10 mg PO HS [facility] Last Admin: 06/05/18 21:28 Dose: 10 mg Methylprednisolone (Solu-Medrol) 40 mg IVP Q12 [facility] Last Admin: 06/06/18 10:52 Dose: 40 mg Metoprolol Tartrate (Lopressor) 75 mg PO BID [facility] Last Admin: 06/06/18 10:53 Dose: 75 mg Morphine Sulfate (Morphine) 4 mg IVP Q4H PRN PRN Reason: Pain, moderate (4-7) Last Admin: 06/06/18 10:56 Dose: 4 mg Non-Formulary Medication (Lubiprostone [Amitiza]) 24 mg PO BID [facility] Last Admin: 06/06/18 10:54 Dose: Not Given Nystatin (Nystatin Oral Susp) 5 ml PO QID [facility] Last Admin: 06/06/18 10:55 Dose: Not Given Nystatin (Mycostatin Cream) 1 ea TOP TID [facility] Last Admin: 06/06/18 10:55 Dose: 1 applic Pantoprazole Sodium (Protonix Ec Tab) 40 mg PO DAILY [facility] Last Admin: 06/06/18 10:52 Dose: 40 mg Verapamil HCl (Verapamil Inj) 2.5 mg IVP Q6H PRN PRN Reason: for heart rate >120 Last Admin: 05/28/18 23:32 Dose: 2.5 mg Verapamil HCl (Calan Tab) 40 mg PO TID [facility] Last Admin: 06/06/18 10:52 Dose: 40 mg - Labs Labs: 06/06/18 06:30 06/06/18 06:30 PT 12.8 SECONDS (9.4-12.5) H 05/20/18 10:45 INR 1.11 (0.93-1.08) H 05/20/18 10:45 APTT 24.7 Seconds (25.1-36.5) L 05/20/18 10:45 - Constitutional Appears: Cachectic, Chronically Ill - Eye Exam Eye Exam: Normal appearance, PERRL - ENT Exam ENT Exam: Mucous Membranes Moist - Respiratory Exam Respiratory Exam: Accessory Muscle Use, Decreased Breath Sounds, Rhonchi - Cardiovascular Exam Cardiovascular Exam: +S1, +S2 - GI/Abdominal Exam GI & Abdominal Exam: Soft, Hypoactive Bowel Sounds Assessment and Plan - Assessment and Plan (Free Text) Assessment: 63 year old female with history of COPD, HTN , metastatic lung cancer to bone and brain, s/p craniotomy who is admitted with sepsis, respiratory insufficiency , thrombocytopenia/anemia,IVC thrombus, altered mental status Patient lethargic but appears to resting more comfortably after receiving Morphine. I spoke with daughter Haley via phone. She was at work and states she will call me later today to discuss goals of care Plan: Pain/Dyspnea: morphine 4 mg IV as needed Respiratory Insufficiency: Continue high flow 02,nebulizers, solu medrol, Pulmonary following NSCL Cancer : Follow up with oncology IVC thrombus: On Lovenox Goals of care
--- NOTE | 2018-06-06 15:16 | PN ---
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 SUBJECTIVE: The patient denies any chest pain, shortness of breath, or any palpitation. OBJECTIVE: GENERAL: Not in apparent distress. VITAL SIGNS: Temperature afebrile, heart rate 63, blood pressure 115/88. HEENT: PERRLA. Extraocular muscles intact. NECK: Supple. No carotid bruit or thyromegaly. CHEST: Clear to auscultation. HEART: S1 and S2, regular. ABDOMEN: Soft. EXTREMITIES: Clubbing and cyanosis negative. LABORATORY DATA: WBC 4, hemoglobin 9.6, hematocrit 28.6, and platelet count 39. Chemistry shows sodium 140, potassium 4.2, chloride 114, carbon dioxide , anion gap of 10. BUN 23, creatinine 0.6. Total protein 5.3, albumin 2.4, albumin-globulin ratio 0.8. IMPRESSION: A 63-year-old female with past medical history significant for non-small cell cancer with metastasis, chronic obstructive pulmonary disease, hypertension, history of inferior vena cava thrombosis, thrombocytopenia. Protein-calorie malnutrition, severe, which was not present on admission. RECOMMENDATIONS: Increase nutritional support. Overall, the patient's condition is critical. Long-term prognosis is guarded. Continue verapamil p.o. t.i.d. as blood pressure and heart rate tolerated to control tachycardia. Continue nutritional support. We will follow with you. Thank you Dr. Darby, for providing us the opportunity in taking care of the patient, Nicol Brannon. Chica Simon MD
[2018-06-06] MEDS: Sodium Chloride 0.9% 1,000 ML IV SCH (19:11)
--- NOTE | 2018-06-06 20:34 | PN ---
DATE: 06/06/2018 PULMONARY PROGRESS NOTE REFERRING PHYSICIAN: Yaneth Darby MD SUBJECTIVE: She is lying in the bed, head at 45 degrees, sleepy, arousable, getting high-flow oxygen 40% nasally. Poor appetite. Chronic pain, requiring morphine. No hematuria, diarrhea, or leg swelling. OBJECTIVE: GENERAL: In no acute distress. VITAL SIGNS: Temperature is 98, heart rate is 76, respiratory rate is 18, blood pressure 120/81, pulse ox 93% on supplemental oxygen. HEENT: Moist mucous membrane. Crowded airway. NECK: Supple. No JVD. LUNGS: Have a poor airflow with scattered rhonchi. HEART: S1 and S2. ABDOMEN: Soft, nontender. No organomegaly. EXTREMITIES: There is no edema. NEUROLOGICAL: Sleepy, arousable. MEDICATIONS: She is on Calan 40 mg three times a day, vitamin D 50,000 units every 7 days, folic acid 1 mg daily, Keppra 500 mg every 12 hours, metoprolol tartrate 75 mg twice a day, Lovenox 60 mg twice a day, Amitiza 24 mcg twice a day, morphine 4 mg every 4 hour p.r.n., nystatin to affected area three times a day, Namenda 10 mg at bedtime, Pepcid 40 mg daily, Protonix 40 mg daily, Pulmicort inhaled twice a day, IV fluid, normal saline 60 mL/hour, Solu-Medrol 40 mg every 12 hour, verapamil 2.5 mg every 6 hour p.r.n., Xopenex every 6 hours. LABORATORY DATA: Shows hemoglobin 9.6, hematocrit 28.6, WBC 4, platelet count is 54. Sodium 144, potassium 4.2, chloride 114, bicarbonate 24, BUN 27, creatinine 0.6, glucose is 99, calcium 9.5. AST 47, ALT 33, alkaline phosphatase is 115, albumin is 2.4. IMPRESSION AND PLAN: Sepsis, pulmonary infiltrate, chronic obstructive lung disease, non-small cell lung cancer with metastatic disease to the brain and bone, status post craniectomy with resection of tumor, hypertension, and renal insufficiency. I spoke to nursing staff. The patient is doing poorly. Palliative care is helping in the case. Continue antibiotics, bronchodilator, diuretics, aspiration precaution. High-risk for pressure ulcers on morphine. Thank you and we will follow with you. Chica Palmer MD [facility] # [id number]
[2018-06-07] MEDS: Levalbuterol 0.63 MG/3 ML Inhal Soln UD IH SCH ×4 (02:11→20:50)
--- NOTE | 2018-06-07 02:13 | PN ---
DATE: 06/06/2018 SUBJECTIVE: The patient is in bed, in no acute distress. The patient was seen earlier this morning, nontoxic, however, chronically ill. No fevers or chills. PHYSICAL EXAMINATION: VITAL SIGNS: Temperature is 98, blood pressure is 120/90, respiratory rate of 18, heart rate is 76. HEENT: Unremarkable. NECK: Supple. LUNGS: Have decreased breath sounds. HEART: Normal S1 and S2. ABDOMEN: Soft and nontender. LABORATORY DATA: Reveals a white count of 4000, hemoglobin of 9, platelets of 39. Chemistries reveal the patient's BUN is 7, creatinine of 0.6. Urinalysis is noted. Serology is noted. Urine for Legionella antigen is negative. Microbiology reveals the cultures are negative. Review of orders reveals the patient to be off of antibiotics. The patient is on Solu-Medrol. Jennifer Larson's note is reviewed. ASSESSMENT AND PLAN: This is a 63-year-old with severe sepsis secondary to healthcare-associated pneumonia, non-small cell lung cancer with metastasis to the brain, history of craniotomy, admitted with severe sepsis secondary to healthcare-associated pneumonia. Currently now, off of antibiotics, completed her 6 days of antibiotics. Overall, prognosis is quite poor. Serge Kruse MD
[2018-06-07] MEDS: Budesonide 0.5 mg/2 ml Inhal Susp UD IH SCH ×2 (07:09→20:49)
[2018-06-07 07:12] LABS: ALB/GLOB RATIO 0.8 (1.1-1.8); ALBUMIN 2.3 g/dL (3.0-4.8); ALT/SGPT 33 U/L (7-56); AST/SGOT 42 U/L (14-36); BLOOD UREA NITROGEN 24 mg/dL (7-21); CALCIUM 9.4 mg/dL (8.4-10.5); GFR AFRICAN-AMERICAN > 60; GFR NON-AFRICAN AMERICAN > 60
[2018-06-07] MEDS: Pantoprazole 40 mg EC Tab PO SCH (10:26)
[2018-06-07] MEDS: MethylPREDNISolone 40 mg Vial IVP SCH ×2 (10:27→21:43)
[2018-06-07] MEDS: Nystatin 100,000 Units/ml Oral Susp 5 ml UD PO SCH ×4 (10:27→21:44)
[2018-06-07] MEDS: Nystatin 100,000 Units/gm Cream(15 gm) TOP SCH ×3 (10:28→17:35)
[2018-06-07] MEDS: LUBIPROSTONE 24 MG PO SCH ×2 (10:28→18:06)
--- NOTE | 2018-06-07 14:48 | PN ---
DATE: 06/07/2018 SUBJECTIVE: Patient is in bed, in no acute distress, nontoxic. PHYSICAL EXAMINATION: VITAL SIGNS: Temperature is 98, blood pressure is 112/70, respiratory rate of 18, heart rate of 76. HEENT: Unremarkable. NECK: Supple. LUNGS: Decreased breath sounds. HEART: Normal S1 and S2. ABDOMEN: Soft. LABORATORY DATA: Reveals the patient has a white count of 4, hemoglobin 9, platelets of 39, 93% neutrophils. BUN 24, creatinine 0.6, last procalcitonin is negative. In fact, the patient has had 5 procalcitonins, all have been negative. Urinalysis is noted. Urine for Legionella antigen is negative. ASSESSMENT AND PLAN: A 63-year-old female who was admitted with severe sepsis secondary to healthcare-associated pneumonia, non-small cell lung cancer with metastasis to the brain, history of craniotomy, admitted with severe sepsis secondary to healthcare-associated pneumonia. Patient has completed the antibiotic therapy. Currently, off of antibiotics. Patient is on Solu-Medrol. Because of the age of 63, we will order an HIV test. Serge Kruse MD
[2018-06-07] MEDS: Sodium Chloride 0.9% 1,000 ML IV SCH (15:09)
[2018-06-07] MEDS: Morphine 4 mg/ml ISec IVP PRN (15:41)
--- NOTE | 2018-06-07 20:31 | PN ---
DATE: 06/07/2018 PULMONARY PROGRESS NOTE REFERRING PHYSICIAN: Yaneth Darby MD SUBJECTIVE: She is lying in the bed on high-flow nasal cannula oxygen, sleepy, arousable. Follows simple command. Poor appetite. No cough. No sputum production. Denying any constipation. Did have a bowel movement. No significant leg swelling. OBJECTIVE: GENERAL: In no acute distress. VITAL SIGNS: Temperature is 98, heart rate is 80, respiratory rate is 18, blood pressure 122/86, pulse ox 98% on high-flow nasal cannula. HEENT: Moist mucous membrane. Crowded airway. NECK: Supple. No JVD. LUNGS: Have a few scattered rhonchi. HEART: S1 and S2. ABDOMEN: Soft, nontender. No organomegaly. EXTREMITIES: There is no edema. NEUROLOGICAL: Sleepy, arousable. Follows simple command. MEDICATIONS: She is on Calan 40 mg three times a day, vitamin D 50,000 units every 7 day, folic acid 1 mg daily, Keppra 500 mg twice a day, metoprolol tartrate 75 mg daily, Amitiza 24 mcg twice a day, morphine 4 mg every 4 hours p.r.n., nystatin to the affected area three times a day, Namenda 10 mg at bedtime, Pepcid 40 mg daily, Xopenex inhaled every 6 hours, verapamil p.r.n. basis, Solu-Medrol 40 mg every 12 hours. LABORATORY DATA: Shows platelet today is 52. Sodium 142, potassium 4.1, chloride 112, bicarbonate 25, BUN 24, creatinine 0.6, glucose 91, calcium 9.4, AST 42, ALT 33, alk phos is 101, albumin is 2.3. IMPRESSION AND PLAN: Sepsis, pulmonary infiltrate, chronic obstructive lung disease, non-small cell lung cancer, metastatic disease to the brain and bone, history of craniectomy for resection of tumor, hypertension, adrenal insufficiency. Overall poor prognosis. Continue bronchodilator. Keep head at 45 degrees. We will decrease Solu-Medrol to 20 every 12 hours. Being follow up with Palliative Care. Patient is DNR. Pressure ulcer precaution. Sequential compression device to lower extremities. We will repeat chest x-ray to assure the infiltrate is clear. May need to go to LTAC type of services to continue care. Thank you and we will follow with you. Chica Palmer MD [facility] # [id number]
[2018-06-08] MEDS: Levalbuterol 0.63 MG/3 ML Inhal Soln UD IH SCH ×4 (02:24→20:13)
--- NOTE | 2018-06-08 05:02 | PN ---
DATE: 06/07/2018 ONCOLOGY PROGRESS NOTE LOCATION: Patient is in room 577, bed 1. SUBJECTIVE: Patient was seen by the bedside. Family was visiting. I spoke in detail to her daughter and her son-in-law who are visiting today and apprised them of the clinical situation of what Nicol is going through. Subjectively, patient is lying in bed on high-flow nasal oxygen. Patient is arousable and had an intelligent discussion with me today. Still short of breath, very poor appetite. No significant cough, no sputum production, and denies any significant pain. Denies constipation and denies any significant issues with abdominal cramps at this time. Patient does not have any significant abdominal pain. PHYSICAL EXAMINATION: GENERAL: Patient is in no significant distress. She is on high-flow nasal oxygen. VITAL SIGNS: Stable. T-max is 98.4, heart rate is 80, respirations 18, blood pressure is 122/86, pulse ox is 98% on high-flow nasal oxygen. HEENT: Head is normocephalic and atraumatic. Crowded airways are noted. Examination of the oropharynx reveals tongue to be coated and dry. No oropharyngeal lesions are noted. NECK: Supple. There is no adenopathy. No jugular venous distention noted. LUNGS: Reveals bilateral wheezes and rhonchi. HEART: Reveals PMI to be in the fifth intercostal space, inside the midclavicular line. S1 and S2 are normal. No gallop or murmur is heard. ABDOMEN: Soft, mildly distended. Liver and spleen are not palpable. No rebound, rigidity, or guarding is noted. EXTREMITIES: Reveal no cyanosis, clubbing, or edema. NEUROLOGIC: Patient is awake, alert, oriented, and responsive to verbal commands. Patient realizes where she is. Patient was able to recognize my name and we had a decent conversation with her and her immediate family at the bedside. MEDICATIONS: Reviewed. She is on for hypertension, vitamin D 50,000 units every 7 days, folic acid 1 mg daily, Keppra 500 b.i.d. for her seizures, metoprolol 75 mg daily, Amitiza 24 mcg twice a day, morphine 4 mg every 4 hours p.r.n., nystatin to affected areas 3 times a day, Namenda 10 mg at bedtime, Pepcid 40 mg daily, Xopenex inhaled every 6 hours, verapamil p.r.n., Solu-Medrol which has been decreased to 40 mg every 12 hours. LABORATORY DATA: Shows platelet count of 52,000, which is holding. Sodium is 142, K is 4.1, bicarbonate 25, BUN is 24, creatinine 0.6, glucose is 91, calcium is 9.4. AST is 42, ALT is 33, alkaline phosphatase is 101, albumin is 2.3. ASSESSMENT, NOTES AND PLAN: Patient has a history of metastatic stage IV non-small cell lung carcinoma with documented brain metastasis, status post resection of the brain lesion, was on combination of chemotherapy with carboplatin, pemetrexed, and Keytruda and currently on Keytruda alone. Last treatment given about 2 months ago. Currently, being treated for sepsis, bilateral pulmonary infiltrates, chronic obstructive lung disease, and adrenal insufficiency. A long discussion with the patient's immediate family; we told them the overall prognosis is poor, but we will continue with the current therapy. Patient is on bronchodilators. Head end has been kept at 45 degrees. She is both on proton pump inhibitor for gastric prophylaxis and she is also on sequential compression device to the lower extremities. Patient is a DNR. Patient also has pressure ulcer precautions. They are going to follow up on the chest x-ray as well. Patient may need to go to a palliative care center for long-term care as at this point in time, overall prognosis appears to be guarded. Time spent with the patient and the family is more than 45 minutes. Family and patient all aware at this point in time that is the overall prognosis. We will discuss with Dr. Palmer regarding the status of her clot in the left iliac vein as patient is currently not on any medications that she was on, probably because of the thrombocytopenia. The medication I am talking about is Lovenox in the recent past. Please make a note, time spent with the patient and the family is more than one hour. This is a medically necessary and appropriate visit and discussions with the patient and the family regarding the overall prognosis. Lamberto Carranza MD
[2018-06-08] MEDS: Budesonide 0.5 mg/2 ml Inhal Susp UD IH SCH ×2 (07:22→20:13)
[2018-06-08] MEDS: MethylPREDNISolone 40 mg Vial IVP SCH (11:38)
[2018-06-08] MEDS: Nystatin 100,000 Units/ml Oral Susp 5 ml UD PO SCH ×4 (11:46→21:40)
[2018-06-08] MEDS: Pantoprazole 40 mg EC Tab PO SCH (11:46)
[2018-06-08] MEDS: Nystatin 100,000 Units/gm Cream(15 gm) TOP SCH ×3 (11:56→17:58)
[2018-06-08] MEDS: LUBIPROSTONE 24 MG PO SCH ×2 (11:56→19:04)
--- NOTE | 2018-06-08 14:31 | PN ---
DATE: 06/08/2018 SUBJECTIVE: Patient is in bed in no acute distress, nontoxic. PHYSICAL EXAMINATION: VITAL SIGNS: Temperature is 97, blood pressure is 111/80, respiratory rate of 22, heart rate of 81. HEENT: Unremarkable. NECK: Supple. LUNGS: Decreased breath sounds. HEART: Normal S1, S2. ABDOMEN: Soft, nontender. LABORATORY DATA: Reveals the patient's white count of 4, hemoglobin of 9 and platelets of 39. Chemistries reveals a BUN of 24, creatinine of 0.6. Urinalysis is noted and serology reveals urine for Legionella antigen is negative. Microbiology reveals urine culture from the 1st has multiple species. The blood cultures have been negative. Review of orders reveals the patient to be on Solu-Medrol, off of antibiotics. Dr. Carranza's note is reviewed and Dr. Palmer's note is reviewed. ASSESSMENT AND PLAN: This is a 63-year-old female who was seen early this morning in 577, bed 1 with severe sepsis secondary to healthcare-associated pneumonia in a patient with non-small cell lung cancer with metastases to the central nervous system, history of craniotomy, admitted initially with severe sepsis secondary to healthcare-associated pneumonia, has completed the antibiotic therapy, currently the patient is only on Solu-Medrol and the patient has had combination of chemotherapy and carboplatin and the patient has a clot in the left iliac vein. Overall prognosis is quite poor, should consider a hospice setting for this patient who is end stage. Because of her age, human immunodeficiency virus test was ordered, pending further results. Serge Kruse MD
--- NOTE | 2018-06-08 17:21 | PN ---
DATE: 06/07/2018 SUBJECTIVE: She is drowsy, lethargic, arousable, currently on high-flow oxygen. No events overnight. She was admitted with sepsis, pancytopenia, history of non-small cell lung cancer metastatic lesion to brain. REVIEW OF SYSTEMS: Could not be obtained. She is sedated, drowsy. PHYSICAL EXAMINATION: GENERAL: She is arousable, drowsy, oral mucosa dry. VITAL SIGNS: Heart rate is 67 per minute, respiratory rate 18 per minute, blood pressure 115/80, pulse ox is 95% on room air. HEENT: Oral mucosa dry. NECK: No lymphadenopathy. CHEST: Air entry present and equal bilateral. Added bilateral conducted sound present and crepitations at the bases. CARDIOVASCULAR: Tachycardia present. ABDOMEN: Soft, nontender. No hepatosplenomegaly. EXTREMITY: No edema. LABORATORY DATA: White count 4000, hemoglobin 9.6, hematocrit 28.6, platelet count 39,000. BUN 27, creatinine 0.6. MEDICATIONS: Bronchodilator, Pulmicort, Lovenox 60 subcutaneous b.i.d., famotidine 40 mg at bedtime, Keppra, Xopenex, methylprednisolone, nystatin, verapamil 2.5 mg every 6 hours p.r.n. ASSESSMENT: Stage IV lung cancer with metastatic lesion to brain, status post craniotomy; healthcare-associated pneumonia; sepsis; hypoxia; inferior vena cava thrombus; chronic obstructive pulmonary disease. PLAN: We will continue IV antibiotic, meropenem as per ID. Continue bronchodilators. Continue supportive care. We will continue cardiac meds, Lopressor and verapamil. Poor prognosis. Continue DVT treatment, Lovenox b.i.d. full-dose anticoagulation. Alexandra Drake MD
--- NOTE | 2018-06-08 17:29 | PN ---
DATE: 06/08/2018 SUBJECTIVE: She is comfortable, currently on high-flow oxygen, sedated. She is lethargic, arousable. Not oriented to time, place, person. No events overnight. REVIEW OF SYSTEMS: Could not be obtained as she is lethargic. PHYSICAL EXAMINATION: VITAL SIGNS: Temperature 97, blood pressure 110/70, respiratory rate 22 per minute, heart rate is 81 per minute. HEENT: Oral mucosa dry. NECK: No lymphadenopathy. CHEST: Air entry present and equal bilateral. No added sound. CARDIOVASCULAR: S1, S2 normal. No murmur. No gallop. ABDOMEN: Soft, nontender. No hepatosplenomegaly. [employer]: Lethargic. Moving all the limbs. SPINE: Nontender. SKIN: No petechiae. No rash. LABORATORY DATA: Labs from 06/06/2018: White count 4, hemoglobin 9.6, hematocrit 28.6, platelet count 39. Sodium 142, potassium 4.1, creatinine 0.6. MEDICATIONS: Pulmicort capsule, famotidine, folic acid 1 mg daily, Xopenex, Keppra 500 every 12, Namenda 10 mg p.o. at bedtime, Solu-Medrol 20 every 12 hours, metoprolol 75 b.i.d., morphine p.r.n., nystatin, Protonix, verapamil 40 mg p.o. t.i.d. ASSESSMENT: 1. Stage IV lung cancer. 2. Sepsis. 3. Deep venous thrombosis. 4. Brain metastasis. 5. Healthcare-associated pneumonia. PLAN: Currently on IV antibiotic as per ID. Currently, on Solu-Medrol. Seizure prophylaxis with Keppra, continue that. Continue supportive care, IV fluid at 60 mL/hour, verapamil 40 mg p.o. t.i.d. Prognosis is poor. Discussed with the staff nurse. Alexandra Drake MD
--- NOTE | 2018-06-08 22:44 | PN ---
DATE: 06/08/2018 PULMONARY PROGRESS NOTE REFERRING PHYSICIAN: Yaneth Darby MD. SUBJECTIVE: Patient is lying in the bed, head at 45 degrees, on high-flow oxygen. Having lunch with the help of staff. Short of breath with exertion. No nausea. No vomiting, diarrhea, leg pain or leg swelling. OBJECTIVE: GENERAL: In no acute distress. VITAL SIGNS: Temperature is 98, heart rate 70, respiratory rate is 20, blood pressure 130/82, pulse ox 98% on high-flow oxygen. HEENT: Moist mucous membrane. Crowded airway. NECK: Supple. No JVD. LUNGS: Has a few crackles and scattered rhonchi. HEART: S1 and S2. ABDOMEN: Soft and nontender. No organomegaly. EXTREMITIES: No edema. NEUROLOGICAL: Awake and alert. Follows simple command. MEDICATIONS: She is on verapamil 40 mg three times a day, vitamin D 50,000 unit weekly, folic acid 1 mg daily, Keppra 500 mg twice a day, metoprolol tartarate 75 mg twice a day, Amitiza 24 mcg twice a day, morphine 4 mg every 4 hours p.r.n., nystatin to the affected area three times a day, Namenda 10 mg at bedtime, Pepcid 40 mg daily, Protonix 40 mg daily, Pulmicort inhaled twice a day, IV fluid, normal saline 60 mL per hour, Solu-Medrol 20 mg every 12 hours, verapamil 2.5 mg every 6 hours, Xopenex 0.63 every 6 hours. LABORATORY DATA: Shows platelet is 51. IMPRESSION AND PLAN: Sepsis, pulmonary infiltrate, chronic obstructive lung disease, non-small cell lung cancer, metastatic disease to the brain requiring craniotomy and craniectomy, metastasis to the bone, hypertension, adrenal insufficiency. Pulmonary point of view, doing okay. Keep head at 45 degrees. Slowly wean off supplemental oxygen, titrate to pulse ox about 90%. Patient is do not resuscitate. Continue supportive care. We will taper down steroid slowly. May benefit from long-term acute care type of services and physical therapy at bedside. Thank you and we will follow with you. Chica Palmer MD
[2018-06-09] MEDS: Levalbuterol 0.63 MG/3 ML Inhal Soln UD IH SCH ×4 (02:40→20:25)
--- NOTE | 2018-06-09 07:20 | CP.PCM.PN ---
Subjective - Date & Time of Evaluation Date of Evaluation: 06/09/18 Time of Evaluation: 06:30 - Subjective Subjective: Lethargic but easily awaken, lying in bed , denies chest pain, on high flow oxygen Reason for consultation and follow up: Cardiac evaluation for tachycardia, History of non small cell carcinoma with metastasis to the brain post craniotomy and on chemotherapy. History of COPD, current smoker,hypertension Seen and examined by me and Dr. Simon Objective - Vital Signs/Intake and Output Vital Signs (last 24 hours): Temp Pulse Resp BP Pulse Ox 98.1 F 78 24 115/89 75 L 06/08/18 21:54 06/08/18 21:54 06/09/18 03:42 06/08/18 21:54 06/08/18 21:54 Intake and Output: 06/09/18 06/09/18 06:59 18:59 Intake Total 120 Output Total 1300 Balance -1180 - Medications Medications: Current Medications Budesonide (Pulmicort Respules) 0.5 mg IH [id number] [facility] Last Admin: 06/08/18 20:13 Dose: 0.5 mg Ergocalciferol (Drisdol 50,000 Intl Units Cap) 1 cap PO Q7D [facility] Last Admin: 06/03/18 10:14 Dose: 1 cap Famotidine (Pepcid) 40 mg PO HS [facility] Last Admin: 06/08/18 21:40 Dose: 40 mg Folic Acid (Folic Acid) 1 mg PO DAILY [facility] Last Admin: 06/08/18 11:56 Dose: 1 mg Sodium Chloride (Sodium Chloride 0.9%) 1,000 mls @ 60 mls/hr IV .[id number] [facility] Last Admin: 06/07/18 15:09 Dose: 60 mls/hr Levalbuterol HCl (Xopenex) 0.63 mg IH [id number] [facility] Last Admin: 06/09/18 02:40 Dose: Not Given Levetiracetam (Keppra) 500 mg PO Q12 [facility] Last Admin: 06/08/18 21:40 Dose: 500 mg Memantine (Namenda) 10 mg PO HS [facility] Last Admin: 06/08/18 21:40 Dose: 10 mg Methylprednisolone (Solu-Medrol) 20 mg IVP DAILY [facility] Metoprolol Tartrate (Lopressor) 75 mg PO BID [facility] Last Admin: 06/08/18 17:58 Dose: 75 mg Morphine Sulfate (Morphine) 4 mg IVP Q4H PRN PRN Reason: Pain, moderate (4-7) Last Admin: 06/07/18 15:41 Dose: 4 mg Non-Formulary Medication (Lubiprostone [Amitiza]) 24 mg PO BID [facility] Last Admin: 06/08/18 19:04 Dose: Not Given Nystatin (Nystatin Oral Susp) 5 ml PO QID [facility] Last Admin: 06/08/18 21:40 Dose: 5 ml Nystatin (Mycostatin Cream) 1 ea TOP TID [facility] Last Admin: 06/08/18 17:58 Dose: 1 applic Pantoprazole Sodium (Protonix Ec Tab) 40 mg PO DAILY [facility] Last Admin: 06/08/18 11:46 Dose: 40 mg Verapamil HCl (Verapamil Inj) 2.5 mg IVP Q6H PRN PRN Reason: for heart rate >120 Last Admin: 05/28/18 23:32 Dose: 2.5 mg Verapamil HCl (Calan Tab) 40 mg PO TID [facility] Last Admin: 06/08/18 17:58 Dose: 40 mg - Labs Labs: 06/06/18 06:30 06/07/18 06:30 PT 12.8 SECONDS (9.4-12.5) H 05/20/18 10:45 INR 1.11 (0.93-1.08) H 05/20/18 10:45 APTT 24.7 Seconds (25.1-36.5) L 05/20/18 10:45 - Constitutional Appears: Cachectic - ENT Exam ENT Exam: Mucous Membranes Dry - Respiratory Exam Respiratory Exam: Decreased Breath Sounds, Rhonchi Additional comments: labored, high flow nasal cannula - Cardiovascular Exam Cardiovascular Exam: +S1, +S2 Additional comments: right chest port/accessed - GI/Abdominal Exam GI & Abdominal Exam: Soft, Hypoactive Bowel Sounds - Exam Additional comments: incontinent/purewick - Extremities Exam Extremities Exam: Normal Capillary Refill Additional comments: 1+ edema - Neurological Exam Neurological Exam: Awake Additional comments: confuse - Psychiatric Exam Psychiatric exam: Normal Affect - Skin Skin Exam: Dry, Warm Assessment and Plan - Assessment and Plan (Free Text) Assessment: A 63 year old female who came in to the ER due to shortness of breath. 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 History of COPD, current smoker,hypertension. 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 Plan: Cardiac status stable Heart rate controlled Controlled blood pressure Labored breathing on high flow nasal cannula Seen by palliative care Nutritional support Continue current medications Continue current treatment Will follow up Plan and treatment discussed with Dr. Simon
[2018-06-09] MEDS: Budesonide 0.5 mg/2 ml Inhal Susp UD IH SCH ×2 (07:34→20:25)
[2018-06-09] MEDS ORDERED: MethylPREDNISolone 40 mg Vial IVP SCH (10:00)
[2018-06-09] MEDS: LUBIPROSTONE 24 MG PO SCH ×2 (10:51→18:45)
[2018-06-09] MEDS: Morphine 4 mg/ml ISec IVP PRN (10:52)
[2018-06-09] MEDS: Nystatin 100,000 Units/gm Cream(15 gm) TOP SCH ×3 (10:54→18:45)
[2018-06-09] MEDS: Nystatin 100,000 Units/ml Oral Susp 5 ml UD PO SCH ×4 (10:54→22:32)
[2018-06-09] MEDS: Pantoprazole 40 mg EC Tab PO SCH (10:56)
--- NOTE | 2018-06-09 13:27 | CP.PCM.PN ---
Subjective - Date & Time of Evaluation Date of Evaluation: 06/09/18 Time of Evaluation: 12:00 - Subjective Subjective: Lethargic, unable to follow command. On high flow Objective - Vital Signs/Intake and Output Vital Signs (last 24 hours): Temp Pulse Resp BP Pulse Ox 99.4 F 52 L 20 104/65 93 L 06/09/18 06:00 06/09/18 10:50 06/09/18 13:10 06/09/18 10:50 06/09/18 06:00 Intake and Output: 06/09/18 06/09/18 06:59 18:59 Intake Total 120 Output Total 1300 Balance -1180 - Medications Medications: Current Medications Budesonide (Pulmicort Respules) 0.5 mg IH [id number] [facility] Last Admin: 06/09/18 07:34 Dose: 0.5 mg Ergocalciferol (Drisdol 50,000 Intl Units Cap) 1 cap PO Q7D [facility] Last Admin: 06/03/18 10:14 Dose: 1 cap Famotidine (Pepcid) 40 mg PO HS [facility] Last Admin: 06/08/18 21:40 Dose: 40 mg Folic Acid (Folic Acid) 1 mg PO DAILY [facility] Last Admin: 06/09/18 10:49 Dose: 1 mg Sodium Chloride (Sodium Chloride 0.9%) 1,000 mls @ 60 mls/hr IV .[id number] [facility] Last Admin: 06/07/18 15:09 Dose: 60 mls/hr Levalbuterol HCl (Xopenex) 0.63 mg IH [id number] [facility] Last Admin: 06/09/18 13:11 Dose: 0.63 mg Levetiracetam (Keppra) 500 mg PO Q12 [facility] Last Admin: 06/09/18 10:49 Dose: 500 mg Memantine (Namenda) 10 mg PO HS [facility] Last Admin: 06/08/18 21:40 Dose: 10 mg Methylprednisolone (Solu-Medrol) 20 mg IVP DAILY [facility] Last Admin: 06/09/18 10:51 Dose: 20 mg Metoprolol Tartrate (Lopressor) 75 mg PO BID [facility] Last Admin: 06/09/18 10:50 Dose: Not Given Morphine Sulfate (Morphine) 4 mg IVP Q4H PRN PRN Reason: Pain, moderate (4-7) Last Admin: 06/09/18 10:52 Dose: 4 mg Non-Formulary Medication (Lubiprostone [Amitiza]) 24 mg PO BID [facility] Last Admin: 06/09/18 10:51 Dose: Not Given Nystatin (Nystatin Oral Susp) 5 ml PO QID [facility] Last Admin: 06/09/18 10:54 Dose: 5 ml Nystatin (Mycostatin Cream) 1 ea TOP TID [facility] Last Admin: 06/09/18 10:54 Dose: 1 applic Pantoprazole Sodium (Protonix Ec Tab) 40 mg PO DAILY [facility] Last Admin: 06/09/18 10:56 Dose: 40 mg Verapamil HCl (Verapamil Inj) 2.5 mg IVP Q6H PRN PRN Reason: for heart rate >120 Last Admin: 05/28/18 23:32 Dose: 2.5 mg Verapamil HCl (Calan Tab) 40 mg PO TID [facility] Last Admin: 06/09/18 10:49 Dose: Not Given - Labs Labs: 06/06/18 06:30 06/07/18 06:30 PT 12.8 SECONDS (9.4-12.5) H 05/20/18 10:45 INR 1.11 (0.93-1.08) H 05/20/18 10:45 APTT 24.7 Seconds (25.1-36.5) L 05/20/18 10:45 - Constitutional Appears: Chronically Ill - Eye Exam Eye Exam: Normal appearance, PERRL - ENT Exam ENT Exam: Mucous Membranes Moist - Respiratory Exam Respiratory Exam: Accessory Muscle Use, Decreased Breath Sounds, Rhonchi - Cardiovascular Exam Cardiovascular Exam: +S1, +S2 - GI/Abdominal Exam GI & Abdominal Exam: Soft, Hypoactive Bowel Sounds - Neurological Exam Neurological Exam: Altered - Skin Skin Exam: Dry, Pallor Assessment and Plan - Assessment and Plan (Free Text) Assessment: 63 year old female with history of COPD, 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 I spoke with patients daughterHaley on Saturday regarding goals of care. Extensive discussion regarding hospice care vs LTAC. Family unsure as to how they want to proceed. Daughter aware of patients diagnosis as well as prognosis. I tried to reach daughter today to follow up with her regarding family decision. Plan: Continue supportive care Pulmonary: High flow, nebulizers, as per pulmonary>taper Solumedrol. NSCLC: Follow up with oncology AMS: continue Namenda Goals iof care
[2018-06-09] MEDS: Sodium Chloride 0.9% 1,000 ML IV SCH (14:15)
--- NOTE | 2018-06-09 18:06 | CP.PCM.PN ---
Subjective - Date & Time of Evaluation Date of Evaluation: 06/09/18 Time of Evaluation: 09:40 - Subjective Subjective: Pt seen and examined today. Pt awake upon arrival to the room. Pt unable to give multi word answers to questions. Pt reports no new complaints at this time. Objective - Vital Signs/Intake and Output Vital Signs (last 24 hours): Temp Pulse Resp BP Pulse Ox 99 F 102 H 20 118/86 99 06/09/18 14:00 06/09/18 14:39 06/09/18 14:00 06/09/18 14:39 06/09/18 14:00 Intake and Output: 06/09/18 06/09/18 06:59 18:59 Intake Total 120 Output Total 1300 Balance -1180 - Medications Medications: Current Medications Budesonide (Pulmicort Respules) 0.5 mg IH [id number] [facility] Last Admin: 06/09/18 07:34 Dose: 0.5 mg Ergocalciferol (Drisdol 50,000 Intl Units Cap) 1 cap PO Q7D [facility] Last Admin: 06/03/18 10:14 Dose: 1 cap Famotidine (Pepcid) 40 mg PO HS [facility] Last Admin: 06/08/18 21:40 Dose: 40 mg Folic Acid (Folic Acid) 1 mg PO DAILY [facility] Last Admin: 06/09/18 10:49 Dose: 1 mg Sodium Chloride (Sodium Chloride 0.9%) 1,000 mls @ 60 mls/hr IV .[id number] [facility] Last Admin: 06/09/18 14:15 Dose: 60 mls/hr Levalbuterol HCl (Xopenex) 0.63 mg IH [id number] [facility] Last Admin: 06/09/18 13:11 Dose: 0.63 mg Levetiracetam (Keppra) 500 mg PO Q12 [facility] Last Admin: 06/09/18 10:49 Dose: 500 mg Memantine (Namenda) 10 mg PO [facility] Last Admin: 06/08/18 21:40 Dose: 10 mg Methylprednisolone (Solu-Medrol) 20 mg IVP DAILY [facility] Last Admin: 06/09/18 10:51 Dose: 20 mg Metoprolol Tartrate (Lopressor) 75 mg PO BID [facility] Last Admin: 06/09/18 10:50 Dose: Not Given Morphine Sulfate (Morphine) 4 mg IVP Q4H PRN PRN Reason: Pain, moderate (4-7) Last Admin: 06/09/18 10:52 Dose: 4 mg Non-Formulary Medication (Lubiprostone [Amitiza]) 24 mg PO BID [facility] Last Admin: 06/09/18 10:51 Dose: Not Given Nystatin (Nystatin Oral Susp) 5 ml PO QID [facility] Last Admin: 06/09/18 14:38 Dose: Not Given Nystatin (Mycostatin Cream) 1 ea TOP TID [facility] Last Admin: 06/09/18 10:54 Dose: 1 applic Pantoprazole Sodium (Protonix Ec Tab) 40 mg PO DAILY [facility] Last Admin: 06/09/18 10:56 Dose: 40 mg Verapamil HCl (Verapamil Inj) 2.5 mg IVP Q6H PRN PRN Reason: for heart rate >120 Last Admin: 05/28/18 23:32 Dose: 2.5 mg Verapamil HCl (Calan Tab) 40 mg PO TID [facility] Last Admin: 06/09/18 14:39 Dose: Not Given - Labs Labs: 06/06/18 06:30 06/07/18 06:30 PT 12.8 SECONDS (9.4-12.5) H 05/20/18 10:45 INR 1.11 (0.93-1.08) H 05/20/18 10:45 APTT 24.7 Seconds (25.1-36.5) L 05/20/18 10:45 - Constitutional Appears: Chronically Ill - Eye Exam Eye Exam: EOMI - Neck Exam Neck Exam: Full ROM - Respiratory Exam Respiratory Exam: Wheezes - Cardiovascular Exam Cardiovascular Exam: REGULAR RHYTHM - GI/Abdominal Exam GI & Abdominal Exam: Soft, Normal Bowel Sounds - Rectal Exam Rectal Exam: Deferred - Extremities Exam Extremities Exam: Normal Inspection - Neurological Exam Neurological Exam: Awake - Skin Skin Exam: Normal Color Assessment and Plan - Assessment and Plan (Free Text) Assessment: 63 year-old female with a past medical history of metastatic non-small cell lung cancer with metastasis to the brain status post craniotomy, who came in with confusion, fever, and dyspnea on 05/21/18. CT/MRI of the head were negative. Patient was was found to have multifocal infiltrates consistent with healthcare-associated pneumonia and sepsis requiring ICU admission. Patient started on broad-spectrum antibiotic, stress dose steroids, and Keppra for seizure prophylaxis, high flow oxygen with humidified 70% FiO2. Patient clinical status has improved, but patient has a poor prognosis overall. Patients blood cell indices show a progressive pancytopenia, with the manual platelet count today being. Patient is currently on Solumedrol 40 mg q12h JACQUIE given her likely adrenal insufficiency. Patient is DNR and DNI. Palliative care consulted. Continue current management at this time. Case discussed with Dr. Dillon Finley PGY-1
--- NOTE | 2018-06-09 19:33 | PN ---
DATE: 06/09/2018 PULMONARY PROGRESS NOTE REFERRING PHYSICIAN: Yaneth Darby MD SUBJECTIVE: She is lying in the bed, head at 45 degrees. Poor appetite. On high-flow oxygen. No cough. No sputum production. No vomiting. No hematuria. No diarrhea reported. OBJECTIVE: GENERAL: In no acute distress. VITAL SIGNS: Temperature is 98, heart rate is 102, respiratory rate is 20, blood pressure 118/89, pulse ox 99% on high-flow oxygen. HEENT: Moist mucous membrane. Crowded airway. NECK: Supple. No JVD. LUNGS: Have a few crackles and scattered rhonchi. HEART: S1 and S2, irregular. ABDOMEN: Soft, nontender. No organomegaly. EXTREMITIES: There is no edema. NEUROLOGICAL: Sleepy, arousable. Follows simple command. MEDICATIONS: She is on Calan 40 mg three times a day, which was not given last dose; vitamin D 50,000 units every 7 day; folic acid 1 mg daily; Keppra 500 mg twice a day; metoprolol tartrate 75 mg twice a day, which is on hold; Amitiza twice a day; morphine 4 mg every 4 hours p.r.n.; Namenda 10 mg at bedtime; Pepcid 40 mg at bedtime; Protonix 40 mg daily; Pulmicort inhaled twice a day; IV fluid; normal saline 60 mL/hour; Solu-Medrol 20 mg twice a day; verapamil 2.5 mg every 6 hours; Xopenex inhaled every 6 hours. LABORATORY DATA: Reviewed. No new lab is available since yesterday. IMPRESSION AND PLAN: Sepsis, pulmonary infiltrate, chronic obstructive lung disease, [id number] lung cancer, metastatic disease to the brain requiring craniotomy and craniectomy, also metastases to the bones, hypertension, adrenal insufficiency. Pulmonary point of view, she is doing okay. Spoke to nursing staff, also spoke to Palliative Care. The patient has poor appetite on IV fluid. Overall poor prognosis. She is DNR and DNI. May increase Solu-Medrol to 20 twice a day for now. Gastric prophylaxis, sequential compression device to lower extremity. Thank you and we will follow with you. Chica Palmer MD [facility] # [phone]
--- NOTE | 2018-06-09 21:12 | CP.PCM.PN ---
Subjective - Date & Time of Evaluation Date of Evaluation: 06/09/18 Time of Evaluation: 11:00 - Subjective Subjective: No fevers, not in distress, breathing well. Objective - Vital Signs/Intake and Output Vital Signs (last 24 hours): Temp Pulse Resp BP Pulse Ox 99.4 F 148 H 24 139/92 H 93 L 06/09/18 06:00 06/09/18 06:00 06/09/18 07:35 06/09/18 06:00 06/09/18 06:00 Intake and Output: 06/09/18 06/09/18 06:59 18:59 Intake Total 120 Output Total 1300 Balance -1180 - Medications Medications: Current Medications Budesonide (Pulmicort Respules) 0.5 mg IH [id number] [facility] Last Admin: 06/09/18 07:34 Dose: 0.5 mg Ergocalciferol (Drisdol 50,000 Intl Units Cap) 1 cap PO Q7D [facility] Last Admin: 06/03/18 10:14 Dose: 1 cap Famotidine (Pepcid) 40 mg PO HS [facility] Last Admin: 06/08/18 21:40 Dose: 40 mg Folic Acid (Folic Acid) 1 mg PO DAILY [facility] Last Admin: 06/08/18 11:56 Dose: 1 mg Sodium Chloride (Sodium Chloride 0.9%) 1,000 mls @ 60 mls/hr IV .[id number] [facility] Last Admin: 06/07/18 15:09 Dose: 60 mls/hr Levalbuterol HCl (Xopenex) 0.63 mg IH [id number] [facility] Last Admin: 06/09/18 07:34 Dose: 0.63 mg Levetiracetam (Keppra) 500 mg PO Q12 [facility] Last Admin: 06/08/18 21:40 Dose: 500 mg Memantine (Namenda) 10 mg PO [facility] Last Admin: 06/08/18 21:40 Dose: 10 mg Methylprednisolone (Solu-Medrol) 20 mg IVP DAILY [facility] Metoprolol Tartrate (Lopressor) 75 mg PO BID [facility] Last Admin: 06/08/18 17:58 Dose: 75 mg Morphine Sulfate (Morphine) 4 mg IVP Q4H PRN PRN Reason: Pain, moderate (4-7) Last Admin: 07/07/18 15:41 Dose: 4 mg Non-Formulary Medication (Lubiprostone [Amitiza]) 24 mg PO BID [facility] Last Admin: 06/08/18 19:04 Dose: Not Given Nystatin (Nystatin Oral Susp) 5 ml PO QID [facility] Last Admin: 06/08/18 21:40 Dose: 5 ml Nystatin (Mycostatin Cream) 1 ea TOP TID [facility] Last Admin: 06/08/18 17:58 Dose: 1 applic Pantoprazole Sodium (Protonix Ec Tab) 40 mg PO DAILY [facility] Last Admin: 06/08/18 11:46 Dose: 40 mg Verapamil HCl (Verapamil Inj) 2.5 mg IVP Q6H PRN PRN Reason: for heart rate >120 Last Admin: 05/28/18 23:32 Dose: 2.5 mg Verapamil HCl (Calan Tab) 40 mg PO TID [facility] Last Admin: 06/08/18 17:58 Dose: 40 mg - Labs Labs: 06/06/18 06:30 06/07/18 06:30 PT 12.8 SECONDS (9.4-12.5) H 05/20/18 10:45 INR 1.11 (0.93-1.08) H 05/20/18 10:45 APTT 24.7 Seconds (25.1-36.5) L 05/20/18 10:45 - Constitutional Appears: Non-toxic, Chronically Ill - Head Exam Head Exam: NORMAL INSPECTION - Respiratory Exam Respiratory Exam: Decreased Breath Sounds - Cardiovascular Exam Cardiovascular Exam: +S1, +S2 - GI/Abdominal Exam GI & Abdominal Exam: Soft. absent: Tenderness Assessment and Plan - Assessment and Plan (Free Text) Plan: Assessment S/P severe sepsis due to HCAP non-small cell lung cancer stage 4 with bone metastases on chemotherapy Plan continue to monitor clinically off antibiotics since she is at risk for nosocomial infections overall prognosis is poor
[2018-06-09] MEDS: Morphine 2 mg/ml ISec IVP PRN (22:51)
--- NOTE | 2018-06-10 00:41 | PN ---
DATE: 06/09/2018 SUBJECTIVE: The patient was seen and examined on the bedside on 06/09/2018, not much change in the status. Poor appetite, on high-flow oxygen. No coughing. No sputum production. No nausea or vomiting. The patient is a very poor historian. No fever. No chills. No hematuria or hematochezia. PHYSICAL EXAMINATION: VITAL SIGNS: Temperature 98.6, heart rate 104, respiratory rate 18, blood pressure 120/89, pulse oximetry 99% on high-flow oxygen. HEENT: Head normocephalic, atraumatic. Eyes PERRLA. Extraocular muscles intact. Conjunctivae clear. Nose patent. Mucous membrane moist. NECK: Supple. No carotid bruit. No JVD or thyromegaly. CHEST: Bilaterally symmetrical. HEART: S1 and S2 positive. LUNGS: Has few crackles scattered at the bases with rhonchi. ABDOMEN: Soft, nontender. No organomegaly. EXTREMITIES: No edema. No cyanosis. NEUROLOGICAL: The patient is awake, alert. Follow simple commands. MEDICATIONS: Calan, vitamin D, folic acid, Keppra, metoprolol, Amitiza, morphine, Namenda, Pepcid, Protonix, Pulmicort, NS, Solu-Medrol, verapamil, Xopenex inhaled every 6 hours. LABORATORY DATA: We do not have recent lab today, but I reviewed old labs. ASSESSMENT AND PLAN: Ms. Nicol Brannon, a 63-year-old lady with sepsis, pneumonia, chronic obstructive lung disease, non-small cell lung cancer with metastasis to the brain requiring craniotomy and lobectomy of the brain. She has metastasis on the bones also, history of hypertension, adrenal insufficiency. Length of time discussion done with Dr. Palmer. The patient has poor appetite, on IV fluid. Prognosis is poor. Still DNR and DNI. Dr. Palmer increased the Solu-Medrol. Gastric and deep venous thrombosis prophylaxis. Jennifer Larson is on the case, talking to the patient's daughter. Oncologist, Dr. Alexandra Drake is on the case also. Gastrointestinal and deep venous thrombosis prophylaxis. Repeat labs. We will follow up. Yaneth Darby MD [facility] # [id number]
[2018-06-10] MEDS: Levalbuterol 0.63 MG/3 ML Inhal Soln UD IH SCH ×4 (01:21→19:39)
--- NOTE | 2018-06-10 06:30 | CP.PCM.PN ---
Subjective - Date & Time of Evaluation Date of Evaluation: 06/10/18 Time of Evaluation: 06:25 - Subjective Subjective: Lethargic but arousable,open eyes to command, lying in bed , denies chest pain, on high flow oxygen Reason for consultation and follow up: Cardiac evaluation for tachycardia, History of non small cell carcinoma with metastasis to the brain post craniotomy and on chemotherapy. History of COPD, current smoker,hypertension Seen and examined by me and Dr. Simon Objective - Vital Signs/Intake and Output Vital Signs (last 24 hours): Temp Pulse Resp BP Pulse Ox 97.4 F L 96 H 18 103/73 96 06/09/18 22:00 06/09/18 22:00 06/09/18 22:00 06/09/18 22:00 06/09/18 22:00 - Medications Medications: Current Medications Budesonide (Pulmicort Respules) 0.5 mg IH [id number] [facility] Last Admin: 06/09/18 20:25 Dose: 0.5 mg Ergocalciferol (Drisdol 50,000 Intl Units Cap) 1 cap PO Q7D [facility] Last Admin: 06/03/18 10:14 Dose: 1 cap Famotidine (Pepcid) 40 mg PO HS [facility] Last Admin: 06/09/18 22:32 Dose: 40 mg Folic Acid (Folic Acid) 1 mg PO DAILY [facility] Last Admin: 06/09/18 10:49 Dose: 1 mg Sodium Chloride (Sodium Chloride 0.9%) 1,000 mls @ 60 mls/hr IV .[id number] [facility] Last Admin: 06/09/18 14:15 Dose: 60 mls/hr Levalbuterol HCl (Xopenex) 0.63 mg IH [id number] [facility] Last Admin: 06/10/18 01:21 Dose: Not Given Levetiracetam (Keppra) 500 mg PO Q12 [facility] Last Admin: 06/09/18 22:32 Dose: 500 mg Memantine (Namenda) 10 mg PO HS [facility] Last Admin: 06/09/18 22:32 Dose: 10 mg Methylprednisolone (Solu-Medrol) 20 mg IVP BID [facility] Metoprolol Tartrate (Lopressor) 75 mg PO BID [facility] Last Admin: 06/09/18 18:44 Dose: 75 mg Morphine Sulfate (Morphine) 2 mg IVP Q6H PRN PRN Reason: Pain, moderate (4-7) Last Admin: 06/09/18 22:51 Dose: 2 mg Non-Formulary Medication (Lubiprostone [Amitiza]) 24 mg PO BID [facility] Last Admin: 06/09/18 18:45 Dose: Not Given Nystatin (Nystatin Oral Susp) 5 ml PO QID [facility] Last Admin: 06/09/18 22:32 Dose: 5 ml Nystatin (Mycostatin Cream) 1 ea TOP TID [facility] Last Admin: 06/09/18 18:45 Dose: 1 applic Pantoprazole Sodium (Protonix Ec Tab) 40 mg PO DAILY [facility] Last Admin: 06/09/18 10:56 Dose: 40 mg Verapamil HCl (Verapamil Inj) 2.5 mg IVP Q6H PRN PRN Reason: for heart rate >120 Last Admin: 05/28/18 23:32 Dose: 2.5 mg Verapamil HCl (Calan Tab) 40 mg PO TID [facility] Last Admin: 06/09/18 18:43 Dose: 40 mg - Labs Labs: 06/06/18 06:30 06/07/18 06:30 PT 12.8 SECONDS (9.4-12.5) H 05/20/18 10:45 INR 1.11 (0.93-1.08) H 05/20/18 10:45 APTT 24.7 Seconds (25.1-36.5) L 05/20/18 10:45 - Constitutional Appears: Chronically Ill - ENT Exam ENT Exam: Mucous Membranes Dry - Respiratory Exam Respiratory Exam: Decreased Breath Sounds, Rhonchi Additional comments: high flow nasal cannula - Cardiovascular Exam Cardiovascular Exam: +S1, +S2 Additional comments: right chest port/accessed - GI/Abdominal Exam GI & Abdominal Exam: Soft, Normal Bowel Sounds - Exam Additional comments: incontinent - Extremities Exam Additional comments: 1+pedal edema - Neurological Exam Additional comments: lethargic but arousable,open eyes to voice - Skin Skin Exam: Dry, Warm Assessment and Plan - Assessment and Plan (Free Text) Assessment: A 63 year old female who came in to the ER due to shortness of breath. 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 History of COPD, current smoker,hypertension. 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 DNR/ DNI Plan: Followed up by Social service for discharge placement/disposition Cardiac status stable Stable heart rate and blood pressure Labored breathing on high flow nasal cannula Followed up by palliative care Nutritional support DNR/DNI Continue current medications Continue current treatment Will follow up Plan and treatment discussed with Dr. Simon
[2018-06-10 06:57] LABS: HEMOGLOBIN 10.6 g/dL (12.0-16.0); MEAN CELL VOLUME 97.2 fl (80.0-105.0); MEAN CORPUSCULAR HEMOGLOBIN 32.4 pg (25.0-35.0); MEAN CORPUSCULAR HGB CONC 33.3 g/dl (31.0-37.0); RBC 3.27 10^6/uL (3.5-6.1); RED CELL DISTRIBUTION WIDTH 15.1 % (11.5-14.5); WHITE BLOOD COUNT 5.4 10^3/ul (4.5-11.0)
[2018-06-10 07:19] LABS: ALB/GLOB RATIO 0.8 (1.1-1.8); ALBUMIN 2.3 g/dL (3.0-4.8); ALT/SGPT 32 U/L (7-56); AST/SGOT 46 U/L (14-36); BLOOD UREA NITROGEN 16 mg/dL (7-21); CALCIUM 8.9 mg/dL (8.4-10.5); GFR AFRICAN-AMERICAN > 60; GFR NON-AFRICAN AMERICAN > 60
[2018-06-10 07:20] LABS: PLATELET COUNT 39 10^3/uL (120.0-450.0)
[2018-06-10] MEDS: Budesonide 0.5 mg/2 ml Inhal Susp UD IH SCH ×2 (07:32→19:40)
--- NOTE | 2018-06-10 08:12 | CP.PCM.PN ---
Subjective - Date & Time of Evaluation Date of Evaluation: 06/10/18 Time of Evaluation: 07:10 - Subjective Subjective: Chris Browning DO PGY-2: Hematology and Oncology Progress Note for Dr. Carranza Patient seen and examined at bedside. Patient is resting comfortably in bed. Patient is lethargic, but arousable. She exhibits diminished attention span and does not answer questions. She is on high flow oxygen with a respiratory rate of 24. Chart review indicates patient is refusing meals. Otherwise, patient appears comfortable and in no distress. Objective - Vital Signs/Intake and Output Vital Signs (last 24 hours): Temp Pulse Resp BP Pulse Ox 97.4 F L 96 H 18 103/73 96 06/09/18 22:00 06/09/18 22:00 06/09/18 22:00 06/09/18 22:00 06/09/18 22:00 Intake and Output: 06/10/18 06/10/18 06:59 18:59 Intake Total 720 Balance 720 - Medications Medications: Current Medications Budesonide (Pulmicort Respules) 0.5 mg IH [id number] [facility] Last Admin: 06/10/18 07:32 Dose: 0.5 mg Ergocalciferol (Drisdol 50,000 Intl Units Cap) 1 cap PO Q7D [facility] Last Admin: 06/03/18 10:14 Dose: 1 cap Famotidine (Pepcid) 40 mg PO HS [facility] Last Admin: 06/09/18 22:32 Dose: 40 mg Folic Acid (Folic Acid) 1 mg PO DAILY [facility] Last Admin: 06/09/18 10:49 Dose: 1 mg Sodium Chloride (Sodium Chloride 0.9%) 1,000 mls @ 60 mls/hr IV .[id number] [facility] Last Admin: 06/09/18 14:15 Dose: 60 mls/hr Levalbuterol HCl (Xopenex) 0.63 mg IH [id number] [facility] Last Admin: 06/10/18 07:32 Dose: 0.63 mg Levetiracetam (Keppra) 500 mg PO Q12 [facility] Last Admin: 06/09/18 22:32 Dose: 500 mg Memantine (Namenda) 10 mg PO HS [facility] Last Admin: 06/09/18 22:32 Dose: 10 mg Methylprednisolone (Solu-Medrol) 20 mg IVP BID [facility] Metoprolol Tartrate (Lopressor) 75 mg PO BID [facility] Last Admin: 06/09/18 18:44 Dose: 75 mg Morphine Sulfate (Morphine) 2 mg IVP Q6H PRN PRN Reason: Pain, moderate (4-7) Last Admin: 06/09/18 22:51 Dose: 2 mg Non-Formulary Medication (Lubiprostone [Amitiza]) 24 mg PO BID [facility] Last Admin: 06/09/18 18:45 Dose: Not Given Nystatin (Nystatin Oral Susp) 5 ml PO QID [facility] Last Admin: 06/09/18 22:32 Dose: 5 ml Nystatin (Mycostatin Cream) 1 ea TOP TID [facility] Last Admin: 06/09/18 18:45 Dose: 1 applic Pantoprazole Sodium (Protonix Ec Tab) 40 mg PO DAILY [facility] Last Admin: 06/09/18 10:56 Dose: 40 mg Verapamil HCl (Verapamil Inj) 2.5 mg IVP Q6H PRN PRN Reason: for heart rate >120 Last Admin: 05/28/18 23:32 Dose: 2.5 mg Verapamil HCl (Calan Tab) 40 mg PO TID [facility] Last Admin: 06/09/18 18:43 Dose: 40 mg - Labs Labs: 06/10/18 06:20 06/10/18 06:20 PT 12.8 SECONDS (9.4-12.5) H 05/20/18 10:45 INR 1.11 (0.93-1.08) H 05/20/18 10:45 APTT 24.7 Seconds (25.1-36.5) L 05/20/18 10:45 - Constitutional Appears: Non-toxic, No Acute Distress - Head Exam Additional comments: rai facies - Eye Exam Eye Exam: EOMI, Normal appearance - ENT Exam ENT Exam: Mucous Membranes Moist - Neck Exam Neck Exam: Normal Inspection - Respiratory Exam Respiratory Exam: Clear to Ausculation Bilateral. absent: Accessory Muscle Use Additional comments: respiratory rate of 24 - Cardiovascular Exam Cardiovascular Exam: RRR, +S1, +S2 - GI/Abdominal Exam GI & Abdominal Exam: Soft, Normal Bowel Sounds - Extremities Exam Extremities Exam: Normal Inspection. absent: Calf Tenderness - Neurological Exam Neurological Exam: Awake - Psychiatric Exam Psychiatric exam: Flat Affect - Skin Skin Exam: Dry, Normal Color, Warm Assessment and Plan - Assessment and Plan (Free Text) Assessment: 63 year-old female with a past medical history of metastatic non-small cell lung cancer with metastasis to the brain status post craniotomy, who came in with confusion, fever, and dyspnea on 05/21/18. CT/MRI of the head were negative. Patient was was found to have multifocal infiltrates consistent with healthcare-associated pneumonia and sepsis requiring ICU admission. Patient started on broad-spectrum antibiotic, stress dose steroids, and Keppra for seizure prophylaxis, high flow oxygen with humidified FiO2. Patient clinical status has improved, but patient has a poor prognosis overall. Patients blood cell indices show a progressive pancytopenia, with the automated platelet count being above 20,000. Patient has no signs of active bleeding. Patient is currently on Solumedrol 20 mg q12h JACQUIE given her likely adrenal insufficiency. Patient is DNR and DNI. Palliative care consulted. Continue current management at this time. Case reviewed and discussed with attending physician, Dr. Carranza
[2018-06-10] MEDS: Sodium Chloride 0.9% 1,000 ML IV SCH (08:16)
[2018-06-10] MEDS: Morphine 2 mg/ml ISec IVP PRN (08:34)
--- NOTE | 2018-06-10 08:42 | RAD ---
Date of service: 06/09/2018 HISTORY: infiltrate COMPARISON: 05/31/2018. FINDINGS: The right MediPort terminates at the cavoatrial junction. LUNGS: There is interval development of pulmonary edema. There are persistent diffuse increased interstitial markings in the lungs. PLEURA: Suspect bilateral pleural effusions, no pneumothorax apparent. CARDIOVASCULAR: Normal. OSSEOUS STRUCTURES: No significant abnormalities. VISUALIZED UPPER ABDOMEN: Normal. OTHER FINDINGS: None. IMPRESSION: Findings are most compatible with interval development of pulmonary edema superimposed on interstitial thickening which may represent interstitial edema or chronic interstitial changes.
[2018-06-10] MEDS: Nystatin 100,000 Units/ml Oral Susp 5 ml UD PO SCH ×4 (09:39→21:58)
[2018-06-10] MEDS: Pantoprazole 40 mg EC Tab PO SCH (09:39)
[2018-06-10] MEDS: MethylPREDNISolone 40 mg Vial IVP SCH ×2 (09:39→18:13)
[2018-06-10] MEDS: LUBIPROSTONE 24 MG PO SCH ×2 (09:40→18:12)
[2018-06-10] MEDS: Nystatin 100,000 Units/gm Cream(15 gm) TOP SCH ×3 (09:41→18:13)
[2018-06-10] MEDS: Ergocalciferol 50,000 Intl Units Cap PO SCH (11:28)
[2018-06-10] MEDS ORDERED: Morphine 2 mg/ml ISec IVP ONE (11:58)
[2018-06-10 12:01] LABS: ARTERIAL BLOOD GAS HCO3 21.1 mmol/L (21-28); ARTERIAL BLOOD GAS O2 CAPACITY 16.4 mL/dl (16-24); ARTERIAL BLOOD GAS O2 CONTENT 13.6 ML/dl (15-23); ARTERIAL BLOOD GAS O2 SAT 82.8 % (95-98); ARTERIAL BLOOD GAS PCO2 29 mm/Hg (35-45); ARTERIAL BLOOD GAS PH 7.47 (7.35-7.45)
--- NOTE | 2018-06-10 13:12 | RAD ---
Date of service: 06/10/2018 HISTORY: Low SaO2 COMPARISON: 06/09/2018 FINDINGS: LUNGS: There is a diffuse alveolar infiltrate most consistent with pulmonary edema. Diffuse pneumonia is possible. Findings are unchanged PLEURA: No significant pleural effusion identified, no pneumothorax apparent. CARDIOVASCULAR: Normal. OSSEOUS STRUCTURES: No significant abnormalities. VISUALIZED UPPER ABDOMEN: Normal. OTHER FINDINGS: None. IMPRESSION: There is a diffuse alveolar infiltrate most consistent with pulmonary edema. Diffuse pneumonia is possible. Findings are unchanged
--- NOTE | 2018-06-10 14:40 | PN ---
DATE: 06/10/2018 PULMONARY PROGRESS NOTE REFERRING PHYSICIAN: Yaneth Darby MD SUBJECTIVE: Patient is lying in the bed on high flow oxygen. Earlier day's events noted, been hypoxemic, her high flow is increased to 100% on 60 liters, still sleepy, arousable. Has cold upper and lower extremities, but no cough, no sputum production, no hemoptysis, no hematemesis, no hematuria. OBJECTIVE: GENERAL: In [id number] distress. VITAL SIGNS: Temperature is 98, heart rate 130, respiratory rate 24, blood pressure 137/98, pulse ox is in high 80s. HEENT: Crowded airways. NECK: Supple. No JVD. LUNGS: Have scattered rhonchi. HEART: S1 and S2, tachycardic. ABDOMEN: Soft, nontender. No organomegaly. EXTREMITIES: There is no edema. NEUROLOGIC: Lethargic, sleepy, arousable. MEDICATIONS: She is on Calan 40 mg three times a day, vitamin D 50,000 units every 7 days; folic acid 1 mg daily; Keppra 500 mg every 12 hours, metoprolol tartrate 75 mg twice a day, Amitiza 24 mcg twice a day; morphine sulfate 2 mg IV every 6 hours p.r.n.; Mycostatin cream 3 times a day, Namenda 10 mg at bedtime; Pepcid 40 mg at bedtime; Protonix 40 mg daily; Pulmicort inhaled twice a day; IV fluid normal saline 60 mL/hour; Solu-Medrol 20 mg IV every 12 hours, verapamil 2.5 mg IV every 6 hours p.r.n.; 0.63 every 6 hours. DATA: Laboratory data shows hemoglobin 10.6, hematocrit 31.8, WBC 5.4, platelets 39. Blood gases just done on high flow oxygen show pH 7.47, pCO2 29, O2 43. Sodium 141, potassium 3.8,chloride 107, bicarbonate 26, BUN 16, creatinine 0.6, calcium 8.9. AST 46, ALT 32, alkaline phosphatase 121, albumin 2.3. Chest x-ray which was done yesterday shows pulmonary edema and superimposed interstitial thickening, which may represent interstitial edema. 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 Case discussed with the nursing staff. Also, spoke to respiratory therapist. We will continue high flow oxygen through the nasal cannula. Also, suggested to give IV Lasix. We will discontinue IV fluid. Patient is DNR and DNI Overall poor prognosis, being followed by Palliative Care. Family is involved in the care. Thank you and we will follow with you. Chica Palmer MD
--- NOTE | 2018-06-10 16:37 | CP.PCM.PN ---
Subjective - Date & Time of Evaluation Date of Evaluation: 06/10/18 Time of Evaluation: 11:00 - Subjective Subjective: Patient still on high flow oxygen, no fevers, in mild respiratory distress. Objective - Vital Signs/Intake and Output Vital Signs (last 24 hours): Temp Pulse Resp BP Pulse Ox 98.2 F 130 H 20 137/111 H 95 06/10/18 06:00 06/10/18 09:39 06/10/18 06:00 06/10/18 09:39 06/10/18 06:00 Intake and Output: 06/10/18 06/10/18 06:59 18:59 Intake Total 720 Balance 720 - Medications Medications: Current Medications Budesonide (Pulmicort Respules) 0.5 mg IH [id number] [facility] Last Admin: 06/10/18 07:32 Dose: 0.5 mg Ergocalciferol (Drisdol 50,000 Intl Units Cap) 1 cap PO Q7D [facility] Last Admin: 06/03/18 10:14 Dose: 1 cap Famotidine (Pepcid) 40 mg PO HS [facility] Last Admin: 06/09/18 22:32 Dose: 40 mg Folic Acid (Folic Acid) 1 mg PO DAILY [facility] Last Admin: 06/10/18 09:39 Dose: 1 mg Sodium Chloride (Sodium Chloride 0.9%) 1,000 mls @ 60 mls/hr IV .[id number] [facility] Last Admin: 06/10/18 08:16 Dose: 60 mls/hr Levalbuterol HCl (Xopenex) 0.63 mg IH [id number] [facility] Last Admin: 06/10/18 07:32 Dose: 0.63 mg Levetiracetam (Keppra) 500 mg PO Q12 [facility] Last Admin: 06/10/18 09:39 Dose: 500 mg Memantine (Namenda) 10 mg PO HS [facility] Last Admin: 06/09/18 22:32 Dose: 10 mg Methylprednisolone (Solu-Medrol) 20 mg IVP BID [facility] Last Admin: 06/10/18 09:39 Dose: 20 mg Metoprolol Tartrate (Lopressor) 75 mg PO BID [facility] Last Admin: 06/10/18 09:39 Dose: 75 mg Morphine Sulfate (Morphine) 2 mg IVP Q6H PRN PRN Reason: Pain, moderate (4-7) Last Admin: 06/10/18 08:34 Dose: 2 mg Non-Formulary Medication (Lubiprostone [Amitiza]) 24 mg PO BID [facility] Last Admin: 06/10/18 09:40 Dose: Not Given Nystatin (Nystatin Oral Susp) 5 ml PO QID [facility] Last Admin: 06/10/18 09:39 Dose: 5 ml Nystatin (Mycostatin Cream) 1 ea TOP TID [facility] Last Admin: 06/10/18 09:41 Dose: 1 applic Pantoprazole Sodium (Protonix Ec Tab) 40 mg PO DAILY [facility] Last Admin: 06/10/18 09:39 Dose: 40 mg Verapamil HCl (Verapamil Inj) 2.5 mg IVP Q6H PRN PRN Reason: for heart rate >120 Last Admin: 05/28/18 23:32 Dose: 2.5 mg Verapamil HCl (Calan Tab) 40 mg PO TID [facility] Last Admin: 06/10/18 09:39 Dose: 40 mg - Labs Labs: 06/10/18 06:20 06/10/18 06:20 PT 12.8 SECONDS (9.4-12.5) H 05/20/18 10:45 INR 1.11 (0.93-1.08) H 05/20/18 10:45 APTT 24.7 Seconds (25.1-36.5) L 05/20/18 10:45 - Constitutional Appears: Chronically Ill - Respiratory Exam Respiratory Exam: Decreased Breath Sounds Additional comments: right anterior chest wall port-a-cath in place - Cardiovascular Exam Cardiovascular Exam: +S1, +S2 - GI/Abdominal Exam GI & Abdominal Exam: Soft. absent: Tenderness Assessment and Plan - Assessment and Plan (Free Text) Plan: Assessment S/P severe sepsis due to HCAP non-small cell lung cancer stage 4 with bone metastases on chemotherapy Plan continue to monitor clinically off antibiotics since she is at risk for hospital -acquired infections overall prognosis is poor
[2018-06-11] MEDS: Sodium Chloride 0.9% 1,000 ML IV SCH (00:41)
[2018-06-11] MEDS: Morphine 2 mg/ml ISec IVP PRN ×3 (00:45→13:34)
--- NOTE | 2018-06-11 00:56 | PN ---
DATE: 06/10/2018 SUBJECTIVE: The patient is a 63-year-old female. Patient was seen and examined at bedside on 06/10/2018. having dinner. teachers aide is feeding her. Still on high-flow oxygen, still sleepy. No cough. No sputum production. No hemoptysis. No hematuria. No hematochezia. Earlier today patient was hypoxic. Oxygen was increased by Dr. Palmer. Patient is on high-flow oxygen. Patient is DNR and DNI. Jennifer Talaverashaquille is on the case, talking to the family. PHYSICAL EXAMINATION: VITAL SIGNS: Temperature 98, heart rate 130, respiratory rate 20, blood pressure 137/98 and pulse oximetry is high in 80s. HEENT: Head: Normocephalic. History of surgery. Eyes: PERRLA. Extraocular muscles are intact. Conjunctivae are clear. Nose: Patent. Mucous membranes are moist. NECK: Supple. No carotid bruit. No JVD or thyromegaly. CHEST: Bilaterally symmetrical. HEART: S1 and S2 positive. LUNGS: Has scattered rhonchi. ABDOMEN: Soft. Bowel sounds present. No organomegaly. EXTREMITIES: No edema. No cyanosis. NEUROLOGICAL: Patient is lethargic but moving all four extremities and obeying simple orders. MEDICATIONS: Claritin, vitamin D, Keppra, metoprolol, Amitiza, morphine, Namenda, Pepcid, Protonix, Pulmicort, Solu-Medrol, verapamil. LABORATORY DATA: Hemoglobin 10.6, hematocrit 31.8, white blood cell 5.4, platelets 39. Sodium 141, potassium 3.8, BUN 16, creatinine 0.6, AST 46, ALT 32. ASSESSMENT AND PLAN: Ms. Nicol Brannon is a 63-year-old lady with multiple medical problems, respiratory failure on high-flow oxygen with the nasal cannula, chronic obstructive lung disease, history of lung cancer with metastatic disease to the brain and bones, history of craniotomy with the tumor resection, been on chemotherapy, radiation therapy, history of heavy smoking whole of her life. Discussion done with nursing staff and respiratory therapist. Appreciated Dr. Palmer's input. Plan is to continue high-flow oxygen with nasal cannula and Dr. Palmer gave intravenous Lasix. Discontinue intravenous fluid. Patient is do not resuscitate and do not intubate. Overall prognosis is poor. Followed by Palliative Care. Daughter knows mother's condition. Family is 100% involved in the patient's case. Gastrointestinal and deep venous thrombosis prophylaxis. Repeat labs. We will follow up. Yaneth Darby MD [facility]TDD
[2018-06-11] MEDS: Levalbuterol 0.63 MG/3 ML Inhal Soln UD IH SCH ×4 (02:31→19:32)
--- NOTE | 2018-06-11 06:31 | CP.PCM.PN ---
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 History of COPD, current smoker,hypertension Seen and examined by me and Dr. Simon Objective - Vital Signs/Intake and Output Vital Signs (last 24 hours): Temp Pulse Resp BP Pulse Ox 98.2 F 80 18 96/71 L 96 06/10/18 22:49 06/10/18 22:49 06/11/18 02:34 06/10/18 22:49 06/10/18 22:49 Intake and Output: 06/10/18 06/11/18 18:59 06:59 Output Total 1350 Balance -1350 - Medications Medications: Current Medications Budesonide (Pulmicort Respules) 0.5 mg IH [id number] [facility] Last Admin: 06/10/18 19:40 Dose: 0.5 mg Ergocalciferol (Drisdol 50,000 Intl Units Cap) 1 cap PO Q7D [facility] Last Admin: 06/10/18 11:28 Dose: 1 cap Famotidine (Pepcid) 40 mg PO HS [facility] Last Admin: 06/10/18 21:53 Dose: 40 mg Folic Acid (Folic Acid) 1 mg PO DAILY [facility] Last Admin: 06/10/18 09:39 Dose: 1 mg Sodium Chloride (Sodium Chloride 0.9%) 1,000 mls @ 60 mls/hr IV .[id number] [facility] Last Admin: 06/11/18 00:41 Dose: 60 mls/hr Levalbuterol HCl (Xopenex) 0.63 mg IH [id number] [facility] Last Admin: 06/11/18 02:31 Dose: 0.63 mg Levetiracetam (Keppra) 500 mg PO Q12 [facility] Last Admin: 06/10/18 21:53 Dose: 500 mg Memantine (Namenda) 10 mg PO HS [facility] Last Admin: 06/10/18 21:53 Dose: 10 mg Methylprednisolone (Solu-Medrol) 20 mg IVP BID [facility] Last Admin: 06/10/18 18:13 Dose: 20 mg Metoprolol Tartrate (Lopressor) 75 mg PO BID [facility] Last Admin: 06/10/18 18:12 Dose: 75 mg Morphine Sulfate (Morphine) 2 mg IVP Q6H PRN PRN Reason: Pain, moderate (4-7) Last Admin: 06/11/18 00:45 Dose: 2 mg Non-Formulary Medication (Lubiprostone [Amitiza]) 24 mg PO BID [facility] Last Admin: 06/10/18 18:12 Dose: Not Given Nystatin (Nystatin Oral Susp) 5 ml PO QID [facility] Last Admin: 06/10/18 21:58 Dose: 5 ml Nystatin (Mycostatin Cream) 1 ea TOP TID [facility] Last Admin: 06/10/18 18:13 Dose: 1 applic Pantoprazole Sodium (Protonix Ec Tab) 40 mg PO DAILY [facility] Last Admin: 06/10/18 09:39 Dose: 40 mg Verapamil HCl (Verapamil Inj) 2.5 mg IVP Q6H PRN PRN Reason: for heart rate >120 Last Admin: 05/28/18 23:32 Dose: 2.5 mg Verapamil HCl (Calan Tab) 40 mg PO TID [facility] Last Admin: 06/10/18 18:12 Dose: 40 mg - Labs Labs: 06/10/18 06:20 06/10/18 06:20 PT 12.8 SECONDS (9.4-12.5) H 05/20/18 10:45 INR 1.11 (0.93-1.08) H 05/20/18 10:45 APTT 24.7 Seconds (25.1-36.5) L 05/20/18 10:45 - Constitutional Appears: No Acute Distress, Chronically Ill - ENT Exam ENT Exam: Mucous Membranes Dry - Respiratory Exam Respiratory Exam: Decreased Breath Sounds, Clear to Ausculation Bilateral Additional comments: high flow nasal cannula - Cardiovascular Exam Cardiovascular Exam: +S1, +S2 Additional comments: right chest port/accessed - GI/Abdominal Exam GI & Abdominal Exam: Soft, Normal Bowel Sounds - Exam Additional comments: incontinent - Extremities Exam Extremities Exam: Normal Capillary Refill - Neurological Exam Additional comments: lethargic but arousable - Skin Skin Exam: Dry, Warm Assessment and Plan - Assessment and Plan (Free Text) Assessment: A 63 year old female who came in to the ER due to shortness of breath. 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 History of COPD, current smoker,hypertension. 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 DNR/ DNI. Social service working on placement. Swallowing evaluation done-pureed diet with honey. Aspiration precaution Plan: Swallowing evaluation done-pureed diet with honey Aspiration precaution Followed up by Social service for discharge placement/disposition Cardiac status stable Stable heart rate and blood pressure On high flow nasal cannula Followed up by palliative care Nutritional support Low platelet count, followed up by Dr. Carranza DNR/DNI Continue current medications Continue current treatment Will follow up Plan and treatment discussed with Dr. Simon
[2018-06-11] MEDS: Budesonide 0.5 mg/2 ml Inhal Susp UD IH SCH ×2 (07:11→19:32)
[2018-06-11 07:17] LABS: B-TYPE NATRIURETIC PEPTIDE 1240 pg/mL (0-450)
[2018-06-11 07:23] LABS: ALB/GLOB RATIO 0.8 (1.1-1.8); ALBUMIN 2.3 g/dL (3.0-4.8); ALT/SGPT 30 U/L (7-56); AST/SGOT 38 U/L (14-36); BLOOD UREA NITROGEN 22 mg/dL (7-21); CALCIUM 8.8 mg/dL (8.4-10.5); GFR AFRICAN-AMERICAN > 60; GFR NON-AFRICAN AMERICAN > 60
--- NOTE | 2018-06-11 09:09 | RAD ---
Date of service: 06/11/2018 HISTORY: chf COMPARISON: No prior. FINDINGS: LUNGS: No change in the pattern of diffuse pulmonary edema PLEURA: Small left effusion CARDIOVASCULAR: Normal. OSSEOUS STRUCTURES: No significant abnormalities. VISUALIZED UPPER ABDOMEN: Normal. OTHER FINDINGS: None. IMPRESSION: No change in the pattern of diffuse pulmonary edema
[2018-06-11] MEDS ORDERED: Potassium Chloride 20 mEq/15 ml LIQ UD PO STA (09:54)
[2018-06-11] MEDS: MethylPREDNISolone 40 mg Vial IVP SCH ×2 (11:21→17:53)
[2018-06-11] MEDS: Pantoprazole 40 mg EC Tab PO SCH (11:21)
[2018-06-11] MEDS: LUBIPROSTONE 24 MG PO SCH (11:22)
[2018-06-11] MEDS: Nystatin 100,000 Units/ml Oral Susp 5 ml UD PO SCH ×2 (13:05→22:18)
[2018-06-11] MEDS: Nystatin 100,000 Units/gm Cream(15 gm) TOP SCH (13:05)
[2018-06-11] MEDS ORDERED: Morphine 2 mg/ml ISec IVP PRN (14:08)
--- NOTE | 2018-06-11 15:45 | PN ---
DATE: 06/11/2018 PULMONARY PROGRESS NOTE REFERRING PHYSICIAN: Dr. Yaneth Darby. SUBJECTIVE: She is lying in the bed, head at 45 degrees, more awake and alert since yesterday, on a high-flow supplemental oxygen. Denies any cough or sputum production. No hemoptysis. No night sweats, no hematuria, no diarrhea, no leg swelling. OBJECTIVE: GENERAL: In no acute distress. VITAL SIGNS: Temperature is 98, heart rate is 89, respiratory rate is 20, blood pressure 101/76, pulse ox 95% on high flow nasal cannula. HEENT: Moist mucous membrane. Crowded airway. Mallampati score is 4. NECK: Supple. No JVD. LUNGS: Have scattered rhonchi. HEART: S1 and S2, tachycardic. ABDOMEN: Soft, no tenderness, no organomegaly. EXTREMITIES: There is no edema. NEUROLOGIC: Sleepy, arousable. MEDICATIONS: She is on Calan 40 mg 3 times daily, folic acid 1 mg daily, Keppra 500 mg twice a day, metoprolol tartrate 75 mg twice a day, Amitiza 24 mcg twice a day, morphine 2 mg IV every 6 hours p.r.n. for lower back pain, nystatin to affected area 3 times day, Namenda 10 mg at bedtime, nystatin oral suspension 5 mL 4 times a day, Pepcid 40 mg at bedtime IV fluid with potassium, Protonix 40 mg daily, Pulmicort inhaled twice a day, Solu-Medrol 20 twice a day, verapamil 2.5 mg IV every 6 hours p.r.n., and Xopenex 0.63 every 6 hours. LABORATORY DATA: Reviewed. Noted, sodium 141, potassium 3.7, chloride 107, bicarbonate 28, BUN 22, creatinine 0.7, glucose 105, calcium is 8.8, AST 38, ALT 30, alkaline phosphatase is 112, proBNP 1240, albumin is 2.3. Microbiology, Blood, urine negative cultures, so far there is no growth. Chest x-ray done this morning shows pulmonary edema. IMPRESSION AND PLAN: Respiratory failure, on high flow nasal cannula oxygen, pulmonary edema, cardiac diastolic dysfunction with pulmonary hypertension, history of lung cancer with a metastatic disease to bones and brain, history of craniectomy. The patient is DNR/DNI. Overall poor prognosis. Spoke to nursing staff. Requesting to discontinue intravenous fluids, Lasix 40 mg intravenous is being given, hold beta glenroy for now. If the blood pressure is stable after giving Lasix, may give metoprolol 25 mg p.o. at a time total 75 mg dose, aspiration precaution. May have renal insufficiency on steroids. Followup labs in the morning. Thank you and we will follow with you. Chica Palmer MD
--- NOTE | 2018-06-11 17:15 | CP.PCM.PN ---
Subjective - Date & Time of Evaluation Date of Evaluation: 06/11/18 Time of Evaluation: 11:15 - Subjective Subjective: A little more awake today, still with some SOB at rest. No fevers. Objective - Vital Signs/Intake and Output Vital Signs (last 24 hours): Temp Pulse Resp BP Pulse Ox 97.9 F 89 20 107/78 95 06/11/18 06:00 06/11/18 06:00 06/11/18 06:00 06/11/18 06:00 06/11/18 06:00 Intake and Output: 06/11/18 06/11/18 06:59 18:59 Output Total 1800 Balance -1800 - Medications Medications: Current Medications Budesonide (Pulmicort Respules) 0.5 mg IH [id number] [facility] Last Admin: 06/11/18 07:11 Dose: 0.5 mg Ergocalciferol (Drisdol 50,000 Intl Units Cap) 1 cap PO Q7D [facility] Last Admin: 06/10/18 11:28 Dose: 1 cap Famotidine (Pepcid) 40 mg PO HS [facility] Last Admin: 06/10/18 21:53 Dose: 40 mg Folic Acid (Folic Acid) 1 mg PO DAILY [facility] Last Admin: 06/10/18 09:39 Dose: 1 mg Sodium Chloride (Sodium Chloride 0.9%) 1,000 mls @ 60 mls/hr IV .[id number] [facility] Last Admin: 06/11/18 00:41 Dose: 60 mls/hr Levalbuterol HCl (Xopenex) 0.63 mg IH [id number] [facility] Last Admin: 06/11/18 07:11 Dose: 0.63 mg Levetiracetam (Keppra) 500 mg PO Q12 [facility] Last Admin: 06/10/18 21:53 Dose: 500 mg Memantine (Namenda) 10 mg PO HS [facility] Last Admin: 06/10/18 21:53 Dose: 10 mg Methylprednisolone (Solu-Medrol) 20 mg IVP BID [facility] Last Admin: 06/10/18 18:13 Dose: 20 mg Metoprolol Tartrate (Lopressor) 75 mg PO BID [facility] Last Admin: 06/10/18 18:12 Dose: 75 mg Morphine Sulfate (Morphine) 2 mg IVP Q6H PRN PRN Reason: Pain, moderate (4-7) Last Admin: 06/11/18 08:21 Dose: 2 mg Non-Formulary Medication (Lubiprostone [Amitiza]) 24 mg PO BID [facility] Last Admin: 06/10/18 18:12 Dose: Not Given Nystatin (Nystatin Oral Susp) 5 ml PO QID [facility] Last Admin: 06/10/18 21:58 Dose: 5 ml Nystatin (Mycostatin Cream) 1 ea TOP TID [facility] Last Admin: 06/10/18 18:13 Dose: 1 applic Pantoprazole Sodium (Protonix Ec Tab) 40 mg PO DAILY [facility] Last Admin: 06/10/18 09:39 Dose: 40 mg Verapamil HCl (Verapamil Inj) 2.5 mg IVP Q6H PRN PRN Reason: for heart rate >120 Last Admin: 05/28/18 23:32 Dose: 2.5 mg Verapamil HCl (Calan Tab) 40 mg PO TID [facility] Last Admin: 06/10/18 18:12 Dose: 40 mg - Labs Labs: 06/10/18 06:20 06/11/18 06:40 PT 12.8 SECONDS (9.4-12.5) H 05/20/18 10:45 INR 1.11 (0.93-1.08) H 05/20/18 10:45 APTT 24.7 Seconds (25.1-36.5) L 05/20/18 10:45 - Constitutional Appears: Chronically Ill - Head Exam Head Exam: NORMAL INSPECTION - Neck Exam Neck Exam: absent: Meningismus - Respiratory Exam Respiratory Exam: Decreased Breath Sounds - Cardiovascular Exam Cardiovascular Exam: +S1, +S2 - GI/Abdominal Exam GI & Abdominal Exam: Soft. absent: Tenderness Assessment and Plan - Assessment and Plan (Free Text) Plan: Assessment S/P severe sepsis due to HCAP non-small cell lung cancer stage 4 with bone metastases on chemotherapy Plan continue to monitor clinically off antibiotics since she is at risk for healthcare-associated infections overall prognosis is poor
[2018-06-12] MEDS: Levalbuterol 0.63 MG/3 ML Inhal Soln UD IH SCH ×4 (01:18→19:48)
--- NOTE | 2018-06-12 03:54 | PN ---
DATE: 06/11/2018 Patient is a 63-year-old female. SUBJECTIVE: Patient was seen and examined at the bedside on 06/11/2018. Daughter, boy friend and other family members were around. Patient is awake and alert, on high flow supplemental oxygen. Denies coughing or sputum production, hemoptysis, hematuria, or hematochezia. No diarrhea. PHYSICAL EXAMINATION: VITAL SIGNS: Temperature is 98, heart rate is 89, respiratory rate is 20, blood pressure 110/76, pulse oxymetry 95% on high flow nasal cannula. HEENT: Head normocephalic, atraumatic. Eyes PERRLA, extraocular muscles intact. Conjunctivae are clear. Nose patent. Mucous membranes are moist. NECK: Supple. No carotid bruits or thyromegaly. CHEST: Bilaterally symmetrical. HEART: S1 and S2 positive. LUNGS: Scattered rhonchi. ABDOMEN: Soft, nontender, no organomegaly. EXTREMITIES: No edema, no cyanosis. NEUROLOGIC: Patient is awake, follows simple commands. MEDICATIONS: Calan, folic acid, Keppra, metoprolol, Amitiza, morphine, nystatin, Namenda, nystatin oral suspension, Pepcid, Protonix, Pulmicort inhaler, Solu-Medrol, verapamil, Xopenex. LABORATORY DATA: Sodium 141, potassium 3.7, BUN 22, creatinine 0.7, glucose 105, AST 38, ALT 30. Chest x-ray shows pulmonary edema. ASSESSMENT AND PLAN: Ms. Clovis Camarena is a 63-year-old lady with multiple medical problems, respiratory failure, on high flow nasal cannula oxygen, pulmonary edema, cardiac diastolic dysfunction with pulmonary hypertension, history of lung cancer with metastatic disease to bones and brain, history of craniotomy. Patient is a DNR/DNI. Overall prognosis is poor. Daughter was informed, but still she is in denial. did discussion with the patient's nurse and physical therapy and social worker masters's notes, evaluated in front of us. Discontinue intravenous fluid. Lasix 40 mg intravenously being given. Hold beta glenroy for now. If blood pressure is stable , give Lasix, metoprolol. GI and DVT prophylaxis. Repeat labs. Will follow. Yaneth Darby MD [facility] # [id number] [place]
--- NOTE | 2018-06-12 06:44 | CP.PCM.PN ---
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 History of COPD, current smoker,hypertension Seen and examined by me and Dr. Simon Objective - Vital Signs/Intake and Output Vital Signs (last 24 hours): Temp Pulse Resp BP Pulse Ox 97.9 F 95 H 20 102/74 95 06/11/18 06:00 06/11/18 17:53 06/11/18 18:59 06/11/18 19:11 06/11/18 14:35 Intake and Output: 06/11/18 06/12/18 18:59 06:59 Intake Total 390 Output Total 1450 Balance -1060 - Medications Medications: Current Medications Budesonide (Pulmicort Respules) 0.5 mg IH [id number] [facility] Last Admin: 06/11/18 19:32 Dose: 0.5 mg Famotidine (Pepcid) 40 mg PO [facility] Last Admin: 06/11/18 22:19 Dose: 40 mg Folic Acid (Folic Acid) 1 mg PO DAILY [facility] Last Admin: 06/11/18 11:21 Dose: 1 mg Levalbuterol HCl (Xopenex) 0.63 mg IH [id number] [facility] Last Admin: 06/12/18 01:18 Dose: 0.63 mg Levetiracetam (Keppra) 500 mg PO Q12 [facility] Last Admin: 06/11/18 22:19 Dose: 500 mg Memantine (Namenda) 10 mg PO HS [facility] Last Admin: 06/11/18 22:19 Dose: 10 mg Methylprednisolone (Solu-Medrol) 20 mg IVP BID [facility] Last Admin: 06/11/18 17:53 Dose: 20 mg Metoprolol Tartrate (Lopressor) 75 mg PO BID [facility] Last Admin: 06/11/18 17:53 Dose: 75 mg Morphine Sulfate (Morphine) 2 mg IVP Q5H PRN PRN Reason: Pain, moderate (4-7) Last Admin: 06/12/18 00:49 Dose: 2 mg Non-Formulary Medication (Lubiprostone [Amitiza]) 24 mg PO BID [facility] Last Admin: 06/11/18 11:22 Dose: Not Given Nystatin (Nystatin Oral Susp) 5 ml PO QID [facility] Last Admin: 06/11/18 22:18 Dose: 5 ml Nystatin (Mycostatin Cream) 1 ea TOP TID [facility] Last Admin: 06/11/18 13:05 Dose: 1 applic Pantoprazole Sodium (Protonix Ec Tab) 40 mg PO DAILY [facility] Last Admin: 06/11/18 11:21 Dose: 40 mg Verapamil HCl (Verapamil Inj) 2.5 mg IVP Q6H PRN PRN Reason: for heart rate >120 Last Admin: 05/28/18 23:32 Dose: 2.5 mg Verapamil HCl (Calan Tab) 40 mg PO TID [facility] Last Admin: 06/11/18 15:09 Dose: Not Given - Labs Labs: 06/10/18 06:20 06/11/18 06:40 PT 12.8 SECONDS (9.4-12.5) H 05/20/18 10:45 INR 1.11 (0.93-1.08) H 05/20/18 10:45 APTT 24.7 Seconds (25.1-36.5) L 05/20/18 10:45 - Constitutional Appears: No Acute Distress, Chronically Ill - ENT Exam ENT Exam: Mucous Membranes Dry - Respiratory Exam Respiratory Exam: Decreased Breath Sounds, Rhonchi Additional comments: high flow nasal cannula - Cardiovascular Exam Cardiovascular Exam: +S1, +S2 Additional comments: right chest port/accessed - GI/Abdominal Exam GI & Abdominal Exam: Soft, Normal Bowel Sounds - Exam Additional comments: incontinent - Extremities Exam Extremities Exam: Normal Capillary Refill - Neurological Exam Neurological Exam: Alert, Awake - Psychiatric Exam Psychiatric exam: Normal Affect - Skin Skin Exam: Dry, Warm Assessment and Plan - Assessment and Plan (Free Text) Assessment: A 63 year old female who came in to the ER due to shortness of breath. 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 History of COPD, current smoker,hypertension. 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 DNR/ DNI. Social service working on placement. Swallowing evaluation done-pureed diet with honey. Aspiration precaution Plan: Cardiac status stable Stable heart rate and blood pressure On high flow nasal cannula Followed up by palliative care Nutritional support, on pureed diet Aspiration precaution Followed up by Social service for discharge placement/disposition DNR/DNI Continue current medications Continue current treatment Will follow up Plan and treatment discussed with Dr. Simon
[2018-06-12] MEDS: Budesonide 0.5 mg/2 ml Inhal Susp UD IH SCH ×2 (07:42→19:48)
[2018-06-12 07:48] LABS: ALB/GLOB RATIO 0.8 (1.1-1.8); ALBUMIN 2.5 g/dL (3.0-4.8); ALT/SGPT 30 U/L (7-56); AST/SGOT 41 U/L (14-36); BLOOD UREA NITROGEN 32 mg/dL (7-21); CALCIUM 9.2 mg/dL (8.4-10.5); GFR AFRICAN-AMERICAN > 60; GFR NON-AFRICAN AMERICAN > 60
--- NOTE | 2018-06-12 09:44 | RAD ---
Date of service: 06/12/2018 HISTORY: CHF COMPARISON: 06/11/2018 FINDINGS: LUNGS: There is stable position of right-sided MediPort terminating at the cavoatrial junction. There is redemonstration of a diffuse interstitial thickening in both lungs and patchy airspace disease in the left lower lobe. PLEURA: Stable small left pleural effusion loculated along the left lateral chest wall. No large right pleural effusion. No pneumothorax. CARDIOVASCULAR: Normal. OSSEOUS STRUCTURES: No significant abnormalities. VISUALIZED UPPER ABDOMEN: Normal. OTHER FINDINGS: None. IMPRESSION: Redemonstration of diffuse pulmonary edema superimposed on interstitial edema/thickening and stable loculated left pleural effusion. No significant interval change.
[2018-06-12] MEDS: Pantoprazole 40 mg EC Tab PO SCH (10:53)
[2018-06-12] MEDS: Nystatin 100,000 Units/ml Oral Susp 5 ml UD PO SCH ×3 (10:53→18:56)
[2018-06-12] MEDS: LUBIPROSTONE 24 MG PO SCH (10:54)
[2018-06-12] MEDS: Nystatin 100,000 Units/gm Cream(15 gm) TOP SCH ×3 (10:54→18:57)
[2018-06-12] MEDS: MethylPREDNISolone 40 mg Vial IVP SCH ×2 (10:54→18:56)
--- NOTE | 2018-06-12 14:51 | CP.PCM.PN ---
Subjective - Date & Time of Evaluation Date of Evaluation: 06/12/18 Time of Evaluation: 10:30 - Subjective Subjective: Continues to be on high flow oxygen, no fevers, feels weak. Objective - Vital Signs/Intake and Output Vital Signs (last 24 hours): Temp Pulse Resp BP Pulse Ox 97.6 F 96 H 18 109/82 99 06/12/18 06:00 06/12/18 06:00 06/12/18 06:00 06/12/18 06:00 06/12/18 06:00 Intake and Output: 06/12/18 06/12/18 06:59 18:59 Intake Total 390 Output Total 1450 Balance -1060 - Medications Medications: Current Medications Budesonide (Pulmicort Respules) 0.5 mg IH [id number] [facility] Last Admin: 06/12/18 07:42 Dose: 0.5 mg Famotidine (Pepcid) 40 mg PO HS [facility] Last Admin: 06/11/18 22:19 Dose: 40 mg Folic Acid (Folic Acid) 1 mg PO DAILY [facility] Last Admin: 06/11/18 11:21 Dose: 1 mg Levalbuterol HCl (Xopenex) 0.63 mg IH [id number] [facility] Last Admin: 06/12/18 07:42 Dose: 0.63 mg Levetiracetam (Keppra) 500 mg PO Q12 [facility] Last Admin: 06/11/18 22:19 Dose: 500 mg Memantine (Namenda) 10 mg PO HS [facility] Last Admin: 06/11/18 22:19 Dose: 10 mg Methylprednisolone (Solu-Medrol) 20 mg IVP BID [facility] Last Admin: 06/11/18 17:53 Dose: 20 mg Metoprolol Tartrate (Lopressor) 75 mg PO BID [facility] Last Admin: 06/11/18 17:53 Dose: 75 mg Morphine Sulfate (Morphine) 2 mg IVP Q5H PRN PRN Reason: Pain, moderate (4-7) Last Admin: 06/12/18 00:49 Dose: 2 mg Non-Formulary Medication (Lubiprostone [Amitiza]) 24 mg PO BID [facility] Last Admin: 06/11/18 11:22 Dose: Not Given Nystatin (Nystatin Oral Susp) 5 ml PO QID [facility] Last Admin: 06/11/18 22:18 Dose: 5 ml Nystatin (Mycostatin Cream) 1 ea TOP TID [facility] Last Admin: 06/11/18 13:05 Dose: 1 applic Pantoprazole Sodium (Protonix Ec Tab) 40 mg PO DAILY [facility] Last Admin: 06/11/18 11:21 Dose: 40 mg Verapamil HCl (Verapamil Inj) 2.5 mg IVP Q6H PRN PRN Reason: for heart rate >120 Last Admin: 05/28/18 23:32 Dose: 2.5 mg Verapamil HCl (Calan Tab) 40 mg PO TID [facility] Last Admin: 06/11/18 15:09 Dose: Not Given - Labs Labs: 06/10/18 06:20 06/12/18 07:00 PT 12.8 SECONDS (9.4-12.5) H 05/20/18 10:45 INR 1.11 (0.93-1.08) H 05/20/18 10:45 APTT 24.7 Seconds (25.1-36.5) L 05/20/18 10:45 - Constitutional Appears: Chronically Ill - Head Exam Head Exam: NORMAL INSPECTION - Respiratory Exam Respiratory Exam: Decreased Breath Sounds - Cardiovascular Exam Cardiovascular Exam: +S1, +S2 - GI/Abdominal Exam GI & Abdominal Exam: Soft. absent: Tenderness Assessment and Plan - Assessment and Plan (Free Text) Plan: Assessment S/P severe sepsis due to HCAP non-small cell lung cancer stage 4 with bone metastases on chemotherapy Plan continue to monitor clinically off antibiotics since she is at risk for nosocomial infections overall prognosis is poor
[2018-06-13] MEDS: Levalbuterol 0.63 MG/3 ML Inhal Soln UD IH SCH ×4 (01:19→19:49)
--- NOTE | 2018-06-13 02:38 | PN ---
DATE: 06/12/2018 SUBJECTIVE: Patient is a 63-year-old female. Patient was seen and examined at the bedside on 06/12/2018. No change in the status. Continuously on high-flow oxygen. No nausea, vomiting, or diarrhea. No fever, no chills. No headache, no dizziness. Patient is a very poor historian. PHYSICAL EXAMINATION: VITAL SIGNS: Temperature 97.6, pulse 96, respiratory rate 18, blood pressure 109/82, pulse oxymetry 99. HEENT: Head: Normocephalic, atraumatic. Eyes: PERRLA, extraocular muscles intact. Conjunctivae are clear. Nose: Patent. Mucous membranes are moist. NECK: Supple. No carotid bruits, JVD, or thyromegaly. CHEST: Bilaterally symmetrical. HEART: S1 and S2 positive. LUNGS: Clear to auscultation. ABDOMEN: Soft, bowel sounds present. No organomegaly. EXTREMITIES: No edema, no cyanosis. NEUROLOGIC: Patient is awake, alert, follows simple commands. MEDICATIONS: Pulmicort, Pepcid, folic acid, Xopenex, Keppra, Namenda, Lopressor, morphine, Amitiza, nystatin oral suspension, nystatin cream, Protonix, verapamil, Calan. LABORATORY DATA: White blood cells 5.4, hemoglobin 10.6, hematocrit 31.8, platelets 39. Sodium 142, potassium 3.5, BUN 32, creatinine 0.9, glucose 117. ASSESSMENT AND PLAN: Ms. Nicol Brannon is 63-year-old lady with anemia, thrombocytopenia, hypokalemia, hyperglycemia, has history of sepsis due to healthcare-associated pneumonia, non-small cell lung cancer stage IV with bone metastasis and brain metastasis, status post craniotomy on chemotherapy. Continue monitoring patient off the antibiotics. She is at risk of nosocomial infections. Overall prognosis is poor. Patient is on high-flow oxygen. Length of time discussion done with the patient, myself, Jennifer Larson, and social workers. Patient is do not resuscitate and do not intubate, but patient's daughter is reluctant to make patient hospice. [facility]. We will follow up. Yaneth Darby MD [facility] # [id number]
--- NOTE | 2018-06-13 02:51 | PN ---
DATE: 06/12/2018 PULMONARY PROGRESS NOTE REFERRING PHYSICIAN: Yaneth Darby MD SUBJECTIVE: She is lying in the bed, on high-flow nasal cannula oxygen. More awake and alert, feels better. Pulse ox 99% on high-flow nasal cannula. some p.o. intake. No cough. No sputum production. No hemoptysis. No hematemesis, hematuria, diarrhea reported. OBJECTIVE: GENERAL: In no acute distress. VITAL SIGNS: Temperature 98, heart rate is 101, respiratory rate is 18, blood pressure 99/72, pulse ox 94% on high-flow nasal cannula. HEENT: Moist mucous membrane. Crowded airway. NECK: Supple. No JVD. LUNGS: Has crackles and rhonchi. HEART: S1 and S2. ABDOMEN: Soft, nontender. No organomegaly. EXTREMITIES: There is no edema. NEUROLOGICAL: Awake, alert. Follows simple command. MEDICATIONS: She is on Calan 40 mg three times a day, folic acid 1 mg daily, Keppra 500 mg twice a day, metoprolol tartrate 75 mg twice a day, Amitiza 24 mcg twice a day; morphine 2 mg every 4 hours p.r.n., Mycostatin to affected area three times a day, Namenda 10 mg daily, Pepcid 40 mg daily, Protonix 40 mg daily; Pulmicort inhaled twice a day, Solu-Medrol 20 mg twice a day, verapamil 2.5 mg every 6 hours p.r.n., Xopenex inhaled every 6 hours. LABORATORY DATA: Reviewed, sodium 142, potassium 3.5, chloride 104, bicarbonate 30, BUN 32, creatinine 0.9, glucose 117, calcium 9.2, AST 41, ALT 30, alk phos is 107. Albumin is 2.5. DIAGNOSTIC DATA: Chest x-ray done today shows redemonstration and appears pulmonary edema superimposed on interstitial edema, thickening, stable loculated left pleural effusion. IMPRESSION AND PLAN: Respiratory failure on high-flow nasal cannula, pulmonary edema/chronic lung disease, cardiac diastolic dysfunction, hypertension, history of lung cancer, metastatic disease to bones also metastasis to the brain, requiring craniectomy. Patient is a do not resuscitate/ do not intubate. Spoke to the nursing staff. May titrate high-flow oxygen to pulse ox about 92%. Keep head at 45 degrees. Being followed by Cardiology. We will give p.r.n. basis Lasix and potassium. Continue nebulizer treatment or beta glenroy. Follow up labs in the morning. Waiting for the transfer to the subacute/acute care facility. Thank you and we will follow with you. Chica Palmer MD
--- NOTE | 2018-06-13 06:39 | CP.PCM.PN ---
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 History of COPD, current smoker,hypertension Seen and examined by me and Dr. Simon Objective - Vital Signs/Intake and Output Vital Signs (last 24 hours): Temp Pulse Resp BP Pulse Ox 97.6 F 101 H 14 99/72 L 94 L 06/12/18 14:00 06/12/18 18:56 06/13/18 01:20 06/12/18 18:55 06/12/18 14:00 Intake and Output: 06/12/18 06/13/18 18:59 06:59 Output Total 450 Balance -450 - Medications Medications: Current Medications Budesonide (Pulmicort Respules) 0.5 mg IH [id number] [facility] Last Admin: 06/12/18 19:48 Dose: 0.5 mg Famotidine (Pepcid) 40 mg PO [facility] Last Admin: 06/12/18 21:35 Dose: 40 mg Folic Acid (Folic Acid) 1 mg PO DAILY [facility] Last Admin: 06/12/18 10:53 Dose: 1 mg Levalbuterol HCl (Xopenex) 0.63 mg IH [id number] [facility] Last Admin: 06/13/18 01:19 Dose: 0.63 mg Levetiracetam (Keppra) 500 mg PO Q12 [facility] Last Admin: 06/12/18 21:35 Dose: 500 mg Memantine (Namenda) 10 mg PO HS [facility] Last Admin: 06/12/18 21:35 Dose: 10 mg Methylprednisolone (Solu-Medrol) 20 mg IVP BID [facility] Last Admin: 06/12/18 18:56 Dose: 20 mg Metoprolol Tartrate (Lopressor) 75 mg PO BID [facility] Last Admin: 06/12/18 18:56 Dose: 75 mg Morphine Sulfate (Morphine) 2 mg IVP Q5H PRN PRN Reason: Pain, moderate (4-7) Non-Formulary Medication (Lubiprostone [Amitiza]) 24 mg PO BID [facility] Last Admin: 06/12/18 10:54 Dose: Not Given Nystatin (Nystatin Oral Susp) 5 ml PO QID [facility] Last Admin: 06/12/18 18:56 Dose: 5 ml Nystatin (Mycostatin Cream) 1 ea TOP TID [facility] Last Admin: 06/12/18 18:57 Dose: 1 applic Pantoprazole Sodium (Protonix Ec Tab) 40 mg PO DAILY [facility] Last Admin: 06/12/18 10:53 Dose: 40 mg Verapamil HCl (Verapamil Inj) 2.5 mg IVP Q6H PRN PRN Reason: for heart rate >120 Last Admin: 05/28/18 23:32 Dose: 2.5 mg Verapamil HCl (Calan Tab) 40 mg PO TID [facility] Last Admin: 06/12/18 18:55 Dose: Not Given - Labs Labs: 06/10/18 06:20 06/12/18 07:00 PT 12.8 SECONDS (9.4-12.5) H 05/20/18 10:45 INR 1.11 (0.93-1.08) H 05/20/18 10:45 APTT 24.7 Seconds (25.1-36.5) L 05/20/18 10:45 - Constitutional Appears: Chronically Ill - ENT Exam ENT Exam: Mucous Membranes Dry - Respiratory Exam Respiratory Exam: Decreased Breath Sounds, Rhonchi Additional comments: mild labored breathing, high flow nasal cannula - Cardiovascular Exam Additional comments: right chest port/accessed - GI/Abdominal Exam GI & Abdominal Exam: Soft, Normal Bowel Sounds - Exam Additional comments: incontinent - Extremities Exam Extremities Exam: Normal Capillary Refill - Neurological Exam Additional comments: lethargic but arousable,responds to verbal stimuli - Skin Skin Exam: Dry, Warm Assessment and Plan - Assessment and Plan (Free Text) Assessment: A 63 year old female who came in to the ER due to shortness of breath. 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 History of COPD, current smoker,hypertension. 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 DNR/ DNI. Social service working on placement. Swallowing evaluation done-pureed diet with honey. Aspiration precaution Plan: Awaiting authorization/decision from insurance for discharge placement Cardiac status stable Stable heart rate and blood pressure On high flow nasal cannula Aspiration precaution DNR/DNI Replenish potassium Continue current medications Continue current treatment Will follow up Plan and treatment discussed with Dr. Simon
[2018-06-13] MEDS ORDERED: Potassium Chloride 20 mEq/15 ml LIQ UD PO STA (06:44)
[2018-06-13 07:10] LABS: ALB/GLOB RATIO 0.9 (1.1-1.8); ALBUMIN 2.4 g/dL (3.0-4.8); ALT/SGPT 34 U/L (7-56); AST/SGOT 35 U/L (14-36); BLOOD UREA NITROGEN 32 mg/dL (7-21); CALCIUM 9.1 mg/dL (8.4-10.5); GFR AFRICAN-AMERICAN > 60; GFR NON-AFRICAN AMERICAN > 60
--- NOTE | 2018-06-13 07:23 | CP.PCM.PN ---
Subjective - Date & Time of Evaluation Date of Evaluation: 06/13/18 Time of Evaluation: 07:30 - Subjective Subjective: Sterling Finley D.O. PGY-1, Internal Medicine Resident, Heme Onc Progress Note Pt seen and examined at bedside. Pt sleeping upon arrival to room. Pt difficult to communicate with and difficult to wake up. Per nurse, pt did not experience any adverse events overnight. Pt denies any new complaints. Objective - Vital Signs/Intake and Output Vital Signs (last 24 hours): Temp Pulse Resp BP Pulse Ox 97.6 F 101 H 14 99/72 L 94 L 06/12/18 14:00 06/12/18 18:56 06/13/18 01:20 06/12/18 18:55 06/12/18 14:00 Intake and Output: 06/13/18 06/13/18 06:59 18:59 Output Total 450 Balance -450 - Medications Medications: Current Medications Budesonide (Pulmicort Respules) 0.5 mg IH [id number] [facility] Last Admin: 06/12/18 19:48 Dose: 0.5 mg Famotidine (Pepcid) 40 mg PO HS [facility] Last Admin: 06/12/18 21:35 Dose: 40 mg Folic Acid (Folic Acid) 1 mg PO DAILY [facility] Last Admin: 06/12/18 10:53 Dose: 1 mg Levalbuterol HCl (Xopenex) 0.63 mg IH [id number] [facility] Last Admin: 06/13/18 01:19 Dose: 0.63 mg Levetiracetam (Keppra) 500 mg PO Q12 [facility] Last Admin: 06/12/18 21:35 Dose: 500 mg Memantine (Namenda) 10 mg PO HS [facility] Last Admin: 06/12/18 21:35 Dose: 10 mg Methylprednisolone (Solu-Medrol) 20 mg IVP BID [facility] Last Admin: 06/12/18 18:56 Dose: 20 mg Metoprolol Tartrate (Lopressor) 75 mg PO BID [facility] Last Admin: 06/12/18 18:56 Dose: 75 mg Morphine Sulfate (Morphine) 2 mg IVP Q5H PRN PRN Reason: Pain, moderate (4-7) Non-Formulary Medication (Lubiprostone [Amitiza]) 24 mg PO BID [facility] Last Admin: 06/12/18 10:54 Dose: Not Given Nystatin (Nystatin Oral Susp) 5 ml PO QID [facility] Last Admin: 06/12/18 18:56 Dose: 5 ml Nystatin (Mycostatin Cream) 1 ea TOP TID [facility] Last Admin: 06/12/18 18:57 Dose: 1 applic Pantoprazole Sodium (Protonix Ec Tab) 40 mg PO DAILY [facility] Last Admin: 06/12/18 10:53 Dose: 40 mg Verapamil HCl (Verapamil Inj) 2.5 mg IVP Q6H PRN PRN Reason: for heart rate >120 Last Admin: 05/28/18 23:32 Dose: 2.5 mg Verapamil HCl (Calan Tab) 40 mg PO TID [facility] Last Admin: 06/12/18 18:55 Dose: Not Given - Labs Labs: 06/10/18 06:20 06/13/18 06:00 PT 12.8 SECONDS (9.4-12.5) H 05/20/18 10:45 INR 1.11 (0.93-1.08) H 05/20/18 10:45 APTT 24.7 Seconds (25.1-36.5) L 05/20/18 10:45 - Constitutional Appears: No Acute Distress, Chronically Ill - Head Exam Additional comments: rai facies - Eye Exam Eye Exam: EOMI - ENT Exam ENT Exam: Mucous Membranes Moist - Neck Exam Neck Exam: Normal Inspection - Respiratory Exam Respiratory Exam: Decreased Breath Sounds, Wheezes - Cardiovascular Exam Cardiovascular Exam: REGULAR RHYTHM, RRR, +S1, +S2 - GI/Abdominal Exam GI & Abdominal Exam: Soft, Normal Bowel Sounds - Rectal Exam Rectal Exam: Deferred - Extremities Exam Extremities Exam: Pedal Edema. absent: Calf Tenderness - Neurological Exam Neurological Exam: Awake, CN II-XII Intact - Psychiatric Exam Psychiatric exam: Normal Affect - Skin Skin Exam: Normal Color Assessment and Plan - Assessment and Plan (Free Text) Assessment: 63 year-old female with a past medical history of metastatic non-small cell lung cancer with metastasis to the brain status post craniotomy, who came in with confusion, fever, and dyspnea on 05/21/18. CT/MRI of the head were negative. Patient was was found to have multifocal infiltrates consistent with healthcare-associated pneumonia and sepsis requiring ICU admission. Patient started on broad-spectrum antibiotic, stress dose steroids, and Keppra for seizure prophylaxis, high flow oxygen with humidified FiO2. Patient clinical status has improved, but patient has a poor prognosis overall. Patients blood cell indices show a progressive pancytopenia, with the automated platelet count being above 20,000. Patient has no signs of active bleeding. Patient is currently on Solumedrol 20 mg q12h JACQUIE given her likely adrenal insufficiency. Patient is DNR and DNI. Per Cydney Ley, pt to be transferred to [facility]. Thank you for allowing us to participate in the care of this patient. We will continue to follow pt while in house. Case reviewed and discussed with attending physician, Dr. Dillon Finley PGY-1
[2018-06-13] MEDS: Budesonide 0.5 mg/2 ml Inhal Susp UD IH SCH ×2 (07:36→19:49)
--- NOTE | 2018-06-13 07:58 | PN ---
DATE: 06/12/2018 REASON FOR DICTATION: Signing out for the case. TYPE OF DICTATION: Addendum to the initial progress note dictated by our nurse practitioner, Jazmine Strickland. Patient is stable. Overall, the patient's condition is critical, history of non-small cell with metastasis to the brain, status post chemotherapy. Code status DNR. Continue supportive care. We will sign off. No aggressive cardiac management at this time. We will sign off and glad to follow p.r.n. Thank you, Dr. Darby, for providing us the opportunity in taking care of patient, Nicol Brannon. Chica Simon MD
[2018-06-13] MEDS: Pantoprazole 40 mg EC Tab PO SCH (10:19)
[2018-06-13] MEDS: MethylPREDNISolone 40 mg Vial IVP SCH ×2 (10:20→18:51)
[2018-06-13] MEDS: Nystatin 100,000 Units/ml Oral Susp 5 ml UD PO SCH ×3 (10:20→20:35)
[2018-06-13] MEDS: LUBIPROSTONE 24 MG PO SCH ×2 (10:28→20:34)
[2018-06-13] MEDS: Nystatin 100,000 Units/gm Cream(15 gm) TOP SCH ×3 (10:28→20:34)
--- NOTE | 2018-06-13 12:55 | CP.PCM.PN ---
Subjective - Date & Time of Evaluation Date of Evaluation: 06/12/18 Time of Evaluation: 11:30 - Subjective Subjective: Weak, still requiring high flow oxygen with occasional breathing difficulties at rest. No fevers. Objective - Vital Signs/Intake and Output Vital Signs (last 24 hours): Temp Pulse Resp BP Pulse Ox 97.6 F 101 H 18 99/72 L 94 L 06/12/18 14:00 06/12/18 18:56 06/12/18 14:00 06/12/18 18:55 06/12/18 14:00 Intake and Output: 06/12/18 06/13/18 18:59 06:59 Output Total 200 Balance -200 - Medications Medications: Current Medications Budesonide (Pulmicort Respules) 0.5 mg IH [id number] [facility] Last Admin: 06/12/18 19:48 Dose: 0.5 mg Famotidine (Pepcid) 40 mg PO HS [facility] Last Admin: 06/12/18 21:35 Dose: 40 mg Folic Acid (Folic Acid) 1 mg PO DAILY [facility] Last Admin: 06/12/18 10:53 Dose: 1 mg Levalbuterol HCl (Xopenex) 0.63 mg IH [id number] [facility] Last Admin: 06/12/18 19:48 Dose: 0.63 mg Levetiracetam (Keppra) 500 mg PO Q12 [facility] Last Admin: 06/12/18 21:35 Dose: 500 mg Memantine (Namenda) 10 mg PO HS [facility] Last Admin: 06/12/18 21:35 Dose: 10 mg Methylprednisolone (Solu-Medrol) 20 mg IVP BID [facility] Last Admin: 06/12/18 18:56 Dose: 20 mg Metoprolol Tartrate (Lopressor) 75 mg PO BID [facility] Last Admin: 06/12/18 18:56 Dose: 75 mg Morphine Sulfate (Morphine) 2 mg IVP Q5H PRN PRN Reason: Pain, moderate (4-7) Non-Formulary Medication (Lubiprostone [Amitiza]) 24 mg PO BID [facility] Last Admin: 06/12/18 10:54 Dose: Not Given Nystatin (Nystatin Oral Susp) 5 ml PO QID [facility] Last Admin: 06/12/18 18:56 Dose: 5 ml Nystatin (Mycostatin Cream) 1 ea TOP TID [facility] Last Admin: 06/12/18 18:57 Dose: 1 applic Pantoprazole Sodium (Protonix Ec Tab) 40 mg PO DAILY [facility] Last Admin: 06/12/18 10:53 Dose: 40 mg Verapamil HCl (Verapamil Inj) 2.5 mg IVP Q6H PRN PRN Reason: for heart rate >120 Last Admin: 05/28/18 23:32 Dose: 2.5 mg Verapamil HCl (Calan Tab) 40 mg PO TID [facility] Last Admin: 06/12/18 18:55 Dose: Not Given - Labs Labs: 06/10/18 06:20 06/12/18 07:00 PT 12.8 SECONDS (9.4-12.5) H 05/20/18 10:45 INR 1.11 (0.93-1.08) H 05/20/18 10:45 APTT 24.7 Seconds (25.1-36.5) L 05/20/18 10:45 - Constitutional Appears: Chronically Ill - Head Exam Head Exam: NORMAL INSPECTION - Respiratory Exam Respiratory Exam: Decreased Breath Sounds - Cardiovascular Exam Cardiovascular Exam: +S1, +S2 - GI/Abdominal Exam GI & Abdominal Exam: Soft. absent: Tenderness Assessment and Plan - Assessment and Plan (Free Text) Plan: Assessment S/P severe sepsis due to HCAP non-small cell lung cancer stage 4 with bone metastases on chemotherapy Plan continue to monitor clinically off antibiotics since she is at risk for hospital -acquired infections overall prognosis is poor
[2018-06-13] MEDS: Morphine 2 mg/2 mL syringe IVP PRN (23:09)
--- NOTE | 2018-06-13 23:22 | PN ---
DATE: 06/13/2018 PULMONARY PROGRESS NOTE REFERRING PHYSICIAN: Yaneth Darby MD. SUBJECTIVE: The patient is sitting up in bed with high-flow nasal cannula oxygen, more awake and alert. Family at bedside. No cough. No phlegm. No hemoptysis. No hematemesis. No hematuria reported. PHYSICAL EXAMINATION: VITAL SIGNS: Temperature 97.4, pulse 85, blood pressure 97/72, respirations 19, pulse ox 95%. GENERAL: The patient is sitting up in bed, in no acute distress. HEENT: Moist mucous membrane. Crowded airway. NECK: Supple. No JVD. LUNGS: Few rhonchi. Crackles at the bases. HEART: S1 and S2. ABDOMEN: Soft and nontender. EXTREMITIES: No edema. NEUROLOGIC: Awake, alert. Follows simple commands. LABORATORY DATA: Reviewed. Sodium 143, potassium 3.4, chloride 106, carbon dioxide 30, anion gap of 11, BUN 32, creatinine 0.7, GFR greater than 60, glucose 107, calcium 9.1, phosphorus 3.3, magnesium 1.7. Bilirubin 0.6, AST 35, ALT 34, alkaline phosphatase 96, protein 5.2, albumin 2.4, globulin 2.8. A/G ratio 0.9. Chest x-ray showed diffuse pulmonary edema with interstitial thickening, left pleural effusion. MEDICATIONS: Reviewed. Morphine sulfate 2 mg IV push every 5 hours as needed. No other changes to medications since yesterday. IMPRESSION AND PLAN: Respiratory failure, on high-flow nasal cannula, pulmonary edema, chronic lung disease, cardiac diastolic dysfunction, hypertension, history of lung cancer, metastatic disease to the bones and also to the brain requiring craniotomy. Do not resuscitate/do not intubate. Case discussed with family at bedside and nursing staff. Answered all questions. May titrate high-flow nasal oxygen to pulse ox about 90% to 92%. Keep head elevated at 45 degrees. Continue Cardiology followup. Continue Lasix and potassium as needed basis. Continue bronchodilators, nebulizer treatments, and beta-blockers. Also spoke to SW, waiting for authorization for transfer to facility. This patient was examined with Dr. Palmer and discussed assessment and plan as described above. Thank you for this consult and we will follow with you. Tricia Taylor APN Chica Palmer MD [facility] # [id number] [facility]
[2018-06-14] MEDS: Levalbuterol 0.63 MG/3 ML Inhal Soln UD IH SCH ×4 (02:16→20:30)
[2018-06-14] MEDS: Budesonide 0.5 mg/2 ml Inhal Susp UD IH SCH ×2 (07:24→20:30)
[2018-06-14] MEDS: Morphine 2 mg/2 mL syringe IVP PRN (09:08)
[2018-06-14] MEDS: MethylPREDNISolone 40 mg Vial IVP SCH ×2 (09:47→17:38)
[2018-06-14] MEDS: LUBIPROSTONE 24 MG PO SCH ×2 (09:52→18:26)
[2018-06-14] MEDS: Nystatin 100,000 Units/gm Cream(15 gm) TOP SCH ×3 (09:53→18:27)
[2018-06-14] MEDS: Pantoprazole 40 mg EC Tab PO SCH (09:53)
--- NOTE | 2018-06-14 12:57 | CP.PCM.PN ---
Subjective - Date & Time of Evaluation Date of Evaluation: 06/13/18 Time of Evaluation: 09:00 - Subjective Subjective: Ill-appearing, still with high flow oxygen, no fevers overnight. Objective - Vital Signs/Intake and Output Vital Signs (last 24 hours): Temp Pulse Resp BP Pulse Ox 98.0 F 107 H 16 97/71 L 95 06/13/18 22:00 06/13/18 22:00 06/13/18 22:00 06/13/18 22:00 06/13/18 22:00 - Medications Medications: Current Medications Budesonide (Pulmicort Respules) 0.5 mg IH [id number] [facility] Last Admin: 06/13/18 19:49 Dose: 0.5 mg Famotidine (Pepcid) 40 mg PO HS [facility] Last Admin: 06/13/18 21:35 Dose: 40 mg Folic Acid (Folic Acid) 1 mg PO DAILY [facility] Last Admin: 06/13/18 10:19 Dose: 1 mg Levalbuterol HCl (Xopenex) 0.63 mg IH [id number] [facility] Last Admin: 06/13/18 19:49 Dose: 0.63 mg Levetiracetam (Keppra) 500 mg PO Q12 [facility] Last Admin: 06/13/18 21:35 Dose: 500 mg Memantine (Namenda) 10 mg PO HS [facility] Last Admin: 06/13/18 21:35 Dose: 10 mg Methylprednisolone (Solu-Medrol) 20 mg IVP BID [facility] Last Admin: 06/13/18 18:51 Dose: 20 mg Metoprolol Tartrate (Lopressor) 75 mg PO BID [facility] Last Admin: 06/13/18 18:54 Dose: 75 mg Morphine Sulfate (Morphine) 2 mg IVP Q5H PRN PRN Reason: Pain, moderate (4-7) Last Admin: 06/13/18 23:09 Dose: 2 mg Non-Formulary Medication (Lubiprostone [Amitiza]) 24 mg PO BID [facility] Last Admin: 06/13/18 20:34 Dose: Not Given Nystatin (Mycostatin Cream) 1 ea TOP TID [facility] Last Admin: 06/13/18 20:34 Dose: 1 applic Pantoprazole Sodium (Protonix Ec Tab) 40 mg PO DAILY [facility] Last Admin: 06/13/18 10:19 Dose: 40 mg Verapamil HCl (Verapamil Inj) 2.5 mg IVP Q6H PRN PRN Reason: for heart rate >120 Last Admin: 05/28/18 23:32 Dose: 2.5 mg Verapamil HCl (Calan Tab) 40 mg PO TID [facility] Last Admin: 06/13/18 20:33 Dose: Not Given - Labs Labs: 06/10/18 06:20 06/13/18 06:00 PT 12.8 SECONDS (9.4-12.5) H 05/20/18 10:45 INR 1.11 (0.93-1.08) H 05/20/18 10:45 APTT 24.7 Seconds (25.1-36.5) L 05/20/18 10:45 - Constitutional Appears: Chronically Ill - Head Exam Head Exam: NORMAL INSPECTION - Respiratory Exam Respiratory Exam: Decreased Breath Sounds Additional comments: right sided port in place - Cardiovascular Exam Cardiovascular Exam: +S1, +S2 - GI/Abdominal Exam GI & Abdominal Exam: Soft. absent: Tenderness Assessment and Plan - Assessment and Plan (Free Text) Plan: Assessment S/P severe sepsis due to HCAP non-small cell lung cancer stage 4 with bone metastases on chemotherapy Plan continue to monitor clinically off antibiotics since she is at risk for healthcare-associated infections overall prognosis is poor
[2018-06-14] MEDS ORDERED: Morphine 2 mg/2 mL syringe IVP PRN ×2 (15:31→23:29)
--- NOTE | 2018-06-14 21:57 | PN ---
DATE: 06/14/2018 PULMONARY PROGRESS NOTE REFERRING PHYSICIAN: Yaneth Darby MD SUBJECTIVE: The patient is sleepy, sedated, lying in bed, comfortable. Family at bedside. Nursing staff reported patient desaturated while attempting to transport to facility after taking high-flow nasal cannula off, so transport was cancelled. OBJECTIVE: VITAL SIGNS: Temperature 97.6, pulse 115, blood pressure 108/76, respirations 22, pulse ox 99% on high-flow O2. GENERAL: The patient is lying in bed, elevated at 45 degrees, in no acute distress. HEENT: Moist mucous membrane. NECK: Supple. No JVD. LUNGS: Decreased. CARDIAC: S1 and S2. ABDOMEN: Soft and nontender. EXTREMITIES: No edema. NEUROLOGIC: Sedated at present time. MEDICATIONS: Reviewed. Acetaminophen 650 mg suppository and morphine sulfate decreased to 1.5 IV push every 5 hours as needed for moderate pain. LABORATORY DATA: Laboratory results reviewed. No new data since yesterday. IMPRESSION AND PLAN: Respiratory failure, on high-flow nasal cannula, pulmonary edema, chronic lung disease, cardiac diastolic dysfunction, hypertension, history of lung cancer metastatic to the bone and brain, requiring craniotomy, DNR/DNI. Spoke to the patient's daughter in detail regarding the patient's poor prognosis. She expressed bringing patient to subacute rehab. If the patient cannot tolerate, then they will consider hospice at the patient's home. Does not want the patient inpatient hospice. All questions answered. Continue inhale bronchodilators, nebulizer treatments and beta-glenroy. Also spoke to nursing staff. Agreed with plan. Continue titrate high flow NC pulse ox greater than >90%.This patient was examined with Dr. Palmer and discussed assessment and plan as described above. Thank you for this consult and we will follow with you. Tricia Taylor APN Chica Palmer MD [facility]
[2018-06-15] MEDS: Levalbuterol 0.63 MG/3 ML Inhal Soln UD IH SCH ×4 (01:45→20:37)
--- NOTE | 2018-06-15 03:47 | PN ---
DATE: 06/14/2018 SUBJECTIVE: Patient is a 63-year-old female. Patient was seen and examined at the bedside on 06/14/2018, looking comfortable. No nausea, vomiting, diarrhea. No hematuria or hematochezia. No swelling of the legs. No chest pain. No palpitation. Patient looks like very lethargic, still with high-flow oxygen. No fever overnight. No episode happened last night, but looks like ill-appearing. Patient's two sisters, daughter, and nieces are on the bedside. PHYSICAL EXAMINATION: VITAL SIGNS: Temperature 98, pulse 107, respiratory rate 16, blood pressure 97/71, pulse oximetry 95. HEENT: Head normocephalic, atraumatic. Eyes closed. Nose patent. Mucous membranes moist. NECK: Supple. No carotid bruits, JVD, or thyromegaly. CHEST: Bilaterally symmetrical. HEART: S1 and S2 positive. LUNGS: Positive wheezing bilaterally. ABDOMEN: Soft, positive organomegaly. EXTREMITIES: No edema, no cyanosis. NEUROLOGIC: Patient is sleepy, arousable. Obeying simple orders. MEDICATIONS: Pulmicort, Pepcid, folic acid, Xopenex, Keppra, Namenda, Solu-Medrol, Lopressor, morphine, Amitiza, Mycostatin, Protonix, verapamil (Calan). LABORATORY DATA: White blood cells 5.4, hemoglobin 10.6, hematocrit 31.8, platelets 39. Sodium 143, potassium 3.4, BUN 32, creatinine 0.7, glucose noted ASSESSMENT AND PLAN: Ms. Nicol Brannon is a 63-year-old lady with anemia of chronic disease, thrombocytopenia, hypokalemia, renal insufficiency, pain of malignancy, status post severe sepsis due to pneumonia, non-small cell lung cancer stage IV with bone metastasis and brain metastasis, status post craniotomy and chemotherapy, Continue monitoring clinically off the antibiotics, since patient is at risk for healthcare-associated infections. Overall prognosis is poor. Family is aware. Cutting down patient's pain medication. Gastrointestinal and deep vein thrombosis prophylaxes. We will follow up. Yaneth Darby MD [facility] # [id number] [facility]
[2018-06-15] MEDS: Budesonide 0.5 mg/2 ml Inhal Susp UD IH SCH ×2 (07:12→20:37)
[2018-06-15] MEDS: MethylPREDNISolone 40 mg Vial IVP SCH ×2 (11:49→18:08)
[2018-06-15] MEDS: Pantoprazole 40 mg EC Tab PO SCH (11:49)
[2018-06-15] MEDS: Nystatin 100,000 Units/gm Cream(15 gm) TOP SCH ×3 (11:57→18:09)
[2018-06-15] MEDS: LUBIPROSTONE 24 MG PO SCH (11:57)
[2018-06-15] MEDS: Morphine 2 mg/ml ISec IM PRN (13:25)
--- NOTE | 2018-06-15 17:00 | CP.PCM.PN ---
Subjective - Date & Time of Evaluation Date of Evaluation: 06/15/18 Time of Evaluation: 12:00 - Subjective Subjective: Still on high flow oxygen, weak-looking, no fevers overnight. Objective - Vital Signs/Intake and Output Vital Signs (last 24 hours): Temp Pulse Resp BP Pulse Ox 97.8 F 122 H 20 95/70 L 96 06/14/18 21:57 06/14/18 21:57 06/15/18 07:16 06/14/18 21:57 06/14/18 21:57 Intake and Output: 06/15/18 06/15/18 06:59 18:59 Intake Total 120 Balance 120 - Medications Medications: Current Medications Acetaminophen (Tylenol 650 Mg Supp) 650 mg RC Q6H PRN PRN Reason: Pain, Mild (1-3) Budesonide (Pulmicort Respules) 0.5 mg IH [id number] [facility] Last Admin: 06/15/18 07:12 Dose: 0.5 mg Famotidine (Pepcid) 40 mg PO [facility] Last Admin: 06/14/18 21:02 Dose: 40 mg Folic Acid (Folic Acid) 1 mg PO DAILY [facility] Last Admin: 06/14/18 12:11 Dose: Not Given Levalbuterol HCl (Xopenex) 0.63 mg IH [id number] [facility] Last Admin: 06/15/18 07:12 Dose: 0.63 mg Levetiracetam (Keppra) 500 mg PO Q12 [facility] Last Admin: 06/14/18 21:02 Dose: 500 mg Memantine (Namenda) 10 mg PO [facility] Last Admin: 06/14/18 21:02 Dose: 10 mg Methylprednisolone (Solu-Medrol) 20 mg IVP BID [facility] Last Admin: 06/14/18 17:38 Dose: 20 mg Metoprolol Tartrate (Lopressor) 75 mg PO BID [facility] Last Admin: 06/14/18 18:26 Dose: Not Given Morphine Sulfate (Morphine) 1 mg IVP Q5H PRN PRN Reason: Pain, moderate (4-7) Last Admin: 06/15/18 02:43 Dose: 1 mg Non-Formulary Medication (Lubiprostone [Amitiza]) 24 mg PO BID [facility] Last Admin: 06/14/18 18:26 Dose: Not Given Nystatin (Mycostatin Cream) 1 ea TOP TID [facility] Last Admin: 06/14/18 18:27 Dose: Not Given Pantoprazole Sodium (Protonix Ec Tab) 40 mg PO DAILY [facility] Last Admin: 06/14/18 09:53 Dose: Not Given Verapamil HCl (Verapamil Inj) 2.5 mg IVP Q6H PRN PRN Reason: for heart rate >120 Last Admin: 05/28/18 23:32 Dose: 2.5 mg Verapamil HCl (Calan Tab) 40 mg PO TID [facility] Last Admin: 06/14/18 18:26 Dose: Not Given - Labs Labs: 06/10/18 06:20 06/13/18 06:00 PT 12.8 SECONDS (9.4-12.5) H 05/20/18 10:45 INR 1.11 (0.93-1.08) H 05/20/18 10:45 APTT 24.7 Seconds (25.1-36.5) L 05/20/18 10:45 - Constitutional Appears: Chronically Ill - Head Exam Head Exam: NORMAL INSPECTION - Respiratory Exam Respiratory Exam: Decreased Breath Sounds - Cardiovascular Exam Cardiovascular Exam: +S1, +S2 - GI/Abdominal Exam GI & Abdominal Exam: Soft. absent: Tenderness Assessment and Plan - Assessment and Plan (Free Text) Plan: Assessment S/P severe sepsis due to HCAP non-small cell lung cancer stage 4 with bone metastases on chemotherapy Plan continue to monitor clinically off antibiotics since she is at risk for nosocomial infections overall prognosis is poor
--- NOTE | 2018-06-15 20:54 | CP.PCM.PN ---
Subjective - Date & Time of Evaluation Date of Evaluation: 06/14/18 Time of Evaluation: 21:00 - Subjective Subjective: patient more somnolent today. Just received morphine. Daughter, son-in-law, and at bedside ROS: unable to assess Objective - Vital Signs/Intake and Output Vital Signs (last 24 hours): Temp Pulse Resp BP Pulse Ox 98.2 F 104 H 20 100/76 100 06/15/18 14:00 06/15/18 14:00 06/15/18 20:40 06/15/18 14:00 06/15/18 14:00 Intake and Output: 06/15/18 06/16/18 18:59 06:59 Intake Total 240 Output Total 200 Balance 40 - Medications Medications: Current Medications Acetaminophen (Tylenol 650 Mg Supp) 650 mg RC Q6H PRN PRN Reason: Pain, Mild (1-3) Budesonide (Pulmicort Respules) 0.5 mg IH [id number] [facility] Last Admin: 06/15/18 20:37 Dose: 0.5 mg Famotidine (Pepcid) 40 mg PO [facility] Last Admin: 06/14/18 21:02 Dose: 40 mg Folic Acid (Folic Acid) 1 mg PO DAILY [facility] Last Admin: 06/15/18 11:48 Dose: 1 mg Levalbuterol HCl (Xopenex) 0.63 mg IH [id number] [facility] Last Admin: 06/15/18 20:37 Dose: 0.63 mg Levetiracetam (Keppra) 500 mg PO Q12 [facility] Last Admin: 06/15/18 11:56 Dose: 500 mg Memantine (Namenda) 10 mg PO [facility] Last Admin: 06/14/18 21:02 Dose: 10 mg Methylprednisolone (Solu-Medrol) 20 mg IVP BID [facility] Last Admin: 06/15/18 18:08 Dose: 20 mg Metoprolol Tartrate (Lopressor) 50 mg PO BID [facility] Last Admin: 06/15/18 18:08 Dose: 50 mg Morphine Sulfate (Morphine) 0.5 mg IM Q5H PRN PRN Reason: Pain, severe (8-10) Last Admin: 06/15/18 13:25 Dose: 0.5 mg Nystatin (Mycostatin Cream) 1 ea TOP TID [facility] Last Admin: 06/15/18 18:09 Dose: 1 applic Pantoprazole Sodium (Protonix Ec Tab) 40 mg PO DAILY [facility] Last Admin: 06/15/18 11:49 Dose: 40 mg Verapamil HCl (Verapamil Inj) 2.5 mg IVP Q6H PRN PRN Reason: for heart rate >120 Last Admin: 05/28/18 23:32 Dose: 2.5 mg Verapamil HCl (Calan Tab) 40 mg PO TID [facility] Last Admin: 06/15/18 18:14 Dose: 40 mg - Labs Labs: 06/10/18 06:20 06/13/18 06:00 PT 12.8 SECONDS (9.4-12.5) H 05/20/18 10:45 INR 1.11 (0.93-1.08) H 05/20/18 10:45 APTT 24.7 Seconds (25.1-36.5) L 05/20/18 10:45 - Constitutional Appears: Non-toxic - Respiratory Exam Respiratory Exam: Wheezes, NORMAL BREATHING PATTERN - Cardiovascular Exam Cardiovascular Exam: REGULAR RHYTHM, +S1, +S2. absent: Murmur - GI/Abdominal Exam GI & Abdominal Exam: Soft, Normal Bowel Sounds. absent: Tenderness - Extremities Exam Extremities Exam: Full ROM, Normal Capillary Refill, Normal Inspection. absent : Joint Swelling, Pedal Edema Assessment and Plan - Assessment and Plan (Free Text) Plan: Ms Camarena fiordaliza 63 y/o female with pmhx significant of stage IV NSCLC on palliative chemotherapy who is currently admitted with HCAP requiring broad spectrum antibiotics with hiflow NC and intermittent bipap. Patient originally slated to be transferred to LTAC, however, given oxygen requirements that would be prohibitive. For now will reduece nacrotics as much as tolerated (given that this causes patient to be somnolent which coud increase her O2 requirements ) and try to wean oxygen as much as possible. IF oxygen is not able to weaned off will need to evaluate goals of care. Spoke at length with daughter and regarding hospice parituclarly if the patient is unable to lower her oxygen requirements. Appreciated pulmonary and respiratory recommendations. Moody Carranza MD Oncology
--- NOTE | 2018-06-15 20:55 | CP.PCM.PN ---
Subjective - Date & Time of Evaluation Date of Evaluation: 06/15/18 Time of Evaluation: 18:00 - Subjective Subjective: Patient more alert today. REquired less pain medications. ROS: 12 ROS negative Objective - Vital Signs/Intake and Output Vital Signs (last 24 hours): Temp Pulse Resp BP Pulse Ox 98.2 F 104 H 20 100/76 100 06/15/18 14:00 06/15/18 14:00 06/15/18 20:40 06/15/18 14:00 06/15/18 14:00 Intake and Output: 06/15/18 06/16/18 18:59 06:59 Intake Total 240 Output Total 200 Balance 40 - Medications Medications: Current Medications Acetaminophen (Tylenol 650 Mg Supp) 650 mg RC Q6H PRN PRN Reason: Pain, Mild (1-3) Budesonide (Pulmicort Respules) 0.5 mg IH [id number] [facility] Last Admin: 06/15/18 20:37 Dose: 0.5 mg Famotidine (Pepcid) 40 mg PO HS [facility] Last Admin: 06/14/18 21:02 Dose: 40 mg Folic Acid (Folic Acid) 1 mg PO DAILY [facility] Last Admin: 06/15/18 11:48 Dose: 1 mg Levalbuterol HCl (Xopenex) 0.63 mg IH [id number] [facility] Last Admin: 06/15/18 20:37 Dose: 0.63 mg Levetiracetam (Keppra) 500 mg PO Q12 [facility] Last Admin: 06/15/18 11:56 Dose: 500 mg Memantine (Namenda) 10 mg PO HS [facility] Last Admin: 06/14/18 21:02 Dose: 10 mg Methylprednisolone (Solu-Medrol) 20 mg IVP BID [facility] Last Admin: 06/15/18 18:08 Dose: 20 mg Metoprolol Tartrate (Lopressor) 50 mg PO BID [facility] Last Admin: 06/15/18 18:08 Dose: 50 mg Morphine Sulfate (Morphine) 0.5 mg IM Q5H PRN PRN Reason: Pain, severe (8-10) Last Admin: 06/15/18 13:25 Dose: 0.5 mg Nystatin (Mycostatin Cream) 1 ea TOP TID [facility] Last Admin: 06/15/18 18:09 Dose: 1 applic Pantoprazole Sodium (Protonix Ec Tab) 40 mg PO DAILY [facility] Last Admin: 06/15/18 11:49 Dose: 40 mg Verapamil HCl (Verapamil Inj) 2.5 mg IVP Q6H PRN PRN Reason: for heart rate >120 Last Admin: 05/28/18 23:32 Dose: 2.5 mg Verapamil HCl (Calan Tab) 40 mg PO TID [facility] Last Admin: 06/15/18 18:14 Dose: 40 mg - Labs Labs: 06/10/18 06:20 06/13/18 06:00 PT 12.8 SECONDS (9.4-12.5) H 05/20/18 10:45 INR 1.11 (0.93-1.08) H 05/20/18 10:45 APTT 24.7 Seconds (25.1-36.5) L 05/20/18 10:45 - Constitutional Appears: Non-toxic - Head Exam Head Exam: ATRAUMATIC, NORMAL INSPECTION, NORMOCEPHALIC - Neck Exam Neck Exam: Full ROM - Respiratory Exam Respiratory Exam: Wheezes, NORMAL BREATHING PATTERN. absent: Accessory Muscle Use - Cardiovascular Exam Cardiovascular Exam: REGULAR RHYTHM, +S1, +S2. absent: Murmur - GI/Abdominal Exam GI & Abdominal Exam: Soft, Normal Bowel Sounds. absent: Tenderness - Extremities Exam Extremities Exam: Full ROM, Normal Capillary Refill, Normal Inspection. absent : Joint Swelling, Pedal Edema Assessment and Plan - Assessment and Plan (Free Text) Assessment: Ms Camarena fiordaliza 63 y/o female with pmhx significant of stage IV NSCLC on palliative chemotherapy who is currently admitted with HCAP requiring broad spectrum antibiotics with hiflow NC and intermittent bipap. Patient originally slated to be transferred to LTAC, however, given oxygen requirements that would be prohibitive. For now will reduece nacrotics as much as tolerated (given that this causes patient to be somnolent which coud increase her O2 requirements ) and try to wean oxygen as much as possible. IF oxygen is not able to weaned off will need to evaluate goals of care. Spoke at length with daughter and regarding hospice parituclarly if the patient is unable to lower her oxygen requirements. Appreciated pulmonary and respiratory recommendations. Moody Carranza MD Oncology
[2018-06-16] MEDS: Levalbuterol 0.63 MG/3 ML Inhal Soln UD IH SCH ×4 (01:30→20:04)
--- NOTE | 2018-06-16 05:07 | PN ---
DATE: 06/13/2018 SUBJECTIVE: Patient was seen and examined at the bedside on 06/13/2018. Looking comfortable. Still having high flow nasal cannula oxygen. More awake. No cough, no shortness of breath, no phlegm. No hematuria or hematochezia. PHYSICAL EXAMINATION: VITAL SIGNS: Temperature 97.4, pulse 85, blood pressure 97/72, respiratory rate 19. HEENT: Head normocephalic, atraumatic. Eyes PERRLA. Extraocular muscles intact. Conjunctive clear. Nose patent. Mucous membranes moist. NECK: Supple. No carotid bruits, JVD or thyromegaly. CHEST: Bilaterally symmetrical. HEART: S1 and S2, positive. LUNGS: Few rhonchi, crackles at the bases. ABDOMEN: Soft, nontender, no organomegaly. EXTREMITIES: No edema, no cyanosis. NEUROLOGIC: Patient awake, alert, follows simple commands. LABORATORY DATA: Sodium 143, potassium 3.4, BUN 32, creatinine 0.7, glucose 107. AST 35, ALT 34. MEDICATIONS: Morphine 2 mg IV push every 5 hours as needed. Reviewed all other medications. ASSESSMENT AND PLAN: Ms. Nicol Brannon is a 63-year-old lady with respiratory failure on high flow nasal cannula oxygenation and pulmonary edema, chronic obstructive lung disease, cardiac diastolic dysfunction, hypertension, history of lung cancer with metastasis to the bones and brain, requiring craniotomy, got chemotherapy. Now patient is DNR. Still getting high flow oxygen. Gastrointestinal and deep venous thrombosis prophylaxis. Length of time discussion done with the family. Repeat labs. Will follow up. Yaneth Darby MD
[2018-06-16] MEDS: Budesonide 0.5 mg/2 ml Inhal Susp UD IH SCH ×2 (07:23→20:04)
--- NOTE | 2018-06-16 07:28 | CP.PCM.PN ---
Subjective - Date & Time of Evaluation Date of Evaluation: 06/16/18 Time of Evaluation: 07:00 - Subjective Subjective: Chris Browning DO, PGY-2: Hematology Oncology Progress Note for Dr. Carranza Patient seen and examined at bedside. Patient is resting comfortably in bed, much more awake, alert, and conversive today. She denies any fever, chills, nausea, vomiting, cough, or pain. She reports having a fair appetite. Chart review indicates no adverse events overnight. Objective - Vital Signs/Intake and Output Vital Signs (last 24 hours): Temp Pulse Resp BP Pulse Ox 97.8 F 88 18 117/68 100 06/15/18 21:33 06/15/18 21:33 06/15/18 21:33 06/15/18 21:33 06/15/18 21:33 - Medications Medications: Current Medications Acetaminophen (Tylenol 650 Mg Supp) 650 mg RC Q6H PRN PRN Reason: Pain, Mild (1-3) Budesonide (Pulmicort Respules) 0.5 mg IH [id number] [facility] Last Admin: 06/16/18 07:23 Dose: 0.5 mg Famotidine (Pepcid) 40 mg PO HS [facility] Last Admin: 06/15/18 21:06 Dose: Not Given Folic Acid (Folic Acid) 1 mg PO DAILY [facility] Last Admin: 06/15/18 11:48 Dose: 1 mg Levalbuterol HCl (Xopenex) 0.63 mg IH [id number] [facility] Last Admin: 06/16/18 07:23 Dose: 0.63 mg Levetiracetam (Keppra) 500 mg PO Q12 [facility] Last Admin: 06/15/18 21:06 Dose: Not Given Memantine (Namenda) 10 mg PO HS [facility] Last Admin: 06/15/18 21:06 Dose: Not Given Methylprednisolone (Solu-Medrol) 20 mg IVP BID [facility] Last Admin: 06/15/18 18:08 Dose: 20 mg Metoprolol Tartrate (Lopressor) 50 mg PO BID [facility] Last Admin: 06/15/18 18:08 Dose: 50 mg Morphine Sulfate (Morphine) 0.5 mg IM Q5H PRN PRN Reason: Pain, severe (8-10) Last Admin: 06/15/18 13:25 Dose: 0.5 mg Nystatin (Mycostatin Cream) 1 ea TOP TID [facility] Last Admin: 06/15/18 18:09 Dose: 1 applic Pantoprazole Sodium (Protonix Ec Tab) 40 mg PO DAILY [facility] Last Admin: 06/15/18 11:49 Dose: 40 mg Verapamil HCl (Verapamil Inj) 2.5 mg IVP Q6H PRN PRN Reason: for heart rate >120 Last Admin: 05/28/18 23:32 Dose: 2.5 mg Verapamil HCl (Calan Tab) 40 mg PO TID [facility] Last Admin: 06/15/18 18:14 Dose: 40 mg - Labs Labs: 06/10/18 06:20 06/13/18 06:00 PT 12.8 SECONDS (9.4-12.5) H 05/20/18 10:45 INR 1.11 (0.93-1.08) H 05/20/18 10:45 APTT 24.7 Seconds (25.1-36.5) L 05/20/18 10:45 - Constitutional Appears: Non-toxic, No Acute Distress - Head Exam Head Exam: ATRAUMATIC, NORMOCEPHALIC - Eye Exam Eye Exam: EOMI, Normal appearance - ENT Exam ENT Exam: Mucous Membranes Dry Additional comments: oral thrush noted - Respiratory Exam Respiratory Exam: Clear to Ausculation Bilateral, NORMAL BREATHING PATTERN. absent: Accessory Muscle Use - Cardiovascular Exam Cardiovascular Exam: RRR, +S1, +S2 - GI/Abdominal Exam GI & Abdominal Exam: Soft, Normal Bowel Sounds - Extremities Exam Extremities Exam: Normal Inspection. 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 CT/MRI of the head were negative. Patient was was found to have multifocal infiltrates consistent with healthcare-associated pneumonia and sepsis requiring ICU admission. Patient started on broad-spectrum antibiotic, stress dose steroids, and Keppra for seizure prophylaxis, high flow oxygen with humidified FiO2. Patient clinical status has improved. PPatient has no signs of active bleeding. Patient is DNR and DNI. Palliative care consult appreciated. Current plan is to gradually wean the patient off high flow oxygen such that she can be accepted to a LTAC facility. We recommend weaning her opiod regiment as this can increase the patients oxygen requirements. Nystatin swish and swallow added for patient's oral thrush. Appreciate pulmonary and respiratory recommendations. Case was reviewed and discussed at length with attending physician, Dr. Carranza
--- NOTE | 2018-06-16 08:42 | PN ---
DATE: 06/15/2018 SUBJECTIVE: The patient is seen and examined at bedside, looking comfortable. No nausea, vomiting, diarrhea. No hematuria, no hematochezia. A little bit lethargic, still having on a high-flow oxygen. No fever overnight. PHYSICAL EXAMINATION: VITAL SIGNS: Temperature 97.8, pulse 122, respiratory rate 20, blood pressure 95/70, pulse oximetry 96. HEENT: Head normocephalic, atraumatic. Eyes, PERRLA. Extraocular movements intact. Conjunctivae clear. Nose patent. Mucous membrane moist. NECK: Supple. No carotid bruit, JVD or thyromegaly. CHEST: Bilaterally symmetrical. HEART: S1 and S2 positive. LUNGS: Wheezing bilaterally. ABDOMEN: Soft. Bowel sounds present, no organomegaly. EXTREMITIES: Trace edema, no cyanosis. NEUROLOGIC: The patient is awake, but lethargic. MEDICATIONS: Tylenol, Pulmicort, Pepcid, folic acid, Xopenex, Keppra, Namenda, Lopressor, morphine, Mycostatin cream, Protonix, verapamil. LABORATORY DATA: White blood cell is 5.4, hemoglobin 10.6, hematocrit 31.8, platelets noted . Sodium 143, potassium 3.4, BUN 32, creatinine 0.7, glucose 107. ASSESSMENT AND PLAN: Ms. Nicol Brannon is a 63-year-old female with anemia, thrombocytopenia, hypokalemia, sepsis due to healthcare associate pneumonia, non-small cell lung cancer stage IV, with bone metastasis, on chemotherapy. and antibiotics. Since she has a risk of nosocomial infection, overall prognosis is poor. History of hypertension. Seen by Dr. Kilo Escudero, Infectious Disease, and Dr. Carranza, oncologist. We had decreased the dose of morphine that is why patient is a little bit more awake. Status post chemotherapy. Has healthcare associate pneumonia requiring broad-spectrum antibiotics with high-flow oxygen with nasal cannula, and intermittent BiPAP. Plan was to transfer the patient to LTAC. Given oxygen requirement, that would be prohibitive. Now we are decreasing her morphine, so the patient may tolerate BiPAP discharge planning. Length of time discussion done. Repeat labs. We will follow up. Yaneth Darby MD [facility] # [id number]
[2018-06-16] MEDS: Morphine 2 mg/ml ISec IM PRN (08:52)
[2018-06-16] MEDS: MethylPREDNISolone 40 mg Vial IVP SCH ×2 (09:44→17:43)
[2018-06-16] MEDS: Pantoprazole 40 mg EC Tab PO SCH (09:46)
[2018-06-16] MEDS: Nystatin 100,000 Units/ml Oral Susp 5 ml UD PO SCH ×4 (09:46→21:02)
[2018-06-16] MEDS: Nystatin 100,000 Units/gm Cream(15 gm) TOP SCH ×3 (09:49→17:45)
[2018-06-16] MEDS: Oxycodone/Acetaminophen 5/325 mg Tab PO PRN ×2 (12:43→21:02)
--- NOTE | 2018-06-16 15:42 | CP.PCM.PN ---
Subjective - Date & Time of Evaluation Date of Evaluation: 06/16/18 Time of Evaluation: 13:30 - Subjective Subjective: Continues to be on high flow oxygen, no fevers. Objective - Vital Signs/Intake and Output Vital Signs (last 24 hours): Temp Pulse Resp BP Pulse Ox 98.1 F 60 21 90/55 L 97 06/16/18 06:00 06/16/18 09:39 06/16/18 07:29 06/16/18 09:39 06/16/18 06:00 - Medications Medications: Current Medications Acetaminophen (Tylenol 650 Mg Supp) 650 mg RC Q6H PRN PRN Reason: Pain, Mild (1-3) Budesonide (Pulmicort Respules) 0.5 mg IH [id number] [facility] Last Admin: 06/16/18 07:23 Dose: 0.5 mg Famotidine (Pepcid) 40 mg PO [facility] Last Admin: 06/15/18 21:06 Dose: Not Given Folic Acid (Folic Acid) 1 mg PO DAILY [facility] Last Admin: 06/16/18 09:46 Dose: 1 mg Levalbuterol HCl (Xopenex) 0.63 mg IH [id number] [facility] Last Admin: 06/16/18 07:23 Dose: 0.63 mg Levetiracetam (Keppra) 500 mg PO Q12 [facility] Last Admin: 06/16/18 09:46 Dose: 500 mg Memantine (Namenda) 10 mg PO [facility] Last Admin: 06/15/18 21:06 Dose: Not Given Methylprednisolone (Solu-Medrol) 20 mg IVP BID [facility] Last Admin: 06/16/18 09:44 Dose: 20 mg Metoprolol Tartrate (Lopressor) 50 mg PO BID [facility] Last Admin: 06/16/18 09:39 Dose: Not Given Morphine Sulfate (Morphine) 0.5 mg IM Q5H PRN PRN Reason: Pain, severe (8-10) Last Admin: 06/16/18 08:52 Dose: 0.5 mg Nystatin (Mycostatin Cream) 1 ea TOP TID [facility] Last Admin: 06/16/18 09:49 Dose: 1 applic Nystatin (Nystatin Oral Susp) 5 ml PO QID [facility] Last Admin: 06/16/18 09:46 Dose: 5 ml Oxycodone/Acetaminophen (Percocet 5/325 Mg Tab) 1 tab PO Q6H PRN PRN Reason: Pain, moderate (4-7) Stop: 06/19/18 10:26 Pantoprazole Sodium (Protonix Ec Tab) 40 mg PO DAILY [facility] Last Admin: 06/16/18 09:46 Dose: 40 mg Verapamil HCl (Verapamil Inj) 2.5 mg IVP Q6H PRN PRN Reason: for heart rate >120 Last Admin: 05/28/18 23:32 Dose: 2.5 mg Verapamil HCl (Calan Tab) 40 mg PO TID [facility] Last Admin: 06/16/18 09:39 Dose: Not Given - Labs Labs: 06/10/18 06:20 06/13/18 06:00 PT 12.8 SECONDS (9.4-12.5) H 05/20/18 10:45 INR 1.11 (0.93-1.08) H 05/20/18 10:45 APTT 24.7 Seconds (25.1-36.5) L 05/20/18 10:45 - Constitutional Appears: Chronically Ill - Head Exam Head Exam: NORMAL INSPECTION - Respiratory Exam Respiratory Exam: Decreased Breath Sounds - Cardiovascular Exam Cardiovascular Exam: +S1, +S2 - GI/Abdominal Exam GI & Abdominal Exam: Soft. absent: Tenderness Assessment and Plan - Assessment and Plan (Free Text) Plan: Assessment S/P severe sepsis due to HCAP non-small cell lung cancer stage 4 with bone metastases on chemotherapy Plan continue to monitor clinically off antibiotics since she is at risk for hospital -acquired infections overall prognosis is poor
[2018-06-16] MEDS: Morphine 2 mg/2 mL syringe IM PRN (17:47)
--- NOTE | 2018-06-16 19:29 | PN ---
DATE: 06/16/2018 PULMONARY PROGRESS NOTE REFERRING PHYSICIAN: Yaneth Darby MD. SUBJECTIVE: The patient is lying in the bed, sleepy, arousable, on high-flow reservoir mask. Night was unremarkable. According to nursing, has a lot of extremity pain requiring morphine. There is no hemoptysis. No hematemesis. No hematuria. No diarrhea reported. OBJECTIVE: GENERAL: In no acute distress. VITAL SIGNS: Temperature is 98, heart rate is , respiratory rate is 20, blood pressure 98/60, pulse ox 96% on nonrebreather mask. HEENT: Moist mucous membrane. Crowded airway. NECK: Supple. No JVD. LUNGS: Have a poor airflow with scattered rhonchi and crackles. HEART: S1 and S2. ABDOMEN: Soft, nontender. No organomegaly. EXTREMITIES: There is not much edema. NEUROLOGICAL: Sleepy, arousable. Follows simple command. MEDICATIONS: She is on Calan 40 mg three times a day, folic acid 1 mg daily, Keppra 500 mg twice a day, metoprolol tartrate 50 mg twice a day, morphine 0.5 mg IM every 5 hours p.r.n., Namenda 10 mg at bedtime, nystatin oral suspension four times a day, Pepcid 40 mg at bedtime, Percocet 5/325 one tab every 6 hours p.r.n., Protonix 40 mg daily, Pulmicort inhaled twice a day, Solu-Medrol 20 mg twice a day, Tylenol p.r.n. basis, verapamil 2.5 mg every 6 hours p.r.n., Xopenex 0.63 every 6 hours. LABORATORY DATA: Reviewed. No new lab is available. IMPRESSION AND PLAN: Respiratory failure, on nonrebreather mask; pulmonary edema; chronic lung disease; cardiac diastolic dysfunction; hypertension; lung cancer with metastatic disease to bone and brain requiring craniotomy in the past. She is DNR and DNI. Spoke to nursing staff. Over the weekend, I have conversation with the patient's daughter. Overall, very poor prognosis. Continue comfort care, supplement oxygen, pain management. Thank you and we will follow with you. Mohammad Estela, MD [facility] # [id number]
[2018-06-16] MEDS ORDERED: Morphine 2 mg/ml ISec IVP STA (21:19)
[2018-06-17] MEDS: Levalbuterol 0.63 MG/3 ML Inhal Soln UD IH SCH ×4 (02:40→20:07)
--- NOTE | 2018-06-17 06:43 | CP.PCM.PN ---
Subjective - Date & Time of Evaluation Date of Evaluation: 06/17/18 Time of Evaluation: 06:20 - Subjective Subjective: Chris Browning DO, Internal Medicine Resident PGY-2: Hematology/Oncology Progress Note for Dr. Carranza Patient seen and examine at bedside. Nurse overnight reports patient took of high flow oxygen when she was in pain and screaming for help and subsequently desaturated. Night resident was made aware, came and evaluated patient, ordered for an IV dose of Morphine that relieved the patients pain and permitted her to put back on her oxygen mask. Important to note, patient has non-small cell lung cancer with metastasis to bone in the setting of becoming a recent DNR/DNI. Patient is being weaned off pain medication in effort to reduce her oxygen requirements such that she can be transferred to a LTAC facility. At the time of examination, patient is resting comfortably in bed, in no acute distress. Patient is sleepy, arousable, but would not follow commands this morning. Objective - Vital Signs/Intake and Output Vital Signs (last 24 hours): Temp Pulse Resp BP Pulse Ox 97.9 F 138 H 20 102/73 99 06/16/18 21:52 06/16/18 21:52 06/17/18 02:42 06/16/18 21:52 06/16/18 21:52 Intake and Output: 06/16/18 06/17/18 18:59 06:59 Intake Total 240 Output Total 500 Balance -260 - Medications Medications: Current Medications Acetaminophen (Tylenol 650 Mg Supp) 650 mg RC Q6H PRN PRN Reason: Pain, Mild (1-3) Budesonide (Pulmicort Respules) 0.5 mg IH [id number] [facility] Last Admin: 06/16/18 20:04 Dose: 0.5 mg Famotidine (Pepcid) 40 mg PO HS [facility] Last Admin: 06/16/18 21:02 Dose: 40 mg Folic Acid (Folic Acid) 1 mg PO DAILY [facility] Last Admin: 06/16/18 09:46 Dose: 1 mg Levalbuterol HCl (Xopenex) 0.63 mg IH [id number] [facility] Last Admin: 06/17/18 02:40 Dose: 0.63 mg Levetiracetam (Keppra) 500 mg PO Q12 [facility] Last Admin: 07/16/18 21:02 Dose: 500 mg Memantine (Namenda) 10 mg PO HS [facility] Last Admin: 06/16/18 21:02 Dose: 10 mg Methylprednisolone (Solu-Medrol) 20 mg IVP BID [facility] Last Admin: 06/16/18 17:43 Dose: 20 mg Metoprolol Tartrate (Lopressor) 50 mg PO BID [facility] Last Admin: 06/16/18 17:45 Dose: Not Given Morphine Sulfate (Morphine) 0.5 mg IM Q5H PRN PRN Reason: Pain, severe (8-10) Last Admin: 06/16/18 17:47 Dose: 0.5 mg Nystatin (Mycostatin Cream) 1 ea TOP TID [facility] Last Admin: 06/16/18 17:45 Dose: 1 applic Nystatin (Nystatin Oral Susp) 5 ml PO QID [facility] Last Admin: 06/16/18 21:02 Dose: 5 ml Oxycodone/Acetaminophen (Percocet 5/325 Mg Tab) 1 tab PO Q6H PRN PRN Reason: Pain, moderate (4-7) Stop: 06/19/18 10:26 Last Admin: 06/16/18 21:02 Dose: 1 tab Pantoprazole Sodium (Protonix Ec Tab) 40 mg PO DAILY [facility] Last Admin: 06/16/18 09:46 Dose: 40 mg Verapamil HCl (Verapamil Inj) 2.5 mg IVP Q6H PRN PRN Reason: for heart rate >120 Last Admin: 05/28/18 23:32 Dose: 2.5 mg Verapamil HCl (Calan Tab) 40 mg PO TID [facility] Last Admin: 06/16/18 17:44 Dose: 40 mg - Labs Labs: 06/10/18 06:20 06/13/18 06:00 PT 12.8 SECONDS (9.4-12.5) H 05/20/18 10:45 INR 1.11 (0.93-1.08) H 05/20/18 10:45 APTT 24.7 Seconds (25.1-36.5) L 05/20/18 10:45 - Constitutional Appears: Well, No Acute Distress - Head Exam Head Exam: ATRAUMATIC, NORMOCEPHALIC Additional comments: craniotomy scar well healed, rai facies - Eye Exam Eye Exam: EOMI, Normal appearance - ENT Exam Additional comments: patient refused or did not open mouth for examination - Neck Exam Neck Exam: Normal Inspection - Respiratory Exam Respiratory Exam: Clear to Ausculation Bilateral, NORMAL BREATHING PATTERN. absent: Accessory Muscle Use - Cardiovascular Exam Cardiovascular Exam: Tachycardia, +S1, +S2 - GI/Abdominal Exam GI & Abdominal Exam: Soft, Normal Bowel Sounds - Extremities Exam Extremities Exam: Normal Inspection. 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 CT/MRI of the head were negative. Patient was was found to have multifocal infiltrates consistent with healthcare-associated pneumonia and sepsis requiring ICU admission. Patient was started on broad-spectrum antibiotic, stress-dosed steroids, and Keppra for seizure prophylaxis, high flow oxygen with humidified FiO2. Patient clinical status has improved and she is no longer requiring antibiotics or stress dose steroids. Patient is DNR and DNI. Palliative care consult appreciated. Current plan is to gradually wean the patient off high flow oxygen such that she can be accepted to a LTAC facility. We recommend weaning her opiod regiment as this can increase the patients oxygen requirements. Nystatin swish and swallow added for patient's oral thrush. Appreciate pulmonary, infectious disease, and respiratory recommendations. We will continue to follow while the patient is in- house. Case was reviewed and discussed at length with attending physician, Dr. Carranza
[2018-06-17] MEDS: Budesonide 0.5 mg/2 ml Inhal Susp UD IH SCH ×2 (07:27→20:07)
--- NOTE | 2018-06-17 08:41 | PN ---
DATE: 06/16/2018 SUBJECTIVE: The patient was seen and examined on the bedside on 06/16/2018. Sleepy, arousable, on high-flow oxygenation mask. Night was unremarkable. No change in the status. We tried to decrease the patient's morphine, but the patient was in pain as per nursing staff. The patient is a poor historian. No fever. No chills. No hematuria. No hematochezia. PHYSICAL EXAMINATION: VITAL SIGNS: Temperature 98, heart rate 80, respiratory rate 18, blood pressure 110/60, pulse oximetry 97% on nonrebreathable mask. HEENT: Head normocephalic, atraumatic. Eyes PERRLA. Extraocular muscles intact. Conjunctivae clear. Nose patent. Mucous membrane moist. NECK: Supple. No carotid bruit. No JVD or thyromegaly. CHEST: Bilaterally symmetrical. HEART: S1 and S2 positive. LUNGS: Have poor airflow with scattered rhonchi and crackles. ABDOMEN: Soft, nontender. No organomegaly. EXTREMITIES: Trace edema. NEUROLOGICAL: The patient is sleepy, arousable, but still follows simple commands. MEDICATIONS: Calan, folic acid, Keppra, metoprolol, morphine, Namenda, nystatin, Pepcid, Percocet, Protonix, Pulmicort, Solu-Medrol, Tylenol, verapamil, Xopenex. LABORATORY DATA: We do not have recent labs today, but I reviewed old labs. ASSESSMENT AND PLAN: Ms. Nicol Brannon, 63-year-old female with multiple medical problems, especially now respiratory failure, on nonrebreathable mask high-flow oxygen; pulmonary edema; chronic obstructive pulmonary disease; cardiac diastolic dysfunction; hypertension; lung cancer with metastatic disease to the bone and brain requiring craniotomy in the past with status post chemotherapy, radiotherapy. The patient is DNR and DNI now. Length of time discussion done with nursing staff. Even multiple times discussion done with the patient's daughter. Overall prognosis is very poor. Continue comfort care, oxygenation, pain management. Gastrointestinal, deep venous thrombosis prophylaxis. Repeat labs. We will follow up. Yaneth Darby MD
[2018-06-17] MEDS: Morphine 2 mg/2 mL syringe IM PRN (09:55)
[2018-06-17] MEDS: MethylPREDNISolone 40 mg Vial IVP SCH ×2 (10:15→18:09)
[2018-06-17] MEDS: Nystatin 100,000 Units/ml Oral Susp 5 ml UD PO SCH ×4 (10:16→21:09)
[2018-06-17] MEDS: Pantoprazole 40 mg EC Tab PO SCH (10:16)
[2018-06-17] MEDS: Nystatin 100,000 Units/gm Cream(15 gm) TOP SCH (10:17)
[2018-06-17] MEDS: POLYETHYLENE GLYCOL 3350 17 GM/Dose PACKET PO SCH ×2 (13:33→18:05)
[2018-06-17] MEDS: Oxycodone/Acetaminophen 5/325 mg Tab PO PRN ×2 (13:36→21:07)
--- NOTE | 2018-06-17 15:22 | CP.PCM.PN ---
Subjective - Date & Time of Evaluation Date of Evaluation: 06/16/18 Time of Evaluation: 14:00 - Subjective Subjective: Alert, complains of pain when repositioned> Objective - Vital Signs/Intake and Output Vital Signs (last 24 hours): Temp Pulse Resp BP Pulse Ox 98.6 F 95 H 20 98/60 L 100 06/17/18 06:00 06/17/18 13:33 06/17/18 13:19 06/17/18 13:33 06/17/18 06:00 Intake and Output: 06/17/18 06/17/18 06:59 18:59 Intake Total 240 240 Output Total 500 Balance -260 240 - Medications Medications: Current Medications Acetaminophen (Tylenol 650 Mg Supp) 650 mg RC Q6H PRN PRN Reason: Pain, Mild (1-3) Budesonide (Pulmicort Respules) 0.5 mg IH [id number] [facility] Last Admin: 06/17/18 07:27 Dose: 0.5 mg Famotidine (Pepcid) 40 mg PO HS [facility] Last Admin: 06/16/18 21:02 Dose: 40 mg Folic Acid (Folic Acid) 1 mg PO DAILY [facility] Last Admin: 06/17/18 10:16 Dose: 1 mg Levalbuterol HCl (Xopenex) 0.63 mg IH [id number] [facility] Last Admin: 06/17/18 13:18 Dose: 0.63 mg Levetiracetam (Keppra) 500 mg PO Q12 [facility] Last Admin: 06/17/18 10:16 Dose: 500 mg Memantine (Namenda) 10 mg PO HS [facility] Last Admin: 06/16/18 21:02 Dose: 10 mg Methylprednisolone (Solu-Medrol) 20 mg IVP BID [facility] Last Admin: 06/17/18 10:15 Dose: 20 mg Metoprolol Tartrate (Lopressor) 50 mg PO BID [facility] Last Admin: 06/17/18 10:16 Dose: 50 mg Morphine Sulfate (Morphine) 0.5 mg IM Q5H PRN PRN Reason: Pain, severe (8-10) Last Admin: 06/17/18 09:55 Dose: 0.5 mg Nystatin (Nystatin Oral Susp) 5 ml PO QID [facility] Last Admin: 06/17/18 10:16 Dose: 5 ml Oxycodone/Acetaminophen (Percocet 5/325 Mg Tab) 1 tab PO Q6H PRN PRN Reason: Pain, moderate (4-7) Stop: 06/19/18 10:26 Last Admin: 06/17/18 13:36 Dose: 1 tab Pantoprazole Sodium (Protonix Ec Tab) 40 mg PO DAILY [facility] Last Admin: 06/17/18 10:16 Dose: 40 mg Polyethylene Glycol (Miralax) 17 gm PO BID [facility] Last Admin: 06/17/18 13:33 Dose: Not Given Verapamil HCl (Verapamil Inj) 2.5 mg IVP Q6H PRN PRN Reason: for heart rate >120 Last Admin: 05/28/18 23:32 Dose: 2.5 mg Verapamil HCl (Calan Tab) 40 mg PO TID [facility] Last Admin: 06/17/18 13:33 Dose: 40 mg - Labs Labs: 06/10/18 06:20 06/13/18 06:00 PT 12.8 SECONDS (9.4-12.5) H 05/20/18 10:45 INR 1.11 (0.93-1.08) H 05/20/18 10:45 APTT 24.7 Seconds (25.1-36.5) L 05/20/18 10:45 - Constitutional Appears: Chronically Ill - Head Exam Head Exam: NORMOCEPHALIC - Eye Exam Eye Exam: Normal appearance, PERRL - ENT Exam ENT Exam: Mucous Membranes Moist - Respiratory Exam Respiratory Exam: Decreased Breath Sounds, Wheezes - Cardiovascular Exam Cardiovascular Exam: REGULAR RHYTHM, +S1, +S2 - GI/Abdominal Exam GI & Abdominal Exam: Soft, Normal Bowel Sounds - Extremities Exam Extremities Exam: Normal Capillary Refill, Normal Inspection - Back Exam Back Exam: NORMAL INSPECTION - Neurological Exam Neurological Exam: Alert - Skin Skin Exam: Dry, Pallor Assessment and Plan - Assessment and Plan (Free Text) Assessment: 63 year old female with hsty of CPPD, lung cancer mets to brain, s/p craniotomy , HTN who was admitted with sepsis,pneumonia, respiratory insufficiency Transfer to LTAC scheduled for today. Respiratory therapist attempt to transition from high flow 02 to venti mask & nasal cannula in preparation for transfer. Patient became anxious and 02 sat decreased.Transfer on hold. Percocet given for pain. Hypotensive would hold Lopressor Later in the day I spoke with patient's daughter Haley regarding goals of care. Daughter reiterated that she is not interested in hospice care at this time. She prefers that her mother be transferred to LTAC as planned. Daughter is aware that due to mothers respiratory status and high flow oxygen use, transfer is on hold. Explained that medical team is working towards this goal. Time spent in with daughter goals of care discussion, 30 minutes Plan: Pain: Percocet every 6 hours as needed Anxiety; Would add Xanax 0.25mg prn Pulmonary: Shakeel Evans, weaning trials with BiPAP Hypotension: Would hold Lopressor Goals of care
--- NOTE | 2018-06-18 01:58 | PN ---
DATE: 06/17/2018 SUBJECTIVE: The patient was seen earlier today this morning in 577, bed 1. The patient had an uneventful night last night. No fevers. No chills. PHYSICAL EXAMINATION: VITAL SIGNS: Temperature is 98, blood pressure is 100/60, respiratory rate of 18. HEENT: Unremarkable. NECK: Supple. LUNGS: Have decreased breath sounds. HEART: Normal S1 and S2. ABDOMEN: Soft and nontender. LABORATORY DATA: Noted. White count is 5.4. Review of orders reveals the patient to be off of antibiotics. ASSESSMENT AND PLAN: A 63-year-old female status post severe sepsis due to healthcare-associated pneumonia, non-small cell lung cancer with brain metastasis and bone metastasis, on chemotherapy. Currently, off of antibiotics, afebrile. However, the patient is at risk for developing nosocomial infections. The patient had metastasis to brain and brain, had a craniotomy with tumor resection, had been on chemotherapy in the past. Overall, prognosis is poor for this end-stage patient. Serge Kruse MD
[2018-06-18] MEDS: Levalbuterol 0.63 MG/3 ML Inhal Soln UD IH SCH ×3 (02:07→13:29)
--- NOTE | 2018-06-18 04:29 | PN ---
DATE: 06/17/2018 SUBJECTIVE: The patient is a 63-year-old female. The patient is seen and examined at the bedside. No change in the status. Nurse overnight reports the patient took off high-flow oxygen when she was in pain and was screaming for help and subsequently desaturated. Night resident was made aware, came and evaluated the patient, ordered for an IV dose of morphine that relieved the patient's pain and permitted her to put back on her oxygen mask. The patient is DNR and DNI. The patient weaned off from medication, off morphine to reduce her oxygen requirements such that she can be transferred to LTAC facility. At the time of examination, the patient was comfortable. No pain. No nausea, vomiting, or diarrhea. Discussion done with the patient's nurse and the patient is still getting pain medication. Family is aware of that. PHYSICAL EXAMINATION: VITAL SIGNS: Temperature 97.9, pulse 138, respiratory rate 20, blood pressure 102/73, pulse oximetry of 99. HEENT: Head: Normocephalic, atraumatic. Eyes: PERRLA. Extraocular muscles intact. Conjunctivae clear. Nose patent. Mucous membrane moist. NECK: Supple. No carotid bruit. No JVD or thyromegaly. CHEST: Bilaterally symmetrical. HEART: S1 and S2 positive. LUNGS: Clear to auscultation. ABDOMEN: Soft. Bowel sounds positive. No organomegaly. EXTREMITIES: Trace edema. NEUROLOGICAL: The patient is sleepy, arousable, follows simple commands. MEDICATIONS: Tylenol, Pulmicort, Pepcid, folic acid, Xanax, Keppra, Namenda, Solu-Medrol, Lopressor, morphine, Mycostatin, nystatin, Percocet, Protonix, verapamil, and Calan. LABORATORY DATA: White blood cells 5.4, hemoglobin 10.6, hematocrit 31.8, platelets 39. Sodium 143, potassium 3.4, BUN 32, creatinine 0.7, glucose 107. ASSESSMENT AND PLAN: Ms. 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 multifactorial infiltrates consistent with healthcare-associated pneumonia and sepsis requiring Intensive Care Unit admission. The patient was started on broad-spectrum antibiotics, stat doses of steroid, Keppra for seizure prophylaxis, high-flow oxygen with humidified FiO2. The patient's clinical status has improved, but she is no longer requiring antibiotics or stress dose of steroids, but the patient is on prednisone. The patient is do not resuscitate and do not intubate. Now, family is working on to make the patient palliative care. Social Workers working to send the patient to long-term acute care facility. Long-term acute care will take if the patient is off high-flow oxygen. Trying to weaning off opiates, so we can increase the patient's oxygenation requirements. Nystatin swish and swallow is added for the patient's oral thrush. Gastric and deep venous thrombosis prophylaxis given. We will repeat labs. Case discussed with the patient's nursing staff. We will follow up. This is a progress note for 06/17/2018. The patient was seen and examined on the bedside on 06/17/2018 and late evening. Yaneth Darby MD MTDD
--- NOTE | 2018-06-18 05:22 | PN ---
DATE: 06/17/2018 PULMONARY PROGRESS NOTE REFERRING PHYSICIAN: Yaneth Darby MD SUBJECTIVE: The patient is lying in the bed on high-flow oxygen. Does not tolerate BiPaP, claustrophobic, gets nervous; on high-flow oxygen, she seems stable, much more awake and alert, had some food to eat today. According to nursing staff, she has pain in all over the body. It hurts whenever touches. No chest pain. No vomiting, no hematuria, no diarrhea reported. OBJECTIVE: GENERAL: No acute distress. VITAL SIGNS: Temperature is 98, heart rate 96, respiratory rate is 20, blood pressure 99/68, pulse ox 92% on 70% oxygen on high-flow nasal cannula. HEENT: Moist mucous membranes. No ulcer or thrush noted. NECK: Supple. No JVD. LUNGS: Have a few crackles, scattered rhonchi. HEART: S1 and S2. ABDOMEN: Soft, nontender, no organomegaly. EXTREMITIES: No edema. NEUROLOGIC: Awake and alert. Does follows simple command. MEDICATIONS: She is on verapamil 40 mg three times a day, folic acid 1 mg daily, Keppra 500 mg twice a day, metoprolol tartrate 50 mg twice a day, MiraLax daily, morphine 0.5 mg IM every 5 hours p.r.n., Namenda 10 mg daily, Nystatin 5 mL four times a day, Pepcid 40 mg daily, Percocet one tablet every 6 hours p.r.n., Protonix 40 mg daily, Pulmicort inhaled twice a day, Solu-Medrol 20 mg twice a day, Tylenol p.r.n., also verapamil 2.5 mg every 6 hours p.r.n. by mouth, Xopenex 0.63 every 6 hours. LABORATORY DATA: Reviewed. No new lab is available since yesterday. IMPRESSION AND PLAN: Respiratory failure, on high-flow nasal cannula, chronic lung disease, cardiac diastolic dysfunction, hypertension, lung cancer, metastatic disease to brain and bones, history of craniectomy, DNR and DNI. We will continue beta-glenroy, control the heart rate, minimize calcium channel glenroy, continue high-flow oxygen for now, continue steroids, pain management. Overall, poor prognosis. Also spoke to palliative care. Spoke to nursing staff. Thank you and we will follow with you. Chica Palmer MD
--- NOTE | 2018-06-18 06:55 | CP.PCM.PN ---
Subjective - Date & Time of Evaluation Date of Evaluation: 06/18/18 Time of Evaluation: 06:45 - Subjective Subjective: Valente Robins DO, IM Resident PGY-1 Hematology/Oncology Progress Note for Dr. Carranza Patient seen and examined at bedside. She is responsive to voice but drowsy and did not answer questions. Per RN, her SpO2 is maintained around 95% on high flow O2. When they attempted to wean her last night she dropped to the 80s. She had an episode of pain and agitation last night around 1999 and was subsequently given percocet and she's been resting quietly since then. Objective - Vital Signs/Intake and Output Vital Signs (last 24 hours): Temp Pulse Resp BP Pulse Ox 98.3 F 96 H 22 99/68 L 92 L 06/17/18 23:03 06/17/18 23:03 06/18/18 05:00 06/17/18 23:03 06/17/18 23:03 Intake and Output: 06/17/18 06/18/18 18:59 06:59 Intake Total 240 240 Balance 240 240 - Medications Medications: Current Medications Acetaminophen (Tylenol 650 Mg Supp) 650 mg RC Q6H PRN PRN Reason: Pain, Mild (1-3) Budesonide (Pulmicort Respules) 0.5 mg IH [id number] [facility] Last Admin: 06/17/18 20:07 Dose: 0.5 mg Famotidine (Pepcid) 40 mg PO HS [facility] Last Admin: 06/17/18 21:07 Dose: 40 mg Folic Acid (Folic Acid) 1 mg PO DAILY [facility] Last Admin: 06/17/18 10:16 Dose: 1 mg Levalbuterol HCl (Xopenex) 0.63 mg IH [id number] [facility] Last Admin: 06/18/18 02:07 Dose: 0.63 mg Levetiracetam (Keppra) 500 mg PO Q12 [facility] Last Admin: 06/17/18 21:07 Dose: 500 mg Memantine (Namenda) 10 mg PO HS [facility] Last Admin: 06/17/18 21:07 Dose: 10 mg Methylprednisolone (Solu-Medrol) 20 mg IVP BID [facility] Last Admin: 06/17/18 18:09 Dose: 20 mg Metoprolol Tartrate (Lopressor) 50 mg PO Q8 [facility] Morphine Sulfate (Morphine) 0.5 mg IM Q5H PRN PRN Reason: Pain, severe (8-10) Last Admin: 06/17/18 09:55 Dose: 0.5 mg Nystatin (Nystatin Oral Susp) 5 ml PO QID [facility] Last Admin: 06/17/18 21:09 Dose: 5 ml Oxycodone/Acetaminophen (Percocet 5/325 Mg Tab) 1 tab PO Q6H PRN PRN Reason: Pain, moderate (4-7) Stop: 06/19/18 10:26 Last Admin: 06/17/18 21:07 Dose: 1 tab Pantoprazole Sodium (Protonix Ec Tab) 40 mg PO DAILY [facility] Last Admin: 06/17/18 10:16 Dose: 40 mg Polyethylene Glycol (Miralax) 17 gm PO BID [facility] Last Admin: 06/17/18 18:05 Dose: Not Given Verapamil HCl (Verapamil Inj) 2.5 mg IVP Q6H PRN PRN Reason: for heart rate >120 Last Admin: 05/28/18 23:32 Dose: 2.5 mg - Labs Labs: 06/10/18 06:20 06/13/18 06:00 PT 12.8 SECONDS (9.4-12.5) H 05/20/18 10:45 INR 1.11 (0.93-1.08) H 05/20/18 10:45 APTT 24.7 Seconds (25.1-36.5) L 05/20/18 10:45 - Constitutional Appears: No Acute Distress, Cachectic, Chronically Ill - Head Exam Head Exam: ATRAUMATIC, NORMAL INSPECTION, NORMOCEPHALIC - Eye Exam Eye Exam: PERRL - ENT Exam ENT Exam: Mucous Membranes Dry Additional comments: oral thrush noted but improved from prior exams - Respiratory Exam Respiratory Exam: Decreased Breath Sounds, Prolonged Expiratory Phase. absent: Accessory Muscle Use, Chest Wall Tenderness, Rales, Rhonchi, Wheezes - Cardiovascular Exam Cardiovascular Exam: +S1, +S2 - GI/Abdominal Exam GI & Abdominal Exam: Normal Bowel Sounds. absent: Guarding, Rebound - Extremities Exam Extremities Exam: absent: Pedal Edema - Skin Skin Exam: Dry, Intact. absent: Erythema Assessment and Plan - Assessment and Plan (Free Text) Assessment: Ms. Brannon is a 63 year old female with PMH of metastatic non-small cell lung cancer with metastasis to the brain status post craniotomy, who came in with confusion, fever, and dyspnea on 05/21/18. Current plan is hospice care. Palliative care consult appreciated. She is still requiring high flow O2 overnight. Plan to continue to wean so she can be accepted at LTAC. Case and plan were reviewed and discussed in detail with my attending physician Dr. Dillon Robins DO IM Resident PGY-1
[2018-06-18] MEDS: Budesonide 0.5 mg/2 ml Inhal Susp UD IH SCH (07:14)
[2018-06-18 08:00] LABS: HEMOGLOBIN 10.3 g/dL (12.0-16.0); MEAN CORPUSCULAR HEMOGLOBIN 31.9 pg (25.0-35.0); MEAN CORPUSCULAR HGB CONC 31.9 g/dl (31.0-37.0); RBC 3.23 10^6/uL (3.5-6.1); RED CELL DISTRIBUTION WIDTH 16.6 % (11.5-14.5); WHITE BLOOD COUNT 8.5 10^3/ul (4.5-11.0)
[2018-06-18 08:15] LABS: PLATELET COUNT 38 10^3/uL (120.0-450.0)
[2018-06-18] MEDS: Pantoprazole 40 mg EC Tab PO SCH (11:14)
[2018-06-18] MEDS: Nystatin 100,000 Units/ml Oral Susp 5 ml UD PO SCH ×2 (11:14→15:15)
[2018-06-18] MEDS: Oxycodone/Acetaminophen 5/325 mg Tab PO PRN (11:14)
[2018-06-18] MEDS: POLYETHYLENE GLYCOL 3350 17 GM/Dose PACKET PO SCH (11:14)
[2018-06-18] MEDS: MethylPREDNISolone 40 mg Vial IVP SCH (11:15)
--- NOTE | 2018-06-18 15:18 | PN ---
DATE: 06/18/2018 PULMONARY PROGRESS NOTE REFERRING PHYSICIAN: Dr. Yaneth Darby MD. SUBJECTIVE: She is lying in the bed, head at 45 degrees. Sleepy, arousable, on high-flow oxygen. Seems stable on it. Spoke to nursing staff. Could not place on noninvasive ventilation because of claustrophobia, becomes nervous and becomes hypoxemic. No hemoptysis. No hematemesis. No hematuria. No diarrhea reported. OBJECTIVE: GENERAL: In no acute distress. VITAL SIGNS: Temperature is 98, heart rate is 72, respiratory rate is 20, blood pressure 92/60, pulse ox 95% on 40% high-flow with 70% oxygen. HEENT: Moist mucous membrane. No ulcer or thrush noted. NECK: Supple. No JVD. LUNGS: Have scattered rhonchi and crackles. HEART: S1 and S2. ABDOMEN: Soft, nontender. No organomegaly. EXTREMITIES: There is no edema. NEUROLOGICAL: Sleepy, arousable. Follows simple command. MEDICATIONS: She is on folic acid 1 mg daily, Keppra 500 mg twice a day, Lopressor 50 mg every 8 hours, MiraLax 17 g twice a day, morphine 0.5 mg IM every 5 minutes p.r.n., Namenda 10 mg at bedtime, nystatin oral suspension four times a day, Pepcid 40 mg at bedtime, Percocet 5/325 one tab every 6 hours p.r.n., Protonix 40 mg daily, Pulmicort inhaled twice a day, Solu-Medrol 20 mg twice a day, Tylenol p.r.n., verapamil 2.5 mg every 6 hours p.r.n., Xopenex 0.63 every 6 hours. LABORATORY DATA: Shows hemoglobin 10.3, hematocrit 32.3, WBC 8.5, platelet is 38. IMPRESSION AND PLAN: Respiratory failure requiring high-flow nasal cannula, claustrophobic, cardiac diastolic dysfunction, hypertension, lung cancer, metastatic disease with brain and bones requiring craniotomy. DNR, DNI. Spoke to General Partner. Spoke to nursing staff. Also, spoke to respiratory therapist. We will give p.r.n. Ativan. Try again bilevel positive airway pressure 16/6 with 100% oxygen . Continue p.r.n. morphine and pain management. Overall, very poor prognosis. Thank you and we will follow with you. Chica Palmer MD [facility] # [id number]
[2018-06-18 15:58] LABS: GFR AFRICAN-AMERICAN > 60; GFR NON-AFRICAN AMERICAN > 60
[2018-06-18 16:12] LABS: ALT/SGPT 36 U/L (7-56); AST/SGOT 35 U/L (14-36); BLOOD UREA NITROGEN 46 mg/dL (7-21); CALCIUM 9.9 mg/dL (8.4-10.5)
--- NOTE | 2018-06-18 16:27 | CP.PCM.PN ---
Subjective - Date & Time of Evaluation Date of Evaluation: 06/18/18 Time of Evaluation: 11:55 - Subjective Subjective: Still on high flow oxygen , afebrile. Objective - Vital Signs/Intake and Output Vital Signs (last 24 hours): Temp Pulse Resp BP Pulse Ox 97.7 F 72 18 92/60 L 95 06/18/18 06:00 06/18/18 06:00 06/18/18 06:00 06/18/18 06:00 06/18/18 06:00 Intake and Output: 06/18/18 06/18/18 06:59 18:59 Intake Total 240 Balance 240 - Medications Medications: Current Medications Acetaminophen (Tylenol 650 Mg Supp) 650 mg RC Q6H PRN PRN Reason: Pain, Mild (1-3) Budesonide (Pulmicort Respules) 0.5 mg IH [id number] [facility] Last Admin: 06/18/18 07:14 Dose: 0.5 mg Famotidine (Pepcid) 40 mg PO HS [facility] Last Admin: 06/17/18 21:07 Dose: 40 mg Folic Acid (Folic Acid) 1 mg PO DAILY [facility] Last Admin: 06/17/18 10:16 Dose: 1 mg Levalbuterol HCl (Xopenex) 0.63 mg IH [id number] [facility] Last Admin: 06/18/18 07:15 Dose: 0.63 mg Levetiracetam (Keppra) 500 mg PO Q12 [facility] Last Admin: 06/17/18 21:07 Dose: 500 mg Memantine (Namenda) 10 mg PO HS [facility] Last Admin: 06/17/18 21:07 Dose: 10 mg Methylprednisolone (Solu-Medrol) 20 mg IVP BID [facility] Last Admin: 06/17/18 18:09 Dose: 20 mg Metoprolol Tartrate (Lopressor) 50 mg PO Q8 [facility] Morphine Sulfate (Morphine) 0.5 mg IM Q5H PRN PRN Reason: Pain, severe (8-10) Last Admin: 06/17/18 09:55 Dose: 0.5 mg Nystatin (Nystatin Oral Susp) 5 ml PO QID [facility] Last Admin: 06/17/18 21:09 Dose: 5 ml Oxycodone/Acetaminophen (Percocet 5/325 Mg Tab) 1 tab PO Q6H PRN PRN Reason: Pain, moderate (4-7) Stop: 06/19/18 10:26 Last Admin: 06/17/18 21:07 Dose: 1 tab Pantoprazole Sodium (Protonix Ec Tab) 40 mg PO DAILY [facility] Last Admin: 06/17/18 10:16 Dose: 40 mg Polyethylene Glycol (Miralax) 17 gm PO BID [facility] Last Admin: 06/17/18 18:05 Dose: Not Given Verapamil HCl (Verapamil Inj) 2.5 mg IVP Q6H PRN PRN Reason: for heart rate >120 Last Admin: 05/28/18 23:32 Dose: 2.5 mg - Labs Labs: 06/18/18 07:30 06/13/18 06:00 PT 12.8 SECONDS (9.4-12.5) H 05/20/18 10:45 INR 1.11 (0.93-1.08) H 05/20/18 10:45 APTT 24.7 Seconds (25.1-36.5) L 05/20/18 10:45 - Constitutional Appears: Chronically Ill - Head Exam Head Exam: NORMAL INSPECTION - Respiratory Exam Respiratory Exam: Decreased Breath Sounds - Cardiovascular Exam Cardiovascular Exam: +S1, +S2 - GI/Abdominal Exam GI & Abdominal Exam: Soft. absent: Tenderness Assessment and Plan - Assessment and Plan (Free Text) Plan: Assessment S/P severe sepsis due to HCAP non-small cell lung cancer stage 4 with bone metastases on chemotherapy Plan continue to monitor clinically off antibiotics since she is at risk for nosocomial infections overall prognosis is poor
[2018-06-18 17:18] VITALS: BP 89/59; RESP 18; TEMP 97.9; O2SAT 93
[2018-06-18 17:43] VITALS: PULSE 131
--- NOTE | 2018-06-18 19:56 | CP.PCM.PRO ---
Pronouncement of Note - Clinical Findings Physical Exam: No Response Verbal/Painful Stimuli, Absent Peripheral Pulses{ Carotid & Femoral}, Absent Heart & Breath Sounds, No Pupillary Light Reflex, No Corneal Reflex, Pupils Fixed & Dilated, Absence of Vital Signs - Pronouncement Time Time of Pronouncement of : 19:46 Additional Comments: Family was at bedside and Dr. Darby notified. - Notifications Pronouncement Notifications: Family Notified, Atending Notified
--- NOTE | 2018-06-18 20:01 | PCM.RRT ---
APPOINTMENT SETTER Nurse Assessment - Situation Date: 06/18/18 Time APPOINTMENT SETTER was called: 19:10 APPOINTMENT SETTER Responder Arrival Time: 19:10 APPOINTMENT SETTER Location:: [address] [place] [address] Room Number: 577 APPOINTMENT SETTER Reason for Call: Hypotension, Respiratory Distress, O2 Saturation below 90% APPOINTMENT SETTER Called By: RN - IV IV Inserted during APPOINTMENT SETTER?: No IV Fluids Initiated During APPOINTMENT SETTER?: 0.9NS Bolus, open - Respiratory Oxygen Delivery Method: BiPAP @% Received Nebulizer Treatments:: No Was the Patient Ventilated with Bag/Mask 100% O2?: Yes Secretions Suctioned?: No Was the Patient Intubated?: No Was the Patient Placed on a Ventilator?: No - Medication Medications Administered During APPOINTMENT SETTER: NS 1L bolus - Diagnostic Test Ordered EKG: No Chest X-Ray: No CT Scan: No - Stat Labs Ordered APPOINTMENT SETTER Stat Labs Ordered: CBC, BMP, TROPONIN, LACTIC ACID, BLOOD C&S X2, ABG CPR started during APPOINTMENT SETTER?: No - Vital Signs Vital Sign: Rapid Response Vital Sign Blood Pressure 69/50 Pulse Rate 44 Respiratory Rate 24 Temperature 101.2 F Oxygen Saturation 84 - Finger Stick Blood Glucose Finger Stick Blood Glucose: 174 - [place] Coma Scale Coma Scale Eye Opening: Spontaneous Coma Scale Motor: Obeys Commands Movement Coma Scale Verbal: Oriented - Sepsis Screen Part 1 Sepsis Screen Part 1: Hypotensive - Time APPOINTMENT SETTER Ended Time APPOINTMENT SETTER Ended: 19:46 - Vital Signs at end of APPOINTMENT SETTER Vital Signs at end of APPOINTMENT SETTER: Rapid Response End Vital Sign Blood Pressure 102/68 Pulse Rate 0 Respiratory Rate 0 Temperature 101.2 F - Recommendations 5) APPOINTMENT SETTER Level of Care Recommendations: Transfer to Telemetry Notifications: Attending Physician, Family or Designated Caregiver - Neurological Status (Select all that apply): absent: Alert, Responsive, Oriented, Verbal, Follows Commands - Respiratory Oxygen Delivery Method: BiPAP @% - Eyes Additional Comments: Absent pupilary light reflex - Respiratory Exam Respiratory Exam: Accessory Muscle Use. absent: NORMAL BREATHING PATTERN - Cardiovascular Exam Cardiovascular Exam: absent: REGULAR RHYTHM - GI/Abdominal Exam GI & Abdominal Exam: absent: Normal Bowel Sounds - Neurological Exam Neurological Exam: absent: Alert, Awake, Oriented x3 - Extremities Exam Extremities Exam: absent: Normal Capillary Refill Plan - Assessment of Findings&Treatment Plan Rapid response was called at 19:10. Upon arrival, patient was having respiratory arrest. Patient is DNR/DNI. Vital signs on arrival were: HR: 44, BP : 69/50, RR: 24, o2: 84%. We switched patient's high flow oxygen to bag mask. Patient was then given IVF. On examination, patient's pupillary reflex was absent, patient non-responsive with sternal rub, carotid pulses were distant and faint, and femoral artery dopplerable. Patient's breathing started to decrease in rate and was agonal. Patient at 19:46, family was at bedside and Dr. Darby is notified.
== END 2018-06-18 19:45 | DRG 584 ==
LOC: ED 10:16 → ERH 12:54 → 2RSO 13:56 → 3RSO 05-22 16:30 → 2RNO 05-27 12:43 → CCU 06-01 11:55 → 5RSO 06-03 16:16
PROVIDERS: ADMIT Internal Medicine; ATTEND Internal Medicine
PROC: 3E0F7GC Introduction of Other Therapeutic Substance into Respiratory Tract, Via Natural or Artificial Opening (ICD-10-PCS; 2018-05-20)
PROC: 5A09457 Assistance with Respiratory Ventilation, 24-96 Consecutive Hours, Continuous Positive Airway Pressure (ICD-10-PCS; 2018-05-31)
PROC: 3E03328 Introduction of Oxazolidinones into Peripheral Vein, Percutaneous Approach (ICD-10-PCS; principal; 2018-06-01)
DX: A41.9 Sepsis, unspecified organism (principal); J69.0 Pneumonitis due to inhalation of food and vomit; I82.422 Acute embolism and thrombosis of left iliac vein; I82.220 Acute embolism and thrombosis of inferior vena cava; R65.21 Severe sepsis with septic shock; E43 Unspecified severe protein-calorie malnutrition; J96.90 Respiratory failure, unspecified, unspecified whether with hypoxia or hypercapnia; C79.31 Secondary malignant neoplasm of brain; D61.818 Other pancytopenia; C34.90 Malignant neoplasm of unspecified part of unspecified bronchus or lung; J44.1 Chronic obstructive pulmonary disease with (acute) exacerbation; C79.51 Secondary malignant neoplasm of bone; E87.6 Hypokalemia; E27.40 Unspecified adrenocortical insufficiency; I50.9 Heart failure, unspecified; I11.0 Hypertensive heart disease with heart failure; F03.90 Unspecified dementia, unspecified severity, without behavioral disturbance, psychotic disturbance, mood disturbance, and anxiety; B37.0 Candidal stomatitis; I25.10 Atherosclerotic heart disease of native coronary artery without angina pectoris; F17.210 Nicotine dependence, cigarettes, uncomplicated; G40.909 Epilepsy, unspecified, not intractable, without status epilepticus; Y95 Nosocomial condition; R62.7 Adult failure to thrive; R00.0 Tachycardia, unspecified; R13.12 Dysphagia, oropharyngeal phase; I27.20 Pulmonary hypertension, unspecified; E86.0 Dehydration; Z66 Do not resuscitate; G89.3 Neoplasm related pain (acute) (chronic); Z51.5 Encounter for palliative care; E78.00 Pure hypercholesterolemia, unspecified; F40.240 Claustrophobia; Z86.718 Personal history of other venous thrombosis and embolism; Z90.710 Acquired absence of both cervix and uterus